=== PATIENT | male | born 1965 | race Caucasian/White ===

== ENCOUNTER 2016-10-10 11:09 | Inpatient (IN) | payer MEDICARE, OTHER ==
[2016-10-10] VITALS (16 sets, daily range): BP systolic 150–172; BP diastolic 89–105; PULSE 84–101; RESP 11–21; BMI 31.6
[~2016-10-10] VITALS: Ht 165.1 cm; Wt 84.8 kg
[2016-10-10] MEDS ORDERED: LORAZEPAM 2 MG INJ IV ONE (11:30)
[2016-10-10 11:48] LABS: BASOPHIL # 0.1 10^3/ul (0.0-0.1); BASOPHILS % 0.6 % (0.0-2.0); EOSINOPHILS # 0.2 10^3/ul (0.0-0.5); EOSINOPHILS % 1.6 % (0.0-7.0); HEMATOCRIT 34.2 % (42.0-52.0); HEMOGLOBIN 11.7 g/dl (14.0-18.0); LYMPHOCYTES # 3.3 10^3/ul (0.8-2.9); LYMPHOCYTES % 25.8 % (15.0-51.0); MEAN CORPUSCULAR HEMOGLOBIN 32.3 pg (29.0-33.0); MEAN CORPUSCULAR HGB CONC 34.4 g/dl (32.0-37.0); MEAN PLATELET VOLUME 7.6 fl (7.4-10.4); MONOCYTE # 1.3 10^3/ul (0.3-0.9); MONOCYTES % 10.3 % (0.0-11.0); NEUTROPHIL # 7.9 10^3/ul (1.6-7.5); NEUTROPHILS % 61.7 % (39.0-77.0); PLATELET COUNT 271 10^3/UL (140-440); RED BLOOD COUNT 3.64 10^6/ul (4.70-6.10); RED CELL DISTRIBUTION WIDTH 15.4 % (11.5-14.5); UNCORRECTED WBC 12.8 10^3/ul (4.8-10.8); WHITE BLOOD COUNT 12.8 10^3/ul (4.8-10.8)
[2016-10-10 11:50] LABS: CONDITION 1; LH ANALYZER COMMENTS 1
[2016-10-10 11:54] LABS: CHLORIDE 89 mmol/L (97-110)
[2016-10-10 11:55] LABS: POTASSIUM 3.9 mmol/L (3.5-5.1)
--- NOTE | 2016-10-10 11:56 | RADRPT ---
PROCEDURE: XR Chest. CLINICAL INDICATION: Sepsis TECHNIQUE: Chest AP portable. COMPARISON: 09/21/2016 FINDINGS: Tracheostomy tube. Right-sided WASTE MANAGEMENT SPECIALIST shunt. The mediastinal structures are unremarkable. The heart is normal in size and configuration. The pu lmonary vascularity is normal. There are bibasilar patchy consolidation/subsegmental atelectasis. There are small bilateral pleural effusions. The axial skeleton is unremarkable. IMPRESSION: Bibasilar patchy consolidation/subsegmental atelectasis Small bilateral pleural effusions RPTAT: HGDB .Rolo Fernandez MD, MD Date Time Electronically viewed and signed by .Rolo Fernandez MD, MD on 10/10/2016 11:55 .B/
[2016-10-10 11:57] LABS: ANION GAP 15 (8-16); ASPARTATE AMINO TRANSFERASE 65 IU/L (15-46); BILIRUBIN,INDIRECT 0.3 mg/dl (0-1.1); BILIRUBIN,TOTAL 0.3 mg/dl (0.2-1.3); CARBON DIOXIDE 19 mmol/L (21-31); CREATININE 0.32 mg/dl (0.61-1.24)
[2016-10-10 11:58] LABS: ALANINE AMINOTRANSFERASE 86 IU/L (13-69); ALKALINE PHOSPHATASE 227 IU/L (42-121); BLOOD UREA NITROGEN 12 mg/dl (7-20); CALCIUM 7.9 mg/dl (8.4-10.2); GLUCOSE 158 mg/dl (70-220)
[2016-10-10] MEDS ORDERED: SODIUM CHLORIDE 0.9% 1L BAG IV* STA (11:59)
[2016-10-10] MEDS ORDERED: CEFEPIME 2GM/50 ML (PMX) 50 ML IVPB STA (11:59)
[2016-10-10] MEDS ORDERED: CIPROFLOXACIN 400MG/D5W 200 ML IVPB STA (11:59)
[2016-10-10 12:07] LABS: SODIUM 119 mmol/L (135-144)
[2016-10-10 12:29] LABS: TROPONIN-I < 0.012 ng/ml (0.00-0.12)
[2016-10-10] MEDS ORDERED: LABETALOL HCL 20MG INJ IV ONE ×2 (12:30→21:00)
[2016-10-10 13:05] LABS: INR 1.03; PROTIME 13.5 Sec (12.2-14.2); PT RATIO 1.1
[2016-10-10 13:06] LABS: PARTIAL THROMBOPLASTIN TIME 47.7 Sec (25.0-35.0)
[2016-10-10] MEDS ORDERED: CEFAZOLIN 2 GM/50 ML (PMX) 50 ML IVPB ONE (13:30)
--- NOTE | 2016-10-10 13:39 | RADRPT ---
PROCEDURE: CT Brain without contrast. CLINICAL INDICATION: AMS, seizures TECHNIQUE: A CT of the brain was performed utilizing axial imaging from the skull base through the vertex without IV contrast. Multiplanar reformatted images were made. Images were reviewed on a [employer] workstation. The CTDIvol is 44 mGy and the DLP is 720 mGycm. COMPARISON: Head CT September 14, 2016 FINDINGS: Again noted is a right frontal PILOT BOAT DECKHAND shunt. The tip is in the frontal horn of the right lateral ventri ana lilia. There is evidence of old left frontal craniotomy. There is mild diffuse cerebral volume loss with sulcal and ventricular dilatation. No discrete extr a-axial fluid collection or masses present. The ventricles are in the midline and of normal contour and configuration. There is bifrontal encephalomalacia, left greater than right possibly related t o prior trauma. In addition, there is old infarct involving the left cerebellar hemisphere. No oth er intra-axial masses or regions of abnormal attenuation are seen. There is no intracranial hemorrh age. Noted is opacification of the right and left mastoid air cells, middle ear and petrous portion of th e temporal bones. Addition, there is complete opacification of the sphenoid sinus with opacificatio n of scattered ethmoid air cells. IMPRESSION: No acute abnormality. Atrophy. Right frontal PILOT BOAT DECKHAND shunt . Bifrontal white matter disease, left grea ter than right likely related to prior trauma. Old left cerebellar infarct. No intracranial hemorr eliezer or mass. No change. .Yeyo Carlos MD, MD Date Time Electronically viewed and signed by .Yeyo Carlos MD, MD on 10/10/2016 13:39 .A/
[2016-10-10 13:51] LABS: ADD UMIC NO; URINE BILIRUBIN (Dip) NEGATIVE (NEGATIVE); URINE BLOOD (Dip) NEGATIVE (NEGATIVE); URINE COLOR LT. YELLOW (YELLOW); URINE KETONES (Dip) NEGATIVE (NEGATIVE); URINE LEUKOCYTE ESTERASE (Dip) NEGATIVE (NEGATIVE); URINE NITRITE (Dip) NEGATIVE (NEGATIVE); URINE TOTAL PROTEIN (Dip) NEGATIVE (NEGATIVE); URINE UROBILINOGEN (Dip) 2.0 E.U./dL (0.1-1.0)
--- NOTE | 2016-10-10 13:53 | ERA ---
ER Documentation Chief Complaint Date/Time DATE: 10/10/16 TIME: 13:47 Chief Complaint seizure like activity HPI This is a 51-year-old male who presents to the emergency room from his rehabilitation center for evaluation of seizures. This patient is a trach to vent patient with a PEG tube secondary to previous CVA. According to the long term the patient has been having seizure-like activity for today. They deny any fevers in this patient and brought the patient in for evaluation. ROS All systems reviewed and are negative except as per history of present illness. Allergies Allergies: Coded Allergies: No Known Allergy (Unverified , 08/21/16) PMhx/Soc Hx Alcohol Use: No Hx Substance Use: No Hx Tobacco Use: No Smoking Status: Former smoker Physical Exam Vitals Vital Signs Date Time Temp Pulse Resp B/P Pulse Ox O2 Delivery O2 Flow Rate FiO2 10/10/16 13:41 98 14 159/99 99 Mechanical Ventilator 10/10/16 12:39 88 14 144/84 99 Room Air 10/10/16 11:43 126 17 98 50 10/10/16 11:23 98.2 127 18 184/106 98 Physical Exam INITIAL VITAL SIGNS: Reviewed by me GENERAL: The patient is poorly developed, actively seizing HEENT: Tracheostomy in place, pupils equal, round, and reactive to light. EOMI. There is no scleral icterus. NECK: C-spine is soft and supple, there is no meningismus. There is no cervical lymphadenopathy. LUNGS: Coarse breath sounds bilaterally HEART: Tachycardic, no murmurs, clicks, rubs or gallops. ABDOMEN: Soft, non-tender, non-distended. There are bowel sounds in all four quadrants. No rebound or guarding. EXTREMITIES: 2+ pitting edema in the bilateral lower extreme NEUROLOGICAL: Actively seizing SKIN: There is no apparent rash or petechiae. HEME/LYMPHATIC: There is no evidence of excessive bruising or lymphedema. PSYCHIATRIC: The patient does not appear anxious or depressed. Result Diagram: 10/10/16 1120 10/10/16 1120 Results 24 hrs Laboratory Tests Test 10/10/16 11:20 Activated Partial Thromboplast Time 47.7Sec Alanine Aminotransferase (ALT/SGPT) 86IU/L Albumin 3.0g/dl Albumin/Globulin Ratio 1.00 Alkaline Phosphatase 227IU/L Anion Gap 15 Aspartate Amino Transf (AST/SGOT) 65IU/L Basophils # 0.110^3/ul Basophils % 0.6% Blood Morphology Comment Blood Urea Nitrogen 12mg/dl Calcium Level 7.9mg/dl Carbon Dioxide Level 19mmol/L Chloride Level 89mmol/L Creatinine 0.32mg/dl Direct Bilirubin 0.00mg/dl Eosinophils # 0.210^3/ul Eosinophils % 1.6% Globulin 3.00g/dl Glucose Level 158mg/dl Hematocrit 34.2% Hemoglobin 11.7g/dl INR International Normalized Ratio 1.03 Indirect Bilirubin 0.3mg/dl Lactic Acid Level 1.6mmol/L Lymphocytes # 3.310^3/ul Lymphocytes % 25.8% Mean Corpuscular Hemoglobin 32.3pg Mean Corpuscular Hemoglobin Concent 34.4g/dl Mean Corpuscular Volume 94.0fl Mean Platelet Volume 7.6fl Monocytes # 1.310^3/ul Monocytes % 10.3% Neutrophils # 7.910^3/ul Neutrophils % 61.7% Nucleated Red Blood Cells # 0.010^3/ul Nucleated Red Blood Cells % 0.0/100WBC Platelet Count 16785^3/UL Potassium Level 3.9mmol/L Prothrombin Time 13.5Sec Prothrombin Time Ratio 1.1 Red Blood Count 3.6410^6/ul Red Cell Distribution Width 15.4% Sodium Level 119mmol/L Total Bilirubin 0.3mg/dl Total Protein 6.0g/dl Troponin I < 0.012ng/ml White Blood Count 12.810^3/ul Current Medications Medications (Trade) Dose Ordered Sig/Fanta Route PRN Reason Start Time Stop Time Status Last Admin Dose Admin Lorazepam (Ativan) 2 mg ONCE ONCE IV 10/10/16 11:30 10/10/16 11:31 10/10/16 11:25 Sodium Chloride 2330 ml 2,330 ml BOLUS OVER 2 HOURS STAT IV* 10/10/16 11:59 10/10/16 12:00 10/10/16 12:20 Cefepime HCl 50 ml @ 100 mls/hr ONCE STAT IVPB 10/10/16 11:59 10/10/16 12:28 10/10/16 13:40 Ciprofloxacin/ Dextrose (Cipro Ivpb) 200 ml @ 200 mls/hr ONCE STAT IVPB 10/10/16 11:59 10/10/16 12:58 10/10/16 12:20 Labetalol HCl 10 mg 10 mg ONCE ONCE IV 10/10/16 12:30 10/10/16 12:31 10/10/16 12:20 Cefazolin Sodium/ Dextrose (Ancef 2 Gm/50 ml (Pmx)) 50 ml @ 100 mls/hr ONCE ONCE IVPB 10/10/16 13:30 10/10/16 13:30 DC Procedures/MDM EKG: Rate/Rhythm: Sinus tachycardia QRS, ST, T-waves: [No changes consistent w/ acute ischemia] Impression: [No evidence of ischemia or arrhythmia] Chest X-ray 1V Interpreted by me: Soft Tissue: Bilateral pneumonia Bones: No acute abnormalities Mediastinum/Cardiac Silhouette/Lungs: [No acute abnormalities] CT head without: No acute abnormality. Atrophy. Right frontal WEBSITE PROJECT MANAGER shunt . Bifrontal white matter disease, left greater than right likely related to prior trauma. Old left cerebellar infarct. No intracranial hemorrhage or mass. No change. This is a 51-year-old male who presents to the emergency room for evaluation of seizure-like activity. When I evaluated him was actively seizing. He was tachycardic, and an actively seizing. I did give this patient 2 mg of Ativan which broke his seizure. This patient did have a septic workup which does show a critically low sodium of 119. This patient was also found to have bilateral pneumonias with a leukocytosis. Blood and urine cultures were obtained. The patient was given greater than 30 cc/kg of IV normal saline, and was started on cefepime and ciprofloxacin for hospital-acquired pneumonia with sepsis. This patient will be placed in for admission at this time and will be placed in ICU for critically low potassium. He has no seizure activity after Ativan, and I do not feel the necessity to administer 3% sodium chloride to 2 his response to Ativan at this time. He is a DNR however given his seizure activity and low sodium levels this patient will need to be placed in ICU at this time. Family is at bedside and is aware of his condition. Critical Care: Excluding all billable procedures Time: 38 minutes Treatments/Evaluations: Close monitoring and treatment of unstable vital signs, cardiorespiratory, and neurologic status, while maintaining tight balance of fluid, respiratory, and cardiac interventions. Departure Diagnosis: Primary Impression: Sepsis Additional Impressions: Bilateral pneumonia Hyponatremia Seizure-like activity Normocytic anemia Hyperchloremia Condition: Critical JAMES RIOS DO Oct 10, 2016 13:53
[2016-10-10] MEDS ORDERED: NITROGLYCERIN (SL) 0.4 MG TAB SL PRN (14:00)
[2016-10-10] MEDS ORDERED: SOD CHLORIDE 0.9% 1,000 ML IV ONE (14:00)
[2016-10-10] MEDS ORDERED: DOCUSATE SODIUM 100 MG CAP PO PRN (14:00)
--- NOTE | 2016-10-10 14:23 | HP ---
Date/Time of Note Date/Time of Note DATE: 10/10/16 TIME: 14:13 Assessment/Plan VTE Prophylaxis VTE Prophylaxis Intervention: SCD's Assessment/Plan Assessment/Plan 51 yo male with a past medical history of CVA with trach/peg status, who came via [facility] from [facility]. 1. Encephalopathy - neurologic type - will admit the patient to the ICU for seizures and severe hyponatremia. 2. Seizures 2/2 to severe hyponatremia - will consult neurology, start keppra, seizure precautions, prn ativan for overriding seizures, check TSH/Mag, Vit B12 , folate levels, EEG 3. Severe hyponatremia - IV NS bolus - as per renal, if not elevated SIADH vs other etiologies - will start hypertonic saline if need be 4. Sepsis 2/2 to bilateral pneumonia - HCAP - will start cefepime/vanc/levaquin - consult ID 5. Vent dependent respiratory failure - consult pulm, continue with vent - wean as tolerated 6. Anemia - chronic disease - monitor H/H 7. ADMINISTRATIVE JOB TITLES shunt - monitor any acute changes 8. Transaminitis - monitor - 2/2 to sepsis 9. CVA - precautions - hold aspirin 10. GI ppx - protonix 11. DVT ppx - scds as per clinical course. this critical care note took greater than 1 hour to complete HPI/ROS Admit Date/Time Admit Date/Time 10/10/2016, 2:13 pm Hx of Present Illness 51 yo male with a past medical history of CVA with trach/peg status, who came via [facility] from [facility]. He normally communicates through head motions, but as per the that suddenly declined. Otherwise all this information was gathered from the chart and ED physician since the patient is obtunded. ED course: ativan, seizure precautions ROS Subjective hx not possible: pt non-verbal PMH/Family/Social Past Medical History CVA, trach/peg, right vp corporate development shunt Past Surgical History trach/peg Social History Alcohol Use: none Smoking Status: Former smoker Drug Use: none Exam/Review of Systems Vital Signs Vitals Vital Signs Date Time Temp Pulse Resp B/P Pulse Ox O2 Delivery O2 Flow Rate FiO2 10/10/16 13:41 98 14 159/99 99 Mechanical Ventilator 10/10/16 11:43 50 10/10/16 11:23 98.2 Exam Exam Gen Octavia: obtunded HEENT: NC/AT, PERRLA, trach NECK: trached, no secretions noted THORAX: symmetrical, no obvious deformities CV: S1S2, RRR, no M/G/R Lungs: bilateral rhonchi with end expiratory wheezing noted, no crackles Abd: soft, NT/ND, +BS, no rebound, no guarding, neg HSM, peg site C/D/I EXT:trace bilateral lower extremity edema, no ecchymosis, no clubbing, muscle wasting noted Neuro: obtunded, no active seizure like activity noted Psych: cannot asses Skin: decreased skin turgor Labs Result Diagram: 10/10/16 1120 10/10/16 1120 Medications Medications Current Medications Lorazepam (Ativan) 2 mg ONCE ONCE IV Last administered on 10/10/16 11:25; Admin Dose 2 MG; Start 10/10/16 at 11:30; Stop 10/10/16 at 11:31 Labetalol HCl 10 mg 10 mg ONCE ONCE IV Last administered on 10/10/16 12:20; Admin Dose 10 MG; Start 10/10/16 at 12:30; Stop 10/10/16 at 12:31 Sodium Chloride (NS) 1,000 ml @ 75 mls/hr [id number] IV ; Start 10/10/16 at 13:49 ; Status UNV Ondansetron HCl (Zofran Inj) 4 mg Q6H PRN IV NAUSEA AND/OR VOMITING; Start 07/16 at 14:00; Status UNV Nitroglycerin (Nitroglycerin (Sl Tab) 0.4 Mg) 1 tab Q5M PRN SL CHEST PAIN; Start 10/10/16 at 14:00; Status UNV Acetaminophen (Tylenol Supp) 650 mg Q4H PRN [place] PAIN LEVEL 1-3 OR FEVER; Start 10/10/16 at 14:00; Status UNV Morphine Sulfate (morphine) 2 mg Q4H PRN IV PAIN LEVEL 7-10; Start 10/10/16 at 14:00; Status UNV Lorazepam (Ativan) 1 mg Q2H PRN IV ANXIETY; Start 10/10/16 at 14:00; Status UNV Docusate Sodium (Colace) 100 mg Q12H PRN PO CONSTIPATION; Start 10/10/16 at 14: 00; Status UNV Pantoprazole 40 mg 40 mg DAILY@06 IV ; Start 10/11/16 at 06:00; Status UNV Levetiracetam 1000 mg/Sodium Chloride 110 ml @ 440 mls/hr Q12 IVPB ; Start 07/16 at 14:00 Sodium Chloride (NS) 1,000 ml @ 1,000 mls/hr Q1H ONCE IV ; Start 10/10/16 at 14 :00; Stop 10/10/16 at 14:59; Status UNV Procedures Procedures CT brain IMPRESSION: No acute abnormality. Atrophy. Right frontal ADMINISTRATIVE JOB TITLES shunt . Bifrontal white matter disease, left greater than right likely related to prior trauma. Old left cerebellar infarct. No intracranial hemorrhage or mass. No change. CXR IMPRESSION: Bibasilar patchy consolidation/subsegmental atelectasis Small bilateral pleural effusions MADDY HOPKINS MD Oct 10, 2016 14:23
[2016-10-10] MEDS ORDERED: CEFEPIME 1GM/50 ML (PMX) 50 ML IVPB SCH (14:30)
[2016-10-10] MEDS ORDERED: VANCOMYCIN IV PER PHARMACY XX SCH (14:30)
[2016-10-10] MEDS ORDERED: ASPI81TA3 GTB (14:32)
[2016-10-10] MEDS ORDERED: ACET-2047 GTB (14:32)
[2016-10-10] MEDS ORDERED: ATOR40TA68 GTB (14:33)
[2016-10-10] MEDS ORDERED: UDCOL GTB (14:33)
[2016-10-10] MEDS ORDERED: BENA10TA48 GTB (14:33)
[2016-10-10] MEDS ORDERED: IPRA3AMP INHALATION (14:35)
[2016-10-10] MEDS ORDERED: FAMO20TA18 GTB (14:35)
[2016-10-10] MEDS ORDERED: UDFER GTB (14:36)
[2016-10-10] MEDS ORDERED: FLEETOIL PR (14:36)
[2016-10-10] MEDS ORDERED: TAMS-14 GTB (14:37)
[2016-10-10 14:38] LABS: BACTERIA,URINE MANY; URINE RBCS NONE SEEN /HPF (0)
[2016-10-10] MEDS ORDERED: GLUC1VIA6 IJ (14:44)
[2016-10-10] MEDS ORDERED: INSU100V3 IJ (14:45)
[2016-10-10] MEDS ORDERED: HYDR-3671 GTB (14:45)
[2016-10-10] MEDS ORDERED: LEVEM SC (14:46)
[2016-10-10] MEDS ORDERED: METO-448 GTB (14:46)
[2016-10-10] MEDS ORDERED: UDKCL40 GTB (14:47)
[2016-10-10] MEDS ORDERED: MULTI PO (14:47)
[2016-10-10] MEDS ORDERED: SODI1TAB2 GTB (14:49)
[2016-10-10] MEDS ORDERED: PROT946L GTB (14:49)
[2016-10-10] MEDS ORDERED: ONDA-43 GTB (14:50)
[2016-10-10] MEDS: LEVETIRACETAM IV 1,000 MG in SOD CHLORIDE 0.9% 100 ML IVPB SCH (15:45)
[2016-10-10] MEDS ORDERED: VANCOMYCIN 1.5 GM in SOD CHLORIDE 0.9% 250 ML IVPB SCH ×2 (16:00→18:00)
[2016-10-10] MEDS: LEVOFLOXACIN 500MG/D5W (PMX) 100 ML IVPB SCH (17:22)
--- NOTE | 2016-10-10 17:42 | CONS ---
Date/Time of Note Date/Time of Note DATE: 10/10/16 TIME: 17:15 Assessment/Plan Assessment/Plan Chief Complaint/Hosp Course ID ASSESSMENT 51 yo M w/PMHx CVA-> Brain Tumor post chemo tx w/indwelling VPS, trach, peg admit with: 1. SIRS vs Sepsis, associated w/leukocytosis, accelerated HTN, tachycardia, and encephalopathy 2. Bilateral pneumonia = HCAP @ SNF, possible Aspiration PNA 3. Acute on chronic hypoxic vent dependent respiratory failure 4. Seizure-like activity 5. Hyponatremia w/Hyperchloremia 6. Normocytic anemia 7. Generalized muscle weakness, debility CODE STATUS: DNR CURRENT ABX: Vanco IV + Cefepime + Levaquin ID RECOMMENDATIONS 1. Concur with current broad spectrum ABX * Avoid carbapenems in setting of acute seizure activity 2. Blood, Urine, sputum for micro C&S 3. Swab bilateral nares for MRSA screening 4. Will follow the patient closely with you * Once again, thank you for the privilege of ID Consultation referral - report called to Dr. Sales who concurs. Problems: Consultation Date/Type/Reason Admit Date/Time 10/10/2016, 2:13 pm Date of Consultation: Oct 10, 2016 Type of Consultation: INFECTIOUS DISEASES Reason for Consultation ANTIBIOTIC MANAGEMENT Referring Provider: MADDY HOPKINS MD Hx of Present Illness * I'd like to thank Dr. Panchal for referring the patient to the ID Consult services of "Leonard Sales MD". 51 yo M w/PMHx RADIATOR FITTER shunt, seizure disorder presents to [facility] from [facility] with severe hyponatremia of 119 associated with seizure activity, in addition to mild leukocytosis @ 12.8 with acute PNA findings on CXR. The patient was started on broad spectrum IV ABX coverage w/Vanco IV, Cefepime, and Levaquin. Blood, urine cultures are pending. He presented with accelerated HTN reading > 184/101 with tachycardia HR 127. No fevers recorded. DIAGNOSTIC IMAGING REPORT Patient: REINA LOUIS DOS: 10/10/16 1112 PROCEDURE: XR Chest. CLINICAL INDICATION: Sepsis TECHNIQUE: Chest AP portable. COMPARISON: 09/21/2016 FINDINGS: Tracheostomy tube. Right-sided RADIATOR FITTER shunt. The mediastinal structures are unremarkable. The heart is normal in size and configuration. The pulmonary vascularity is normal. There are bibasilar patchy consolidation/subsegmental atelectasis. There are small bilateral pleural effusions. The axial skeleton is unremarkable. IMPRESSION: Bibasilar patchy consolidation/subsegmental atelectasis Small bilateral pleural effusions RPTAT: HGDB 10/10/16 CT Brain IMPRESSION: No acute abnormality. Atrophy. Right frontal RADIATOR FITTER shunt . Bifrontal white matter disease, left greater than right likely related to prior trauma. Old left cerebellar infarct. No intracranial hemorrhage or mass. No change. Subjective hx not possible: pt non-verbal, pt critical status Past Medical History HTN Diabetes Hx of brain tumor -> treated w/chemo tx Respiratory failure w/Tracheostomy Dysphagia w/peg Past Surgical History RADIATOR FITTER shunt placement Trach placement Peg Social History Alcohol Use: none Smoking Status: Former smoker Drug Use: none Exam/Review of Systems Vital Signs Vitals Vital Signs Date Time Temp Pulse Resp B/P Pulse Ox O2 Delivery O2 Flow Rate FiO2 10/10/16 17:10 99 14 100 50 10/10/16 17:09 164/101 Mechanical Ventilator 10/10/16 11:23 98.2 Exam Constitutional: non-verbal, other (Generalized debility, muscle weakness, encephalopathic ) Psych: other (Obtunded, not able to assess) Head: normocephalic Eyes: nl conjunctiva, nl lids, nl sclera ENMT: mucosa pink and moist, nl external ears & nose, nl lips & teeth, nl nasal mucosa & septum Neck: jvd, supple, No bruits, No masses, No nuchal rigidity, No other, No thyromegaly Respiratory: other (Vented coarse BS ) Cardiovascular: other (NSR on tele monitor ), regular rate and rhythm Gastrointestinal: other (Peg), soft Musculoskeletal: muscle weakness, No muscle tone, No nl gait and stance, No range of motion Extremities: normal pulses, palpable cord, No clubbing, No edema Neurological: other (Encephalopathic, no purposeful movement seen, responds to physical stimuli ) Skin: nl turgor, No diaphoresis, No other, No rash or lesions Lymph: No nl lymph nodes Results Result Diagram: 10/10/16 1120 10/10/16 1120 Results 24 hrs Laboratory Tests Test 10/10/16 11:20 10/10/16 11:30 10/10/16 13:30 Activated Partial Thromboplast Time 47.7 H Alanine Aminotransferase (ALT/SGPT) 86 H Albumin 3.0 L Albumin/Globulin Ratio 1.00 Alkaline Phosphatase 227 H Anion Gap 15 Aspartate Amino Transf (AST/SGOT) 65 H Basophils # 0.1 Basophils % 0.6 Blood Morphology Comment Blood Urea Nitrogen 12 Calcium Level 7.9 L Carbon Dioxide Level 19 L Chloride Level 89 L Creatinine 0.32 L Direct Bilirubin 0.00 Eosinophils # 0.2 Eosinophils % 1.6 Globulin 3.00 Glucose Level 158 Hematocrit 34.2 #L Hemoglobin 11.7 #L INR International Normalized Ratio 1.03 Indirect Bilirubin 0.3 Lactic Acid Level 1.6 Lymphocytes # 3.3 H Lymphocytes % 25.8 Mean Corpuscular Hemoglobin 32.3 Mean Corpuscular Hemoglobin Concent 34.4 Mean Corpuscular Volume 94.0 Mean Platelet Volume 7.6 # Monocytes # 1.3 H Monocytes % 10.3 Neutrophils # 7.9 H Neutrophils % 61.7 Nucleated Red Blood Cells # 0.0 Nucleated Red Blood Cells % 0.0 Platelet Count 271 # Potassium Level 3.9 Prothrombin Time 13.5 Prothrombin Time Ratio 1.1 Red Blood Count 3.64 #L Red Cell Distribution Width 15.4 H Sodium Level 119 *L Total Bilirubin 0.3 Total Protein 6.0 L Troponin I < 0.012 White Blood Count 12.8 #H Free Thyroxine 1.03 Urine Bacteria MANY Urine Bilirubin NEGATIVE Urine Clarity HAZY Urine Color LT. YELLOW Urine Glucose 0.1% H Urine Hemoglobin NEGATIVE Urine Ketones NEGATIVE Urine Leukocyte Esterase NEGATIVE Urine Microscopic RBC NONE SEEN Urine Microscopic WBC 0-2 Urine Nitrite NEGATIVE Urine Specific [place] 1.015 Urine Total Protein NEGATIVE Urine Urobilinogen 2.0 E.U./dL H Urine pH 7.0 Medications Medications Current Medications Lorazepam (Ativan) 2 mg ONCE ONCE IV Last administered on 10/10/16t 11:25; Admin Dose 2 MG; Start 10/10/16 at 11:30; Stop 10/10/16 at 11:31 Labetalol HCl 10 mg 10 mg ONCE ONCE IV Last administered on 10/10/16t 12:20; Admin Dose 10 MG; Start 10/10/16 at 12:30; Stop 10/10/16 at 12:31 Sodium Chloride (NS) 1,000 ml @ 75 mls/hr [id number] IV ; Start 10/10/16 at 13:49 Ondansetron HCl (Zofran Inj) 4 mg Q6H PRN IV NAUSEA AND/OR VOMITING; Start 07/16 at 14:00 Nitroglycerin (Nitroglycerin (Sl Tab) 0.4 Mg) 1 tab Q5M PRN SL CHEST PAIN; Start 10/10/16 at 14:00 Acetaminophen (Tylenol Supp) 650 mg Q4H PRN [place] PAIN LEVEL 1-3 OR FEVER; Start 10/10/16 at 14:00 Morphine Sulfate (morphine) 2 mg Q4H PRN IV PAIN LEVEL 7-10; Start 10/10/16 at 14:00 Lorazepam (Ativan) 1 mg Q2H PRN IV ANXIETY; Start 10/10/16 at 14:00 Docusate Sodium (Colace) 100 mg Q12H PRN PO CONSTIPATION; Start 10/10/16 at 14: 00 Pantoprazole 40 mg 40 mg DAILY@06 IV ; Start 10/11/16 at 06:00 Levetiracetam 1000 mg/Sodium Chloride 110 ml @ 440 mls/hr Q12 IVPB Last administered on 10/10/16t 15:45; Admin Dose 440 MLS/HR; Start 10/10/16 at 14:00 Sodium Chloride 1,000 ml @ 1,000 mls/hr Q1H ONCE IV ; Start 10/10/16 at 14:00; Stop 10/10/16 at 14:59 Levofloxacin/ Dextrose 100 ml @ 100 mls/hr Q24H IVPB ; Start 10/10/16 at 14:30 Cefepime HCl 50 ml @ 100 mls/hr Q12 IVPB ; Start 10/10/16 at 21:00 Vancomycin HCl/ Sodium Chloride (Vancocin/NS) 250 ml @ 83.333 mls/ hr ONCE IVPB ; Start 10/10/16 at 16:00; Stop 10/10/16 at 18:00 ANGI PEOPLES NP Oct 10, 2016 17:26
[2016-10-10 17:47] LABS: URIC ACID 1.5 mg/dl (3.1-7.9)
[2016-10-10 18:18] LABS: THYROID STIMULATING HORMONE 3.6 MIU/L (0.465-4.680)
[2016-10-10] MEDS: SOD CHLORIDE 0.9% 1,000 ML IV SCH (18:52)
[2016-10-10] MEDS: hydrALAzine 20 MG INJ IV PRN (18:52)
[2016-10-10 21:07] LABS: POTASSIUM 4.1 mmol/L (3.5-5.1)
[2016-10-10 21:10] LABS: CREATININE 0.25 mg/dl (0.61-1.24)
[2016-10-10 21:11] LABS: CALCIUM 7.6 mg/dl (8.4-10.2); MAGNESIUM 1.7 mg/dl (1.7-2.5)
[2016-10-10] MEDS: CEFEPIME 1GM/50 ML (PMX) 50 ML IVPB SCH (22:57)
[2016-10-11] VITALS (61 sets, daily range): BP systolic 130–164; BP diastolic 72–96; PULSE 96–118; RESP 0–20; Ht 165.1 cm; Wt 84.8 kg
[2016-10-11] MEDS: LEVETIRACETAM IV 1,000 MG in SOD CHLORIDE 0.9% 100 ML IVPB SCH ×3 (01:05→21:33)
[2016-10-11] MEDS: SOD CHLORIDE 0.9% 1,000 ML IV SCH ×2 (01:06→06:02)
[2016-10-11 01:30] LABS: POTASSIUM 5.2 mmol/L (3.5-5.1)
[2016-10-11 01:32] LABS: CREATININE 0.2 mg/dl (0.61-1.24)
[2016-10-11 01:33] LABS: CALCIUM 7.2 mg/dl (8.4-10.2)
[2016-10-11] MEDS: hydrALAzine 20 MG INJ IV PRN (01:49)
[2016-10-11] MEDS: VANCOMYCIN 1 GM in NS 250 ML IVPB SCH ×3 (04:11→20:59)
[2016-10-11 05:13] LABS: AADO2 Arterial 136.5 mmHg (7.0-24.0); Allen Test ACCEPTAB; Arterial COHb 0.3 % (0.0-3.0); Arterial Fraction of Oxyhgb 98.3 % (93.0-99.0); Arterial HCO3 20.7 mmol/L (22.0-26.0); Arterial MetHb 0.4 % (0.0-1.5); Arterial Total Hemglobin 12.1 g/dl (12.0-18.0); MODE VENT - AC
--- NOTE | 2016-10-11 05:17 | CONS ---
DATE OF ADMISSION: 10/10/2016 DATE OF CONSULTATION: 10/10/2016 PULMONARY CONSULTATION PRIMARY PHYSICIAN: Dr. Jolley REASON FOR CONSULTATION: Vent-dependent respiratory failure. HISTORY OF PRESENT ILLNESS: Briefly, this is a 51-year-old gentleman with a history of cerebrovascu lar accident with chronic encephalopathy status post PEG on chronic mechanical ventilation as well a s status post G-tube who was transferred earlier today after being found to have seizure activity at the long-term facility. The patient was treated accordingly with Ativan with cessation of se izures in the emergency room but was noted to also have a sodium of 119. It is unclear if this is a n acute drop in the patient's sodium. PAST MEDICAL HISTORY: As noted above. PAST SURGICAL HISTORY: He has had a right BIOPHYSICS TEACHER shunt. SOCIAL HISTORY: No tobacco, alcohol, or illicit drug use. Lives in a long-term facility. FAMILY HISTORY: Noncontributory. REVIEW OF SYSTEMS: Unable to obtain. PHYSICAL EXAMINATION: VITAL SIGNS: Blood pressure 167/104, heart rate is 94, oxygen saturation 99% on 50% FIO2. HEENT: Tracheostomy in place. NECK: Supple, no thyromegaly. CARDIOVASCULAR: Regular rate and rhythm, S1, S2. No murmurs, rubs, or gallops. CHEST: Bilateral rhonchi with occasional wheezing heard. ABDOMEN: Soft, nontender. G-tube site is intact. EXTREMITIES: There is trace bilateral lower extremity edema with muscle wasting. LABORATORY DATA: WBC is 12.8, hemoglobin is 11.7. Sodium is 119, bicarbonate is 19, BUN is 12, cre atinine is 0.32. Chest x-ray shows bilateral lower lung field patchy airspace opacities. CT brain shows no acute abn ormalities. Right BIOPHYSICS TEACHER shunt is in place. IMPRESSION: 1. Chronic vent-dependent respiratory failure. 2. Sepsis, possibly due to a healthcare-associated pneumonia; however, cannot rule out BIOPHYSICS TEACHER shunt inf ection. 3. Seizures, possibly lowering threshold due to infection as well as hyponatremia. 4. Hyponatremia. 5. Chronic encephalopathy. RECOMMENDATIONS: 1. Ventilator support. 2. Q. 2 hour sodiums with initial increase in the first few hours by 2 to 3 millimoles; however, wo uld not increase sodium more than 8 millimoles over a period of 24 hours. 3. Follow up cultures. 4. Antibiotics as per ID. 5. Urine sodium and creatinine and urine osmolalities. 6. Obtain ABG and chest x-ray. 7. TSH and cortisol stim test to be obtained. Dictated By: ELINA BENTLEY MD NK/NTS Conf#: [id number] DID#: [id number] CC: JOSE MONTES DE OCA MD; MADDY JOLLEY MD;*EndCC*
[2016-10-11 05:26] LABS: BASOPHILS % 0.1 % (0.0-2.0); HEMOGLOBIN 11.3 g/dl (14.0-18.0); LYMPHOCYTES # 0.4 10^3/ul (0.8-2.9); LYMPHOCYTES % 3.2 % (15.0-51.0); MEAN CORPUSCULAR HGB CONC 34.1 g/dl (32.0-37.0); MEAN CORPUSCULAR VOLUME 93.9 fl (82.0-101.0); MEAN PLATELET VOLUME 6.9 fl (7.4-10.4); MONOCYTE # 1.1 10^3/ul (0.3-0.9); NEUTROPHILS % 87.7 % (39.0-77.0); PLATELET COUNT 253 10^3/UL (140-440); RED BLOOD COUNT 3.52 10^6/ul (4.70-6.10); RED CELL DISTRIBUTION WIDTH 15.4 % (11.5-14.5); UNCORRECTED WBC 12.5 10^3/ul (4.8-10.8); WHITE BLOOD COUNT 12.5 10^3/ul (4.8-10.8)
[2016-10-11 05:32] LABS: CREATININE 0.21 mg/dl (0.61-1.24)
[2016-10-11 05:33] LABS: CALCIUM 7.4 mg/dl (8.4-10.2)
[2016-10-11] MEDS: PANTOPRAZOLE 40 MG INJ IV SCH (05:37)
[2016-10-11 05:54] LABS: CONDITION 1; LH ANALYZER COMMENTS 1
[2016-10-11 07:17] LABS: ALBUMIN 2.7 g/dl (3.3-4.9)
[2016-10-11 07:18] LABS: POTASSIUM 3.8 mmol/L (3.5-5.1)
[2016-10-11 07:20] LABS: ALBUMIN/GLOBULIN RATIO 0.96; BILIRUBIN,INDIRECT 0.3 mg/dl (0-1.1); BILIRUBIN,TOTAL 0.3 mg/dl (0.2-1.3); CREATININE 0.24 mg/dl (0.61-1.24); TOTAL PROTEIN 5.5 g/dl (6.1-8.1)
[2016-10-11 07:21] LABS: CALCIUM 7.7 mg/dl (8.4-10.2)
[2016-10-11] MEDS ORDERED: MAGNESIUM SULFATE 2 GM/50 ML 50 ML IVPB ONE (08:30)
--- NOTE | 2016-10-11 08:31 | PN ---
Date/Time of Note Date/Time of Note DATE: 10/11/16 TIME: 08:25 Assessment/Plan VTE Prophylaxis VTE Prophylaxis Intervention: SCD's Lines/Catheters IV Catheter Type (from Nrs): Peripheral IV Urinary Cath still in place: Yes Reason Cath still needed: urinary retention Assessment/Plan Assessment/Plan 51 yo male with a past medical history of CVA with trach/peg status, who came via ambulance for seizure like activity from [facility]. 1. Encephalopathy - neurologic type - seizures and severe hyponatremia - monitor changes 2. Seizures 2/2 to severe hyponatremia - awaiting consult neurology, start keppra, seizure precautions, prn ativan for overriding seizures, Vit B12, folate levels, EEG 3. Severe hyponatremia - IV NS bolus - as per renal, if not elevated SIADH vs other etiologies - conivaptan vs desmopressin (DDAVP) - will defer to nephro 4. Sepsis 2/2 to bilateral pneumonia - HCAP - on cefepime/vanc/levaquin - appreciate ID 5. Vent dependent respiratory failure - appreciate pulm, continue with vent - wean as tolerated 6. Anemia - chronic disease - monitor H/H 7. [employer] shunt - monitor any acute changes 8. Transaminitis - monitor - 2/2 to sepsis 9. CVA - precautions - hold aspirin 10. GI ppx - protonix 11. DVT ppx - scds as per clinical course. monitor labs this critical care note took greater than 45 min to complete Subjective 24 Hr Interval Summary Free Text/Dictation Patient was admitted for seizures possibly secondary to hyponatremia. He did not have seizures overnight. Otherwise spoke to the nurse about the care plan. 15 minutes spent. Exam/Review of Systems Vital Signs Vitals Vital Signs Date Time Temp Pulse Resp B/P Pulse Ox O2 Delivery O2 Flow Rate FiO2 10/11/16 08:12 109 10/11/16 07:30 15 147/83 92 10/11/16 06:00 98.7 10/11/16 05:52 40 10/11/16 05:00 Mechanical Ventilator Intake and Output 10/10/16 10/10/16 10/11/16 15:00 23:00 07:00 Intake Total 550 ml 935 ml Output Total 2380 ml 2300 ml Balance -1830 ml -1365 ml Exam Gen Octavia: obtunded HEENT: NC/AT, PERRLA, trach NECK: trached, no secretions noted THORAX: symmetrical, no obvious deformities CV: S1S2, RRR, no M/G/R Lungs: bilateral rhonchi with end expiratory wheezing noted, no crackles Abd: soft, NT/ND, +BS, no rebound, no guarding, neg HSM, peg site C/D/I EXT:trace bilateral lower extremity edema, no ecchymosis, no clubbing, muscle wasting noted Neuro: obtunded, no active seizure like activity noted Psych: cannot asses Skin: decreased skin turgor Results Result Diagram: 10/11/16 0445 10/11/16 0455 Results 24 hrs Laboratory Tests Test 10/10/16 11:20 10/10/16 11:30 10/10/16 13:30 10/10/16 19:10 Activated Partial Thromboplast Time 47.7 H Alanine Aminotransferase (ALT/SGPT) 86 H Albumin 3.0 L Albumin/Globulin Ratio 1.00 Alkaline Phosphatase 227 H Anion Gap 15 15 Aspartate Amino Transf (AST/SGOT) 65 H Basophils # 0.1 Basophils % 0.6 Blood Morphology Comment Blood Urea Nitrogen 12 11 Calcium Level 7.9 L 7.6 L Carbon Dioxide Level 19 L 18 L Chloride Level 89 L 92 L Creatinine 0.32 L 0.25 L Direct Bilirubin 0.00 Eosinophils # 0.2 Eosinophils % 1.6 Globulin 3.00 Glucose Level 158 270 #H Hematocrit 34.2 #L Hemoglobin 11.7 #L INR International Normalized Ratio 1.03 Indirect Bilirubin 0.3 Lactic Acid Level 1.6 1.5 Lymphocytes # 3.3 H Lymphocytes % 25.8 Mean Corpuscular Hemoglobin 32.3 Mean Corpuscular Hemoglobin Concent 34.4 Mean Corpuscular Volume 94.0 Mean Platelet Volume 7.6 # Monocytes # 1.3 H Monocytes % 10.3 Neutrophils # 7.9 H Neutrophils % 61.7 Nucleated Red Blood Cells # 0.0 Nucleated Red Blood Cells % 0.0 Platelet Count 271 # Potassium Level 3.9 4.1 Prothrombin Time 13.5 Prothrombin Time Ratio 1.1 Red Blood Count 3.64 #L Red Cell Distribution Width 15.4 H Sodium Level 119 *L 121 L Total Bilirubin 0.3 Total Protein 6.0 L Troponin I < 0.012 0.341 *H White Blood Count 12.8 #H Creatine Kinase 98 Free Thyroxine 1.03 Osmolality 257 L Random Cortisol 20.3 Thyroid Stimulating Hormone (TSH) 3.600 Uric Acid 1.5 L Urine Bacteria MANY Urine Bilirubin NEGATIVE Urine Clarity HAZY Urine Color LT. YELLOW Urine Eosinophils % 0.0 Urine Glucose 0.1% H Urine Hemoglobin NEGATIVE Urine Ketones NEGATIVE Urine Leukocyte Esterase NEGATIVE Urine Microscopic RBC NONE SEEN Urine Microscopic WBC 0-2 Urine Nitrite NEGATIVE Urine Osmolality 482 Urine Random Creatinine 27.88 Urine Random Sodium 124 H Urine Specific [place] 1.015 Urine Total Protein Urine Urobilinogen 2.0 E.U./dL H Urine pH 7.0 Magnesium Level 1.7 Test 10/11/16 00:55 10/11/16 04:45 10/11/16 04:55 10/11/16 05:00 Anion Gap 13 14 Blood Urea Nitrogen 8 8 Calcium Level 7.2 L 7.4 L Carbon Dioxide Level 18 L 18 L Chloride Level 93 L 93 L Creatinine 0.20 L 0.21 L Glucose Level 218 195 Potassium Level 5.2 H 4.0 Sodium Level 119 *L 121 L Basophils # 0.0 Basophils % 0.1 Blood Morphology Comment Eosinophils # 0.0 Eosinophils % 0.0 Hematocrit 33.0 L Hemoglobin 11.3 L Lymphocytes # 0.4 L Lymphocytes % 3.2 L Mean Corpuscular Hemoglobin 32.0 Mean Corpuscular Hemoglobin Concent 34.1 Mean Corpuscular Volume 93.9 Mean Platelet Volume 6.9 L Monocytes # 1.1 H Monocytes % 9.0 Neutrophils # 11.0 H Neutrophils % 87.7 H Nucleated Red Blood Cells # 0.0 Nucleated Red Blood Cells % 0.0 Platelet Count 253 Red Blood Count 3.52 L Red Cell Distribution Width 15.4 H White Blood Count 12.5 H Alanine Aminotransferase (ALT/SGPT) 78 H Albumin 2.7 L Albumin/Globulin Ratio 0.96 Alkaline Phosphatase 194 H Aspartate Amino Transf (AST/SGOT) 68 H Direct Bilirubin 0.00 Globulin 2.80 Indirect Bilirubin 0.3 Lactic Acid Level 0.9 Total Bilirubin 0.3 Total Protein 5.5 L Arterial Blood HCO3 20.7 L Arterial Blood Base Excess -4.0 L Arterial Blood Oxygen Saturation 99.0 H Lior Test ACCEPTAB Arterial Blood Gas Puncture Site Right Radial Arterial Blood Carboxyhemoglobin 0.3 Arterial Blood Date Drawn 10/11/2016 4:55:33 AM Arterial Blood Methemoglobin 0.4 Arterial Blood pCO2 (Temp correct) 36.4 Arterial Blood pH (Temp corrected) 7.373 Arterial Blood pO2 (Temp corrected) 179.1 H Blood Gas A-a O2 Differential 136.5 H Blood Gas Actual Respiration Rate 14 Blood Gas Inspiratory Pressure 20.0 Blood Gas Low PEEP Setting 5.0 Blood Gas Modality VENT - AC Blood Gas Notified Time 10/11/2016 5:13:17 AM Blood Gas Notified Whom MG Blood Gas Respiration Rate 14.0 Blood Gas Specimen Source Blood arterial Blood Gas Temperature 37.0 Blood Gas Tidal Volume 500.0 FiO2 50.0 Oxyhemoglobin Percent 98.3 Total Hemoglobin 12.1 Medications Medications Current Medications Lorazepam (Ativan) 2 mg ONCE ONCE IV Last administered on 10/10/16 11:25; Admin Dose 2 MG; Start 10/10/16 at 11:30; Stop 10/10/16 at 11:31 Labetalol HCl 10 mg 10 mg ONCE ONCE IV Last administered on 10/10/16 12:20; Admin Dose 10 MG; Start 10/10/16 at 12:30; Stop 10/10/16 at 12:31 Sodium Chloride (NS) 1,000 ml @ 75 mls/hr [id number] IV Last administered on 10/11 06:02; Admin Dose 75 MLS/HR; Start 10/10/16 at 13:49 Ondansetron HCl (Zofran Inj) 4 mg Q6H PRN IV NAUSEA AND/OR VOMITING; Start 07/16 at 14:00 Nitroglycerin (Nitroglycerin (Sl Tab) 0.4 Mg) 1 tab Q5M PRN SL CHEST PAIN; Start 10/10/16 at 14:00 Acetaminophen (Tylenol Supp) 650 mg Q4H PRN [place] PAIN LEVEL 1-3 OR FEVER; Start 10/10/16 at 14:00 Morphine Sulfate (morphine) 2 mg Q4H PRN IV PAIN LEVEL 7-10; Start 10/10/16 at 14:00 Lorazepam (Ativan) 1 mg Q2H PRN IV ANXIETY; Start 10/10/16 at 14:00 Docusate Sodium (Colace) 100 mg Q12H PRN PO CONSTIPATION; Start 10/10/16 at 14: 00 Pantoprazole 40 mg 40 mg DAILY@06 IV Last administered on 10/11/16 05:37; Admin Dose 40 MG; Start 10/11/16 at 06:00 Levetiracetam 1000 mg/Sodium Chloride 110 ml @ 440 mls/hr Q12 IVPB Last administered on 10/11/16 01:05; Admin Dose 440 MLS/HR; Start 10/10/16 at 14:00 Sodium Chloride 1,000 ml @ 1,000 mls/hr Q1H ONCE IV Last administered on 17:21; Admin Dose 1,000 MLS/HR; Start 10/10/16 at 14:00; Stop 10/10/16 at 14:59 Levofloxacin/ Dextrose 100 ml @ 100 mls/hr Q24H IVPB Last administered on 10/10 17:22; Admin Dose 100 MLS/HR; Start 10/10/16 at 14:30 Cefepime HCl 50 ml @ 100 mls/hr Q12 IVPB Last administered on 10/10/16 22:57 ; Admin Dose 100 MLS/HR; Start 10/10/16 at 21:00 Vancomycin HCl 1.5 gm/Sodium Chloride 250 ml @ 83.333 mls/ hr ONCE IVPB Last administered on 10/10/16 18:52; Admin Dose 83.333 MLS/HR; Start 10/10/16 at 18: 00; Stop 10/10/16 at 20:00 Vancomycin HCl (Vancocin) 250 ml @ 125 mls/hr Q8H IVPB Last administered on 04:11; Admin Dose 125 MLS/HR; Start 10/11/16 at 04:00 Hydralazine HCl (Apresoline) 10 mg Q6H PRN IV ELEVATED BLOOD PRESSURE Last administered on 10/11/16 01:49; Admin Dose 10 MG; Start 10/10/16 at 19:00 Labetalol HCl 20 mg 20 mg ONCE ONCE IV Last administered on 10/10/16 20:57; Admin Dose 20 MG; Start 10/10/16 at 21:00; Stop 10/10/16 at 21:01 Magnesium Sulfate (Magnesium Sulfate 2 Gm/50 ml) 50 ml @ 25 mls/hr ONCE ONCE IVPB ; Start 10/11/16 at 08:30; Stop 10/11/16 at 10:29 MADDY HOPKINS MD Oct 11, 2016 08:30
--- NOTE | 2016-10-11 09:26 | CONS ---
DATE OF ADMISSION: 10/10/2016 DATE OF CONSULTATION: 10/10/2016 TYPE OF CONSULTATION: Nephrology. REASON FOR CONSULTATION: Severe hyponatremia. The patient presented with seizures. REFERRING PHYSICIAN: Dr. Maddy Jolley. HISTORY OF PRESENT ILLNESS: This is a 51-year-old male with a past medical history of previous brain tumor and had chemotherapy for brain tumors. The patient has been debilitated, had a PRODUCT DESIGN MANAGER shunt in place, history of chronic respiratory failure on a ventilator, status post tracheostomy, hypertension, history of a G-tube placement. The patient was brought in by paramedics today with a seizure-like activity from [facility]. The patient is anoxic encephalopathy and noted to have severe hyponatremia with a sodium of ___ _. The patient is getting admitted to the ICU and nephrology was consulted because of severe hypernatremia. REVIEW OF SYSTEMS: Unable to obtain from the patient. 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 PAST SURGICAL HISTORY: History of a PRODUCT DESIGN MANAGER shunt, history of brain tumor surgery, history of brain radiation, history of G-tube. history of tracheostomy. 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 FAMILY HISTORY: Not available. PHYSICAL EXAMINATION: VITAL SIGNS: Temperature 98.2, heart rate 98, respiration 14, blood pressure 159/99, saturation is 99% on mechanical ventilator, FIO2 50%. GENERAL: The patient is currently on a ventilator, status post tracheostomy. HEENT: Tracheostomy site is clear. LUNGS: Bilateral coarse breath sounds with bilateral basilar rales present and lower lobe rhonchi present. HEART: S1, S2, tachycardia, no murmur. ABDOMEN: Soft. G-tube in place. EXTREMITIES: No clubbing, cyanosis, or edema. The patient is very debilitated. PSYCHIATRIC: Not able to assess. NEUROLOGICAL: Not able to assess. SKIN: Not able to assess because the patient is currently with multiple drips. VITAL SIGNS: Temperature 98.2, heart rate ____, respirations 17, blood pressure ____, 30, saturation is 99% on FIO2 50%. LABORATORY DATA AND DIAGNOSTIC IMAGIN. WBC 12.8, hemoglobin 11.7, platelet count is 271. Sodium 119, potassium 3.9 , chloride 89, bicarbonate 19, BUN 12, creatinine 0.8, glucose 158, calcium 7.9 , AST 65, ALT 86, alkaline phosphatase 227, albumin is 3. 2. Urinalysis shows 2 urobilinogen, many bacteria. 3. Chest x-ray shows bilateral patchy consolidation consistent with possible pneumonia. 4. CT brain which shows a PRODUCT DESIGN MANAGER shunt in place, no acute abnormalities, atrophy, bifrontal white matter disease, old left cerebellar infarct. IMPRESSION: This is a 49-year-old male with: 1. Severe hypernatremia with a sodium of 119, possibly acute on chronic hyponatremia versus acute severe hyponatremia. 2. Seizures secondary to severe hyponatremia. 3. Sepsis secondary to bilateral pneumonia. 4. Ventilator-dependent respiratory failure, status post tracheostomy, on vent. 5. History of a previous brain tumor, had surgery. Currently, status post ventriculoperitoneal shunt in place. 6. History of a previous cerebellar cerebrovascular accident. PLAN: 1. Thank you, Dr. Maddy Jolley, for this consultation. I will order the patient's urine studies including a urine sodium, urine osmolality, serum osmolality, urine protein, urine creatinine, urine eosinophils. 2. I will also order the patient's TSH, free T4, and cortisol level with uric acid and CK total level. 3. The patient's creatinine currently has been normal at 0.32, so no need for ultrasounds. 4. BMP to follow up on the sodium. After 4 hours if the patient's BMP does not improve after IV fluid hydration plan is to do 3% hypertonic saline and monitor his sodium closely. 5. The patient currently seen in the emergency room and he will be getting admitted to the ICU. Total Time Spent in patient Care and consultation including communication with Nursing Staff and educating Patient and Familiy is more than 60 minutes. Dictated By: LISSA PARK MD, KP/PIPER Conf#: [id number] DID#: [id number] CC: MADDY JOLLEY MD;*EndCC* MTDD
[2016-10-11] MEDS: CEFEPIME 1GM/50 ML (PMX) 50 ML IVPB SCH ×2 (09:38→20:23)
--- NOTE | 2016-10-11 09:41 | RADRPT ---
PROCEDURE: XR Chest. CLINICAL INDICATION: Shortness of breath. TECHNIQUE: Single frontal view. COMPARISON: 10/10/2016. FINDINGS: The right MORNING NANNY shunt catheter and tracheostomy tube remain in position. There is atelectasis or pneum onia at the lung bases, unchanged The heart size is normal. There are small bilateral pleural effusions. There is no pneumothorax. IMPRESSION: 1. No change from 10/10/2016. RPTAT: QQ .Shaan Kirk MD, MD Date Time Electronically viewed and signed by .Shaan Kirk MD, MD on 10/11/2016 09:41 .R/
[2016-10-11 10:06] LABS: FOLATE 19.3 ng/ml (2.8-20.0)
--- NOTE | 2016-10-11 10:21 | CONS ---
Date/Time of Note Date/Time of Note DATE: 10/11/16 TIME: 10:18 Assessment/Plan Assessment/Plan Additional Assessment/Plan 1. Severe hypernatremia with a sodium of 119, possibly acute on chronic hyponatremia versus acute severe hyponatremia. 2. Seizures secondary to severe hyponatremia. 3. Sepsis secondary to bilateral pneumonia. 4. Ventilator-dependent respiratory failure, status post tracheostomy, on vent. 5. History of a previous brain tumor, had surgery. Currently, status post ventriculoperitoneal shunt in place. 6. History of a previous cerebellar cerebrovascular accident. PLAN: on IVF NS ,Na dropped to 121 today AM will order 3 % saline for 12 hr then monitor Na- since pt has seizures associated with Severe hyponatremia IV abx as per ID vent care as per pulmonary will continue to follow up Consultation Date/Type/Reason Admit Date/Time Oct 10, 2016 at 13:53 Initial Consult Date 10/10/16 Type of Consultation: NEPHROLOGY Referring Provider: MADDY HOPKINS MD 24 HR Interval Summary Free Text/Dictation Na went upto 122 then dropped to 121 today AM despite being on IVF NS ,pt on ventilator Exam/Review of Systems Vital Signs Vitals Vital Signs Date Time Temp Pulse Resp B/P Pulse Ox O2 Delivery O2 Flow Rate FiO2 10/11/16 10:00 113 14 154/90 95 10/11/16 08:30 98.6 10/11/16 05:52 40 10/11/16 05:00 Mechanical Ventilator Intake and Output 10/10/16 10/10/16 10/11/16 15:00 23:00 07:00 Intake Total 550 ml 935 ml Output Total 2380 ml 2300 ml Balance -1830 ml -1365 ml Exam GENERAL: The patient is currently on a ventilator, status post tracheostomy. HEENT: Tracheostomy site is clear. LUNGS: Bilateral coarse breath sounds with bilateral basilar rales present and lower lobe rhonchi present. HEART: S1, S2, tachycardia, no murmur. ABDOMEN: Soft. G-tube in place. EXTREMITIES: No clubbing, cyanosis, or edema. The patient is very debilitated. PSYCHIATRIC: Not able to assess. NEUROLOGICAL: Not able to assess. Results Result Diagram: 10/11/16 0445 10/11/16 0455 Results 24 hrs Laboratory Tests Test 10/10/16 11:20 10/10/16 11:30 10/10/16 13:30 10/10/16 19:10 Activated Partial Thromboplast Time 47.7 H Alanine Aminotransferase (ALT/SGPT) 86 H Albumin 3.0 L Albumin/Globulin Ratio 1.00 Alkaline Phosphatase 227 H Anion Gap 15 15 Aspartate Amino Transf (AST/SGOT) 65 H Basophils # 0.1 Basophils % 0.6 Blood Morphology Comment Blood Urea Nitrogen 12 11 Calcium Level 7.9 L 7.6 L Carbon Dioxide Level 19 L 18 L Chloride Level 89 L 92 L Creatinine 0.32 L 0.25 L Direct Bilirubin 0.00 Eosinophils # 0.2 Eosinophils % 1.6 Globulin 3.00 Glucose Level 158 270 #H Hematocrit 34.2 #L Hemoglobin 11.7 #L INR International Normalized Ratio 1.03 Indirect Bilirubin 0.3 Lactic Acid Level 1.6 1.5 Lymphocytes # 3.3 H Lymphocytes % 25.8 Mean Corpuscular Hemoglobin 32.3 Mean Corpuscular Hemoglobin Concent 34.4 Mean Corpuscular Volume 94.0 Mean Platelet Volume 7.6 # Monocytes # 1.3 H Monocytes % 10.3 Neutrophils # 7.9 H Neutrophils % 61.7 Nucleated Red Blood Cells # 0.0 Nucleated Red Blood Cells % 0.0 Platelet Count 271 # Potassium Level 3.9 4.1 Prothrombin Time 13.5 Prothrombin Time Ratio 1.1 Red Blood Count 3.64 #L Red Cell Distribution Width 15.4 H Sodium Level 119 *L 121 L Total Bilirubin 0.3 Total Protein 6.0 L Troponin I < 0.012 0.341 *H White Blood Count 12.8 #H Creatine Kinase 98 Free Thyroxine 1.03 Osmolality 257 L Random Cortisol 20.3 Thyroid Stimulating Hormone (TSH) 3.600 Uric Acid 1.5 L Urine Bacteria MANY Urine Bilirubin NEGATIVE Urine Clarity HAZY Urine Color LT. YELLOW Urine Eosinophils % 0.0 Urine Glucose 0.1% H Urine Hemoglobin NEGATIVE Urine Ketones NEGATIVE Urine Leukocyte Esterase NEGATIVE Urine Microscopic RBC NONE SEEN Urine Microscopic WBC 0-2 Urine Nitrite NEGATIVE Urine Osmolality 482 Urine Random Creatinine 27.88 Urine Random Sodium 124 H Urine Specific [place] 1.015 Urine Total Protein Urine Urobilinogen 2.0 E.U./dL H Urine pH 7.0 Magnesium Level 1.7 Test 10/11/16 00:55 10/11/16 04:45 10/11/16 04:55 10/11/16 05:00 Anion Gap 13 14 Blood Urea Nitrogen 8 8 Calcium Level 7.2 L 7.4 L Carbon Dioxide Level 18 L 18 L Chloride Level 93 L 93 L Creatinine 0.20 L 0.21 L Glucose Level 218 195 Potassium Level 5.2 H 4.0 Sodium Level 119 *L 121 L Basophils # 0.0 Basophils % 0.1 Blood Morphology Comment Eosinophils # 0.0 Eosinophils % 0.0 Hematocrit 33.0 L Hemoglobin 11.3 L Lymphocytes # 0.4 L Lymphocytes % 3.2 L Mean Corpuscular Hemoglobin 32.0 Mean Corpuscular Hemoglobin Concent 34.1 Mean Corpuscular Volume 93.9 Mean Platelet Volume 6.9 L Monocytes # 1.1 H Monocytes % 9.0 Neutrophils # 11.0 H Neutrophils % 87.7 H Nucleated Red Blood Cells # 0.0 Nucleated Red Blood Cells % 0.0 Platelet Count 253 Red Blood Count 3.52 L Red Cell Distribution Width 15.4 H White Blood Count 12.5 H Alanine Aminotransferase (ALT/SGPT) 78 H Albumin 2.7 L Albumin/Globulin Ratio 0.96 Alkaline Phosphatase 194 H Aspartate Amino Transf (AST/SGOT) 68 H Direct Bilirubin 0.00 Folate 19.3 Globulin 2.80 Indirect Bilirubin 0.3 Lactic Acid Level 0.9 Total Bilirubin 0.3 Total Protein 5.5 L Vitamin B12 Level > 1000 H Arterial Blood HCO3 20.7 L Arterial Blood Base Excess -4.0 L Arterial Blood Oxygen Saturation 99.0 H Lior Test ACCEPTAB Arterial Blood Gas Puncture Site Right Radial Arterial Blood Carboxyhemoglobin 0.3 Arterial Blood Date Drawn 10/11/2016 4:55:33 AM Arterial Blood Methemoglobin 0.4 Arterial Blood pCO2 (Temp correct) 36.4 Arterial Blood pH (Temp corrected) 7.373 Arterial Blood pO2 (Temp corrected) 179.1 H Blood Gas A-a O2 Differential 136.5 H Blood Gas Actual Respiration Rate 14 Blood Gas Inspiratory Pressure 20.0 Blood Gas Low PEEP Setting 5.0 Blood Gas Modality VENT - AC Blood Gas Notified Time 10/11/2016 5:13:17 AM Blood Gas Notified Whom MG Blood Gas Respiration Rate 14.0 Blood Gas Specimen Source Blood arterial Blood Gas Temperature 37.0 Blood Gas Tidal Volume 500.0 FiO2 50.0 Oxyhemoglobin Percent 98.3 Total Hemoglobin 12.1 Medications Medications Current Medications Lorazepam (Ativan) 2 mg ONCE ONCE IV Last administered on 10/10/16 11:25; Admin Dose 2 MG; Start 10/10/16 at 11:30; Stop 10/10/16 at 11:31 Labetalol HCl 10 mg 10 mg ONCE ONCE IV Last administered on 10/10/16 12:20; Admin Dose 10 MG; Start 10/10/16 at 12:30; Stop 10/10/16 at 12:31 Sodium Chloride (NS) 1,000 ml @ 75 mls/hr [id number] IV Last administered on 10/11 06:02; Admin Dose 75 MLS/HR; Start 10/10/16 at 13:49 Ondansetron HCl (Zofran Inj) 4 mg Q6H PRN IV NAUSEA AND/OR VOMITING; Start 07/16 at 14:00 Nitroglycerin (Nitroglycerin (Sl Tab) 0.4 Mg) 1 tab Q5M PRN SL CHEST PAIN; Start 10/10/16 at 14:00 Acetaminophen (Tylenol Supp) 650 mg Q4H PRN [place] PAIN LEVEL 1-3 OR FEVER; Start 10/10/16 at 14:00 Morphine Sulfate (morphine) 2 mg Q4H PRN IV PAIN LEVEL 7-10; Start 10/10/16 at 14:00 Lorazepam (Ativan) 1 mg Q2H PRN IV ANXIETY; Start 10/10/16 at 14:00 Docusate Sodium (Colace) 100 mg Q12H PRN PO CONSTIPATION; Start 10/10/16 at 14: 00 Pantoprazole 40 mg 40 mg DAILY@06 IV Last administered on 10/11/16 05:37; Admin Dose 40 MG; Start 10/11/16 at 06:00 Levetiracetam 1000 mg/Sodium Chloride 110 ml @ 440 mls/hr Q12 IVPB Last administered on 10/11/16 10:05; Admin Dose 440 MLS/HR; Start 10/10/16 at 14:00 Sodium Chloride 1,000 ml @ 1,000 mls/hr Q1H ONCE IV Last administered on 17:21; Admin Dose 1,000 MLS/HR; Start 10/10/16 at 14:00; Stop 10/10/16 at 14:59 Levofloxacin/ Dextrose 100 ml @ 100 mls/hr Q24H IVPB Last administered on 10/10 17:22; Admin Dose 100 MLS/HR; Start 10/10/16 at 14:30 Cefepime HCl 50 ml @ 100 mls/hr Q12 IVPB Last administered on 10/11/16 09:38 ; Admin Dose 100 MLS/HR; Start 10/10/16 at 21:00 Vancomycin HCl 1.5 gm/Sodium Chloride 250 ml @ 83.333 mls/ hr ONCE IVPB Last administered on 10/10/16 18:52; Admin Dose 83.333 MLS/HR; Start 10/10/16 at 18: 00; Stop 10/10/16 at 20:00 Vancomycin HCl (Vancocin) 250 ml @ 125 mls/hr Q8H IVPB Last administered on 04:11; Admin Dose 125 MLS/HR; Start 10/11/16 at 04:00 Hydralazine HCl (Apresoline) 10 mg Q6H PRN IV ELEVATED BLOOD PRESSURE Last administered on 10/11/16 01:49; Admin Dose 10 MG; Start 10/10/16 at 19:00 Labetalol HCl 20 mg 20 mg ONCE ONCE IV Last administered on 10/10/16 20:57; Admin Dose 20 MG; Start 10/10/16 at 21:00; Stop 10/10/16 at 21:01 Magnesium Sulfate (Magnesium Sulfate 2 Gm/50 ml) 50 ml @ 25 mls/hr ONCE ONCE IVPB ; Start 10/11/16 at 08:30; Stop 10/11/16 at 10:29 LISSA PARK MD Oct 11, 2016 10:20
[2016-10-11] MEDS ORDERED: NACL 3% 500 ML IV SCH (10:30)
--- NOTE | 2016-10-11 11:26 | CONS ---
Date/Time of Note Date/Time of Note DATE: 10/11/16 TIME: 11:20 Assessment/Plan Assessment/Plan Chief Complaint/Hosp Course ID PROGRESS NOTE TOTAL ABX DAY #2 => Vanco IV, Cefepime, Levaquin 24H INTERVAL SUMMARY * HPI: 51 yo M w/PMHx [employer] shunt, seizure disorder presents to [facility] from SNF with severe hyponatremia of 119 associated with seizure activity, in addition to mild leukocytosis @ 12.8 with acute PNA findings on CXR. The patient was started on broad spectrum IV ABX coverage w/Vanco IV, Cefepime, and Levaquin. Blood, urine cultures are pending. He presented with accelerated HTN reading > 184/101 with tachycardia HR 127. No fevers recorded -> (+) Low grade temps. 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 SIRS vs Sepsis, associated w/leukocytosis, accelerated HTN, tachycardia, and encephalopathy 2. Bilateral pneumonia = HCAP @ SNF, possible Aspiration PNA 3. Acute on chronic hypoxic vent dependent respiratory failure 4. Seizure-like activity 5. Acute complicated UTI on admission: URINE CULTURE Preliminary Organism 1 ENTEROCOCCUS SPECIES COLONY COUNT >100,000 CFU/ml 6. Normocytic anemia 7. Hyponatremia w/Hyperchloremia 8. Generalized muscle weakness, debility CODE STATUS: DNR CURRENT ABX: Vanco IV + Cefepime + Levaquin TOTAL ABX DAY #2 => Vanco IV, Cefepime, Levaquin ID RECOMMENDATIONS 1. Concur with current broad spectrum ABX = f/u on Enterococcus UTI sensitivities ?VRE * Avoid carbapenems in setting of acute seizure activity 2. Blood, Urine, sputum for micro C&S -> Pending 3. Bilateral nares for MRSA screening -> Pending 4. Will follow the patient closely with you Problems: Consultation Date/Type/Reason Admit Date/Time Oct 10, 2016 at 13:53 Initial Consult Date 10/10/16 Type of Consultation: ID Referring Provider: MADDY HOPKINS MD Exam/Review of Systems Vital Signs Vitals Vital Signs Date Time Temp Pulse Resp B/P Pulse Ox O2 Delivery O2 Flow Rate FiO2 10/11/16 10:00 113 14 154/90 95 10/11/16 08:30 98.6 10/11/16 05:52 40 10/11/16 05:00 Mechanical Ventilator Intake and Output 10/10/16 10/10/16 10/11/16 15:00 23:00 07:00 Intake Total 550 ml 935 ml Output Total 2380 ml 2300 ml Balance -1830 ml -1365 ml Results Result Diagram: 10/11/16 0445 10/11/16 0455 Results 24 hrs Laboratory Tests Test 10/10/16 11:30 10/10/16 13:30 10/10/16 19:10 10/11/16 00:55 Creatine Kinase 98 Free Thyroxine 1.03 Osmolality 257 L Random Cortisol 20.3 Thyroid Stimulating Hormone (TSH) 3.600 Uric Acid 1.5 L Urine Bacteria MANY Urine Bilirubin NEGATIVE Urine Clarity HAZY Urine Color LT. YELLOW Urine Eosinophils % 0.0 Urine Glucose 0.1% H Urine Hemoglobin NEGATIVE Urine Ketones NEGATIVE Urine Leukocyte Esterase NEGATIVE Urine Microscopic RBC NONE SEEN Urine Microscopic WBC 0-2 Urine Nitrite NEGATIVE Urine Osmolality 482 Urine Random Creatinine 27.88 Urine Random Sodium 124 H Urine Specific [place] 1.015 Urine Total Protein Urine Urobilinogen 2.0 E.U./dL H Urine pH 7.0 Anion Gap 15 13 Blood Urea Nitrogen 11 8 Calcium Level 7.6 L 7.2 L Carbon Dioxide Level 18 L 18 L Chloride Level 92 L 93 L Creatinine 0.25 L 0.20 L Glucose Level 270 #H 218 Lactic Acid Level 1.5 Magnesium Level 1.7 Potassium Level 4.1 5.2 H Sodium Level 121 L 119 *L Troponin I 0.341 *H Test 10/11/16 04:45 10/11/16 04:55 10/11/16 05:00 Basophils # 0.0 Basophils % 0.1 Blood Morphology Comment Eosinophils # 0.0 Eosinophils % 0.0 Hematocrit 33.0 L Hemoglobin 11.3 L Lymphocytes # 0.4 L Lymphocytes % 3.2 L Mean Corpuscular Hemoglobin 32.0 Mean Corpuscular Hemoglobin Concent 34.1 Mean Corpuscular Volume 93.9 Mean Platelet Volume 6.9 L Monocytes # 1.1 H Monocytes % 9.0 Neutrophils # 11.0 H Neutrophils % 87.7 H Nucleated Red Blood Cells # 0.0 Nucleated Red Blood Cells % 0.0 Platelet Count 253 Red Blood Count 3.52 L Red Cell Distribution Width 15.4 H White Blood Count 12.5 H Alanine Aminotransferase (ALT/SGPT) 78 H Albumin 2.7 L Albumin/Globulin Ratio 0.96 Alkaline Phosphatase 194 H Anion Gap 14 Aspartate Amino Transf (AST/SGOT) 68 H Blood Urea Nitrogen 8 Calcium Level 7.4 L Carbon Dioxide Level 18 L Chloride Level 93 L Creatinine 0.21 L Direct Bilirubin 0.00 Folate 19.3 Globulin 2.80 Glucose Level 195 Indirect Bilirubin 0.3 Lactic Acid Level 0.9 Potassium Level 4.0 Sodium Level 121 L Total Bilirubin 0.3 Total Protein 5.5 L Vitamin B12 Level > 1000 H Arterial Blood HCO3 20.7 L Arterial Blood Base Excess -4.0 L Arterial Blood Oxygen Saturation 99.0 H Lior Test ACCEPTAB Arterial Blood Gas Puncture Site Right Radial Arterial Blood Carboxyhemoglobin 0.3 Arterial Blood Date Drawn 10/11/2016 4:55:33 AM Arterial Blood Methemoglobin 0.4 Arterial Blood pCO2 (Temp correct) 36.4 Arterial Blood pH (Temp corrected) 7.373 Arterial Blood pO2 (Temp corrected) 179.1 H Blood Gas A-a O2 Differential 136.5 H Blood Gas Actual Respiration Rate 14 Blood Gas Inspiratory Pressure 20.0 Blood Gas Low PEEP Setting 5.0 Blood Gas Modality VENT - AC Blood Gas Notified Time 10/11/2016 5:13:17 AM Blood Gas Notified Whom MG Blood Gas Respiration Rate 14.0 Blood Gas Specimen Source Blood arterial Blood Gas Temperature 37.0 Blood Gas Tidal Volume 500.0 FiO2 50.0 Oxyhemoglobin Percent 98.3 Total Hemoglobin 12.1 Medications Medications Current Medications Lorazepam (Ativan) 2 mg ONCE ONCE IV Last administered on 10/10/16 11:25; Admin Dose 2 MG; Start 10/10/16 at 11:30; Stop 10/10/16 at 11:31 Labetalol HCl 10 mg 10 mg ONCE ONCE IV Last administered on 10/10/16 12:20; Admin Dose 10 MG; Start 10/10/16 at 12:30; Stop 10/10/16 at 12:31 Sodium Chloride (NS) 1,000 ml @ 75 mls/hr [id number] IV Last administered on 10/11 06:02; Admin Dose 75 MLS/HR; Start 10/10/16 at 13:49 Ondansetron HCl (Zofran Inj) 4 mg Q6H PRN IV NAUSEA AND/OR VOMITING; Start 07/16 at 14:00 Nitroglycerin (Nitroglycerin (Sl Tab) 0.4 Mg) 1 tab Q5M PRN SL CHEST PAIN; Start 10/10/16 at 14:00 Acetaminophen (Tylenol Supp) 650 mg Q4H PRN [place] PAIN LEVEL 1-3 OR FEVER; Start 10/10/16 at 14:00 Morphine Sulfate (morphine) 2 mg Q4H PRN IV PAIN LEVEL 7-10; Start 10/10/16 at 14:00 Lorazepam (Ativan) 1 mg Q2H PRN IV ANXIETY; Start 10/10/16 at 14:00 Docusate Sodium (Colace) 100 mg Q12H PRN PO CONSTIPATION; Start 10/10/16 at 14: 00 Pantoprazole 40 mg 40 mg DAILY@06 IV Last administered on 10/11/16 05:37; Admin Dose 40 MG; Start 10/11/16 at 06:00 Levetiracetam 1000 mg/Sodium Chloride 110 ml @ 440 mls/hr Q12 IVPB Last administered on 10/11/16 10:05; Admin Dose 440 MLS/HR; Start 10/10/16 at 14:00 Sodium Chloride 1,000 ml @ 1,000 mls/hr Q1H ONCE IV Last administered on 17:21; Admin Dose 1,000 MLS/HR; Start 10/10/16 at 14:00; Stop 10/10/16 at 14:59 Levofloxacin/ Dextrose 100 ml @ 100 mls/hr Q24H IVPB Last administered on 10/10 17:22; Admin Dose 100 MLS/HR; Start 10/10/16 at 14:30 Cefepime HCl 50 ml @ 100 mls/hr Q12 IVPB Last administered on 10/11/16 09:38 ; Admin Dose 100 MLS/HR; Start 10/10/16 at 21:00 Vancomycin HCl 1.5 gm/Sodium Chloride 250 ml @ 83.333 mls/ hr ONCE IVPB Last administered on 10/10/16 18:52; Admin Dose 83.333 MLS/HR; Start 10/10/16 at 18: 00; Stop 10/10/16 at 20:00 Vancomycin HCl (Vancocin) 250 ml @ 125 mls/hr Q8H IVPB Last administered on 04:11; Admin Dose 125 MLS/HR; Start 10/11/16 at 04:00 Hydralazine HCl (Apresoline) 10 mg Q6H PRN IV ELEVATED BLOOD PRESSURE Last administered on 10/11/16 01:49; Admin Dose 10 MG; Start 10/10/16 at 19:00 Labetalol HCl 20 mg 20 mg ONCE ONCE IV Last administered on 10/10/16 20:57; Admin Dose 20 MG; Start 10/10/16 at 21:00; Stop 10/10/16 at 21:01 Magnesium Sulfate 50 ml @ 25 mls/hr ONCE ONCE IVPB Last administered on 10:32; Admin Dose 25 MLS/HR; Start 10/11/16 at 08:30; Stop 10/11/16 at 10: 29 Sodium Chloride (Sodium Chloride Iv 3%) 500 ml @ 30 mls/hr [id number] IV ; Start 10/11/16 at 10:30; Stop 10/11/16 at 22:29 ANGI PEOPLES NP Oct 11, 2016 11:25
--- NOTE | 2016-10-11 11:46 | CONS ---
Date/Time of Note Date/Time of Note DATE: 10/11/16 TIME: 11:43 Consult Date/Type/Reason Admit Date/Time Oct 10, 2016 at 13:53 Initial Consult Date 10/10/16 Type of Consultation: Pulm Ordering Provider: MADDY HOPKINS MD Subjective No events overnight. Minimally responsive on mech vent. No evidence of ongoing seizures. Objective Vital Signs Date Time Temp Pulse Resp B/P Pulse Ox O2 Delivery O2 Flow Rate FiO2 10/11/16 10:00 113 14 154/90 95 10/11/16 08:30 98.6 10/11/16 05:52 40 10/11/16 05:00 Mechanical Ventilator Intake and Output 10/10/16 10/10/16 10/11/16 15:00 23:00 07:00 Intake Total 550 ml 935 ml Output Total 2380 ml 2300 ml Balance -1830 ml -1365 ml HEENT: Tracheostomy in place. NECK: Supple, no thyromegaly. CARDIOVASCULAR: Regular rate and rhythm, S1, S2. No murmurs, rubs, or gallops. CHEST: Bilateral rhonchi with occasional wheezing heard. ABDOMEN: Soft, nontender. G-tube site is intact. EXTREMITIES: There is trace bilateral lower extremity edema with muscle wasting. Results/Medications Result Diagram: 10/11/16 0445 10/11/16 0455 Results 24 hrs Laboratory Tests Test 10/10/16 13:30 10/10/16 19:10 10/11/16 00:55 10/11/16 04:45 Urine Bacteria MANY Urine Bilirubin NEGATIVE Urine Clarity HAZY Urine Color LT. YELLOW Urine Eosinophils % 0.0 Urine Glucose 0.1% H Urine Hemoglobin NEGATIVE Urine Ketones NEGATIVE Urine Leukocyte Esterase NEGATIVE Urine Microscopic RBC NONE SEEN Urine Microscopic WBC 0-2 Urine Nitrite NEGATIVE Urine Osmolality 482 Urine Random Creatinine 27.88 Urine Random Sodium 124 H Urine Specific [place] 1.015 Urine Total Protein Urine Urobilinogen 2.0 E.U./dL H Urine pH 7.0 Anion Gap 15 13 Blood Urea Nitrogen 11 8 Calcium Level 7.6 L 7.2 L Carbon Dioxide Level 18 L 18 L Chloride Level 92 L 93 L Creatinine 0.25 L 0.20 L Glucose Level 270 #H 218 Lactic Acid Level 1.5 Magnesium Level 1.7 Potassium Level 4.1 5.2 H Sodium Level 121 L 119 *L Troponin I 0.341 *H Basophils # 0.0 Basophils % 0.1 Blood Morphology Comment Eosinophils # 0.0 Eosinophils % 0.0 Hematocrit 33.0 L Hemoglobin 11.3 L Lymphocytes # 0.4 L Lymphocytes % 3.2 L Mean Corpuscular Hemoglobin 32.0 Mean Corpuscular Hemoglobin Concent 34.1 Mean Corpuscular Volume 93.9 Mean Platelet Volume 6.9 L Monocytes # 1.1 H Monocytes % 9.0 Neutrophils # 11.0 H Neutrophils % 87.7 H Nucleated Red Blood Cells # 0.0 Nucleated Red Blood Cells % 0.0 Platelet Count 253 Red Blood Count 3.52 L Red Cell Distribution Width 15.4 H White Blood Count 12.5 H Test 10/11/16 04:55 10/11/16 05:00 Alanine Aminotransferase (ALT/SGPT) 78 H Albumin 2.7 L Albumin/Globulin Ratio 0.96 Alkaline Phosphatase 194 H Anion Gap 14 Aspartate Amino Transf (AST/SGOT) 68 H Blood Urea Nitrogen 8 Calcium Level 7.4 L Carbon Dioxide Level 18 L Chloride Level 93 L Creatinine 0.21 L Direct Bilirubin 0.00 Folate 19.3 Globulin 2.80 Glucose Level 195 Indirect Bilirubin 0.3 Lactic Acid Level 0.9 Potassium Level 4.0 Sodium Level 121 L Total Bilirubin 0.3 Total Protein 5.5 L Vitamin B12 Level > 1000 H Arterial Blood HCO3 20.7 L Arterial Blood Base Excess -4.0 L Arterial Blood Oxygen Saturation 99.0 H Lior Test ACCEPTAB Arterial Blood Gas Puncture Site Right Radial Arterial Blood Carboxyhemoglobin 0.3 Arterial Blood Date Drawn 10/11/2016 4:55:33 AM Arterial Blood Methemoglobin 0.4 Arterial Blood pCO2 (Temp correct) 36.4 Arterial Blood pH (Temp corrected) 7.373 Arterial Blood pO2 (Temp corrected) 179.1 H Blood Gas A-a O2 Differential 136.5 H Blood Gas Actual Respiration Rate 14 Blood Gas Inspiratory Pressure 20.0 Blood Gas Low PEEP Setting 5.0 Blood Gas Modality VENT - AC Blood Gas Notified Time 10/11/2016 5:13:17 AM Blood Gas Notified Whom MG Blood Gas Respiration Rate 14.0 Blood Gas Specimen Source Blood arterial Blood Gas Temperature 37.0 Blood Gas Tidal Volume 500.0 FiO2 50.0 Oxyhemoglobin Percent 98.3 Total Hemoglobin 12.1 Medications Current Medications Lorazepam (Ativan) 2 mg ONCE ONCE IV Last administered on 10/10/16 11:25; Admin Dose 2 MG; Start 10/10/16 at 11:30; Stop 10/10/16 at 11:31 Labetalol HCl 10 mg 10 mg ONCE ONCE IV Last administered on 10/10/16 12:20; Admin Dose 10 MG; Start 10/10/16 at 12:30; Stop 10/10/16 at 12:31 Sodium Chloride (NS) 1,000 ml @ 75 mls/hr [id number] IV Last administered on 10/11 06:02; Admin Dose 75 MLS/HR; Start 10/10/16 at 13:49 Ondansetron HCl (Zofran Inj) 4 mg Q6H PRN IV NAUSEA AND/OR VOMITING; Start 07/16 at 14:00 Nitroglycerin (Nitroglycerin (Sl Tab) 0.4 Mg) 1 tab Q5M PRN SL CHEST PAIN; Start 10/10/16 at 14:00 Acetaminophen (Tylenol Supp) 650 mg Q4H PRN [place] PAIN LEVEL 1-3 OR FEVER; Start 10/10/16 at 14:00 Morphine Sulfate (morphine) 2 mg Q4H PRN IV PAIN LEVEL 7-10; Start 10/10/16 at 14:00 Lorazepam (Ativan) 1 mg Q2H PRN IV ANXIETY; Start 10/10/16 at 14:00 Docusate Sodium (Colace) 100 mg Q12H PRN PO CONSTIPATION; Start 10/10/16 at 14: 00 Pantoprazole 40 mg 40 mg DAILY@06 IV Last administered on 10/11/16 05:37; Admin Dose 40 MG; Start 10/11/16 at 06:00 Levetiracetam 1000 mg/Sodium Chloride 110 ml @ 440 mls/hr Q12 IVPB Last administered on 10/11/16 10:05; Admin Dose 440 MLS/HR; Start 10/10/16 at 14:00 Sodium Chloride 1,000 ml @ 1,000 mls/hr Q1H ONCE IV Last administered on 17:21; Admin Dose 1,000 MLS/HR; Start 10/10/16 at 14:00; Stop 10/10/16 at 14:59 Levofloxacin/ Dextrose 100 ml @ 100 mls/hr Q24H IVPB Last administered on 10/10 17:22; Admin Dose 100 MLS/HR; Start 10/10/16 at 14:30 Cefepime HCl 50 ml @ 100 mls/hr Q12 IVPB Last administered on 10/11/16 09:38 ; Admin Dose 100 MLS/HR; Start 10/10/16 at 21:00 Vancomycin HCl 1.5 gm/Sodium Chloride 250 ml @ 83.333 mls/ hr ONCE IVPB Last administered on 10/10/16 18:52; Admin Dose 83.333 MLS/HR; Start 10/10/16 at 18: 00; Stop 10/10/16 at 20:00 Vancomycin HCl (Vancocin) 250 ml @ 125 mls/hr Q8H IVPB Last administered on 04:11; Admin Dose 125 MLS/HR; Start 10/11/16 at 04:00 Hydralazine HCl (Apresoline) 10 mg Q6H PRN IV ELEVATED BLOOD PRESSURE Last administered on 10/11/16 01:49; Admin Dose 10 MG; Start 10/10/16 at 19:00 Labetalol HCl 20 mg 20 mg ONCE ONCE IV Last administered on 10/10/16 20:57; Admin Dose 20 MG; Start 10/10/16 at 21:00; Stop 10/10/16 at 21:01 Magnesium Sulfate 50 ml @ 25 mls/hr ONCE ONCE IVPB Last administered on 10:32; Admin Dose 25 MLS/HR; Start 10/11/16 at 08:30; Stop 10/11/16 at 10: 29 Sodium Chloride (Sodium Chloride Iv 3%) 500 ml @ 30 mls/hr [id number] IV ; Start 10/11/16 at 10:30; Stop 10/11/16 at 22:29 Assessment/Plan Additional Assessment/Plan IMPRESSION: 1. Chronic vent-dependent respiratory failure. 2. Sepsis, possibly due to a healthcare-associated pneumonia; however, cannot rule out [employer] shunt infection. 3. Seizures, possibly lowering threshold due to infection as well as hyponatremia. 4. Hyponatremia-query acute 5. Chronic encephalopathy. RECOMMENDATIONS: 1. Ventilator support-->lower FiO2 2. Agree with 3% NaCl; follow Q2 Na+ 3. Follow up cultures. 4. Antibiotics as per ID. 5. Urine sodium and creatinine and urine osmolalities. 6. Am CXR/ABG 7. TSH and cortisol stim test 35 min cc time ELINA BENTLEY MD Oct 11, 2016 11:46
--- NOTE | 2016-10-11 14:40 | CONS ---
DATE OF ADMISSION: 10/10/2016 DATE OF CONSULTATION: 10/11/2016 TYPE OF CONSULTATION: Neurology. Thank you, Dr. Jolley, for your kind referral for evaluation of encephalopathy and seizures. HISTORY OF PRESENT ILLNESS: The patient is a 51-year-old gentleman. The patient is known to me from [facility]. He has a history of a brainstem glioma. I do not have my records from [place]. I saw him about a month ago. At that time, he was also minimally responsive, but if I am recalling correctly, his family was saying that when sodium level is normal he is becoming more responsive. [facility]. His sodium level was 119. He was put on Keppra. No seizures since. Continues to be encephalopathic. LABORATORIES: Today's sodium level is 121, chloride 93, bicarbonate 18, AST 68 , ALT 78, alkaline phosphatase 194, albumin 2.7. Today's WBC count 12.5, hemoglobin 11, hematocrit 33, PT 13, PTT 47. Blood gas today is pH 7.37, pCO2 36, pO2 179. IMAGING: Chest x-ray: Bilateral small pleural effusion. ALLERGIES: NONE. CURRENT MEDICATIONS 1. Protonix. 2. Vancomycin. 3. Cefepime. 4. Labetalol p.r.n. 5. Levofloxacin. 6. Keppra 1000 twice daily. SOCIAL HISTORY: No recent alcohol, tobacco, drug use. FAMILY HISTORY: Noncontributory. PHYSICAL EXAMINATION: VITAL SIGNS: Temperature 98.6, pulse 113, respirations 14, blood pressure 154/ 90. GENERAL: Not in acute distress, lying in bed. HEENT: Normocephalic. Status post tracheostomy. CARDIAC: Normal cardiac sounds, tachycardia. LUNGS: Bilateral rhonchi. ABDOMEN: Soft. G-tube. EXTREMITIES: Trace bilateral lower extremity edema. NEUROLOGIC: Patient is lethargic. Eyes closed. No response to voice, pain or commands. No response to visual threat. Pupils about 2 mm, fixed. No extraocular movements obtained on oculocephalic maneuver. No spontaneous eye movements. Absent left corneal reflexes. Present. right corneal reflex. No gag, flaccid extremities, no movement to pain. Deep tendon reflexes 1+ upper extremities, absent in lower extremities. No definite response to plantar stimulation bilaterally. IMPRESSION: 1. Encephalopathy. 2. Severe hyponatremia status post seizure. None anymore, currently on Keppra. 3. History of brainstem glioma. PLAN: 1. Continue current treatment. 2. We will obtain EEG. 3. Prior medical records from [facility] or [place] could be helpful regarding details of the prior medical history. Dictated By: TOBY KING/PIPER Conf#: [id number] DID#: [id number]
[2016-10-11] MEDS: LEVOFLOXACIN 500MG/D5W (PMX) 100 ML IVPB SCH (14:42)
--- NOTE | 2016-10-11 14:48 | QN ---
Documentation Comment 51 year ol male with history of brainstem glioma (per chart review, H&P per Dr Cleveland Desir 09/25/16) s/p trach and PEG transferred from [place] for hyponatremia and seizure. Patient has had clinical progression of brainstem glioma in spite of chemo and radiation and recently underwent trach and peg placement. He is obtunded after having seized and having been administered ativan. I spoke at length to the patient's who appears to have a good understanding of his condition; although she was not able to identify her 's tumor as a 'brainstem' glioma it is clear the patient has had multiple surgical opinion including those at [place], [facility] and [facility] and he has been uniformly told that the tumor is inoperable. He is DNR. I advised family that given lack of MRI imaging it is unclear to what degree the patient's current poor neurologic status can be attributed to the tumor and how much to secondary effects of the tumor, such as seizure or other toxic/ metabolic encephalopathy. I therefore recommend an MRI of the brain with and without contrast, though I do not expect that we would find the tumor to be ' operable' given the above. JHON CERNA MD Oct 11, 2016 14:47
--- NOTE | 2016-10-11 18:26 | CONS ---
DATE OF ADMISSION: 10/10/2016 DATE OF CONSULTATION: 10/10/2016 CONSULTATION ADDENDUM TYPE OF CONSULTATION: Infectious Disease. HISTORY OF PRESENT ILLNESS: Infectious Disease team saw Mr. Carrion on 10/10/2016. Conclusions were SIRS with versus sepsis associated with leukocytosis, accelerated hypertension, tachycardia and enc ephalopathy. Of note, is the fact that Mr. Carrion is a 51-year-old male with a brain tumor post-dee motherapy with indwelling ventriculoperitoneal shunt. He has a trach, as well as a PEG. He has anjel ateral pneumonia, healthcare-associated, since he was at a SNF, possible aspiration. He has acute o n chronic hypoxic ventilator-dependent respiratory failure, seizure-like activity, hyponatremia with hyperchloremia, normocytic anemia, generalized muscle weakness and debility. His code status is DN R. His antibiotic regimen is vancomycin, cefepime and Levaquin. Blood, urine and sputum were sent for microbiology. Swab of the bilateral nares were done. Avoid carbapenems in the setting of acute seizures. I will dictate my findings to the hospitalist. Dictated By: QUINTIN MCKEON MD, JD/PIPER Conf#: [id number] DID#: [id number]
[2016-10-12] VITALS (39 sets, daily range): BP systolic 111–162; BP diastolic 75–100; PULSE 102–134; RESP 14–33
[2016-10-12] MEDS: SOD CHLORIDE 0.9% 1,000 ML IV SCH ×3 (00:35→20:05)
[2016-10-12] MEDS: VANCOMYCIN 1.5 GM in SOD CHLORIDE 0.9% 250 ML IVPB SCH ×3 (04:02→20:09)
[2016-10-12] MEDS: PANTOPRAZOLE 40 MG INJ IV SCH (05:14)
[2016-10-12 05:16] LABS: AADO2 Arterial 95.5 mmHg (7.0-24.0); Allen Test ACCEPTAB; Arterial Base Excess -0.3 mmol/L (-3.0-3); Arterial COHb 0 % (0.0-3.0); Arterial Fraction of Oxyhgb 98.6 % (93.0-99.0); Arterial HCO3 23.5 mmol/L (22.0-26.0); Arterial MetHb 0.3 % (0.0-1.5); Arterial Total Hemglobin 11.3 g/dl (12.0-18.0); MODE VENT - AC
[2016-10-12 06:55] LABS: BASOPHILS % 0.2 % (0.0-2.0); EOSINOPHILS % 0.3 % (0.0-7.0); HEMATOCRIT 30.5 % (42.0-52.0); HEMOGLOBIN 10.5 g/dl (14.0-18.0); LYMPHOCYTES # 0.4 10^3/ul (0.8-2.9); LYMPHOCYTES % 5.6 % (15.0-51.0); MEAN CORPUSCULAR HEMOGLOBIN 32.1 pg (29.0-33.0); MEAN CORPUSCULAR HGB CONC 34.5 g/dl (32.0-37.0); MEAN CORPUSCULAR VOLUME 93.1 fl (82.0-101.0); MEAN PLATELET VOLUME 6.9 fl (7.4-10.4); MONOCYTE # 0.8 10^3/ul (0.3-0.9); MONOCYTES % 10.6 % (0.0-11.0); NEUTROPHIL # 6.4 10^3/ul (1.6-7.5); NEUTROPHILS % 83.3 % (39.0-77.0); PLATELET COUNT 213 10^3/UL (140-440); RED BLOOD COUNT 3.28 10^6/ul (4.70-6.10); RED CELL DISTRIBUTION WIDTH 15.7 % (11.5-14.5); UNCORRECTED WBC 7.6 10^3/ul (4.8-10.8); WHITE BLOOD COUNT 7.6 10^3/ul (4.8-10.8)
[2016-10-12 06:59] LABS: CONDITION 1; LH ANALYZER COMMENTS 1
[2016-10-12 07:14] LABS: ALBUMIN 2.5 g/dl (3.3-4.9)
[2016-10-12 07:16] LABS: BILIRUBIN,INDIRECT 0.3 mg/dl (0-1.1); BILIRUBIN,TOTAL 0.3 mg/dl (0.2-1.3); CREATININE 0.24 mg/dl (0.61-1.24)
[2016-10-12 07:17] LABS: ALBUMIN/GLOBULIN RATIO 0.96; CALCIUM 7.7 mg/dl (8.4-10.2); TOTAL PROTEIN 5.1 g/dl (6.1-8.1)
[2016-10-12 07:30] LABS: POTASSIUM 2.7 mmol/L (3.5-5.1)
[2016-10-12] MEDS: POTASSIUM CHLORIDE 250 ML IVPB ONE ×2 (07:55→08:15)
[2016-10-12] MEDS ORDERED: POTASSIUM CHLORIDE 20 MEQ POWDER FOR ORAL SOLN PO ONE (08:00)
[2016-10-12] MEDS: LEVETIRACETAM IV 1,000 MG in SOD CHLORIDE 0.9% 100 ML IVPB SCH ×2 (08:03→21:06)
[2016-10-12] MEDS: CEFEPIME 1GM/50 ML (PMX) 50 ML IVPB SCH ×2 (08:03→21:06)
[2016-10-12] MEDS ORDERED: TOLVAPTAN 30 MG TABLET PO ONE (08:30)
[2016-10-12] MEDS ORDERED: TOLVAPTAN 15 MG TABLET PO ONE (08:30)
--- NOTE | 2016-10-12 09:02 | CONS ---
Date/Time of Note Date/Time of Note DATE: 10/12/16 TIME: 08:55 Assessment/Plan Assessment/Plan Additional Assessment/Plan Current ventilator settings are AC of 14, tidal volume 500, PEEP of 5, 30% FiO2. Assessment recommendations; 1. Patient admitted with sepsis. Possibly aspiration pneumonia. 2. Chronic respiratory failure, ventilator dependent. 3. Hyponatremia. Currently improving on normal saline and tolvaptan. 4. Stable seizure disorder. 5. Bibasilar atelectasis as seen on chest x-ray. 6. Status post RAILROAD INSPECTOR shunt placement. Continue current treatment. Potassium was replaced. A tube feeding to be resumed. Consultation Date/Type/Reason Admit Date/Time Oct 10, 2016 at 13:53 Initial Consult Date 10/10/16 Type of Consultation: Pulm Referring Provider: MADDY HOPKINS MD 24 HR Interval Summary Free Text/Dictation Patient condition remains stable. Because of underlying severe encephalopathy patient remains completely unresponsive. No seizure activity noted. General examination; young male, on mechanical ventilation via tracheostomy currently in no distress. Exam/Review of Systems Vital Signs Vitals Vital Signs Date Time Temp Pulse Resp B/P Pulse Ox O2 Delivery O2 Flow Rate FiO2 10/12/16 08:42 109 10/12/16 06:00 25 156/88 99 Mechanical Ventilator 10/12/16 05:27 30 10/12/16 04:00 98.1 Intake and Output 10/11/16 10/11/16 10/12/16 15:00 23:00 07:00 Intake Total 300 ml 885 ml 646.666 ml Output Total 870 ml 1250 ml 910 ml Balance -570 ml -365 ml -263.334 ml Exam HEENT examination; supple neck, tracheostomy in place with clean insertion site. No thyromegaly, no neck masses. No neck bruits. Pupils are midsize and reactive to light bilaterally. Multiple well-healed cranial scars are present. Chest examination; diminished breath sounds lung bases, upper lobes are clear to auscultation. S1-S2 audible, no murmurs. Regular rhythm. Abdomen examination; soft, no organomegaly, G-tube in place, bowel sounds audible. Extremity examination; no peripheral edema. CRANBERRY BOG SUPERVISOR examination; patient remains unresponsive. Results Result Diagram: 10/12/1651910/12/16519 Results 24 hrs Laboratory Tests Test 10/11/16 18:17 10/11/16 19:10 10/11/16 20:55 10/12/16 00:35 Sodium Level 122 L 123 L 124 L Vancomycin Level Trough 9.6 L Test 10/12/16 05:00 10/12/16 05:20 Arterial Blood HCO3 23.5 Arterial Blood Base Excess -0.3 Arterial Blood Oxygen Saturation 98.9 H Lior Test ACCEPTAB Arterial Blood Gas Puncture Site Right Radial Arterial Blood Carboxyhemoglobin 0 Arterial Blood Date Drawn 10/12/2016 4:45:00 AM Arterial Blood Methemoglobin 0.3 Arterial Blood pCO2 (Temp correct) 35.5 Arterial Blood pH (Temp corrected) 7.439 Arterial Blood pO2 (Temp corrected) 148.9 H Blood Gas A-a O2 Differential 95.5 H Blood Gas Actual Respiration Rate 14 Blood Gas Modality VENT - AC Blood Gas Notified Time 10/12/2016 5:15:50 AM Blood Gas Notified Whom MM Blood Gas Respiration Rate 14.0 Blood Gas Specimen Source Blood arterial Blood Gas Temperature 37.0 Blood Gas Tidal Volume 500.0 FiO2 40.0 Oxyhemoglobin Percent 98.6 Total Hemoglobin 11.3 L Alanine Aminotransferase (ALT/SGPT) 62 Albumin 2.5 L Albumin/Globulin Ratio 0.96 Alkaline Phosphatase 167 H Anion Gap 11 Aspartate Amino Transf (AST/SGOT) 41 Basophils # 0.0 Basophils % 0.2 Blood Morphology Comment Blood Urea Nitrogen 3 L Calcium Level 7.7 L Carbon Dioxide Level 24 Chloride Level 95 L Creatinine 0.24 L Direct Bilirubin 0.00 Eosinophils # 0.0 Eosinophils % 0.3 Globulin 2.60 Glucose Level 136 # Hematocrit 30.5 L Hemoglobin 10.5 L Indirect Bilirubin 0.3 Lymphocytes # 0.4 L Lymphocytes % 5.6 L Mean Corpuscular Hemoglobin 32.1 Mean Corpuscular Hemoglobin Concent 34.5 Mean Corpuscular Volume 93.1 Mean Platelet Volume 6.9 L Monocytes # 0.8 Monocytes % 10.6 Neutrophils # 6.4 Neutrophils % 83.3 H Nucleated Red Blood Cells # 0.0 Nucleated Red Blood Cells % 0.0 Platelet Count 213 Potassium Level 2.7 *L Red Blood Count 3.28 L Red Cell Distribution Width 15.7 H Sodium Level 127 L Total Bilirubin 0.3 Total Protein 5.1 L White Blood Count 7.6 # Medications Medications Current Medications Sodium Chloride (NS) 1,000 ml @ 75 mls/hr [id number] IV Last administered on 10/12 00:35; Admin Dose 75 MLS/HR; Start 10/10/16 at 13:49; Status Future hold Ondansetron HCl (Zofran Inj) 4 mg Q6H PRN IV NAUSEA AND/OR VOMITING; Start 07/16 at 14:00 Nitroglycerin (Nitroglycerin (Sl Tab) 0.4 Mg) 1 tab Q5M PRN SL CHEST PAIN; Start 10/10/16 at 14:00 Acetaminophen (Tylenol Supp) 650 mg Q4H PRN [place] PAIN LEVEL 1-3 OR FEVER; Start 10/10/16 at 14:00 Morphine Sulfate (morphine) 2 mg Q4H PRN IV PAIN LEVEL 7-10; Start 10/10/16 at 14:00 Lorazepam (Ativan) 1 mg Q2H PRN IV ANXIETY; Start 10/10/16 at 14:00 Docusate Sodium (Colace) 100 mg Q12H PRN PO CONSTIPATION; Start 10/10/16 at 14: 00 Pantoprazole 40 mg 40 mg DAILY@06 IV Last administered on 10/12/16 05:14; Admin Dose 40 MG; Start 10/11/16 at 06:00 Levetiracetam 1000 mg/Sodium Chloride 110 ml @ 440 mls/hr Q12 IVPB Last administered on 10/12/16 08:03; Admin Dose 440 MLS/HR; Start 10/10/16 at 14:00 Levofloxacin/ Dextrose 100 ml @ 100 mls/hr Q24H IVPB Last administered on 10/11 14:42; Admin Dose 100 MLS/HR; Start 10/10/16 at 14:30 Cefepime HCl (Maxipime 1gm/50 ml (Pmx)) 50 ml @ 100 mls/hr Q12 IVPB Last administered on 10/12/16 08:03; Admin Dose 100 MLS/HR; Start 10/10/16 at 21:00 Hydralazine HCl 10 mg 10 mg Q6H PRN IV ELEVATED BLOOD PRESSURE Last administered on 10/11/16 01:49; Admin Dose 10 MG; Start 10/10/16 at 19:00 Vancomycin HCl 1.5 gm/Sodium Chloride 250 ml @ 83.333 mls/ hr Q8H IVPB Last administered on 10/12/16 04:02; Admin Dose 83.333 MLS/HR; Start 10/12/16 at 04: 00 Potassium Chloride (KCl 40 MEQ/250 ML NS) 250 ml @ 62.5 mls/hr ONCE ONCE IVPB Last administered on 10/12/16 08:15; Admin Dose 62.5 MLS/HR; Start 10/12/16 at 08:00; Stop 10/12/16 at 11:59 JUANA DE LEÓN Oct 12, 2016 09:02
[2016-10-12 09:17] LABS: MAGNESIUM 1.9 mg/dl (1.7-2.5); PHOSPHORUS 2.4 mg/dl (2.5-4.9)
--- NOTE | 2016-10-12 10:06 | RADRPT ---
PROCEDURE: MR Brain without and with contrast. CLINICAL INDICATION: Brainstem glioma TECHNIQUE: A high resolution MRI of the brain was performed utilizing the following sequences: Sag ittal and axial T1 weighted, axial T2 weighted, axial FLAIR, coronal GRE, and axial diffusion weight ed with ADC mapping. Images were reviewed high-resolution PACS workstation. Additional axial and co cierra post contrast images were obtained. 10cc of magnevist was administered intravenously without r eported complication. COMPARISON: Correlation head CT yesterday FINDINGS: Expansile T2 hyperintensity is seen involving the medial aspect of the bilateral cerebellar hemisphe res, bilateral cerebellar peduncles, medulla, deb and central midbrain. There is also expansile T2 hyperintensity of the bilateral thalami, bilateral caudate and left splenium. There is scattered p arenchymal curvilinear enhancement most notably seen in at the right caudate/periventricular white m atter, ependymal margin of the left frontal horn of the lateral ventricle, right cerebellar hemisphe re, cerebellar vermis and left middle cerebellar peduncle. There is diffuse bilateral cerebral convexity dural enhancement and dural thickening. A right trans frontal ventriculostomy catheter is identified with tip in the frontal horn of the right lateral ve ntricle. An old left trans frontal ventriculostomy tract is seen. Bilateral craniotomy changes are identified. There is encephalomalacia and gliosis in the bilateral frontal lobes. Confluent signa l change in the periventricular cerebral and cerebellar white matter are also seen. No acute parenchymal hemorrhage, midline shift or recent infarct.No suspicious parenchymal hypointen se signal abnormalities are seen on the GRE images to suggest the presence of blood degradation prod ucts. The ventricles are stable size. Normal flow voids are visible in the proximal intracranial arteries suggesting their patency. Partially opacified paranasal sinuses with opacified nasal cavity and bilateral mastoid and middle e ar cavities. IMPRESSION: Infiltrative, expansile T2 hyperintensity involving the bilateral cerebellum, brainstem, bilateral c audate, bilateral thalami and left splenium is most compatible with the provided history of a glioma . There are superimposed, scattered areas of curvilinear enhancement most notably at the right caud ate, ependymal margin of the left frontal horn of the lateral ventricle, right cerebellar hemisphere , cerebellar vermis and left middle cerebellar peduncle. These areas of enhancement could represent areas of higher grade tumor. Additional, extensive T2 signal changes in the cerebral and cerebellar white matter could be due to other sites of nonenhancing tumor or post-treatment changes. Diffuse bilateral cerebral convexity dural enhancement and dural thickening. Differential considerat ions include postoperative change, intracranial hypotension, meningitis, or neoplastic involvement. Correlation to prior imaging and CSF studies would be helpful. Stable position of right transfrontal shunt with stable ventricle size. No evidence of recent infarct. RPTAT: AA .Demario Taylor MD, MD Date Time Electronically viewed and signed by .Demario Taylor MD, MD on 10/12/2016 10:05 .T/
--- NOTE | 2016-10-12 11:18 | RADRPT ---
PROCEDURE: XR Chest. CLINICAL INDICATION: Respiratory failure TECHNIQUE: An AP view of the chest was obtained. COMPARISON: Chest x-ray dated 10/11/2016 FINDINGS: A tracheostomy tube is in place. There is tubing over the right neck and chest wall, which may refl ect a ventriculoperitoneal shunt tubing, the distal portion is not well visualized. There are bibasilar interstitial opacities with small bilateral pleural effusions. No pneumothorax is seen. The cardiomediastinal silhouette is mildly enlarged . The osseous structures demonstrat e senescent changes. IMPRESSION: 1. Small bilateral pleural effusions with bibasilar interstitial edema versus pneumonia. Lung aera tion is mildly improved when compared to the prior examination. 2. Mild cardiomegaly. 3. Tubes and lines, as described above. RPTAT: HH .Ana Lilia Kirk MD, Date Time Electronically viewed and signed by .Ana Lilia Kirk MD, on 10/12/2016 11:18 .G/
--- NOTE | 2016-10-12 11:32 | PN ---
Date/Time of Note Date/Time of Note DATE: 10/12/16 TIME: 11:22 Assessment/Plan VTE Prophylaxis VTE Prophylaxis Intervention: SCD's Lines/Catheters IV C[facility]ter Type (from [facility]): Peripheral IV Urinary Cath still in place: Yes Reason Cath still needed: urinary retention Assessment/Plan Chief Complaint/Hosp Course Assessment/Plan: 51 yo male with a past medical history of CVA, brainstem glioma with trach/peg status, who came via ambulance for seizure like activity from residential facility. 1. Encephalopathy - neurologic type - appears to be chronic? - Hx of brainstem glioma and PRINTED FORMS PROOFREADER shunt. + seizures and severe hyponatremia as well. - monitor changes, f/o NSS and Neuro rec's. 2. Seizures - thought to be 2/2 to severe hyponatremia - slowly improving but still present. - f/u consult neurology rec's, EEG being considered. - continue IV keppra, seizure precautions, prn ativan for overriding seizures , - Vit B12, folate levels 3. Severe hyponatremia - SIADH vs other etiologies - pt has been receiving tolvaptan and IV NS - slightly improved this AM (122 -> 127) - monitor Na+ levels Q8 hrs, renal rec's - continue NS IVF. 4. Sepsis 2/2 to bilateral pneumonia - HCAP - on cefepime/vanc- appreciate ID 5. Vent dependent respiratory failure - appreciate pulm, continue with vent - wean as tolerated 6. Anemia - chronic disease - monitor H/H 7. PRINTED FORMS PROOFREADER shunt - monitor any acute changes 8. Transaminitis - monitor - 2/2 to sepsis 9. CVA - precautions - hold aspirin 10. GI ppx - protonix 11. DVT ppx - scds as per clinical course. monitor labs Critical care time spent with pt care today = 45 min. Problems: Subjective 24 Hr Interval Summary Free Text/Dictation Still occasional seizures, on Keppra. Received tolvaptan dose again this AM. Seen by renal, ID, Neuro, and NSS teams in last 24 hrs. Exam/Review of Systems Vital Signs Vitals Vital Signs Date Time Temp Pulse Resp B/P Pulse Ox O2 Delivery O2 Flow Rate FiO2 10/12/16 10:00 108 16 159/90 97 Mechanical Ventilator 10/12/16 08:00 98.2 10/12/16 05:27 30 Intake and Output 10/11/16 10/11/16 10/12/16 14:59 22:59 06:59 Intake Total 300 ml 855 ml 676.666 ml Output Total 770 ml 1180 ml 1080 ml Balance -470 ml -325 ml -403.334 ml Exam Gen Octavia: obtunded HEENT: NC/AT, PERRLA, trach NECK: trached, no secretions noted THORAX: symmetrical, no obvious deformities CV: S1S2, RRR, no M/G/R Lungs: bilateral rhonchi with end expiratory wheezing noted, no crackles Abd: soft, NT/ND, +BS, no rebound, no guarding, neg HSM, peg site C/D/I EXT:trace bilateral lower extremity edema, no ecchymosis, no clubbing, muscle wasting noted Neuro: obtunded Psych: cannot asses Skin: decreased skin turgor Results Result Diagram: 10/12/1651910/12/1620 Results 24 hrs Laboratory Tests Test 10/11/16 18:17 10/11/16 19:10 10/11/16 20:55 10/12/16 00:35 Sodium Level 122 L 123 L 124 L Vancomycin Level Trough 9.6 L Test 10/12/16 05:00 10/12/16 05:20 Arterial Blood HCO3 23.5 Arterial Blood Base Excess -0.3 Arterial Blood Oxygen Saturation 98.9 H Lior Test ACCEPTAB Arterial Blood Gas Puncture Site Right Radial Arterial Blood Carboxyhemoglobin 0 Arterial Blood Date Drawn 10/12/2016 4:45:00 AM Arterial Blood Methemoglobin 0.3 Arterial Blood pCO2 (Temp correct) 35.5 Arterial Blood pH (Temp corrected) 7.439 Arterial Blood pO2 (Temp corrected) 148.9 H Blood Gas A-a O2 Differential 95.5 H Blood Gas Actual Respiration Rate 14 Blood Gas Modality VENT - AC Blood Gas Notified Time 10/12/2016 5:15:50 AM Blood Gas Notified Whom MM Blood Gas Respiration Rate 14.0 Blood Gas Specimen Source Blood arterial Blood Gas Temperature 37.0 Blood Gas Tidal Volume 500.0 FiO2 40.0 Oxyhemoglobin Percent 98.6 Total Hemoglobin 11.3 L Alanine Aminotransferase (ALT/SGPT) 62 Albumin 2.5 L Albumin/Globulin Ratio 0.96 Alkaline Phosphatase 167 H Anion Gap 11 Aspartate Amino Transf (AST/SGOT) 41 Basophils # 0.0 Basophils % 0.2 Blood Morphology Comment Blood Urea Nitrogen 3 L Calcium Level 7.7 L Carbon Dioxide Level 24 Chloride Level 95 L Creatinine 0.24 L Direct Bilirubin 0.00 Eosinophils # 0.0 Eosinophils % 0.3 Globulin 2.60 Glucose Level 136 # Hematocrit 30.5 L Hemoglobin 10.5 L Indirect Bilirubin 0.3 Lymphocytes # 0.4 L Lymphocytes % 5.6 L Magnesium Level 1.9 Mean Corpuscular Hemoglobin 32.1 Mean Corpuscular Hemoglobin Concent 34.5 Mean Corpuscular Volume 93.1 Mean Platelet Volume 6.9 L Monocytes # 0.8 Monocytes % 10.6 Neutrophils # 6.4 Neutrophils % 83.3 H Nucleated Red Blood Cells # 0.0 Nucleated Red Blood Cells % 0.0 Phosphorus Level 2.4 L Platelet Count 213 Potassium Level 2.7 *L Red Blood Count 3.28 L Red Cell Distribution Width 15.7 H Sodium Level 127 L Total Bilirubin 0.3 Total Protein 5.1 L White Blood Count 7.6 # Medications Medications Current Medications Sodium Chloride (NS) 1,000 ml @ 75 mls/hr [id number] IV Last administered on 10/12 00:35; Admin Dose 75 MLS/HR; Start 10/10/16 at 13:49; Status Future hold Ondansetron HCl (Zofran Inj) 4 mg Q6H PRN IV NAUSEA AND/OR VOMITING; Start 07/16 at 14:00 Nitroglycerin (Nitroglycerin (Sl Tab) 0.4 Mg) 1 tab Q5M PRN SL CHEST PAIN; Start 10/10/16 at 14:00 Acetaminophen (Tylenol Supp) 650 mg Q4H PRN [place] PAIN LEVEL 1-3 OR FEVER; Start 10/10/16 at 14:00 Morphine Sulfate (morphine) 2 mg Q4H PRN IV PAIN LEVEL 7-10; Start 10/10/16 at 14:00 Lorazepam (Ativan) 1 mg Q2H PRN IV ANXIETY; Start 10/10/16 at 14:00 Docusate Sodium (Colace) 100 mg Q12H PRN PO CONSTIPATION; Start 10/10/16 at 14: 00 Pantoprazole 40 mg 40 mg DAILY@06 IV Last administered on 10/12/16 05:14; Admin Dose 40 MG; Start 10/11/16 at 06:00 Levetiracetam 1000 mg/Sodium Chloride 110 ml @ 440 mls/hr Q12 IVPB Last administered on 10/12/16 08:03; Admin Dose 440 MLS/HR; Start 10/10/16 at 14:00 Cefepime HCl (Maxipime 1gm/50 ml (Pmx)) 50 ml @ 100 mls/hr Q12 IVPB Last administered on 10/12/16 08:03; Admin Dose 100 MLS/HR; Start 10/10/16 at 21:00 Hydralazine HCl 10 mg 10 mg Q6H PRN IV ELEVATED BLOOD PRESSURE Last administered on 10/11/16 01:49; Admin Dose 10 MG; Start 10/10/16 at 19:00 Vancomycin HCl 1.5 gm/Sodium Chloride 250 ml @ 83.333 mls/ hr Q8H IVPB Last administered on 10/12/16 04:02; Admin Dose 83.333 MLS/HR; Start 10/12/16 at 04: 00 Potassium Chloride (KCl 40 MEQ/250 ML NS) 250 ml @ 62.5 mls/hr ONCE ONCE IVPB Last administered on 10/12/16 08:15; Admin Dose 62.5 MLS/HR; Start 10/12/16 at 08:00; Stop 10/12/16 at 11:59 Miscellaneous Information 1 ONCE ONCE XX ; Start 10/13/16 at 03:00; Stop at 03:01 Potassium Phosphate/Sodium Chloride (K Phos (Meq)/NS) 254.5455 ml @ 63.636 m... ONCE IVPB ; Start 10/12/16 at 13:00; Stop 10/12/16 at 16:59 FAUSTO CHOU Oct 12, 2016 11:32
--- NOTE | 2016-10-12 12:41 | PN ---
DATE: 10/12/2016 SUBJECTIVE: No acute changes overnight per report. The patient is lying comfortably in bed, nonver bal, noncommunicative, afebrile. LABORATORIES: WBC today 7.6, platelets 213, neutrophils 83.3. BUN 3, creatinine 0.24. MICROBIOLOGY: Blood cultures have been negative. Urine culture growing enterococcus species suscep tible to all antibiotics. DIAGNOSTICS: Chest x-ray revealed atelectasis or pneumonia at the lung bases, unchanged. INDWELLINGS: Trach, PEG, Knapp, DENTAL ASSOCIATE shunt. ANTIMICROBIALS: The patient is on IV vancomycin and Levaquin. PHYSICAL EXAMINATION: GENERAL: Chronically ill-appearing, middle-aged man who is nonverbal, non-communicative an d lying comfortably in bed. HEENT: Head atraumatic, normocephalic. Sclerae anicteric. Buccal mucosa dry. NECK: Supple. Tracheostomy present. CHEST: Rise symmetrical. Breath sounds diminished to bases. HEART: S1, S2. ABDOMEN: Soft, bowel tones present. EXTREMITIES: Without cyanosis. ASSESSMENT: 1. Systemic inflammatory response syndrome. 2. Enterococcal urinary tract infection. 3. Pneumonia. 4. Chronic encephalopathy status post DENTAL ASSOCIATE shunt. 5. Brain steam glioma status post chemotherapy, neurosurgeon on case. 6. Seizure disorder. PLAN: The patient remains stable, followed by multiple consultants. We will continue him on curren t antimicrobials. Dictated By: RSOANGELA CARDONA ROOM SERVICE MANAGER for QUINTIN MCKEON MD NI/NTS Conf#: [id number] DID#: [id number]
[2016-10-12] MEDS ORDERED: POTASSIUM PHOSPHATE 20 MEQ in SOD CHLORIDE 0.9% 250 ML IVPB SCH (13:00)
--- NOTE | 2016-10-12 13:37 | CONS ---
Date/Time of Note Date/Time of Note DATE: 10/12/16 TIME: 13:35 Assessment/Plan Assessment/Plan Additional Assessment/Plan 1. Severe hypernatremia with a sodium of 119, possibly acute on chronic hyponatremia versus acute severe hyponatremia. 2. Seizures secondary to severe hyponatremia. 3. Sepsis secondary to bilateral pneumonia. 4. Ventilator-dependent respiratory failure, status post tracheostomy, on vent. 5. History of a previous brain tumor, had surgery. Currently, status post ventriculoperitoneal shunt in place. 6. History of a previous cerebellar cerebrovascular accident. PLAN: s/p 3 % saline yesterday, did not improve much, today Tolvaptan 30gram PO x 1 given, Now Na 132 will monitor Na daily IV abx as per ID vent care as per pulmonary will continue to follow up Consultation Date/Type/Reason Admit Date/Time Oct 10, 2016 at 13:53 Initial Consult Date 10/10/16 Type of Consultation: NEPHROLOGY Referring Provider: MADDY HOPKINS MD 24 HR Interval Summary Free Text/Dictation s/p 3 % saline yesterday, did not improve much, today Tolvaptan 30gram PO x 1 given, Now Na 132 Exam/Review of Systems Vital Signs Vitals Vital Signs Date Time Temp Pulse Resp B/P Pulse Ox O2 Delivery O2 Flow Rate FiO2 10/12/16 12:52 102 10/12/16 11:10 14 100 30 10/12/16 10:00 159/90 Mechanical Ventilator 10/12/16 08:00 98.2 Intake and Output 10/11/16 10/11/16 10/12/16 15:00 23:00 07:00 Intake Total 300 ml 885 ml 646.666 ml Output Total 870 ml 1250 ml 910 ml Balance -570 ml -365 ml -263.334 ml Exam GENERAL: The patient is currently on a ventilator, status post tracheostomy. HEENT: Tracheostomy site is clear. LUNGS: Bilateral coarse breath sounds with bilateral basilar rales present and lower lobe rhonchi present. HEART: S1, S2, tachycardia, no murmur. ABDOMEN: Soft. G-tube in place. EXTREMITIES: No clubbing, cyanosis, or edema. The patient is very debilitated. PSYCHIATRIC: Not able to assess. NEUROLOGICAL: Not able to assess. SKIN: Not able to assess because the patient is currently with multiple drips. Results Result Diagram: 10/12/16 0520 10/12/16 1210 Results 24 hrs Laboratory Tests Test 10/11/16 18:17 10/11/16 19:10 10/11/16 20:55 10/12/16 00:35 Sodium Level 122 L 123 L 124 L Vancomycin Level Trough 9.6 L Test 10/12/16 05:00 10/12/16 05:20 10/12/16 12:10 Arterial Blood HCO3 23.5 Arterial Blood Base Excess -0.3 Arterial Blood Oxygen Saturation 98.9 H Lior Test ACCEPTAB Arterial Blood Gas Puncture Site Right Radial Arterial Blood Carboxyhemoglobin 0 Arterial Blood Date Drawn 10/12/2016 4:45:00 AM Arterial Blood Methemoglobin 0.3 Arterial Blood pCO2 (Temp correct) 35.5 Arterial Blood pH (Temp corrected) 7.439 Arterial Blood pO2 (Temp corrected) 148.9 H Blood Gas A-a O2 Differential 95.5 H Blood Gas Actual Respiration Rate 14 Blood Gas Modality VENT - AC Blood Gas Notified Time 10/12/2016 5:15:50 AM Blood Gas Notified Whom MM Blood Gas Respiration Rate 14.0 Blood Gas Specimen Source Blood arterial Blood Gas Temperature 37.0 Blood Gas Tidal Volume 500.0 FiO2 40.0 Oxyhemoglobin Percent 98.6 Total Hemoglobin 11.3 L Alanine Aminotransferase (ALT/SGPT) 62 Albumin 2.5 L Albumin/Globulin Ratio 0.96 Alkaline Phosphatase 167 H Anion Gap 11 Aspartate Amino Transf (AST/SGOT) 41 Basophils # 0.0 Basophils % 0.2 Blood Morphology Comment Blood Urea Nitrogen 3 L Calcium Level 7.7 L Carbon Dioxide Level 24 Chloride Level 95 L Creatinine 0.24 L Direct Bilirubin 0.00 Eosinophils # 0.0 Eosinophils % 0.3 Globulin 2.60 Glucose Level 136 # Hematocrit 30.5 L Hemoglobin 10.5 L Indirect Bilirubin 0.3 Lymphocytes # 0.4 L Lymphocytes % 5.6 L Magnesium Level 1.9 Mean Corpuscular Hemoglobin 32.1 Mean Corpuscular Hemoglobin Concent 34.5 Mean Corpuscular Volume 93.1 Mean Platelet Volume 6.9 L Monocytes # 0.8 Monocytes % 10.6 Neutrophils # 6.4 Neutrophils % 83.3 H Nucleated Red Blood Cells # 0.0 Nucleated Red Blood Cells % 0.0 Phosphorus Level 2.4 L Platelet Count 213 Potassium Level 2.7 *L Red Blood Count 3.28 L Red Cell Distribution Width 15.7 H Sodium Level 127 L 132 L Total Bilirubin 0.3 Total Protein 5.1 L White Blood Count 7.6 # Medications Medications Current Medications Sodium Chloride (NS) 1,000 ml @ 75 mls/hr [id number] IV Last administered on 10/12 00:35; Admin Dose 75 MLS/HR; Start 10/10/16 at 13:49; Status Future hold Ondansetron HCl (Zofran Inj) 4 mg Q6H PRN IV NAUSEA AND/OR VOMITING; Start 07/16 at 14:00 Nitroglycerin (Nitroglycerin (Sl Tab) 0.4 Mg) 1 tab Q5M PRN SL CHEST PAIN; Start 10/10/16 at 14:00 Acetaminophen (Tylenol Supp) 650 mg Q4H PRN [place] PAIN LEVEL 1-3 OR FEVER; Start 10/10/16 at 14:00 Morphine Sulfate (morphine) 2 mg Q4H PRN IV PAIN LEVEL 7-10; Start 10/10/16 at 14:00 Lorazepam (Ativan) 1 mg Q2H PRN IV ANXIETY; Start 10/10/16 at 14:00 Docusate Sodium (Colace) 100 mg Q12H PRN PO CONSTIPATION; Start 10/10/16 at 14: 00 Pantoprazole 40 mg 40 mg DAILY@06 IV Last administered on 10/12/16 05:14; Admin Dose 40 MG; Start 10/11/16 at 06:00 Levetiracetam 1000 mg/Sodium Chloride 110 ml @ 440 mls/hr Q12 IVPB Last administered on 10/12/16 08:03; Admin Dose 440 MLS/HR; Start 10/10/16 at 14:00 Cefepime HCl (Maxipime 1gm/50 ml (Pmx)) 50 ml @ 100 mls/hr Q12 IVPB Last administered on 10/12/16 08:03; Admin Dose 100 MLS/HR; Start 10/10/16 at 21:00 Hydralazine HCl 10 mg 10 mg Q6H PRN IV ELEVATED BLOOD PRESSURE Last administered on 10/11/16 01:49; Admin Dose 10 MG; Start 10/10/16 at 19:00 Vancomycin HCl/ Sodium Chloride (Vancocin/NS) 250 ml @ 83.333 mls/ hr Q8H IVPB Last administered on 10/12/16t 04:02; Admin Dose 83.333 MLS/HR; Start at 04:00 Miscellaneous Information 1 ONCE ONCE XX ; Start 10/13/16 at 03:00; Stop at 03:01 Potassium Phosphate/Sodium Chloride (K Phos (Meq)/NS) 254.5455 ml @ 63.636 m... ONCE IVPB ; Start 10/12/16 at 13:00; Stop 10/12/16 at 16:59 LISSA PARK MD Oct 12, 2016 13:37
--- NOTE | 2016-10-12 14:10 | CONS ---
DATE OF ADMISSION: 10/10/2016 DATE OF CONSULTATION: 10/10/2016 HISTORY OF PRESENT ILLNESS: This is a 51-year-old gentleman I examined in the emergency room on 06/2017. Therefore, this post-dated note. This is an extremely ill 51-year-old gentleman was sent in from a subacute facility via ambulance for seizure activity. The patient's , who speaks very little Norwegian, did convey to me that the patient has a past medical history of CVA and has had a P EG and trach, but only for a short period of time. He was recently admitted to another outside hosp ital for fluid and electrolyte abnormality and was sent back to subacute facility with aggressive in tervention, but apparently has had some ongoing inability to hold down NG tube intake, which he says he was having some vomiting for a period of time and then developed what sounds like a generalized seizure and was sent to the emergency room where she was found to be profoundly hyponatremic. Chest x-ray is consistent with bilateral pneumonitis. Patient has been admitted to the intensive care un it from the emergency room. At that time, I had spoken to patient's and at the time that hospi talist, Dr. Juarez Jolley, arrived, she had left. There are no past records that are available. MEDICATIONS: Please refer to reconciliation sheets. ALLERGIES: NO KNOWN DRUG ALLERGIES. MAJOR MEDICAL PROBLEMS IN THE PAST: Primarily as per history of present illness and once again we h ave an incomplete database. All we know at this time is that the patient was in a subacute unit and has history of strokes and has been PEG'd and trached for greater than a 6-month period of time. FAMILY HISTORY: Unknown. REVIEW OF SYSTEMS: Cannot be obtained. PHYSICAL EXAMINATION: GENERAL: At the time I examined this gentleman, showed a well-nourished, well-developed gentleman w ho has a trach and clean site without discharge or erythema or purulent material. HEENT: Normocephalic and atraumatic. Anicteric, acyanotic. CHEST: Bilateral distant breath sounds throughout both lung soares. COR: S1, S2, without S3, S4, murmur, gallop, rub. Normal rate, normal rhythm. ABDOMEN: Grossly benign. LABORATORIES: Have been reviewed. ASSESSMENT AND PLAN: From a palliative care standpoint, the patient is gravely ill, has been admitt ed to the intensive care unit with profound fluid and electrolyte abnormalities, hyponatremia, respi ratory failure, bilateral pneumonitis, and history of seizure disorders. Dr. Jolley has admitted h im. He will be seen by neurology, ID, pulmonary medicine and have aggressive intervention. I will schedule a family conference as soon as possible and address patient's code status. My initial impr ession is that was in denial when I spoke with her and I will gingerly open up the conversation on ongoing level of care as the days go by. Dictated By: MARY VILLALPANDO MD, LP/NTS Conf#: [id number] DID#: [id number]
[2016-10-12] MEDS: hydrALAzine 20 MG INJ IV PRN (19:03)
--- NOTE | 2016-10-12 21:20 | NEURPT ---
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 DESCRIPTION OF PROCEDURE: EEG was recorded digitally. [id number] and gfvvk-[id number] montages wer e recorded and reviewed. All impedances were measured and recorded. Cap electrodes were placed in accordance with International 10-20 system of electrode placement. FINDINGS: Symmetrically distributed background activity of low to medium amplitude ranging in frequ ency between 4 to 6 cycles per second was seen. This activity intermixes with left frontal central sharp wave, at times rhythmical and at times not. When rhythmical, 1 to 2 per second. IMPRESSION: Abnormal study secondary to background slowing which could reflect presence of encephal opathy as well as presence of left frontal central sharps which may reflect presence of periodic lat eralized epileptiform discharges and clearly, given the patient's history, are epileptogenic. Woody nue seizure coverage with antiepileptic medicines. No generalized ongoing seizures are seen. Dictated By: TOBY KING/PIPER Conf#: [id number] DID#: [id number]
[2016-10-12] MEDS ORDERED: SOD CHLORIDE 0.9% 1,000 ML IV ONE (23:00)
[2016-10-12] MEDS ORDERED: SOD CHLORIDE 0.9% 1,000 ML IV SCH (23:00)
[2016-10-13] VITALS (36 sets, daily range): BP systolic 87–156; BP diastolic 55–95; PULSE 109–136; RESP 9–22
[2016-10-13] MEDS ORDERED: SOD CHLORIDE 0.45% 1,000 ML IV SCH
[2016-10-13] MEDS: LORAZEPAM 2 MG INJ IV PRN (04:03)
[2016-10-13] MEDS: PANTOPRAZOLE 40 MG INJ IV SCH (05:06)
[2016-10-13 07:12] LABS: ALBUMIN 2.7 g/dl (3.3-4.9); BASOPHILS % 0.1 % (0.0-2.0); EOSINOPHILS % 0.4 % (0.0-7.0); HEMATOCRIT 33.4 % (42.0-52.0); HEMOGLOBIN 11.4 g/dl (14.0-18.0); LYMPHOCYTES # 0.4 10^3/ul (0.8-2.9); LYMPHOCYTES % 3.5 % (15.0-51.0); MEAN CORPUSCULAR HEMOGLOBIN 32.3 pg (29.0-33.0); MEAN CORPUSCULAR HGB CONC 34.1 g/dl (32.0-37.0); MEAN CORPUSCULAR VOLUME 94.6 fl (82.0-101.0); MEAN PLATELET VOLUME 6.3 fl (7.4-10.4); MONOCYTE # 1.2 10^3/ul (0.3-0.9); MONOCYTES % 10.6 % (0.0-11.0); NEUTROPHIL # 9.8 10^3/ul (1.6-7.5); NEUTROPHILS % 85.4 % (39.0-77.0); PLATELET COUNT 232 10^3/UL (140-440); RED BLOOD COUNT 3.53 10^6/ul (4.70-6.10); RED CELL DISTRIBUTION WIDTH 15.9 % (11.5-14.5); UNCORRECTED WBC 11.4 10^3/ul (4.8-10.8); WHITE BLOOD COUNT 11.4 10^3/ul (4.8-10.8)
[2016-10-13 07:13] LABS: POTASSIUM 3.2 mmol/L (3.5-5.1)
[2016-10-13 07:15] LABS: ALBUMIN/GLOBULIN RATIO 0.96; BILIRUBIN,INDIRECT 0.3 mg/dl (0-1.1); BILIRUBIN,TOTAL 0.3 mg/dl (0.2-1.3); CREATININE 0.28 mg/dl (0.61-1.24); TOTAL PROTEIN 5.5 g/dl (6.1-8.1)
[2016-10-13 07:16] LABS: CALCIUM 8.7 mg/dl (8.4-10.2)
[2016-10-13 07:19] LABS: MAGNESIUM 2.2 mg/dl (1.7-2.5); PHOSPHORUS 2.3 mg/dl (2.5-4.9)
[2016-10-13 07:35] LABS: CONDITION 1; LH ANALYZER COMMENTS 1
[2016-10-13] MEDS ORDERED: DEXTROSE 5% 1,000 ML IV SCH (08:00)
[2016-10-13] MEDS ORDERED: DESMOPRESSIN 0.1 MG TAB PEG SCH (08:00)
[2016-10-13] MEDS ORDERED: POTASSIUM PHOSPHATE 15 MEQ in SOD CHLORIDE 0.9% 250 ML IVPB ONE (09:00)
[2016-10-13] MEDS: VANCOMYCIN 1 GM in NS 250 ML IVPB SCH ×3 (09:14→23:59)
[2016-10-13] MEDS: D5W + KCL 20 MEQ 1,000 ML IV SCH ×2 (09:14→18:00)
[2016-10-13] MEDS: LEVETIRACETAM IV 1,000 MG in SOD CHLORIDE 0.9% 100 ML IVPB SCH ×2 (09:15→20:21)
[2016-10-13] MEDS: CEFEPIME 1GM/50 ML (PMX) 50 ML IVPB SCH ×2 (09:15→20:23)
--- NOTE | 2016-10-13 09:31 | CONS ---
Date/Time of Note Date/Time of Note DATE: 10/13/16 TIME: 09:28 Assessment/Plan Assessment/Plan Additional Assessment/Plan Assessment and recommendations; 1. Chronic respiratory failure due to severe anoxic enthesopathy status post cranial surgery. 2. Sepsis. 3. 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 4. Stable seizure disorder . 5. Hypernatremia. Continue current treatment for now. Increase free water from 100 mL's every 6 hours to 250 ML every 6 hours. Continue current antibiotics. Will obtain a follow-up chest x-ray. Consultation Date/Type/Reason Admit Date/Time Oct 10, 2016 at 13:53 Initial Consult Date 10/10/16 Type of Consultation: Pulmonary/critical care Referring Provider: MADDY HOPKINS MD 24 HR Interval Summary Free Text/Dictation Patient condition remains stable. Remains completely unresponsive to any stimuli. Has remained hemodynamically stable. General examination; young male, on ventilator via tracheostomy currently in no distress. Exam/Review of Systems Vital Signs Vitals Vital Signs Date Time Temp Pulse Resp B/P Pulse Ox O2 Delivery O2 Flow Rate FiO2 10/13/16 06:00 126 14 133/89 98 Mechanical Ventilator 10/13/16 05:39 40 10/13/16 04:00 97.8 Intake and Output 10/12/16 10/12/16 10/13/16 15:00 23:00 07:00 Intake Total 1013 ml 1138.000 ml 1800 ml Output Total 4250 ml 4090 ml 2485 ml Balance -3237 ml -2952.000 ml -685 ml Exam HEENT examination; supple neck, no JVD. No lymphadenopathy. Pupils are midsize and sluggishly reactive to light bilaterally. Multiple well-healed cranial scars are seen. No neck masses. Fair dentition. No thyromegaly. Chest examination; upper lobes are clear to auscultation with minimally decreased breath sounds in lung bases bilaterally. S1-S2 audible, no murmurs. Regular rhythm. Tachycardic. Abdomen examination; soft, no organomegaly. Bowel sounds audible. G-tube in place. Extremity examination; no peripheral edema. Pulses 2+ bilaterally. SPOT WELDER BODY ASSEMBLY examination; patient remains unresponsive. Ventilator settings; assist control of 14, tidal volume 500, PEEP of 5, 30% FiO2. Results Result Diagram: 10/13/16 0541 10/13/16 0541 Results 24 hrs Laboratory Tests Test 10/12/16 12:10 10/12/16 19:40 10/13/16 03:05 10/13/16 05:41 Sodium Level 132 L 139 150 H Potassium Level 3.6 3.2 L Vancomycin Level Trough 23.4 *H Alanine Aminotransferase (ALT/SGPT) 49 Albumin 2.7 L Albumin/Globulin Ratio 0.96 Alkaline Phosphatase 163 H Anion Gap 15 Aspartate Amino Transf (AST/SGOT) 36 Basophils # 0.0 Basophils % 0.1 Blood Morphology Comment Blood Urea Nitrogen 4 L Calcium Level 8.7 Carbon Dioxide Level 26 Chloride Level 112 H Creatinine 0.28 L Direct Bilirubin 0.00 Eosinophils # 0.0 Eosinophils % 0.4 Globulin 2.80 Glucose Level 152 Hematocrit 33.4 L Hemoglobin 11.4 L Indirect Bilirubin 0.3 Lymphocytes # 0.4 L Lymphocytes % 3.5 L Magnesium Level 2.2 Mean Corpuscular Hemoglobin 32.3 Mean Corpuscular Hemoglobin Concent 34.1 Mean Corpuscular Volume 94.6 Mean Platelet Volume 6.3 L Monocytes # 1.2 H Monocytes % 10.6 Neutrophils # 9.8 H Neutrophils % 85.4 H Nucleated Red Blood Cells # 0.0 Nucleated Red Blood Cells % 0.0 Phosphorus Level 2.3 L Platelet Count 232 Red Blood Count 3.53 L Red Cell Distribution Width 15.9 H Total Bilirubin 0.3 Total Protein 5.5 L White Blood Count 11.4 #H Medications Medications Current Medications Sodium Chloride (NS) 1,000 ml @ 75 mls/hr [id number] IV Last administered on 10/12t 20:05; Admin Dose 75 MLS/HR; Start 10/10/16 at 13:49; Status Future Hold Ondansetron HCl (Zofran Inj) 4 mg Q6H PRN IV NAUSEA AND/OR VOMITING; Start 07/16 at 14:00 Nitroglycerin (Nitroglycerin (Sl Tab) 0.4 Mg) 1 tab Q5M PRN SL CHEST PAIN; Start 10/10/16 at 14:00 Acetaminophen (Tylenol Supp) 650 mg Q4H PRN [place] PAIN LEVEL 1-3 OR FEVER; Start 10/10/16 at 14:00 Morphine Sulfate (morphine) 2 mg Q4H PRN IV PAIN LEVEL 7-10; Start 10/10/16 at 14:00 Lorazepam (Ativan) 1 mg Q2H PRN IV ANXIETY Last administered on 10/13/16 04:03 ; Admin Dose 1 MG; Start 10/10/16 at 14:00 Docusate Sodium (Colace) 100 mg Q12H PRN PO CONSTIPATION; Start 10/10/16 at 14: 00 Pantoprazole 40 mg 40 mg DAILY@06 IV Last administered on 10/13/16 05:06; Admin Dose 40 MG; Start 10/11/16 at 06:00 Levetiracetam 1000 mg/Sodium Chloride 110 ml @ 440 mls/hr Q12 IVPB Last administered on 10/13/16 09:15; Admin Dose 440 MLS/HR; Start 10/10/16 at 14:00 Cefepime HCl (Maxipime 1gm/50 ml (Pmx)) 50 ml @ 100 mls/hr Q12 IVPB Last administered on 10/13/16 09:15; Admin Dose 100 MLS/HR; Start 10/10/16 at 21:00 Hydralazine HCl 10 mg 10 mg Q6H PRN IV ELEVATED BLOOD PRESSURE Last administered on 10/12/16 19:03; Admin Dose 10 MG; Start 10/10/16 at 19:00 Vancomycin HCl 250 ml @ 125 mls/hr Q8H IVPB Last administered on 10/13/16 09: 14; Admin Dose 125 MLS/HR; Start 10/13/16 at 08:00 Dextrose 1,000 ml @ 0 mls/hr Q0M IV Last administered on 10/13/16 08:13; Admin Dose 500 MLS/HR; Start 10/13/16 at 08:00; Stop 10/13/16 at 12:00 Potassium Chloride/Dextrose 1,000 ml @ 100 mls/hr Q10H IV Last administered on 10/13/16 09:14; Admin Dose 100 MLS/HR; Start 10/13/16 at 08:00 Potassium Phosphate/Sodium Chloride (K Phos (Meq)/NS) 253.4091 ml @ 63.352 m... ONCE ONCE IVPB Last administered on 10/13/16 09:14; Admin Dose 63.352 MLS/HR; Start 10/13/16 at 09:00; Stop 2/14/17 at 12:59 Desmopressin Acetate (Ddavp) 0.2 mg ONCE PEG Last administered on 10/13/16t 09: 14; Admin Dose 0.2 MG; Start 10/13/16 at 08:00; Stop 10/13/16 at 12:00 JUANA DE LEÓN Oct 13, 2016 09:31
--- NOTE | 2016-10-13 11:38 | CONS ---
Date/Time of Note Date/Time of Note DATE: 10/13/16 TIME: 11:33 Assessment/Plan Assessment/Plan Additional Assessment/Plan 1. Severe hyponatremia with a sodium of 119, possibly acute on chronic hyponatremia versus acute severe hyponatremia.- pt went from hyponatremia to hypernatremia with treatment with 3% saline and one dose of tolvaptan 2. Seizures secondary to severe hyponatremia. 3. Sepsis secondary to bilateral pneumonia. 4. Ventilator-dependent respiratory failure, status post tracheostomy, on vent. 5. History of a previous brain tumor, had surgery. Currently, status post ventriculoperitoneal shunt in place. 6. History of a previous cerebellar cerebrovascular accident. PLAN: pt received 3 % saline and tolvaptan one dose- went into polyuria, Na went from hyponatremia to hypernatremia to D5W 1 liter bolus then followed by D5 W with KCl at 100 cc/hr potassium phosphate 15 mmol iv x 1 dose now D/c 1/2 NS give DDAVP 0.2mg X 1 dose now for polyuria-expecting urine outptut to slow down ventilator care as per pulmonary will continue to follow up Consultation Date/Type/Reason Admit Date/Time Oct 10, 2016 at 13:53 Initial Consult Date 10/10/16 Type of Consultation: NEPHROLOGY Reason for Consultation hyponatremia to Hypernatremia Referring Provider: MADDY HOPKINS MD 24 HR Interval Summary Free Text/Dictation pt went into polyuria, making urine 300cc/hr, Na trended up Exam/Review of Systems Vital Signs Vitals Vital Signs Date Time Temp Pulse Resp B/P Pulse Ox O2 Delivery O2 Flow Rate FiO2 10/13/16 08:00 133 10/13/16 06:00 14 133/89 98 Mechanical Ventilator 10/13/16 05:39 40 10/13/16 04:00 97.8 Intake and Output 10/12/16 10/12/16 10/13/16 15:00 23:00 07:00 Intake Total 1013 ml 1138.000 ml 1800 ml Output Total 4250 ml 4090 ml 2485 ml Balance -3237 ml -2952.000 ml -685 ml Exam GENERAL: The patient is currently on a ventilator, through tracheostomy. HEENT: Tracheostomy site is clear. LUNGS: Bilateral coarse breath sounds with bilateral basilar rales present and lower lobe rhonchi present. HEART: S1, S2, tachycardia, no murmur. ABDOMEN: Soft. G-tube in place. EXTREMITIES: No clubbing, cyanosis, or edema. The patient is very debilitated. PSYCHIATRIC: Not able to assess. NEUROLOGICAL: Not able to assess. , + steve catheter in place Results Result Diagram: 10/13/16 0541 10/13/16 0541 Results 24 hrs Laboratory Tests Test 10/12/16 12:10 10/12/16 19:40 10/13/16 03:05 10/13/16 05:41 Sodium Level 132 L 139 150 H Potassium Level 3.6 3.2 L Vancomycin Level Trough 23.4 *H Alanine Aminotransferase (ALT/SGPT) 49 Albumin 2.7 L Albumin/Globulin Ratio 0.96 Alkaline Phosphatase 163 H Anion Gap 15 Aspartate Amino Transf (AST/SGOT) 36 Basophils # 0.0 Basophils % 0.1 Blood Morphology Comment Blood Urea Nitrogen 4 L Calcium Level 8.7 Carbon Dioxide Level 26 Chloride Level 112 H Creatinine 0.28 L Direct Bilirubin 0.00 Eosinophils # 0.0 Eosinophils % 0.4 Globulin 2.80 Glucose Level 152 Hematocrit 33.4 L Hemoglobin 11.4 L Indirect Bilirubin 0.3 Lymphocytes # 0.4 L Lymphocytes % 3.5 L Magnesium Level 2.2 Mean Corpuscular Hemoglobin 32.3 Mean Corpuscular Hemoglobin Concent 34.1 Mean Corpuscular Volume 94.6 Mean Platelet Volume 6.3 L Monocytes # 1.2 H Monocytes % 10.6 Neutrophils # 9.8 H Neutrophils % 85.4 H Nucleated Red Blood Cells # 0.0 Nucleated Red Blood Cells % 0.0 Osmolality 290 Phosphorus Level 2.3 L Platelet Count 232 Red Blood Count 3.53 L Red Cell Distribution Width 15.9 H Total Bilirubin 0.3 Total Protein 5.5 L White Blood Count 11.4 #H Medications Medications Current Medications Sodium Chloride (NS) 1,000 ml @ 75 mls/hr [id number] IV Last administered on 10/12t 20:05; Admin Dose 75 MLS/HR; Start 10/10/16 at 13:49; Status Future Hold Ondansetron HCl (Zofran Inj) 4 mg Q6H PRN IV NAUSEA AND/OR VOMITING; Start 07/16 at 14:00 Nitroglycerin (Nitroglycerin (Sl Tab) 0.4 Mg) 1 tab Q5M PRN SL CHEST PAIN; Start 10/10/16 at 14:00 Acetaminophen (Tylenol Supp) 650 mg Q4H PRN [place] PAIN LEVEL 1-3 OR FEVER; Start 10/10/16 at 14:00 Morphine Sulfate (morphine) 2 mg Q4H PRN IV PAIN LEVEL 7-10; Start 10/10/16 at 14:00 Lorazepam (Ativan) 1 mg Q2H PRN IV ANXIETY Last administered on 10/13/16 04:03 ; Admin Dose 1 MG; Start 10/10/16 at 14:00 Docusate Sodium (Colace) 100 mg Q12H PRN PO CONSTIPATION; Start 10/10/16 at 14: 00 Pantoprazole 40 mg 40 mg DAILY@06 IV Last administered on 10/13/16 05:06; Admin Dose 40 MG; Start 10/11/16 at 06:00 Levetiracetam 1000 mg/Sodium Chloride 110 ml @ 440 mls/hr Q12 IVPB Last administered on 10/13/16 09:15; Admin Dose 440 MLS/HR; Start 10/10/16 at 14:00 Cefepime HCl (Maxipime 1gm/50 ml (Pmx)) 50 ml @ 100 mls/hr Q12 IVPB Last administered on 10/13/16 09:15; Admin Dose 100 MLS/HR; Start 10/10/16 at 21:00 Hydralazine HCl 10 mg 10 mg Q6H PRN IV ELEVATED BLOOD PRESSURE Last administered on 10/12/16 19:03; Admin Dose 10 MG; Start 10/10/16 at 19:00 Vancomycin HCl 250 ml @ 125 mls/hr Q8H IVPB Last administered on 10/13/16 09: 14; Admin Dose 125 MLS/HR; Start 10/13/16 at 08:00 Dextrose 1,000 ml @ 0 mls/hr Q0M IV Last administered on 10/13/16 08:13; Admin Dose 500 MLS/HR; Start 10/13/16 at 08:00; Stop 10/13/16 at 12:00 Potassium Chloride/Dextrose 1,000 ml @ 100 mls/hr Q10H IV Last administered on 10/13/16 09:14; Admin Dose 100 MLS/HR; Start 10/13/16 at 08:00 Potassium Phosphate/Sodium Chloride (K Phos (Meq)/NS) 253.4091 ml @ 63.352 m... ONCE ONCE IVPB Last administered on 10/13/16 09:14; Admin Dose 63.352 MLS/HR; Start 10/13/16 at 09:00; Stop 10/13/16 at 12:59 Desmopressin Acetate (Ddavp) 0.2 mg ONCE PEG Last administered on 10/13/16 09: 14; Admin Dose 0.2 MG; Start 10/13/16 at 08:00; Stop 10/13/16 at 12:00 Miscellaneous Information (*Rx Drug Level Order Reminder*) 1 ONCE ONCE XX ; Start 10/14/16 at 07:00; Stop 10/14/16 at 07:01 LISSA PARK MD Oct 13, 2016 11:38
--- NOTE | 2016-10-13 11:45 | PN ---
DATE: 10/13/2016 SUBJECTIVE: No acute events. The patient is lying comfortably in bed. He is afebrile. OBJECTIVE: VITAL SIGNS: Temperature 97.8, pulse 120, respirations 20, blood pressure 146/88, saturation 97% on vent. WBC 11.4, H and H 11.4 and 33.4, platelets 232, neutrophils 85.4, BUN 4, creatinine 0.28. MICROBIOLOGY: Urine culture growing enterococcus species. Blood cultures have been negative. DIAGNOSTICS: Chest x-ray yesterday revealed bilateral pleural effusions with improved slight lung aeration. INDWELLINGS: Trach, PEG, Knapp, peripheral IV. PHYSICAL EXAMINATION: GENERAL: Chronically ill-appearing, well-developed, middle-aged man who is lying comfortably in bed. The patient is nonverbal, noncommunicative. HEENT: Head atraumatic, normocephalic. Sclerae anicteric. Buccal mucosa dry. NECK: Supple. Tracheostomy present. CHEST: Rise symmetrical. Breath sounds diminished. HEART: S1, S2. ABDOMEN: Soft, bowel tones present. EXTREMITIES: Bilateral trace edema. ASSESSMENT: 1. Sepsis. 2. Enterococcal urinary tract infection. 3. Healthcare-associated pneumonia. 4. Chronic encephalopathy. 5. History of brainstem glioma status post chemo. 6. Seizure disorder. PLAN: The patient remains unchanged. Covered with broad spectrum antibiotics. He is getting free water boluses for hyponatremia. Chest x-ray from yesterday , improved. Continue present care. Dictated By: ROSANGELA CARDONA [employer]OMASS PLANT MANAGER for QUINTIN DOMÍNGUEZ/PIPER Conf#: [id number] DID#: [id number]
--- NOTE | 2016-10-13 11:59 | PN ---
Date/Time of Note Date/Time of Note DATE: 10/13/16 TIME: 11:55 Assessment/Plan VTE Prophylaxis VTE Prophylaxis Intervention: SCD's Lines/Catheters IV Catheter Type (from [facility]): Peripheral IV Urinary Cath still in place: Yes Reason Cath still needed: urinary retention Assessment/Plan Chief Complaint/Hosp Course Assessment/Plan: 51 yo male with a past medical history of CVA, brainstem glioma with trach/peg status, who came via ambulance for seizure like activity from intermediate facility. 1. Encephalopathy - neurologic type - appears to be chronic? 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 + seizures and severe hyponatremia as well. - monitor changes, f/o NSS and Neuro rec's. 2. Seizures - thought to be 2/2 to severe hyponatremia - slowly improving but still present. EEG showed: Abnormal study secondary to background slowing which could reflect presence of encephalopathy as well as presence of left frontal central sharps which may reflect presence of periodic lateralized epileptiform discharges and clearly, given the patient's history, are epileptogenic. - f/u consult neurology rec's - continue IV keppra, seizure precautions, prn ativan for overriding seizures - Vit B12, folate levels 3. Severe hyponatremia - SIADH vs other etiologies - pt has been receiving tolvaptan and IV NS - now hypernatremic this AM (122 -> 127 - - -> 150) - monitor Na+ levels Q8 hrs, renal rec's - free H2O, D5W IVF's 4. Sepsis 2/2 to bilateral pneumonia - HCAP - on cefepime/vanc- appreciate ID - continue 5. Vent dependent respiratory failure - appreciate pulm, continue with vent - wean as tolerated 6. Anemia - chronic disease - monitor H/H 7. CLEARING TUB WORKER shunt - monitor any acute changes 8. Transaminitis - monitor - 2/2 to sepsis 9. CVA - precautions - hold aspirin 10. GI ppx - protonix 11. DVT ppx - scds as per clinical course. monitor labs Critical care time spent with pt care today = 40 min. Problems: Subjective 24 Hr Interval Summary Free Text/Dictation Pt with hypernatremia now, sen by ID and renal teams. Exam/Review of Systems Vital Signs Vitals Vital Signs Date Time Temp Pulse Resp B/P Pulse Ox O2 Delivery O2 Flow Rate FiO2 10/13/16 08:00 133 10/13/16 06:00 14 133/89 98 Mechanical Ventilator 10/13/16 05:39 40 10/13/16 04:00 97.8 Intake and Output 10/12/16 10/12/16 10/13/16 15:00 23:00 07:00 Intake Total 1013 ml 1138.000 ml 1800 ml Output Total 4250 ml 4090 ml 2485 ml Balance -3237 ml -2952.000 ml -685 ml Exam Gen Octavia: obtunded HEENT: NC/AT, PERRLA, trach NECK: trached, no secretions noted THORAX: symmetrical, no obvious deformities CV: S1S2, RRR, no M/G/R Lungs: bilateral rhonchi with end expiratory wheezing noted, no crackles Abd: soft, NT/ND, +BS, no rebound, no guarding, neg HSM, peg site C/D/I EXT:trace bilateral lower extremity edema, no ecchymosis, no clubbing, muscle wasting noted Neuro: obtunded Psych: cannot asses Skin: decreased skin turgor Results Result Diagram: 10/13/16 0541 10/13/16 0541 Results 24 hrs Laboratory Tests Test 10/12/16 12:10 10/12/16 19:40 10/13/16 03:05 10/13/16 05:41 Sodium Level 132 L 139 150 H Potassium Level 3.6 3.2 L Vancomycin Level Trough 23.4 *H Alanine Aminotransferase (ALT/SGPT) 49 Albumin 2.7 L Albumin/Globulin Ratio 0.96 Alkaline Phosphatase 163 H Anion Gap 15 Aspartate Amino Transf (AST/SGOT) 36 Basophils # 0.0 Basophils % 0.1 Blood Morphology Comment Blood Urea Nitrogen 4 L Calcium Level 8.7 Carbon Dioxide Level 26 Chloride Level 112 H Creatinine 0.28 L Direct Bilirubin 0.00 Eosinophils # 0.0 Eosinophils % 0.4 Globulin 2.80 Glucose Level 152 Hematocrit 33.4 L Hemoglobin 11.4 L Indirect Bilirubin 0.3 Lymphocytes # 0.4 L Lymphocytes % 3.5 L Magnesium Level 2.2 Mean Corpuscular Hemoglobin 32.3 Mean Corpuscular Hemoglobin Concent 34.1 Mean Corpuscular Volume 94.6 Mean Platelet Volume 6.3 L Monocytes # 1.2 H Monocytes % 10.6 Neutrophils # 9.8 H Neutrophils % 85.4 H Nucleated Red Blood Cells # 0.0 Nucleated Red Blood Cells % 0.0 Osmolality 290 Phosphorus Level 2.3 L Platelet Count 232 Red Blood Count 3.53 L Red Cell Distribution Width 15.9 H Total Bilirubin 0.3 Total Protein 5.5 L White Blood Count 11.4 #H Medications Medications Current Medications Sodium Chloride (NS) 1,000 ml @ 75 mls/hr [id number] IV Last administered on 10/12 20:05; Admin Dose 75 MLS/HR; Start 10/10/16 at 13:49; Status Future Hold Ondansetron HCl (Zofran Inj) 4 mg Q6H PRN IV NAUSEA AND/OR VOMITING; Start 07/16 at 14:00 Nitroglycerin (Nitroglycerin (Sl Tab) 0.4 Mg) 1 tab Q5M PRN SL CHEST PAIN; Start 10/10/16 at 14:00 Acetaminophen (Tylenol Supp) 650 mg Q4H PRN [place] PAIN LEVEL 1-3 OR FEVER; Start 10/10/16 at 14:00 Morphine Sulfate (morphine) 2 mg Q4H PRN IV PAIN LEVEL 7-10; Start 10/10/16 at 14:00 Lorazepam (Ativan) 1 mg Q2H PRN IV ANXIETY Last administered on 10/13/16 04:03 ; Admin Dose 1 MG; Start 10/10/16 at 14:00 Docusate Sodium (Colace) 100 mg Q12H PRN PO CONSTIPATION; Start 10/10/16 at 14: 00 Pantoprazole 40 mg 40 mg DAILY@06 IV Last administered on 10/13/16 05:06; Admin Dose 40 MG; Start 10/11/16 at 06:00 Levetiracetam 1000 mg/Sodium Chloride 110 ml @ 440 mls/hr Q12 IVPB Last administered on 10/13/16 09:15; Admin Dose 440 MLS/HR; Start 10/10/16 at 14:00 Cefepime HCl (Maxipime 1gm/50 ml (Pmx)) 50 ml @ 100 mls/hr Q12 IVPB Last administered on 10/13/16 09:15; Admin Dose 100 MLS/HR; Start 10/10/16 at 21:00 Hydralazine HCl 10 mg 10 mg Q6H PRN IV ELEVATED BLOOD PRESSURE Last administered on 10/12/16 19:03; Admin Dose 10 MG; Start 10/10/16 at 19:00 Vancomycin HCl 250 ml @ 125 mls/hr Q8H IVPB Last administered on 10/13/16 09: 14; Admin Dose 125 MLS/HR; Start 10/13/16 at 08:00 Dextrose 1,000 ml @ 0 mls/hr Q0M IV Last administered on 10/13/16 08:13; Admin Dose 500 MLS/HR; Start 10/13/16 at 08:00; Stop 10/13/16 at 12:00 Potassium Chloride/Dextrose 1,000 ml @ 100 mls/hr Q10H IV Last administered on 10/13/16 09:14; Admin Dose 100 MLS/HR; Start 10/13/16 at 08:00 Potassium Phosphate/Sodium Chloride (K Phos (Meq)/NS) 253.4091 ml @ 63.352 m... ONCE ONCE IVPB Last administered on 10/13/16 09:14; Admin Dose 63.352 MLS/HR; Start 10/13/16 at 09:00; Stop 10/13/16 at 12:59 Desmopressin Acetate (Ddavp) 0.2 mg ONCE PEG Last administered on 10/13/16 09: 14; Admin Dose 0.2 MG; Start 10/13/16 at 08:00; Stop 10/13/16 at 12:00 Miscellaneous Information (*Rx Drug Level Order Reminder*) 1 ONCE ONCE XX ; Start 10/14/16 at 07:00; Stop 10/14/16 at 07:01 FAUSTO CHOU Oct 13, 2016 11:59
[2016-10-13] MEDS ORDERED: POTASSIUM PHOSPHATE 20 MEQ in SOD CHLORIDE 0.9% 250 ML IVPB ONE (13:00)
[2016-10-14] VITALS (35 sets, daily range): BP systolic 105–163; BP diastolic 69–113; PULSE 97–139; RESP 14–26
[2016-10-14] MEDS: D5W + KCL 20 MEQ 1,000 ML IV SCH ×2 (04:43→14:33)
[2016-10-14] MEDS: PANTOPRAZOLE 40 MG INJ IV SCH (05:23)
[2016-10-14] MEDS: hydrALAzine 20 MG INJ IV PRN ×2 (06:25→18:36)
[2016-10-14 07:18] LABS: BASOPHIL # 0.1 10^3/ul (0.0-0.1); BASOPHILS % 0.6 % (0.0-2.0); EOSINOPHILS # 0.1 10^3/ul (0.0-0.5); EOSINOPHILS % 0.8 % (0.0-7.0); HEMATOCRIT 31.3 % (42.0-52.0); HEMOGLOBIN 10.6 g/dl (14.0-18.0); LYMPHOCYTES # 0.8 10^3/ul (0.8-2.9); LYMPHOCYTES % 9.1 % (15.0-51.0); MEAN CORPUSCULAR HEMOGLOBIN 31.8 pg (29.0-33.0); MEAN CORPUSCULAR VOLUME 93.6 fl (82.0-101.0); MEAN PLATELET VOLUME 6.1 fl (7.4-10.4); MONOCYTE # 0.9 10^3/ul (0.3-0.9); MONOCYTES % 9.6 % (0.0-11.0); NEUTROPHIL # 7.2 10^3/ul (1.6-7.5); NEUTROPHILS % 79.9 % (39.0-77.0); PLATELET COUNT 228 10^3/UL (140-440); RED BLOOD COUNT 3.35 10^6/ul (4.70-6.10); RED CELL DISTRIBUTION WIDTH 16.5 % (11.5-14.5)
[2016-10-14 07:26] LABS: ALBUMIN 2.7 g/dl (3.3-4.9)
[2016-10-14 07:27] LABS: CONDITION 1; LH ANALYZER COMMENTS 1
[2016-10-14 07:28] LABS: CREATININE 0.27 mg/dl (0.61-1.24)
[2016-10-14 07:29] LABS: BILIRUBIN,INDIRECT 0.3 mg/dl (0-1.1); BILIRUBIN,TOTAL 0.3 mg/dl (0.2-1.3); TOTAL PROTEIN 5.4 g/dl (6.1-8.1)
[2016-10-14 07:30] LABS: CALCIUM 8.6 mg/dl (8.4-10.2)
--- NOTE | 2016-10-14 07:44 | CONS ---
Date/Time of Note Date/Time of Note DATE: 10/14/16 TIME: 07:41 Assessment/Plan Assessment/Plan Additional Assessment/Plan Ventilator settings; assist control of 14, tidal volume 500, PEEP of 5, 40% FiO2. Assessment and recommendations; 1. Patient admitted for sepsis. 2. Chronic respiratory failure ventilator dependent. 3. 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 Next 4. Febrile seizure disorder. 5. Persistent hypernatremia. Patient currently getting free water via NG tube as well as D5 intravenously. Continue current treatment. Will obtain a chest x-ray. Once x-rays done I will review it and make further recommendations. Consultation Date/Type/Reason Admit Date/Time Oct 10, 2016 at 13:53 Initial Consult Date 10/10/16 Type of Consultation: Pulmonary/critical care Referring Provider: MADDY HOPKINS MD 24 HR Interval Summary Free Text/Dictation Patient condition remains stable. Remains unresponsive due to underlying anoxic enthesopathy. Remains ventilator dependent. General examination; middle aged man, on ventilator via tracheostomy currently in no distress. Exam/Review of Systems Vital Signs Vitals Vital Signs Date Time Temp Pulse Resp B/P Pulse Ox O2 Delivery O2 Flow Rate FiO2 10/14/16 06:00 114 15 160/91 99 Mechanical Ventilator 10/14/16 05:17 40 10/14/16 04:00 99.4 Intake and Output 10/13/16 10/13/16 10/14/16 15:00 23:00 07:00 Intake Total 240 ml 1060 ml 1310 ml Output Total 1610 ml 1630 ml 1675 ml Balance -1370 ml -570 ml -365 ml Exam HEENT examination; supple neck, no JVD. No lymphadenopathy. Tracheostomy in place. Fair dentition. Pupils are midsize and reactive to light. No thyromegaly. Chest examination; clear to auscultation bilaterally. S1-S2 audible, no murmurs. Regular rhythm. Abdomen examination; soft, nondistended. No organomegaly. G-tube in place. Bowel sounds audible. Next Extremity examination; no peripheral edema. Pulses 1+ bilaterally. REPRODUCTIVE ENDOCRINOLOGIST examination; patient remains unresponsive. Results Result Diagram: 10/14/16 0710/14/16 0705 Results 24 hrs Laboratory Tests Test 10/13/16 10:05 10/14/16 07:05 Urine Osmolality 182 L Urine Random Sodium 58 Alanine Aminotransferase (ALT/SGPT) 45 Albumin 2.7 L Albumin/Globulin Ratio 1.00 Alkaline Phosphatase 152 H Anion Gap 13 Aspartate Amino Transf (AST/SGOT) 26 Basophils # 0.1 Basophils % 0.6 Blood Morphology Comment Blood Urea Nitrogen 3 L Calcium Level 8.6 Carbon Dioxide Level 30 Chloride Level 111 H Creatinine 0.27 L Direct Bilirubin 0.00 Eosinophils # 0.1 Eosinophils % 0.8 Globulin 2.70 Glucose Level 252 #H Hematocrit 31.3 L Hemoglobin 10.6 L Indirect Bilirubin 0.3 Lymphocytes # 0.8 Lymphocytes % 9.1 L Mean Corpuscular Hemoglobin 31.8 Mean Corpuscular Hemoglobin Concent 34.0 Mean Corpuscular Volume 93.6 Mean Platelet Volume 6.1 L Monocytes # 0.9 Monocytes % 9.6 Neutrophils # 7.2 Neutrophils % 79.9 H Nucleated Red Blood Cells # 0.0 Nucleated Red Blood Cells % 0.0 Platelet Count 228 Potassium Level 3.0 L Red Blood Count 3.35 L Red Cell Distribution Width 16.5 H Sodium Level 151 H Total Bilirubin 0.3 Total Protein 5.4 L Vancomycin Level Trough 18.0 White Blood Count 9.0 # Medications Medications Current Medications Sodium Chloride (NS) 1,000 ml @ 75 mls/hr [id number] IV Last administered on 10/12 20:05; Admin Dose 75 MLS/HR; Start 10/10/16 at 13:49; Status Future Hold Ondansetron HCl (Zofran Inj) 4 mg Q6H PRN IV NAUSEA AND/OR VOMITING; Start 07/16 at 14:00 Nitroglycerin (Nitroglycerin (Sl Tab) 0.4 Mg) 1 tab Q5M PRN SL CHEST PAIN; Start 10/10/16 at 14:00 Acetaminophen (Tylenol Supp) 650 mg Q4H PRN [place] PAIN LEVEL 1-3 OR FEVER; Start 10/10/16 at 14:00 Morphine Sulfate (morphine) 2 mg Q4H PRN IV PAIN LEVEL 7-10; Start 10/10/16 at 14:00 Lorazepam (Ativan) 1 mg Q2H PRN IV ANXIETY Last administered on 10/13/16 04:03 ; Admin Dose 1 MG; Start 10/10/16 at 14:00 Docusate Sodium (Colace) 100 mg Q12H PRN PO CONSTIPATION; Start 10/10/16 at 14: 00 Pantoprazole 40 mg 40 mg DAILY@06 IV Last administered on 10/14/16 05:23; Admin Dose 40 MG; Start 10/11/16 at 06:00 Levetiracetam 1000 mg/Sodium Chloride 110 ml @ 440 mls/hr Q12 IVPB Last administered on 10/13/16 20:21; Admin Dose 440 MLS/HR; Start 10/10/16 at 14:00 Cefepime HCl (Maxipime 1gm/50 ml (Pmx)) 50 ml @ 100 mls/hr Q12 IVPB Last administered on 10/13/16 20:23; Admin Dose 100 MLS/HR; Start 10/10/16 at 21:00 Hydralazine HCl 10 mg 10 mg Q6H PRN IV ELEVATED BLOOD PRESSURE Last administered on 10/14/16 06:25; Admin Dose 10 MG; Start 10/10/16 at 19:00 Vancomycin HCl 250 ml @ 125 mls/hr Q8H IVPB Last administered on 10/13/16 23: 59; Admin Dose 125 MLS/HR; Start 10/13/16 at 08:00 Potassium Chloride/Dextrose (D5W + KCl 20 Meq) 1,000 ml @ 100 mls/hr Q10H IV Last administered on 10/14/16 04:43; Admin Dose 100 MLS/HR; Start 10/13/16 at 08:00 JUANA DE LEÓN Oct 14, 2016 07:44
[2016-10-14 08:29] LABS: MAGNESIUM 1.9 mg/dl (1.7-2.5); PHOSPHORUS 2.8 mg/dl (2.5-4.9)
[2016-10-14] MEDS: VANCOMYCIN 1 GM in NS 250 ML IVPB SCH (08:32)
[2016-10-14] MEDS: LEVETIRACETAM IV 1,000 MG in SOD CHLORIDE 0.9% 100 ML IVPB SCH ×2 (08:32→21:01)
[2016-10-14] MEDS: CEFEPIME 1GM/50 ML (PMX) 50 ML IVPB SCH ×2 (08:32→21:01)
--- NOTE | 2016-10-14 09:06 | CONS ---
Date/Time of Note Date/Time of Note DATE: 10/14/16 TIME: 09:03 Assessment/Plan Assessment/Plan Additional Assessment/Plan 1. Severe hyponatremia with a sodium of 119, possibly acute on chronic hyponatremia versus acute severe hyponatremia.- pt went from hyponatremia to hypernatremia with treatment with 3% saline and one dose of tolvaptan 2. Seizures secondary to severe hyponatremia. 3. Sepsis secondary to bilateral pneumonia. 4. Ventilator-dependent respiratory failure, status post tracheostomy, on vent. 5. History of a previous brain tumor, had surgery. Currently, status post ventriculoperitoneal shunt in place. 6. History of a previous cerebellar cerebrovascular accident. PLAN: pt received 3 % saline and tolvaptan one dose- went into polyuria, Na went from hyponatremia to hypernatremia to continue D5 W with KCl at 100 cc/hr KCl 20mEQ IV X 1 extra dose give DDAVP 0.2mg PO TID now for polyuria-expecting urine outptut to slow down ventilator care as per pulmonary will continue to follow up Consultation Date/Type/Reason Admit Date/Time Oct 10, 2016 at 13:53 Initial Consult Date 10/10/16 Type of Consultation: NEPHROLOGY Referring Provider: MADDY HOPKINS MD 24 HR Interval Summary Free Text/Dictation Urine out slowdown to 5 liter /day, Now HR more stable, on D5W with KCL Exam/Review of Systems Vital Signs Vitals Vital Signs Date Time Temp Pulse Resp B/P Pulse Ox O2 Delivery O2 Flow Rate FiO2 10/14/16 08:00 120 10/14/16 06:00 15 160/91 99 Mechanical Ventilator 10/14/16 05:17 40 10/14/16 04:00 99.4 Intake and Output 10/13/16 10/13/16 10/14/16 15:00 23:00 07:00 Intake Total 240 ml 1060 ml 1310 ml Output Total 1610 ml 1630 ml 1675 ml Balance -1370 ml -570 ml -365 ml Exam GENERAL: The patient is currently on a ventilator, through tracheostomy. HEENT: Tracheostomy site is clear. LUNGS: Bilateral coarse breath sounds with bilateral basilar rales present and lower lobe rhonchi present. HEART: S1, S2, tachycardia, no murmur. ABDOMEN: Soft. G-tube in place. EXTREMITIES: No clubbing, cyanosis, or edema. The patient is very debilitated. PSYCHIATRIC: Not able to assess. NEUROLOGICAL: Not able to assess. , + steve catheter in place Results Result Diagram: 10/14/16 0705 10/14/16 0705 Results 24 hrs Laboratory Tests Test 10/13/16 10:05 10/14/16 07:05 Urine Osmolality 182 L Urine Random Sodium 58 Alanine Aminotransferase (ALT/SGPT) 45 Albumin 2.7 L Albumin/Globulin Ratio 1.00 Alkaline Phosphatase 152 H Anion Gap 13 Aspartate Amino Transf (AST/SGOT) 26 Basophils # 0.1 Basophils % 0.6 Blood Morphology Comment Blood Urea Nitrogen 3 L Calcium Level 8.6 Carbon Dioxide Level 30 Chloride Level 111 H Creatinine 0.27 L Direct Bilirubin 0.00 Eosinophils # 0.1 Eosinophils % 0.8 Globulin 2.70 Glucose Level 252 #H Hematocrit 31.3 L Hemoglobin 10.6 L Indirect Bilirubin 0.3 Lymphocytes # 0.8 Lymphocytes % 9.1 L Magnesium Level 1.9 Mean Corpuscular Hemoglobin 31.8 Mean Corpuscular Hemoglobin Concent 34.0 Mean Corpuscular Volume 93.6 Mean Platelet Volume 6.1 L Monocytes # 0.9 Monocytes % 9.6 Neutrophils # 7.2 Neutrophils % 79.9 H Nucleated Red Blood Cells # 0.0 Nucleated Red Blood Cells % 0.0 Phosphorus Level 2.8 Platelet Count 228 Potassium Level 3.0 L Red Blood Count 3.35 L Red Cell Distribution Width 16.5 H Sodium Level 151 H Total Bilirubin 0.3 Total Protein 5.4 L Vancomycin Level Trough 18.0 White Blood Count 9.0 # Medications Medications Current Medications Sodium Chloride (NS) 1,000 ml @ 75 mls/hr [id number] IV Last administered on 10/12t 20:05; Admin Dose 75 MLS/HR; Start 10/10/16 at 13:49; Status Future Hold Ondansetron HCl (Zofran Inj) 4 mg Q6H PRN IV NAUSEA AND/OR VOMITING; Start 07/16 at 14:00 Nitroglycerin (Nitroglycerin (Sl Tab) 0.4 Mg) 1 tab Q5M PRN SL CHEST PAIN; Start 10/10/16 at 14:00 Acetaminophen (Tylenol Supp) 650 mg Q4H PRN [place] PAIN LEVEL 1-3 OR FEVER; Start 10/10/16 at 14:00 Morphine Sulfate (morphine) 2 mg Q4H PRN IV PAIN LEVEL 7-10; Start 10/10/16 at 14:00 Lorazepam (Ativan) 1 mg Q2H PRN IV ANXIETY Last administered on 10/13/16 04:03 ; Admin Dose 1 MG; Start 10/10/16 at 14:00 Docusate Sodium (Colace) 100 mg Q12H PRN PO CONSTIPATION; Start 10/10/16 at 14: 00 Pantoprazole 40 mg 40 mg DAILY@06 IV Last administered on 10/14/16 05:23; Admin Dose 40 MG; Start 10/11/16 at 06:00 Levetiracetam 1000 mg/Sodium Chloride 110 ml @ 440 mls/hr Q12 IVPB Last administered on 10/14/16 08:32; Admin Dose 440 MLS/HR; Start 10/10/16 at 14:00 Cefepime HCl (Maxipime 1gm/50 ml (Pmx)) 50 ml @ 100 mls/hr Q12 IVPB Last administered on 10/14/16 08:32; Admin Dose 100 MLS/HR; Start 10/10/16 at 21:00 Hydralazine HCl 10 mg 10 mg Q6H PRN IV ELEVATED BLOOD PRESSURE Last administered on 10/14/16 06:25; Admin Dose 10 MG; Start 10/10/16 at 19:00 Vancomycin HCl 250 ml @ 125 mls/hr Q8H IVPB Last administered on 10/14/16 08: 32; Admin Dose 125 MLS/HR; Start 10/13/16 at 08:00 Potassium Chloride/Dextrose (D5W + KCl 20 Meq) 1,000 ml @ 100 mls/hr Q10H IV Last administered on 10/14/16 04:43; Admin Dose 100 MLS/HR; Start 10/13/16 at 08:00 LISSA PAKR MD Oct 14, 2016 09:06
--- NOTE | 2016-10-14 09:19 | RADRPT ---
PROCEDURE: XR Chest. CLINICAL INDICATION: Respiratory failure TECHNIQUE: An AP view of the chest was obtained. COMPARISON: Chest x-ray dated 10/12/2016 FINDINGS: A tracheostomy tube is in place. There is tubing from a ventriculoperitoneal shunt over the right ne ck and chest wall. Lung volumes are low. There is prominence of the interstitial markings with bibasilar interstitial opacities and small bilateral pleural effusions. No pneumothorax is seen. The cardiomediastinal silhouette is within normal limits for size. The osseous structures are unremarkable. IMPRESSION: 1. Small bilateral pleural effusions with bibasilar interstitial opacities which may reflect inters titial edema, atelectasis, and / or pneumonitis. Overall, lung aeration is mildly improved when com pared to the prior examination. 2. Tubes and lines, as described above. RPTAT: HH .Ana Lilia Kirk MD, MD Date Time Electronically viewed and signed by .Ana Lilia Kirk MD, on 10/14/2016 09:18 .G/
[2016-10-14] MEDS ORDERED: POTASSIUM CHLORIDE 20 MEQ in SOD CHLORIDE 0.9% 100 ML IVPB ONE (11:00)
[2016-10-14] MEDS: DESMOPRESSIN 0.1 MG TAB PO SCH ×3 (11:05→21:00)
--- NOTE | 2016-10-14 11:43 | PN ---
DATE: 10/14/2016 SUBJECTIVE: No acute changes. The patient is lying comfortably in bed, nonverbal, noncommunicative . He is afebrile. He is slightly tachycardic. VITAL SIGNS: Temperature 99.4, pulse 114, respirations 15, blood pressure 160/99, saturation 99% on 40 FIO2. WBC 9, H and H 10.6 and 31.3, platelets 228, neutrophils 79.9, BUN 3, creatinine 0.27. DIAGNOSTICS: Chest x-ray this morning revealed small bilateral pleural effusions with bibasilar int erstitial opacities. INDWELLINGS: Trach, PEG, Knapp, peripheral IV. ANTIMICROBIALS: The patient is on: 1. IV vancomycin. 2. Cefepime day #5. PHYSICAL EXAMINATION: GENERAL: Chronically ill-appearing, middle-aged man who is lying comfortably in bed. HEENT: Head atraumatic, normocephalic. Sclerae anicteric. Buccal mucosa dry. NECK: Supple, tracheostomy present. CHEST: Rise symmetrical. Breath sounds diminished to bases. HEART: S1, S2. ABDOMEN: Soft. Bowel tones present. EXTREMITIES: Without cyanosis. Bilateral trace edema. ASSESSMENT: 1. Sepsis, resolving. 2. Enterococcal urinary tract infection. 3. Pneumonia. 4. Respiratory failure, chronic. 5. History of brainstem glioma status post chemotherapy. 6. Seizure disorder. 7. Hyponatremia. The patient remains stable. Continue present care, antibiotics. Follow recommendations of consult ants. Dictated By: ROSANGELA CARDONA ORNAMENTAL METAL ERECTOR for QUINTIN DOMÍNGUEZ/NTS Conf#: [id number] DID#: [id number]
--- NOTE | 2016-10-14 12:09 | RADRPT ---
PROCEDURE: XR Chest. CLINICAL INDICATION: Shortness of breath. TECHNIQUE: Single frontal view. COMPARISON: 10/14/2016. 0607 hours. FINDINGS: The tracheostomy tube and right-sided SIGNAL FITTER shunt catheter once again noted. Bibasilar atelectasis or pulmonary edema is unchanged. The lungs are otherwise clear. The heart size is normal. There is no pleural effusion. There is no pneumothorax. IMPRESSION: 1. No change from the prior study done earlier the same day. RPTAT: QQ .Shaan Kirk MD, MD Date Time Electronically viewed and signed by .Shaan Kirk MD, MD on 10/14/2016 12:09 .R/
--- NOTE | 2016-10-14 13:46 | PN ---
Date/Time of Note Date/Time of Note DATE: 10/14/16 TIME: 13:42 Assessment/Plan VTE Prophylaxis VTE Prophylaxis Intervention: SCD's Lines/Catheters IV Catheter Type (from [facility]): Peripheral IV Urinary Cath still in place: Yes Reason Cath still needed: urinary retention Assessment/Plan Chief Complaint/Hosp Course Assessment/Plan: 51 yo male with a past medical history of CVA, brainstem glioma with trach/peg status, who [facility] 1. Encephalopathy - neurologic type - appears to be chronic? - Hx of brainstem glioma and OIL DISTRIBUTOR TENDER shunt. + seizures and severe hyponatremia as well - improving now. - monitor changes, f/o NSS and Neuro rec's. 2. Seizures - thought to be 2/2 to severe hyponatremia - slowly improving but still present. EEG showed: Abnormal study secondary to background slowing which could reflect presence of encephalopathy as well as presence of left frontal central sharps which may reflect presence of periodic lateralized epileptiform discharges and clearly, given the patient's history, are epileptogenic. - f/u consult neurology rec's - continue IV keppra, seizure precautions, prn ativan for overriding seizures - Vit B12, folate levels 3. Severe hyponatremia - SIADH vs other etiologies - pt has been receiving tolvaptan and IV NS - now hypernatremic this AM (122 -> 127 - - -> 150 -> 151) - monitor Na+ levels - free H2O, D5W IVF's per renal rec's. 4. Sepsis 2/2 to bilateral pneumonia - HCAP - on cefepime/vanc- appreciate ID - continue 5. Vent dependent respiratory failure - appreciate pulm, continue with vent - wean as tolerated 6. Anemia - chronic disease - monitor H/H 7. OIL DISTRIBUTOR TENDER shunt - monitor any acute changes 8. Transaminitis - monitor - 2/2 to sepsis 9. CVA - precautions - hold aspirin 10. GI ppx - protonix 11. DVT ppx - scds as per clinical course. monitor labs Critical care time spent with pt care today = 40 min. Problems: Subjective 24 Hr Interval Summary Free Text/Dictation Pt more alert today, family meeting was held today as well. Exam/Review of Systems Vital Signs Vitals Vital Signs Date Time Temp Pulse Resp B/P Pulse Ox O2 Delivery O2 Flow Rate FiO2 10/14/16 13:00 110 17 135/90 98 Mechanical Ventilator 10/14/16 12:00 98.6 10/14/16 11:18 40 Intake and Output 10/13/16 10/13/16 10/14/16 15:00 23:00 07:00 Intake Total 490 ml 1310 ml 1310 ml Output Total 1610 ml 1630 ml 1675 ml Balance -1120 ml -320 ml -365 ml Exam Gen Octavia: more alert today HEENT: NC/AT, PERRLA, trach NECK: trached, no secretions noted THORAX: symmetrical, no obvious deformities CV: S1S2, RRR, no M/G/R Lungs: less bilateral rhonchi with end expiratory wheezing noted, no crackles Abd: soft, NT/ND, +BS, no rebound, no guarding, neg HSM, peg site C/D/I EXT:trace bilateral lower extremity edema, no ecchymosis, no clubbing, muscle wasting noted Neuro: more alert Psych: cannot asses Skin: decreased skin turgor Results Result Diagram: 10/14/1670410/14/16 0705 Results 24 hrs Laboratory Tests Test 10/14/16 07:05 10/14/16 11:00 Alanine Aminotransferase (ALT/SGPT) 45 Albumin 2.7 L Albumin/Globulin Ratio 1.00 Alkaline Phosphatase 152 H Anion Gap 13 Aspartate Amino Transf (AST/SGOT) 26 Basophils # 0.1 Basophils % 0.6 Blood Morphology Comment Blood Urea Nitrogen 3 L Calcium Level 8.6 Carbon Dioxide Level 30 Chloride Level 111 H Creatinine 0.27 L Direct Bilirubin 0.00 Eosinophils # 0.1 Eosinophils % 0.8 Globulin 2.70 Glucose Level 252 #H Hematocrit 31.3 L Hemoglobin 10.6 L Indirect Bilirubin 0.3 Lymphocytes # 0.8 Lymphocytes % 9.1 L Magnesium Level 1.9 Mean Corpuscular Hemoglobin 31.8 Mean Corpuscular Hemoglobin Concent 34.0 Mean Corpuscular Volume 93.6 Mean Platelet Volume 6.1 L Monocytes # 0.9 Monocytes % 9.6 Neutrophils # 7.2 Neutrophils % 79.9 H Nucleated Red Blood Cells # 0.0 Nucleated Red Blood Cells % 0.0 Phosphorus Level 2.8 Platelet Count 228 Potassium Level 3.0 L Red Blood Count 3.35 L Red Cell Distribution Width 16.5 H Sodium Level 151 H Total Bilirubin 0.3 Total Protein 5.4 L Vancomycin Level Trough 18.0 White Blood Count 9.0 # Lab Scanned Report REFERENCE LAB Medications Medications Current Medications Sodium Chloride (NS) 1,000 ml @ 75 mls/hr [id number] IV Last administered on 10/12 20:05; Admin Dose 75 MLS/HR; Start 10/10/16 at 13:49; Status Future Hold Ondansetron HCl (Zofran Inj) 4 mg Q6H PRN IV NAUSEA AND/OR VOMITING; Start 07/16 at 14:00 Nitroglycerin (Nitroglycerin (Sl Tab) 0.4 Mg) 1 tab Q5M PRN SL CHEST PAIN; Start 10/10/16 at 14:00 Acetaminophen (Tylenol Supp) 650 mg Q4H PRN [place] PAIN LEVEL 1-3 OR FEVER; Start 10/10/16 at 14:00 Morphine Sulfate (morphine) 2 mg Q4H PRN IV PAIN LEVEL 7-10; Start 10/10/16 at 14:00 Lorazepam (Ativan) 1 mg Q2H PRN IV ANXIETY Last administered on 10/13/16 04:03 ; Admin Dose 1 MG; Start 10/10/16 at 14:00 Docusate Sodium (Colace) 100 mg Q12H PRN PO CONSTIPATION; Start 10/10/16 at 14: 00 Pantoprazole 40 mg 40 mg DAILY@06 IV Last administered on 10/14/16 05:23; Admin Dose 40 MG; Start 10/11/16 at 06:00 Levetiracetam 1000 mg/Sodium Chloride 110 ml @ 440 mls/hr Q12 IVPB Last administered on 10/14/16 08:32; Admin Dose 440 MLS/HR; Start 10/10/16 at 14:00 Cefepime HCl (Maxipime 1gm/50 ml (Pmx)) 50 ml @ 100 mls/hr Q12 IVPB Last administered on 10/14/16 08:32; Admin Dose 100 MLS/HR; Start 10/10/16 at 21:00 Hydralazine HCl 10 mg 10 mg Q6H PRN IV ELEVATED BLOOD PRESSURE Last administered on 10/14/16 06:25; Admin Dose 10 MG; Start 10/10/16 at 19:00 Potassium Chloride/Dextrose (D5W + KCl 20 Meq) 1,000 ml @ 100 mls/hr Q10H IV Last administered on 10/14/16 04:43; Admin Dose 100 MLS/HR; Start 10/13/16 at 08:00 Desmopressin Acetate 0.2 mg 0.2 mg TID PO Last administered on 10/14/16 11:05 ; Admin Dose 0.2 MG; Start 10/14/16 at 10:30 Vancomycin HCl/ Sodium Chloride (Vancocin/NS) 250 ml @ 83.333 mls/ hr Q12H IVPB ; Start 10/14/16 at 20:00 FAUSTO CHOU Oct 14, 2016 13:46
--- NOTE | 2016-10-14 14:40 | PN ---
DATE: 10/14/2016 PALLIATIVE CARE FAMILY CONFERENCE: Family conference is done with patient's and cousin, ____ from social work service. The conversation began with trying to obtain a past medical history on Ruby rodríguez. Apparently he does have a history of brain tumor, status post resection, status post chemothe rapy and radiation treatments. This all began in 2010, the last intervention he had was in 2016. W isac states he has been followed by [facility]. He had some type of neurological/respiratory event that occurred within the last 3 months, required intubation and subsequently trach and placement of a G-tube. Up until that time, states that he was functioning and communicating normally up un til that point. Since that time, he has been making eye gestures only and occasionally squeezing he r hand. She states that he does understand her when they communicate. The conversation turned to h is current medical history which we reviewed, sepsis, pneumonia, renal insufficiency, altered mental status and hyponatremia with fluid and electrolyte abnormalities and answered her questions, some q uestions we do not have the answer to and we promised we would follow up on that. states that she is the primary decision maker. There is a son that she consults with. There are 2 other childr en and multiple other brothers and sisters. The patient's sisters are on their way from out of town, should arrive tomorrow. Patient is a DO NOT RESUSCITATE. We decided at that time not to address a ny further changes in the level of care that he is receiving. I will continue to support her and pablo sainz. At this time, general consensus is that he is improving. Dictated By: MARY VILLALPANDO MD, LP/NTS Conf#: [id number] DID#: [id number]
[2016-10-14] MEDS: VANCOMYCIN 1.25 GM in SOD CHLORIDE 0.9% 250 ML IVPB SCH (20:13)
[2016-10-14] MEDS: IPRATROPIUM (HFA) 12.9 GM INHALER INH PRN (20:42)
[2016-10-14] MEDS: ALBUTEROL HFA 8 GM INHALER INH PRN (20:42)
[2016-10-15] VITALS (38 sets, daily range): BP systolic 112–172; BP diastolic 74–116; PULSE 90–116; RESP 14–36
[2016-10-15] MEDS: D5W + KCL 20 MEQ 1,000 ML IV SCH ×3 (00:03→20:00)
[2016-10-15] MEDS: IPRATROPIUM (HFA) 12.9 GM INHALER INH PRN ×2 (05:11→20:43)
[2016-10-15] MEDS: ALBUTEROL HFA 8 GM INHALER INH PRN ×2 (05:12→20:43)
[2016-10-15] MEDS: PANTOPRAZOLE 40 MG INJ IV SCH (06:15)
[2016-10-15 06:37] LABS: BASOPHILS % 0.2 % (0.0-2.0); EOSINOPHILS # 0.2 10^3/ul (0.0-0.5); EOSINOPHILS % 1.8 % (0.0-7.0); HEMATOCRIT 28.6 % (42.0-52.0); HEMOGLOBIN 9.6 g/dl (14.0-18.0); LYMPHOCYTES # 0.5 10^3/ul (0.8-2.9); LYMPHOCYTES % 5.5 % (15.0-51.0); MEAN CORPUSCULAR HEMOGLOBIN 31.8 pg (29.0-33.0); MEAN CORPUSCULAR HGB CONC 33.7 g/dl (32.0-37.0); MEAN CORPUSCULAR VOLUME 94.3 fl (82.0-101.0); MONOCYTE # 0.6 10^3/ul (0.3-0.9); MONOCYTES % 7.7 % (0.0-11.0); NEUTROPHIL # 7.1 10^3/ul (1.6-7.5); NEUTROPHILS % 84.8 % (39.0-77.0); PLATELET COUNT 180 10^3/UL (140-440); RED BLOOD COUNT 3.03 10^6/ul (4.70-6.10); RED CELL DISTRIBUTION WIDTH 16.3 % (11.5-14.5); UNCORRECTED WBC 8.4 10^3/ul (4.8-10.8); WHITE BLOOD COUNT 8.4 10^3/ul (4.8-10.8)
[2016-10-15 06:43] LABS: POTASSIUM 3.4 mmol/L (3.5-5.1)
[2016-10-15 06:46] LABS: CREATININE 0.25 mg/dl (0.61-1.24)
[2016-10-15 06:47] LABS: CALCIUM 8.3 mg/dl (8.4-10.2)
[2016-10-15 06:49] LABS: CONDITION 1; LH ANALYZER COMMENTS 1
[2016-10-15] MEDS: VANCOMYCIN 1.25 GM in SOD CHLORIDE 0.9% 250 ML IVPB SCH ×2 (08:04→20:36)
[2016-10-15] MEDS: LEVETIRACETAM IV 1,000 MG in SOD CHLORIDE 0.9% 100 ML IVPB SCH ×2 (08:04→20:06)
[2016-10-15] MEDS: CEFEPIME 1GM/50 ML (PMX) 50 ML IVPB SCH ×2 (08:09→20:08)
--- NOTE | 2016-10-15 08:22 | CONS ---
Date/Time of Note Date/Time of Note DATE: 10/15/16 TIME: 08:18 Assessment/Plan Assessment/Plan Additional Assessment/Plan Ventilator settings; assist control of 16, tidal volume 500, PEEP of 5, 35% FiO2. Assessment and recommendations; 1. Patient admitted for UTI with sepsis; clinically improved. 2. Mild hypokalemia. 3. Patient is having high blood sugar readings in the high 200s. 4. History of severe anoxic encephalopathy. 5. Respiratory failure. 6. Status post a MANAGER ADVERTISING shunt. 7. Hypernatremia, responding well to desmopressin. Likely indicative of underlying diabetes insipidus. 8. History of emesis, patient's acute feeding currently on hold. Abdomen examination is totally soft. Replace potassium. Add long-acting insulin for better glycemic control. Continue current ventilator settings, antibiotics. Monitor for any further emesis. Prognosis remains poor. Consultation Date/Type/Reason Admit Date/Time Oct 10, 2016 at 13:53 Initial Consult Date 10/10/16 Type of Consultation: Pulmonary/critical care Referring Provider: MADDY HOPKINS MD 24 HR Interval Summary Free Text/Dictation Patient condition remains unchanged. Remains completely unresponsive. However the patient did have an episode of emesis this morning has remained hemodynamically stable. General examination; middle aged man, on ventilator via tracheostomy, unresponsive. Exam/Review of Systems Vital Signs Vitals Vital Signs Date Time Temp Pulse Resp B/P Pulse Ox O2 Delivery O2 Flow Rate FiO2 10/15/16 06:15 102 16 148/93 91 Mechanical Ventilator 10/15/16 05:33 35 10/15/16 04:00 98.0 Intake and Output 10/14/16 10/14/16 10/15/16 15:00 23:00 07:00 Intake Total 1700 ml 800 ml 1530 ml Output Total 625 ml 298 ml 333 ml Balance 1075 ml 502 ml 1197 ml Exam H EENT examination; supple neck, no JVD. No lymphadenopathy. Tracheostomy in place with clean insertion site. Pupils are midsize and reactive to light. No neck masses, no thyromegaly. Chest examination; clear to auscultation. S1-S2 audible, no murmurs. Regular rhythm. Abdomen examination; soft, nondistended, no organomegaly, bowel sounds audible. Given placed. With clean insertion site. Extremity examination; no peripheral edema. 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 Results Result Diagram: 10/15/16 0605 10/15/16 0605 Results 24 hrs Laboratory Tests Test 10/14/16 11:00 10/15/16 06:05 Lab Scanned Report REFERENCE LAB Anion Gap 8 Basophils # 0.0 Basophils % 0.2 Blood Morphology Comment Blood Urea Nitrogen 6 L Calcium Level 8.3 L Carbon Dioxide Level 31 Chloride Level 104 Creatinine 0.25 L Eosinophils # 0.2 Eosinophils % 1.8 Glucose Level 272 H Hematocrit 28.6 L Hemoglobin 9.6 L Lymphocytes # 0.5 L Lymphocytes % 5.5 L Mean Corpuscular Hemoglobin 31.8 Mean Corpuscular Hemoglobin Concent 33.7 Mean Corpuscular Volume 94.3 Mean Platelet Volume 6.0 L Monocytes # 0.6 Monocytes % 7.7 Neutrophils # 7.1 Neutrophils % 84.8 H Nucleated Red Blood Cells # 0.0 Nucleated Red Blood Cells % 0.0 Platelet Count 180 # Potassium Level 3.4 L Red Blood Count 3.03 L Red Cell Distribution Width 16.3 H Sodium Level 140 White Blood Count 8.4 Medications Medications Current Medications Sodium Chloride (NS) 1,000 ml @ 75 mls/hr [id number] IV Last administered on 10/12 20:05; Admin Dose 75 MLS/HR; Start 10/10/16 at 13:49; Status Future Hold Ondansetron HCl (Zofran Inj) 4 mg Q6H PRN IV NAUSEA AND/OR VOMITING; Start 07/16 at 14:00 Nitroglycerin (Nitroglycerin (Sl Tab) 0.4 Mg) 1 tab Q5M PRN SL CHEST PAIN; Start 10/10/16 at 14:00 Acetaminophen (Tylenol Supp) 650 mg Q4H PRN [place] PAIN LEVEL 1-3 OR FEVER; Start 10/10/16 at 14:00 Morphine Sulfate (morphine) 2 mg Q4H PRN IV PAIN LEVEL 7-10; Start 10/10/16 at 14:00 Lorazepam (Ativan) 1 mg Q2H PRN IV ANXIETY Last administered on 10/13/16 04:03 ; Admin Dose 1 MG; Start 10/10/16 at 14:00 Docusate Sodium (Colace) 100 mg Q12H PRN PO CONSTIPATION; Start 10/10/16 at 14: 00 Pantoprazole 40 mg 40 mg DAILY@06 IV Last administered on 10/15/16 06:15; Admin Dose 40 MG; Start 10/11/16 at 06:00 Levetiracetam 1000 mg/Sodium Chloride 110 ml @ 440 mls/hr Q12 IVPB Last administered on 10/15/16 08:04; Admin Dose 440 MLS/HR; Start 10/10/16 at 14:00 Cefepime HCl (Maxipime 1gm/50 ml (Pmx)) 50 ml @ 100 mls/hr Q12 IVPB Last administered on 10/15/16 08:09; Admin Dose 100 MLS/HR; Start 10/10/16 at 21:00 Hydralazine HCl 10 mg 10 mg Q6H PRN IV ELEVATED BLOOD PRESSURE Last administered on 10/14/16 18:36; Admin Dose 10 MG; Start 10/10/16 at 19:00 Potassium Chloride/Dextrose (D5W + KCl 20 Meq) 1,000 ml @ 100 mls/hr Q10H IV Last administered on 10/15/16 00:03; Admin Dose 100 MLS/HR; Start 10/13/16 at 08:00 Desmopressin Acetate 0.2 mg 0.2 mg TID PO Last administered on 10/14/16 21:00 ; Admin Dose 0.2 MG; Start 10/14/16 at 10:30 Vancomycin HCl/ Sodium Chloride (Vancocin/NS) 250 ml @ 83.333 mls/ hr Q12H IVPB Last administered on 10/15/16 08:04; Admin Dose 83.333 MLS/HR; Start at 20:00 JUANA DE LEÓN Oct 15, 2016 08:22
[2016-10-15] MEDS ORDERED: POTASSIUM CHLORIDE 250 ML IVPB ONE (08:30)
--- NOTE | 2016-10-15 08:33 | CONS ---
Date/Time of Note Date/Time of Note DATE: 10/15/16 TIME: 08:31 Assessment/Plan Assessment/Plan Additional Assessment/Plan 1. Severe hyponatremia with a sodium of 119, possibly acute on chronic hyponatremia versus acute severe hyponatremia.- pt went from hyponatremia to hypernatremia with treatment with 3% saline and one dose of tolvaptan - then Improved to normal today wtih D5W IVF and DDAVP 0.2mg PO x2 dose 2. Seizures secondary to severe hyponatremia. 3. Sepsis secondary to bilateral pneumonia. 4. Ventilator-dependent respiratory failure, status post tracheostomy, on vent. 5. History of a previous brain tumor, had surgery. Currently, status post ventriculoperitoneal shunt in place. 6. History of a previous cerebellar cerebrovascular accident. PLAN: pt received 3 % saline and tolvaptan one dose- went into polyuria, Na went from hyponatremia to hypernatremia- now improved to normal with D5W IVF and 2 dose of DDAVP 0.2mg continue D5 W with KCl at 50 cc/hr ventilator care as per pulmonary will follow up Consultation Date/Type/Reason Admit Date/Time Oct 10, 2016 at 13:53 Initial Consult Date 10/10/16 Type of Consultation: NEPHROLOGY Reason for Consultation Hyponatremia to Hypernatremia Referring Provider: MADDY HOPKINS MD 24 HR Interval Summary Free Text/Dictation Urine output slowed down to 1.45 liter, Na improved to 140,BP stable Exam/Review of Systems Vital Signs Vitals Vital Signs Date Time Temp Pulse Resp B/P Pulse Ox O2 Delivery O2 Flow Rate FiO2 10/15/16 06:15 102 16 148/93 91 Mechanical Ventilator 10/15/16 05:33 35 10/15/16 04:00 98.0 Intake and Output 10/14/16 10/14/16 10/15/16 14:59 22:59 06:59 Intake Total 1700 ml 930 ml 1530 ml Output Total 785 ml 308 ml 363 ml Balance 915 ml 622 ml 1167 ml Results Result Diagram: 10/15/16 0605 10/15/16 0605 Results 24 hrs Laboratory Tests Test 10/14/16 11:00 10/15/16 06:05 10/15/16 08:19 Lab Scanned Report REFERENCE LAB Anion Gap 8 Basophils # 0.0 Basophils % 0.2 Blood Morphology Comment Blood Urea Nitrogen 6 L Calcium Level 8.3 L Carbon Dioxide Level 31 Chloride Level 104 Creatinine 0.25 L Eosinophils # 0.2 Eosinophils % 1.8 Glucose Level 272 H Hematocrit 28.6 L Hemoglobin 9.6 L Lymphocytes # 0.5 L Lymphocytes % 5.5 L Mean Corpuscular Hemoglobin 31.8 Mean Corpuscular Hemoglobin Concent 33.7 Mean Corpuscular Volume 94.3 Mean Platelet Volume 6.0 L Monocytes # 0.6 Monocytes % 7.7 Neutrophils # 7.1 Neutrophils % 84.8 H Nucleated Red Blood Cells # 0.0 Nucleated Red Blood Cells % 0.0 Platelet Count 180 # Potassium Level 3.4 L Red Blood Count 3.03 L Red Cell Distribution Width 16.3 H Sodium Level 140 White Blood Count 8.4 Bedside Glucose 253 H Medications Medications Current Medications Sodium Chloride (NS) 1,000 ml @ 75 mls/hr [id number] IV Last administered on 10/12 20:05; Admin Dose 75 MLS/HR; Start 10/10/16 at 13:49; Status Future Hold Ondansetron HCl (Zofran Inj) 4 mg Q6H PRN IV NAUSEA AND/OR VOMITING; Start 07/16 at 14:00 Nitroglycerin (Nitroglycerin (Sl Tab) 0.4 Mg) 1 tab Q5M PRN SL CHEST PAIN; Start 10/10/16 at 14:00 Acetaminophen (Tylenol Supp) 650 mg Q4H PRN [place] PAIN LEVEL 1-3 OR FEVER; Start 10/10/16 at 14:00 Morphine Sulfate (morphine) 2 mg Q4H PRN IV PAIN LEVEL 7-10; Start 10/10/16 at 14:00 Lorazepam (Ativan) 1 mg Q2H PRN IV ANXIETY Last administered on 10/13/16 04:03 ; Admin Dose 1 MG; Start 10/10/16 at 14:00 Docusate Sodium (Colace) 100 mg Q12H PRN PO CONSTIPATION; Start 10/10/16 at 14: 00 Pantoprazole 40 mg 40 mg DAILY@06 IV Last administered on 10/15/16 06:15; Admin Dose 40 MG; Start 10/11/16 at 06:00 Levetiracetam 1000 mg/Sodium Chloride 110 ml @ 440 mls/hr Q12 IVPB Last administered on 10/15/16 08:04; Admin Dose 440 MLS/HR; Start 10/10/16 at 14:00 Cefepime HCl (Maxipime 1gm/50 ml (Pmx)) 50 ml @ 100 mls/hr Q12 IVPB Last administered on 10/15/16 08:09; Admin Dose 100 MLS/HR; Start 10/10/16 at 21:00 Hydralazine HCl 10 mg 10 mg Q6H PRN IV ELEVATED BLOOD PRESSURE Last administered on 10/14/16 18:36; Admin Dose 10 MG; Start 10/10/16 at 19:00 Potassium Chloride/Dextrose (D5W + KCl 20 Meq) 1,000 ml @ 100 mls/hr Q10H IV Last administered on 10/15/16 00:03; Admin Dose 100 MLS/HR; Start 10/13/16 at 08:00 Desmopressin Acetate 0.2 mg 0.2 mg TID PO Last administered on 10/14/16 21:00 ; Admin Dose 0.2 MG; Start 10/14/16 at 10:30 Vancomycin HCl 1.25 gm/Sodium Chloride 250 ml @ 83.333 mls/ hr Q12H IVPB Last administered on 10/15/16 08:04; Admin Dose 83.333 MLS/HR; Start 10/14/16 at 20: 00 Potassium Chloride (KCl 40 MEQ/250 ML NS) 250 ml @ 62.5 mls/hr ONCE ONCE IVPB ; Start 10/15/16 at 08:30; Stop 10/15/16 at 12:29 Insulin Human NPH (Humulin N) 19 unit BID SC ; Start 10/15/16 at 09:00 LISSA PARK MD Oct 15, 2016 08:33
[2016-10-15] MEDS: DESMOPRESSIN 0.1 MG TAB PO SCH ×3 (09:28→20:27)
[2016-10-15] MEDS: NPH, HUMAN INSULIN ISOPHANE 3ML VIAL SC SCH ×2 (09:43→21:00)
--- NOTE | 2016-10-15 11:40 | CONS ---
Date/Time of Note Date/Time of Note DATE: 10/15/16 TIME: 11:39 Assessment/Plan Assessment/Plan Chief Complaint/Hosp Course SUBJECTIVE: No acute changes. The patient is lying comfortably in bed, nonverbal, noncommunicative. He is afebrile. INDWELLINGS: Trach, PEG, Knapp, peripheral IV. ANTIMICROBIALS: The patient is on: 1. IV vancomycin. 2. Cefepime day #6. PHYSICAL EXAMINATION: GENERAL: Chronically ill-appearing, middle-aged man who is lying comfortably in bed. HEENT: Head atraumatic, normocephalic. Sclerae anicteric. Buccal mucosa dry. NECK: Supple, tracheostomy present. CHEST: Rise symmetrical. Breath sounds diminished to bases. HEART: S1, S2. ABDOMEN: Soft. Bowel tones present. EXTREMITIES: Without cyanosis. Bilateral trace edema. ASSESSMENT: 1. Sepsis, resolving. 2. Enterococcal urinary tract infection. 3. Pneumonia. 4. Respiratory failure, chronic. 5. History of brainstem glioma status post chemotherapy. 6. Seizure disorder. 7. Hyponatremia. Plan: The patient remains unchanged. Continue present care, antibiotics. Follow recommendations of consultants. DW staff Problems: Consultation Date/Type/Reason Admit Date/Time Oct 10, 2016 at 13:53 Initial Consult Date 10/10/16 Type of Consultation: ID Referring Provider: MADDY HOPKINS MD Exam/Review of Systems Vital Signs Vitals Vital Signs Date Time Temp Pulse Resp B/P Pulse Ox O2 Delivery O2 Flow Rate FiO2 10/15/16 11:10 104 15 100 35 10/15/16 06:15 148/93 Mechanical Ventilator 10/15/16 04:00 98.0 Intake and Output 10/14/16 10/14/16 10/15/16 15:00 23:00 07:00 Intake Total 1700 ml 800 ml 1530 ml Output Total 625 ml 298 ml 333 ml Balance 1075 ml 502 ml 1197 ml Results Result Diagram: 10/15/16 0610/15/16 06 Results 24 hrs Laboratory Tests Test 10/15/16 06:05 10/15/16 08:19 Anion Gap 8 Basophils # 0.0 Basophils % 0.2 Blood Morphology Comment Blood Urea Nitrogen 6 L Calcium Level 8.3 L Carbon Dioxide Level 31 Chloride Level 104 Creatinine 0.25 L Eosinophils # 0.2 Eosinophils % 1.8 Glucose Level 272 H Hematocrit 28.6 L Hemoglobin 9.6 L Lymphocytes # 0.5 L Lymphocytes % 5.5 L Mean Corpuscular Hemoglobin 31.8 Mean Corpuscular Hemoglobin Concent 33.7 Mean Corpuscular Volume 94.3 Mean Platelet Volume 6.0 L Monocytes # 0.6 Monocytes % 7.7 Neutrophils # 7.1 Neutrophils % 84.8 H Nucleated Red Blood Cells # 0.0 Nucleated Red Blood Cells % 0.0 Platelet Count 180 # Potassium Level 3.4 L Red Blood Count 3.03 L Red Cell Distribution Width 16.3 H Sodium Level 140 White Blood Count 8.4 Bedside Glucose 253 H Medications Medications Current Medications Sodium Chloride (NS) 1,000 ml @ 75 mls/hr [id number] IV Last administered on 10/12 20:05; Admin Dose 75 MLS/HR; Start 10/10/16 at 13:49; Status Future Hold Ondansetron HCl (Zofran Inj) 4 mg Q6H PRN IV NAUSEA AND/OR VOMITING; Start 07/16 at 14:00 Nitroglycerin (Nitroglycerin (Sl Tab) 0.4 Mg) 1 tab Q5M PRN SL CHEST PAIN; Start 10/10/16 at 14:00 Acetaminophen (Tylenol Supp) 650 mg Q4H PRN [place] PAIN LEVEL 1-3 OR FEVER; Start 10/10/16 at 14:00 Morphine Sulfate (morphine) 2 mg Q4H PRN IV PAIN LEVEL 7-10; Start 10/10/16 at 14:00 Lorazepam (Ativan) 1 mg Q2H PRN IV ANXIETY Last administered on 10/13/16 04:03 ; Admin Dose 1 MG; Start 10/10/16 at 14:00 Docusate Sodium (Colace) 100 mg Q12H PRN PO CONSTIPATION; Start 10/10/16 at 14: 00 Pantoprazole 40 mg 40 mg DAILY@06 IV Last administered on 10/15/16 06:15; Admin Dose 40 MG; Start 10/11/16 at 06:00 Levetiracetam 1000 mg/Sodium Chloride 110 ml @ 440 mls/hr Q12 IVPB Last administered on 10/15/16 08:04; Admin Dose 440 MLS/HR; Start 10/10/16 at 14:00 Cefepime HCl (Maxipime 1gm/50 ml (Pmx)) 50 ml @ 100 mls/hr Q12 IVPB Last administered on 10/15/16 08:09; Admin Dose 100 MLS/HR; Start 10/10/16 at 21:00 Hydralazine HCl 10 mg 10 mg Q6H PRN IV ELEVATED BLOOD PRESSURE Last administered on 10/14/16 18:36; Admin Dose 10 MG; Start 10/10/16 at 19:00 Potassium Chloride/Dextrose (D5W + KCl 20 Meq) 1,000 ml @ 100 mls/hr Q10H IV Last administered on 10/15/16 00:03; Admin Dose 100 MLS/HR; Start 10/13/16 at 08:00 Desmopressin Acetate 0.2 mg 0.2 mg TID PO Last administered on 10/15/16 09:28 ; Admin Dose 0.2 MG; Start 10/14/16 at 10:30 Vancomycin HCl 1.25 gm/Sodium Chloride 250 ml @ 83.333 mls/ hr Q12H IVPB Last administered on 10/15/16 08:04; Admin Dose 83.333 MLS/HR; Start 10/14/16 at 20: 00 Potassium Chloride (KCl 40 MEQ/250 ML NS) 250 ml @ 62.5 mls/hr ONCE ONCE IVPB Last administered on 10/15/16 09:27; Admin Dose 62.5 MLS/HR; Start 10/15/16 at 08:30; Stop 10/15/16 at 12:29 Insulin Human NPH (Humulin N) 19 unit BID SC Last administered on 10/15/16 09: 43; Admin Dose 19 UNIT; Start 10/15/16 at 09:00 Diagnostic Test (Pha) (Accucheck) 1 ea Q8 XX ; Start 10/15/16 at 14:00 Miscellaneous Information (*Rx Drug Level Order Reminder*) VANCO TR LEVEL PRIOR... ONCE ONCE XX ; Start 10/16/16 at 07:00; Stop 10/16/16 at 07:01 ROSANGELA CARDONA NP Oct 15, 2016 11:40
--- NOTE | 2016-10-15 11:51 | PN ---
Date/Time of Note Date/Time of Note DATE: 10/15/16 TIME: 11:47 Assessment/Plan VTE Prophylaxis VTE Prophylaxis Intervention: SCD's Lines/Catheters IV Catheter Type (from Nrs): Peripheral IV Urinary Cath still in place: Yes Reason Cath still needed: urinary retention Assessment/Plan Chief Complaint/Hosp Course Assessment/Plan: 51 yo male with a past medical history of CVA, brainstem glioma with trach/peg status, who came via ambulance for seizure like activity from alf facility. 1. Encephalopathy - neurologic type - appears to be chronic? - Hx of brainstem glioma and CELLULAR BIOLOGIST shunt. + seizures and severe hyponatremia as well - improving now. - monitor changes, f/o NSS and Neuro rec's. 2. Seizures - thought to be 2/2 to severe hyponatremia - slowly improving - Na+ levels nL today. EEG showed: Abnormal study secondary to background slowing which could reflect presence of encephalopathy as well as presence of left frontal central sharps which may reflect presence of periodic lateralized epileptiform discharges and clearly, given the patient's history, are epileptogenic. - f/u consult neurology rec's - continue IV keppra, seizure precautions, prn ativan for overriding seizures - Vit B12, folate levels 3. Severe hyponatremia - SIADH vs other etiologies - pt has been receiving tolvaptan, ddAVP, and IV NS - now nL levels today (122 -> 127 - - -> 150 -> 151 -> 140) - monitor Na+ levels - free H2O, D5W IVF's per renal rec's. 4. Sepsis - 2/2 to bilateral pneumonia (HCAP) + UTI (Enterococcus) - on cefepime /vanc- appreciate ID -continue current meds 5. Vent dependent respiratory failure - appreciate pulm, continue with vent via trach - monitor 6. Anemia - chronic disease - monitor H/H 7. CELLULAR BIOLOGIST shunt - monitor any acute changes 8. Transaminitis - monitor - 2/2 to sepsis 9. CVA - precautions - hold aspirin 10. GI ppx - protonix 11. DVT ppx - scds 12. emesis - holding tube feeds for now, increase anti-emetics. as per clinical course. monitor labs Critical care time spent with pt care today = 45 min. Problems: Subjective 24 Hr Interval Summary Free Text/Dictation Pt had emesis this AM, tube feeds held. Exam/Review of Systems Vital Signs Vitals Vital Signs Date Time Temp Pulse Resp B/P Pulse Ox O2 Delivery O2 Flow Rate FiO2 10/15/16 11:10 104 15 100 35 10/15/16 06:15 148/93 Mechanical Ventilator 10/15/16 04:00 98.0 Intake and Output 10/14/16 10/14/16 10/15/16 15:00 23:00 07:00 Intake Total 1700 ml 800 ml 1530 ml Output Total 625 ml 298 ml 333 ml Balance 1075 ml 502 ml 1197 ml Exam Gen Octavia: lying in bed HEENT: NC/AT, PERRLA, trach NECK: trached, no secretions noted THORAX: symmetrical, no obvious deformities CV: S1S2, RRR, no M/G/R Lungs: less bilateral rhonchi with end expiratory wheezing noted, no crackles Abd: soft, NT/ND, +BS, no rebound, no guarding, neg HSM, peg site C/D/I EXT:trace bilateral lower extremity edema, no ecchymosis, no clubbing, muscle wasting noted Neuro: unable to fully assess today Psych: cannot asses Skin: decreased skin turgor Results Result Diagram: 10/15/1660410/15/16604 Results 24 hrs Laboratory Tests Test 10/15/16 06:05 10/15/16 08:19 Anion Gap 8 Basophils # 0.0 Basophils % 0.2 Blood Morphology Comment Blood Urea Nitrogen 6 L Calcium Level 8.3 L Carbon Dioxide Level 31 Chloride Level 104 Creatinine 0.25 L Eosinophils # 0.2 Eosinophils % 1.8 Glucose Level 272 H Hematocrit 28.6 L Hemoglobin 9.6 L Lymphocytes # 0.5 L Lymphocytes % 5.5 L Mean Corpuscular Hemoglobin 31.8 Mean Corpuscular Hemoglobin Concent 33.7 Mean Corpuscular Volume 94.3 Mean Platelet Volume 6.0 L Monocytes # 0.6 Monocytes % 7.7 Neutrophils # 7.1 Neutrophils % 84.8 H Nucleated Red Blood Cells # 0.0 Nucleated Red Blood Cells % 0.0 Platelet Count 180 # Potassium Level 3.4 L Red Blood Count 3.03 L Red Cell Distribution Width 16.3 H Sodium Level 140 White Blood Count 8.4 Bedside Glucose 253 H Medications Medications Current Medications Sodium Chloride (NS) 1,000 ml @ 75 mls/hr [id number] IV Last administered on 10/12 20:05; Admin Dose 75 MLS/HR; Start 10/10/16 at 13:49; Status Future Hold Ondansetron HCl (Zofran Inj) 4 mg Q6H PRN IV NAUSEA AND/OR VOMITING; Start 07/16 at 14:00 Nitroglycerin (Nitroglycerin (Sl Tab) 0.4 Mg) 1 tab Q5M PRN SL CHEST PAIN; Start 10/10/16 at 14:00 Acetaminophen (Tylenol Supp) 650 mg Q4H PRN [place] PAIN LEVEL 1-3 OR FEVER; Start 10/10/16 at 14:00 Morphine Sulfate (morphine) 2 mg Q4H PRN IV PAIN LEVEL 7-10; Start 10/10/16 at 14:00 Lorazepam (Ativan) 1 mg Q2H PRN IV ANXIETY Last administered on 10/13/16 04:03 ; Admin Dose 1 MG; Start 10/10/16 at 14:00 Docusate Sodium (Colace) 100 mg Q12H PRN PO CONSTIPATION; Start 10/10/16 at 14: 00 Pantoprazole 40 mg 40 mg DAILY@06 IV Last administered on 10/15/16 06:15; Admin Dose 40 MG; Start 10/11/16 at 06:00 Levetiracetam 1000 mg/Sodium Chloride 110 ml @ 440 mls/hr Q12 IVPB Last administered on 10/15/16 08:04; Admin Dose 440 MLS/HR; Start 10/10/16 at 14:00 Cefepime HCl (Maxipime 1gm/50 ml (Pmx)) 50 ml @ 100 mls/hr Q12 IVPB Last administered on 10/15/16 08:09; Admin Dose 100 MLS/HR; Start 10/10/16 at 21:00 Hydralazine HCl 10 mg 10 mg Q6H PRN IV ELEVATED BLOOD PRESSURE Last administered on 10/14/16 18:36; Admin Dose 10 MG; Start 10/10/16 at 19:00 Potassium Chloride/Dextrose (D5W + KCl 20 Meq) 1,000 ml @ 100 mls/hr Q10H IV Last administered on 10/15/16 00:03; Admin Dose 100 MLS/HR; Start 10/13/16 at 08:00 Desmopressin Acetate 0.2 mg 0.2 mg TID PO Last administered on 10/15/16 09:28 ; Admin Dose 0.2 MG; Start 10/14/16 at 10:30 Vancomycin HCl 1.25 gm/Sodium Chloride 250 ml @ 83.333 mls/ hr Q12H IVPB Last administered on 10/15/16 08:04; Admin Dose 83.333 MLS/HR; Start 10/14/16 at 20: 00 Potassium Chloride (KCl 40 MEQ/250 ML NS) 250 ml @ 62.5 mls/hr ONCE ONCE IVPB Last administered on 10/15/16 09:27; Admin Dose 62.5 MLS/HR; Start 10/15/16 at 08:30; Stop 10/15/16 at 12:29 Insulin Human NPH (Humulin N) 19 unit BID SC Last administered on 10/15/16 09: 43; Admin Dose 19 UNIT; Start 10/15/16 at 09:00 Diagnostic Test (Pha) (Accucheck) 1 ea Q8 XX ; Start 10/15/16 at 14:00 Miscellaneous Information (*Rx Drug Level Order Reminder*) VANCO TR LEVEL PRIOR... ONCE ONCE XX ; Start 10/16/16 at 07:00; Stop 10/16/16 at 07:01 Atorvastatin Calcium (Lipitor) 40 mg QHS GTB ; Start 10/15/16 at 21:00; Status UNV Benazepril HCl (Lotensin) 10 mg DAILY GTB ; Start 10/15/16 at 12:00; Status UNV Docusate Sodium (Colace Liquid Cup) 200 mg DAILY PRN GTB CONSTIPATION; Start at 12:00; Status UNV Ferrous Sulfate (Feosol Liquid Cup) 330 mg DAILY GTB ; Start 10/16/16 at 09:00; Status UNV Hydralazine HCl (Apresoline) 25 mg Q6H PRN GTB ELEVATED BLOOD PRESSURE; Start 10/15/16 at 12:00; Status UNV Metoprolol Tartrate (Lopressor) 25 mg BID GTB ; Start 10/15/16 at 12:00; Status UNV Mineral Oil (Fleet Mineral Oil Enema) 133 ml DAILY PRN [place] CONSTIPATION; Start 10/15/16 at 12:00; Status UNV Multivitamins Therapeutic (Theragran) 1 tab DAILY PO ; Start 10/15/16 at 12:00; Status UNV Potassium Chloride (KCl Liq (Ped)) 40 meq DAILY GTB ; Start 10/16/16 at 09:00; Status UNV Miscellaneous Information 16 unit BID SC ; Start 10/15/16 at 12:00; Status UNV FAUSTO CHOU Oct 15, 2016 11:51
[2016-10-15] MEDS ORDERED: NON-FORMULARY/PATIENT OWN MED (Protein Supplement (Promod) 30 ML) GTB SCH (12:00)
[2016-10-15] MEDS ORDERED: MINERAL OIL 133 ML ENEMA PR PRN (12:00)
[2016-10-15] MEDS: MULTIVITAMINS THERAPEUTIC TAB PO SCH (13:04)
[2016-10-15] MEDS: METOPROLOL 25 MG TAB GTB SCH ×2 (13:06→20:27)
[2016-10-15] MEDS: BENAZEPRIL 10 MG TAB GTB SCH (13:07)
[2016-10-15] MEDS: ONDANSETRON 4 MG INJ IV PRN ×2 (13:08→18:19)
[2016-10-15] MEDS: INSULIN DETEMIR [LEVEMIR] 3ML CART SC SCH ×2 (13:13→21:00)
[2016-10-15] MEDS: INSULIN ASPART [NOVOLOG] 3 ML PEN SC SCH ×3 (13:16→21:00)
[2016-10-15] MEDS ORDERED: ACCUCHECK XX SCH (14:00)
[2016-10-15] MEDS: hydrALAzine 20 MG INJ IV PRN (15:05)
[2016-10-15] MEDS: DOCUSATE SODIUM 10 MG/ML (10ML CUP) GTB PRN (18:10)
[2016-10-15] MEDS: ATORVASTATIN 40 MG TAB GTB SCH (20:27)
[2016-10-15] MEDS: LORAZEPAM 2 MG INJ IV PRN (20:27)
[2016-10-15] MEDS ORDERED: GLUCOSE GEL 15 GRAM TUBE PO PRN ×2 (21:30)
[2016-10-15] MEDS ORDERED: DEXTROSE 50% 50 ML SYRINGE IV PRN (21:30)
[2016-10-15] MEDS ORDERED: GLUCOSE GEL 15 GRAM TUBE BUCCAL PRN (21:30)
[2016-10-15] MEDS ORDERED: GLUCAGON 1 MG INJ IM PRN (21:30)
[2016-10-15] MEDS ORDERED: DEXTROSE 50% 50 ML SYRINGE IV ONE (21:30)
[2016-10-15] MEDS ORDERED: NPH, HUMAN INSULIN ISOPHANE 3ML VIAL SC ONE (22:00)
[2016-10-16] VITALS (26 sets, daily range): BP systolic 102–177; BP diastolic 61–92; PULSE 75–107; RESP 8–26
[2016-10-16] MEDS ORDERED: DEXTROSE 50% 50 ML SYRINGE IV ONE (01:00)
[2016-10-16] MEDS: INSULIN ASPART [NOVOLOG] 3 ML PEN SC SCH ×6 (01:00→21:00)
[2016-10-16] MEDS: DEXTROSE 50% 50 ML SYRINGE IV PRN ×4 (01:03→16:31)
[2016-10-16] MEDS: D5W + KCL 20 MEQ 1,000 ML IV SCH (02:35)
[2016-10-16] MEDS ORDERED: POTASSIUM CHLORIDE 20 MEQ in DEXTROSE 10% 1,000 ML IV SCH (05:00)
[2016-10-16] MEDS: IPRATROPIUM (HFA) 12.9 GM INHALER INH PRN (05:16)
[2016-10-16] MEDS: ALBUTEROL HFA 8 GM INHALER INH PRN (05:16)
[2016-10-16] MEDS: PANTOPRAZOLE 40 MG INJ IV SCH (05:50)
[2016-10-16 07:12] LABS: BASOPHILS % 0.6 % (0.0-2.0); EOSINOPHILS # 0.2 10^3/ul (0.0-0.5); EOSINOPHILS % 2.6 % (0.0-7.0); HEMATOCRIT 29.9 % (42.0-52.0); HEMOGLOBIN 10.1 g/dl (14.0-18.0); LYMPHOCYTES # 0.8 10^3/ul (0.8-2.9); LYMPHOCYTES % 10.4 % (15.0-51.0); MEAN CORPUSCULAR HEMOGLOBIN 31.9 pg (29.0-33.0); MEAN CORPUSCULAR HGB CONC 33.7 g/dl (32.0-37.0); MEAN CORPUSCULAR VOLUME 94.6 fl (82.0-101.0); MEAN PLATELET VOLUME 6.2 fl (7.4-10.4); MONOCYTE # 0.8 10^3/ul (0.3-0.9); MONOCYTES % 11.5 % (0.0-11.0); NEUTROPHIL # 5.6 10^3/ul (1.6-7.5); NEUTROPHILS % 74.9 % (39.0-77.0); PLATELET COUNT 195 10^3/UL (140-440); RED BLOOD COUNT 3.16 10^6/ul (4.70-6.10); RED CELL DISTRIBUTION WIDTH 16.8 % (11.5-14.5); UNCORRECTED WBC 7.4 10^3/ul (4.8-10.8); WHITE BLOOD COUNT 7.4 10^3/ul (4.8-10.8)
[2016-10-16 07:19] LABS: CONDITION 1; LH ANALYZER COMMENTS 1
[2016-10-16 07:39] LABS: CREATININE 0.26 mg/dl (0.61-1.24)
--- NOTE | 2016-10-16 08:11 | CONS ---
Date/Time of Note Date/Time of Note DATE: 10/16/16 TIME: 08:10 Assessment/Plan Assessment/Plan Additional Assessment/Plan 1. Severe hyponatremia with a sodium of 119, possibly acute on chronic hyponatremia versus acute severe hyponatremia.- pt went from hyponatremia to hypernatremia with treatment with 3% saline and one dose of tolvaptan - then Improved to normal today wtih D5W IVF and DDAVP 0.2mg PO x2 dose 10/15/16- on again Na dropped from 140 to 131 2. Seizures secondary to severe hyponatremia. 3. Sepsis secondary to bilateral pneumonia. 4. Ventilator-dependent respiratory failure, status post tracheostomy, on vent. 5. History of a previous brain tumor, had surgery. Currently, status post ventriculoperitoneal shunt in place. 6. History of a previous cerebellar cerebrovascular accident. PLAN: pt received 3 % saline and tolvaptan one dose- went into polyuria, Na went from hyponatremia to hypernatremia- now improved to normal with D5W IVF and 2 dose of DDAVP 0.2mg- again today 10/16- na dropped from 140 to 131- BP marginally low , afebrile, stop D10- start Tube feeding with diabetosource- will change IVF to 1/2 NS with 20 KCL at 50 cc/hr monitor Na, pt has acute on chronic hyponatremia ventilator care as per pulmonary will follow up Consultation Date/Type/Reason Admit Date/Time Oct 10, 2016 at 13:53 Initial Consult Date 10/10/16 Type of Consultation: NEPHROLOGY Reason for Consultation hyponatremia to hypernatremia Referring Provider: MADDY HOPKINS MD 24 HR Interval Summary Free Text/Dictation no acute events, BP stable,Had a episode of hypoglycemia, TF changed today,Na trending down Exam/Review of Systems Vital Signs Vitals Vital Signs Date Time Temp Pulse Resp B/P Pulse Ox O2 Delivery O2 Flow Rate FiO2 10/16/16 06:00 92 11 149/89 100 Mechanical Ventilator 10/16/16 05:25 35 10/16/16 04:00 100.1 Intake and Output 10/15/16 10/15/16 10/16/16 15:00 23:00 07:00 Intake Total 0 ml 660 ml 1000 ml Output Total 975 ml 875 ml 790 ml Balance -975 ml -215 ml 210 ml Exam GENERAL: The patient is currently on a ventilator, through tracheostomy. HEENT: Tracheostomy site is clear. LUNGS: Bilateral coarse breath sounds with bilateral basilar rales present and lower lobe rhonchi present. HEART: S1, S2, tachycardia, no murmur. ABDOMEN: Soft. G-tube in place. EXTREMITIES: No clubbing, cyanosis, or edema. The patient is very debilitated. PSYCHIATRIC: Not able to assess. NEUROLOGICAL: Not able to assess. , + steve catheter in place Results Result Diagram: 10/16/16 0655 10/16/16 0655 Results 24 hrs Laboratory Tests Test 10/15/16 08:19 10/15/16 13:03 10/15/16 18:07 10/15/16 21:18 Bedside Glucose 253 H 159 122 69 L Test 10/15/16 21:46 10/16/16 00:57 10/16/16 01:17 10/16/16 04:48 Bedside Glucose 132 69 L 128 60 L Test 10/16/16 05:13 10/16/16 06:55 Bedside Glucose 95 Anion Gap 8 Basophils # 0.0 Basophils % 0.6 Blood Morphology Comment Blood Urea Nitrogen 4 L Calcium Level 8.0 L Carbon Dioxide Level 32 H Chloride Level 95 L Creatinine 0.26 L Eosinophils # 0.2 Eosinophils % 2.6 Glucose Level 73 # Hematocrit 29.9 L Hemoglobin 10.1 L Lymphocytes # 0.8 Lymphocytes % 10.4 L Mean Corpuscular Hemoglobin 31.9 Mean Corpuscular Hemoglobin Concent 33.7 Mean Corpuscular Volume 94.6 Mean Platelet Volume 6.2 L Monocytes # 0.8 Monocytes % 11.5 H Neutrophils # 5.6 Neutrophils % 74.9 Nucleated Red Blood Cells # 0.0 Nucleated Red Blood Cells % 0.0 Platelet Count 195 Potassium Level 4.0 Red Blood Count 3.16 L Red Cell Distribution Width 16.8 H Sodium Level 131 L Vancomycin Level Trough 13.1 White Blood Count 7.4 Medications Medications Current Medications Sodium Chloride (NS) 1,000 ml @ 75 mls/hr [id number] IV Last administered on 10/12t 20:05; Admin Dose 75 MLS/HR; Start 10/10/16 at 13:49; Status Future Hold Ondansetron HCl (Zofran Inj) 4 mg Q6H PRN IV NAUSEA AND/OR VOMITING Last administered on 10/15/16 18:19; Admin Dose 4 MG; Start 10/10/16 at 14:00 Nitroglycerin (Nitroglycerin (Sl Tab) 0.4 Mg) 1 tab Q5M PRN SL CHEST PAIN; Start 10/10/16 at 14:00 Acetaminophen (Tylenol Supp) 650 mg Q4H PRN [place] PAIN LEVEL 1-3 OR FEVER; Start 10/10/16 at 14:00 Morphine Sulfate (morphine) 2 mg Q4H PRN IV PAIN LEVEL 7-10; Start 10/10/16 at 14:00 Lorazepam (Ativan) 1 mg Q2H PRN IV ANXIETY Last administered on 10/15/16 20:27 ; Admin Dose 1 MG; Start 10/10/16 at 14:00 Docusate Sodium 100 mg 100 mg Q12H PRN PO CONSTIPATION; Start 10/10/16 at 14:00 Levetiracetam 1000 mg/Sodium Chloride 110 ml @ 440 mls/hr Q12 IVPB Last administered on 10/15/16 20:06; Admin Dose 440 MLS/HR; Start 10/10/16 at 14:00 Cefepime HCl (Maxipime 1gm/50 ml (Pmx)) 50 ml @ 100 mls/hr Q12 IVPB Last administered on 10/15/16 20:08; Admin Dose 100 MLS/HR; Start 10/10/16 at 21:00 Hydralazine HCl (Apresoline) 10 mg Q6H PRN IV ELEVATED BLOOD PRESSURE Last administered on 10/15/16 15:05; Admin Dose 10 MG; Start 10/10/16 at 19:00 Desmopressin Acetate 0.2 mg 0.2 mg TID PO Last administered on 10/15/16 20:27 ; Admin Dose 0.2 MG; Start 10/14/16 at 10:30 Vancomycin HCl/ Sodium Chloride (Vancocin/NS) 250 ml @ 83.333 mls/ hr Q12H IVPB Last administered on 10/15/16 20:36; Admin Dose 83.333 MLS/HR; Start at 20:00 Insulin Human NPH (Humulin N) 19 unit BID SC Last administered on 2/16/17at 09: 43; Admin Dose 19 UNIT; Start 10/15/16 at 09:00 Atorvastatin Calcium (Lipitor) 40 mg QHS GTB Last administered on 10/15/16 20: 27; Admin Dose 40 MG; Start 10/15/16 at 21:00 Benazepril HCl (Lotensin) 10 mg DAILY GTB Last administered on 10/15/16 13:07 ; Admin Dose 10 MG; Start 10/15/16 at 12:00 Docusate Sodium (Colace Liquid Cup) 200 mg DAILY PRN GTB CONSTIPATION Last administered on 10/15/16 18:10; Admin Dose 200 MG; Start 10/15/16 at 12:00 Ferrous Sulfate (Feosol Liquid Cup) 330 mg DAILY GTB ; Start 10/16/16 at 09:00 Hydralazine HCl (Apresoline) 25 mg Q6H PRN GTB ELEVATED BLOOD PRESSURE; Start 10/15/16 at 12:00 Metoprolol Tartrate (Lopressor) 25 mg BID GTB Last administered on 10/15/16 20 :27; Admin Dose 25 MG; Start 10/15/16 at 12:00 Mineral Oil (Fleet Mineral Oil Enema) 133 ml DAILY PRN [place] CONSTIPATION Last administered on 10/16/16 03:54; Admin Dose 133 ML; Start 10/15/16 at 12:00 Multivitamins Therapeutic (Theragran) 1 tab DAILY PO Last administered on 13:04; Admin Dose 1 TAB; Start 10/15/16 at 12:00 Potassium Chloride (Potassium Chloride Pwd/Soln) 40 meq DAILY GTB ; Start at 09:00 Insulin Detemir (Levemir) 16 unit BID SC Last administered on 10/15/16 13:13; Admin Dose 16 UNIT; Start 10/15/16 at 12:00 Insulin Aspart (Novolog Insulin Pen) NOVOLOG *MILD* ALGORI... Q4 SC Last administered on 10/15/16 13:16; Admin Dose 1 UNIT; Start 10/15/16 at 13:00 Miscellaneous Information 1 ea NOTE XX ; Start 10/15/16 at 21:30 Glucose (Glutose) 15 gm Q15M PRN PO DECREASED GLUCOSE; Start 10/15/16 at 21:30 Glucose (Glutose) 22.5 gm Q15M PRN PO DECREASED GLUCOSE; Start 10/15/16 at 21: 30 Dextrose (D50w Syringe) 25 ml Q15M PRN IV DECREASED GLUCOSE Last administered on 10/16/16 04:51; Admin Dose 25 ML; Start 10/15/16 at 21:30 Dextrose (D50w Syringe) 50 ml Q15M PRN IV DECREASED GLUCOSE; Start 10/15/16 at 21:30 Glucagon (Glucagen) 1 mg Q15M PRN IM DECREASED GLUCOSE; Start 10/15/16 at 21:30 Glucose 15 gm 15 gm Q15M PRN BUCCAL DECREASED GLUCOSE; Start 10/15/16 at 21:30 Potassium Chloride/Dextrose (KCl/D10w) 1,010 ml @ 100 mls/hr Q10H6M IV Last administered on 10/16/16 06:15; Admin Dose 100 MLS/HR; Start 10/16/16 at 05:00 LISSA PARK MD Oct 16, 2016 08:11
--- NOTE | 2016-10-16 08:26 | CONS ---
Date/Time of Note Date/Time of Note DATE: 10/16/16 TIME: 08:23 Assessment/Plan Assessment/Plan Additional Assessment/Plan Ventilator settings; assist control of 14, tidal volume 500, PEEP of 5, 30% FiO2. Next Assessment recommendations; 1. Patient admitted for sepsis which is from UTI. 2. Chronic respiratory failure due to anoxic brain injury. Patient status post craniotomy. 3. Diabetes with hypoglycemia, patient's long-acting insulin on hold. Started on D5 drip. 4. Episodes of emesis yesterday with interval improvement, patient will be resumed on tube feeding . 5. Hyponatremia with interval improvement as well responding well to desmopressin. Continue current supportive care. Patient can be transferred to the telemetry unit. Overall prognosis remains poor. Consultation Date/Type/Reason Admit Date/Time Oct 10, 2016 at 13:53 Initial Consult Date 10/10/16 Type of Consultation: Pulmonary/critical care Referring Provider: MADDY HOPKINS MD 24 HR Interval Summary Free Text/Dictation Patient condition remains unchanged. Remains ventilator dependent due to severe anoxic brain injury. Patient has remained hemodynamically stable. General examination; middle aged man, on ventilator via tracheostomy. Currently in no distress and on responsive. No further emesis reported. Exam/Review of Systems Vital Signs Vitals Vital Signs Date Time Temp Pulse Resp B/P Pulse Ox O2 Delivery O2 Flow Rate FiO2 10/16/16 06:00 92 11 149/89 100 Mechanical Ventilator 10/16/16 05:25 35 10/16/16 04:00 100.1 Intake and Output 10/15/16 10/15/16 10/16/16 15:00 23:00 07:00 Intake Total 0 ml 660 ml 1000 ml Output Total 975 ml 875 ml 790 ml Balance -975 ml -215 ml 210 ml Exam HEENT examination; supple neck, no JVD. No lymphadenopathy. Tracheostomy in place with clean insertion site. Both are midsize and reactive to light. Chest examination; diminished but clear breath sounds bilaterally. S1-S2 audible, no murmurs. Regular rhythm. Abdomen examination; soft, nondistended. No organomegaly. G-tube in place. Bowel sounds audible. Extremity examination; no peripheral edema. BATTERY HAND examination; patient remains unresponsive. Results Result Diagram: 10/16/1665410/16/16654 Results 24 hrs Laboratory Tests Test 10/15/16 13:03 10/15/16 18:07 10/15/16 21:18 10/15/16 21:46 Bedside Glucose 159 122 69 L 132 Test 10/16/16 00:57 10/16/16 01:17 10/16/16 04:48 10/16/16 05:13 Bedside Glucose 69 L 128 60 L 95 Test 10/16/16 06:55 10/16/16 08:06 Anion Gap 8 Basophils # 0.0 Basophils % 0.6 Blood Morphology Comment Blood Urea Nitrogen 4 L Calcium Level 8.0 L Carbon Dioxide Level 32 H Chloride Level 95 L Creatinine 0.26 L Eosinophils # 0.2 Eosinophils % 2.6 Glucose Level 73 # Hematocrit 29.9 L Hemoglobin 10.1 L Lymphocytes # 0.8 Lymphocytes % 10.4 L Mean Corpuscular Hemoglobin 31.9 Mean Corpuscular Hemoglobin Concent 33.7 Mean Corpuscular Volume 94.6 Mean Platelet Volume 6.2 L Monocytes # 0.8 Monocytes % 11.5 H Neutrophils # 5.6 Neutrophils % 74.9 Nucleated Red Blood Cells # 0.0 Nucleated Red Blood Cells % 0.0 Platelet Count 195 Potassium Level 4.0 Red Blood Count 3.16 L Red Cell Distribution Width 16.8 H Sodium Level 131 L Vancomycin Level Trough 13.1 White Blood Count 7.4 Bedside Glucose 79 Medications Medications Current Medications Sodium Chloride (NS) 1,000 ml @ 75 mls/hr [id number] IV Last administered on 10/12 20:05; Admin Dose 75 MLS/HR; Start 10/10/16 at 13:49; Status Future Hold Ondansetron HCl (Zofran Inj) 4 mg Q6H PRN IV NAUSEA AND/OR VOMITING Last administered on 10/15/16 18:19; Admin Dose 4 MG; Start 10/10/16 at 14:00 Nitroglycerin (Nitroglycerin (Sl Tab) 0.4 Mg) 1 tab Q5M PRN SL CHEST PAIN; Start 10/10/16 at 14:00 Acetaminophen (Tylenol Supp) 650 mg Q4H PRN [place] PAIN LEVEL 1-3 OR FEVER; Start 10/10/16 at 14:00 Morphine Sulfate (morphine) 2 mg Q4H PRN IV PAIN LEVEL 7-10; Start 10/10/16 at 14:00 Lorazepam (Ativan) 1 mg Q2H PRN IV ANXIETY Last administered on 10/15/16 20:27 ; Admin Dose 1 MG; Start 10/10/16 at 14:00 Docusate Sodium 100 mg 100 mg Q12H PRN PO CONSTIPATION; Start 10/10/16 at 14:00 Levetiracetam 1000 mg/Sodium Chloride 110 ml @ 440 mls/hr Q12 IVPB Last administered on 10/15/16 20:06; Admin Dose 440 MLS/HR; Start 10/10/16 at 14:00 Cefepime HCl (Maxipime 1gm/50 ml (Pmx)) 50 ml @ 100 mls/hr Q12 IVPB Last administered on 10/15/16 20:08; Admin Dose 100 MLS/HR; Start 10/10/16 at 21:00 Hydralazine HCl (Apresoline) 10 mg Q6H PRN IV ELEVATED BLOOD PRESSURE Last administered on 10/15/16 15:05; Admin Dose 10 MG; Start 10/10/16 at 19:00 Desmopressin Acetate 0.2 mg 0.2 mg TID PO Last administered on 10/15/16 20:27 ; Admin Dose 0.2 MG; Start 10/14/16 at 10:30 Vancomycin HCl/ Sodium Chloride (Vancocin/NS) 250 ml @ 83.333 mls/ hr Q12H IVPB Last administered on 10/15/16 20:36; Admin Dose 83.333 MLS/HR; Start at 20:00 Insulin Human NPH (Humulin N) 19 unit BID SC Last administered on 10/15/16 09: 43; Admin Dose 19 UNIT; Start 10/15/16 at 09:00 Atorvastatin Calcium (Lipitor) 40 mg QHS GTB Last administered on 10/15/16 20: 27; Admin Dose 40 MG; Start 10/15/16 at 21:00 Benazepril HCl (Lotensin) 10 mg DAILY GTB Last administered on 10/15/16 13:07 ; Admin Dose 10 MG; Start 10/15/16 at 12:00 Docusate Sodium (Colace Liquid Cup) 200 mg DAILY PRN GTB CONSTIPATION Last administered on 10/15/16 18:10; Admin Dose 200 MG; Start 10/15/16 at 12:00 Ferrous Sulfate (Feosol Liquid Cup) 330 mg DAILY GTB ; Start 10/16/16 at 09:00 Hydralazine HCl (Apresoline) 25 mg Q6H PRN GTB ELEVATED BLOOD PRESSURE; Start 10/15/16 at 12:00 Metoprolol Tartrate (Lopressor) 25 mg BID GTB Last administered on 10/15/16 20 :27; Admin Dose 25 MG; Start 10/15/16 at 12:00 Mineral Oil (Fleet Mineral Oil Enema) 133 ml DAILY PRN [place] CONSTIPATION Last administered on 10/16/16 03:54; Admin Dose 133 ML; Start 10/15/16 at 12:00 Multivitamins Therapeutic (Theragran) 1 tab DAILY PO Last administered on 13:04; Admin Dose 1 TAB; Start 10/15/16 at 12:00 Potassium Chloride (Potassium Chloride Pwd/Soln) 40 meq DAILY GTB ; Start at 09:00 Insulin Detemir (Levemir) 16 unit BID SC Last administered on 10/15/16 13:13; Admin Dose 16 UNIT; Start 10/15/16 at 12:00 Insulin Aspart (Novolog Insulin Pen) NOVOLOG *MILD* ALGORI... Q4 SC Last administered on 10/15/16 13:16; Admin Dose 1 UNIT; Start 10/15/16 at 13:00 Miscellaneous Information 1 ea NOTE XX ; Start 10/15/16 at 21:30 Glucose (Glutose) 15 gm Q15M PRN PO DECREASED GLUCOSE; Start 10/15/16 at 21:30 Glucose (Glutose) 22.5 gm Q15M PRN PO DECREASED GLUCOSE; Start 10/15/16 at 21: 30 Dextrose (D50w Syringe) 25 ml Q15M PRN IV DECREASED GLUCOSE Last administered on 10/16/16 04:51; Admin Dose 25 ML; Start 10/15/16 at 21:30 Dextrose (D50w Syringe) 50 ml Q15M PRN IV DECREASED GLUCOSE; Start 10/15/16 at 21:30 Glucagon (Glucagen) 1 mg Q15M PRN IM DECREASED GLUCOSE; Start 10/15/16 at 21:30 Glucose 15 gm 15 gm Q15M PRN BUCCAL DECREASED GLUCOSE; Start 10/15/16 at 21:30 Potassium Chloride/Sodium Chloride (1/2 NS + KCl 20 Meq) 1,000 ml @ 50 mls/hr Q20H IV ; Start 10/16/16 at 08:30 JUANA DE LEÓN Oct 16, 2016 08:26
[2016-10-16] MEDS: LEVETIRACETAM IV 1,000 MG in SOD CHLORIDE 0.9% 100 ML IVPB SCH ×2 (08:28→21:15)
[2016-10-16] MEDS: CEFEPIME 1GM/50 ML (PMX) 50 ML IVPB SCH ×2 (08:28→22:11)
[2016-10-16] MEDS: VANCOMYCIN 1.25 GM in SOD CHLORIDE 0.9% 250 ML IVPB SCH ×2 (08:28→21:15)
[2016-10-16] MEDS ORDERED: MAGNESIUM SULFATE 2 GM/50 ML 50 ML IVPB ONE (08:30)
[2016-10-16] MEDS: DESMOPRESSIN 0.1 MG TAB PO SCH ×3 (08:40→21:20)
[2016-10-16] MEDS: FERROUS SULFATE 60 MG/ML 5ML CUP GTB SCH (08:41)
[2016-10-16] MEDS: METOPROLOL 25 MG TAB GTB SCH ×2 (08:42→21:20)
[2016-10-16] MEDS: BENAZEPRIL 10 MG TAB GTB SCH (08:44)
[2016-10-16] MEDS: DOCUSATE SODIUM 10 MG/ML (10ML CUP) GTB PRN (08:44)
[2016-10-16] MEDS: POTASSIUM CHLORIDE 20 MEQ POWDER FOR ORAL SOLN GTB SCH (08:45)
[2016-10-16] MEDS: MULTIVITAMINS THERAPEUTIC TAB PO SCH (08:45)
[2016-10-16] MEDS: NPH, HUMAN INSULIN ISOPHANE 3ML VIAL SC SCH (09:00)
[2016-10-16] MEDS: INSULIN DETEMIR [LEVEMIR] 3ML CART SC SCH (09:00)
[2016-10-16] MEDS: ONDANSETRON 4 MG INJ IV PRN (09:08)
[2016-10-16] MEDS: 1/2 NS + KCL 20 MEQ 1,000 ML IV SCH (10:35)
--- NOTE | 2016-10-16 14:08 | PN ---
DATE: 10/16/2016 SUBJECTIVE: No acute events overnight per report. The patient is lying comfortably in bed. He is spiking low-grade fevers with a temperature max of 100.1 this morning. Temperature current 98.9, pu lse 89, respirations 16, blood pressure 152/90, saturation 100 on 35% FIO2. LABORATORY DATA: WBC 7.4, H and H 10.1 and 29.9, platelets 195, no shift. BUN 4, creatinine 0.26. INDWELLINGS: Trach, PEG, Knapp, peripheral IV. ANTIMICROBIALS: 1. Vancomycin. 2. Cefepime day #7. PHYSICAL EXAMINATION: GENERAL: This is a chronically ill-appearing, middle-aged man who is lying comfortably in bed. HEENT: Head atraumatic, normocephalic. Sclerae anicteric. Buccal mucosa dry. NECK: Supple. Tracheostomy present. CHEST: Rise symmetrical. Breath sounds clear. HEART: S1, S2. ABDOMEN: Soft, bowel sounds present. EXTREMITIES: With trace edema. ASSESSMENT: 1. Sepsis, resolving, although now with low-grade fevers. 2. Enterococcal urinary tract infection. 3. Healthcare-acquired pneumonia. 4. Chronic respiratory failure. 5. Seizure disorder. 6. History of brainstem glioma, status post chemotherapy. PLAN: The patient remains unchanged. Completing antibiotics. He is being followed by multiple con sultants. We will panculture him if he spikes fever of 101 or above. We will repeat urine culture today. Dictated By: ROSANGELA CARDONA [employer] for QUINTIN DOMÍNGUEZ/NTS Conf#: [id number] DID#: [id number]
[2016-10-16] MEDS: METOCLOPRAMIDE 10 MG INJ IV SCH (18:03)
[2016-10-16] MEDS ORDERED: LACTULOSE 30ML CUP PO SCH (21:00)
[2016-10-16] MEDS: LACTULOSE 30ML CUP GTB SCH (21:15)
[2016-10-16] MEDS: LIDOCAINE 5% 35 GM OINT TOP SCH (21:18)
[2016-10-16] MEDS: ATORVASTATIN 40 MG TAB GTB SCH (21:20)
[2016-10-16] MEDS: CARBIDOPA/LEVODOPA (25/100) TAB GTB SCH (21:20)
[2016-10-16] MEDS: metroNIDAZOLE 500 MG TAB GTB SCH (21:20)
[2016-10-16] MEDS: LACTOBACILLUS CHEW TAB PO SCH (21:20)
[2016-10-16] MEDS: NYSTATIN SUSP 5 ML CUP PO SCH (21:21)
[2016-10-16] MEDS: ACETAMINOPHEN 650 MG SUPP PR PRN (22:11)
[2016-10-17] VITALS (30 sets, daily range): BP systolic 123–155; BP diastolic 80–106; PULSE 86–109; RESP 0–20
[2016-10-17] MEDS: INSULIN ASPART [NOVOLOG] 3 ML PEN SC SCH ×6 (01:00→21:00)
[2016-10-17] MEDS: METOCLOPRAMIDE 10 MG INJ IV SCH ×4 (01:04→17:31)
[2016-10-17] MEDS: 1/2 NS + KCL 20 MEQ 1,000 ML IV SCH (05:16)
[2016-10-17] MEDS: LANSOPRAZOLE 30 MG CAP GTB SCH ×2 (05:17→17:31)
[2016-10-17] MEDS: metroNIDAZOLE 500 MG TAB GTB SCH ×3 (05:17→21:09)
--- NOTE | 2016-10-17 06:13 | PN ---
DATE: 10/16/2016 SUBJECTIVE: Follow up on 51-year-old male with anoxic brain injury, ventilator dependent respirator y failure and sepsis. The patient currently continues on ventilator support. No fever per RN, carmelita segura, patient had episodes of non-bloody emesis. The patient had G-tube feeding only at 20 mL per ho ur. No diarrhea reported. OBJECTIVE VITAL SIGNS: Temperature 98.9, pulse is 85, blood pressure 152/98, respiratory rate 14, oxygen satu ration 100% on 35% FIO2. GENERAL: This is a well-developed male on ventilator support, does not respond to verbal internal s timuli. HEENT: Head is atraumatic, normocephalic. Pupils equal, round, reactive to light and accommodation . NECK: Supple. Tracheostomy at the base of the neck. CHEST: Scattered rhonchi bilaterally, slightly diminished at the bases. No wheezes noted. HEART: Normal S1, S2. No murmurs, gallops, clicks, rubs noted. ABDOMEN: Protuberant, soft, nondistended, nontender. Bowel sounds present. EXTREMITIES: Mild edema. There is no clubbing or cyanosis. Pulses equal bilaterally 2+. SKIN: There is no rash, petechiae noted. NEUROLOGIC: The patient is obtunded. LABORATORY DATA: For today CBC: White blood cells 7.4, hemoglobin 10.1, hematocrit 29.9, and plate lets 195. Chemistry: Sodium is 131, potassium 4.0, chloride 95, carbon dioxide 32, anion gap 8, BU N is 4, creatinine 0.26, glucose 73. ASSESSMENT AND PLAN: 1. Sepsis secondary to urinary tract infection and healthcare-acquired pneumonia. Patient is follo wed by Dr. Sales in infectious disease consultation. Continue antibiotics per ID. 2. Ventilator dependent respiratory failure. Dr. Unger is following from pulmonology standpoint. Continue bronchodilators and ventilatory support. 3. 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 4. Seizure disorder. Continue Keppra. 5. Hypertension, continue benazepril and hydralazine. 5. Severe hypernatremia. The patient is followed by Dr. Tovar in nephrology consultation. Continu e IV fluids per nephrology. 6. Hypokalemia. Potassium replaced. 7. History of cerebrovascular accident. Continue sequential compression device for deep venous thr ombosis prophylaxis and Pepcid for peptic ulcer disease prophylaxis. Further recommendations based on clinical course. Plan of care discussed with Dr. Cloby. Dictated By: ALTHEA ACOSTA HYDRO ELECTRIC STATION OPERATOR for JENELLE COLBY MD SR/NTS Conf#: [id number] DID#: [id number]
[2016-10-17 06:42] LABS: BASOPHIL # 0.1 10^3/ul (0.0-0.1); BASOPHILS % 0.8 % (0.0-2.0); EOSINOPHILS # 0.2 10^3/ul (0.0-0.5); EOSINOPHILS % 2.9 % (0.0-7.0); HEMOGLOBIN 10.9 g/dl (14.0-18.0); LYMPHOCYTES % 15.3 % (15.0-51.0); MEAN CORPUSCULAR HEMOGLOBIN 31.8 pg (29.0-33.0); MEAN CORPUSCULAR HGB CONC 34.1 g/dl (32.0-37.0); MEAN CORPUSCULAR VOLUME 93.2 fl (82.0-101.0); MEAN PLATELET VOLUME 6.4 fl (7.4-10.4); MONOCYTE # 0.8 10^3/ul (0.3-0.9); NEUTROPHIL # 4.4 10^3/ul (1.6-7.5); PLATELET COUNT 183 10^3/UL (140-440); RED BLOOD COUNT 3.43 10^6/ul (4.70-6.10); RED CELL DISTRIBUTION WIDTH 16.2 % (11.5-14.5); UNCORRECTED WBC 6.4 10^3/ul (4.8-10.8); WHITE BLOOD COUNT 6.4 10^3/ul (4.8-10.8)
[2016-10-17 06:48] LABS: CONDITION 1; LH ANALYZER COMMENTS 1
[2016-10-17 06:59] LABS: POTASSIUM 4.2 mmol/L (3.5-5.1)
[2016-10-17 07:01] LABS: CREATININE 0.28 mg/dl (0.61-1.24)
[2016-10-17 07:02] LABS: CALCIUM 7.5 mg/dl (8.4-10.2)
--- NOTE | 2016-10-17 08:33 | PN ---
Date/Time of Note Date/Time of Note DATE: 10/17/16 TIME: 08:32 Assessment/Plan VTE Prophylaxis VTE Prophylaxis Intervention: other Lines/Catheters IV Catheter Type (from [facility]): Peripheral IV Urinary Cath still in place: Yes Reason Cath still needed: skin wounds contaminated by urine Assessment/Plan Chief Complaint/Hosp Course 1. Sepsis secondary to urinary tract infection and healthcare-acquired pneumonia. Patient is followed by Dr. Sales in infectious disease consultation. Continue antibiotics per ID. 2. Ventilator dependent respiratory failure. Dr. Unger is following from pulmonology standpoint. Continue bronchodilators and ventilatory support. 3. 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 4. Seizure disorder. Continue Keppra. 5. Hypertension, continue benazepril and hydralazine. 5. Severe hypernatremia. The patient is followed by Dr. Tovar in nephrology consultation. Continue IV fluids per nephrology. 6. Hypokalemia. Potassium replaced. 7. History of cerebrovascular accident. Continue sequential compression device for deep venous thrombosis prophylaxis and Pepcid for peptic ulcer disease prophylaxis. Problems: Subjective 24 Hr Interval Summary Free Text/Dictation Patient is sedated and intubated Exam/Review of Systems Vital Signs Vitals Vital Signs Date Time Temp Pulse Resp B/P Pulse Ox O2 Delivery O2 Flow Rate FiO2 10/17/16 05:29 100 14 100 35 10/17/16 04:00 99.2 130/86 Mechanical Ventilator Intake and Output 10/16/16 10/16/16 10/17/16 15:00 23:00 07:00 Intake Total 100 ml 820 ml 620 ml Output Total 1100 ml 900 ml 540 ml Balance -1000 ml -80 ml 80 ml Exam Constitutional: well developed Head: atraumatic, normocephalic Neck: supple Respiratory: diminished breath sounds Cardiovascular: regular rate and rhythm Gastrointestinal: non-tender, soft Results Result Diagram: 10/17/16 0555 10/17/16 0555 Results 24 hrs Laboratory Tests Test 10/16/16 12:29 10/16/16 16:25 10/16/16 16:52 10/16/16 17:12 Bedside Glucose 52 L 62 L 111 98 Test 10/16/16 21:12 10/17/16 01:03 10/17/16 05:21 10/17/16 05:55 Bedside Glucose 83 88 112 Anion Gap 8 Basophils # 0.1 Basophils % 0.8 Blood Morphology Comment Blood Urea Nitrogen 7 Calcium Level 7.5 L Carbon Dioxide Level 30 Chloride Level 88 L Creatinine 0.28 L Eosinophils # 0.2 Eosinophils % 2.9 Glucose Level 90 Hematocrit 32.0 L Hemoglobin 10.9 L Lymphocytes # 1.0 Lymphocytes % 15.3 Mean Corpuscular Hemoglobin 31.8 Mean Corpuscular Hemoglobin Concent 34.1 Mean Corpuscular Volume 93.2 Mean Platelet Volume 6.4 L Monocytes # 0.8 Monocytes % 12.0 H Neutrophils # 4.4 Neutrophils % 69.0 Nucleated Red Blood Cells # 0.0 Nucleated Red Blood Cells % 0.0 Platelet Count 183 Potassium Level 4.2 Red Blood Count 3.43 L Red Cell Distribution Width 16.2 H Sodium Level 122 L White Blood Count 6.4 Medications Medications Current Medications Sodium Chloride (NS) 1,000 ml @ 75 mls/hr [id number] IV Last administered on 10/12 20:05; Admin Dose 75 MLS/HR; Start 10/10/16 at 13:49; Status Future Hold Ondansetron HCl (Zofran Inj) 4 mg Q6H PRN IV NAUSEA AND/OR VOMITING Last administered on 10/16/16 09:08; Admin Dose 4 MG; Start 10/10/16 at 14:00 Nitroglycerin (Nitroglycerin (Sl Tab) 0.4 Mg) 1 tab Q5M PRN SL CHEST PAIN; Start 10/10/16 at 14:00 Acetaminophen (Tylenol Supp) 650 mg Q4H PRN [place] PAIN LEVEL 1-3 OR FEVER Last administered on 10/16/16 22:11; Admin Dose 650 MG; Start 10/10/16 at 14:00 Morphine Sulfate (morphine) 2 mg Q4H PRN IV PAIN LEVEL 7-10; Start 10/10/16 at 14:00 Lorazepam (Ativan) 1 mg Q2H PRN IV ANXIETY Last administered on 10/15/16 20:27 ; Admin Dose 1 MG; Start 10/10/16 at 14:00 Docusate Sodium 100 mg 100 mg Q12H PRN PO CONSTIPATION; Start 10/10/16 at 14:00 Levetiracetam 1000 mg/Sodium Chloride 110 ml @ 440 mls/hr Q12 IVPB Last administered on 10/16/16 21:15; Admin Dose 440 MLS/HR; Start 10/10/16 at 14:00 Cefepime HCl (Maxipime 1gm/50 ml (Pmx)) 50 ml @ 100 mls/hr Q12 IVPB Last administered on 10/16/16 22:11; Admin Dose 100 MLS/HR; Start 10/10/16 at 21:00 Hydralazine HCl (Apresoline) 10 mg Q6H PRN IV ELEVATED BLOOD PRESSURE Last administered on 10/15/16 15:05; Admin Dose 10 MG; Start 10/10/16 at 19:00 Desmopressin Acetate 0.2 mg 0.2 mg TID PO Last administered on 10/16/16 21:20 ; Admin Dose 0.2 MG; Start 10/14/16 at 10:30 Vancomycin HCl/ Sodium Chloride (Vancocin/NS) 250 ml @ 83.333 mls/ hr Q12H IVPB Last administered on 10/16/16 21:15; Admin Dose 83.333 MLS/HR; Start at 20:00 Atorvastatin Calcium (Lipitor) 40 mg QHS GTB Last administered on 10/16/16 21: 20; Admin Dose 40 MG; Start 10/15/16 at 21:00 Benazepril HCl (Lotensin) 10 mg DAILY GTB Last administered on 10/16/16 08:44 ; Admin Dose 10 MG; Start 10/15/16 at 12:00 Docusate Sodium (Colace Liquid Cup) 200 mg DAILY PRN GTB CONSTIPATION Last administered on 10/16/16 08:44; Admin Dose 200 MG; Start 10/15/16 at 12:00 Ferrous Sulfate (Feosol Liquid Cup) 330 mg DAILY GTB Last administered on 08:41; Admin Dose 330 MG; Start 10/16/16 at 09:00 Hydralazine HCl (Apresoline) 25 mg Q6H PRN GTB ELEVATED BLOOD PRESSURE; Start 10/15/16 at 12:00 Mineral Oil (Fleet Mineral Oil Enema) 133 ml DAILY PRN [place] CONSTIPATION Last administered on 10/16/16 03:54; Admin Dose 133 ML; Start 10/15/16 at 12:00 Multivitamins Therapeutic (Theragran) 1 tab DAILY PO Last administered on 08:45; Admin Dose 1 TAB; Start 10/15/16 at 12:00 Potassium Chloride (Potassium Chloride Pwd/Soln) 40 meq DAILY GTB Last administered on 10/16/16 08:45; Admin Dose 40 MEQ; Start 10/16/16 at 09:00 Insulin Aspart (Novolog Insulin Pen) NOVOLOG *MILD* ALGORI... Q4 SC Last administered on 10/15/16 13:16; Admin Dose 1 UNIT; Start 10/15/16 at 13:00 Miscellaneous Information 1 ea NOTE XX ; Start 10/15/16 at 21:30 Glucose (Glutose) 15 gm Q15M PRN PO DECREASED GLUCOSE; Start 10/15/16 at 21:30 Glucose (Glutose) 22.5 gm Q15M PRN PO DECREASED GLUCOSE; Start 10/15/16 at 21: 30 Dextrose (D50w Syringe) 25 ml Q15M PRN IV DECREASED GLUCOSE Last administered on 10/16/16 16:31; Admin Dose 25 ML; Start 10/15/16 at 21:30 Dextrose (D50w Syringe) 50 ml Q15M PRN IV DECREASED GLUCOSE; Start 10/15/16 at 21:30 Glucagon (Glucagen) 1 mg Q15M PRN IM DECREASED GLUCOSE; Start 10/15/16 at 21:30 Glucose 15 gm 15 gm Q15M PRN BUCCAL DECREASED GLUCOSE; Start 10/15/16 at 21:30 Potassium Chloride/Sodium Chloride (1/2 NS + KCl 20 Meq) 1,000 ml @ 50 mls/hr Q20H IV Last administered on 10/17/16 05:16; Admin Dose 50 MLS/HR; Start 10/16 at 08:30 Metoclopramide HCl (Reglan) 10 mg Q6 IV Last administered on 10/17/16 05:17; Admin Dose 10 MG; Start 10/16/16 at 18:00 Lactobacillus Acidoph/Bulgaricus (Floranex) 2 tab BID PO Last administered on 21:20; Admin Dose 2 TAB; Start 10/16/16 at 21:00 Lactulose (Enulose) 30 gm BID GTB Last administered on 10/16/16 21:15; Admin Dose 30 GM; Start 10/16/16 at 21:00 Lansoprazole (Prevacid) 30 mg BID@,18 GTB Last administered on 10/17/16 05: 17; Admin Dose 30 MG; Start 10/17/16 at 06:00 Carbidopa/Levodopa (Sinemet (25/ 100)) 1 tab TID GTB Last administered on 21:20; Admin Dose 1 TAB; Start 10/16/16 at 21:00 Lidocaine (Lidocaine 5% Oint) 1 applic TID TOP Last administered on 10/16/16 21:18; Admin Dose 1 APPLIC; Start 10/16/16 at 21:00 Metoprolol Tartrate (Lopressor) 12.5 mg BID GTB Last administered on 10/16/16 21:20; Admin Dose 12.5 MG; Start 10/16/16 at 21:00 Metronidazole (Flagyl) 500 mg Q8 GTB Last administered on 10/17/16 05:17; Admin Dose 500 MG; Start 10/16/16 at 22:00 Nystatin (Nystatin Susp) 5 ml QID PO Last administered on 10/16/16 21:21; Admin Dose 5 ML; Start 10/16/16 at 21:00 NORY BARGER Oct 17, 2016 08:33
[2016-10-17] MEDS: NYSTATIN SUSP 5 ML CUP PO SCH ×4 (08:59→21:11)
[2016-10-17] MEDS: BENAZEPRIL 10 MG TAB GTB SCH (09:00)
[2016-10-17] MEDS: LIDOCAINE 5% 35 GM OINT TOP SCH ×3 (09:00→21:11)
[2016-10-17] MEDS: DESMOPRESSIN 0.1 MG TAB PO SCH ×3 (09:00→21:09)
[2016-10-17] MEDS ORDERED: NACL 3% 500 ML IV SCH (09:00)
[2016-10-17] MEDS: CARBIDOPA/LEVODOPA (25/100) TAB GTB SCH ×3 (09:00→21:10)
[2016-10-17] MEDS: METOPROLOL 25 MG TAB GTB SCH ×2 (09:00→21:10)
[2016-10-17] MEDS: MULTIVITAMINS THERAPEUTIC TAB PO SCH (09:00)
[2016-10-17] MEDS: LACTULOSE 30ML CUP GTB SCH ×2 (09:00→21:09)
[2016-10-17] MEDS: FERROUS SULFATE 60 MG/ML 5ML CUP GTB SCH (09:01)
[2016-10-17] MEDS: LACTOBACILLUS CHEW TAB PO SCH ×2 (09:01→21:09)
[2016-10-17] MEDS: LEVETIRACETAM IV 1,000 MG in SOD CHLORIDE 0.9% 100 ML IVPB SCH ×2 (09:02→21:10)
[2016-10-17] MEDS: CEFEPIME 1GM/50 ML (PMX) 50 ML IVPB SCH ×2 (09:02→21:10)
[2016-10-17] MEDS: POTASSIUM CHLORIDE 20 MEQ POWDER FOR ORAL SOLN GTB SCH (09:19)
[2016-10-17] MEDS: VANCOMYCIN 1.25 GM in SOD CHLORIDE 0.9% 250 ML IVPB SCH ×2 (09:26→20:14)
--- NOTE | 2016-10-17 10:10 | CONS ---
Date/Time of Note Date/Time of Note DATE: 10/17/16 TIME: 10:08 Assessment/Plan Assessment/Plan Additional Assessment/Plan 1. Severe hyponatremia with a sodium of 119, possibly acute on chronic hyponatremia versus acute severe hyponatremia.- pt went from hyponatremia to hypernatremia with treatment with 3% saline and one dose of tolvaptan - then Improved to normal today wtih D5W IVF and DDAVP 0.2mg PO x2 dose 10/15/16- on again Na dropped from 140 to 122 today 2. Seizures secondary to severe hyponatremia. 3. Sepsis secondary to bilateral pneumonia. 4. Ventilator-dependent respiratory failure, status post tracheostomy, on vent. 5. History of a previous brain tumor, had surgery. Currently, status post ventriculoperitoneal shunt in place. 6. History of a previous cerebellar cerebrovascular accident. PLAN: pt received 3 % saline and tolvaptan one dose- went into polyuria, Na went from hyponatremia to hypernatremia- now improved to normal with D5W IVF and 2 dose of DDAVP 0.2mg- again today 10/16- na dropped from 140 to 122- will start 3% hypertonic saline for another 12 hr onTube feeding with diabetosource- continue IVF to 1/2 NS with 20 KCL at 50 cc/ hr monitor Na, pt has acute on chronic hyponatremia ventilator care as per pulmonary will follow up Consultation Date/Type/Reason Admit Date/Time Oct 10, 2016 at 13:53 Initial Consult Date 10/10/16 Type of Consultation: NEPHROLOGY Reason for Consultation Hyponatremia to Hypernatremia then again hyponatremia Referring Provider: MADDY HOPKINS MD 24 HR Interval Summary Free Text/Dictation Na dropped to 122, afebrile, BP stable ,on vent Exam/Review of Systems Vital Signs Vitals Vital Signs Date Time Temp Pulse Resp B/P Pulse Ox O2 Delivery O2 Flow Rate FiO2 10/17/16 05:29 100 14 100 35 10/17/16 04:00 99.2 130/86 Mechanical Ventilator Intake and Output 10/16/16 10/16/16 10/17/16 15:00 23:00 07:00 Intake Total 100 ml 820 ml 620 ml Output Total 1100 ml 900 ml 540 ml Balance -1000 ml -80 ml 80 ml Exam GENERAL: The patient is currently on a ventilator, through tracheostomy. HEENT: Tracheostomy site is clear. LUNGS: Bilateral coarse breath sounds with bilateral basilar rales present and lower lobe rhonchi present. HEART: S1, S2, tachycardia, no murmur. ABDOMEN: Soft. G-tube in place. EXTREMITIES: No clubbing, cyanosis, or edema. The patient is very debilitated. PSYCHIATRIC: Not able to assess. NEUROLOGICAL: Not able to assess. , + steve catheter in place Results Result Diagram: 10/17/16 0555 10/17/16 0555 Results 24 hrs Laboratory Tests Test 10/16/16 12:29 10/16/16 16:25 10/16/16 16:52 10/16/16 17:12 Bedside Glucose 52 L 62 L 111 98 Test 10/16/16 21:12 10/17/16 01:03 10/17/16 05:21 10/17/16 05:55 Bedside Glucose 83 88 112 Anion Gap 8 Basophils # 0.1 Basophils % 0.8 Blood Morphology Comment Blood Urea Nitrogen 7 Calcium Level 7.5 L Carbon Dioxide Level 30 Chloride Level 88 L Creatinine 0.28 L Eosinophils # 0.2 Eosinophils % 2.9 Glucose Level 90 Hematocrit 32.0 L Hemoglobin 10.9 L Hemoglobin A1c 5.4 Lymphocytes # 1.0 Lymphocytes % 15.3 Mean Corpuscular Hemoglobin 31.8 Mean Corpuscular Hemoglobin Concent 34.1 Mean Corpuscular Volume 93.2 Mean Platelet Volume 6.4 L Monocytes # 0.8 Monocytes % 12.0 H Neutrophils # 4.4 Neutrophils % 69.0 Nucleated Red Blood Cells # 0.0 Nucleated Red Blood Cells % 0.0 Platelet Count 183 Potassium Level 4.2 Red Blood Count 3.43 L Red Cell Distribution Width 16.2 H Sodium Level 122 L White Blood Count 6.4 Test 10/17/16 09:44 Bedside Glucose 109 Medications Medications Current Medications Sodium Chloride (NS) 1,000 ml @ 75 mls/hr [id number] IV Last administered on 10/12 20:05; Admin Dose 75 MLS/HR; Start 10/10/16 at 13:49; Status Future Hold Ondansetron HCl (Zofran Inj) 4 mg Q6H PRN IV NAUSEA AND/OR VOMITING Last administered on 10/16/16 09:08; Admin Dose 4 MG; Start 10/10/16 at 14:00 Nitroglycerin (Nitroglycerin (Sl Tab) 0.4 Mg) 1 tab Q5M PRN SL CHEST PAIN; Start 10/10/16 at 14:00 Acetaminophen (Tylenol Supp) 650 mg Q4H PRN [place] PAIN LEVEL 1-3 OR FEVER Last administered on 10/16/16 22:11; Admin Dose 650 MG; Start 10/10/16 at 14:00 Morphine Sulfate (morphine) 2 mg Q4H PRN IV PAIN LEVEL 7-10; Start 10/10/16 at 14:00 Lorazepam (Ativan) 1 mg Q2H PRN IV ANXIETY Last administered on 10/15/16 20:27 ; Admin Dose 1 MG; Start 10/10/16 at 14:00 Docusate Sodium 100 mg 100 mg Q12H PRN PO CONSTIPATION; Start 10/10/16 at 14:00 Levetiracetam 1000 mg/Sodium Chloride 110 ml @ 440 mls/hr Q12 IVPB Last administered on 10/17/16 09:02; Admin Dose 440 MLS/HR; Start 10/10/16 at 14:00 Cefepime HCl (Maxipime 1gm/50 ml (Pmx)) 50 ml @ 100 mls/hr Q12 IVPB Last administered on 10/17/16 09:02; Admin Dose 100 MLS/HR; Start 10/10/16 at 21:00 Hydralazine HCl (Apresoline) 10 mg Q6H PRN IV ELEVATED BLOOD PRESSURE Last administered on 10/15/16 15:05; Admin Dose 10 MG; Start 10/10/16 at 19:00 Desmopressin Acetate 0.2 mg 0.2 mg TID PO Last administered on 10/17/16 09:00 ; Admin Dose 0.2 MG; Start 10/14/16 at 10:30 Vancomycin HCl/ Sodium Chloride (Vancocin/NS) 250 ml @ 83.333 mls/ hr Q12H IVPB Last administered on 10/17/16 09:26; Admin Dose 83.333 MLS/HR; Start at 20:00 Atorvastatin Calcium (Lipitor) 40 mg QHS GTB Last administered on 10/16/16 21: 20; Admin Dose 40 MG; Start 10/15/16 at 21:00 Benazepril HCl (Lotensin) 10 mg DAILY GTB Last administered on 10/17/16 09:00 ; Admin Dose 10 MG; Start 10/15/16 at 12:00 Docusate Sodium (Colace Liquid Cup) 200 mg DAILY PRN GTB CONSTIPATION Last administered on 10/16/16 08:44; Admin Dose 200 MG; Start 10/15/16 at 12:00 Ferrous Sulfate (Feosol Liquid Cup) 330 mg DAILY GTB Last administered on 09:01; Admin Dose 330 MG; Start 10/16/16 at 09:00 Hydralazine HCl (Apresoline) 25 mg Q6H PRN GTB ELEVATED BLOOD PRESSURE; Start 10/15/16 at 12:00 Mineral Oil (Fleet Mineral Oil Enema) 133 ml DAILY PRN [place] CONSTIPATION Last administered on 10/16/16 03:54; Admin Dose 133 ML; Start 10/15/16 at 12:00 Multivitamins Therapeutic (Theragran) 1 tab DAILY PO Last administered on 09:00; Admin Dose 1 TAB; Start 10/15/16 at 12:00 Potassium Chloride (Potassium Chloride Pwd/Soln) 40 meq DAILY GTB Last administered on 10/17/16 09:19; Admin Dose 40 MEQ; Start 10/16/16 at 09:00 Insulin Aspart (Novolog Insulin Pen) NOVOLOG *MILD* ALGORI... Q4 SC Last administered on 10/15/16 13:16; Admin Dose 1 UNIT; Start 10/15/16 at 13:00 Miscellaneous Information 1 ea NOTE XX ; Start 10/15/16 at 21:30 Glucose (Glutose) 15 gm Q15M PRN PO DECREASED GLUCOSE; Start 10/15/16 at 21:30 Glucose (Glutose) 22.5 gm Q15M PRN PO DECREASED GLUCOSE; Start 10/15/16 at 21: 30 Dextrose (D50w Syringe) 25 ml Q15M PRN IV DECREASED GLUCOSE Last administered on 10/16/16 16:31; Admin Dose 25 ML; Start 10/15/16 at 21:30 Dextrose (D50w Syringe) 50 ml Q15M PRN IV DECREASED GLUCOSE; Start 10/15/16 at 21:30 Glucagon (Glucagen) 1 mg Q15M PRN IM DECREASED GLUCOSE; Start 10/15/16 at 21:30 Glucose 15 gm 15 gm Q15M PRN BUCCAL DECREASED GLUCOSE; Start 10/15/16 at 21:30 Potassium Chloride/Sodium Chloride (1/2 NS + KCl 20 Meq) 1,000 ml @ 50 mls/hr Q20H IV Last administered on 10/17/16 05:16; Admin Dose 50 MLS/HR; Start 10/16 at 08:30 Metoclopramide HCl (Reglan) 10 mg Q6 IV Last administered on 10/17/16 05:17; Admin Dose 10 MG; Start 10/16/16 at 18:00 Lactobacillus Acidoph/Bulgaricus (Floranex) 2 tab BID PO Last administered on 09:01; Admin Dose 2 TAB; Start 10/16/16 at 21:00 Lactulose (Enulose) 30 gm BID GTB Last administered on 10/17/16 09:00; Admin Dose 30 GM; Start 10/16/16 at 21:00 Lansoprazole (Prevacid) 30 mg BID@,18 GTB Last administered on 10/17/16 05: 17; Admin Dose 30 MG; Start 10/17/16 at 06:00 Carbidopa/Levodopa (Sinemet (25/ 100)) 1 tab TID GTB Last administered on 09:00; Admin Dose 1 TAB; Start 10/16/16 at 21:00 Lidocaine (Lidocaine 5% Oint) 1 applic TID TOP Last administered on 10/16/16 21:18; Admin Dose 1 APPLIC; Start 10/16/16 at 21:00 Metoprolol Tartrate (Lopressor) 12.5 mg BID GTB Last administered on 10/17/16 09:00; Admin Dose 12.5 MG; Start 10/16/16 at 21:00 Metronidazole (Flagyl) 500 mg Q8 GTB Last administered on 10/17/16 05:17; Admin Dose 500 MG; Start 10/16/16 at 22:00 Nystatin 5 ml 5 ml QID PO Last administered on 10/17/16 08:59; Admin Dose 5 ML ; Start 10/16/16 at 21:00 Sodium Chloride (Sodium Chloride Iv 3%) 500 ml @ 30 mls/hr [id number] IV Last administered on 10/17/16t 09:41; Admin Dose 30 MLS/HR; Start 10/17/16 at 09:00; Stop 10/17/16 at 22:00 LISSA PARK MD Oct 17, 2016 10:10
[2016-10-17] MEDS: IPRATROPIUM (HFA) 12.9 GM INHALER INH PRN (13:35)
[2016-10-17] MEDS: ALBUTEROL HFA 8 GM INHALER INH PRN (13:35)
--- NOTE | 2016-10-17 13:46 | PN ---
DATE: 10/17/2016 INFECTIOUS DISEASE PROGRESS NOTE SUBJECTIVE: No acute changes. The patient spiked a fever of 101 yesterday, currently afebrile, lyi ng comfortably in bed. His sodium today is 122, BUN 7, creatinine 0.28. White blood cell count 6.4 . No shift, no bands. MICROBIOLOGY: Cultures have been negative since admission. ANTIMICROBIALS: 1. Vancomycin. 2. Flagyl. 3. Cefepime, day #8. INDWELLINGS: Trach, PEG, Knapp, peripheral IV. PHYSICAL EXAMINATION: GENERAL: Chronically ill-appearing, middle-aged man, who is lying comfortably in bed. Pat kayla is nonverbal, noncommunicative. HEENT: Head atraumatic, normocephalic. Sclerae anicteric. Buccal mucosa dry. NECK: Supple. Tracheostomy present. CHEST: Chest rise is symmetrical. Breath sounds diminished to the bases. HEART: S1, S2. ABDOMEN: Soft. Bowel sounds present. EXTREMITIES: Without cyanosis. ASSESSMENT: 1. Resolving sepsis. 2. Status post pneumonia and urinary tract infection. 3. Chronic respiratory failure. 4. Chronic encephalopathy. 5. History of brainstem glioma, status post chemotherapy. 6. Status post diarrhea, started on Flagyl. 7. Electrolyte imbalance. PLAN: We are going to discontinue vancomycin and cefepime. Keep him on Flagyl. Repeat cultures if he spikes a temperature of 101 and above. Dictated By: ROSANGELA CARDONA FLOORS BUFFER for QUINTIN DOMÍNGUEZ/NTS Conf#: [id number] DID#: [id number]
--- NOTE | 2016-10-17 16:18 | CONS ---
Date/Time of Note Date/Time of Note DATE: 10/17/16 TIME: 16:15 Consult Date/Type/Reason Admit Date/Time Oct 10, 2016 at 13:53 Initial Consult Date 10/10/16 Type of Consultation: Pulm Ordering Provider: MADDY HOPKINS MD Subjective No events. Unresponsive on MV. Objective Vital Signs Date Time Temp Pulse Resp B/P Pulse Ox O2 Delivery O2 Flow Rate FiO2 10/17/16 15:00 97 20 138/90 100 Mechanical Ventilator 10/17/16 13:40 30 10/17/16 12:00 98.0 Intake and Output 10/16/16 10/16/16 10/17/16 15:00 23:00 07:00 Intake Total 100 ml 820 ml 700 ml Output Total 1100 ml 900 ml 540 ml Balance -1000 ml -80 ml 160 ml HEENT: Tracheostomy in place. NECK: Supple, no thyromegaly. CARDIOVASCULAR: Regular rate and rhythm, S1, S2. No murmurs, rubs, or gallops. CHEST: Bilateral rhonchi with occasional wheezing heard. ABDOMEN: Soft, nontender. G-tube site is intact. EXTREMITIES: There is trace bilateral lower extremity edema with muscle wasting. Results/Medications Result Diagram: 10/17/16 0555 10/17/16 0555 Results 24 hrs Laboratory Tests Test 10/16/16 16:25 10/16/16 16:52 10/16/16 17:12 10/16/16 21:12 Bedside Glucose 62 L 111 98 83 Test 10/17/16 01:03 10/17/16 05:21 10/17/16 05:55 10/17/16 09:44 Bedside Glucose 88 112 109 Anion Gap 8 Basophils # 0.1 Basophils % 0.8 Blood Morphology Comment Blood Urea Nitrogen 7 Calcium Level 7.5 L Carbon Dioxide Level 30 Chloride Level 88 L Creatinine 0.28 L Eosinophils # 0.2 Eosinophils % 2.9 Glucose Level 90 Hematocrit 32.0 L Hemoglobin 10.9 L Hemoglobin A1c 5.4 Lymphocytes # 1.0 Lymphocytes % 15.3 Mean Corpuscular Hemoglobin 31.8 Mean Corpuscular Hemoglobin Concent 34.1 Mean Corpuscular Volume 93.2 Mean Platelet Volume 6.4 L Monocytes # 0.8 Monocytes % 12.0 H Neutrophils # 4.4 Neutrophils % 69.0 Nucleated Red Blood Cells # 0.0 Nucleated Red Blood Cells % 0.0 Platelet Count 183 Potassium Level 4.2 Red Blood Count 3.43 L Red Cell Distribution Width 16.2 H Sodium Level 122 L White Blood Count 6.4 Test 10/17/16 13:07 Bedside Glucose 112 Medications Current Medications Sodium Chloride (NS) 1,000 ml @ 75 mls/hr [id number] IV Last administered on 10/12 20:05; Admin Dose 75 MLS/HR; Start 10/10/16 at 13:49; Status Future Hold Ondansetron HCl (Zofran Inj) 4 mg Q6H PRN IV NAUSEA AND/OR VOMITING Last administered on 10/16/16 09:08; Admin Dose 4 MG; Start 10/10/16 at 14:00 Nitroglycerin (Nitroglycerin (Sl Tab) 0.4 Mg) 1 tab Q5M PRN SL CHEST PAIN; Start 10/10/16 at 14:00 Acetaminophen (Tylenol Supp) 650 mg Q4H PRN [place] PAIN LEVEL 1-3 OR FEVER Last administered on 10/16/16 22:11; Admin Dose 650 MG; Start 10/10/16 at 14:00 Morphine Sulfate (morphine) 2 mg Q4H PRN IV PAIN LEVEL 7-10; Start 10/10/16 at 14:00 Lorazepam (Ativan) 1 mg Q2H PRN IV ANXIETY Last administered on 10/15/16 20:27 ; Admin Dose 1 MG; Start 10/10/16 at 14:00 Docusate Sodium 100 mg 100 mg Q12H PRN PO CONSTIPATION; Start 10/10/16 at 14:00 Levetiracetam 1000 mg/Sodium Chloride 110 ml @ 440 mls/hr Q12 IVPB Last administered on 10/17/16 09:02; Admin Dose 440 MLS/HR; Start 10/10/16 at 14:00 Cefepime HCl (Maxipime 1gm/50 ml (Pmx)) 50 ml @ 100 mls/hr Q12 IVPB Last administered on 10/17/16 09:02; Admin Dose 100 MLS/HR; Start 10/10/16 at 21:00 Hydralazine HCl (Apresoline) 10 mg Q6H PRN IV ELEVATED BLOOD PRESSURE Last administered on 10/15/16 15:05; Admin Dose 10 MG; Start 10/10/16 at 19:00 Desmopressin Acetate 0.2 mg 0.2 mg TID PO Last administered on 10/17/16 13:10 ; Admin Dose 0.2 MG; Start 10/14/16 at 10:30 Vancomycin HCl/ Sodium Chloride (Vancocin/NS) 250 ml @ 83.333 mls/ hr Q12H IVPB Last administered on 10/17/16 09:26; Admin Dose 83.333 MLS/HR; Start at 20:00 Atorvastatin Calcium (Lipitor) 40 mg QHS GTB Last administered on 10/16/16 21: 20; Admin Dose 40 MG; Start 10/15/16 at 21:00 Benazepril HCl (Lotensin) 10 mg DAILY GTB Last administered on 10/17/16 09:00 ; Admin Dose 10 MG; Start 10/15/16 at 12:00 Docusate Sodium (Colace Liquid Cup) 200 mg DAILY PRN GTB CONSTIPATION Last administered on 10/16/16 08:44; Admin Dose 200 MG; Start 10/15/16 at 12:00 Ferrous Sulfate (Feosol Liquid Cup) 330 mg DAILY GTB Last administered on 09:01; Admin Dose 330 MG; Start 10/16/16 at 09:00 Hydralazine HCl (Apresoline) 25 mg Q6H PRN GTB ELEVATED BLOOD PRESSURE; Start 10/15/16 at 12:00 Mineral Oil (Fleet Mineral Oil Enema) 133 ml DAILY PRN [place] CONSTIPATION Last administered on 10/16/16 03:54; Admin Dose 133 ML; Start 10/15/16 at 12:00 Multivitamins Therapeutic (Theragran) 1 tab DAILY PO Last administered on 09:00; Admin Dose 1 TAB; Start 10/15/16 at 12:00 Potassium Chloride (Potassium Chloride Pwd/Soln) 40 meq DAILY GTB Last administered on 10/17/16 09:19; Admin Dose 40 MEQ; Start 10/16/16 at 09:00 Insulin Aspart (Novolog Insulin Pen) NOVOLOG *MILD* ALGORI... Q4 SC Last administered on 10/15/16 13:16; Admin Dose 1 UNIT; Start 10/15/16 at 13:00 Miscellaneous Information 1 ea NOTE XX ; Start 10/15/16 at 21:30 Glucose (Glutose) 15 gm Q15M PRN PO DECREASED GLUCOSE; Start 10/15/16 at 21:30 Glucose (Glutose) 22.5 gm Q15M PRN PO DECREASED GLUCOSE; Start 10/15/16 at 21: 30 Dextrose (D50w Syringe) 25 ml Q15M PRN IV DECREASED GLUCOSE Last administered on 10/16/16 16:31; Admin Dose 25 ML; Start 10/15/16 at 21:30 Dextrose (D50w Syringe) 50 ml Q15M PRN IV DECREASED GLUCOSE; Start 10/15/16 at 21:30 Glucagon (Glucagen) 1 mg Q15M PRN IM DECREASED GLUCOSE; Start 10/15/16 at 21:30 Glucose 15 gm 15 gm Q15M PRN BUCCAL DECREASED GLUCOSE; Start 10/15/16 at 21:30 Potassium Chloride/Sodium Chloride (1/2 NS + KCl 20 Meq) 1,000 ml @ 50 mls/hr Q20H IV Last administered on 10/17/16 05:16; Admin Dose 50 MLS/HR; Start 10/16 at 08:30 Metoclopramide HCl (Reglan) 10 mg Q6 IV Last administered on 10/17/16 13:10; Admin Dose 10 MG; Start 10/16/16 at 18:00 Lactobacillus Acidoph/Bulgaricus (Floranex) 2 tab BID PO Last administered on 09:01; Admin Dose 2 TAB; Start 10/16/16 at 21:00 Lactulose (Enulose) 30 gm BID GTB Last administered on 10/17/16 09:00; Admin Dose 30 GM; Start 10/16/16 at 21:00 Lansoprazole (Prevacid) 30 mg BID@,18 GTB Last administered on 10/17/16 05: 17; Admin Dose 30 MG; Start 10/17/16 at 06:00 Carbidopa/Levodopa (Sinemet (25/ 100)) 1 tab TID GTB Last administered on 13:10; Admin Dose 1 TAB; Start 10/16/16 at 21:00 Lidocaine (Lidocaine 5% Oint) 1 applic TID TOP Last administered on 10/16/16 21:18; Admin Dose 1 APPLIC; Start 10/16/16 at 21:00 Metoprolol Tartrate (Lopressor) 12.5 mg BID GTB Last administered on 10/17/16 09:00; Admin Dose 12.5 MG; Start 10/16/16 at 21:00 Metronidazole (Flagyl) 500 mg Q8 GTB Last administered on 10/17/16 13:11; Admin Dose 500 MG; Start 10/16/16 at 22:00 Nystatin 5 ml 5 ml QID PO Last administered on 10/17/16 13:10; Admin Dose 5 ML ; Start 10/16/16 at 21:00 Sodium Chloride (Sodium Chloride Iv 3%) 500 ml @ 30 mls/hr [id number] IV Last administered on 10/17/16 09:41; Admin Dose 30 MLS/HR; Start 10/17/16 at 09:00; Stop 10/17/16 at 22:00 Assessment/Plan Additional Assessment/Plan IMPRESSION: 1. Chronic vent-dependent respiratory failure. 2. Sepsis 3. Seizures, possibly lowering threshold due to infection as well as hyponatremia. 4. Hyponatremia 5. Chronic encephalopathy RECOMMENDATIONS: 1. Vent support 2. Abx 3. TF's 4. Obtain TSH 5. Am CXR 35 min CC time ELINA BENTLEY MD Oct 17, 2016 16:18
[2016-10-17] MEDS: ATORVASTATIN 40 MG TAB GTB SCH (21:09)
[2016-10-18] VITALS (28 sets, daily range): BP systolic 110–164; BP diastolic 73–90; PULSE 85–112; RESP 12–29
[2016-10-18] MEDS: METOCLOPRAMIDE 10 MG INJ IV SCH ×4 (00:53→17:03)
[2016-10-18] MEDS: 1/2 NS + KCL 20 MEQ 1,000 ML IV SCH ×2 (00:53→20:30)
[2016-10-18] MEDS: INSULIN ASPART [NOVOLOG] 3 ML PEN SC SCH ×5 (01:35→17:08)
[2016-10-18] MEDS: metroNIDAZOLE 500 MG TAB GTB SCH ×3 (05:37→21:27)
[2016-10-18] MEDS: LANSOPRAZOLE 30 MG CAP GTB SCH ×2 (05:37→17:05)
[2016-10-18 06:34] LABS: POTASSIUM 3.9 mmol/L (3.5-5.1)
[2016-10-18 06:36] LABS: CREATININE 0.31 mg/dl (0.61-1.24)
[2016-10-18 06:37] LABS: CALCIUM 7.1 mg/dl (8.4-10.2)
[2016-10-18 06:41] LABS: BASOPHILS % 0.7 % (0.0-2.0); EOSINOPHILS # 0.1 10^3/ul (0.0-0.5); EOSINOPHILS % 1.7 % (0.0-7.0); HEMATOCRIT 28.6 % (42.0-52.0); HEMOGLOBIN 9.6 g/dl (14.0-18.0); LYMPHOCYTES # 0.6 10^3/ul (0.8-2.9); LYMPHOCYTES % 9.6 % (15.0-51.0); MEAN CORPUSCULAR HEMOGLOBIN 31.6 pg (29.0-33.0); MEAN CORPUSCULAR HGB CONC 33.8 g/dl (32.0-37.0); MEAN CORPUSCULAR VOLUME 93.4 fl (82.0-101.0); MEAN PLATELET VOLUME 6.9 fl (7.4-10.4); MONOCYTE # 0.7 10^3/ul (0.3-0.9); NEUTROPHIL # 4.9 10^3/ul (1.6-7.5); PLATELET COUNT 171 10^3/UL (140-440); RED BLOOD COUNT 3.06 10^6/ul (4.70-6.10); RED CELL DISTRIBUTION WIDTH 15.8 % (11.5-14.5); UNCORRECTED WBC 6.4 10^3/ul (4.8-10.8); WHITE BLOOD COUNT 6.4 10^3/ul (4.8-10.8)
[2016-10-18 07:07] LABS: CONDITION 1; LH ANALYZER COMMENTS 1
[2016-10-18] MEDS: BENAZEPRIL 10 MG TAB GTB SCH (08:15)
[2016-10-18] MEDS: DESMOPRESSIN 0.1 MG TAB PO SCH ×3 (08:15→20:47)
[2016-10-18] MEDS: METOPROLOL 25 MG TAB GTB SCH ×2 (08:16→20:48)
[2016-10-18] MEDS: FERROUS SULFATE 60 MG/ML 5ML CUP GTB SCH (08:18)
[2016-10-18] MEDS: LACTOBACILLUS CHEW TAB PO SCH ×2 (08:18→20:47)
[2016-10-18] MEDS: LACTULOSE 30ML CUP GTB SCH ×2 (08:18→20:46)
[2016-10-18] MEDS: POTASSIUM CHLORIDE 20 MEQ POWDER FOR ORAL SOLN GTB SCH (08:18)
[2016-10-18] MEDS: CARBIDOPA/LEVODOPA (25/100) TAB GTB SCH ×3 (08:19→20:48)
[2016-10-18] MEDS: MULTIVITAMINS THERAPEUTIC TAB PO SCH (08:19)
[2016-10-18] MEDS: NYSTATIN SUSP 5 ML CUP PO SCH ×4 (08:19→20:46)
[2016-10-18] MEDS ORDERED: TOLVAPTAN 15 MG TABLET PO ONE (08:30)
[2016-10-18] MEDS: CEFEPIME 1GM/50 ML (PMX) 50 ML IVPB SCH (10:39)
[2016-10-18] MEDS: LEVETIRACETAM IV 1,000 MG in SOD CHLORIDE 0.9% 100 ML IVPB SCH ×2 (10:39→22:19)
[2016-10-18] MEDS: VANCOMYCIN 1.25 GM in SOD CHLORIDE 0.9% 250 ML IVPB SCH (11:06)
--- NOTE | 2016-10-18 11:25 | PN ---
Date/Time of Note Date/Time of Note DATE: 10/18/16 TIME: 11:24 Assessment/Plan VTE Prophylaxis VTE Prophylaxis Intervention: other Lines/Catheters IV [facility] Type (from [facility] Peripheral IV Urinary Cath still in place: Yes Reason Cath still needed: skin wounds contaminated by urine Assessment/Plan Chief Complaint/Hosp Course 1. Sepsis secondary to urinary tract infection and healthcare-acquired pneumonia. Patient is followed by Dr. Sales in infectious disease consultation. Continue antibiotics per ID. 2. Ventilator dependent respiratory failure. Dr. Unger is following from pulmonology standpoint. Continue bronchodilators and ventilatory support. 3. 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 4. Seizure disorder. Continue Keppra. 5. Hypertension, continue benazepril and hydralazine. 5. Severe hypernatremia. The patient is followed by Dr. Tovar in nephrology consultation. Continue IV fluids per nephrology. 6. Hypokalemia. Potassium replaced. 7. History of cerebrovascular accident. Continue sequential compression device for deep venous thrombosis prophylaxis and Pepcid for peptic ulcer disease prophylaxis. Problems: Subjective 24 Hr Interval Summary Free Text/Dictation Patient is sedated and ventilated via trach Exam/Review of Systems Vital Signs Vitals Vital Signs Date Time Temp Pulse Resp B/P Pulse Ox O2 Delivery O2 Flow Rate FiO2 10/18/16 10:06 98.5 87 17 143/80 100 10/18/16 08:00 Mechanical Ventilator 10/18/16 07:40 30 Intake and Output 10/17/16 10/17/16 10/18/16 15:00 23:00 07:00 Intake Total 1992.3 ml 1360 ml 610 ml Output Total 950 ml 730 ml 530 ml Balance 1042.3 ml 630 ml 80 ml Exam Constitutional: well developed Head: atraumatic, normocephalic Neck: supple Respiratory: diminished breath sounds Cardiovascular: regular rate and rhythm Gastrointestinal: non-tender, soft Results Result Diagram: 10/18/16 0525 10/18/16 0525 Results 24 hrs Laboratory Tests Test 10/17/16 13:07 10/17/16 17:30 10/17/16 21:23 10/18/16 00:52 Bedside Glucose 112 130 133 150 Test 10/18/16 05:25 10/18/16 05:36 10/18/16 08:12 Alanine Aminotransferase (ALT/SGPT) 45 Anion Gap 10 Basophils # 0.0 Basophils % 0.7 Blood Morphology Comment Blood Urea Nitrogen 6 L Calcium Level 7.1 L Carbon Dioxide Level 26 Chloride Level 87 L Creatinine 0.31 L Eosinophils # 0.1 Eosinophils % 1.7 Glucose Level 126 Hematocrit 28.6 L Hemoglobin 9.6 L Lymphocytes # 0.6 L Lymphocytes % 9.6 L Mean Corpuscular Hemoglobin 31.6 Mean Corpuscular Hemoglobin Concent 33.8 Mean Corpuscular Volume 93.4 Mean Platelet Volume 6.9 L Monocytes # 0.7 Monocytes % 11.0 Neutrophils # 4.9 Neutrophils % 77.0 Nucleated Red Blood Cells # 0.0 Nucleated Red Blood Cells % 0.0 Platelet Count 171 Potassium Level 3.9 Red Blood Count 3.06 L Red Cell Distribution Width 15.8 H Sodium Level 119 *L White Blood Count 6.4 Bedside Glucose 144 146 Medications Medications Current Medications Sodium Chloride (NS) 1,000 ml @ 75 mls/hr [id number] IV Last administered on 10/12 20:05; Admin Dose 75 MLS/HR; Start 10/10/16 at 13:49; Status Future Hold Ondansetron HCl (Zofran Inj) 4 mg Q6H PRN IV NAUSEA AND/OR VOMITING Last administered on 10/16/16 09:08; Admin Dose 4 MG; Start 10/10/16 at 14:00 Nitroglycerin (Nitroglycerin (Sl Tab) 0.4 Mg) 1 tab Q5M PRN SL CHEST PAIN; Start 10/10/16 at 14:00 Acetaminophen (Tylenol Supp) 650 mg Q4H PRN [place] PAIN LEVEL 1-3 OR FEVER Last administered on 10/16/16 22:11; Admin Dose 650 MG; Start 10/10/16 at 14:00 Morphine Sulfate (morphine) 2 mg Q4H PRN IV PAIN LEVEL 7-10; Start 10/10/16 at 14:00 Lorazepam (Ativan) 1 mg Q2H PRN IV ANXIETY Last administered on 10/15/16 20:27 ; Admin Dose 1 MG; Start 10/10/16 at 14:00 Docusate Sodium 100 mg 100 mg Q12H PRN PO CONSTIPATION; Start 10/10/16 at 14:00 Levetiracetam 1000 mg/Sodium Chloride 110 ml @ 440 mls/hr Q12 IVPB Last administered on 10/18/16 10:39; Admin Dose 440 MLS/HR; Start 10/10/16 at 14:00 Cefepime HCl (Maxipime 1gm/50 ml (Pmx)) 50 ml @ 100 mls/hr Q12 IVPB Last administered on 10/18/16 10:39; Admin Dose 100 MLS/HR; Start 10/10/16 at 21:00 Hydralazine HCl (Apresoline) 10 mg Q6H PRN IV ELEVATED BLOOD PRESSURE Last administered on 10/15/16 15:05; Admin Dose 10 MG; Start 10/10/16 at 19:00 Desmopressin Acetate 0.2 mg 0.2 mg TID PO Last administered on 10/18/16 08:15 ; Admin Dose 0.2 MG; Start 10/14/16 at 10:30 Vancomycin HCl/ Sodium Chloride (Vancocin/NS) 250 ml @ 83.333 mls/ hr Q12H IVPB Last administered on 10/18/16 11:06; Admin Dose 83.333 MLS/HR; Start at 20:00 Atorvastatin Calcium (Lipitor) 40 mg QHS GTB Last administered on 10/17/16 21: 09; Admin Dose 40 MG; Start 10/15/16 at 21:00 Benazepril HCl (Lotensin) 10 mg DAILY GTB Last administered on 10/18/16 08:15 ; Admin Dose 10 MG; Start 10/15/16 at 12:00 Docusate Sodium (Colace Liquid Cup) 200 mg DAILY PRN GTB CONSTIPATION Last administered on 10/16/16 08:44; Admin Dose 200 MG; Start 10/15/16 at 12:00 Ferrous Sulfate (Feosol Liquid Cup) 330 mg DAILY GTB Last administered on 08:18; Admin Dose 330 MG; Start 10/16/16 at 09:00 Hydralazine HCl (Apresoline) 25 mg Q6H PRN GTB ELEVATED BLOOD PRESSURE; Start 10/15/16 at 12:00 Mineral Oil (Fleet Mineral Oil Enema) 133 ml DAILY PRN IN CONSTIPATION Last administered on 10/16/16 03:54; Admin Dose 133 ML; Start 10/15/16 at 12:00 Multivitamins Therapeutic (Theragran) 1 tab DAILY PO Last administered on 08:19; Admin Dose 1 TAB; Start 10/15/16 at 12:00 Potassium Chloride (Potassium Chloride Pwd/Soln) 40 meq DAILY GTB Last administered on 10/18/16 08:18; Admin Dose 40 MEQ; Start 10/16/16 at 09:00 Insulin Aspart (Novolog Insulin Pen) NOVOLOG *MILD* ALGORI... Q4 SC Last administered on 10/18/16 08:20; Admin Dose 1 UNIT; Start 10/15/16 at 13:00 Miscellaneous Information 1 ea NOTE XX ; Start 10/15/16 at 21:30 Glucose (Glutose) 15 gm Q15M PRN PO DECREASED GLUCOSE; Start 10/15/16 at 21:30 Glucose (Glutose) 22.5 gm Q15M PRN PO DECREASED GLUCOSE; Start 10/15/16 at 21: 30 Dextrose (D50w Syringe) 25 ml Q15M PRN IV DECREASED GLUCOSE Last administered on 10/16/16 16:31; Admin Dose 25 ML; Start 10/15/16 at 21:30 Dextrose (D50w Syringe) 50 ml Q15M PRN IV DECREASED GLUCOSE; Start 10/15/16 at 21:30 Glucagon (Glucagen) 1 mg Q15M PRN IM DECREASED GLUCOSE; Start 10/15/16 at 21:30 Glucose 15 gm 15 gm Q15M PRN BUCCAL DECREASED GLUCOSE; Start 10/15/16 at 21:30 Potassium Chloride/Sodium Chloride (1/2 NS + KCl 20 Meq) 1,000 ml @ 50 mls/hr Q20H IV Last administered on 10/18/16 00:53; Admin Dose 50 MLS/HR; Start 10/16 at 08:30 Metoclopramide HCl (Reglan) 10 mg Q6 IV Last administered on 10/18/16 05:37; Admin Dose 10 MG; Start 10/16/16 at 18:00 Lactobacillus Acidoph/Bulgaricus (Floranex) 2 tab BID PO Last administered on 08:18; Admin Dose 2 TAB; Start 10/16/16 at 21:00 Lactulose (Enulose) 30 gm BID GTB Last administered on 10/18/16 08:18; Admin Dose 30 GM; Start 10/16/16 at 21:00 Lansoprazole (Prevacid) 30 mg BID@18 GTB Last administered on 10/18/16 05: 37; Admin Dose 30 MG; Start 10/17/16 at 06:00 Carbidopa/Levodopa (Sinemet (25/ 100)) 1 tab TID GTB Last administered on 08:19; Admin Dose 1 TAB; Start 10/16/16 at 21:00 Lidocaine (Lidocaine 5% Oint) 1 applic TID TOP Last administered on 10/17/16 21:11; Admin Dose 1 APPLIC; Start 10/16/16 at 21:00 Metoprolol Tartrate (Lopressor) 12.5 mg BID GTB Last administered on 10/18/16 08:16; Admin Dose 12.5 MG; Start 10/16/16 at 21:00 Metronidazole (Flagyl) 500 mg Q8 GTB Last administered on 10/18/16 05:37; Admin Dose 500 MG; Start 10/16/16 at 22:00 Nystatin (Nystatin Susp) 5 ml QID PO Last administered on 10/18/16 08:19; Admin Dose 5 ML; Start 10/16/16 at 21:00 NORY BARGER Oct 18, 2016 11:25
[2016-10-18] MEDS: ALBUTEROL HFA 8 GM INHALER INH PRN ×2 (16:37→19:44)
[2016-10-18] MEDS: IPRATROPIUM (HFA) 12.9 GM INHALER INH PRN ×2 (16:37→19:57)
[2016-10-18] MEDS: LIDOCAINE 5% 35 GM OINT TOP SCH ×3 (16:43→20:48)
--- NOTE | 2016-10-18 18:29 | CONS ---
Date/Time of Note Date/Time of Note DATE: 10/18/16 TIME: 18:28 Consult Date/Type/Reason Admit Date/Time Oct 10, 2016 at 13:53 Initial Consult Date 10/10/16 Type of Consultation: Pulm Ordering Provider: MADDY HOPKINS MD Subjective No events. Low Na+ noted. Objective Vital Signs Date Time Temp Pulse Resp B/P Pulse Ox O2 Delivery O2 Flow Rate FiO2 10/18/16 17:25 108 10/18/16 16:20 29 94 30 10/18/16 15:51 98.4 135/86 10/18/16 08:00 Mechanical Ventilator Intake and Output 10/17/16 10/17/16 10/18/16 15:00 23:00 07:00 Intake Total 1992.3 ml 1360 ml 610 ml Output Total 950 ml 730 ml 530 ml Balance 1042.3 ml 630 ml 80 ml HEENT: Tracheostomy in place. NECK: Supple, no thyromegaly. CARDIOVASCULAR: Regular rate and rhythm, S1, S2. No murmurs, rubs, or gallops. CHEST: Bilateral rhonchi with occasional wheezing heard. ABDOMEN: Soft, nontender. G-tube site is intact. EXTREMITIES: There is trace bilateral lower extremity edema with muscle wasting. Results/Medications Result Diagram: 10/18/16 0525 10/18/16 0525 Results 24 hrs Laboratory Tests Test 10/17/16 21:23 10/18/16 00:52 10/18/16 05:25 10/18/16 05:36 Bedside Glucose 133 150 144 Alanine Aminotransferase (ALT/SGPT) 45 Anion Gap 10 Basophils # 0.0 Basophils % 0.7 Blood Morphology Comment Blood Urea Nitrogen 6 L Calcium Level 7.1 L Carbon Dioxide Level 26 Chloride Level 87 L Creatinine 0.31 L Eosinophils # 0.1 Eosinophils % 1.7 Glucose Level 126 Hematocrit 28.6 L Hemoglobin 9.6 L Lymphocytes # 0.6 L Lymphocytes % 9.6 L Mean Corpuscular Hemoglobin 31.6 Mean Corpuscular Hemoglobin Concent 33.8 Mean Corpuscular Volume 93.4 Mean Platelet Volume 6.9 L Monocytes # 0.7 Monocytes % 11.0 Neutrophils # 4.9 Neutrophils % 77.0 Nucleated Red Blood Cells # 0.0 Nucleated Red Blood Cells % 0.0 Platelet Count 171 Potassium Level 3.9 Red Blood Count 3.06 L Red Cell Distribution Width 15.8 H Sodium Level 119 *L White Blood Count 6.4 Test 10/18/16 08:12 10/18/16 11:44 10/18/16 17:06 Bedside Glucose 146 167 197 Medications Current Medications Sodium Chloride (NS) 1,000 ml @ 75 mls/hr [id number] IV Last administered on 10/12 20:05; Admin Dose 75 MLS/HR; Start 10/10/16 at 13:49; Status Future Hold Ondansetron HCl (Zofran Inj) 4 mg Q6H PRN IV NAUSEA AND/OR VOMITING Last administered on 10/16/16 09:08; Admin Dose 4 MG; Start 10/10/16 at 14:00 Nitroglycerin (Nitroglycerin (Sl Tab) 0.4 Mg) 1 tab Q5M PRN SL CHEST PAIN; Start 10/10/16 at 14:00 Acetaminophen (Tylenol Supp) 650 mg Q4H PRN [place] PAIN LEVEL 1-3 OR FEVER Last administered on 10/16/16 22:11; Admin Dose 650 MG; Start 10/10/16 at 14:00 Morphine Sulfate (morphine) 2 mg Q4H PRN IV PAIN LEVEL 7-10; Start 10/10/16 at 14:00 Lorazepam (Ativan) 1 mg Q2H PRN IV ANXIETY Last administered on 10/15/16 20:27 ; Admin Dose 1 MG; Start 10/10/16 at 14:00 Docusate Sodium 100 mg 100 mg Q12H PRN PO CONSTIPATION; Start 10/10/16 at 14:00 Levetiracetam/ Sodium Chloride (Keppra Iv/NS) 110 ml @ 440 mls/hr Q12 IVPB Last administered on 10/18/16 10:39; Admin Dose 440 MLS/HR; Start 10/10/16 at 14:00 Hydralazine HCl (Apresoline) 10 mg Q6H PRN IV ELEVATED BLOOD PRESSURE Last administered on 10/15/16 15:05; Admin Dose 10 MG; Start 10/10/16 at 19:00 Desmopressin Acetate (Ddavp) 0.2 mg TID PO Last administered on 10/18/16 13:03 ; Admin Dose 0.2 MG; Start 10/14/16 at 10:30 Atorvastatin Calcium (Lipitor) 40 mg QHS GTB Last administered on 10/17/16 21: 09; Admin Dose 40 MG; Start 10/15/16 at 21:00 Benazepril HCl (Lotensin) 10 mg DAILY GTB Last administered on 10/18/16 08:15 ; Admin Dose 10 MG; Start 10/15/16 at 12:00 Docusate Sodium (Colace Liquid Cup) 200 mg DAILY PRN GTB CONSTIPATION Last administered on 10/16/16 08:44; Admin Dose 200 MG; Start 10/15/16 at 12:00 Ferrous Sulfate (Feosol Liquid Cup) 330 mg DAILY GTB Last administered on 08:18; Admin Dose 330 MG; Start 10/16/16 at 09:00 Hydralazine HCl (Apresoline) 25 mg Q6H PRN GTB ELEVATED BLOOD PRESSURE; Start 10/15/16 at 12:00 Mineral Oil (Fleet Mineral Oil Enema) 133 ml DAILY PRN [place] CONSTIPATION Last administered on 10/16/16 03:54; Admin Dose 133 ML; Start 10/15/16 at 12:00 Multivitamins Therapeutic (Theragran) 1 tab DAILY PO Last administered on 08:19; Admin Dose 1 TAB; Start 10/15/16 at 12:00 Potassium Chloride (Potassium Chloride Pwd/Soln) 40 meq DAILY GTB Last administered on 10/18/16 08:18; Admin Dose 40 MEQ; Start 10/16/16 at 09:00 Miscellaneous Information 1 ea NOTE XX ; Start 10/15/16 at 21:30 Glucose (Glutose) 15 gm Q15M PRN PO DECREASED GLUCOSE; Start 10/15/16 at 21:30 Glucose (Glutose) 22.5 gm Q15M PRN PO DECREASED GLUCOSE; Start 10/15/16 at 21: 30 Dextrose (D50w Syringe) 25 ml Q15M PRN IV DECREASED GLUCOSE Last administered on 10/16/16 16:31; Admin Dose 25 ML; Start 10/15/16 at 21:30 Dextrose (D50w Syringe) 50 ml Q15M PRN IV DECREASED GLUCOSE; Start 10/15/16 at 21:30 Glucagon (Glucagen) 1 mg Q15M PRN IM DECREASED GLUCOSE; Start 10/15/16 at 21:30 Glucose 15 gm 15 gm Q15M PRN BUCCAL DECREASED GLUCOSE; Start 10/15/16 at 21:30 Potassium Chloride/Sodium Chloride (1/2 NS + KCl 20 Meq) 1,000 ml @ 50 mls/hr Q20H IV Last administered on 10/18/16 00:53; Admin Dose 50 MLS/HR; Start 10/16 at 08:30 Metoclopramide HCl (Reglan) 10 mg Q6 IV Last administered on 10/18/16 17:03; Admin Dose 10 MG; Start 10/16/16 at 18:00 Lactobacillus Acidoph/Bulgaricus (Floranex) 2 tab BID PO Last administered on 08:18; Admin Dose 2 TAB; Start 10/16/16 at 21:00 Lactulose (Enulose) 30 gm BID GTB Last administered on 10/18/16 08:18; Admin Dose 30 GM; Start 10/16/16 at 21:00 Lansoprazole (Prevacid) 30 mg BID@06,18 GTB Last administered on 10/18/16 17: 05; Admin Dose 30 MG; Start 10/17/16 at 06:00 Carbidopa/Levodopa (Sinemet (25/ 100)) 1 tab TID GTB Last administered on 13:03; Admin Dose 1 TAB; Start 10/16/16 at 21:00 Lidocaine (Lidocaine 5% Oint) 1 applic TID TOP Last administered on 10/18/16 18:14; Admin Dose 1 APPLIC; Start 10/16/16 at 21:00 Metoprolol Tartrate (Lopressor) 12.5 mg BID GTB Last administered on 10/18/16 08:16; Admin Dose 12.5 MG; Start 10/16/16 at 21:00 Metronidazole (Flagyl) 500 mg Q8 GTB Last administered on 10/18/16 13:03; Admin Dose 500 MG; Start 10/16/16 at 22:00 Nystatin (Nystatin Susp) 5 ml QID PO Last administered on 10/18/16 17:03; Admin Dose 5 ML; Start 10/16/16 at 21:00 Insulin Aspart (Novolog Insulin Pen) NOVOLOG *MILD* ALGORI... Q6 SC Last administered on 2/19/17at 17:08; Admin Dose 2 UNIT; Start 10/18/16 at 12:00 Assessment/Plan Additional Assessment/Plan IMPRESSION: 1. Chronic vent-dependent respiratory failure. 2. Sepsis 3. Seizures, possibly lowering threshold due to infection as well as hyponatremia. 4. Hyponatremia 5. Chronic encephalopathy RECOMMENDATIONS: 1. Vent support 2. Abx 3. TF's 4. Obtain TSH 5. Am labs ELINA BENTLEY MD Oct 18, 2016 18:29
--- NOTE | 2016-10-18 18:36 | CONS ---
Date/Time of Note Date/Time of Note DATE: 10/18/16 TIME: 18:34 Assessment/Plan Assessment/Plan Chief Complaint/Hosp Course SUBJECTIVE: No acute changes. The patient is lying comfortably in bed, nonverbal, noncommunicative. He is afebrile. INDWELLINGS: Trach, PEG, Knapp, peripheral IV. ANTIMICROBIALS: Flagyl PHYSICAL EXAMINATION: GENERAL: Chronically ill-appearing, middle-aged man who is lying comfortably in bed. HEENT: Head atraumatic, normocephalic. Sclerae anicteric. Buccal mucosa dry. NECK: Supple, tracheostomy present. CHEST: Rise symmetrical. Breath sounds diminished to bases. HEART: S1, S2. ABDOMEN: Soft. Bowel tones present. EXTREMITIES: Without cyanosis. Bilateral trace edema. ASSESSMENT: 1. Sepsis, resolving. 2. S/p Enterococcal urinary tract infection. 3. Pneumonia. 4. Respiratory failure, chronic. 5. History of brainstem glioma status post chemotherapy. 6. Seizure disorder. 7. Hyponatremia. Plan: The patient is clinically unchanged. S/p abx dc'd, Continue present care/ Flagyl. Follow recommendations of consultants. DW staff Problems: Consultation Date/Type/Reason Admit Date/Time Oct 10, 2016 at 13:53 Initial Consult Date 10/10/16 Type of Consultation: id Referring Provider: MADDY HOPKINS MD Exam/Review of Systems Vital Signs Vitals Vital Signs Date Time Temp Pulse Resp B/P Pulse Ox O2 Delivery O2 Flow Rate FiO2 10/18/16 17:25 108 10/18/16 16:20 29 94 30 10/18/16 15:51 98.4 135/86 10/18/16 08:00 Mechanical Ventilator Intake and Output 10/17/16 10/17/16 10/18/16 15:00 23:00 07:00 Intake Total 1992.3 ml 1360 ml 610 ml Output Total 950 ml 730 ml 530 ml Balance 1042.3 ml 630 ml 80 ml Results Result Diagram: 10/18/16 0525 10/18/16 0525 Results 24 hrs Laboratory Tests Test 10/17/16 21:23 10/18/16 00:52 10/18/16 05:25 10/18/16 05:36 Bedside Glucose 133 150 144 Alanine Aminotransferase (ALT/SGPT) 45 Anion Gap 10 Basophils # 0.0 Basophils % 0.7 Blood Morphology Comment Blood Urea Nitrogen 6 L Calcium Level 7.1 L Carbon Dioxide Level 26 Chloride Level 87 L Creatinine 0.31 L Eosinophils # 0.1 Eosinophils % 1.7 Glucose Level 126 Hematocrit 28.6 L Hemoglobin 9.6 L Lymphocytes # 0.6 L Lymphocytes % 9.6 L Mean Corpuscular Hemoglobin 31.6 Mean Corpuscular Hemoglobin Concent 33.8 Mean Corpuscular Volume 93.4 Mean Platelet Volume 6.9 L Monocytes # 0.7 Monocytes % 11.0 Neutrophils # 4.9 Neutrophils % 77.0 Nucleated Red Blood Cells # 0.0 Nucleated Red Blood Cells % 0.0 Platelet Count 171 Potassium Level 3.9 Red Blood Count 3.06 L Red Cell Distribution Width 15.8 H Sodium Level 119 *L White Blood Count 6.4 Test 10/18/16 08:12 10/18/16 11:44 10/18/16 17:06 Bedside Glucose 146 167 197 Medications Medications Current Medications Sodium Chloride (NS) 1,000 ml @ 75 mls/hr [id number] IV Last administered on 10/12 20:05; Admin Dose 75 MLS/HR; Start 10/10/16 at 13:49; Status Future Hold Ondansetron HCl (Zofran Inj) 4 mg Q6H PRN IV NAUSEA AND/OR VOMITING Last administered on 10/16/16 09:08; Admin Dose 4 MG; Start 10/10/16 at 14:00 Nitroglycerin (Nitroglycerin (Sl Tab) 0.4 Mg) 1 tab Q5M PRN SL CHEST PAIN; Start 10/10/16 at 14:00 Acetaminophen (Tylenol Supp) 650 mg Q4H PRN [place] PAIN LEVEL 1-3 OR FEVER Last administered on 10/16/16 22:11; Admin Dose 650 MG; Start 10/10/16 at 14:00 Morphine Sulfate (morphine) 2 mg Q4H PRN IV PAIN LEVEL 7-10; Start 10/10/16 at 14:00 Lorazepam (Ativan) 1 mg Q2H PRN IV ANXIETY Last administered on 10/15/16 20:27 ; Admin Dose 1 MG; Start 10/10/16 at 14:00 Docusate Sodium 100 mg 100 mg Q12H PRN PO CONSTIPATION; Start 10/10/16 at 14:00 Levetiracetam/ Sodium Chloride (Keppra Iv/NS) 110 ml @ 440 mls/hr Q12 IVPB Last administered on 10/18/16 10:39; Admin Dose 440 MLS/HR; Start 10/10/16 at 14:00 Hydralazine HCl (Apresoline) 10 mg Q6H PRN IV ELEVATED BLOOD PRESSURE Last administered on 10/15/16 15:05; Admin Dose 10 MG; Start 10/10/16 at 19:00 Desmopressin Acetate (Ddavp) 0.2 mg TID PO Last administered on 10/18/16 13:03 ; Admin Dose 0.2 MG; Start 10/14/16 at 10:30 Atorvastatin Calcium (Lipitor) 40 mg QHS GTB Last administered on 10/17/16 21: 09; Admin Dose 40 MG; Start 10/15/16 at 21:00 Benazepril HCl (Lotensin) 10 mg DAILY GTB Last administered on 10/18/16 08:15 ; Admin Dose 10 MG; Start 10/15/16 at 12:00 Docusate Sodium (Colace Liquid Cup) 200 mg DAILY PRN GTB CONSTIPATION Last administered on 10/16/16 08:44; Admin Dose 200 MG; Start 10/15/16 at 12:00 Ferrous Sulfate (Feosol Liquid Cup) 330 mg DAILY GTB Last administered on 08:18; Admin Dose 330 MG; Start 10/16/16 at 09:00 Hydralazine HCl (Apresoline) 25 mg Q6H PRN GTB ELEVATED BLOOD PRESSURE; Start 10/15/16 at 12:00 Mineral Oil (Fleet Mineral Oil Enema) 133 ml DAILY PRN [place] CONSTIPATION Last administered on 10/16/16 03:54; Admin Dose 133 ML; Start 10/15/16 at 12:00 Multivitamins Therapeutic (Theragran) 1 tab DAILY PO Last administered on 08:19; Admin Dose 1 TAB; Start 10/15/16 at 12:00 Potassium Chloride (Potassium Chloride Pwd/Soln) 40 meq DAILY GTB Last administered on 10/18/16 08:18; Admin Dose 40 MEQ; Start 10/16/16 at 09:00 Miscellaneous Information 1 ea NOTE XX ; Start 10/15/16 at 21:30 Glucose (Glutose) 15 gm Q15M PRN PO DECREASED GLUCOSE; Start 10/15/16 at 21:30 Glucose (Glutose) 22.5 gm Q15M PRN PO DECREASED GLUCOSE; Start 10/15/16 at 21: 30 Dextrose (D50w Syringe) 25 ml Q15M PRN IV DECREASED GLUCOSE Last administered on 10/16/16 16:31; Admin Dose 25 ML; Start 10/15/16 at 21:30 Dextrose (D50w Syringe) 50 ml Q15M PRN IV DECREASED GLUCOSE; Start 10/15/16 at 21:30 Glucagon (Glucagen) 1 mg Q15M PRN IM DECREASED GLUCOSE; Start 10/15/16 at 21:30 Glucose 15 gm 15 gm Q15M PRN BUCCAL DECREASED GLUCOSE; Start 10/15/16 at 21:30 Potassium Chloride/Sodium Chloride (/2 NS + KCl 20 Meq) 1,000 ml @ 50 mls/hr Q20H IV Last administered on 10/18/16 00:53; Admin Dose 50 MLS/HR; Start 10/16 at 08:30 Metoclopramide HCl (Reglan) 10 mg Q6 IV Last administered on 10/18/16 17:03; Admin Dose 10 MG; Start 10/16/16 at 18:00 Lactobacillus Acidoph/Bulgaricus (Floranex) 2 tab BID PO Last administered on 08:18; Admin Dose 2 TAB; Start 10/16/16 at 21:00 Lactulose (Enulose) 30 gm BID GTB Last administered on 10/18/16 08:18; Admin Dose 30 GM; Start 10/16/16 at 21:00 Lansoprazole (Prevacid) 30 mg BID@06,18 GTB Last administered on 10/18/16 17: 05; Admin Dose 30 MG; Start 10/17/16 at 06:00 Carbidopa/Levodopa (Sinemet (25/ 100)) 1 tab TID GTB Last administered on 13:03; Admin Dose 1 TAB; Start 10/16/16 at 21:00 Lidocaine (Lidocaine 5% Oint) 1 applic TID TOP Last administered on 10/18/16 18:14; Admin Dose 1 APPLIC; Start 2/17/17 at 21:00 Metoprolol Tartrate (Lopressor) 12.5 mg BID GTB Last administered on 10/18/16 08:16; Admin Dose 12.5 MG; Start 10/16/16 at 21:00 Metronidazole (Flagyl) 500 mg Q8 GTB Last administered on 10/18/16 13:03; Admin Dose 500 MG; Start 10/16/16 at 22:00 Nystatin (Nystatin Susp) 5 ml QID PO Last administered on 10/18/16 17:03; Admin Dose 5 ML; Start 10/16/16 at 21:00 Insulin Aspart (Novolog Insulin Pen) NOVOLOG *MILD* ALGORI... Q6 SC Last administered on 10/18/16 17:08; Admin Dose 2 UNIT; Start 10/18/16 at 12:00 ROSANGELA CARDONA NP Oct 18, 2016 18:36
--- NOTE | 2016-10-18 18:53 | CONS ---
Date/Time of Note Date/Time of Note DATE: 10/18/16 TIME: 18:49 Assessment/Plan Assessment/Plan Additional Assessment/Plan 1. Severe hyponatremia with a sodium of 119, possibly acute on chronic hyponatremia versus acute severe hyponatremia.- pt went from hyponatremia to hypernatremia with treatment with 3% saline and one dose of tolvaptan - then Improved to normal today wtih D5W IVF and DDAVP 0.2mg PO x2 dose 10/15/16- on again Na dropped to 119 gradually to today 2. Seizures secondary to severe hyponatremia. 3. Sepsis secondary to bilateral pneumonia. 4. Ventilator-dependent respiratory failure, status post tracheostomy, on vent. 5. History of a previous brain tumor, had surgery. Currently, status post ventriculoperitoneal shunt in place. 6. History of a previous cerebellar cerebrovascular accident. PLAN: pt received 3 % saline and tolvaptan one dose on 10/10 and 10/11- went into polyuria, Na went from hyponatremia to hypernatremia- now improved to normal with D5W IVF and 2 dose of DDAVP 0.2mg- again today 10/16- na dropped from 140 to 122- given 3% hypertonic saline for another 12 hr - did not respond well, Na again dropped to 119- One dose of tolvaptan 15 mg X 1 10/18/16 onTube feeding with diabetosource- continue IVF to 1/2 NS with 20 KCL at 50 cc/ hr monitor Na, pt has acute on chronic hyponatremia ventilator care as per pulmonary will follow up Consultation Date/Type/Reason Admit Date/Time Oct 10, 2016 at 13:53 Initial Consult Date 10/10/16 Type of Consultation: NEPHROLOGY Reason for Consultation Hyponatremia >Hypernatremia>Hyponatremia Referring Provider: MADDY HOPKINS MD 24 HR Interval Summary Free Text/Dictation Na dropped to 119, on IVF Exam/Review of Systems Vital Signs Vitals Vital Signs Date Time Temp Pulse Resp B/P Pulse Ox O2 Delivery O2 Flow Rate FiO2 10/18/16 17:25 108 10/18/16 16:20 29 94 30 10/18/16 15:51 98.4 135/86 10/18/16 08:00 Mechanical Ventilator Intake and Output 10/17/16 10/17/16 10/18/16 15:00 23:00 07:00 Intake Total 1992.3 ml 1360 ml 610 ml Output Total 950 ml 730 ml 530 ml Balance 1042.3 ml 630 ml 80 ml Exam HEENT: Tracheostomy site is clear. LUNGS: Bilateral coarse breath sounds with bilateral basilar rales present and lower lobe rhonchi present. HEART: S1, S2, tachycardia, no murmur. ABDOMEN: Soft. G-tube in place. EXTREMITIES: No clubbing, cyanosis, or edema. The patient is very debilitated. PSYCHIATRIC: Not able to assess. NEUROLOGICAL: Not able to assess. , + steve catheter in place Results Result Diagram: 10/18/1652410/18/16524 Results 24 hrs Laboratory Tests Test 10/17/16 21:23 10/18/16 00:52 10/18/16 05:25 10/18/16 05:36 Bedside Glucose 133 150 144 Alanine Aminotransferase (ALT/SGPT) 45 Anion Gap 10 Basophils # 0.0 Basophils % 0.7 Blood Morphology Comment Blood Urea Nitrogen 6 L Calcium Level 7.1 L Carbon Dioxide Level 26 Chloride Level 87 L Creatinine 0.31 L Eosinophils # 0.1 Eosinophils % 1.7 Glucose Level 126 Hematocrit 28.6 L Hemoglobin 9.6 L Lymphocytes # 0.6 L Lymphocytes % 9.6 L Mean Corpuscular Hemoglobin 31.6 Mean Corpuscular Hemoglobin Concent 33.8 Mean Corpuscular Volume 93.4 Mean Platelet Volume 6.9 L Monocytes # 0.7 Monocytes % 11.0 Neutrophils # 4.9 Neutrophils % 77.0 Nucleated Red Blood Cells # 0.0 Nucleated Red Blood Cells % 0.0 Platelet Count 171 Potassium Level 3.9 Red Blood Count 3.06 L Red Cell Distribution Width 15.8 H Sodium Level 119 *L White Blood Count 6.4 Test 10/18/16 08:12 10/18/16 11:44 10/18/16 17:06 Bedside Glucose 146 167 197 Medications Medications Current Medications Sodium Chloride (NS) 1,000 ml @ 75 mls/hr [id number] IV Last administered on 10/12t 20:05; Admin Dose 75 MLS/HR; Start 10/10/16 at 13:49; Status Future Hold Ondansetron HCl (Zofran Inj) 4 mg Q6H PRN IV NAUSEA AND/OR VOMITING Last administered on 10/16/16 09:08; Admin Dose 4 MG; Start 10/10/16 at 14:00 Nitroglycerin (Nitroglycerin (Sl Tab) 0.4 Mg) 1 tab Q5M PRN SL CHEST PAIN; Start 10/10/16 at 14:00 Acetaminophen (Tylenol Supp) 650 mg Q4H PRN [place] PAIN LEVEL 1-3 OR FEVER Last administered on 10/16/16 22:11; Admin Dose 650 MG; Start 10/10/16 at 14:00 Morphine Sulfate (morphine) 2 mg Q4H PRN IV PAIN LEVEL 7-10; Start 10/10/16 at 14:00 Lorazepam (Ativan) 1 mg Q2H PRN IV ANXIETY Last administered on 10/15/16 20:27 ; Admin Dose 1 MG; Start 10/10/16 at 14:00 Docusate Sodium 100 mg 100 mg Q12H PRN PO CONSTIPATION; Start 10/10/16 at 14:00 Levetiracetam/ Sodium Chloride (Keppra Iv/NS) 110 ml @ 440 mls/hr Q12 IVPB Last administered on 10/18/16 10:39; Admin Dose 440 MLS/HR; Start 10/10/16 at 14:00 Hydralazine HCl (Apresoline) 10 mg Q6H PRN IV ELEVATED BLOOD PRESSURE Last administered on 10/15/16 15:05; Admin Dose 10 MG; Start 10/10/16 at 19:00 Desmopressin Acetate (Ddavp) 0.2 mg TID PO Last administered on 10/18/16 13:03 ; Admin Dose 0.2 MG; Start 10/14/16 at 10:30 Atorvastatin Calcium (Lipitor) 40 mg QHS GTB Last administered on 10/17/16 21: 09; Admin Dose 40 MG; Start 10/15/16 at 21:00 Benazepril HCl (Lotensin) 10 mg DAILY GTB Last administered on 10/18/16 08:15 ; Admin Dose 10 MG; Start 10/15/16 at 12:00 Docusate Sodium (Colace Liquid Cup) 200 mg DAILY PRN GTB CONSTIPATION Last administered on 10/16/16 08:44; Admin Dose 200 MG; Start 10/15/16 at 12:00 Ferrous Sulfate (Feosol Liquid Cup) 330 mg DAILY GTB Last administered on 08:18; Admin Dose 330 MG; Start 10/16/16 at 09:00 Hydralazine HCl (Apresoline) 25 mg Q6H PRN GTB ELEVATED BLOOD PRESSURE; Start 10/15/16 at 12:00 Mineral Oil (Fleet Mineral Oil Enema) 133 ml DAILY PRN [place] CONSTIPATION Last administered on 10/16/16 03:54; Admin Dose 133 ML; Start 10/15/16 at 12:00 Multivitamins Therapeutic (Theragran) 1 tab DAILY PO Last administered on 08:19; Admin Dose 1 TAB; Start 10/15/16 at 12:00 Potassium Chloride (Potassium Chloride Pwd/Soln) 40 meq DAILY GTB Last administered on 10/18/16 08:18; Admin Dose 40 MEQ; Start 10/16/16 at 09:00 Miscellaneous Information 1 ea NOTE XX ; Start 10/15/16 at 21:30 Glucose (Glutose) 15 gm Q15M PRN PO DECREASED GLUCOSE; Start 10/15/16 at 21:30 Glucose (Glutose) 22.5 gm Q15M PRN PO DECREASED GLUCOSE; Start 10/15/16 at 21: 30 Dextrose (D50w Syringe) 25 ml Q15M PRN IV DECREASED GLUCOSE Last administered on 10/16/16 16:31; Admin Dose 25 ML; Start 10/15/16 at 21:30 Dextrose (D50w Syringe) 50 ml Q15M PRN IV DECREASED GLUCOSE; Start 10/15/16 at 21:30 Glucagon (Glucagen) 1 mg Q15M PRN IM DECREASED GLUCOSE; Start 10/15/16 at 21:30 Glucose 15 gm 15 gm Q15M PRN BUCCAL DECREASED GLUCOSE; Start 10/15/16 at 21:30 Potassium Chloride/Sodium Chloride (1/2 NS + KCl 20 Meq) 1,000 ml @ 50 mls/hr Q20H IV Last administered on 10/18/16 00:53; Admin Dose 50 MLS/HR; Start 10/16 at 08:30 Metoclopramide HCl (Reglan) 10 mg Q6 IV Last administered on 10/18/16 17:03; Admin Dose 10 MG; Start 10/16/16 at 18:00 Lactobacillus Acidoph/Bulgaricus (Floranex) 2 tab BID PO Last administered on 08:18; Admin Dose 2 TAB; Start 10/16/16 at 21:00 Lactulose (Enulose) 30 gm BID GTB Last administered on 10/18/16 08:18; Admin Dose 30 GM; Start 10/16/16 at 21:00 Lansoprazole (Prevacid) 30 mg BID@,18 GTB Last administered on 10/18/16 17: 05; Admin Dose 30 MG; Start 10/17/16 at 06:00 Carbidopa/Levodopa (Sinemet (25/ 100)) 1 tab TID GTB Last administered on 13:03; Admin Dose 1 TAB; Start 10/16/16 at 21:00 Lidocaine (Lidocaine 5% Oint) 1 applic TID TOP Last administered on 10/18/16 18:14; Admin Dose 1 APPLIC; Start 10/16/16 at 21:00 Metoprolol Tartrate (Lopressor) 12.5 mg BID GTB Last administered on 10/18/16 08:16; Admin Dose 12.5 MG; Start 10/16/16 at 21:00 Metronidazole (Flagyl) 500 mg Q8 GTB Last administered on 10/18/16 13:03; Admin Dose 500 MG; Start 10/16/16 at 22:00 Nystatin (Nystatin Susp) 5 ml QID PO Last administered on 10/18/16 17:03; Admin Dose 5 ML; Start 10/16/16 at 21:00 Insulin Aspart (Novolog Insulin Pen) NOVOLOG *MILD* ALGORI... Q6 SC Last administered on 10/18/16 17:08; Admin Dose 2 UNIT; Start 10/18/16 at 12:00 LISSA PARK MD Oct 18, 2016 18:53
[2016-10-18] MEDS: ATORVASTATIN 40 MG TAB GTB SCH (20:48)
[2016-10-19] VITALS (25 sets, daily range): BP systolic 100–121; BP diastolic 55–73; PULSE 80–98; RESP 14–21
[2016-10-19] MEDS: METOCLOPRAMIDE 10 MG INJ IV SCH ×4 (00:38→17:41)
[2016-10-19] MEDS: INSULIN ASPART [NOVOLOG] 3 ML PEN SC SCH ×4 (00:40→18:08)
[2016-10-19] MEDS: 1/2 NS + KCL 20 MEQ 1,000 ML IV SCH ×2 (01:27→21:34)
[2016-10-19] MEDS: LANSOPRAZOLE 30 MG CAP GTB SCH ×2 (05:21→17:41)
[2016-10-19] MEDS: metroNIDAZOLE 500 MG TAB GTB SCH ×3 (05:21→21:32)
[2016-10-19 07:39] LABS: BASOPHILS % 0.5 % (0.0-2.0); EOSINOPHILS % 0.6 % (0.0-7.0); HEMATOCRIT 31.3 % (42.0-52.0); HEMOGLOBIN 10.6 g/dl (14.0-18.0); LYMPHOCYTES # 0.4 10^3/ul (0.8-2.9); LYMPHOCYTES % 4.9 % (15.0-51.0); MEAN CORPUSCULAR HEMOGLOBIN 31.4 pg (29.0-33.0); MEAN CORPUSCULAR HGB CONC 33.9 g/dl (32.0-37.0); MEAN CORPUSCULAR VOLUME 92.6 fl (82.0-101.0); MONOCYTE # 0.9 10^3/ul (0.3-0.9); MONOCYTES % 10.3 % (0.0-11.0); NEUTROPHILS % 83.7 % (39.0-77.0); PLATELET COUNT 203 10^3/UL (140-440); RED BLOOD COUNT 3.38 10^6/ul (4.70-6.10); RED CELL DISTRIBUTION WIDTH 15.6 % (11.5-14.5); UNCORRECTED WBC 8.3 10^3/ul (4.8-10.8); WHITE BLOOD COUNT 8.3 10^3/ul (4.8-10.8)
[2016-10-19 07:42] LABS: CONDITION 1; LH ANALYZER COMMENTS 1
[2016-10-19 07:52] LABS: CREATININE 0.33 mg/dl (0.61-1.24)
[2016-10-19] MEDS: FERROUS SULFATE 60 MG/ML 5ML CUP GTB SCH (08:21)
[2016-10-19] MEDS: LACTULOSE 30ML CUP GTB SCH ×2 (08:21→21:32)
[2016-10-19] MEDS: LACTOBACILLUS CHEW TAB PO SCH ×2 (08:22→21:33)
[2016-10-19] MEDS: POTASSIUM CHLORIDE 20 MEQ POWDER FOR ORAL SOLN GTB SCH (08:22)
[2016-10-19] MEDS: NYSTATIN SUSP 5 ML CUP PO SCH ×4 (08:22→21:32)
[2016-10-19] MEDS: DESMOPRESSIN 0.1 MG TAB PO SCH ×3 (08:23→21:33)
[2016-10-19] MEDS: CARBIDOPA/LEVODOPA (25/100) TAB GTB SCH ×3 (08:23→21:32)
[2016-10-19] MEDS: BENAZEPRIL 10 MG TAB GTB SCH (08:24)
[2016-10-19] MEDS: METOPROLOL 25 MG TAB GTB SCH ×2 (08:24→21:35)
[2016-10-19] MEDS: MULTIVITAMINS THERAPEUTIC TAB PO SCH (08:24)
[2016-10-19] MEDS: LIDOCAINE 5% 35 GM OINT TOP SCH ×3 (08:35→21:35)
[2016-10-19] MEDS: LEVETIRACETAM IV 1,000 MG in SOD CHLORIDE 0.9% 100 ML IVPB SCH ×2 (08:43→21:34)
--- NOTE | 2016-10-19 11:31 | CONS ---
Date/Time of Note Date/Time of Note DATE: 10/19/16 TIME: 11:28 Assessment/Plan Assessment/Plan Additional Assessment/Plan Ventilator settings; AC of 14, tidal volume 500, PEEP of 5, 30% FiO2. Next Assessment and recommendation; next 1. Patient with a history of chronic respiratory failure admitted for UTI leading to severe sepsis with significant clinical improvement. 2. Stable seizure disorder. 3. History of anoxic encephalopathy patient remains ventilator dependent. 4. Hypertension. 5. Diabetes insipidus causing severe hypernatremia, responding well to desmopressin. Continue current supportive care. Consultation Date/Type/Reason Admit Date/Time Oct 10, 2016 at 13:53 Initial Consult Date 10/10/16 Type of Consultation: Pulmonary Referring Provider: MADDY HOPKINS MD 24 HR Interval Summary Free Text/Dictation Patient condition is stable. Has been transferred out of ICU to telemetry unit. Remains ventilator dependent due to severe anoxic brain injury. Has remained hemodynamically stable. General examination; middle-aged man, on ventilator via tracheostomy unresponsive. Exam/Review of Systems Vital Signs Vitals Vital Signs Date Time Temp Pulse Resp B/P Pulse Ox O2 Delivery O2 Flow Rate FiO2 10/19/16 09:44 91 10/19/16 09:15 14 99 30 10/19/16 08:14 98.6 117/73 10/18/16 08:00 Mechanical Ventilator Intake and Output 10/18/16 10/18/16 10/19/16 15:00 23:00 07:00 Intake Total 400 ml 1060 ml 610 ml Output Total 3500 ml 4000 ml Balance 400 ml -2440 ml -3390 ml Exam HEENT examination; supple neck, no JVD. Pupils are midsize and sluggishly reactive to light bilaterally. No neck masses. No thyromegaly. Tracheostomy in place with clean insertion site. Dentition is fair. Well-healed frontal craniotomy scars are present. Chest examination; diminished but clear breath sounds bilaterally. S1-S2 audible, no murmurs. Regular rhythm. Abdomen examination; soft, G-tube in place. No organomegaly. Bowel sounds audible. Extremity examination; no peripheral edema. AUDIO VISUAL TECHNICIAN examination; patient remains unresponsive. Results Result Diagram: 10/19/16 0631 10/19/16 0631 Results 24 hrs Laboratory Tests Test 10/18/16 11:44 10/18/16 17:06 10/19/16 00:37 10/19/16 05:25 Bedside Glucose 167 197 225 H 241 H Test 10/19/16 06:31 Anion Gap 9 Basophils # 0.0 Basophils % 0.5 Blood Morphology Comment Blood Urea Nitrogen 5 L Calcium Level 8.0 L Carbon Dioxide Level 30 Chloride Level 102 # Creatinine 0.33 L Eosinophils # 0.0 Eosinophils % 0.6 Glucose Level 203 Hematocrit 31.3 L Hemoglobin 10.6 L Lymphocytes # 0.4 L Lymphocytes % 4.9 L Mean Corpuscular Hemoglobin 31.4 Mean Corpuscular Hemoglobin Concent 33.9 Mean Corpuscular Volume 92.6 Mean Platelet Volume 7.0 L Monocytes # 0.9 Monocytes % 10.3 Neutrophils # 7.0 Neutrophils % 83.7 H Nucleated Red Blood Cells # 0.0 Nucleated Red Blood Cells % 0.0 Platelet Count 203 Potassium Level 4.0 Red Blood Count 3.38 L Red Cell Distribution Width 15.6 H Sodium Level 137 # White Blood Count 8.3 # Medications Medications Current Medications Sodium Chloride (NS) 1,000 ml @ 75 mls/hr [id number] IV Last administered on 10/12 20:05; Admin Dose 75 MLS/HR; Start 10/10/16 at 13:49; Status Future Hold Ondansetron HCl (Zofran Inj) 4 mg Q6H PRN IV NAUSEA AND/OR VOMITING Last administered on 10/16/16 09:08; Admin Dose 4 MG; Start 10/10/16 at 14:00 Nitroglycerin (Nitroglycerin (Sl Tab) 0.4 Mg) 1 tab Q5M PRN SL CHEST PAIN; Start 10/10/16 at 14:00 Acetaminophen (Tylenol Supp) 650 mg Q4H PRN [place] PAIN LEVEL 1-3 OR FEVER Last administered on 10/16/16 22:11; Admin Dose 650 MG; Start 10/10/16 at 14:00 Morphine Sulfate (morphine) 2 mg Q4H PRN IV PAIN LEVEL 7-10; Start 10/10/16 at 14:00 Lorazepam (Ativan) 1 mg Q2H PRN IV ANXIETY Last administered on 10/15/16 20:27 ; Admin Dose 1 MG; Start 10/10/16 at 14:00 Docusate Sodium 100 mg 100 mg Q12H PRN PO CONSTIPATION; Start 10/10/16 at 14:00 Levetiracetam/ Sodium Chloride (Keppra Iv/NS) 110 ml @ 440 mls/hr Q12 IVPB Last administered on 10/19/16 08:43; Admin Dose 440 MLS/HR; Start 10/10/16 at 14:00 Hydralazine HCl (Apresoline) 10 mg Q6H PRN IV ELEVATED BLOOD PRESSURE Last administered on 10/15/16 15:05; Admin Dose 10 MG; Start 10/10/16 at 19:00 Desmopressin Acetate (Ddavp) 0.2 mg TID PO Last administered on 10/19/16 08:23 ; Admin Dose 0.2 MG; Start 10/14/16 at 10:30 Atorvastatin Calcium (Lipitor) 40 mg QHS GTB Last administered on 10/18/16 20: 48; Admin Dose 40 MG; Start 10/15/16 at 21:00 Benazepril HCl (Lotensin) 10 mg DAILY GTB Last administered on 10/19/16 08:24 ; Admin Dose 10 MG; Start 10/15/16 at 12:00 Docusate Sodium (Colace Liquid Cup) 200 mg DAILY PRN GTB CONSTIPATION Last administered on 10/16/16 08:44; Admin Dose 200 MG; Start 10/15/16 at 12:00 Ferrous Sulfate (Feosol Liquid Cup) 330 mg DAILY GTB Last administered on 08:21; Admin Dose 330 MG; Start 10/16/16 at 09:00 Hydralazine HCl (Apresoline) 25 mg Q6H PRN GTB ELEVATED BLOOD PRESSURE; Start 10/15/16 at 12:00 Mineral Oil (Fleet Mineral Oil Enema) 133 ml DAILY PRN [place] CONSTIPATION Last administered on 10/16/16 03:54; Admin Dose 133 ML; Start 10/15/16 at 12:00 Multivitamins Therapeutic (Theragran) 1 tab DAILY PO Last administered on 08:24; Admin Dose 1 TAB; Start 10/15/16 at 12:00 Potassium Chloride (Potassium Chloride Pwd/Soln) 40 meq DAILY GTB Last administered on 10/19/16 08:22; Admin Dose 40 MEQ; Start 10/16/16 at 09:00 Miscellaneous Information 1 ea NOTE XX ; Start 10/15/16 at 21:30 Glucose (Glutose) 15 gm Q15M PRN PO DECREASED GLUCOSE; Start 10/15/16 at 21:30 Glucose (Glutose) 22.5 gm Q15M PRN PO DECREASED GLUCOSE; Start 10/15/16 at 21: 30 Dextrose (D50w Syringe) 25 ml Q15M PRN IV DECREASED GLUCOSE Last administered on 10/16/16 16:31; Admin Dose 25 ML; Start 10/15/16 at 21:30 Dextrose (D50w Syringe) 50 ml Q15M PRN IV DECREASED GLUCOSE; Start 10/15/16 at 21:30 Glucagon (Glucagen) 1 mg Q15M PRN IM DECREASED GLUCOSE; Start 10/15/16 at 21:30 Glucose 15 gm 15 gm Q15M PRN BUCCAL DECREASED GLUCOSE; Start 10/15/16 at 21:30 Potassium Chloride/Sodium Chloride (1/2 NS + KCl 20 Meq) 1,000 ml @ 50 mls/hr Q20H IV Last administered on 10/19/16 01:27; Admin Dose 50 MLS/HR; Start 10/16 at 08:30 Metoclopramide HCl (Reglan) 10 mg Q6 IV Last administered on 10/19/16 05:22; Admin Dose 10 MG; Start 10/16/16 at 18:00 Lactobacillus Acidoph/Bulgaricus (Floranex) 2 tab BID PO Last administered on 08:22; Admin Dose 2 TAB; Start 10/16/16 at 21:00 Lactulose (Enulose) 30 gm BID GTB Last administered on 10/19/16 08:21; Admin Dose 30 GM; Start 10/16/16 at 21:00 Lansoprazole (Prevacid) 30 mg BID@06,18 GTB Last administered on 10/19/16 05: 21; Admin Dose 30 MG; Start 10/17/16 at 06:00 Carbidopa/Levodopa (Sinemet (25/ 100)) 1 tab TID GTB Last administered on 08:23; Admin Dose 1 TAB; Start 10/16/16 at 21:00 Lidocaine (Lidocaine 5% Oint) 1 applic TID TOP Last administered on 10/19/16 08:35; Admin Dose 1 APPLIC; Start 10/16/16 at 21:00 Metoprolol Tartrate (Lopressor) 12.5 mg BID GTB Last administered on 10/19/16 08:24; Admin Dose 12.5 MG; Start 10/16/16 at 21:00 Metronidazole (Flagyl) 500 mg Q8 GTB Last administered on 10/19/16 05:21; Admin Dose 500 MG; Start 10/16/16 at 22:00 Nystatin (Nystatin Susp) 5 ml QID PO Last administered on 10/19/16 08:22; Admin Dose 5 ML; Start 10/16/16 at 21:00 Insulin Aspart (Novolog Insulin Pen) NOVOLOG *MILD* ALGORI... Q6 SC Last administered on 10/19/16 05:28; Admin Dose 3 UNIT; Start 10/18/16 at 12:00 JUANA DE LEÓN Oct 19, 2016 11:31
--- NOTE | 2016-10-19 14:39 | CONS ---
Date/Time of Note Date/Time of Note DATE: 10/19/16 TIME: 14:38 Assessment/Plan Assessment/Plan Chief Complaint/Hosp Course SUBJECTIVE: No acute changes. Noncommunicative, lying comfortably in bed, afebrile. INDWELLINGS: Trach, PEG, Knapp, peripheral IV. ANTIMICROBIALS: Flagyl PHYSICAL EXAMINATION: GENERAL: Chronically ill-appearing, middle-aged man who is lying comfortably in bed. HEENT: Head atraumatic, normocephalic. Sclerae anicteric. Buccal mucosa dry. NECK: Supple, tracheostomy present. CHEST: Rise symmetrical. Breath sounds diminished to bases. HEART: S1, S2. ABDOMEN: Soft. Bowel tones present. EXTREMITIES: Without cyanosis. Bilateral trace edema. ASSESSMENT: 1. Sepsis, resolving. 2. S/p Enterococcal urinary tract infection. 3. Pneumonia. 4. Respiratory failure, chronic. 5. History of brainstem glioma status post chemotherapy. 6. Seizure disorder. 7. Hyponatremia. Plan: The patient is clinically unchanged. Continue present care. Follow recommendations of consultants. DW staff Problems: Consultation Date/Type/Reason Admit Date/Time Oct 10, 2016 at 13:53 Initial Consult Date 10/10/16 Type of Consultation: id Referring Provider: MADDY HOPKINS MD Exam/Review of Systems Vital Signs Vitals Vital Signs Date Time Temp Pulse Resp B/P Pulse Ox O2 Delivery O2 Flow Rate FiO2 10/19/16 14:08 87 10/19/16 13:20 21 98 30 10/19/16 12:44 98.0 121/73 10/18/16 08:00 Mechanical Ventilator Intake and Output 10/18/16 10/18/16 10/19/16 15:00 23:00 07:00 Intake Total 400 ml 1060 ml 610 ml Output Total 3500 ml 4000 ml Balance 400 ml -2440 ml -3390 ml Results Result Diagram: 10/19/16 0631 10/19/16 0631 Results 24 hrs Laboratory Tests Test 10/18/16 17:06 10/19/16 00:37 10/19/16 05:25 10/19/16 06:31 Bedside Glucose 197 225 H 241 H Anion Gap 9 Basophils # 0.0 Basophils % 0.5 Blood Morphology Comment Blood Urea Nitrogen 5 L Calcium Level 8.0 L Carbon Dioxide Level 30 Chloride Level 102 # Creatinine 0.33 L Eosinophils # 0.0 Eosinophils % 0.6 Glucose Level 203 Hematocrit 31.3 L Hemoglobin 10.6 L Lymphocytes # 0.4 L Lymphocytes % 4.9 L Mean Corpuscular Hemoglobin 31.4 Mean Corpuscular Hemoglobin Concent 33.9 Mean Corpuscular Volume 92.6 Mean Platelet Volume 7.0 L Monocytes # 0.9 Monocytes % 10.3 Neutrophils # 7.0 Neutrophils % 83.7 H Nucleated Red Blood Cells # 0.0 Nucleated Red Blood Cells % 0.0 Platelet Count 203 Potassium Level 4.0 Red Blood Count 3.38 L Red Cell Distribution Width 15.6 H Sodium Level 137 # White Blood Count 8.3 # Test 10/19/16 12:14 Bedside Glucose 232 H Medications Medications Current Medications Sodium Chloride (NS) 1,000 ml @ 75 mls/hr [id number] IV Last administered on 10/12 20:05; Admin Dose 75 MLS/HR; Start 10/10/16 at 13:49; Status Future Hold Ondansetron HCl (Zofran Inj) 4 mg Q6H PRN IV NAUSEA AND/OR VOMITING Last administered on 10/16/16 09:08; Admin Dose 4 MG; Start 10/10/16 at 14:00 Nitroglycerin (Nitroglycerin (Sl Tab) 0.4 Mg) 1 tab Q5M PRN SL CHEST PAIN; Start 10/10/16 at 14:00 Acetaminophen (Tylenol Supp) 650 mg Q4H PRN [place] PAIN LEVEL 1-3 OR FEVER Last administered on 10/16/16 22:11; Admin Dose 650 MG; Start 10/10/16 at 14:00 Morphine Sulfate (morphine) 2 mg Q4H PRN IV PAIN LEVEL 7-10; Start 10/10/16 at 14:00 Lorazepam (Ativan) 1 mg Q2H PRN IV ANXIETY Last administered on 10/15/16 20:27 ; Admin Dose 1 MG; Start 10/10/16 at 14:00 Docusate Sodium 100 mg 100 mg Q12H PRN PO CONSTIPATION; Start 10/10/16 at 14:00 Levetiracetam/ Sodium Chloride (Keppra Iv/NS) 110 ml @ 440 mls/hr Q12 IVPB Last administered on 10/19/16 08:43; Admin Dose 440 MLS/HR; Start 10/10/16 at 14:00 Hydralazine HCl (Apresoline) 10 mg Q6H PRN IV ELEVATED BLOOD PRESSURE Last administered on 10/15/16 15:05; Admin Dose 10 MG; Start 10/10/16 at 19:00 Desmopressin Acetate (Ddavp) 0.2 mg TID PO Last administered on 10/19/16 12:49 ; Admin Dose 0.2 MG; Start 10/14/16 at 10:30 Atorvastatin Calcium (Lipitor) 40 mg QHS GTB Last administered on 10/18/16 20: 48; Admin Dose 40 MG; Start 10/15/16 at 21:00 Benazepril HCl (Lotensin) 10 mg DAILY GTB Last administered on 10/19/16 08:24 ; Admin Dose 10 MG; Start 10/15/16 at 12:00 Docusate Sodium (Colace Liquid Cup) 200 mg DAILY PRN GTB CONSTIPATION Last administered on 10/16/16 08:44; Admin Dose 200 MG; Start 10/15/16 at 12:00 Ferrous Sulfate (Feosol Liquid Cup) 330 mg DAILY GTB Last administered on 08:21; Admin Dose 330 MG; Start 10/16/16 at 09:00 Hydralazine HCl (Apresoline) 25 mg Q6H PRN GTB ELEVATED BLOOD PRESSURE; Start 10/15/16 at 12:00 Mineral Oil (Fleet Mineral Oil Enema) 133 ml DAILY PRN [place] CONSTIPATION Last administered on 10/16/16 03:54; Admin Dose 133 ML; Start 10/15/16 at 12:00 Multivitamins Therapeutic (Theragran) 1 tab DAILY PO Last administered on 08:24; Admin Dose 1 TAB; Start 10/15/16 at 12:00 Potassium Chloride (Potassium Chloride Pwd/Soln) 40 meq DAILY GTB Last administered on 10/19/16 08:22; Admin Dose 40 MEQ; Start 10/16/16 at 09:00 Miscellaneous Information 1 ea NOTE XX ; Start 10/15/16 at 21:30 Glucose (Glutose) 15 gm Q15M PRN PO DECREASED GLUCOSE; Start 10/15/16 at 21:30 Glucose (Glutose) 22.5 gm Q15M PRN PO DECREASED GLUCOSE; Start 10/15/16 at 21: 30 Dextrose (D50w Syringe) 25 ml Q15M PRN IV DECREASED GLUCOSE Last administered on 10/16/16 16:31; Admin Dose 25 ML; Start 10/15/16 at 21:30 Dextrose (D50w Syringe) 50 ml Q15M PRN IV DECREASED GLUCOSE; Start 10/15/16 at 21:30 Glucagon (Glucagen) 1 mg Q15M PRN IM DECREASED GLUCOSE; Start 10/15/16 at 21:30 Glucose 15 gm 15 gm Q15M PRN BUCCAL DECREASED GLUCOSE; Start 10/15/16 at 21:30 Potassium Chloride/Sodium Chloride (1/2 NS + KCl 20 Meq) 1,000 ml @ 50 mls/hr Q20H IV Last administered on 10/19/16 01:27; Admin Dose 50 MLS/HR; Start 10/16 at 08:30 Metoclopramide HCl (Reglan) 10 mg Q6 IV Last administered on 10/19/16 12:48; Admin Dose 10 MG; Start 10/16/16 at 18:00 Lactobacillus Acidoph/Bulgaricus (Floranex) 2 tab BID PO Last administered on 08:22; Admin Dose 2 TAB; Start 10/16/16 at 21:00 Lactulose (Enulose) 30 gm BID GTB Last administered on 10/19/16 08:21; Admin Dose 30 GM; Start 10/16/16 at 21:00 Lansoprazole (Prevacid) 30 mg BID@06,18 GTB Last administered on 10/19/16 05: 21; Admin Dose 30 MG; Start 10/17/16 at 06:00 Carbidopa/Levodopa (Sinemet (25/ 100)) 1 tab TID GTB Last administered on 12:49; Admin Dose 1 TAB; Start 10/16/16 at 21:00 Lidocaine (Lidocaine 5% Oint) 1 applic TID TOP Last administered on 10/19/16 12:49; Admin Dose 1 APPLIC; Start 10/16/16 at 21:00 Metoprolol Tartrate (Lopressor) 12.5 mg BID GTB Last administered on 10/19/16 08:24; Admin Dose 12.5 MG; Start 2/17/17 at 21:00 Metronidazole (Flagyl) 500 mg Q8 GTB Last administered on 10/19/16 05:21; Admin Dose 500 MG; Start 10/16/16 at 22:00 Nystatin (Nystatin Susp) 5 ml QID PO Last administered on 10/19/16 12:48; Admin Dose 5 ML; Start 10/16/16 at 21:00 Insulin Aspart (Novolog Insulin Pen) NOVOLOG *MILD* ALGORI... Q6 SC Last administered on 10/19/16 12:47; Admin Dose 3 UNIT; Start 10/18/16 at 12:00 ROSANGELA CARDONA NP Oct 19, 2016 14:39
--- NOTE | 2016-10-19 17:49 | PN ---
Date/Time of Note Date/Time of Note DATE: 10/19/16 TIME: 17:43 Assessment/Plan VTE Prophylaxis VTE Prophylaxis Intervention: SCD's Lines/Catheters IV Catheter Type (from Nrs): Peripheral IV Urinary Cath still in place: Yes Reason Cath still needed: urinary retention Assessment/Plan Chief Complaint/Hosp Course ASSESSMENT AND PLAN: 1. Sepsis secondary to urinary tract infection and healthcare-acquired pneumonia. Patient is followed by Dr. Sales in infectious disease consultation. Continue antibiotics per ID. 2. Ventilator dependent respiratory failure. Dr. Unger is following from pulmonology standpoint. Continue bronchodilators and ventilatory support. 3. 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 4. Seizure disorder. Continue Keppra. 5. Hypertension, continue benazepril and hydralazine. 5. Hyponatremia, improved on DDAVP. Patient is followed by Dr. Tovar in nephrology consultation. 6. History of cerebrovascular accident. Continue sequential compression device for deep venous thrombosis prophylaxis and Pepcid for peptic ulcer disease prophylaxis. Further recommendations based on clinical course. Plan of care discussed with Dr. Desir. Problems: Exam/Review of Systems Vital Signs Vitals Vital Signs Date Time Temp Pulse Resp B/P Pulse Ox O2 Delivery O2 Flow Rate FiO2 10/19/16 16:56 98.0 84 18 114/60 100 10/19/16 15:03 30 10/18/16 08:00 Mechanical Ventilator Intake and Output 10/18/16 10/18/16 10/19/16 15:00 23:00 07:00 Intake Total 400 ml 1060 ml 610 ml Output Total 3500 ml 4000 ml Balance 400 ml -2440 ml -3390 ml Exam GENERAL: This is a well-developed male on ventilator support, does not respond to verbal internal stimuli. HEENT: Head is atraumatic, normocephalic. Pupils equal, round, reactive to light and accommodation. NECK: Supple. Tracheostomy at the base of the neck. CHEST: Scattered rhonchi bilaterally, slightly diminished at the bases. No wheezes noted. HEART: Normal S1, S2. No murmurs, gallops, clicks, rubs noted. ABDOMEN: Protuberant, soft, nondistended, nontender. Bowel sounds present. EXTREMITIES: Mild edema. There is no clubbing or cyanosis. Pulses equal bilaterally 2+. SKIN: There is no rash, petechiae noted. NEUROLOGIC: The patient is obtunded. Results Result Diagram: 10/19/16 0631 10/19/16 0631 Results 24 hrs Laboratory Tests Test 10/19/16 00:37 10/19/16 05:25 10/19/16 06:31 10/19/16 12:14 Bedside Glucose 225 H 241 H 232 H Anion Gap 9 Basophils # 0.0 Basophils % 0.5 Blood Morphology Comment Blood Urea Nitrogen 5 L Calcium Level 8.0 L Carbon Dioxide Level 30 Chloride Level 102 # Creatinine 0.33 L Eosinophils # 0.0 Eosinophils % 0.6 Glucose Level 203 Hematocrit 31.3 L Hemoglobin 10.6 L Lymphocytes # 0.4 L Lymphocytes % 4.9 L Mean Corpuscular Hemoglobin 31.4 Mean Corpuscular Hemoglobin Concent 33.9 Mean Corpuscular Volume 92.6 Mean Platelet Volume 7.0 L Monocytes # 0.9 Monocytes % 10.3 Neutrophils # 7.0 Neutrophils % 83.7 H Nucleated Red Blood Cells # 0.0 Nucleated Red Blood Cells % 0.0 Platelet Count 203 Potassium Level 4.0 Red Blood Count 3.38 L Red Cell Distribution Width 15.6 H Sodium Level 137 # White Blood Count 8.3 # Medications Medications Current Medications Sodium Chloride (NS) 1,000 ml @ 75 mls/hr [id number] IV Last administered on 10/12 20:05; Admin Dose 75 MLS/HR; Start 10/10/16 at 13:49; Status Future Hold Ondansetron HCl (Zofran Inj) 4 mg Q6H PRN IV NAUSEA AND/OR VOMITING Last administered on 10/16/16 09:08; Admin Dose 4 MG; Start 10/10/16 at 14:00 Nitroglycerin (Nitroglycerin (Sl Tab) 0.4 Mg) 1 tab Q5M PRN SL CHEST PAIN; Start 10/10/16 at 14:00 Acetaminophen (Tylenol Supp) 650 mg Q4H PRN [place] PAIN LEVEL 1-3 OR FEVER Last administered on 10/16/16 22:11; Admin Dose 650 MG; Start 10/10/16 at 14:00 Morphine Sulfate (morphine) 2 mg Q4H PRN IV PAIN LEVEL 7-10; Start 10/10/16 at 14:00 Lorazepam (Ativan) 1 mg Q2H PRN IV ANXIETY Last administered on 10/15/16 20:27 ; Admin Dose 1 MG; Start 10/10/16 at 14:00 Docusate Sodium 100 mg 100 mg Q12H PRN PO CONSTIPATION; Start 10/10/16 at 14:00 Levetiracetam/ Sodium Chloride (Keppra Iv/NS) 110 ml @ 440 mls/hr Q12 IVPB Last administered on 10/19/16 08:43; Admin Dose 440 MLS/HR; Start 10/10/16 at 14:00 Hydralazine HCl (Apresoline) 10 mg Q6H PRN IV ELEVATED BLOOD PRESSURE Last administered on 10/15/16 15:05; Admin Dose 10 MG; Start 10/10/16 at 19:00 Desmopressin Acetate (Ddavp) 0.2 mg TID PO Last administered on 10/19/16 12:49 ; Admin Dose 0.2 MG; Start 10/14/16 at 10:30 Atorvastatin Calcium (Lipitor) 40 mg QHS GTB Last administered on 10/18/16 20: 48; Admin Dose 40 MG; Start 10/15/16 at 21:00 Benazepril HCl (Lotensin) 10 mg DAILY GTB Last administered on 10/19/16 08:24 ; Admin Dose 10 MG; Start 10/15/16 at 12:00 Docusate Sodium (Colace Liquid Cup) 200 mg DAILY PRN GTB CONSTIPATION Last administered on 10/16/16 08:44; Admin Dose 200 MG; Start 10/15/16 at 12:00 Ferrous Sulfate (Feosol Liquid Cup) 330 mg DAILY GTB Last administered on 08:21; Admin Dose 330 MG; Start 10/16/16 at 09:00 Hydralazine HCl (Apresoline) 25 mg Q6H PRN GTB ELEVATED BLOOD PRESSURE; Start 10/15/16 at 12:00 Mineral Oil (Fleet Mineral Oil Enema) 133 ml DAILY PRN [place] CONSTIPATION Last administered on 10/16/16 03:54; Admin Dose 133 ML; Start 10/15/16 at 12:00 Multivitamins Therapeutic (Theragran) 1 tab DAILY PO Last administered on 08:24; Admin Dose 1 TAB; Start 10/15/16 at 12:00 Potassium Chloride (Potassium Chloride Pwd/Soln) 40 meq DAILY GTB Last administered on 10/19/16 08:22; Admin Dose 40 MEQ; Start 10/16/16 at 09:00 Miscellaneous Information 1 ea NOTE XX ; Start 10/15/16 at 21:30 Glucose (Glutose) 15 gm Q15M PRN PO DECREASED GLUCOSE; Start 10/15/16 at 21:30 Glucose (Glutose) 22.5 gm Q15M PRN PO DECREASED GLUCOSE; Start 10/15/16 at 21: 30 Dextrose (D50w Syringe) 25 ml Q15M PRN IV DECREASED GLUCOSE Last administered on 10/16/16 16:31; Admin Dose 25 ML; Start 10/15/16 at 21:30 Dextrose (D50w Syringe) 50 ml Q15M PRN IV DECREASED GLUCOSE; Start 10/15/16 at 21:30 Glucagon (Glucagen) 1 mg Q15M PRN IM DECREASED GLUCOSE; Start 10/15/16 at 21:30 Glucose 15 gm 15 gm Q15M PRN BUCCAL DECREASED GLUCOSE; Start 10/15/16 at 21:30 Potassium Chloride/Sodium Chloride (1/2 NS + KCl 20 Meq) 1,000 ml @ 50 mls/hr Q20H IV Last administered on 10/19/16 01:27; Admin Dose 50 MLS/HR; Start 10/16 at 08:30 Metoclopramide HCl (Reglan) 10 mg Q6 IV Last administered on 10/19/16 17:41; Admin Dose 10 MG; Start 10/16/16 at 18:00 Lactobacillus Acidoph/Bulgaricus (Floranex) 2 tab BID PO Last administered on 08:22; Admin Dose 2 TAB; Start 10/16/16 at 21:00 Lactulose (Enulose) 30 gm BID GTB Last administered on 10/19/16 08:21; Admin Dose 30 GM; Start 10/16/16 at 21:00 Lansoprazole (Prevacid) 30 mg BID@06,18 GTB Last administered on 10/19/16 17: 41; Admin Dose 30 MG; Start 10/17/16 at 06:00 Carbidopa/Levodopa (Sinemet (25/ 100)) 1 tab TID GTB Last administered on 12:49; Admin Dose 1 TAB; Start 10/16/16 at 21:00 Lidocaine (Lidocaine 5% Oint) 1 applic TID TOP Last administered on 10/19/16 12:49; Admin Dose 1 APPLIC; Start 10/16/16 at 21:00 Metoprolol Tartrate (Lopressor) 12.5 mg BID GTB Last administered on 10/19/16 08:24; Admin Dose 12.5 MG; Start 10/16/16 at 21:00 Metronidazole (Flagyl) 500 mg Q8 GTB Last administered on 10/19/16 15:24; Admin Dose 500 MG; Start 10/16/16 at 22:00 Nystatin (Nystatin Susp) 5 ml QID PO Last administered on 10/19/16 17:41; Admin Dose 5 ML; Start 10/16/16 at 21:00 Insulin Aspart (Novolog Insulin Pen) NOVOLOG *MILD* ALGORI... Q6 SC Last administered on 10/19/16 12:47; Admin Dose 3 UNIT; Start 10/18/16 at 12:00 ALTHEA ACOSTA Oct 19, 2016 17:49
[2016-10-19] MEDS: ATORVASTATIN 40 MG TAB GTB SCH (21:33)
--- NOTE | 2016-10-19 22:42 | CONS ---
Date/Time of Note Date/Time of Note DATE: 10/19/16 TIME: 22:39 Assessment/Plan Assessment/Plan Additional Assessment/Plan 1. Severe hyponatremia with a sodium of 119, possibly acute on chronic hyponatremia versus acute severe hyponatremia.- pt went from hyponatremia to hypernatremia with treatment with 3% saline and one dose of tolvaptan - then Improved to normal today wtih D5W IVF and DDAVP 0.2mg PO x2 dose 10/15/16- on again Na dropped to 119 s/p Tovlaptan 15 mg PO x1 on 10/18/16 2. Seizures secondary to severe hyponatremia. 3. Sepsis secondary to bilateral pneumonia. 4. Ventilator-dependent respiratory failure, status post tracheostomy, on vent. 5. History of a previous brain tumor, had surgery. Currently, status post ventriculoperitoneal shunt in place. 6. History of a previous cerebellar cerebrovascular accident. PLAN: pt received 3 % saline and tolvaptan one dose on 10/10 and 10/11- went into polyuria, Na went from hyponatremia to hypernatremia- now improved to normal with D5W IVF and 2 dose of DDAVP 0.2mg- again today 10/16- na dropped from 140 to 122- given 3% hypertonic saline for another 12 hr - did not respond well, Na again dropped to 119- One dose of tolvaptan 15 mg X 1 10/18/16- Na improved to 137 today onTube feeding with diabetosource monitor Na, pt has acute on chronic hyponatremia ventilator care as per pulmonary will follow up Consultation Date/Type/Reason Admit Date/Time Oct 10, 2016 at 13:53 Initial Consult Date 10/10/16 Type of Consultation: NEPHROLOGY Reason for Consultation Hyponatremia>hypernatremia>Hyponatremia Referring Provider: MADDY HOPKINS MD 24 HR Interval Summary Free Text/Dictation Na 137, pt had 7 L urine output, BP stable Exam/Review of Systems Vital Signs Vitals Vital Signs Date Time Temp Pulse Resp B/P Pulse Ox O2 Delivery O2 Flow Rate FiO2 10/19/16 21:03 82 14 99 30 10/19/16 20:32 98.0 100/56 10/18/16 08:00 Mechanical Ventilator Intake and Output 10/18/16 10/18/16 10/19/16 15:00 23:00 07:00 Intake Total 400 ml 1060 ml 610 ml Output Total 3500 ml 4000 ml Balance 400 ml -2440 ml -3390 ml Exam HEENT: Tracheostomy site is clear. LUNGS: Bilateral coarse breath sounds with bilateral basilar rales present and lower lobe rhonchi present. HEART: S1, S2, tachycardia, no murmur. ABDOMEN: Soft. G-tube in place. EXTREMITIES: No clubbing, cyanosis, or edema. The patient is very debilitated. PSYCHIATRIC: Not able to assess. NEUROLOGICAL: Not able to assess. , + steve catheter in place Results Result Diagram: 10/19/16 0631 10/19/16 0631 Results 24 hrs Laboratory Tests Test 10/19/16 00:37 10/19/16 05:25 10/19/16 06:31 10/19/16 12:14 Bedside Glucose 225 H 241 H 232 H Anion Gap 9 Basophils # 0.0 Basophils % 0.5 Blood Morphology Comment Blood Urea Nitrogen 5 L Calcium Level 8.0 L Carbon Dioxide Level 30 Chloride Level 102 # Creatinine 0.33 L Eosinophils # 0.0 Eosinophils % 0.6 Glucose Level 203 Hematocrit 31.3 L Hemoglobin 10.6 L Lymphocytes # 0.4 L Lymphocytes % 4.9 L Mean Corpuscular Hemoglobin 31.4 Mean Corpuscular Hemoglobin Concent 33.9 Mean Corpuscular Volume 92.6 Mean Platelet Volume 7.0 L Monocytes # 0.9 Monocytes % 10.3 Neutrophils # 7.0 Neutrophils % 83.7 H Nucleated Red Blood Cells # 0.0 Nucleated Red Blood Cells % 0.0 Platelet Count 203 Potassium Level 4.0 Red Blood Count 3.38 L Red Cell Distribution Width 15.6 H Sodium Level 137 # White Blood Count 8.3 # Test 10/19/16 18:05 Bedside Glucose 189 Medications Medications Current Medications Sodium Chloride (NS) 1,000 ml @ 75 mls/hr [id number] IV Last administered on 10/12 20:05; Admin Dose 75 MLS/HR; Start 10/10/16 at 13:49; Status Future Hold Ondansetron HCl (Zofran Inj) 4 mg Q6H PRN IV NAUSEA AND/OR VOMITING Last administered on 10/16/16 09:08; Admin Dose 4 MG; Start 10/10/16 at 14:00 Nitroglycerin (Nitroglycerin (Sl Tab) 0.4 Mg) 1 tab Q5M PRN SL CHEST PAIN; Start 10/10/16 at 14:00 Acetaminophen (Tylenol Supp) 650 mg Q4H PRN [place] PAIN LEVEL 1-3 OR FEVER Last administered on 10/16/16 22:11; Admin Dose 650 MG; Start 10/10/16 at 14:00 Morphine Sulfate (morphine) 2 mg Q4H PRN IV PAIN LEVEL 7-10; Start 10/10/16 at 14:00 Lorazepam (Ativan) 1 mg Q2H PRN IV ANXIETY Last administered on 10/15/16 20:27 ; Admin Dose 1 MG; Start 10/10/16 at 14:00 Docusate Sodium 100 mg 100 mg Q12H PRN PO CONSTIPATION; Start 10/10/16 at 14:00 Levetiracetam/ Sodium Chloride (Keppra Iv/NS) 110 ml @ 440 mls/hr Q12 IVPB Last administered on 10/19/16 21:34; Admin Dose 440 MLS/HR; Start 10/10/16 at 14:00 Hydralazine HCl (Apresoline) 10 mg Q6H PRN IV ELEVATED BLOOD PRESSURE Last administered on 10/15/16 15:05; Admin Dose 10 MG; Start 10/10/16 at 19:00 Desmopressin Acetate (Ddavp) 0.2 mg TID PO Last administered on 10/19/16 21:33 ; Admin Dose 0.2 MG; Start 10/14/16 at 10:30 Atorvastatin Calcium (Lipitor) 40 mg QHS GTB Last administered on 10/19/16 21: 33; Admin Dose 40 MG; Start 10/15/16 at 21:00 Benazepril HCl (Lotensin) 10 mg DAILY GTB Last administered on 10/19/16 08:24 ; Admin Dose 10 MG; Start 10/15/16 at 12:00 Docusate Sodium (Colace Liquid Cup) 200 mg DAILY PRN GTB CONSTIPATION Last administered on 10/16/16 08:44; Admin Dose 200 MG; Start 10/15/16 at 12:00 Ferrous Sulfate (Feosol Liquid Cup) 330 mg DAILY GTB Last administered on 08:21; Admin Dose 330 MG; Start 10/16/16 at 09:00 Hydralazine HCl (Apresoline) 25 mg Q6H PRN GTB ELEVATED BLOOD PRESSURE; Start 10/15/16 at 12:00 Mineral Oil (Fleet Mineral Oil Enema) 133 ml DAILY PRN [place] CONSTIPATION Last administered on 10/16/16 03:54; Admin Dose 133 ML; Start 10/15/16 at 12:00 Multivitamins Therapeutic (Theragran) 1 tab DAILY PO Last administered on 08:24; Admin Dose 1 TAB; Start 10/15/16 at 12:00 Potassium Chloride (Potassium Chloride Pwd/Soln) 40 meq DAILY GTB Last administered on 10/19/16 08:22; Admin Dose 40 MEQ; Start 10/16/16 at 09:00 Miscellaneous Information 1 ea NOTE XX ; Start 10/15/16 at 21:30 Glucose (Glutose) 15 gm Q15M PRN PO DECREASED GLUCOSE; Start 10/15/16 at 21:30 Glucose (Glutose) 22.5 gm Q15M PRN PO DECREASED GLUCOSE; Start 10/15/16 at 21: 30 Dextrose (D50w Syringe) 25 ml Q15M PRN IV DECREASED GLUCOSE Last administered on 10/16/16 16:31; Admin Dose 25 ML; Start 10/15/16 at 21:30 Dextrose (D50w Syringe) 50 ml Q15M PRN IV DECREASED GLUCOSE; Start 10/15/16 at 21:30 Glucagon (Glucagen) 1 mg Q15M PRN IM DECREASED GLUCOSE; Start 10/15/16 at 21:30 Glucose 15 gm 15 gm Q15M PRN BUCCAL DECREASED GLUCOSE; Start 10/15/16 at 21:30 Potassium Chloride/Sodium Chloride (1/2 NS + KCl 20 Meq) 1,000 ml @ 50 mls/hr Q20H IV Last administered on 10/19/16 21:34; Admin Dose 50 MLS/HR; Start 10/16 at 08:30 Metoclopramide HCl (Reglan) 10 mg Q6 IV Last administered on 10/19/16 17:41; Admin Dose 10 MG; Start 10/16/16 at 18:00 Lactobacillus Acidoph/Bulgaricus (Floranex) 2 tab BID PO Last administered on 21:33; Admin Dose 2 TAB; Start 10/16/16 at 21:00 Lactulose (Enulose) 30 gm BID GTB Last administered on 10/19/16 21:32; Admin Dose 30 GM; Start 10/16/16 at 21:00 Lansoprazole (Prevacid) 30 mg BID@,18 GTB Last administered on 10/19/16 17: 41; Admin Dose 30 MG; Start 10/17/16 at 06:00 Carbidopa/Levodopa (Sinemet (25/ 100)) 1 tab TID GTB Last administered on 21:32; Admin Dose 1 TAB; Start 10/16/16 at 21:00 Lidocaine (Lidocaine 5% Oint) 1 applic TID TOP Last administered on 10/19/16 21:35; Admin Dose 1 APPLIC; Start 10/16/16 at 21:00 Metoprolol Tartrate (Lopressor) 12.5 mg BID GTB Last administered on 10/19/16 21:35; Admin Dose 12.5 MG; Start 10/16/16 at 21:00 Metronidazole (Flagyl) 500 mg Q8 GTB Last administered on 10/19/16 21:32; Admin Dose 500 MG; Start 10/16/16 at 22:00 Nystatin (Nystatin Susp) 5 ml QID PO Last administered on 10/19/16 21:32; Admin Dose 5 ML; Start 10/16/16 at 21:00 Insulin Aspart (Novolog Insulin Pen) NOVOLOG *MILD* ALGORI... Q6 SC Last administered on 10/19/16 18:08; Admin Dose 2 UNIT; Start 10/18/16 at 12:00 LISSA PARK MD Oct 19, 2016 22:42
[2016-10-20] VITALS (22 sets, daily range): BP systolic 115–139; BP diastolic 56–74; PULSE 70–92; RESP 14–18
[2016-10-20] MEDS: METOCLOPRAMIDE 10 MG INJ IV SCH ×4 (00:14→17:49)
[2016-10-20] MEDS: INSULIN ASPART [NOVOLOG] 3 ML PEN SC SCH ×5 (00:15→20:58)
[2016-10-20] MEDS: metroNIDAZOLE 500 MG TAB GTB SCH (06:41)
[2016-10-20] MEDS: LANSOPRAZOLE 30 MG CAP GTB SCH ×2 (06:42→17:49)
[2016-10-20 07:56] LABS: POTASSIUM 4.2 mmol/L (3.5-5.1)
[2016-10-20 07:59] LABS: CREATININE 0.27 mg/dl (0.61-1.24)
[2016-10-20 08:00] LABS: CALCIUM 7.9 mg/dl (8.4-10.2)
[2016-10-20 08:28] LABS: BASOPHILS % 0.3 % (0.0-2.0); EOSINOPHILS # 0.1 10^3/ul (0.0-0.5); EOSINOPHILS % 0.4 % (0.0-7.0); HEMATOCRIT 30.8 % (42.0-52.0); HEMOGLOBIN 10.7 g/dl (14.0-18.0); LYMPHOCYTES # 0.9 10^3/ul (0.8-2.9); LYMPHOCYTES % 6.4 % (15.0-51.0); MEAN CORPUSCULAR HGB CONC 34.6 g/dl (32.0-37.0); MEAN CORPUSCULAR VOLUME 92.4 fl (82.0-101.0); MEAN PLATELET VOLUME 7.4 fl (7.4-10.4); MONOCYTE # 1.5 10^3/ul (0.3-0.9); MONOCYTES % 11.3 % (0.0-11.0); NEUTROPHIL # 11.2 10^3/ul (1.6-7.5); NEUTROPHILS % 81.6 % (39.0-77.0); PLATELET COUNT 226 10^3/UL (140-440); RED BLOOD COUNT 3.33 10^6/ul (4.70-6.10); RED CELL DISTRIBUTION WIDTH 16.7 % (11.5-14.5); UNCORRECTED WBC 13.7 10^3/ul (4.8-10.8); WHITE BLOOD COUNT 13.7 10^3/ul (4.8-10.8)
[2016-10-20 08:40] LABS: CONDITION 1; LH ANALYZER COMMENTS 1
[2016-10-20] MEDS: LACTULOSE 30ML CUP GTB SCH ×2 (09:03→20:59)
[2016-10-20] MEDS: FERROUS SULFATE 60 MG/ML 5ML CUP GTB SCH (09:03)
[2016-10-20] MEDS: LACTOBACILLUS CHEW TAB PO SCH ×2 (09:04→20:56)
[2016-10-20] MEDS: DESMOPRESSIN 0.1 MG TAB PO SCH ×3 (09:04→20:56)
[2016-10-20] MEDS: MULTIVITAMINS THERAPEUTIC TAB PO SCH (09:04)
[2016-10-20] MEDS: CARBIDOPA/LEVODOPA (25/100) TAB GTB SCH ×3 (09:04→20:56)
[2016-10-20] MEDS: NYSTATIN SUSP 5 ML CUP PO SCH ×4 (09:04→20:55)
[2016-10-20] MEDS: POTASSIUM CHLORIDE 20 MEQ POWDER FOR ORAL SOLN GTB SCH (09:05)
[2016-10-20] MEDS: BENAZEPRIL 10 MG TAB GTB SCH (09:05)
[2016-10-20] MEDS: LEVETIRACETAM IV 1,000 MG in SOD CHLORIDE 0.9% 100 ML IVPB SCH ×2 (09:06→21:08)
[2016-10-20] MEDS: METOPROLOL 25 MG TAB GTB SCH ×2 (09:06→20:57)
[2016-10-20] MEDS: LIDOCAINE 5% 35 GM OINT TOP SCH ×3 (09:06→20:56)
--- NOTE | 2016-10-20 10:54 | CONS ---
Date/Time of Note Date/Time of Note DATE: 10/20/16 TIME: 10:51 Assessment/Plan Assessment/Plan Additional Assessment/Plan Assessment and recommendations; 1. Patient with a history of chronic respiratory failure due to anoxic brain injury admitted for sepsis due to UTI with marked clinical improvement. 2. Stable seizure disorder. 3. Diabetes insipidus. Patient doing well on desmopressin. 4. History of hypertension. Continue current supportive care. Patient can be discharged to the nursing facility. Consultation Date/Type/Reason Admit Date/Time Oct 10, 2016 at 13:53 Initial Consult Date 10/10/16 Type of Consultation: Pulmonary Referring Provider: MADDY HOPKINS MD 24 HR Interval Summary Free Text/Dictation Patient condition remains stable. Remains unresponsive going to anoxic encephalopathy. Remains ventilator dependent. General examination; middle-aged man, on ventilator via tracheostomy, unresponsive but currently in no distress. Exam/Review of Systems Vital Signs Vitals Vital Signs Date Time Temp Pulse Resp B/P Pulse Ox O2 Delivery O2 Flow Rate FiO2 10/20/16 09:00 90 16 100 30 10/20/16 07:49 98.7 139/74 10/18/16 08:00 Mechanical Ventilator Intake and Output 10/19/16 10/19/16 10/20/16 15:00 23:00 07:00 Intake Total 610 ml Output Total 1000 ml Balance -390 ml Exam H EENT examination; supple neck, no JVD. No lymphadenopathy. Tracheostomy in place with clean insertion site. Pupils are midsize and reactive to light. Chest examination; clear to auscultation bilaterally. S1-S2 audible, no murmurs. Regular rhythm. Abdomen examination; soft, no organomegaly. G-tube in place. Bowel sounds audible. Extremity examination; no peripheral edema. Pulses 1+ bilaterally. [employer] examination; patient remains unresponsive. Ventilator settings are AC of 14, tidal volume 500, PEEP of 5, 30% FiO2. Results Result Diagram: 10/20/16 0708 10/20/16 0708 Results 24 hrs Laboratory Tests Test 10/19/16 12:14 10/19/16 18:05 10/20/16 00:12 10/20/16 06:41 Bedside Glucose 232 H 189 224 H 220 Test 10/20/16 07:08 Anion Gap 11 Basophils # 0.0 Basophils % 0.3 Blood Morphology Comment Blood Urea Nitrogen 9 Calcium Level 7.9 L Carbon Dioxide Level 28 Chloride Level 99 Creatinine 0.27 L Eosinophils # 0.1 Eosinophils % 0.4 Glucose Level 199 Hematocrit 30.8 L Hemoglobin 10.7 L Lymphocytes # 0.9 Lymphocytes % 6.4 L Magnesium Level 1.9 Mean Corpuscular Hemoglobin 32.0 Mean Corpuscular Hemoglobin Concent 34.6 Mean Corpuscular Volume 92.4 Mean Platelet Volume 7.4 Monocytes # 1.5 H Monocytes % 11.3 H Neutrophils # 11.2 H Neutrophils % 81.6 H Nucleated Red Blood Cells # 0.0 Nucleated Red Blood Cells % 0.0 Platelet Count 226 Potassium Level 4.2 Red Blood Count 3.33 L Red Cell Distribution Width 16.7 H Sodium Level 134 L White Blood Count 13.7 #H Medications Medications Current Medications Sodium Chloride (NS) 1,000 ml @ 75 mls/hr [id number] IV Last administered on 10/12 20:05; Admin Dose 75 MLS/HR; Start 10/10/16 at 13:49; Status Future Hold Ondansetron HCl (Zofran Inj) 4 mg Q6H PRN IV NAUSEA AND/OR VOMITING Last administered on 10/16/16 09:08; Admin Dose 4 MG; Start 10/10/16 at 14:00 Nitroglycerin (Nitroglycerin (Sl Tab) 0.4 Mg) 1 tab Q5M PRN SL CHEST PAIN; Start 10/10/16 at 14:00 Acetaminophen (Tylenol Supp) 650 mg Q4H PRN [place] PAIN LEVEL 1-3 OR FEVER Last administered on 10/16/16 22:11; Admin Dose 650 MG; Start 10/10/16 at 14:00 Morphine Sulfate (morphine) 2 mg Q4H PRN IV PAIN LEVEL 7-10; Start 10/10/16 at 14:00 Lorazepam (Ativan) 1 mg Q2H PRN IV ANXIETY Last administered on 10/15/16 20:27 ; Admin Dose 1 MG; Start 10/10/16 at 14:00 Docusate Sodium 100 mg 100 mg Q12H PRN PO CONSTIPATION; Start 10/10/16 at 14:00 Levetiracetam/ Sodium Chloride (Keppra Iv/NS) 110 ml @ 440 mls/hr Q12 IVPB Last administered on 10/20/16 09:06; Admin Dose 440 MLS/HR; Start 10/10/16 at 14:00 Hydralazine HCl (Apresoline) 10 mg Q6H PRN IV ELEVATED BLOOD PRESSURE Last administered on 10/15/16 15:05; Admin Dose 10 MG; Start 10/10/16 at 19:00 Desmopressin Acetate (Ddavp) 0.2 mg TID PO Last administered on 10/20/16 09:04 ; Admin Dose 0.2 MG; Start 10/14/16 at 10:30 Atorvastatin Calcium (Lipitor) 40 mg QHS GTB Last administered on 10/19/16 21: 33; Admin Dose 40 MG; Start 10/15/16 at 21:00 Benazepril HCl (Lotensin) 10 mg DAILY GTB Last administered on 10/20/16 09:05 ; Admin Dose 10 MG; Start 10/15/16 at 12:00 Docusate Sodium (Colace Liquid Cup) 200 mg DAILY PRN GTB CONSTIPATION Last administered on 10/16/16 08:44; Admin Dose 200 MG; Start 10/15/16 at 12:00 Ferrous Sulfate (Feosol Liquid Cup) 330 mg DAILY GTB Last administered on 09:03; Admin Dose 330 MG; Start 10/16/16 at 09:00 Hydralazine HCl (Apresoline) 25 mg Q6H PRN GTB ELEVATED BLOOD PRESSURE; Start 10/15/16 at 12:00 Mineral Oil (Fleet Mineral Oil Enema) 133 ml DAILY PRN [place] CONSTIPATION Last administered on 10/16/16 03:54; Admin Dose 133 ML; Start 10/15/16 at 12:00 Multivitamins Therapeutic (Theragran) 1 tab DAILY PO Last administered on 09:04; Admin Dose 1 TAB; Start 10/15/16 at 12:00 Potassium Chloride (Potassium Chloride Pwd/Soln) 40 meq DAILY GTB Last administered on 10/20/16 09:05; Admin Dose 40 MEQ; Start 10/16/16 at 09:00 Miscellaneous Information 1 ea NOTE XX ; Start 10/15/16 at 21:30 Glucose (Glutose) 15 gm Q15M PRN PO DECREASED GLUCOSE; Start 10/15/16 at 21:30 Glucose (Glutose) 22.5 gm Q15M PRN PO DECREASED GLUCOSE; Start 10/15/16 at 21: 30 Dextrose (D50w Syringe) 25 ml Q15M PRN IV DECREASED GLUCOSE Last administered on 10/16/16 16:31; Admin Dose 25 ML; Start 10/15/16 at 21:30 Dextrose (D50w Syringe) 50 ml Q15M PRN IV DECREASED GLUCOSE; Start 10/15/16 at 21:30 Glucagon (Glucagen) 1 mg Q15M PRN IM DECREASED GLUCOSE; Start 10/15/16 at 21:30 Glucose (Glutose) 15 gm Q15M PRN BUCCAL DECREASED GLUCOSE; Start 10/15/16 at 21 :30 Metoclopramide HCl (Reglan) 10 mg Q6 IV Last administered on 10/20/16 06:42; Admin Dose 10 MG; Start 10/16/16 at 18:00 Lactobacillus Acidoph/Bulgaricus (Floranex) 2 tab BID PO Last administered on 09:04; Admin Dose 2 TAB; Start 10/16/16 at 21:00 Lactulose (Enulose) 30 gm BID GTB Last administered on 10/20/16 09:03; Admin Dose 30 GM; Start 10/16/16 at 21:00 Lansoprazole (Prevacid) 30 mg BID@,18 GTB Last administered on 10/20/16 06: 42; Admin Dose 30 MG; Start 10/17/16 at 06:00 Carbidopa/Levodopa (Sinemet (25/ 100)) 1 tab TID GTB Last administered on 09:04; Admin Dose 1 TAB; Start 10/16/16 at 21:00 Lidocaine (Lidocaine 5% Oint) 1 applic TID TOP Last administered on 10/20/16 09:06; Admin Dose 1 APPLIC; Start 10/16/16 at 21:00 Metoprolol Tartrate (Lopressor) 12.5 mg BID GTB Last administered on 10/20/16 09:06; Admin Dose 12.5 MG; Start 10/16/16 at 21:00 Metronidazole (Flagyl) 500 mg Q8 GTB Last administered on 10/20/16 06:41; Admin Dose 500 MG; Start 10/16/16 at 22:00 Nystatin (Nystatin Susp) 5 ml QID PO Last administered on 10/20/16 09:04; Admin Dose 5 ML; Start 10/16/16 at 21:00 Insulin Aspart (Novolog Insulin Pen) NOVOLOG *MILD* ALGORI... Q6 SC Last administered on 10/20/16 06:43; Admin Dose 2 UNIT; Start 10/18/16 at 12:00 JUANA DE LEÓN Oct 20, 2016 10:54
--- NOTE | 2016-10-20 11:22 | CONS ---
Date/Time of Note Date/Time of Note DATE: 10/20/16 TIME: : Assessment/Plan Assessment/Plan Additional Assessment/Plan 1. Severe hyponatremia with a sodium of 119, possibly acute on chronic hyponatremia versus acute severe hyponatremia.- pt went from hyponatremia to hypernatremia with treatment with 3% saline and one dose of tolvaptan - then Improved to normal today wtih D5W IVF and DDAVP 0.2mg PO x2 dose 10/15/16- on again Na dropped to 119 s/p Tovlaptan 15 mg PO x1 on 10/18/16 2. Seizures secondary to severe hyponatremia. 3. Sepsis secondary to bilateral pneumonia. 4. Ventilator-dependent respiratory failure, status post tracheostomy, on vent. 5. History of a previous brain tumor, had surgery. Currently, status post ventriculoperitoneal shunt in place. 6. History of a previous cerebellar cerebrovascular accident. PLAN: pt received 3 % saline and tolvaptan one dose on 10/10 and 10/11- went into polyuria, Na went from hyponatremia to hypernatremia- now improved to normal with D5W IVF and 2 dose of DDAVP 0.2mg- again today 10/16- na dropped from 140 to 122- given 3% hypertonic saline for another 12 hr - did not respond well, Na again dropped to 119- One dose of tolvaptan 15 mg X 1 10/18/16- Na improved to 134 onTube feeding with diabetosource monitor Na, pt has acute on chronic hyponatremia ventilator care as per pulmonary will follow up Consultation Date/Type/Reason Admit Date/Time Oct 10, 2016 at 13:53 Initial Consult Date 10/10/16 Type of Consultation: NEPHROLOGY Reason for Consultation SHARLENE, Hyponatremia>hypernatremia>Hyponatremia Referring Provider: MADYD HOPKINS MD 24 HR Interval Summary Free Text/Dictation Na 134 today, had a episode of vomiting, BP stable Exam/Review of Systems Vital Signs Vitals Vital Signs Date Time Temp Pulse Resp B/P Pulse Ox O2 Delivery O2 Flow Rate FiO2 10/20/16 11:15 97.7 86 18 126/73 98 10/20/16 09:00 30 10/18/16 08:00 Mechanical Ventilator Intake and Output 10/19/16 10/19/16 10/20/16 15:00 23:00 07:00 Intake Total 610 ml Output Total 1000 ml Balance -390 ml Exam HEENT: Tracheostomy site is clear. LUNGS: Bilateral coarse breath sounds with bilateral basilar rales present and lower lobe rhonchi present. HEART: S1, S2, tachycardia, no murmur. ABDOMEN: Soft. G-tube in place. EXTREMITIES: No clubbing, cyanosis, or edema. The patient is very debilitated. PSYCHIATRIC: Not able to assess. NEUROLOGICAL: Not able to assess. , + steve catheter in place Results Result Diagram: 10/20/16 0708 10/20/16 0708 Results 24 hrs Laboratory Tests Test 10/19/16 12:14 10/19/16 18:05 10/20/16 00:12 10/20/16 06:41 Bedside Glucose 232 H 189 224 H 220 Test 10/20/16 07:08 Anion Gap 11 Basophils # 0.0 Basophils % 0.3 Blood Morphology Comment Blood Urea Nitrogen 9 Calcium Level 7.9 L Carbon Dioxide Level 28 Chloride Level 99 Creatinine 0.27 L Eosinophils # 0.1 Eosinophils % 0.4 Glucose Level 199 Hematocrit 30.8 L Hemoglobin 10.7 L Lymphocytes # 0.9 Lymphocytes % 6.4 L Magnesium Level 1.9 Mean Corpuscular Hemoglobin 32.0 Mean Corpuscular Hemoglobin Concent 34.6 Mean Corpuscular Volume 92.4 Mean Platelet Volume 7.4 Monocytes # 1.5 H Monocytes % 11.3 H Neutrophils # 11.2 H Neutrophils % 81.6 H Nucleated Red Blood Cells # 0.0 Nucleated Red Blood Cells % 0.0 Platelet Count 226 Potassium Level 4.2 Red Blood Count 3.33 L Red Cell Distribution Width 16.7 H Sodium Level 134 L White Blood Count 13.7 #H Medications Medications Current Medications Sodium Chloride (NS) 1,000 ml @ 75 mls/hr [id number] IV Last administered on 10/12 20:05; Admin Dose 75 MLS/HR; Start 10/10/16 at 13:49; Status Future Hold Ondansetron HCl (Zofran Inj) 4 mg Q6H PRN IV NAUSEA AND/OR VOMITING Last administered on 10/16/16 09:08; Admin Dose 4 MG; Start 10/10/16 at 14:00 Nitroglycerin (Nitroglycerin (Sl Tab) 0.4 Mg) 1 tab Q5M PRN SL CHEST PAIN; Start 10/10/16 at 14:00 Acetaminophen (Tylenol Supp) 650 mg Q4H PRN [place] PAIN LEVEL 1-3 OR FEVER Last administered on 10/16/16 22:11; Admin Dose 650 MG; Start 10/10/16 at 14:00 Morphine Sulfate (morphine) 2 mg Q4H PRN IV PAIN LEVEL 7-10; Start 10/10/16 at 14:00 Lorazepam (Ativan) 1 mg Q2H PRN IV ANXIETY Last administered on 10/15/16 20:27 ; Admin Dose 1 MG; Start 10/10/16 at 14:00 Docusate Sodium 100 mg 100 mg Q12H PRN PO CONSTIPATION; Start 10/10/16 at 14:00 Levetiracetam/ Sodium Chloride (Keppra Iv/NS) 110 ml @ 440 mls/hr Q12 IVPB Last administered on 10/20/16 09:06; Admin Dose 440 MLS/HR; Start 10/10/16 at 14:00 Hydralazine HCl (Apresoline) 10 mg Q6H PRN IV ELEVATED BLOOD PRESSURE Last administered on 10/15/16 15:05; Admin Dose 10 MG; Start 10/10/16 at 19:00 Desmopressin Acetate (Ddavp) 0.2 mg TID PO Last administered on 10/20/16 09:04 ; Admin Dose 0.2 MG; Start 10/14/16 at 10:30 Atorvastatin Calcium (Lipitor) 40 mg QHS GTB Last administered on 10/19/16 21: 33; Admin Dose 40 MG; Start 10/15/16 at 21:00 Benazepril HCl (Lotensin) 10 mg DAILY GTB Last administered on 10/20/16 09:05 ; Admin Dose 10 MG; Start 10/15/16 at 12:00 Docusate Sodium (Colace Liquid Cup) 200 mg DAILY PRN GTB CONSTIPATION Last administered on 10/16/16 08:44; Admin Dose 200 MG; Start 10/15/16 at 12:00 Ferrous Sulfate (Feosol Liquid Cup) 330 mg DAILY GTB Last administered on 09:03; Admin Dose 330 MG; Start 10/16/16 at 09:00 Hydralazine HCl (Apresoline) 25 mg Q6H PRN GTB ELEVATED BLOOD PRESSURE; Start 10/15/16 at 12:00 Mineral Oil (Fleet Mineral Oil Enema) 133 ml DAILY PRN [place] CONSTIPATION Last administered on 10/16/16 03:54; Admin Dose 133 ML; Start 10/15/16 at 12:00 Multivitamins Therapeutic (Theragran) 1 tab DAILY PO Last administered on 09:04; Admin Dose 1 TAB; Start 10/15/16 at 12:00 Potassium Chloride (Potassium Chloride Pwd/Soln) 40 meq DAILY GTB Last administered on 10/20/16 09:05; Admin Dose 40 MEQ; Start 10/16/16 at 09:00 Miscellaneous Information 1 ea NOTE XX ; Start 10/15/16 at 21:30 Glucose (Glutose) 15 gm Q15M PRN PO DECREASED GLUCOSE; Start 10/15/16 at 21:30 Glucose (Glutose) 22.5 gm Q15M PRN PO DECREASED GLUCOSE; Start 10/15/16 at 21: 30 Dextrose (D50w Syringe) 25 ml Q15M PRN IV DECREASED GLUCOSE Last administered on 10/16/16 16:31; Admin Dose 25 ML; Start 10/15/16 at 21:30 Dextrose (D50w Syringe) 50 ml Q15M PRN IV DECREASED GLUCOSE; Start 10/15/16 at 21:30 Glucagon (Glucagen) 1 mg Q15M PRN IM DECREASED GLUCOSE; Start 10/15/16 at 21:30 Glucose (Glutose) 15 gm Q15M PRN BUCCAL DECREASED GLUCOSE; Start 10/15/16 at 21 :30 Metoclopramide HCl (Reglan) 10 mg Q6 IV Last administered on 10/20/16 11:04; Admin Dose 10 MG; Start 10/16/16 at 18:00 Lactobacillus Acidoph/Bulgaricus (Floranex) 2 tab BID PO Last administered on 09:04; Admin Dose 2 TAB; Start 10/16/16 at 21:00 Lactulose (Enulose) 30 gm BID GTB Last administered on 10/20/16 09:03; Admin Dose 30 GM; Start 10/16/16 at 21:00 Lansoprazole (Prevacid) 30 mg BID@,18 GTB Last administered on 10/20/16 06: 42; Admin Dose 30 MG; Start 10/17/16 at 06:00 Carbidopa/Levodopa (Sinemet (25/ 100)) 1 tab TID GTB Last administered on 09:04; Admin Dose 1 TAB; Start 10/16/16 at 21:00 Lidocaine (Lidocaine 5% Oint) 1 applic TID TOP Last administered on 10/20/16 09:06; Admin Dose 1 APPLIC; Start 10/16/16 at 21:00 Metoprolol Tartrate (Lopressor) 12.5 mg BID GTB Last administered on 10/20/16 09:06; Admin Dose 12.5 MG; Start 10/16/16 at 21:00 Metronidazole (Flagyl) 500 mg Q8 GTB Last administered on 10/20/16 06:41; Admin Dose 500 MG; Start 10/16/16 at 22:00 Nystatin (Nystatin Susp) 5 ml QID PO Last administered on 10/20/16 09:04; Admin Dose 5 ML; Start 10/16/16 at 21:00 Insulin Aspart (Novolog Insulin Pen) NOVOLOG *MILD* ALGORI... Q6 SC Last administered on 10/20/16 06:43; Admin Dose 2 UNIT; Start 10/18/16 at 12:00 LISSA PARK MD Oct 20, 2016 11:22
--- NOTE | 2016-10-20 12:53 | PN ---
DATE: 10/20/2016 SUBJECTIVE: The patient had an episode of emesis this morning. No fevers, no diarrhea, tolerates t ube feeding, lying comfortably in bed. LABORATORY DATA: WBC 13.7, platelets 226, neutrophils 81.6, no bands. BUN 9, creatinine 0.27. INDWELLINGS: Trach, PEG, Knapp, peripheral IV. PHYSICAL EXAMINATION: GENERAL: Chronically ill-appearing, middle-aged man who is lying comfortably in bed. HEENT: Head atraumatic, normocephalic. Sclerae anicteric. Buccal mucosa dry. NECK: Supple. CHEST: Rise symmetrical. Breath sounds diminished. HEART: S1, S2. ABDOMEN: Soft, bowel tones present. EXTREMITIES: No cyanosis. Bilateral trace edema. ASSESSMENT: 1. Status post sepsis, pneumonia. 2. Status post urinary tract infection. 3. Chronic respiratory failure. 4. Chronic encephalopathy. 5. History of brainstem glioma, status post chemotherapy. 6. Seizure disorder. PLAN: The patient remains clinically unchanged. We are going to discontinue Flagyl, continue obser ving him off antibiotics, panculture p.r.n. Follow recommendations of consultants. Dictated By: ROSANGELA CARDONA STOCKBROKER for QUINTIN DOMÍNGUEZ/PIPER Conf#: [id number] DID#: [id number]
--- NOTE | 2016-10-20 17:05 | PN ---
Date/Time of Note Date/Time of Note DATE: 10/20/16 TIME: 17:01 Assessment/Plan VTE Prophylaxis VTE Prophylaxis Intervention: SCD's Lines/Catheters [facility] [place] [employer] Central line still needed: Yes Urinary Cath still in place: Yes Reason Cath still needed: urinary retention Assessment/Plan Chief Complaint/Hosp Course ASSESSMENT AND PLAN: - Leukocytosis, s/p emesis, will start empiric abx for possible aspiration. - Sepsis secondary to urinary tract infection and healthcare-acquired pneumonia. Patient is followed by Dr. Sales in infectious disease consultation. Continue antibiotics per ID. - Ventilator dependent respiratory failure. Dr. Unger is following from pulmonology standpoint. Continue bronchodilators and ventilatory support. 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 - Seizure disorder. Continue Keppra. - Hypertension, continue benazepril and hydralazine. - Hyponatremia, improved on DDAVP. Patient is followed by Dr. Tovar in nephrology consultation. - History of cerebrovascular accident. Continue sequential compression device for deep venous thrombosis prophylaxis and Pepcid for peptic ulcer disease prophylaxis. Further recommendations based on clinical course. Plan of care discussed with Dr. Desir. Problems: Subjective 24 Hr Interval Summary Free Text/Dictation patient with leukocytosis, r/o possible aspiration, pt had non-bloody emesis, no fever,no tachycardia, SR on tele. will start abx for possible aspiration pneumonitis. Lantus increased. Exam/Review of Systems Vital Signs Vitals Vital Signs Date Time Temp Pulse Resp B/P Pulse Ox O2 Delivery O2 Flow Rate FiO2 10/20/16 16:35 90 10/20/16 15:30 14 97 30 10/20/16 11:15 97.7 126/73 10/18/16 08:00 Mechanical Ventilator Intake and Output 10/19/16 10/19/16 10/20/16 15:00 23:00 07:00 Intake Total 610 ml Output Total 1000 ml Balance -390 ml Exam GENERAL: This is a well-developed male on ventilator support, does not respond to verbal internal stimuli. HEENT: Head is atraumatic, normocephalic. Pupils equal, round, reactive to light and accommodation. NECK: Supple. Tracheostomy at the base of the neck. CHEST: Scattered rhonchi bilaterally, slightly diminished at the bases. No wheezes noted. HEART: Normal S1, S2. No murmurs, gallops, clicks, rubs noted. ABDOMEN: Protuberant, soft, nondistended, nontender. Bowel sounds present. EXTREMITIES: Mild edema. There is no clubbing or cyanosis. Pulses equal bilaterally 2+. SKIN: There is no rash, petechiae noted. NEUROLOGIC: The patient is obtunded. Results Result Diagram: 10/20/16 0708 10/20/16 0708 Results 24 hrs Laboratory Tests Test 10/19/16 18:05 10/20/16 00:12 10/20/16 06:41 10/20/16 07:08 Bedside Glucose 189 224 H 220 Anion Gap 11 Basophils # 0.0 Basophils % 0.3 Blood Morphology Comment Blood Urea Nitrogen 9 Calcium Level 7.9 L Carbon Dioxide Level 28 Chloride Level 99 Creatinine 0.27 L Eosinophils # 0.1 Eosinophils % 0.4 Glucose Level 199 Hematocrit 30.8 L Hemoglobin 10.7 L Lymphocytes # 0.9 Lymphocytes % 6.4 L Magnesium Level 1.9 Mean Corpuscular Hemoglobin 32.0 Mean Corpuscular Hemoglobin Concent 34.6 Mean Corpuscular Volume 92.4 Mean Platelet Volume 7.4 Monocytes # 1.5 H Monocytes % 11.3 H Neutrophils # 11.2 H Neutrophils % 81.6 H Nucleated Red Blood Cells # 0.0 Nucleated Red Blood Cells % 0.0 Platelet Count 226 Potassium Level 4.2 Red Blood Count 3.33 L Red Cell Distribution Width 16.7 H Sodium Level 134 L White Blood Count 13.7 #H Test 10/20/16 12:28 Bedside Glucose 218 Medications Medications Current Medications Ondansetron HCl (Zofran Inj) 4 mg Q6H PRN IV NAUSEA AND/OR VOMITING Last administered on 10/16/16 09:08; Admin Dose 4 MG; Start 10/10/16 at 14:00 Nitroglycerin (Nitroglycerin (Sl Tab) 0.4 Mg) 1 tab Q5M PRN SL CHEST PAIN; Start 10/10/16 at 14:00 Acetaminophen (Tylenol Supp) 650 mg Q4H PRN [place] PAIN LEVEL 1-3 OR FEVER Last administered on 10/16/16 22:11; Admin Dose 650 MG; Start 10/10/16 at 14:00 Morphine Sulfate (morphine) 2 mg Q4H PRN IV PAIN LEVEL 7-10; Start 10/10/16 at 14:00 Lorazepam (Ativan) 1 mg Q2H PRN IV ANXIETY Last administered on 10/15/16 20:27 ; Admin Dose 1 MG; Start 10/10/16 at 14:00 Docusate Sodium 100 mg 100 mg Q12H PRN PO CONSTIPATION; Start 10/10/16 at 14:00 Levetiracetam/ Sodium Chloride (Keppra Iv/NS) 110 ml @ 440 mls/hr Q12 IVPB Last administered on 10/20/16 09:06; Admin Dose 440 MLS/HR; Start 10/10/16 at 14:00 Hydralazine HCl (Apresoline) 10 mg Q6H PRN IV ELEVATED BLOOD PRESSURE Last administered on 10/15/16 15:05; Admin Dose 10 MG; Start 10/10/16 at 19:00 Desmopressin Acetate (Ddavp) 0.2 mg TID PO Last administered on 10/20/16 12:45 ; Admin Dose 0.2 MG; Start 10/14/16 at 10:30 Atorvastatin Calcium (Lipitor) 40 mg QHS GTB Last administered on 10/19/16 21: 33; Admin Dose 40 MG; Start 10/15/16 at 21:00 Benazepril HCl (Lotensin) 10 mg DAILY GTB Last administered on 10/20/16 09:05 ; Admin Dose 10 MG; Start 10/15/16 at 12:00 Docusate Sodium (Colace Liquid Cup) 200 mg DAILY PRN GTB CONSTIPATION Last administered on 10/16/16 08:44; Admin Dose 200 MG; Start 10/15/16 at 12:00 Ferrous Sulfate (Feosol Liquid Cup) 330 mg DAILY GTB Last administered on 09:03; Admin Dose 330 MG; Start 10/16/16 at 09:00 Hydralazine HCl (Apresoline) 25 mg Q6H PRN GTB ELEVATED BLOOD PRESSURE; Start 10/15/16 at 12:00 Mineral Oil (Fleet Mineral Oil Enema) 133 ml DAILY PRN [place] CONSTIPATION Last administered on 10/16/16 03:54; Admin Dose 133 ML; Start 10/15/16 at 12:00 Multivitamins Therapeutic (Theragran) 1 tab DAILY PO Last administered on 09:04; Admin Dose 1 TAB; Start 10/15/16 at 12:00 Potassium Chloride (Potassium Chloride Pwd/Soln) 40 meq DAILY GTB Last administered on 10/20/16 09:05; Admin Dose 40 MEQ; Start 10/16/16 at 09:00 Miscellaneous Information 1 ea NOTE XX ; Start 10/15/16 at 21:30 Glucose (Glutose) 15 gm Q15M PRN PO DECREASED GLUCOSE; Start 10/15/16 at 21:30 Glucose (Glutose) 22.5 gm Q15M PRN PO DECREASED GLUCOSE; Start 10/15/16 at 21: 30 Dextrose (D50w Syringe) 25 ml Q15M PRN IV DECREASED GLUCOSE Last administered on 10/16/16 16:31; Admin Dose 25 ML; Start 10/15/16 at 21:30 Dextrose (D50w Syringe) 50 ml Q15M PRN IV DECREASED GLUCOSE; Start 10/15/16 at 21:30 Glucagon (Glucagen) 1 mg Q15M PRN IM DECREASED GLUCOSE; Start 10/15/16 at 21:30 Glucose (Glutose) 15 gm Q15M PRN BUCCAL DECREASED GLUCOSE; Start 10/15/16 at 21 :30 Metoclopramide HCl (Reglan) 10 mg Q6 IV Last administered on 10/20/16 11:04; Admin Dose 10 MG; Start 10/16/16 at 18:00 Lactobacillus Acidoph/Bulgaricus (Floranex) 2 tab BID PO Last administered on 09:04; Admin Dose 2 TAB; Start 10/16/16 at 21:00 Lactulose (Enulose) 30 gm BID GTB Last administered on 10/20/16 09:03; Admin Dose 30 GM; Start 10/16/16 at 21:00 Lansoprazole (Prevacid) 30 mg BID@ GTB Last administered on 10/20/16 06: 42; Admin Dose 30 MG; Start 10/17/16 at 06:00 Carbidopa/Levodopa (Sinemet (25/ 100)) 1 tab TID GTB Last administered on 12:45; Admin Dose 1 TAB; Start 10/16/16 at 21:00 Lidocaine (Lidocaine 5% Oint) 1 applic TID TOP Last administered on 10/20/16 12:46; Admin Dose 1 APPLIC; Start 10/16/16 at 21:00 Metoprolol Tartrate (Lopressor) 12.5 mg BID GTB Last administered on 10/20/16 09:06; Admin Dose 12.5 MG; Start 10/16/16 at 21:00 Nystatin (Nystatin Susp) 5 ml QID PO Last administered on 10/20/16 12:45; Admin Dose 5 ML; Start 10/16/16 at 21:00 Insulin Aspart (Novolog Insulin Pen) NOVOLOG *MILD* ALGORI... Q4 SC ; Start at 17:00 Insulin Glargine (Lantus) 24 unit DAILY@20 SC ; Start 10/20/16 at 20:00 ALTHEA ACOSTA Oct 20, 2016 17:05
[2016-10-20] MEDS: PIPER-TAZO 3.375 GM IV (PMX) 100 ML IVPB SCH ×2 (17:49→22:01)
[2016-10-20] MEDS: ATORVASTATIN 40 MG TAB GTB SCH (20:56)
[2016-10-20] MEDS: INSULIN GLARGINE [LANtus] 3 ML PEN SC SCH (20:59)
[2016-10-21] VITALS (24 sets, daily range): BP systolic 99–145; BP diastolic 57–74; PULSE 64–73; RESP 14–20
[2016-10-21] MEDS: METOCLOPRAMIDE 10 MG INJ IV SCH ×4 (00:16→17:17)
[2016-10-21] MEDS: INSULIN ASPART [NOVOLOG] 3 ML PEN SC SCH ×6 (00:21→21:00)
[2016-10-21] MEDS: LANSOPRAZOLE 30 MG CAP GTB SCH ×2 (06:29→17:16)
[2016-10-21] MEDS: PIPER-TAZO 3.375 GM IV (PMX) 100 ML IVPB SCH (06:29)
[2016-10-21 07:52] LABS: POTASSIUM 3.7 mmol/L (3.5-5.1)
[2016-10-21 07:54] LABS: CREATININE 0.28 mg/dl (0.61-1.24)
[2016-10-21 07:55] LABS: CALCIUM 7.6 mg/dl (8.4-10.2)
[2016-10-21 09:16] LABS: BASOPHILS % 0.4 % (0.0-2.0); EOSINOPHILS # 0.1 10^3/ul (0.0-0.5); EOSINOPHILS % 0.7 % (0.0-7.0); HEMATOCRIT 27.3 % (42.0-52.0); HEMOGLOBIN 9.3 g/dl (14.0-18.0); LYMPHOCYTES # 0.8 10^3/ul (0.8-2.9); LYMPHOCYTES % 7.3 % (15.0-51.0); MEAN CORPUSCULAR HEMOGLOBIN 31.8 pg (29.0-33.0); MEAN CORPUSCULAR HGB CONC 34.2 g/dl (32.0-37.0); MEAN CORPUSCULAR VOLUME 93.1 fl (82.0-101.0); MEAN PLATELET VOLUME 7.7 fl (7.4-10.4); MONOCYTE # 1.1 10^3/ul (0.3-0.9); MONOCYTES % 10.1 % (0.0-11.0); NEUTROPHIL # 8.6 10^3/ul (1.6-7.5); NEUTROPHILS % 81.5 % (39.0-77.0); PLATELET COUNT 202 10^3/UL (140-440); RED BLOOD COUNT 2.93 10^6/ul (4.70-6.10); UNCORRECTED WBC 10.6 10^3/ul (4.8-10.8); WHITE BLOOD COUNT 10.6 10^3/ul (4.8-10.8)
[2016-10-21 09:19] LABS: CONDITION 1; LH ANALYZER COMMENTS 1
[2016-10-21] MEDS: NYSTATIN SUSP 5 ML CUP PO SCH ×4 (10:16→21:03)
[2016-10-21] MEDS: LACTULOSE 30ML CUP GTB SCH ×2 (10:16→21:00)
[2016-10-21] MEDS: FERROUS SULFATE 60 MG/ML 5ML CUP GTB SCH (10:17)
[2016-10-21] MEDS: CARBIDOPA/LEVODOPA (25/100) TAB GTB SCH ×3 (10:17→21:04)
[2016-10-21] MEDS: MULTIVITAMINS THERAPEUTIC TAB PO SCH (10:18)
[2016-10-21] MEDS: METOPROLOL 25 MG TAB GTB SCH ×2 (10:26→21:00)
[2016-10-21] MEDS: LACTOBACILLUS CHEW TAB PO SCH ×2 (10:27→21:03)
[2016-10-21] MEDS: POTASSIUM CHLORIDE 20 MEQ POWDER FOR ORAL SOLN GTB SCH (10:27)
[2016-10-21] MEDS: BENAZEPRIL 10 MG TAB GTB SCH (10:27)
[2016-10-21] MEDS: LIDOCAINE 5% 35 GM OINT TOP SCH ×3 (10:28→21:05)
[2016-10-21] MEDS: DESMOPRESSIN 0.1 MG TAB PO SCH ×3 (10:28→21:04)
[2016-10-21] MEDS: LEVETIRACETAM IV 1,000 MG in SOD CHLORIDE 0.9% 100 ML IVPB SCH ×2 (10:28→22:10)
--- NOTE | 2016-10-21 11:11 | CONS ---
Date/Time of Note Date/Time of Note DATE: 10/21/16 TIME: 11:09 Assessment/Plan Assessment/Plan Additional Assessment/Plan 1. Severe hyponatremia with a sodium of 119, possibly acute on chronic hyponatremia versus acute severe hyponatremia.- pt went from hyponatremia to hypernatremia with treatment with 3% saline and one dose of tolvaptan - then Improved to normal today wtih D5W IVF and DDAVP 0.2mg PO x2 dose 10/15/16- on again Na dropped to 119 s/p Tovlaptan 15 mg PO x1 on 10/18/16 2. Seizures secondary to severe hyponatremia. 3. Sepsis secondary to bilateral pneumonia. 4. Ventilator-dependent respiratory failure, status post tracheostomy, on vent. 5. History of a previous brain tumor, had surgery. Currently, status post ventriculoperitoneal shunt in place. 6. History of a previous cerebellar cerebrovascular accident. PLAN: pt received 3 % saline and tolvaptan one dose on 10/10 and 10/11- went into polyuria, Na went from hyponatremia to hypernatremia- now improved to normal with D5W IVF and 2 dose of DDAVP 0.2mg- again today 10/16- na dropped from 140 to 122- given 3% hypertonic saline for another 12 hr - did not respond well, Na again dropped to 119- One dose of tolvaptan 15 mg X 1 10/18/16- Na improved to 133 today onTube feeding with diabetosource monitor Na, pt has acute on chronic hyponatremia ventilator care as per pulmonary will follow up Consultation Date/Type/Reason Admit Date/Time Oct 10, 2016 at 13:53 Initial Consult Date 10/10/16 Type of Consultation: NEPHROLOGY Reason for Consultation Hyponatremia>hypernatremia>hyponatremia Referring Provider: MADDY HOPKINS MD 24 HR Interval Summary Free Text/Dictation Na 133, Bp stable,afebrile, Exam/Review of Systems Vital Signs Vitals Vital Signs Date Time Temp Pulse Resp B/P Pulse Ox O2 Delivery O2 Flow Rate FiO2 10/21/16 11:06 69 14 98 30 10/21/16 10:58 98.7 124/73 10/18/16 08:00 Mechanical Ventilator Intake and Output 10/20/16 10/20/16 10/21/16 15:00 23:00 07:00 Intake Total 110 ml 760 ml 560 ml Output Total 500 ml 400 ml Balance 110 ml 260 ml 160 ml Exam HEENT: Tracheostomy site is clear. LUNGS: Bilateral coarse breath sounds with bilateral basilar rales present and lower lobe rhonchi present. HEART: S1, S2, tachycardia, no murmur. ABDOMEN: Soft. G-tube in place. EXTREMITIES: No clubbing, cyanosis, or edema. The patient is very debilitated. PSYCHIATRIC: Not able to assess. NEUROLOGICAL: Not able to assess. , + steve catheter in place Results Result Diagram: 10/21/16 0640 10/21/16 0640 Results 24 hrs Laboratory Tests Test 10/20/16 12:28 10/20/16 17:50 10/20/16 20:36 10/21/16 00:19 Bedside Glucose 218 242 H 216 180 Test 10/21/16 04:12 10/21/16 06:40 10/21/16 10:15 Bedside Glucose 160 88 Anion Gap 11 Basophils # 0.0 Basophils % 0.4 Blood Morphology Comment Blood Urea Nitrogen 13 Calcium Level 7.6 L Carbon Dioxide Level 29 Chloride Level 97 Creatinine 0.28 L Eosinophils # 0.1 Eosinophils % 0.7 Glucose Level 106 # Hematocrit 27.3 L Hemoglobin 9.3 L Lymphocytes # 0.8 Lymphocytes % 7.3 L Mean Corpuscular Hemoglobin 31.8 Mean Corpuscular Hemoglobin Concent 34.2 Mean Corpuscular Volume 93.1 Mean Platelet Volume 7.7 Monocytes # 1.1 H Monocytes % 10.1 Neutrophils # 8.6 H Neutrophils % 81.5 H Nucleated Red Blood Cells # 0.0 Nucleated Red Blood Cells % 0.0 Platelet Count 202 Potassium Level 3.7 Red Blood Count 2.93 L Red Cell Distribution Width 16.0 H Sodium Level 133 L White Blood Count 10.6 # Medications Medications Current Medications Ondansetron HCl (Zofran Inj) 4 mg Q6H PRN IV NAUSEA AND/OR VOMITING Last administered on 10/16/16 09:08; Admin Dose 4 MG; Start 10/10/16 at 14:00 Nitroglycerin (Nitroglycerin (Sl Tab) 0.4 Mg) 1 tab Q5M PRN SL CHEST PAIN; Start 10/10/16 at 14:00 Acetaminophen (Tylenol Supp) 650 mg Q4H PRN [place] PAIN LEVEL 1-3 OR FEVER Last administered on 10/16/16 22:11; Admin Dose 650 MG; Start 10/10/16 at 14:00 Morphine Sulfate (morphine) 2 mg Q4H PRN IV PAIN LEVEL 7-10; Start 10/10/16 at 14:00 Lorazepam (Ativan) 1 mg Q2H PRN IV ANXIETY Last administered on 10/15/16 20:27 ; Admin Dose 1 MG; Start 10/10/16 at 14:00 Docusate Sodium 100 mg 100 mg Q12H PRN PO CONSTIPATION; Start 10/10/16 at 14:00 Levetiracetam/ Sodium Chloride (Keppra Iv/NS) 110 ml @ 440 mls/hr Q12 IVPB Last administered on 10/21/16 10:28; Admin Dose 440 MLS/HR; Start 10/10/16 at 14:00 Hydralazine HCl (Apresoline) 10 mg Q6H PRN IV ELEVATED BLOOD PRESSURE Last administered on 10/15/16 15:05; Admin Dose 10 MG; Start 10/10/16 at 19:00 Desmopressin Acetate (Ddavp) 0.2 mg TID PO Last administered on 10/21/16 10:28 ; Admin Dose 0.2 MG; Start 10/14/16 at 10:30 Atorvastatin Calcium (Lipitor) 40 mg QHS GTB Last administered on 10/20/16 20: 56; Admin Dose 40 MG; Start 10/15/16 at 21:00 Benazepril HCl (Lotensin) 10 mg DAILY GTB Last administered on 10/21/16 10:27 ; Admin Dose 10 MG; Start 10/15/16 at 12:00 Docusate Sodium (Colace Liquid Cup) 200 mg DAILY PRN GTB CONSTIPATION Last administered on 10/16/16 08:44; Admin Dose 200 MG; Start 10/15/16 at 12:00 Ferrous Sulfate (Feosol Liquid Cup) 330 mg DAILY GTB Last administered on 10:17; Admin Dose 330 MG; Start 10/16/16 at 09:00 Hydralazine HCl (Apresoline) 25 mg Q6H PRN GTB ELEVATED BLOOD PRESSURE; Start 10/15/16 at 12:00 Mineral Oil (Fleet Mineral Oil Enema) 133 ml DAILY PRN [place] CONSTIPATION Last administered on 10/16/16 03:54; Admin Dose 133 ML; Start 10/15/16 at 12:00 Multivitamins Therapeutic (Theragran) 1 tab DAILY PO Last administered on 10:18; Admin Dose 1 TAB; Start 10/15/16 at 12:00 Potassium Chloride (Potassium Chloride Pwd/Soln) 40 meq DAILY GTB Last administered on 10/21/16 10:27; Admin Dose 40 MEQ; Start 10/16/16 at 09:00 Miscellaneous Information 1 ea NOTE XX ; Start 10/15/16 at 21:30 Glucose (Glutose) 15 gm Q15M PRN PO DECREASED GLUCOSE; Start 10/15/16 at 21:30 Glucose (Glutose) 22.5 gm Q15M PRN PO DECREASED GLUCOSE; Start 10/15/16 at 21: 30 Dextrose (D50w Syringe) 25 ml Q15M PRN IV DECREASED GLUCOSE Last administered on 10/16/16 16:31; Admin Dose 25 ML; Start 10/15/16 at 21:30 Dextrose (D50w Syringe) 50 ml Q15M PRN IV DECREASED GLUCOSE; Start 10/15/16 at 21:30 Glucagon (Glucagen) 1 mg Q15M PRN IM DECREASED GLUCOSE; Start 10/15/16 at 21:30 Glucose (Glutose) 15 gm Q15M PRN BUCCAL DECREASED GLUCOSE; Start 10/15/16 at 21 :30 Metoclopramide HCl (Reglan) 10 mg Q6 IV Last administered on 10/21/16 06:29; Admin Dose 10 MG; Start 10/16/16 at 18:00 Lactobacillus Acidoph/Bulgaricus (Floranex) 2 tab BID PO Last administered on 10:27; Admin Dose 2 TAB; Start 10/16/16 at 21:00 Lactulose (Enulose) 30 gm BID GTB Last administered on 10/21/16 10:16; Admin Dose 30 GM; Start 10/16/16 at 21:00 Lansoprazole (Prevacid) 30 mg BID@,18 GTB Last administered on 10/21/16 06: 29; Admin Dose 30 MG; Start 10/17/16 at 06:00 Carbidopa/Levodopa (Sinemet (25/ 100)) 1 tab TID GTB Last administered on 10:17; Admin Dose 1 TAB; Start 10/16/16 at 21:00 Lidocaine (Lidocaine 5% Oint) 1 applic TID TOP Last administered on 10/21/16 10:28; Admin Dose 1 APPLIC; Start 10/16/16 at 21:00 Metoprolol Tartrate (Lopressor) 12.5 mg BID GTB Last administered on 10/21/16 10:26; Admin Dose 12.5 MG; Start 10/16/16 at 21:00 Nystatin (Nystatin Susp) 5 ml QID PO Last administered on 10/21/16 10:16; Admin Dose 5 ML; Start 10/16/16 at 21:00 Insulin Aspart (Novolog Insulin Pen) NOVOLOG *MILD* ALGORI... Q4 SC Last administered on 10/21/16 04:15; Admin Dose 1 UNIT; Start 10/20/16 at 17:00 Insulin Glargine 24 unit 24 unit DAILY@20 SC Last administered on 10/20/16 20: 59; Admin Dose 24 UNIT; Start 10/20/16 at 20:00 Piperacillin Sod/ Tazobactam Sod (Zosyn 3.375gm/ 100 ml (Pmx)) 100 ml @ 200 mls /hr Q8 IVPB Last administered on 10/21/16 06:29; Admin Dose 200 MLS/HR; Start 10/20/16 at 17:30 LISSA PARK MD Oct 21, 2016 11:11
--- NOTE | 2016-10-21 11:20 | CONS ---
Date/Time of Note Date/Time of Note DATE: 10/21/16 TIME: : Assessment/Plan Assessment/Plan Additional Assessment/Plan Ventilator settings; assist control of 14, tidal volume 500, PEEP of 5, 30% FiO2. Assessment and recommendations; 1. Patient admitted with sepsis due to UTI with significant clinical improvement. 2. Diabetes insipidus with hypernatremia responding well to desmopressin. 3. Stable seizure disorder. 4. Hypertension. Continue current supportive care. Consultation Date/Type/Reason Admit Date/Time Oct 10, 2016 at 13:53 Initial Consult Date 10/10/16 Type of Consultation: Pulmonary Referring Provider: MADDY HOPKINS MD 24 HR Interval Summary Free Text/Dictation Patient condition remains stable. Has remained hemodynamically stable. No seizure activity noted. He is unresponsive due to anoxic brain injury. Remains ventilator dependent. General examination; middle-aged man, on ventilator via tracheostomy unresponsive. Currently in no distress. Exam/Review of Systems Vital Signs Vitals Vital Signs Date Time Temp Pulse Resp B/P Pulse Ox O2 Delivery O2 Flow Rate FiO2 10/21/16 11:06 69 14 98 30 10/21/16 10:58 98.7 124/73 10/18/16 08:00 Mechanical Ventilator Intake and Output 10/20/16 10/20/16 10/21/16 15:00 23:00 07:00 Intake Total 110 ml 760 ml 560 ml Output Total 500 ml 400 ml Balance 110 ml 260 ml 160 ml Exam HEENT examination; supple neck, no JVD. No lymphadenopathy. Midline trachea. Tracheostomy in place with clean insertion site. It was a small bilaterally. There are multiple well-healed craniotomy scars. Chest examination; clear to auscultation. S1-S2 audible, no murmurs. Regular rhythm. Abdomen examination; soft, G-tube in place. Nondistended. No organomegaly. Bowel sounds audible. Extremity examination; no peripheral edema. Pulses 1+ bilaterally. [employer] examination; patient remains unresponsive. Results Result Diagram: 10/21/16 0640 10/21/16 0640 Results 24 hrs Laboratory Tests Test 10/20/16 12:28 10/20/16 17:50 10/20/16 20:36 10/21/16 00:19 Bedside Glucose 218 242 H 216 180 Test 10/21/16 04:12 10/21/16 06:40 10/21/16 10:15 Bedside Glucose 160 88 Anion Gap 11 Basophils # 0.0 Basophils % 0.4 Blood Morphology Comment Blood Urea Nitrogen 13 Calcium Level 7.6 L Carbon Dioxide Level 29 Chloride Level 97 Creatinine 0.28 L Eosinophils # 0.1 Eosinophils % 0.7 Glucose Level 106 # Hematocrit 27.3 L Hemoglobin 9.3 L Lymphocytes # 0.8 Lymphocytes % 7.3 L Mean Corpuscular Hemoglobin 31.8 Mean Corpuscular Hemoglobin Concent 34.2 Mean Corpuscular Volume 93.1 Mean Platelet Volume 7.7 Monocytes # 1.1 H Monocytes % 10.1 Neutrophils # 8.6 H Neutrophils % 81.5 H Nucleated Red Blood Cells # 0.0 Nucleated Red Blood Cells % 0.0 Platelet Count 202 Potassium Level 3.7 Red Blood Count 2.93 L Red Cell Distribution Width 16.0 H Sodium Level 133 L White Blood Count 10.6 # Medications Medications Current Medications Ondansetron HCl (Zofran Inj) 4 mg Q6H PRN IV NAUSEA AND/OR VOMITING Last administered on 10/16/16 09:08; Admin Dose 4 MG; Start 10/10/16 at 14:00 Nitroglycerin (Nitroglycerin (Sl Tab) 0.4 Mg) 1 tab Q5M PRN SL CHEST PAIN; Start 10/10/16 at 14:00 Acetaminophen (Tylenol Supp) 650 mg Q4H PRN [place] PAIN LEVEL 1-3 OR FEVER Last administered on 10/16/16 22:11; Admin Dose 650 MG; Start 10/10/16 at 14:00 Morphine Sulfate (morphine) 2 mg Q4H PRN IV PAIN LEVEL 7-10; Start 10/10/16 at 14:00 Lorazepam (Ativan) 1 mg Q2H PRN IV ANXIETY Last administered on 10/15/16 20:27 ; Admin Dose 1 MG; Start 10/10/16 at 14:00 Docusate Sodium 100 mg 100 mg Q12H PRN PO CONSTIPATION; Start 10/10/16 at 14:00 Levetiracetam/ Sodium Chloride (Keppra Iv/NS) 110 ml @ 440 mls/hr Q12 IVPB Last administered on 10/21/16 10:28; Admin Dose 440 MLS/HR; Start 10/10/16 at 14:00 Hydralazine HCl (Apresoline) 10 mg Q6H PRN IV ELEVATED BLOOD PRESSURE Last administered on 10/15/16 15:05; Admin Dose 10 MG; Start 10/10/16 at 19:00 Desmopressin Acetate (Ddavp) 0.2 mg TID PO Last administered on 10/21/16 10:28 ; Admin Dose 0.2 MG; Start 10/14/16 at 10:30 Atorvastatin Calcium (Lipitor) 40 mg QHS GTB Last administered on 10/20/16 20: 56; Admin Dose 40 MG; Start 10/15/16 at 21:00 Benazepril HCl (Lotensin) 10 mg DAILY GTB Last administered on 10/21/16 10:27 ; Admin Dose 10 MG; Start 10/15/16 at 12:00 Docusate Sodium (Colace Liquid Cup) 200 mg DAILY PRN GTB CONSTIPATION Last administered on 10/16/16 08:44; Admin Dose 200 MG; Start 10/15/16 at 12:00 Ferrous Sulfate (Feosol Liquid Cup) 330 mg DAILY GTB Last administered on 10:17; Admin Dose 330 MG; Start 10/16/16 at 09:00 Hydralazine HCl (Apresoline) 25 mg Q6H PRN GTB ELEVATED BLOOD PRESSURE; Start 10/15/16 at 12:00 Mineral Oil (Fleet Mineral Oil Enema) 133 ml DAILY PRN [place] CONSTIPATION Last administered on 10/16/16 03:54; Admin Dose 133 ML; Start 10/15/16 at 12:00 Multivitamins Therapeutic (Theragran) 1 tab DAILY PO Last administered on 10:18; Admin Dose 1 TAB; Start 10/15/16 at 12:00 Potassium Chloride (Potassium Chloride Pwd/Soln) 40 meq DAILY GTB Last administered on 10/21/16 10:27; Admin Dose 40 MEQ; Start 10/16/16 at 09:00 Miscellaneous Information 1 ea NOTE XX ; Start 10/15/16 at 21:30 Glucose (Glutose) 15 gm Q15M PRN PO DECREASED GLUCOSE; Start 10/15/16 at 21:30 Glucose (Glutose) 22.5 gm Q15M PRN PO DECREASED GLUCOSE; Start 10/15/16 at 21: 30 Dextrose (D50w Syringe) 25 ml Q15M PRN IV DECREASED GLUCOSE Last administered on 10/16/16 16:31; Admin Dose 25 ML; Start 10/15/16 at 21:30 Dextrose (D50w Syringe) 50 ml Q15M PRN IV DECREASED GLUCOSE; Start 10/15/16 at 21:30 Glucagon (Glucagen) 1 mg Q15M PRN IM DECREASED GLUCOSE; Start 10/15/16 at 21:30 Glucose (Glutose) 15 gm Q15M PRN BUCCAL DECREASED GLUCOSE; Start 10/15/16 at 21 :30 Metoclopramide HCl (Reglan) 10 mg Q6 IV Last administered on 10/21/16 06:29; Admin Dose 10 MG; Start 10/16/16 at 18:00 Lactobacillus Acidoph/Bulgaricus (Floranex) 2 tab BID PO Last administered on 10:27; Admin Dose 2 TAB; Start 10/16/16 at 21:00 Lactulose (Enulose) 30 gm BID GTB Last administered on 10/21/16 10:16; Admin Dose 30 GM; Start 10/16/16 at 21:00 Lansoprazole (Prevacid) 30 mg BID@,18 GTB Last administered on 10/21/16 06: 29; Admin Dose 30 MG; Start 10/17/16 at 06:00 Carbidopa/Levodopa (Sinemet (25/ 100)) 1 tab TID GTB Last administered on 10:17; Admin Dose 1 TAB; Start 10/16/16 at 21:00 Lidocaine (Lidocaine 5% Oint) 1 applic TID TOP Last administered on 10/21/16 10:28; Admin Dose 1 APPLIC; Start 10/16/16 at 21:00 Metoprolol Tartrate (Lopressor) 12.5 mg BID GTB Last administered on 10/21/16 10:26; Admin Dose 12.5 MG; Start 10/16/16 at 21:00 Nystatin (Nystatin Susp) 5 ml QID PO Last administered on 10/21/16 10:16; Admin Dose 5 ML; Start 10/16/16 at 21:00 Insulin Aspart (Novolog Insulin Pen) NOVOLOG *MILD* ALGORI... Q4 SC Last administered on 10/21/16 04:15; Admin Dose 1 UNIT; Start 10/20/16 at 17:00 Insulin Glargine 24 unit 24 unit DAILY@20 SC Last administered on 10/20/16 20: 59; Admin Dose 24 UNIT; Start 10/20/16 at 20:00 Piperacillin Sod/ Tazobactam Sod (Zosyn 3.375gm/ 100 ml (Pmx)) 100 ml @ 200 mls /hr Q8 IVPB Last administered on 10/21/16 06:29; Admin Dose 200 MLS/HR; Start 10/20/16 at 17:30 JUANA DE LEÓN Oct 21, 2016 11:20
--- NOTE | 2016-10-21 13:52 | CONS ---
Date/Time of Note Date/Time of Note DATE: 10/21/16 TIME: 13:51 Assessment/Plan Assessment/Plan Chief Complaint/Hosp Course SUBJECTIVE: No fevers, no diarrhea, tolerates tube feeding, lying comfortably in bed. INDWELLINGS: Trach, PEG, Knapp, peripheral IV. PHYSICAL EXAMINATION: GENERAL: Chronically ill-appearing, middle-aged man who is lying comfortably in bed. HEENT: Head atraumatic, normocephalic. Sclerae anicteric. Buccal mucosa dry. NECK: Supple. CHEST: Rise symmetrical. Breath sounds diminished. HEART: S1, S2. ABDOMEN: Soft, bowel tones present. EXTREMITIES: No cyanosis. Bilateral trace edema. ASSESSMENT: 1. Status post sepsis, pneumonia. 2. Status post urinary tract infection. 3. Chronic respiratory failure. 4. Chronic encephalopathy. 5. History of brainstem glioma, status post chemotherapy. 6. Seizure disorder. PLAN: The patient remains clinically unchanged. Started on Zosyn yesterday per primary, will dc abx and observe, ramirez cx prn DW staff ALTAGRACIA Eastman NP Problems: Consultation Date/Type/Reason Admit Date/Time Oct 10, 2016 at 13:53 Initial Consult Date 10/10/16 Type of Consultation: ID Referring Provider: MADDY HOPKINS MD Exam/Review of Systems Vital Signs Vitals Vital Signs Date Time Temp Pulse Resp B/P Pulse Ox O2 Delivery O2 Flow Rate FiO2 10/21/16 13:14 67 14 98 30 10/21/16 10:58 98.7 124/73 10/18/16 08:00 Mechanical Ventilator Intake and Output 10/20/16 10/20/16 10/21/16 15:00 23:00 07:00 Intake Total 110 ml 760 ml 560 ml Output Total 500 ml 400 ml Balance 110 ml 260 ml 160 ml Results Result Diagram: 10/21/16 0640 10/21/16 0640 Results 24 hrs Laboratory Tests Test 10/20/16 17:50 10/20/16 20:36 10/21/16 00:19 10/21/16 04:12 Bedside Glucose 242 H 216 180 160 Test 10/21/16 06:40 10/21/16 10:15 10/21/16 11:34 10/21/16 13:33 Anion Gap 11 Basophils # 0.0 Basophils % 0.4 Blood Morphology Comment Blood Urea Nitrogen 13 Calcium Level 7.6 L Carbon Dioxide Level 29 Chloride Level 97 Creatinine 0.28 L Eosinophils # 0.1 Eosinophils % 0.7 Glucose Level 106 # Hematocrit 27.3 L Hemoglobin 9.3 L Lymphocytes # 0.8 Lymphocytes % 7.3 L Mean Corpuscular Hemoglobin 31.8 Mean Corpuscular Hemoglobin Concent 34.2 Mean Corpuscular Volume 93.1 Mean Platelet Volume 7.7 Monocytes # 1.1 H Monocytes % 10.1 Neutrophils # 8.6 H Neutrophils % 81.5 H Nucleated Red Blood Cells # 0.0 Nucleated Red Blood Cells % 0.0 Platelet Count 202 Potassium Level 3.7 Red Blood Count 2.93 L Red Cell Distribution Width 16.0 H Sodium Level 133 L White Blood Count 10.6 # Bedside Glucose 88 99 107 Medications Medications Current Medications Ondansetron HCl (Zofran Inj) 4 mg Q6H PRN IV NAUSEA AND/OR VOMITING Last administered on 10/16/16 09:08; Admin Dose 4 MG; Start 10/10/16 at 14:00 Nitroglycerin (Nitroglycerin (Sl Tab) 0.4 Mg) 1 tab Q5M PRN SL CHEST PAIN; Start 10/10/16 at 14:00 Acetaminophen (Tylenol Supp) 650 mg Q4H PRN OR PAIN LEVEL 1-3 OR FEVER Last administered on 10/16/16 22:11; Admin Dose 650 MG; Start 10/10/16 at 14:00 Morphine Sulfate (morphine) 2 mg Q4H PRN IV PAIN LEVEL 7-10; Start 10/10/16 at 14:00 Lorazepam (Ativan) 1 mg Q2H PRN IV ANXIETY Last administered on 10/15/16 20:27 ; Admin Dose 1 MG; Start 10/10/16 at 14:00 Docusate Sodium 100 mg 100 mg Q12H PRN PO CONSTIPATION; Start 10/10/16 at 14:00 Levetiracetam/ Sodium Chloride (Keppra Iv/NS) 110 ml @ 440 mls/hr Q12 IVPB Last administered on 10/21/16 10:28; Admin Dose 440 MLS/HR; Start 10/10/16 at 14:00 Hydralazine HCl (Apresoline) 10 mg Q6H PRN IV ELEVATED BLOOD PRESSURE Last administered on 10/15/16 15:05; Admin Dose 10 MG; Start 10/10/16 at 19:00 Desmopressin Acetate (Ddavp) 0.2 mg TID PO Last administered on 10/21/16 13:31 ; Admin Dose 0.2 MG; Start 10/14/16 at 10:30 Atorvastatin Calcium (Lipitor) 40 mg QHS GTB Last administered on 10/20/16 20: 56; Admin Dose 40 MG; Start 10/15/16 at 21:00 Benazepril HCl (Lotensin) 10 mg DAILY GTB Last administered on 10/21/16 10:27 ; Admin Dose 10 MG; Start 10/15/16 at 12:00 Docusate Sodium (Colace Liquid Cup) 200 mg DAILY PRN GTB CONSTIPATION Last administered on 10/16/16 08:44; Admin Dose 200 MG; Start 10/15/16 at 12:00 Ferrous Sulfate (Feosol Liquid Cup) 330 mg DAILY GTB Last administered on 10:17; Admin Dose 330 MG; Start 10/16/16 at 09:00 Hydralazine HCl (Apresoline) 25 mg Q6H PRN GTB ELEVATED BLOOD PRESSURE; Start 10/15/16 at 12:00 Mineral Oil (Fleet Mineral Oil Enema) 133 ml DAILY PRN OR CONSTIPATION Last administered on 10/16/16 03:54; Admin Dose 133 ML; Start 10/15/16 at 12:00 Multivitamins Therapeutic (Theragran) 1 tab DAILY PO Last administered on 10:18; Admin Dose 1 TAB; Start 10/15/16 at 12:00 Potassium Chloride (Potassium Chloride Pwd/Soln) 40 meq DAILY GTB Last administered on 10/21/16 10:27; Admin Dose 40 MEQ; Start 10/16/16 at 09:00 Miscellaneous Information 1 ea NOTE XX ; Start 10/15/16 at 21:30 Glucose (Glutose) 15 gm Q15M PRN PO DECREASED GLUCOSE; Start 10/15/16 at 21:30 Glucose (Glutose) 22.5 gm Q15M PRN PO DECREASED GLUCOSE; Start 10/15/16 at 21: 30 Dextrose (D50w Syringe) 25 ml Q15M PRN IV DECREASED GLUCOSE Last administered on 10/16/16 16:31; Admin Dose 25 ML; Start 10/15/16 at 21:30 Dextrose (D50w Syringe) 50 ml Q15M PRN IV DECREASED GLUCOSE; Start 10/15/16 at 21:30 Glucagon (Glucagen) 1 mg Q15M PRN IM DECREASED GLUCOSE; Start 10/15/16 at 21:30 Glucose (Glutose) 15 gm Q15M PRN BUCCAL DECREASED GLUCOSE; Start 10/15/16 at 21 :30 Metoclopramide HCl (Reglan) 10 mg Q6 IV Last administered on 10/21/16 11:38; Admin Dose 10 MG; Start 10/16/16 at 18:00 Lactobacillus Acidoph/Bulgaricus (Floranex) 2 tab BID PO Last administered on 10:27; Admin Dose 2 TAB; Start 10/16/16 at 21:00 Lactulose (Enulose) 30 gm BID GTB Last administered on 10/21/16 10:16; Admin Dose 30 GM; Start 10/16/16 at 21:00 Lansoprazole (Prevacid) 30 mg BID@,18 GTB Last administered on 10/21/16 06: 29; Admin Dose 30 MG; Start 10/17/16 at 06:00 Carbidopa/Levodopa (Sinemet (25/ 100)) 1 tab TID GTB Last administered on 13:31; Admin Dose 1 TAB; Start 10/16/16 at 21:00 Lidocaine (Lidocaine 5% Oint) 1 applic TID TOP Last administered on 10/21/16 13:31; Admin Dose 1 APPLIC; Start 10/16/16 at 21:00 Metoprolol Tartrate (Lopressor) 12.5 mg BID GTB Last administered on 10/21/16 10:26; Admin Dose 12.5 MG; Start 10/16/16 at 21:00 Nystatin (Nystatin Susp) 5 ml QID PO Last administered on 10/21/16 13:30; Admin Dose 5 ML; Start 10/16/16 at 21:00 Insulin Aspart (Novolog Insulin Pen) NOVOLOG *MILD* ALGORI... Q4 SC Last administered on 10/21/16 04:15; Admin Dose 1 UNIT; Start 10/20/16 at 17:00 Insulin Glargine 24 unit 24 unit DAILY@20 SC Last administered on 10/20/16 20: 59; Admin Dose 24 UNIT; Start 10/20/16 at 20:00 Piperacillin Sod/ Tazobactam Sod (Zosyn 3.375gm/ 100 ml (Pmx)) 100 ml @ 200 mls /hr Q8 IVPB Last administered on 10/21/16 06:29; Admin Dose 200 MLS/HR; Start 10/20/16 at 17:30 ROSANGELA C[employer]ONA ACCOUNTING INTERN Oct 21, 2016 13:52
--- NOTE | 2016-10-21 15:51 | PN ---
Date/Time of Note Date/Time of Note DATE: 10/21/16 TIME: 15:49 Assessment/Plan VTE Prophylaxis VTE Prophylaxis Intervention: SCD's Lines/Catheters IV C[facility]ter Type (from [facility]): Saline Lock Urinary Cath still in place: Yes Reason Cath still needed: urinary retention Assessment/Plan Chief Complaint/Hosp Course ASSESSMENT AND PLAN: - Leukocytosis, s/p emesis, continue empiric abx for possible aspiration. - Sepsis secondary to urinary tract infection and healthcare-acquired pneumonia. Patient is followed by Dr. Sales in infectious disease consultation. Continue antibiotics per ID. - Ventilator dependent respiratory failure. Dr. Unger is following from pulmonology standpoint. Continue bronchodilators and ventilatory support. 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 - Seizure disorder. Continue Keppra. - Hypertension, continue benazepril and hydralazine. - Hyponatremia, improved on DDAVP. Patient is followed by Dr. Tovar in nephrology consultation. - History of cerebrovascular accident. Continue sequential compression device for deep venous thrombosis prophylaxis and Pepcid for peptic ulcer disease prophylaxis. Further recommendations based on clinical course. Plan of care discussed with Dr. Desir. Problems: Subjective 24 Hr Interval Summary Free Text/Dictation Patient remains afebrile, white blood cells are trending down. Exam/Review of Systems Vital Signs Vitals Vital Signs Date Time Temp Pulse Resp B/P Pulse Ox O2 Delivery O2 Flow Rate FiO2 10/21/16 15:16 98.5 70 18 99/58 98 10/21/16 15:10 30 10/18/16 08:00 Mechanical Ventilator Intake and Output 10/20/16 10/20/16 10/21/16 15:00 23:00 07:00 Intake Total 110 ml 760 ml 560 ml Output Total 500 ml 400 ml Balance 110 ml 260 ml 160 ml Exam GENERAL: This is a well-developed male on ventilator support, does not respond to verbal internal stimuli. HEENT: Head is atraumatic, normocephalic. Pupils equal, round, reactive to light and accommodation. NECK: Supple. Tracheostomy at the base of the neck. CHEST: Scattered rhonchi bilaterally, slightly diminished at the bases. No wheezes noted. HEART: Normal S1, S2. No murmurs, gallops, clicks, rubs noted. ABDOMEN: Protuberant, soft, nondistended, nontender. Bowel sounds present. EXTREMITIES: Mild edema. There is no clubbing or cyanosis. Pulses equal bilaterally 2+. SKIN: There is no rash, petechiae noted. NEUROLOGIC: The patient is obtunded. Results Result Diagram: 10/21/16 0640 10/21/16 0640 Results 24 hrs Laboratory Tests Test 10/20/16 17:50 10/20/16 20:36 10/21/16 00:19 10/21/16 04:12 Bedside Glucose 242 H 216 180 160 Test 10/21/16 06:40 10/21/16 10:15 10/21/16 11:34 10/21/16 13:33 Anion Gap 11 Basophils # 0.0 Basophils % 0.4 Blood Morphology Comment Blood Urea Nitrogen 13 Calcium Level 7.6 L Carbon Dioxide Level 29 Chloride Level 97 Creatinine 0.28 L Eosinophils # 0.1 Eosinophils % 0.7 Glucose Level 106 # Hematocrit 27.3 L Hemoglobin 9.3 L Lymphocytes # 0.8 Lymphocytes % 7.3 L Mean Corpuscular Hemoglobin 31.8 Mean Corpuscular Hemoglobin Concent 34.2 Mean Corpuscular Volume 93.1 Mean Platelet Volume 7.7 Monocytes # 1.1 H Monocytes % 10.1 Neutrophils # 8.6 H Neutrophils % 81.5 H Nucleated Red Blood Cells # 0.0 Nucleated Red Blood Cells % 0.0 Platelet Count 202 Potassium Level 3.7 Red Blood Count 2.93 L Red Cell Distribution Width 16.0 H Sodium Level 133 L White Blood Count 10.6 # Bedside Glucose 88 99 107 Medications Medications Current Medications Ondansetron HCl (Zofran Inj) 4 mg Q6H PRN IV NAUSEA AND/OR VOMITING Last administered on 10/16/16 09:08; Admin Dose 4 MG; Start 10/10/16 at 14:00 Nitroglycerin (Nitroglycerin (Sl Tab) 0.4 Mg) 1 tab Q5M PRN SL CHEST PAIN; Start 10/10/16 at 14:00 Acetaminophen (Tylenol Supp) 650 mg Q4H PRN [place] PAIN LEVEL 1-3 OR FEVER Last administered on 10/16/16 22:11; Admin Dose 650 MG; Start 10/10/16 at 14:00 Morphine Sulfate (morphine) 2 mg Q4H PRN IV PAIN LEVEL 7-10; Start 10/10/16 at 14:00 Lorazepam (Ativan) 1 mg Q2H PRN IV ANXIETY Last administered on 10/15/16 20:27 ; Admin Dose 1 MG; Start 10/10/16 at 14:00 Docusate Sodium 100 mg 100 mg Q12H PRN PO CONSTIPATION; Start 10/10/16 at 14:00 Levetiracetam/ Sodium Chloride (Keppra Iv/NS) 110 ml @ 440 mls/hr Q12 IVPB Last administered on 10/21/16 10:28; Admin Dose 440 MLS/HR; Start 10/10/16 at 14:00 Hydralazine HCl (Apresoline) 10 mg Q6H PRN IV ELEVATED BLOOD PRESSURE Last administered on 10/15/16 15:05; Admin Dose 10 MG; Start 10/10/16 at 19:00 Desmopressin Acetate (Ddavp) 0.2 mg TID PO Last administered on 10/21/16 13:31 ; Admin Dose 0.2 MG; Start 10/14/16 at 10:30 Atorvastatin Calcium (Lipitor) 40 mg QHS GTB Last administered on 10/20/16 20: 56; Admin Dose 40 MG; Start 10/15/16 at 21:00 Benazepril HCl (Lotensin) 10 mg DAILY GTB Last administered on 10/21/16 10:27 ; Admin Dose 10 MG; Start 10/15/16 at 12:00 Docusate Sodium (Colace Liquid Cup) 200 mg DAILY PRN GTB CONSTIPATION Last administered on 10/16/16 08:44; Admin Dose 200 MG; Start 10/15/16 at 12:00 Ferrous Sulfate (Feosol Liquid Cup) 330 mg DAILY GTB Last administered on 10:17; Admin Dose 330 MG; Start 10/16/16 at 09:00 Hydralazine HCl (Apresoline) 25 mg Q6H PRN GTB ELEVATED BLOOD PRESSURE; Start 10/15/16 at 12:00 Mineral Oil (Fleet Mineral Oil Enema) 133 ml DAILY PRN [place] CONSTIPATION Last administered on 10/16/16 03:54; Admin Dose 133 ML; Start 10/15/16 at 12:00 Multivitamins Therapeutic (Theragran) 1 tab DAILY PO Last administered on 10:18; Admin Dose 1 TAB; Start 10/15/16 at 12:00 Potassium Chloride (Potassium Chloride Pwd/Soln) 40 meq DAILY GTB Last administered on 10/21/16 10:27; Admin Dose 40 MEQ; Start 10/16/16 at 09:00 Miscellaneous Information 1 ea NOTE XX ; Start 10/15/16 at 21:30 Glucose (Glutose) 15 gm Q15M PRN PO DECREASED GLUCOSE; Start 10/15/16 at 21:30 Glucose (Glutose) 22.5 gm Q15M PRN PO DECREASED GLUCOSE; Start 10/15/16 at 21: 30 Dextrose (D50w Syringe) 25 ml Q15M PRN IV DECREASED GLUCOSE Last administered on 10/16/16 16:31; Admin Dose 25 ML; Start 10/15/16 at 21:30 Dextrose (D50w Syringe) 50 ml Q15M PRN IV DECREASED GLUCOSE; Start 10/15/16 at 21:30 Glucagon (Glucagen) 1 mg Q15M PRN IM DECREASED GLUCOSE; Start 10/15/16 at 21:30 Glucose (Glutose) 15 gm Q15M PRN BUCCAL DECREASED GLUCOSE; Start 10/15/16 at 21 :30 Metoclopramide HCl (Reglan) 10 mg Q6 IV Last administered on 10/21/16 11:38; Admin Dose 10 MG; Start 10/16/16 at 18:00 Lactobacillus Acidoph/Bulgaricus (Floranex) 2 tab BID PO Last administered on 10:27; Admin Dose 2 TAB; Start 10/16/16 at 21:00 Lactulose (Enulose) 30 gm BID GTB Last administered on 10/21/16 10:16; Admin Dose 30 GM; Start 10/16/16 at 21:00 Lansoprazole (Prevacid) 30 mg BID@18 GTB Last administered on 10/21/16 06: 29; Admin Dose 30 MG; Start 10/17/16 at 06:00 Carbidopa/Levodopa (Sinemet (25/ 100)) 1 tab TID GTB Last administered on 13:31; Admin Dose 1 TAB; Start 10/16/16 at 21:00 Lidocaine (Lidocaine 5% Oint) 1 applic TID TOP Last administered on 10/21/16 13:31; Admin Dose 1 APPLIC; Start 10/16/16 at 21:00 Metoprolol Tartrate (Lopressor) 12.5 mg BID GTB Last administered on 10/21/16 10:26; Admin Dose 12.5 MG; Start 10/16/16 at 21:00 Nystatin (Nystatin Susp) 5 ml QID PO Last administered on 10/21/16 13:30; Admin Dose 5 ML; Start 10/16/16 at 21:00 Insulin Aspart (Novolog Insulin Pen) NOVOLOG *MILD* ALGORI... Q4 SC Last administered on 10/21/16 04:15; Admin Dose 1 UNIT; Start 10/20/16 at 17:00 Insulin Glargine (Lantus) 24 unit DAILY@20 SC Last administered on 10/20/16 20 :59; Admin Dose 24 UNIT; Start 10/20/16 at 20:00 ALTHEA ACOSTA Oct 21, 2016 15:51
[2016-10-21] MEDS: ATORVASTATIN 40 MG TAB GTB SCH (21:03)
[2016-10-21] MEDS: INSULIN GLARGINE [LANtus] 3 ML PEN SC SCH (21:11)
[2016-10-22] VITALS (24 sets, daily range): BP systolic 117–158; BP diastolic 69–85; PULSE 61–84; RESP 14–19
[2016-10-22] MEDS: METOCLOPRAMIDE 10 MG INJ IV SCH ×4 (00:44→17:09)
[2016-10-22] MEDS: INSULIN ASPART [NOVOLOG] 3 ML PEN SC SCH ×6 (00:45→20:55)
[2016-10-22] MEDS: LANSOPRAZOLE 30 MG CAP GTB SCH ×2 (05:28→17:09)
[2016-10-22 07:20] LABS: POTASSIUM 4.1 mmol/L (3.5-5.1)
[2016-10-22 07:23] LABS: CREATININE 0.25 mg/dl (0.61-1.24)
[2016-10-22 07:24] LABS: CALCIUM 7.7 mg/dl (8.4-10.2)
[2016-10-22 08:02] LABS: BASOPHIL # 0.1 10^3/ul (0.0-0.1); BASOPHILS % 1.1 % (0.0-2.0); EOSINOPHILS # 0.1 10^3/ul (0.0-0.5); EOSINOPHILS % 1.6 % (0.0-7.0); HEMATOCRIT 28.7 % (42.0-52.0); HEMOGLOBIN 9.5 g/dl (14.0-18.0); LYMPHOCYTES # 0.7 10^3/ul (0.8-2.9); MEAN CORPUSCULAR HEMOGLOBIN 30.8 pg (29.0-33.0); MEAN CORPUSCULAR HGB CONC 33.1 g/dl (32.0-37.0); MEAN CORPUSCULAR VOLUME 93.2 fl (82.0-101.0); MEAN PLATELET VOLUME 9.5 fl (7.4-10.4); NEUTROPHIL # 6.1 10^3/ul (1.6-7.5); NEUTROPHILS % 75.1 % (39.0-77.0); PLATELET COUNT 217 10^3/UL (140-415); RED BLOOD COUNT 3.08 10^6/ul (4.70-6.10); RED CELL DISTRIBUTION WIDTH 14.9 % (11.5-14.5); WHITE BLOOD COUNT 8.1 10^3/ul (4.8-10.8)
[2016-10-22] MEDS: LACTULOSE 30ML CUP GTB SCH ×2 (09:29→20:57)
[2016-10-22] MEDS: FERROUS SULFATE 60 MG/ML 5ML CUP GTB SCH (09:30)
[2016-10-22] MEDS: LEVETIRACETAM IV 1,000 MG in SOD CHLORIDE 0.9% 100 ML IVPB SCH ×2 (09:30→20:57)
[2016-10-22] MEDS: NYSTATIN SUSP 5 ML CUP PO SCH ×4 (09:30→20:55)
[2016-10-22] MEDS: BENAZEPRIL 10 MG TAB GTB SCH (09:32)
[2016-10-22] MEDS: METOPROLOL 25 MG TAB GTB SCH ×2 (09:32→21:08)
[2016-10-22] MEDS: LACTOBACILLUS CHEW TAB PO SCH ×2 (09:32→20:56)
[2016-10-22] MEDS: MULTIVITAMINS THERAPEUTIC TAB PO SCH (09:32)
[2016-10-22] MEDS: CARBIDOPA/LEVODOPA (25/100) TAB GTB SCH ×3 (09:32→20:56)
[2016-10-22] MEDS: POTASSIUM CHLORIDE 20 MEQ POWDER FOR ORAL SOLN GTB SCH (09:32)
[2016-10-22] MEDS: LIDOCAINE 5% 35 GM OINT TOP SCH ×3 (09:33→20:55)
[2016-10-22] MEDS: DESMOPRESSIN 0.1 MG TAB PO SCH (09:41)
--- NOTE | 2016-10-22 10:38 | CONS ---
Date/Time of Note Date/Time of Note DATE: 10/22/16 TIME: 10:35 Assessment/Plan Assessment/Plan Additional Assessment/Plan 1. Severe hyponatremia with a sodium of 119, possibly acute on chronic hyponatremia versus acute severe hyponatremia.- pt went from hyponatremia to hypernatremia with treatment with 3% saline and one dose of tolvaptan - then Improved to normal today wtih D5W IVF and DDAVP 0.2mg PO x2 dose 10/15/16- on again Na dropped to 119 s/p Tovlaptan 15 mg PO x1 on 10/18/16 2. Seizures secondary to severe hyponatremia. 3. Sepsis secondary to bilateral pneumonia. 4. Ventilator-dependent respiratory failure, status post tracheostomy, on vent. 5. History of a previous brain tumor, had surgery. Currently, status post ventriculoperitoneal shunt in place. 6. History of a previous cerebellar cerebrovascular accident. PLAN: pt received 3 % saline and tolvaptan one dose on 10/10 and 10/11- went into polyuria, Na went from hyponatremia to hypernatremia- now improved to normal with D5W IVF and 2 dose of DDAVP 0.2mg- again today 10/16- na dropped from 140 to 122- given 3% hypertonic saline for another 12 hr - did not respond well, Na again dropped to 119- One dose of tolvaptan 15 mg X 1 10/18/16- Na dropped to 130 10/22/2016- will give tolvaptan 15 gram po x 1 dose today onTube feeding with diabeto source monitor Na, pt has acute on chronic hyponatremia ventilator care as per pulmonary will follow up Consultation Date/Type/Reason Admit Date/Time Oct 10, 2016 at 13:53 Initial Consult Date 10/10/16 Type of Consultation: NEPHROLOGY Referring Provider: MADDY HOPKINS MD 24 HR Interval Summary Free Text/Dictation Na dropped to 130, no acute events Exam/Review of Systems Vital Signs Vitals Vital Signs Date Time Temp Pulse Resp B/P Pulse Ox O2 Delivery O2 Flow Rate FiO2 10/22/16 08:22 63 10/22/16 06:54 98.1 18 149/71 100 10/22/16 05:18 30 10/22/16 00:00 Mechanical Ventilator Intake and Output 210/21/16 10/22/16 15:00 23:00 07:00 Intake Total 110 ml 630 ml 580 ml Output Total 400 ml 450 ml Balance 110 ml 230 ml 130 ml Exam HEENT: Tracheostomy site is clear. LUNGS: Bilateral coarse breath sounds with bilateral basilar rales present and lower lobe rhonchi present. HEART: S1, S2, tachycardia, no murmur. ABDOMEN: Soft. G-tube in place. EXTREMITIES: No clubbing, cyanosis, or edema. The patient is very debilitated. PSYCHIATRIC: Not able to assess. NEUROLOGICAL: Not able to assess. , + steve catheter in place Results Result Diagram: 10/22/16 0625 10/22/16 0625 Results 24 hrs Laboratory Tests Test 10/21/16 11:34 10/21/16 13:33 10/21/16 17:09 10/21/16 21:00 Bedside Glucose 99 107 128 122 Test 10/22/16 00:43 10/22/16 05:25 10/22/16 06:25 10/22/16 09:34 Bedside Glucose 116 95 102 Anion Gap 10 Basophils # 0.1 Basophils % 1.1 Blood Urea Nitrogen 14 Calcium Level 7.7 L Carbon Dioxide Level 28 Chloride Level 96 L Creatinine 0.25 L Eosinophils # 0.1 Eosinophils % 1.6 Glucose Level 93 Hematocrit 28.7 L Hemoglobin 9.5 L Lymphocytes # 0.7 L Lymphocytes % 9.0 L Mean Corpuscular Hemoglobin 30.8 Mean Corpuscular Hemoglobin Concent 33.1 Mean Corpuscular Volume 93.2 Mean Platelet Volume 9.5 # Monocytes # 1.0 H Monocytes % 12.0 H Neutrophils # 6.1 Neutrophils % 75.1 Nucleated Red Blood Cells # 0.0 Nucleated Red Blood Cells % 0.0 Platelet Count 217 Potassium Level 4.1 Red Blood Count 3.08 L Red Cell Distribution Width 14.9 H Sodium Level 130 L White Blood Count 8.1 # Medications Medications Current Medications Ondansetron HCl (Zofran Inj) 4 mg Q6H PRN IV NAUSEA AND/OR VOMITING Last administered on 10/16/16 09:08; Admin Dose 4 MG; Start 10/10/16 at 14:00 Nitroglycerin (Nitroglycerin (Sl Tab) 0.4 Mg) 1 tab Q5M PRN SL CHEST PAIN; Start 10/10/16 at 14:00 Acetaminophen (Tylenol Supp) 650 mg Q4H PRN [place] PAIN LEVEL 1-3 OR FEVER Last administered on 10/16/16 22:11; Admin Dose 650 MG; Start 10/10/16 at 14:00 Morphine Sulfate (morphine) 2 mg Q4H PRN IV PAIN LEVEL 7-10; Start 10/10/16 at 14:00 Lorazepam (Ativan) 1 mg Q2H PRN IV ANXIETY Last administered on 10/15/16 20:27 ; Admin Dose 1 MG; Start 10/10/16 at 14:00 Docusate Sodium 100 mg 100 mg Q12H PRN PO CONSTIPATION; Start 10/10/16 at 14:00 Levetiracetam/ Sodium Chloride (Keppra Iv/NS) 110 ml @ 440 mls/hr Q12 IVPB Last administered on 10/22/16 09:30; Admin Dose 440 MLS/HR; Start 10/10/16 at 14:00 Hydralazine HCl (Apresoline) 10 mg Q6H PRN IV ELEVATED BLOOD PRESSURE Last administered on 10/15/16 15:05; Admin Dose 10 MG; Start 10/10/16 at 19:00 Desmopressin Acetate (Ddavp) 0.2 mg TID PO Last administered on 10/22/16 09:41 ; Admin Dose 0.2 MG; Start 10/14/16 at 10:30 Atorvastatin Calcium (Lipitor) 40 mg QHS GTB Last administered on 10/21/16 21: 03; Admin Dose 40 MG; Start 10/15/16 at 21:00 Benazepril HCl (Lotensin) 10 mg DAILY GTB Last administered on 10/22/16 09:32 ; Admin Dose 10 MG; Start 10/15/16 at 12:00 Docusate Sodium (Colace Liquid Cup) 200 mg DAILY PRN GTB CONSTIPATION Last administered on 10/16/16 08:44; Admin Dose 200 MG; Start 10/15/16 at 12:00 Ferrous Sulfate (Feosol Liquid Cup) 330 mg DAILY GTB Last administered on 09:30; Admin Dose 330 MG; Start 10/16/16 at 09:00 Hydralazine HCl (Apresoline) 25 mg Q6H PRN GTB ELEVATED BLOOD PRESSURE; Start 10/15/16 at 12:00 Mineral Oil (Fleet Mineral Oil Enema) 133 ml DAILY PRN [place] CONSTIPATION Last administered on 10/16/16 03:54; Admin Dose 133 ML; Start 10/15/16 at 12:00 Multivitamins Therapeutic (Theragran) 1 tab DAILY PO Last administered on 09:32; Admin Dose 1 TAB; Start 10/15/16 at 12:00 Potassium Chloride (Potassium Chloride Pwd/Soln) 40 meq DAILY GTB Last administered on 10/22/16 09:32; Admin Dose 40 MEQ; Start 10/16/16 at 09:00 Miscellaneous Information 1 ea NOTE XX ; Start 10/15/16 at 21:30 Glucose (Glutose) 15 gm Q15M PRN PO DECREASED GLUCOSE; Start 10/15/16 at 21:30 Glucose (Glutose) 22.5 gm Q15M PRN PO DECREASED GLUCOSE; Start 10/15/16 at 21: 30 Dextrose (D50w Syringe) 25 ml Q15M PRN IV DECREASED GLUCOSE Last administered on 10/16/16 16:31; Admin Dose 25 ML; Start 10/15/16 at 21:30 Dextrose (D50w Syringe) 50 ml Q15M PRN IV DECREASED GLUCOSE; Start 10/15/16 at 21:30 Glucagon (Glucagen) 1 mg Q15M PRN IM DECREASED GLUCOSE; Start 10/15/16 at 21:30 Glucose (Glutose) 15 gm Q15M PRN BUCCAL DECREASED GLUCOSE; Start 10/15/16 at 21 :30 Metoclopramide HCl (Reglan) 10 mg Q6 IV Last administered on 10/22/16 05:28; Admin Dose 10 MG; Start 10/16/16 at 18:00 Lactobacillus Acidoph/Bulgaricus (Floranex) 2 tab BID PO Last administered on 09:32; Admin Dose 2 TAB; Start 10/16/16 at 21:00 Lactulose (Enulose) 30 gm BID GTB Last administered on 10/22/16 09:29; Admin Dose 30 GM; Start 10/16/16 at 21:00 Lansoprazole (Prevacid) 30 mg BID@18 GTB Last administered on 10/22/16 05: 28; Admin Dose 30 MG; Start 10/17/16 at 06:00 Carbidopa/Levodopa (Sinemet (25/ 100)) 1 tab TID GTB Last administered on 09:32; Admin Dose 1 TAB; Start 10/16/16 at 21:00 Lidocaine (Lidocaine 5% Oint) 1 applic TID TOP Last administered on 10/22/16 09:33; Admin Dose 1 APPLIC; Start 10/16/16 at 21:00 Metoprolol Tartrate (Lopressor) 12.5 mg BID GTB Last administered on 10/22/16 09:32; Admin Dose 12.5 MG; Start 10/16/16 at 21:00 Nystatin (Nystatin Susp) 5 ml QID PO Last administered on 10/22/16 09:30; Admin Dose 5 ML; Start 10/16/16 at 21:00 Insulin Aspart (Novolog Insulin Pen) NOVOLOG *MILD* ALGORI... Q4 SC Last administered on 10/21/16 04:15; Admin Dose 1 UNIT; Start 10/20/16 at 17:00 Insulin Glargine (Lantus) 24 unit DAILY@20 SC Last administered on 10/21/16 21 :11; Admin Dose 24 UNIT; Start 10/20/16 at 20:00 LISSA PARK MD Oct 22, 2016 10:38
--- NOTE | 2016-10-22 11:00 | CONS ---
Date/Time of Note Date/Time of Note DATE: 10/22/16 TIME: 10:58 Assessment/Plan Assessment/Plan Additional Assessment/Plan Critical settings; assist control of 14, tidal volume 500, PEEP of 5, 30% FiO2. Assessment and recommendations; 1. Patient admitted with sepsis from UTI with significant clinical improvement. 2. Chronic respiratory failure, ventilator dependent. History of anoxic encephalopathy. Status post intracranial bleed. 3. History of hypertension. 4. Diabetes insipidus. However patient's sodium has dropped to 130 today. 5. Stable seizure disorder. Continue current treatment. Hold further desmopressin dosing. Consultation Date/Type/Reason Admit Date/Time Oct 10, 2016 at 13:53 Initial Consult Date 10/10/16 Type of Consultation: Pulmonary Referring Provider: MADDY HOPKINS MD 24 HR Interval Summary Free Text/Dictation Patient condition is stable. Has remained hemodynamically stable. No seizure activity noted. General exam; young male, currently in no distress. On ventilator via tracheostomy. Patient remains unresponsive. Exam/Review of Systems Vital Signs Vitals Vital Signs Date Time Temp Pulse Resp B/P Pulse Ox O2 Delivery O2 Flow Rate FiO2 10/22/16 08:22 63 10/22/16 06:54 98.1 18 149/71 100 10/22/16 05:18 30 10/22/16 00:00 Mechanical Ventilator Intake and Output 10/21/16 10/21/16 10/22/16 15:00 23:00 07:00 Intake Total 110 ml 630 ml 580 ml Output Total 400 ml 450 ml Balance 110 ml 230 ml 130 ml Exam H EENT examination; supple neck, no JVD. No lymphadenopathy. Midline trachea. No thyromegaly. Tracheostomy in place with clean insertion site. Patient does have multiple well-healed frontal craniotomy scars. Next Chest examination; clear to auscultation. S1-S2 audible, no murmurs. Regular rhythm. Abdomen examination; soft, nondistended. G-tube in place. Bowel sounds audible. Extremity examination; no peripheral edema. OFFICE CLIN ASST examination; patient remains unresponsive. Results Result Diagram: 10/22/16 0625 10/22/16 0625 Results 24 hrs Laboratory Tests Test 10/21/16 11:34 10/21/16 13:33 10/21/16 17:09 10/21/16 21:00 Bedside Glucose 99 107 128 122 Test 10/22/16 00:43 10/22/16 05:25 10/22/16 06:25 10/22/16 09:34 Bedside Glucose 116 95 102 Anion Gap 10 Basophils # 0.1 Basophils % 1.1 Blood Urea Nitrogen 14 Calcium Level 7.7 L Carbon Dioxide Level 28 Chloride Level 96 L Creatinine 0.25 L Eosinophils # 0.1 Eosinophils % 1.6 Glucose Level 93 Hematocrit 28.7 L Hemoglobin 9.5 L Lymphocytes # 0.7 L Lymphocytes % 9.0 L Mean Corpuscular Hemoglobin 30.8 Mean Corpuscular Hemoglobin Concent 33.1 Mean Corpuscular Volume 93.2 Mean Platelet Volume 9.5 # Monocytes # 1.0 H Monocytes % 12.0 H Neutrophils # 6.1 Neutrophils % 75.1 Nucleated Red Blood Cells # 0.0 Nucleated Red Blood Cells % 0.0 Platelet Count 217 Potassium Level 4.1 Red Blood Count 3.08 L Red Cell Distribution Width 14.9 H Sodium Level 130 L White Blood Count 8.1 # Medications Medications Current Medications Ondansetron HCl (Zofran Inj) 4 mg Q6H PRN IV NAUSEA AND/OR VOMITING Last administered on 10/16/16 09:08; Admin Dose 4 MG; Start 10/10/16 at 14:00 Nitroglycerin (Nitroglycerin (Sl Tab) 0.4 Mg) 1 tab Q5M PRN SL CHEST PAIN; Start 10/10/16 at 14:00 Acetaminophen (Tylenol Supp) 650 mg Q4H PRN [place] PAIN LEVEL 1-3 OR FEVER Last administered on 10/16/16 22:11; Admin Dose 650 MG; Start 10/10/16 at 14:00 Morphine Sulfate (morphine) 2 mg Q4H PRN IV PAIN LEVEL 7-10; Start 10/10/16 at 14:00 Lorazepam (Ativan) 1 mg Q2H PRN IV ANXIETY Last administered on 10/15/16 20:27 ; Admin Dose 1 MG; Start 10/10/16 at 14:00 Docusate Sodium 100 mg 100 mg Q12H PRN PO CONSTIPATION; Start 10/10/16 at 14:00 Levetiracetam/ Sodium Chloride (Keppra Iv/NS) 110 ml @ 440 mls/hr Q12 IVPB Last administered on 10/22/16 09:30; Admin Dose 440 MLS/HR; Start 10/10/16 at 14:00 Hydralazine HCl (Apresoline) 10 mg Q6H PRN IV ELEVATED BLOOD PRESSURE Last administered on 10/15/16 15:05; Admin Dose 10 MG; Start 10/10/16 at 19:00 Desmopressin Acetate (Ddavp) 0.2 mg TID PO Last administered on 10/22/16 09:41 ; Admin Dose 0.2 MG; Start 10/14/16 at 10:30 Atorvastatin Calcium (Lipitor) 40 mg QHS GTB Last administered on 10/21/16 21: 03; Admin Dose 40 MG; Start 10/15/16 at 21:00 Benazepril HCl (Lotensin) 10 mg DAILY GTB Last administered on 10/22/16 09:32 ; Admin Dose 10 MG; Start 10/15/16 at 12:00 Docusate Sodium (Colace Liquid Cup) 200 mg DAILY PRN GTB CONSTIPATION Last administered on 10/16/16 08:44; Admin Dose 200 MG; Start 10/15/16 at 12:00 Ferrous Sulfate (Feosol Liquid Cup) 330 mg DAILY GTB Last administered on 09:30; Admin Dose 330 MG; Start 10/16/16 at 09:00 Hydralazine HCl (Apresoline) 25 mg Q6H PRN GTB ELEVATED BLOOD PRESSURE; Start 10/15/16 at 12:00 Mineral Oil (Fleet Mineral Oil Enema) 133 ml DAILY PRN [place] CONSTIPATION Last administered on 10/16/16 03:54; Admin Dose 133 ML; Start 10/15/16 at 12:00 Multivitamins Therapeutic (Theragran) 1 tab DAILY PO Last administered on 09:32; Admin Dose 1 TAB; Start 10/15/16 at 12:00 Potassium Chloride (Potassium Chloride Pwd/Soln) 40 meq DAILY GTB Last administered on 10/22/16 09:32; Admin Dose 40 MEQ; Start 10/16/16 at 09:00 Miscellaneous Information 1 ea NOTE XX ; Start 10/15/16 at 21:30 Glucose (Glutose) 15 gm Q15M PRN PO DECREASED GLUCOSE; Start 10/15/16 at 21:30 Glucose (Glutose) 22.5 gm Q15M PRN PO DECREASED GLUCOSE; Start 10/15/16 at 21: 30 Dextrose (D50w Syringe) 25 ml Q15M PRN IV DECREASED GLUCOSE Last administered on 10/16/16 16:31; Admin Dose 25 ML; Start 10/15/16 at 21:30 Dextrose (D50w Syringe) 50 ml Q15M PRN IV DECREASED GLUCOSE; Start 10/15/16 at 21:30 Glucagon (Glucagen) 1 mg Q15M PRN IM DECREASED GLUCOSE; Start 10/15/16 at 21:30 Glucose (Glutose) 15 gm Q15M PRN BUCCAL DECREASED GLUCOSE; Start 10/15/16 at 21 :30 Metoclopramide HCl (Reglan) 10 mg Q6 IV Last administered on 10/22/16 05:28; Admin Dose 10 MG; Start 10/16/16 at 18:00 Lactobacillus Acidoph/Bulgaricus (Floranex) 2 tab BID PO Last administered on 09:32; Admin Dose 2 TAB; Start 10/16/16 at 21:00 Lactulose (Enulose) 30 gm BID GTB Last administered on 10/22/16 09:29; Admin Dose 30 GM; Start 10/16/16 at 21:00 Lansoprazole (Prevacid) 30 mg BID@18 GTB Last administered on 10/22/16 05: 28; Admin Dose 30 MG; Start 10/17/16 at 06:00 Carbidopa/Levodopa (Sinemet (25/ 100)) 1 tab TID GTB Last administered on 09:32; Admin Dose 1 TAB; Start 10/16/16 at 21:00 Lidocaine (Lidocaine 5% Oint) 1 applic TID TOP Last administered on 10/22/16 09:33; Admin Dose 1 APPLIC; Start 10/16/16 at 21:00 Metoprolol Tartrate (Lopressor) 12.5 mg BID GTB Last administered on 10/22/16 09:32; Admin Dose 12.5 MG; Start 10/16/16 at 21:00 Nystatin (Nystatin Susp) 5 ml QID PO Last administered on 10/22/16 09:30; Admin Dose 5 ML; Start 10/16/16 at 21:00 Insulin Aspart (Novolog Insulin Pen) NOVOLOG *MILD* ALGORI... Q4 SC Last administered on 10/21/16 04:15; Admin Dose 1 UNIT; Start 10/20/16 at 17:00 Insulin Glargine (Lantus) 24 unit DAILY@20 SC Last administered on 10/21/16 21 :11; Admin Dose 24 UNIT; Start 10/20/16 at 20:00 Tolvaptan (Samsca) 15 mg ONCE ONCE PO ; Start 10/22/16 at 11:00; Stop 10/22/16 at 11:01; Status JUANA PETERSON Oct 22, 2016 11:00
[2016-10-22] MEDS ORDERED: TOLVAPTAN 15 MG TABLET PO ONE (11:30)
[2016-10-22 12:04] LABS: SODIUM 130 mmol/L (135-144)
[2016-10-22 12:07] LABS: ALANINE AMINOTRANSFERASE 30 IU/L (13-69); ASPARTATE AMINO TRANSFERASE 43 IU/L (15-46)
--- NOTE | 2016-10-22 13:00 | PN ---
Date/Time of Note Date/Time of Note DATE: 10/22/16 TIME: 12:58 Assessment/Plan VTE Prophylaxis VTE Prophylaxis Intervention: SCD's Lines/Catheters IV Catheter Type (from Nrs): Saline Lock Urinary Cath still in place: Yes Assessment/Plan Assessment/Plan - Leukocytosis, s/p emesis, continue empiric abx for possible aspiration. - Sepsis secondary to urinary tract infection and healthcare-acquired pneumonia. Patient is followed by Dr. Sales in infectious disease consultation. Continue antibiotics per ID. - Ventilator dependent respiratory failure. Dr. Unger is following from pulmonology standpoint. Continue bronchodilators and ventilatory support. 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 - Seizure disorder. Continue Keppra. - Hypertension, continue benazepril and hydralazine. - Hyponatremia, improved on DDAVP. Patient is followed by Dr. Tovar in nephrology consultation. - History of cerebrovascular accident. Continue sequential compression device for deep venous thrombosis prophylaxis and Pepcid for peptic ulcer disease prophylaxis. Subjective 24 Hr Interval Summary Free Text/Dictation Nad, seems comfortable, at bed side. no new issues reported by staff. dw staff. Subjective hx not possible: pt non-verbal Constitutional: requiring IVF, requiring O2 Exam/Review of Systems Vital Signs Vitals Vital Signs Date Time Temp Pulse Resp B/P Pulse Ox O2 Delivery O2 Flow Rate FiO2 10/22/16 12:14 61 10/22/16 11:23 98.2 18 149/73 94 10/22/16 11:08 30 10/22/16 00:00 Mechanical Ventilator Intake and Output 10/21/16 10/21/16 10/22/16 15:00 23:00 07:00 Intake Total 110 ml 630 ml 580 ml Output Total 400 ml 450 ml Balance 110 ml 230 ml 130 ml Exam Constitutional: non-verbal Psych: confusion, nl mood/affect Eyes: nl sclera ENMT: nl external ears & nose Neck: non-tender Respiratory: diminished breath sounds Cardiovascular: nl pulses Gastrointestinal: non-tender, soft Musculoskeletal: muscle weakness Extremities: normal pulses Neurological: lethargic Lymph: nontender Results Result Diagram: 10/22/16 0625 10/22/16 1130 Results 24 hrs Laboratory Tests Test 10/21/16 13:33 10/21/16 17:09 10/21/16 21:00 10/22/16 00:43 Bedside Glucose 107 128 122 116 Test 10/22/16 05:25 10/22/16 06:25 10/22/16 09:34 10/22/16 11:30 Bedside Glucose 95 102 Anion Gap 10 Basophils # 0.1 Basophils % 1.1 Blood Urea Nitrogen 14 Calcium Level 7.7 L Carbon Dioxide Level 28 Chloride Level 96 L Creatinine 0.25 L Eosinophils # 0.1 Eosinophils % 1.6 Glucose Level 93 Hematocrit 28.7 L Hemoglobin 9.5 L Lymphocytes # 0.7 L Lymphocytes % 9.0 L Mean Corpuscular Hemoglobin 30.8 Mean Corpuscular Hemoglobin Concent 33.1 Mean Corpuscular Volume 93.2 Mean Platelet Volume 9.5 # Monocytes # 1.0 H Monocytes % 12.0 H Neutrophils # 6.1 Neutrophils % 75.1 Nucleated Red Blood Cells # 0.0 Nucleated Red Blood Cells % 0.0 Platelet Count 217 Potassium Level 4.1 Red Blood Count 3.08 L Red Cell Distribution Width 14.9 H Sodium Level 130 L 130 L White Blood Count 8.1 # Alanine Aminotransferase (ALT/SGPT) 30 Aspartate Amino Transf (AST/SGOT) 43 Medications Medications Current Medications Ondansetron HCl (Zofran Inj) 4 mg Q6H PRN IV NAUSEA AND/OR VOMITING Last administered on 10/16/16 09:08; Admin Dose 4 MG; Start 10/10/16 at 14:00 Nitroglycerin (Nitroglycerin (Sl Tab) 0.4 Mg) 1 tab Q5M PRN SL CHEST PAIN; Start 10/10/16 at 14:00 Acetaminophen (Tylenol Supp) 650 mg Q4H PRN [place] PAIN LEVEL 1-3 OR FEVER Last administered on 10/16/16 22:11; Admin Dose 650 MG; Start 10/10/16 at 14:00 Morphine Sulfate (morphine) 2 mg Q4H PRN IV PAIN LEVEL 7-10; Start 10/10/16 at 14:00 Lorazepam (Ativan) 1 mg Q2H PRN IV ANXIETY Last administered on 10/15/16 20:27 ; Admin Dose 1 MG; Start 10/10/16 at 14:00 Docusate Sodium 100 mg 100 mg Q12H PRN PO CONSTIPATION; Start 10/10/16 at 14:00 Levetiracetam/ Sodium Chloride (Keppra Iv/NS) 110 ml @ 440 mls/hr Q12 IVPB Last administered on 10/22/16 09:30; Admin Dose 440 MLS/HR; Start 10/10/16 at 14:00 Hydralazine HCl (Apresoline) 10 mg Q6H PRN IV ELEVATED BLOOD PRESSURE Last administered on 10/15/16 15:05; Admin Dose 10 MG; Start 10/10/16 at 19:00 Atorvastatin Calcium (Lipitor) 40 mg QHS GTB Last administered on 10/21/16 21: 03; Admin Dose 40 MG; Start 10/15/16 at 21:00 Benazepril HCl (Lotensin) 10 mg DAILY GTB Last administered on 10/22/16 09:32 ; Admin Dose 10 MG; Start 10/15/16 at 12:00 Docusate Sodium (Colace Liquid Cup) 200 mg DAILY PRN GTB CONSTIPATION Last administered on 10/16/16 08:44; Admin Dose 200 MG; Start 10/15/16 at 12:00 Ferrous Sulfate (Feosol Liquid Cup) 330 mg DAILY GTB Last administered on 09:30; Admin Dose 330 MG; Start 10/16/16 at 09:00 Hydralazine HCl (Apresoline) 25 mg Q6H PRN GTB ELEVATED BLOOD PRESSURE; Start 10/15/16 at 12:00 Mineral Oil (Fleet Mineral Oil Enema) 133 ml DAILY PRN [place] CONSTIPATION Last administered on 10/16/16 03:54; Admin Dose 133 ML; Start 10/15/16 at 12:00 Multivitamins Therapeutic (Theragran) 1 tab DAILY PO Last administered on 09:32; Admin Dose 1 TAB; Start 10/15/16 at 12:00 Potassium Chloride (Potassium Chloride Pwd/Soln) 40 meq DAILY GTB Last administered on 10/22/16 09:32; Admin Dose 40 MEQ; Start 10/16/16 at 09:00 Miscellaneous Information 1 ea NOTE XX ; Start 10/15/16 at 21:30 Glucose (Glutose) 15 gm Q15M PRN PO DECREASED GLUCOSE; Start 10/15/16 at 21:30 Glucose (Glutose) 22.5 gm Q15M PRN PO DECREASED GLUCOSE; Start 10/15/16 at 21: 30 Dextrose (D50w Syringe) 25 ml Q15M PRN IV DECREASED GLUCOSE Last administered on 10/16/16 16:31; Admin Dose 25 ML; Start 10/15/16 at 21:30 Dextrose (D50w Syringe) 50 ml Q15M PRN IV DECREASED GLUCOSE; Start 10/15/16 at 21:30 Glucagon (Glucagen) 1 mg Q15M PRN IM DECREASED GLUCOSE; Start 10/15/16 at 21:30 Glucose (Glutose) 15 gm Q15M PRN BUCCAL DECREASED GLUCOSE; Start 10/15/16 at 21 :30 Metoclopramide HCl (Reglan) 10 mg Q6 IV Last administered on 10/22/16 05:28; Admin Dose 10 MG; Start 10/16/16 at 18:00 Lactobacillus Acidoph/Bulgaricus (Floranex) 2 tab BID PO Last administered on 09:32; Admin Dose 2 TAB; Start 10/16/16 at 21:00 Lactulose (Enulose) 30 gm BID GTB Last administered on 10/22/16 09:29; Admin Dose 30 GM; Start 10/16/16 at 21:00 Lansoprazole (Prevacid) 30 mg BID@18 GTB Last administered on 10/22/16 05: 28; Admin Dose 30 MG; Start 10/17/16 at 06:00 Carbidopa/Levodopa (Sinemet (25/ 100)) 1 tab TID GTB Last administered on 09:32; Admin Dose 1 TAB; Start 10/16/16 at 21:00 Lidocaine (Lidocaine 5% Oint) 1 applic TID TOP Last administered on 10/22/16 09:33; Admin Dose 1 APPLIC; Start 10/16/16 at 21:00 Metoprolol Tartrate (Lopressor) 12.5 mg BID GTB Last administered on 10/22/16 09:32; Admin Dose 12.5 MG; Start 10/16/16 at 21:00 Nystatin (Nystatin Susp) 5 ml QID PO Last administered on 10/22/16 09:30; Admin Dose 5 ML; Start 10/16/16 at 21:00 Insulin Aspart (Novolog Insulin Pen) NOVOLOG *MILD* ALGORI... Q4 SC Last administered on 10/21/16 04:15; Admin Dose 1 UNIT; Start 10/20/16 at 17:00 Insulin Glargine (Lantus) 24 unit DAILY@20 SC Last administered on 10/21/16 21 :11; Admin Dose 24 UNIT; Start 10/20/16 at 20:00 KENYATTA CAPPS Oct 22, 2016 13:00
[2016-10-22] MEDS: INSULIN GLARGINE [LANtus] 3 ML PEN SC SCH (20:54)
[2016-10-22] MEDS: ATORVASTATIN 40 MG TAB GTB SCH (20:55)
[2016-10-23] VITALS (23 sets, daily range): BP systolic 125–153; BP diastolic 72–88; PULSE 75–93; RESP 14–20
[2016-10-23] MEDS: INSULIN ASPART [NOVOLOG] 3 ML PEN SC SCH ×6 (00:42→21:00)
[2016-10-23] MEDS: METOCLOPRAMIDE 10 MG INJ IV SCH ×4 (00:43→18:33)
[2016-10-23] MEDS: LANSOPRAZOLE 30 MG CAP GTB SCH ×2 (05:20→18:33)
[2016-10-23] MEDS: LIDOCAINE 5% 35 GM OINT TOP SCH ×3 (09:00→21:21)
[2016-10-23] MEDS: LACTULOSE 30ML CUP GTB SCH ×2 (10:27→21:20)
[2016-10-23] MEDS: NYSTATIN SUSP 5 ML CUP PO SCH ×4 (10:28→21:21)
[2016-10-23] MEDS: LEVETIRACETAM IV 1,000 MG in SOD CHLORIDE 0.9% 100 ML IVPB SCH ×2 (10:28→21:21)
[2016-10-23] MEDS: FERROUS SULFATE 60 MG/ML 5ML CUP GTB SCH (10:28)
[2016-10-23] MEDS: CARBIDOPA/LEVODOPA (25/100) TAB GTB SCH ×3 (10:28→21:20)
[2016-10-23] MEDS: POTASSIUM CHLORIDE 20 MEQ POWDER FOR ORAL SOLN GTB SCH (10:28)
[2016-10-23] MEDS: LACTOBACILLUS CHEW TAB PO SCH ×2 (10:28→21:20)
[2016-10-23] MEDS: MULTIVITAMINS THERAPEUTIC TAB PO SCH (10:29)
[2016-10-23] MEDS: METOPROLOL 25 MG TAB GTB SCH ×2 (10:29→21:22)
[2016-10-23] MEDS: BENAZEPRIL 10 MG TAB GTB SCH (10:29)
--- NOTE | 2016-10-23 12:27 | CONS ---
Date/Time of Note Date/Time of Note DATE: 10/23/16 TIME: 12:24 Assessment/Plan Assessment/Plan Additional Assessment/Plan 1. Severe hyponatremia with a sodium of 119, possibly acute on chronic hyponatremia versus acute severe hyponatremia.- pt went from hyponatremia to hypernatremia with treatment with 3% saline and one dose of tolvaptan - then Improved to normal today wtih D5W IVF and DDAVP 0.2mg PO x2 dose 10/15/16- on again Na dropped to 119 s/p Tovlaptan 15 mg PO x1 on 10/18/16-now Na 143 2. Seizures secondary to severe hyponatremia. 3. Sepsis secondary to bilateral pneumonia. 4. Ventilator-dependent respiratory failure, status post tracheostomy, on vent. 5. History of a previous brain tumor, had surgery. Currently, status post ventriculoperitoneal shunt in place. 6. History of a previous cerebellar cerebrovascular accident. PLAN: pt received 3 % saline and tolvaptan one dose on 10/10 and 10/11- went into polyuria, Na went from hyponatremia to hypernatremia- now improved to normal with D5W IVF and 2 dose of DDAVP 0.2mg- again today 10/16- na dropped from 140 to 122- given 3% hypertonic saline for another 12 hr - did not respond well, Na again dropped to 119- One dose of tolvaptan 15 mg X 1 10/18/16- Na dropped to 130 10/22/2016- tolvaptan 15 gram po x 1 dose on 09/21/16- now Na 143 onTube feeding with diabeto source will start Demeclocycline 300mg BID to avoid use of tolvaptan monitor Na, pt has acute on chronic hyponatremia ventilator care as per pulmonary will follow up Consultation Date/Type/Reason Admit Date/Time Oct 10, 2016 at 13:53 Initial Consult Date 10/10/16 Type of Consultation: NEPHROLOGY Reason for Consultation Hyponatremia severe Referring Provider: MADDY HOPKINS MD 24 HR Interval Summary Free Text/Dictation Na 143., pt received one dose of tolvaptan 15mg pO x 1 Exam/Review of Systems Vital Signs Vitals Vital Signs Date Time Temp Pulse Resp B/P Pulse Ox O2 Delivery O2 Flow Rate FiO2 10/23/16 12:16 75 10/23/16 11:31 14 100 30 10/23/16 08:03 97.8 146/85 10/22/16 00:00 Mechanical Ventilator Intake and Output 10/22/16 10/22/16 10/23/16 15:00 23:00 07:00 Intake Total 630 ml 740 ml Output Total 2200 ml 4000 ml Balance -1570 ml -3260 ml Exam HEENT: Tracheostomy site is clear. LUNGS: Bilateral coarse breath sounds with bilateral basilar rales present and lower lobe rhonchi present. HEART: S1, S2, tachycardia, no murmur. ABDOMEN: Soft. G-tube in place. EXTREMITIES: No clubbing, cyanosis, or edema. The patient is very debilitated. PSYCHIATRIC: Not able to assess. NEUROLOGICAL: Not able to assess. , + steve catheter in place Results Result Diagram: 10/22/16 0625 10/23/16 0230 Results 24 hrs Laboratory Tests Test 10/22/16 15:05 10/22/16 17:01 10/22/16 20:04 10/22/16 20:52 Bedside Glucose 109 102 123 Sodium Level 139 Test 10/23/16 00:41 10/23/16 02:30 10/23/16 05:22 10/23/16 08:00 Bedside Glucose 111 109 97 Sodium Level 143 Medications Medications Current Medications Ondansetron HCl (Zofran Inj) 4 mg Q6H PRN IV NAUSEA AND/OR VOMITING Last administered on 10/16/16 09:08; Admin Dose 4 MG; Start 10/10/16 at 14:00 Nitroglycerin (Nitroglycerin (Sl Tab) 0.4 Mg) 1 tab Q5M PRN SL CHEST PAIN; Start 10/10/16 at 14:00 Acetaminophen (Tylenol Supp) 650 mg Q4H PRN [place] PAIN LEVEL 1-3 OR FEVER Last administered on 10/16/16 22:11; Admin Dose 650 MG; Start 10/10/16 at 14:00 Morphine Sulfate (morphine) 2 mg Q4H PRN IV PAIN LEVEL 7-10; Start 10/10/16 at 14:00 Lorazepam (Ativan) 1 mg Q2H PRN IV ANXIETY Last administered on 10/15/16 20:27 ; Admin Dose 1 MG; Start 10/10/16 at 14:00 Docusate Sodium 100 mg 100 mg Q12H PRN PO CONSTIPATION; Start 10/10/16 at 14:00 Levetiracetam/ Sodium Chloride (Keppra Iv/NS) 110 ml @ 440 mls/hr Q12 IVPB Last administered on 10/23/16 10:28; Admin Dose 440 MLS/HR; Start 10/10/16 at 14:00 Hydralazine HCl (Apresoline) 10 mg Q6H PRN IV ELEVATED BLOOD PRESSURE Last administered on 10/15/16 15:05; Admin Dose 10 MG; Start 10/10/16 at 19:00 Atorvastatin Calcium (Lipitor) 40 mg QHS GTB Last administered on 10/22/16 20: 55; Admin Dose 40 MG; Start 10/15/16 at 21:00 Benazepril HCl (Lotensin) 10 mg DAILY GTB Last administered on 10/23/16 10:29 ; Admin Dose 10 MG; Start 10/15/16 at 12:00 Docusate Sodium (Colace Liquid Cup) 200 mg DAILY PRN GTB CONSTIPATION Last administered on 10/16/16 08:44; Admin Dose 200 MG; Start 10/15/16 at 12:00 Ferrous Sulfate (Feosol Liquid Cup) 330 mg DAILY GTB Last administered on 10:28; Admin Dose 330 MG; Start 10/16/16 at 09:00 Hydralazine HCl (Apresoline) 25 mg Q6H PRN GTB ELEVATED BLOOD PRESSURE; Start 10/15/16 at 12:00 Mineral Oil (Fleet Mineral Oil Enema) 133 ml DAILY PRN [place] CONSTIPATION Last administered on 10/16/16 03:54; Admin Dose 133 ML; Start 10/15/16 at 12:00 Multivitamins Therapeutic (Theragran) 1 tab DAILY PO Last administered on 10:29; Admin Dose 1 TAB; Start 10/15/16 at 12:00 Potassium Chloride (Potassium Chloride Pwd/Soln) 40 meq DAILY GTB Last administered on 10/23/16 10:28; Admin Dose 40 MEQ; Start 10/16/16 at 09:00 Miscellaneous Information 1 ea NOTE XX ; Start 10/15/16 at 21:30 Glucose (Glutose) 15 gm Q15M PRN PO DECREASED GLUCOSE; Start 10/15/16 at 21:30 Glucose (Glutose) 22.5 gm Q15M PRN PO DECREASED GLUCOSE; Start 10/15/16 at 21: 30 Dextrose (D50w Syringe) 25 ml Q15M PRN IV DECREASED GLUCOSE Last administered on 10/16/16 16:31; Admin Dose 25 ML; Start 10/15/16 at 21:30 Dextrose (D50w Syringe) 50 ml Q15M PRN IV DECREASED GLUCOSE; Start 10/15/16 at 21:30 Glucagon (Glucagen) 1 mg Q15M PRN IM DECREASED GLUCOSE; Start 10/15/16 at 21:30 Glucose (Glutose) 15 gm Q15M PRN BUCCAL DECREASED GLUCOSE; Start 10/15/16 at 21 :30 Metoclopramide HCl (Reglan) 10 mg Q6 IV Last administered on 10/23/16 05:20; Admin Dose 10 MG; Start 10/16/16 at 18:00 Lactobacillus Acidoph/Bulgaricus (Floranex) 2 tab BID PO Last administered on 10:28; Admin Dose 2 TAB; Start 10/16/16 at 21:00 Lactulose (Enulose) 30 gm BID GTB Last administered on 10/23/16 10:27; Admin Dose 30 GM; Start 10/16/16 at 21:00 Lansoprazole (Prevacid) 30 mg BID@,18 GTB Last administered on 10/23/16 05: 20; Admin Dose 30 MG; Start 10/17/16 at 06:00 Carbidopa/Levodopa (Sinemet (25/ 100)) 1 tab TID GTB Last administered on 10:28; Admin Dose 1 TAB; Start 10/16/16 at 21:00 Lidocaine (Lidocaine 5% Oint) 1 applic TID TOP Last administered on 10/23/16 09:00; Admin Dose 1 APPLIC; Start 10/16/16 at 21:00 Metoprolol Tartrate (Lopressor) 12.5 mg BID GTB Last administered on 10/23/16 10:29; Admin Dose 12.5 MG; Start 10/16/16 at 21:00 Nystatin (Nystatin Susp) 5 ml QID PO Last administered on 10/23/16 10:28; Admin Dose 5 ML; Start 10/16/16 at 21:00 Insulin Aspart (Novolog Insulin Pen) NOVOLOG *MILD* ALGORI... Q4 SC Last administered on 10/21/16 04:15; Admin Dose 1 UNIT; Start 10/20/16 at 17:00 Insulin Glargine (Lantus) 24 unit DAILY@20 SC Last administered on 10/22/16 20 :54; Admin Dose 24 UNIT; Start 10/20/16 at 20:00 Demeclocycline HCl (Declomycin) 300 mg BID GTB ; Start 10/23/16 at 21:00; Status UNV LISSA PARK MD Oct 23, 2016 12:27
--- NOTE | 2016-10-23 13:40 | CONS ---
Date/Time of Note Date/Time of Note DATE: 10/23/16 TIME: 13:37 Assessment/Plan Assessment/Plan Additional Assessment/Plan Ventilator settings; AC of 14, tidal volume 500, PEEP of 5, 30% FiO2. Assessment and recommendations; 1. Patient admitted with UTI and sepsis with interval resolution. Off antibiotics. 2. Chronic respiratory failure, ventilator dependent due to severe anoxic brain injury. Status post craniotomy. 3. Hyponatremia patient responded well to desmopressin however sodium level has dropped and the patient now has been taken off vasopressin. 4. Stable seizure disorder. 5. Stable hypertension. Continue current treatment. Patient awaiting transfer to rehab center. Pulses remains poor. Consultation Date/Type/Reason Admit Date/Time Oct 10, 2016 at 13:53 Initial Consult Date 10/10/16 Type of Consultation: Pulmonary Referring Provider: MADDY HOPKINS MD 24 HR Interval Summary Free Text/Dictation Patient's condition remains stable. Has remained hemodynamically stable. No seizure activity noted. Because of severe anoxic encephalopathy patient remains unresponsive. General examination; middle-aged man, on ventilator via tracheostomy currently in no distress. Unresponsive. Exam/Review of Systems Vital Signs Vitals Vital Signs Date Time Temp Pulse Resp B/P Pulse Ox O2 Delivery O2 Flow Rate FiO2 10/23/16 13:21 67 14 100 30 10/23/16 12:38 97.8 126/76 10/22/16 00:00 Mechanical Ventilator Intake and Output 10/22/16 10/22/16 10/23/16 15:00 23:00 07:00 Intake Total 630 ml 740 ml Output Total 2200 ml 4000 ml Balance -1570 ml -3260 ml Exam H EENT examination; supple neck, no JVD. No lymphadenopathy. Midline trachea. Tracheostomy in place with clean insertion site. There is a well-healed frontal craniotomy scar present. Pupils are midsize bilaterally. Chest examination; clear to auscultation bilaterally. S1-S2 audible, no murmurs. Regular rhythm. Abdomen examination; soft, nondistended. No organomegaly. G-tube in place. Bowel sounds audible. Extremity examination; no peripheral edema. [employer] examination; patient remains unresponsive. Results Result Diagram: 10/22/16 0625 10/23/16 0230 Results 24 hrs Laboratory Tests Test 10/22/16 15:05 10/22/16 17:01 10/22/16 20:04 10/22/16 20:52 Bedside Glucose 109 102 123 Sodium Level 139 Test 10/23/16 00:41 10/23/16 02:30 10/23/16 05:22 10/23/16 08:00 Bedside Glucose 111 109 97 Sodium Level 143 Medications Medications Current Medications Ondansetron HCl (Zofran Inj) 4 mg Q6H PRN IV NAUSEA AND/OR VOMITING Last administered on 10/16/16 09:08; Admin Dose 4 MG; Start 10/10/16 at 14:00 Nitroglycerin (Nitroglycerin (Sl Tab) 0.4 Mg) 1 tab Q5M PRN SL CHEST PAIN; Start 10/10/16 at 14:00 Acetaminophen (Tylenol Supp) 650 mg Q4H PRN [place] PAIN LEVEL 1-3 OR FEVER Last administered on 10/16/16 22:11; Admin Dose 650 MG; Start 10/10/16 at 14:00 Morphine Sulfate (morphine) 2 mg Q4H PRN IV PAIN LEVEL 7-10; Start 10/10/16 at 14:00 Lorazepam (Ativan) 1 mg Q2H PRN IV ANXIETY Last administered on 10/15/16 20:27 ; Admin Dose 1 MG; Start 10/10/16 at 14:00 Docusate Sodium 100 mg 100 mg Q12H PRN PO CONSTIPATION; Start 10/10/16 at 14:00 Levetiracetam/ Sodium Chloride (Keppra Iv/NS) 110 ml @ 440 mls/hr Q12 IVPB Last administered on 10/23/16 10:28; Admin Dose 440 MLS/HR; Start 10/10/16 at 14:00 Hydralazine HCl (Apresoline) 10 mg Q6H PRN IV ELEVATED BLOOD PRESSURE Last administered on 10/15/16 15:05; Admin Dose 10 MG; Start 10/10/16 at 19:00 Atorvastatin Calcium (Lipitor) 40 mg QHS GTB Last administered on 10/22/16 20: 55; Admin Dose 40 MG; Start 10/15/16 at 21:00 Benazepril HCl (Lotensin) 10 mg DAILY GTB Last administered on 10/23/16 10:29 ; Admin Dose 10 MG; Start 10/15/16 at 12:00 Docusate Sodium (Colace Liquid Cup) 200 mg DAILY PRN GTB CONSTIPATION Last administered on 10/16/16 08:44; Admin Dose 200 MG; Start 10/15/16 at 12:00 Ferrous Sulfate (Feosol Liquid Cup) 330 mg DAILY GTB Last administered on 10:28; Admin Dose 330 MG; Start 10/16/16 at 09:00 Hydralazine HCl (Apresoline) 25 mg Q6H PRN GTB ELEVATED BLOOD PRESSURE; Start 10/15/16 at 12:00 Mineral Oil (Fleet Mineral Oil Enema) 133 ml DAILY PRN [place] CONSTIPATION Last administered on 10/16/16 03:54; Admin Dose 133 ML; Start 10/15/16 at 12:00 Multivitamins Therapeutic (Theragran) 1 tab DAILY PO Last administered on 10:29; Admin Dose 1 TAB; Start 10/15/16 at 12:00 Potassium Chloride (Potassium Chloride Pwd/Soln) 40 meq DAILY GTB Last administered on 10/23/16 10:28; Admin Dose 40 MEQ; Start 10/16/16 at 09:00 Miscellaneous Information 1 ea NOTE XX ; Start 10/15/16 at 21:30 Glucose (Glutose) 15 gm Q15M PRN PO DECREASED GLUCOSE; Start 10/15/16 at 21:30 Glucose (Glutose) 22.5 gm Q15M PRN PO DECREASED GLUCOSE; Start 10/15/16 at 21: 30 Dextrose (D50w Syringe) 25 ml Q15M PRN IV DECREASED GLUCOSE Last administered on 10/16/16 16:31; Admin Dose 25 ML; Start 10/15/16 at 21:30 Dextrose (D50w Syringe) 50 ml Q15M PRN IV DECREASED GLUCOSE; Start 10/15/16 at 21:30 Glucagon (Glucagen) 1 mg Q15M PRN IM DECREASED GLUCOSE; Start 10/15/16 at 21:30 Glucose (Glutose) 15 gm Q15M PRN BUCCAL DECREASED GLUCOSE; Start 10/15/16 at 21 :30 Metoclopramide HCl (Reglan) 10 mg Q6 IV Last administered on 10/23/16 05:20; Admin Dose 10 MG; Start 10/16/16 at 18:00 Lactobacillus Acidoph/Bulgaricus (Floranex) 2 tab BID PO Last administered on 10:28; Admin Dose 2 TAB; Start 10/16/16 at 21:00 Lactulose (Enulose) 30 gm BID GTB Last administered on 10/23/16 10:27; Admin Dose 30 GM; Start 10/16/16 at 21:00 Lansoprazole (Prevacid) 30 mg BID@,18 GTB Last administered on 10/23/16 05: 20; Admin Dose 30 MG; Start 10/17/16 at 06:00 Carbidopa/Levodopa (Sinemet (25/ 100)) 1 tab TID GTB Last administered on 10:28; Admin Dose 1 TAB; Start 10/16/16 at 21:00 Lidocaine (Lidocaine 5% Oint) 1 applic TID TOP Last administered on 10/23/16 09:00; Admin Dose 1 APPLIC; Start 10/16/16 at 21:00 Metoprolol Tartrate (Lopressor) 12.5 mg BID GTB Last administered on 10/23/16 10:29; Admin Dose 12.5 MG; Start 10/16/16 at 21:00 Nystatin (Nystatin Susp) 5 ml QID PO Last administered on 10/23/16 10:28; Admin Dose 5 ML; Start 10/16/16 at 21:00 Insulin Aspart (Novolog Insulin Pen) NOVOLOG *MILD* ALGORI... Q4 SC Last administered on 10/21/16 04:15; Admin Dose 1 UNIT; Start 10/20/16 at 17:00 Insulin Glargine (Lantus) 24 unit DAILY@20 SC Last administered on 10/22/16 20 :54; Admin Dose 24 UNIT; Start 10/20/16 at 20:00 Demeclocycline HCl (Declomycin) 300 mg BID GTB ; Start 10/23/16 at 21:00 JUANA DE LEÓN Oct 23, 2016 13:40
--- NOTE | 2016-10-23 14:30 | PN ---
Date/Time of Note Date/Time of Note DATE: 10/23/16 TIME: 14:25 Assessment/Plan VTE Prophylaxis VTE Prophylaxis Intervention: SCD's Lines/Catheters IV C[facility]ter Type (from [facility] Saline Lock Urinary Cath still in place: Yes Reason Cath still needed: urinary retention Assessment/Plan Chief Complaint/Hosp Course ASSESSMENT AND PLAN: - Leukocytosis, s/p emesis, continue empiric abx for possible aspiration. Dr. Trevino is asked to see patient in gastroenterology consultation. - Sepsis secondary to urinary tract infection and healthcare-acquired pneumonia. Patient is followed by Dr. Sales in infectious disease consultation. Continue antibiotics per ID. - Ventilator dependent respiratory failure. Dr. Unger is following from pulmonology standpoint. Continue bronchodilators and ventilatory support. 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 - Seizure disorder. Continue Keppra. - Hypertension, continue benazepril and hydralazine. - Hyponatremia 2 SIADH. Patient is followed by Dr. Tovar in nephrology consultation. - History of cerebrovascular accident. Continue sequential compression device for deep venous thrombosis prophylaxis and Pepcid for peptic ulcer disease prophylaxis. Patient's condition and plan of care discussed with patient's daughter at the bedside. All questions answered, including MRI results. Further recommendations based on clinical course. Plan of care discussed with Dr. Desir. Problems: Subjective 24 Hr Interval Summary Free Text/Dictation Patient had a nonbloody emesis, G-tube feeding is on hold right now, will monitor chest x-ray, continue aspiration precaution. Exam/Review of Systems Vital Signs Vitals Vital Signs Date Time Temp Pulse Resp B/P Pulse Ox O2 Delivery O2 Flow Rate FiO2 10/23/16 13:21 67 14 100 30 10/23/16 12:38 97.8 126/76 10/22/16 00:00 Mechanical Ventilator Intake and Output 10/22/16 10/22/16 10/23/16 15:00 23:00 07:00 Intake Total 630 ml 740 ml Output Total 2200 ml 4000 ml Balance -1570 ml -3260 ml Exam GENERAL: This is a well-developed male on ventilator support, does not respond to verbal internal stimuli. HEENT: Head is atraumatic, normocephalic. Pupils equal, round, reactive to light and accommodation. NECK: Supple. Tracheostomy at the base of the neck. CHEST: Scattered rhonchi bilaterally, slightly diminished at the bases. No wheezes noted. HEART: Normal S1, S2. No murmurs, gallops, clicks, rubs noted. ABDOMEN: Protuberant, soft, nondistended, nontender. Bowel sounds present. EXTREMITIES: Mild edema. There is no clubbing or cyanosis. Pulses equal bilaterally 2+. SKIN: There is no rash, petechiae noted. NEUROLOGIC: The patient is obtunded. Results Result Diagram: 10/22/16 0625 10/23/16 0230 Results 24 hrs Laboratory Tests Test 10/22/16 15:05 10/22/16 17:01 10/22/16 20:04 10/22/16 20:52 Bedside Glucose 109 102 123 Sodium Level 139 Test 10/23/16 00:41 10/23/16 02:30 10/23/16 05:22 10/23/16 08:00 Bedside Glucose 111 109 97 Sodium Level 143 Medications Medications Current Medications Ondansetron HCl (Zofran Inj) 4 mg Q6H PRN IV NAUSEA AND/OR VOMITING Last administered on 10/16/16 09:08; Admin Dose 4 MG; Start 10/10/16 at 14:00 Nitroglycerin (Nitroglycerin (Sl Tab) 0.4 Mg) 1 tab Q5M PRN SL CHEST PAIN; Start 10/10/16 at 14:00 Acetaminophen (Tylenol Supp) 650 mg Q4H PRN [place] PAIN LEVEL 1-3 OR FEVER Last administered on 10/16/16 22:11; Admin Dose 650 MG; Start 10/10/16 at 14:00 Morphine Sulfate (morphine) 2 mg Q4H PRN IV PAIN LEVEL 7-10; Start 10/10/16 at 14:00 Lorazepam (Ativan) 1 mg Q2H PRN IV ANXIETY Last administered on 10/15/16 20:27 ; Admin Dose 1 MG; Start 10/10/16 at 14:00 Docusate Sodium 100 mg 100 mg Q12H PRN PO CONSTIPATION; Start 10/10/16 at 14:00 Levetiracetam/ Sodium Chloride (Keppra Iv/NS) 110 ml @ 440 mls/hr Q12 IVPB Last administered on 10/23/16 10:28; Admin Dose 440 MLS/HR; Start 10/10/16 at 14:00 Hydralazine HCl (Apresoline) 10 mg Q6H PRN IV ELEVATED BLOOD PRESSURE Last administered on 10/15/16 15:05; Admin Dose 10 MG; Start 10/10/16 at 19:00 Atorvastatin Calcium (Lipitor) 40 mg QHS GTB Last administered on 10/22/16 20: 55; Admin Dose 40 MG; Start 10/15/16 at 21:00 Benazepril HCl (Lotensin) 10 mg DAILY GTB Last administered on 10/23/16 10:29 ; Admin Dose 10 MG; Start 10/15/16 at 12:00 Docusate Sodium (Colace Liquid Cup) 200 mg DAILY PRN GTB CONSTIPATION Last administered on 10/16/16 08:44; Admin Dose 200 MG; Start 10/15/16 at 12:00 Ferrous Sulfate (Feosol Liquid Cup) 330 mg DAILY GTB Last administered on 10:28; Admin Dose 330 MG; Start 10/16/16 at 09:00 Hydralazine HCl (Apresoline) 25 mg Q6H PRN GTB ELEVATED BLOOD PRESSURE; Start 10/15/16 at 12:00 Mineral Oil (Fleet Mineral Oil Enema) 133 ml DAILY PRN [place] CONSTIPATION Last administered on 10/16/16 03:54; Admin Dose 133 ML; Start 10/15/16 at 12:00 Multivitamins Therapeutic (Theragran) 1 tab DAILY PO Last administered on 10:29; Admin Dose 1 TAB; Start 10/15/16 at 12:00 Potassium Chloride (Potassium Chloride Pwd/Soln) 40 meq DAILY GTB Last administered on 10/23/16 10:28; Admin Dose 40 MEQ; Start 10/16/16 at 09:00 Miscellaneous Information 1 ea NOTE XX ; Start 10/15/16 at 21:30 Glucose (Glutose) 15 gm Q15M PRN PO DECREASED GLUCOSE; Start 10/15/16 at 21:30 Glucose (Glutose) 22.5 gm Q15M PRN PO DECREASED GLUCOSE; Start 10/15/16 at 21: 30 Dextrose (D50w Syringe) 25 ml Q15M PRN IV DECREASED GLUCOSE Last administered on 10/16/16 16:31; Admin Dose 25 ML; Start 10/15/16 at 21:30 Dextrose (D50w Syringe) 50 ml Q15M PRN IV DECREASED GLUCOSE; Start 10/15/16 at 21:30 Glucagon (Glucagen) 1 mg Q15M PRN IM DECREASED GLUCOSE; Start 10/15/16 at 21:30 Glucose (Glutose) 15 gm Q15M PRN BUCCAL DECREASED GLUCOSE; Start 10/15/16 at 21 :30 Metoclopramide HCl (Reglan) 10 mg Q6 IV Last administered on 10/23/16 13:51; Admin Dose 10 MG; Start 10/16/16 at 18:00 Lactobacillus Acidoph/Bulgaricus (Floranex) 2 tab BID PO Last administered on 10:28; Admin Dose 2 TAB; Start 10/16/16 at 21:00 Lactulose (Enulose) 30 gm BID GTB Last administered on 10/23/16 10:27; Admin Dose 30 GM; Start 10/16/16 at 21:00 Lansoprazole (Prevacid) 30 mg BID@06,18 GTB Last administered on 10/23/16 05: 20; Admin Dose 30 MG; Start 10/17/16 at 06:00 Carbidopa/Levodopa (Sinemet (25/ 100)) 1 tab TID GTB Last administered on 13:51; Admin Dose 1 TAB; Start 10/16/16 at 21:00 Lidocaine (Lidocaine 5% Oint) 1 applic TID TOP Last administered on 10/23/16 13:52; Admin Dose 1 APPLIC; Start 10/16/16 at 21:00 Metoprolol Tartrate (Lopressor) 12.5 mg BID GTB Last administered on 10/23/16 10:29; Admin Dose 12.5 MG; Start 10/16/16 at 21:00 Nystatin (Nystatin Susp) 5 ml QID PO Last administered on 10/23/16 13:51; Admin Dose 5 ML; Start 10/16/16 at 21:00 Insulin Aspart (Novolog Insulin Pen) NOVOLOG *MILD* ALGORI... Q4 SC Last administered on 10/21/16 04:15; Admin Dose 1 UNIT; Start 10/20/16 at 17:00 Insulin Glargine (Lantus) 24 unit DAILY@20 SC Last administered on 10/22/16t 20 :54; Admin Dose 24 UNIT; Start 10/20/16 at 20:00 Demeclocycline HCl (Declomycin) 300 mg BID GTB ; Start 10/23/16 at 21:00 ALTHEA ACOSTA Oct 23, 2016 14:30
[2016-10-23] MEDS ORDERED: BARIUM SULF 2% 450 ML BTL (BERRY SMOOTHIE) PO ONE (18:00)
--- NOTE | 2016-10-23 18:25 | CONS ---
DATE OF ADMISSION: 10/10/2016 DATE OF CONSULTATION: TYPE OF CONSULTATION: Gastroenterology. Dear Dr. Colby: Thank you for asking me to see Mr. Goldstein in GI consultation. HISTORY OF PRESENT ILLNESS: As you know, the patient is a 51-year-old male. GI consultati on is requested because of history of vomiting. The patient is unable to give me any history. Most of the history is obtained from the family, the nursing staff and the chart. He was admitted to the hospital because of seizures, particularly was admitted to the intensive care unit. After the seizures subsided, he was transferred to the medical floor. He had hyponatremia. He got pneumonia, respiratory failure, status post tracheostomy. He is on a G-tube feeding at this time. MEDICATIONS: Currently include: 1. Declomycin. 2. Lantus. 3. NovoLog insulin. 4. Prevacid. 5. Floranex. 6. Enulose. 7. Lidocaine. 8. Lopressor. 9. Nystatin. 10. Reglan. 11. Feosol. 12. Potassium chloride. 13. Glucagon. 14. Lipitor. 15. Lotensin. 16. Apresoline. Look at the chart for more information. PAST MEDICAL HISTORY: He had a craniotomy a.m. for a brain tumor. He developed pneumonia and respi ratory failure and he got intubated and he has got a tracheostomy. PHYSICAL EXAMINATION: GENERAL: The patient is a 51-year-old male who at this time is unresponsive status post tr acheostomy and is on the ventilator. VITAL SIGNS: Pulse is 78, blood pressure is 122/68. CARDIOVASCULAR: Normal heart sounds. RESPIRATORY: Normal breath sounds. ABDOMEN: Showed a soft abdomen with no palpable masses, no tenderness, no distention. LABORATORY WORKUP: Potassium 4.1, sodium 130, BUN is 14, creatinine 0.25. Coagulation prothrombin time 13.5. CLINICAL IMPRESSION: The patient presenting with history of vomiting. He has no gastric residual. Rule out pancreatitis. Rule out bowel obstruction. Rule out peptic ulcer disease, esophagitis, etc. PLAN: Recommend CAT scan of the abdomen and then serum amylase and lipase, then we will proceed fur ther. Once again, I would to like to thank you for this consultation. Dictated By: DARNELL BRITO/PIPER Conf#: [id number] DID#: [id number] CC: JENELLE COLBY MD; DARNELL HERNANDEZ MD;*[facility]*
[2016-10-23 19:12] LABS: AMYLASE 49 U/L (11-123)
[2016-10-23] MEDS: ATORVASTATIN 40 MG TAB GTB SCH (21:20)
[2016-10-23] MEDS: DEMECLOCYCLINE 150 MG TAB GTB SCH (21:20)
[2016-10-23] MEDS: INSULIN GLARGINE [LANtus] 3 ML PEN SC SCH (21:29)
[2016-10-24] VITALS (24 sets, daily range): BP systolic 130–171; BP diastolic 76–90; PULSE 75–113; RESP 14–36
[2016-10-24] MEDS: METOCLOPRAMIDE 10 MG INJ IV SCH ×4 (00:52→17:38)
[2016-10-24] MEDS: INSULIN ASPART [NOVOLOG] 3 ML PEN SC SCH ×4 (01:00→17:38)
[2016-10-24] MEDS: LANSOPRAZOLE 30 MG CAP GTB SCH ×2 (06:00→17:38)
[2016-10-24 07:17] LABS: ADD SCAN DIFF NO
[2016-10-24 07:19] LABS: BASOPHIL # 0.1 10^3/ul (0.0-0.1); BASOPHILS % 1.6 % (0.0-2.0); EOSINOPHILS # 0.1 10^3/ul (0.0-0.5); EOSINOPHILS % 1.1 % (0.0-7.0); HEMATOCRIT 30.9 % (42.0-52.0); HEMOGLOBIN 10.2 g/dl (14.0-18.0); LYMPHOCYTES # 1.1 10^3/ul (0.8-2.9); LYMPHOCYTES % 17.3 % (15.0-51.0); MEAN CORPUSCULAR HEMOGLOBIN 30.5 pg (29.0-33.0); MEAN CORPUSCULAR VOLUME 92.5 fl (82.0-101.0); MEAN PLATELET VOLUME 8.9 fl (7.4-10.4); MONOCYTE # 0.7 10^3/ul (0.3-0.9); MONOCYTES % 11.1 % (0.0-11.0); NEUTROPHIL # 4.2 10^3/ul (1.6-7.5); PLATELET COUNT 319 10^3/UL (140-415); RED BLOOD COUNT 3.34 10^6/ul (4.70-6.10); RED CELL DISTRIBUTION WIDTH 15.2 % (11.5-14.5); WHITE BLOOD COUNT 6.2 10^3/ul (4.8-10.8)
[2016-10-24 07:45] LABS: POTASSIUM 3.9 mmol/L (3.5-5.1)
[2016-10-24 07:48] LABS: CREATININE 0.32 mg/dl (0.61-1.24)
[2016-10-24 07:49] LABS: CALCIUM 8.6 mg/dl (8.4-10.2)
[2016-10-24] MEDS: IPRATROPIUM (HFA) 12.9 GM INHALER INH PRN (08:56)
[2016-10-24] MEDS: ALBUTEROL HFA 8 GM INHALER INH PRN (08:57)
[2016-10-24] MEDS: POTASSIUM CHLORIDE 20 MEQ POWDER FOR ORAL SOLN GTB SCH (09:00)
[2016-10-24] MEDS: METOPROLOL 25 MG TAB GTB SCH ×2 (09:00→20:51)
[2016-10-24] MEDS: LACTOBACILLUS CHEW TAB PO SCH (09:00)
[2016-10-24] MEDS: LIDOCAINE 5% 35 GM OINT TOP SCH ×3 (09:00→21:17)
[2016-10-24] MEDS: CARBIDOPA/LEVODOPA (25/100) TAB GTB SCH ×3 (09:00→20:50)
[2016-10-24] MEDS: MULTIVITAMINS THERAPEUTIC TAB PO SCH (09:00)
[2016-10-24] MEDS: LACTULOSE 30ML CUP GTB SCH ×2 (09:00→20:50)
[2016-10-24] MEDS: NYSTATIN SUSP 5 ML CUP PO SCH ×3 (09:00→17:38)
[2016-10-24] MEDS: DEMECLOCYCLINE 150 MG TAB GTB SCH ×2 (09:00→20:50)
[2016-10-24] MEDS: BENAZEPRIL 10 MG TAB GTB SCH (09:00)
[2016-10-24] MEDS: FERROUS SULFATE 60 MG/ML 5ML CUP GTB SCH (09:00)
[2016-10-24] MEDS ORDERED: IOHEXOL 300MG/ML 150 ML BTL ONE (09:30)
[2016-10-24] MEDS ORDERED: SOD CHLORIDE 0.9% 100 ML ONE (09:30)
--- NOTE | 2016-10-24 10:29 | RADRPT ---
PROCEDURE: CT Abdomen and Pelvis with and without contrast. CLINICAL INDICATION: Abdominal pain. TECHNIQUE: Routine abdominopelvic CT following the administration of intravenous contrast. Intravenous contrast: 100 cc of Omnipaque 300. Radiation dose: CTDIvol (mGy) = 9.2, 13.7; total DLP (mGy-cm) = 1291. One or more of the following dose reduction techniques were used: - Automated exposure control. - Adjustment of the mA and/or kV according to patient size. - Use of iterative reconstruction technique. COMPARISON: None. FINDINGS: Small left greater than right pleural effusions with right lower lobe consolidation with surrounding centrilobular nodules. There is no focal liver lesion. Gallbladder, biliary system, pancreas, adrenal glands, spleen, and kidneys are within normal limits. Tip of ANTENNA RIGGER shunt catheter terminates within the pelvis. There is a Knapp catheter identified within the urinary bladder. There is nonspecific thickening of the urinary bladder. There is no abnormal bowel wall thickening or dilatation. No lymphadenopathy. There is trace perihepatic ascites. There are no suspicious bone lesions. IMPRESSION: Right lower lobe pneumonia. Small right greater left pleural effusions and trace perihepatic ascite s. There is no evidence of bowel obstruction. Knapp catheter is in place within the decompressed urinary bladder. There is prominent mural thicke michele of the urinary bladder, which may be exaggerated due to underdistension; correlate clinically w ith urinalysis. RPTAT: [facility] .Alex Nguyen MD, Date Time Electronically viewed and signed by .Alex Nguyen MD, on 10/24/2016 10:29 .C/
[2016-10-24] MEDS: hydrALAzine 20 MG INJ IV PRN (11:31)
[2016-10-24] MEDS: LEVETIRACETAM IV 1,000 MG in SOD CHLORIDE 0.9% 100 ML IVPB SCH ×2 (11:31→21:17)
--- NOTE | 2016-10-24 12:01 | CONS ---
Date/Time of Note Date/Time of Note DATE: 10/24/16 TIME: 11:58 Assessment/Plan Assessment/Plan Additional Assessment/Plan Ventilator settings; AC of 14, tidal volume 500, PEEP of 5, 30% FiO2. Assessment recommendations; 1. Patient admitted for UTI and sepsis with marked clinical improvement. Off antibiotics now. 2. History of prior craniotomy resulting in severe anoxic brain injury patient remains ventilator dependent. 3. Stable seizure disorder. 4. History of hypertension. 5. Diabetes insipidus. With severe hypernatremia. Now serum sodium is normalized, patient off desmopressin. Continue current supportive care. Patient awaiting discharge. Consultation Date/Type/Reason Admit Date/Time Oct 10, 2016 at 13:53 Initial Consult Date 10/10/16 Type of Consultation: Pulmonary Referring Provider: MADDY HOPKINS MD 24 HR Interval Summary Free Text/Dictation Patient condition remains stable. Has remained hemodynamically stable. No seizure activity noted. Remains unresponsive due to anoxic brain injury. Also remains ventilator dependent. General exam; middle-aged man, on ventilator via tracheostomy currently in no distress. Unresponsive. Exam/Review of Systems Vital Signs Vitals Vital Signs Date Time Temp Pulse Resp B/P Pulse Ox O2 Delivery O2 Flow Rate FiO2 10/24/16 11:10 92 14 98 30 10/24/16 11:08 98.1 170/88 10/22/16 00:00 Mechanical Ventilator Intake and Output 10/23/16 10/23/16 10/24/16 15:00 23:00 07:00 Intake Total 470 ml 960 ml Output Total 750 ml 400 ml Balance -280 ml 560 ml Exam H EENT examination; supple neck, no JVD. No lymphadenopathy. Midline trachea. There is a well-healed frontal craniotomy scar. Pupils are midsize and reactive to light. Tracheostomy in place with clean insertion site. Dentition is fair. Chest examination; clear to auscultation bilaterally. S1-S2 audible, no murmurs. Regular rhythm. Abdomen examination; soft, G-tube in place. Bowel sounds audible. No organomegaly. Extremity examination; no peripheral edema. OIL DELIVERER examination; patient remains unresponsive. Results Result Diagram: 10/24/16 0600 10/24/16 0600 Results 24 hrs Laboratory Tests Test 10/23/16 18:36 2/24/17 18:45 10/23/16 21:26 10/24/16 01:21 Bedside Glucose 107 116 104 Amylase Level 49 Lipase 21 L Test 10/24/16 06:00 10/24/16 08:06 Anion Gap 16 Basophils # 0.1 Basophils % 1.6 Bedside Glucose 119 115 Blood Urea Nitrogen 12 Calcium Level 8.6 Carbon Dioxide Level 24 Chloride Level 105 Creatinine 0.32 L Eosinophils # 0.1 Eosinophils % 1.1 Glucose Level 109 Hematocrit 30.9 L Hemoglobin 10.2 L Lymphocytes # 1.1 Lymphocytes % 17.3 Mean Corpuscular Hemoglobin 30.5 Mean Corpuscular Hemoglobin Concent 33.0 Mean Corpuscular Volume 92.5 Mean Platelet Volume 8.9 Monocytes # 0.7 Monocytes % 11.1 H Neutrophils # 4.2 Neutrophils % 67.0 Nucleated Red Blood Cells # 0.0 Nucleated Red Blood Cells % 0.0 Platelet Count 319 # Potassium Level 3.9 Red Blood Count 3.34 L Red Cell Distribution Width 15.2 H Sodium Level 141 White Blood Count 6.2 # Medications Medications Current Medications Ondansetron HCl (Zofran Inj) 4 mg Q6H PRN IV NAUSEA AND/OR VOMITING Last administered on 10/16/16 09:08; Admin Dose 4 MG; Start 10/10/16 at 14:00 Nitroglycerin (Nitroglycerin (Sl Tab) 0.4 Mg) 1 tab Q5M PRN SL CHEST PAIN; Start 10/10/16 at 14:00 Acetaminophen (Tylenol Supp) 650 mg Q4H PRN [place] PAIN LEVEL 1-3 OR FEVER Last administered on 10/16/16 22:11; Admin Dose 650 MG; Start 10/10/16 at 14:00 Morphine Sulfate (morphine) 2 mg Q4H PRN IV PAIN LEVEL 7-10; Start 10/10/16 at 14:00 Lorazepam (Ativan) 1 mg Q2H PRN IV ANXIETY Last administered on 10/15/16 20:27 ; Admin Dose 1 MG; Start 10/10/16 at 14:00 Docusate Sodium 100 mg 100 mg Q12H PRN PO CONSTIPATION; Start 10/10/16 at 14:00 Levetiracetam/ Sodium Chloride (Keppra Iv/NS) 110 ml @ 440 mls/hr Q12 IVPB Last administered on 10/24/16 11:31; Admin Dose 440 MLS/HR; Start 10/10/16 at 14:00 Hydralazine HCl (Apresoline) 10 mg Q6H PRN IV ELEVATED BLOOD PRESSURE Last administered on 10/24/16 11:31; Admin Dose 10 MG; Start 10/10/16 at 19:00 Atorvastatin Calcium (Lipitor) 40 mg QHS GTB Last administered on 10/23/16 21: 20; Admin Dose 40 MG; Start 10/15/16 at 21:00 Benazepril HCl (Lotensin) 10 mg DAILY GTB Last administered on 10/23/16 10:29 ; Admin Dose 10 MG; Start 10/15/16 at 12:00 Docusate Sodium (Colace Liquid Cup) 200 mg DAILY PRN GTB CONSTIPATION Last administered on 10/16/16 08:44; Admin Dose 200 MG; Start 10/15/16 at 12:00 Ferrous Sulfate (Feosol Liquid Cup) 330 mg DAILY GTB Last administered on 10:28; Admin Dose 330 MG; Start 10/16/16 at 09:00 Hydralazine HCl (Apresoline) 25 mg Q6H PRN GTB ELEVATED BLOOD PRESSURE; Start 10/15/16 at 12:00 Mineral Oil (Fleet Mineral Oil Enema) 133 ml DAILY PRN [place] CONSTIPATION Last administered on 10/16/16 03:54; Admin Dose 133 ML; Start 10/15/16 at 12:00 Multivitamins Therapeutic (Theragran) 1 tab DAILY PO Last administered on 10:29; Admin Dose 1 TAB; Start 10/15/16 at 12:00 Potassium Chloride (Potassium Chloride Pwd/Soln) 40 meq DAILY GTB Last administered on 10/23/16 10:28; Admin Dose 40 MEQ; Start 10/16/16 at 09:00 Miscellaneous Information 1 ea NOTE XX ; Start 10/15/16 at 21:30 Glucose (Glutose) 15 gm Q15M PRN PO DECREASED GLUCOSE; Start 10/15/16 at 21:30 Glucose (Glutose) 22.5 gm Q15M PRN PO DECREASED GLUCOSE; Start 10/15/16 at 21: 30 Dextrose (D50w Syringe) 25 ml Q15M PRN IV DECREASED GLUCOSE Last administered on 10/16/16 16:31; Admin Dose 25 ML; Start 10/15/16 at 21:30 Dextrose (D50w Syringe) 50 ml Q15M PRN IV DECREASED GLUCOSE; Start 10/15/16 at 21:30 Glucagon (Glucagen) 1 mg Q15M PRN IM DECREASED GLUCOSE; Start 10/15/16 at 21:30 Glucose (Glutose) 15 gm Q15M PRN BUCCAL DECREASED GLUCOSE; Start 10/15/16 at 21 :30 Metoclopramide HCl (Reglan) 10 mg Q6 IV Last administered on 10/24/16 11:31; Admin Dose 10 MG; Start 10/16/16 at 18:00 Lactobacillus Acidoph/Bulgaricus (Floranex) 2 tab BID PO Last administered on 21:20; Admin Dose 2 TAB; Start 10/16/16 at 21:00 Lactulose (Enulose) 30 gm BID GTB Last administered on 10/23/16 21:20; Admin Dose 30 GM; Start 10/16/16 at 21:00 Lansoprazole (Prevacid) 30 mg BID@06,18 GTB Last administered on 10/23/16 18: 33; Admin Dose 30 MG; Start 10/17/16 at 06:00 Carbidopa/Levodopa (Sinemet (25/ 100)) 1 tab TID GTB Last administered on 21:20; Admin Dose 1 TAB; Start 10/16/16 at 21:00 Lidocaine (Lidocaine 5% Oint) 1 applic TID TOP Last administered on 10/24/16 09:00; Admin Dose 1 APPLIC; Start 10/16/16 at 21:00 Metoprolol Tartrate (Lopressor) 12.5 mg BID GTB Last administered on 10/23/16 21:22; Admin Dose 12.5 MG; Start 10/16/16 at 21:00 Nystatin (Nystatin Susp) 5 ml QID PO Last administered on 10/23/16 21:21; Admin Dose 5 ML; Start 10/16/16 at 21:00 Insulin Aspart (Novolog Insulin Pen) NOVOLOG *MILD* ALGORI... Q4 SC Last administered on 10/21/16 04:15; Admin Dose 1 UNIT; Start 10/20/16 at 17:00 Insulin Glargine (Lantus) 24 unit DAILY@20 SC Last administered on 10/23/16 21 :29; Admin Dose 24 UNIT; Start 10/20/16 at 20:00 Demeclocycline HCl (Declomycin) 300 mg BID GTB Last administered on 10/23/16 21:20; Admin Dose 300 MG; Start 10/23/16 at 21:00 JUANA DE LEÓN Oct 24, 2016 12:01
--- NOTE | 2016-10-24 12:09 | CONS ---
Date/Time of Note Date/Time of Note DATE: 10/24/16 TIME: 12:07 Assessment/Plan Assessment/Plan Additional Assessment/Plan 1. Severe hyponatremia with a sodium of 119, possibly acute on chronic hyponatremia versus acute severe hyponatremia.- pt went from hyponatremia to hypernatremia with treatment with 3% saline and one dose of tolvaptan - then Improved to normal today wtih D5W IVF and DDAVP 0.2mg PO x2 dose 10/15/16- on again Na dropped to 119 s/p Tovlaptan 15 mg PO x1 on 10/18/16-now Na 143 2. Seizures secondary to severe hyponatremia. 3. Sepsis secondary to bilateral pneumonia. 4. Ventilator-dependent respiratory failure, status post tracheostomy, on vent. 5. History of a previous brain tumor, had surgery. Currently, status post ventriculoperitoneal shunt in place. 6. History of a previous cerebellar cerebrovascular accident. PLAN: pt received 3 % saline and tolvaptan one dose on 10/10 and 10/11- went into polyuria, Na went from hyponatremia to hypernatremia- now improved to normal with D5W IVF and 2 dose of DDAVP 0.2mg- again today 10/16- na dropped from 140 to 122- given 3% hypertonic saline for another 12 hr - did not respond well, Na again dropped to 119- One dose of tolvaptan 15 mg X 1 10/18/16- Na dropped to 130 10/22/2016- tolvaptan 15 gram po x 1 dose on 09/21/16- now Na normal onTube feeding with diabeto source will start Demeclocycline 300mg BID to avoid use of tolvaptan monitor Na, pt has acute on chronic hyponatremia ventilator care as per pulmonary will follow up Consultation Date/Type/Reason Admit Date/Time Oct 10, 2016 at 13:53 Initial Consult Date 10/10/16 Type of Consultation: NEPHROLOGY Reason for Consultation Hyponatremia>Hypernatremia>Hyponatremia Referring Provider: MADDY HOPKINS MD 24 HR Interval Summary Free Text/Dictation Na 141,good urine output,BP stable Exam/Review of Systems Vital Signs Vitals Vital Signs Date Time Temp Pulse Resp B/P Pulse Ox O2 Delivery O2 Flow Rate FiO2 10/24/16 11:10 92 14 98 30 10/24/16 11:08 98.1 170/88 10/22/16 00:00 Mechanical Ventilator Intake and Output 10/23/16 10/23/16 10/24/16 15:00 23:00 07:00 Intake Total 470 ml 960 ml Output Total 750 ml 400 ml Balance -280 ml 560 ml Exam HEENT: Tracheostomy site is clear. LUNGS: Bilateral coarse breath sounds with bilateral basilar rales present and lower lobe rhonchi present. HEART: S1, S2, tachycardia, no murmur. ABDOMEN: Soft. G-tube in place. EXTREMITIES: No clubbing, cyanosis, or edema. The patient is very debilitated. , + steve catheter in place Results Result Diagram: 10/24/16 0600 10/24/16 0600 Results 24 hrs Laboratory Tests Test 10/23/16 18:36 10/23/16 18:45 10/23/16 21:26 10/24/16 01:21 Bedside Glucose 107 116 104 Amylase Level 49 Lipase 21 L Test 10/24/16 06:00 10/24/16 08:06 Anion Gap 16 Basophils # 0.1 Basophils % 1.6 Bedside Glucose 119 115 Blood Urea Nitrogen 12 Calcium Level 8.6 Carbon Dioxide Level 24 Chloride Level 105 Creatinine 0.32 L Eosinophils # 0.1 Eosinophils % 1.1 Glucose Level 109 Hematocrit 30.9 L Hemoglobin 10.2 L Lymphocytes # 1.1 Lymphocytes % 17.3 Mean Corpuscular Hemoglobin 30.5 Mean Corpuscular Hemoglobin Concent 33.0 Mean Corpuscular Volume 92.5 Mean Platelet Volume 8.9 Monocytes # 0.7 Monocytes % 11.1 H Neutrophils # 4.2 Neutrophils % 67.0 Nucleated Red Blood Cells # 0.0 Nucleated Red Blood Cells % 0.0 Platelet Count 319 # Potassium Level 3.9 Red Blood Count 3.34 L Red Cell Distribution Width 15.2 H Sodium Level 141 White Blood Count 6.2 # Medications Medications Current Medications Ondansetron HCl (Zofran Inj) 4 mg Q6H PRN IV NAUSEA AND/OR VOMITING Last administered on 10/16/16 09:08; Admin Dose 4 MG; Start 10/10/16 at 14:00 Nitroglycerin (Nitroglycerin (Sl Tab) 0.4 Mg) 1 tab Q5M PRN SL CHEST PAIN; Start 10/10/16 at 14:00 Acetaminophen (Tylenol Supp) 650 mg Q4H PRN [place] PAIN LEVEL 1-3 OR FEVER Last administered on 10/16/16 22:11; Admin Dose 650 MG; Start 10/10/16 at 14:00 Morphine Sulfate (morphine) 2 mg Q4H PRN IV PAIN LEVEL 7-10; Start 10/10/16 at 14:00 Lorazepam (Ativan) 1 mg Q2H PRN IV ANXIETY Last administered on 10/15/16 20:27 ; Admin Dose 1 MG; Start 10/10/16 at 14:00 Docusate Sodium 100 mg 100 mg Q12H PRN PO CONSTIPATION; Start 10/10/16 at 14:00 Levetiracetam/ Sodium Chloride (Keppra Iv/NS) 110 ml @ 440 mls/hr Q12 IVPB Last administered on 10/24/16 11:31; Admin Dose 440 MLS/HR; Start 10/10/16 at 14:00 Hydralazine HCl (Apresoline) 10 mg Q6H PRN IV ELEVATED BLOOD PRESSURE Last administered on 10/24/16 11:31; Admin Dose 10 MG; Start 10/10/16 at 19:00 Atorvastatin Calcium (Lipitor) 40 mg QHS GTB Last administered on 10/23/16 21: 20; Admin Dose 40 MG; Start 10/15/16 at 21:00 Benazepril HCl (Lotensin) 10 mg DAILY GTB Last administered on 10/23/16 10:29 ; Admin Dose 10 MG; Start 10/15/16 at 12:00 Docusate Sodium (Colace Liquid Cup) 200 mg DAILY PRN GTB CONSTIPATION Last administered on 10/16/16 08:44; Admin Dose 200 MG; Start 10/15/16 at 12:00 Ferrous Sulfate (Feosol Liquid Cup) 330 mg DAILY GTB Last administered on 10:28; Admin Dose 330 MG; Start 10/16/16 at 09:00 Hydralazine HCl (Apresoline) 25 mg Q6H PRN GTB ELEVATED BLOOD PRESSURE; Start 10/15/16 at 12:00 Mineral Oil (Fleet Mineral Oil Enema) 133 ml DAILY PRN [place] CONSTIPATION Last administered on 10/16/16 03:54; Admin Dose 133 ML; Start 10/15/16 at 12:00 Multivitamins Therapeutic (Theragran) 1 tab DAILY PO Last administered on 10:29; Admin Dose 1 TAB; Start 10/15/16 at 12:00 Potassium Chloride (Potassium Chloride Pwd/Soln) 40 meq DAILY GTB Last administered on 10/23/16 10:28; Admin Dose 40 MEQ; Start 10/16/16 at 09:00 Miscellaneous Information 1 ea NOTE XX ; Start 10/15/16 at 21:30 Glucose (Glutose) 15 gm Q15M PRN PO DECREASED GLUCOSE; Start 10/15/16 at 21:30 Glucose (Glutose) 22.5 gm Q15M PRN PO DECREASED GLUCOSE; Start 10/15/16 at 21: 30 Dextrose (D50w Syringe) 25 ml Q15M PRN IV DECREASED GLUCOSE Last administered on 10/16/16 16:31; Admin Dose 25 ML; Start 10/15/16 at 21:30 Dextrose (D50w Syringe) 50 ml Q15M PRN IV DECREASED GLUCOSE; Start 10/15/16 at 21:30 Glucagon (Glucagen) 1 mg Q15M PRN IM DECREASED GLUCOSE; Start 10/15/16 at 21:30 Glucose (Glutose) 15 gm Q15M PRN BUCCAL DECREASED GLUCOSE; Start 10/15/16 at 21 :30 Metoclopramide HCl (Reglan) 10 mg Q6 IV Last administered on 10/24/16 11:31; Admin Dose 10 MG; Start 10/16/16 at 18:00 Lactobacillus Acidoph/Bulgaricus (Floranex) 2 tab BID PO Last administered on 21:20; Admin Dose 2 TAB; Start 10/16/16 at 21:00 Lactulose (Enulose) 30 gm BID GTB Last administered on 10/23/16 21:20; Admin Dose 30 GM; Start 10/16/16 at 21:00 Lansoprazole (Prevacid) 30 mg BID@,18 GTB Last administered on 10/23/16 18: 33; Admin Dose 30 MG; Start 10/17/16 at 06:00 Carbidopa/Levodopa (Sinemet (25/ 100)) 1 tab TID GTB Last administered on 21:20; Admin Dose 1 TAB; Start 10/16/16 at 21:00 Lidocaine (Lidocaine 5% Oint) 1 applic TID TOP Last administered on 10/24/16 09:00; Admin Dose 1 APPLIC; Start 10/16/16 at 21:00 Metoprolol Tartrate (Lopressor) 12.5 mg BID GTB Last administered on 10/23/16 21:22; Admin Dose 12.5 MG; Start 10/16/16 at 21:00 Nystatin (Nystatin Susp) 5 ml QID PO Last administered on 10/23/16 21:21; Admin Dose 5 ML; Start 10/16/16 at 21:00 Insulin Aspart (Novolog Insulin Pen) NOVOLOG *MILD* ALGORI... Q4 SC Last administered on 10/21/16 04:15; Admin Dose 1 UNIT; Start 10/20/16 at 17:00 Insulin Glargine (Lantus) 24 unit DAILY@20 SC Last administered on 10/23/16 21 :29; Admin Dose 24 UNIT; Start 10/20/16 at 20:00 Demeclocycline HCl (Declomycin) 300 mg BID GTB Last administered on 10/23/16 21:20; Admin Dose 300 MG; Start 10/23/16 at 21:00 LISSA PARK MD Oct 24, 2016 12:09
--- NOTE | 2016-10-24 14:46 | PN ---
Date/Time of Note Date/Time of Note DATE: 10/24/16 TIME: 14:41 Assessment/Plan VTE Prophylaxis VTE Prophylaxis Intervention: SCD's, other Lines/Catheters IV Catheter Type [facility]from [facility]): [facility] Urinary Cath still in place: Yes Reason Cath still needed: urinary retention Assessment/Plan Assessment/Plan - Leukocytosis, s/p emesis, continue empiric abx for possible aspiration. - per Dr. Mas in gastroenterology consultation. - Sepsis secondary to urinary tract infection and healthcare-acquired pneumonia. - per Dr. Sales in infectious disease consultation. Continue antibiotics per ID. - Ventilator dependent respiratory failure. - per Dr. Unger from pulmonology standpoint. Continue bronchodilators and ventilatory support. 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 - Seizure disorder. Continue Keppra. - seizure precautions - Hypertension, continue benazepril and hydralazine. - Hyponatremia 2 SIADH. - per Dr. Tovar in nephrology consultation. - History of cerebrovascular accident. Continue sequential compression device for deep venous thrombosis prophylaxis and Pepcid for peptic ulcer disease prophylaxis. Patient's condition and plan of care discussed with patient's at the bedside. All questions answered, including MRI results. Further recommendations based on clinical course. Plan of care discussed with Dr. Desir/ staff/ Subjective 24 Hr Interval Summary Free Text/Dictation NAD, seems comfortable. Family- at bed side- all Qs answered. Constitutional: requiring IVF Eyes: no complaints ENT: no complaints Respiratory: no complaints Cardiovascular: no complaints Exam/Review of Systems Vital Signs Vitals Vital Signs Date Time Temp Pulse Resp B/P Pulse Ox O2 Delivery O2 Flow Rate FiO2 10/24/16 13:05 113 21 97 30 10/24/16 11:08 98.1 170/88 10/22/16 00:00 Mechanical Ventilator Intake and Output 10/23/16 10/23/16 10/24/16 15:00 23:00 07:00 Intake Total 470 ml 960 ml Output Total 750 ml 400 ml Balance -280 ml 560 ml Exam Constitutional: alert Eyes: nl sclera ENMT: nl external ears & nose Neck: non-tender Respiratory: diminished breath sounds Cardiovascular: nl pulses Gastrointestinal: non-tender, other, soft Musculoskeletal: muscle weakness Extremities: normal pulses Neurological: confused, lethargic Lymph: other Results Result Diagram: 10/24/16 0600 10/24/16 0600 Results 24 hrs Laboratory Tests Test 10/23/16 18:36 10/23/16 18:45 10/23/16 21:26 10/24/16 01:21 Bedside Glucose 107 116 104 Amylase Level 49 Lipase 21 L Test 10/24/16 06:00 10/24/16 08:06 Anion Gap 16 Basophils # 0.1 Basophils % 1.6 Bedside Glucose 119 115 Blood Urea Nitrogen 12 Calcium Level 8.6 Carbon Dioxide Level 24 Chloride Level 105 Creatinine 0.32 L Eosinophils # 0.1 Eosinophils % 1.1 Glucose Level 109 Hematocrit 30.9 L Hemoglobin 10.2 L Lymphocytes # 1.1 Lymphocytes % 17.3 Mean Corpuscular Hemoglobin 30.5 Mean Corpuscular Hemoglobin Concent 33.0 Mean Corpuscular Volume 92.5 Mean Platelet Volume 8.9 Monocytes # 0.7 Monocytes % 11.1 H Neutrophils # 4.2 Neutrophils % 67.0 Nucleated Red Blood Cells # 0.0 Nucleated Red Blood Cells % 0.0 Platelet Count 319 # Potassium Level 3.9 Red Blood Count 3.34 L Red Cell Distribution Width 15.2 H Sodium Level 141 White Blood Count 6.2 # Medications Medications Current Medications Ondansetron HCl (Zofran Inj) 4 mg Q6H PRN IV NAUSEA AND/OR VOMITING Last administered on 10/16/16 09:08; Admin Dose 4 MG; Start 10/10/16 at 14:00 Nitroglycerin (Nitroglycerin (Sl Tab) 0.4 Mg) 1 tab Q5M PRN SL CHEST PAIN; Start 10/10/16 at 14:00 Acetaminophen (Tylenol Supp) 650 mg Q4H PRN [place] PAIN LEVEL 1-3 OR FEVER Last administered on 10/16/16 22:11; Admin Dose 650 MG; Start 10/10/16 at 14:00 Morphine Sulfate (morphine) 2 mg Q4H PRN IV PAIN LEVEL 7-10; Start 10/10/16 at 14:00 Lorazepam (Ativan) 1 mg Q2H PRN IV ANXIETY Last administered on 10/15/16 20:27 ; Admin Dose 1 MG; Start 10/10/16 at 14:00 Docusate Sodium 100 mg 100 mg Q12H PRN PO CONSTIPATION; Start 10/10/16 at 14:00 Levetiracetam/ Sodium Chloride (Keppra Iv/NS) 110 ml @ 440 mls/hr Q12 IVPB Last administered on 10/24/16 11:31; Admin Dose 440 MLS/HR; Start 10/10/16 at 14:00 Hydralazine HCl (Apresoline) 10 mg Q6H PRN IV ELEVATED BLOOD PRESSURE Last administered on 10/24/16 11:31; Admin Dose 10 MG; Start 10/10/16 at 19:00 Atorvastatin Calcium (Lipitor) 40 mg QHS GTB Last administered on 10/23/16 21: 20; Admin Dose 40 MG; Start 10/15/16 at 21:00 Benazepril HCl (Lotensin) 10 mg DAILY GTB Last administered on 10/23/16 10:29 ; Admin Dose 10 MG; Start 10/15/16 at 12:00 Docusate Sodium (Colace Liquid Cup) 200 mg DAILY PRN GTB CONSTIPATION Last administered on 10/16/16 08:44; Admin Dose 200 MG; Start 10/15/16 at 12:00 Ferrous Sulfate (Feosol Liquid Cup) 330 mg DAILY GTB Last administered on 10:28; Admin Dose 330 MG; Start 10/16/16 at 09:00 Hydralazine HCl (Apresoline) 25 mg Q6H PRN GTB ELEVATED BLOOD PRESSURE; Start 10/15/16 at 12:00 Mineral Oil (Fleet Mineral Oil Enema) 133 ml DAILY PRN [place] CONSTIPATION Last administered on 10/16/16 03:54; Admin Dose 133 ML; Start 10/15/16 at 12:00 Multivitamins Therapeutic (Theragran) 1 tab DAILY PO Last administered on 10:29; Admin Dose 1 TAB; Start 10/15/16 at 12:00 Potassium Chloride (Potassium Chloride Pwd/Soln) 40 meq DAILY GTB Last administered on 10/23/16 10:28; Admin Dose 40 MEQ; Start 10/16/16 at 09:00 Miscellaneous Information 1 ea NOTE XX ; Start 10/15/16 at 21:30 Glucose (Glutose) 15 gm Q15M PRN PO DECREASED GLUCOSE; Start 10/15/16 at 21:30 Glucose (Glutose) 22.5 gm Q15M PRN PO DECREASED GLUCOSE; Start 10/15/16 at 21: 30 Dextrose (D50w Syringe) 25 ml Q15M PRN IV DECREASED GLUCOSE Last administered on 10/16/16 16:31; Admin Dose 25 ML; Start 10/15/16 at 21:30 Dextrose (D50w Syringe) 50 ml Q15M PRN IV DECREASED GLUCOSE; Start 10/15/16 at 21:30 Glucagon (Glucagen) 1 mg Q15M PRN IM DECREASED GLUCOSE; Start 10/15/16 at 21:30 Glucose (Glutose) 15 gm Q15M PRN BUCCAL DECREASED GLUCOSE; Start 10/15/16 at 21 :30 Metoclopramide HCl (Reglan) 10 mg Q6 IV Last administered on 10/24/16 11:31; Admin Dose 10 MG; Start 10/16/16 at 18:00 Lactobacillus Acidoph/Bulgaricus (Floranex) 2 tab BID PO Last administered on 21:20; Admin Dose 2 TAB; Start 10/16/16 at 21:00 Lactulose (Enulose) 30 gm BID GTB Last administered on 10/23/16 21:20; Admin Dose 30 GM; Start 10/16/16 at 21:00 Lansoprazole (Prevacid) 30 mg BID@06,18 GTB Last administered on 10/23/16 18: 33; Admin Dose 30 MG; Start 10/17/16 at 06:00 Carbidopa/Levodopa (Sinemet (25/ 100)) 1 tab TID GTB Last administered on 14:03; Admin Dose 1 TAB; Start 10/16/16 at 21:00 Lidocaine (Lidocaine 5% Oint) 1 applic TID TOP Last administered on 10/24/16 13:00; Admin Dose 1 APPLIC; Start 10/16/16 at 21:00 Metoprolol Tartrate (Lopressor) 12.5 mg BID GTB Last administered on 10/23/16 21:22; Admin Dose 12.5 MG; Start 10/16/16 at 21:00 Nystatin (Nystatin Susp) 5 ml QID PO Last administered on 10/24/16 14:03; Admin Dose 5 ML; Start 10/16/16 at 21:00 Insulin Glargine (Lantus) 24 unit DAILY@20 SC Last administered on 10/23/16 21 :29; Admin Dose 24 UNIT; Start 10/20/16 at 20:00 Demeclocycline HCl (Declomycin) 300 mg BID GTB Last administered on 10/23/16 21:20; Admin Dose 300 MG; Start 10/23/16 at 21:00 Insulin Aspart (Novolog Insulin Pen) NOVOLOG *MILD* ALGORI... Q6 SC ; Start at 18:00 KENYATTA CAPPS Oct 24, 2016 14:46
--- NOTE | 2016-10-24 15:16 | CONS ---
DATE OF ADMISSION: 10/10/2016 DATE OF CONSULTATION: PROGRESS NOTE CHIEF COMPLAINT: At this time, no vomiting, no abdominal pain. Because of the abdominal pain and vomiting CAT scan of the abdomen was done, which showed evidence o f a pneumonia and no acute process. No bowel obstruction. CLINICAL IMPRESSION: Vomiting, probably secondary to gastroparesis. PLAN: Recommend to start G-tube feeding and observe. Dictated By: DARNELL BRITO/NTS Conf#: [id number] DID#: [id number]
[2016-10-24] MEDS: NYSTATIN SUSP 5 ML CUP GTB SCH (20:50)
[2016-10-24] MEDS: LACTOBACILLUS CHEW TAB GTB SCH (20:50)
[2016-10-24] MEDS: ATORVASTATIN 40 MG TAB GTB SCH (20:51)
[2016-10-24] MEDS: INSULIN GLARGINE [LANtus] 3 ML PEN SC SCH (20:56)
[2016-10-25] VITALS (23 sets, daily range): BP systolic 117–146; BP diastolic 76–82; PULSE 61–85; RESP 14–23
[2016-10-25] MEDS: METOCLOPRAMIDE 10 MG INJ IV SCH ×4 (00:34→18:30)
[2016-10-25] MEDS: INSULIN ASPART [NOVOLOG] 3 ML PEN SC SCH ×4 (00:39→18:00)
[2016-10-25] MEDS: LANSOPRAZOLE 30 MG CAP GTB SCH ×2 (06:12→18:30)
[2016-10-25] MEDS: POTASSIUM CHLORIDE 20 MEQ POWDER FOR ORAL SOLN GTB SCH (10:21)
[2016-10-25] MEDS: NYSTATIN SUSP 5 ML CUP GTB SCH ×4 (10:21→20:45)
[2016-10-25] MEDS: FERROUS SULFATE 60 MG/ML 5ML CUP GTB SCH (10:21)
[2016-10-25] MEDS: LACTULOSE 30ML CUP GTB SCH ×2 (10:21→20:45)
[2016-10-25] MEDS: CARBIDOPA/LEVODOPA (25/100) TAB GTB SCH ×3 (10:21→20:46)
[2016-10-25] MEDS: MULTIVITAMINS THERAPEUTIC TAB PO SCH (10:21)
[2016-10-25] MEDS: LEVETIRACETAM IV 1,000 MG in SOD CHLORIDE 0.9% 100 ML IVPB SCH ×2 (10:22→20:45)
[2016-10-25] MEDS: METOPROLOL 25 MG TAB GTB SCH ×2 (10:22→20:48)
[2016-10-25] MEDS: BENAZEPRIL 10 MG TAB GTB SCH (10:22)
[2016-10-25] MEDS: DEMECLOCYCLINE 150 MG TAB GTB SCH ×2 (10:22→20:46)
[2016-10-25] MEDS: LACTOBACILLUS CHEW TAB GTB SCH ×2 (10:22→20:46)
[2016-10-25] MEDS: LIDOCAINE 5% 35 GM OINT TOP SCH ×3 (10:23→20:45)
--- NOTE | 2016-10-25 11:18 | CONS ---
Date/Time of Note Date/Time of Note DATE: 10/25/16 TIME: : Assessment/Plan Assessment/Plan Additional Assessment/Plan 1. Severe hyponatremia with a sodium of 119 on admission with seizures, possibly acute on chronic hyponatremia versus acute severe hyponatremia.- pt went from hyponatremia to hypernatremia with treatment with 3% saline and one dose of tolvaptan - then Improved to normal today wtih D5W IVF and DDAVP 0.2mg PO x2 dose 10/15/16- on 10/16/16 again Na dropped to 119 s/p Tovlaptan 15 mg PO x1 on 10/18/16-now Na 143 2. Seizures secondary to severe hyponatremia. 3. Sepsis secondary to bilateral pneumonia. 4. Ventilator-dependent respiratory failure, status post tracheostomy, on vent. 5. History of a previous brain tumor, had surgery. Currently, status post ventriculoperitoneal shunt in place. 6. History of a previous cerebellar cerebrovascular accident. PLAN: pt received 3 % saline and tolvaptan one dose on 10/10 and 10/11- went into polyuria, Na went from hyponatremia to hypernatremia- now improved to normal with D5W IVF and 2 dose of DDAVP 0.2mg- again today 10/16- na dropped from 140 to 122- given 3% hypertonic saline for another 12 hr - did not respond well, Na again dropped to 119- One dose of tolvaptan 15 mg X 1 10/18/16- Na dropped to 130 10/22/2016- tolvaptan 15 gram po x 1 dose on 09/21/16- now Na normal, no labs today to review onTube feeding with diabeto source started on Demeclocycline 300mg BID to avoid use of tolvaptan monitor Na, pt has acute on chronic hyponatremia ventilator care as per pulmonary will follow up Consultation Date/Type/Reason Admit Date/Time Oct 10, 2016 at 13:53 Initial Consult Date 10/10/16 Type of Consultation: NEPHROLOGY Reason for Consultation Hyponatremia severe with seizures, > hypernatremia > hyponatremia Referring Provider: MADDY HOPKINS MD 24 HR Interval Summary Free Text/Dictation no labs today, Na was normal yesterday, no acute events overnight Exam/Review of Systems Vital Signs Vitals Vital Signs Date Time Temp Pulse Resp B/P Pulse Ox O2 Delivery O2 Flow Rate FiO2 10/25/16 09:00 73 14 99 30 10/25/16 07:35 97.4 131/76 10/22/16 00:00 Mechanical Ventilator Intake and Output 10/24/16 10/24/16 10/25/16 15:00 23:00 07:00 Intake Total 200 ml 440 ml Output Total 700 ml 150 ml Balance -500 ml 290 ml Exam HEENT: Tracheostomy site is clear. LUNGS: Bilateral coarse breath sounds with bilateral basilar rales present and lower lobe rhonchi present. HEART: S1, S2, tachycardia, no murmur. ABDOMEN: Soft. G-tube in place. EXTREMITIES: No clubbing, cyanosis, or edema. The patient is very debilitated. , + stvee catheter in place Results Result Diagram: 10/24/16 0600 10/24/16 0600 Results 24 hrs Laboratory Tests Test 10/24/16 17:37 10/24/16 20:54 10/25/16 00:38 10/25/16 06:14 Bedside Glucose 139 172 164 107 Medications Medications Current Medications Ondansetron HCl (Zofran Inj) 4 mg Q6H PRN IV NAUSEA AND/OR VOMITING Last administered on 10/16/16 09:08; Admin Dose 4 MG; Start 10/10/16 at 14:00 Nitroglycerin (Nitroglycerin (Sl Tab) 0.4 Mg) 1 tab Q5M PRN SL CHEST PAIN; Start 10/10/16 at 14:00 Acetaminophen (Tylenol Supp) 650 mg Q4H PRN [place] PAIN LEVEL 1-3 OR FEVER Last administered on 10/16/16 22:11; Admin Dose 650 MG; Start 10/10/16 at 14:00 Morphine Sulfate (morphine) 2 mg Q4H PRN IV PAIN LEVEL 7-10; Start 10/10/16 at 14:00 Lorazepam (Ativan) 1 mg Q2H PRN IV ANXIETY Last administered on 10/15/16 20:27 ; Admin Dose 1 MG; Start 10/10/16 at 14:00 Docusate Sodium 100 mg 100 mg Q12H PRN PO CONSTIPATION; Start 10/10/16 at 14:00 Levetiracetam/ Sodium Chloride (Keppra Iv/NS) 110 ml @ 440 mls/hr Q12 IVPB Last administered on 10/25/16 10:22; Admin Dose 440 MLS/HR; Start 10/10/16 at 14:00 Hydralazine HCl (Apresoline) 10 mg Q6H PRN IV ELEVATED BLOOD PRESSURE Last administered on 10/24/16 11:31; Admin Dose 10 MG; Start 10/10/16 at 19:00 Atorvastatin Calcium (Lipitor) 40 mg QHS GTB Last administered on 10/24/16 20: 51; Admin Dose 40 MG; Start 10/15/16 at 21:00 Benazepril HCl (Lotensin) 10 mg DAILY GTB Last administered on 10/25/16 10:22 ; Admin Dose 10 MG; Start 10/15/16 at 12:00 Docusate Sodium (Colace Liquid Cup) 200 mg DAILY PRN GTB CONSTIPATION Last administered on 10/16/16 08:44; Admin Dose 200 MG; Start 10/15/16 at 12:00 Ferrous Sulfate (Feosol Liquid Cup) 330 mg DAILY GTB Last administered on 10:21; Admin Dose 330 MG; Start 10/16/16 at 09:00 Hydralazine HCl (Apresoline) 25 mg Q6H PRN GTB ELEVATED BLOOD PRESSURE; Start 10/15/16 at 12:00 Mineral Oil (Fleet Mineral Oil Enema) 133 ml DAILY PRN [place] CONSTIPATION Last administered on 10/16/16 03:54; Admin Dose 133 ML; Start 10/15/16 at 12:00 Multivitamins Therapeutic (Theragran) 1 tab DAILY PO Last administered on 10:21; Admin Dose 1 TAB; Start 10/15/16 at 12:00 Potassium Chloride (Potassium Chloride Pwd/Soln) 40 meq DAILY GTB Last administered on 10/25/16 10:21; Admin Dose 40 MEQ; Start 10/16/16 at 09:00 Miscellaneous Information 1 ea NOTE XX ; Start 10/15/16 at 21:30 Glucose (Glutose) 15 gm Q15M PRN PO DECREASED GLUCOSE; Start 10/15/16 at 21:30 Glucose (Glutose) 22.5 gm Q15M PRN PO DECREASED GLUCOSE; Start 10/15/16 at 21: 30 Dextrose (D50w Syringe) 25 ml Q15M PRN IV DECREASED GLUCOSE Last administered on 10/16/16 16:31; Admin Dose 25 ML; Start 10/15/16 at 21:30 Dextrose (D50w Syringe) 50 ml Q15M PRN IV DECREASED GLUCOSE; Start 10/15/16 at 21:30 Glucagon (Glucagen) 1 mg Q15M PRN IM DECREASED GLUCOSE; Start 10/15/16 at 21:30 Glucose (Glutose) 15 gm Q15M PRN BUCCAL DECREASED GLUCOSE; Start 10/15/16 at 21 :30 Metoclopramide HCl (Reglan) 10 mg Q6 IV Last administered on 10/25/16 06:12; Admin Dose 10 MG; Start 10/16/16 at 18:00 Lactulose (Enulose) 30 gm BID GTB Last administered on 10/25/16 10:21; Admin Dose 30 GM; Start 10/16/16 at 21:00 Lansoprazole (Prevacid) 30 mg BID@,18 GTB Last administered on 10/25/16 06: 12; Admin Dose 30 MG; Start 10/17/16 at 06:00 Carbidopa/Levodopa (Sinemet (25/ 100)) 1 tab TID GTB Last administered on 10:21; Admin Dose 1 TAB; Start 10/16/16 at 21:00 Lidocaine (Lidocaine 5% Oint) 1 applic TID TOP Last administered on 10/25/16 10:23; Admin Dose 1 APPLIC; Start 10/16/16 at 21:00 Metoprolol Tartrate (Lopressor) 12.5 mg BID GTB Last administered on 10/25/16 10:22; Admin Dose 12.5 MG; Start 10/16/16 at 21:00 Insulin Glargine (Lantus) 24 unit DAILY@20 SC Last administered on 10/24/16 20 :56; Admin Dose 24 UNIT; Start 10/20/16 at 20:00 Demeclocycline HCl (Declomycin) 300 mg BID GTB Last administered on 10/25/16 10:22; Admin Dose 300 MG; Start 10/23/16 at 21:00 Insulin Aspart (Novolog Insulin Pen) NOVOLOG *MILD* ALGORI... Q6 SC Last administered on 10/25/16 00:39; Admin Dose 1 UNIT; Start 10/24/16 at 18:00 Lactobacillus Acidoph/Bulgaricus (Floranex) 2 tab BID GTB Last administered on 10/25/16 10:22; Admin Dose 2 TAB; Start 10/24/16 at 21:00 Nystatin (Nystatin Susp) 5 ml QID GTB Last administered on 10/25/16 10:21; Admin Dose 5 ML; Start 10/24/16 at 21:00 LISSA PARK MD Oct 25, 2016 11:18
--- NOTE | 2016-10-25 14:43 | CONS ---
Date/Time of Note Date/Time of Note DATE: 10/25/16 TIME: 14:40 Assessment/Plan Assessment/Plan Additional Assessment/Plan Ventilator settings; AC of 14, tidal volume 500, PEEP of 5, 30% FiO2. Assessment and recommendation; 1. Patient admitted with UTI and sepsis with marked clinical improvement off antibiotics now. 2. History of respiratory failure, patient ventilator dependent. 3. History of craniotomy. 4. History of seizure disorders. With no seizure activity noted during in hospital stay. 5. History of hypertension. Continue current supportive care. Patient awaiting transfer to rehab facility. Consultation Date/Type/Reason Admit Date/Time Oct 10, 2016 at 13:53 Initial Consult Date 10/10/16 Type of Consultation: Pulmonary Referring Provider: MADDY HOPKINS MD 24 HR Interval Summary Free Text/Dictation Patient condition remains stable. Has remained hemodynamically stable. No overt seizure activity noted. General examination; middle-aged man on ventilator via tracheostomy. Remains completely unresponsive. No distress noted. Exam/Review of Systems Vital Signs Vitals Vital Signs Date Time Temp Pulse Resp B/P Pulse Ox O2 Delivery O2 Flow Rate FiO2 10/25/16 13:50 68 14 100 30 10/25/16 12:16 97.7 135/79 10/22/16 00:00 Mechanical Ventilator Intake and Output 10/24/16 10/24/16 10/25/16 15:00 23:00 07:00 Intake Total 200 ml 440 ml Output Total 700 ml 150 ml Balance -500 ml 290 ml Exam H EENT examination; supple neck, no JVD. No lymphadenopathy. Tracheostomy in place with clean insertion site. Patient has a well-healed frontal craniotomy scar. Pupils are midsize. No thyromegaly. Chest examination; clear to auscultation bilaterally. S1-S2 audible, no murmurs. Regular rhythm. Abdomen examination; soft, G-tube in place. No organomegaly. Nondistended abdomen. Bowel sounds audible. Extremity examination; no peripheral edema. 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 Results Result Diagram: 10/24/16 0600 10/24/16 0600 Results 24 hrs Laboratory Tests Test 10/24/16 17:37 10/24/16 20:54 10/25/16 00:38 10/25/16 06:14 Bedside Glucose 139 172 164 107 Test 10/25/16 13:45 Bedside Glucose 94 Medications Medications Current Medications Ondansetron HCl (Zofran Inj) 4 mg Q6H PRN IV NAUSEA AND/OR VOMITING Last administered on 10/16/16 09:08; Admin Dose 4 MG; Start 10/10/16 at 14:00 Nitroglycerin (Nitroglycerin (Sl Tab) 0.4 Mg) 1 tab Q5M PRN SL CHEST PAIN; Start 10/10/16 at 14:00 Acetaminophen (Tylenol Supp) 650 mg Q4H PRN [place] PAIN LEVEL 1-3 OR FEVER Last administered on 10/16/16 22:11; Admin Dose 650 MG; Start 10/10/16 at 14:00 Morphine Sulfate (morphine) 2 mg Q4H PRN IV PAIN LEVEL 7-10; Start 10/10/16 at 14:00 Lorazepam (Ativan) 1 mg Q2H PRN IV ANXIETY Last administered on 10/15/16 20:27 ; Admin Dose 1 MG; Start 10/10/16 at 14:00 Docusate Sodium 100 mg 100 mg Q12H PRN PO CONSTIPATION; Start 10/10/16 at 14:00 Levetiracetam/ Sodium Chloride (Keppra Iv/NS) 110 ml @ 440 mls/hr Q12 IVPB Last administered on 10/25/16 10:22; Admin Dose 440 MLS/HR; Start 10/10/16 at 14:00 Hydralazine HCl (Apresoline) 10 mg Q6H PRN IV ELEVATED BLOOD PRESSURE Last administered on 10/24/16 11:31; Admin Dose 10 MG; Start 10/10/16 at 19:00 Atorvastatin Calcium (Lipitor) 40 mg QHS GTB Last administered on 10/24/16 20: 51; Admin Dose 40 MG; Start 10/15/16 at 21:00 Benazepril HCl (Lotensin) 10 mg DAILY GTB Last administered on 10/25/16 10:22 ; Admin Dose 10 MG; Start 10/15/16 at 12:00 Docusate Sodium (Colace Liquid Cup) 200 mg DAILY PRN GTB CONSTIPATION Last administered on 10/16/16 08:44; Admin Dose 200 MG; Start 10/15/16 at 12:00 Ferrous Sulfate (Feosol Liquid Cup) 330 mg DAILY GTB Last administered on 10:21; Admin Dose 330 MG; Start 10/16/16 at 09:00 Hydralazine HCl (Apresoline) 25 mg Q6H PRN GTB ELEVATED BLOOD PRESSURE; Start 10/15/16 at 12:00 Mineral Oil (Fleet Mineral Oil Enema) 133 ml DAILY PRN [place] CONSTIPATION Last administered on 10/16/16 03:54; Admin Dose 133 ML; Start 10/15/16 at 12:00 Multivitamins Therapeutic (Theragran) 1 tab DAILY PO Last administered on 10:21; Admin Dose 1 TAB; Start 10/15/16 at 12:00 Potassium Chloride (Potassium Chloride Pwd/Soln) 40 meq DAILY GTB Last administered on 10/25/16 10:21; Admin Dose 40 MEQ; Start 10/16/16 at 09:00 Miscellaneous Information 1 ea NOTE XX ; Start 10/15/16 at 21:30 Glucose (Glutose) 15 gm Q15M PRN PO DECREASED GLUCOSE; Start 10/15/16 at 21:30 Glucose (Glutose) 22.5 gm Q15M PRN PO DECREASED GLUCOSE; Start 10/15/16 at 21: 30 Dextrose (D50w Syringe) 25 ml Q15M PRN IV DECREASED GLUCOSE Last administered on 10/16/16 16:31; Admin Dose 25 ML; Start 10/15/16 at 21:30 Dextrose (D50w Syringe) 50 ml Q15M PRN IV DECREASED GLUCOSE; Start 10/15/16 at 21:30 Glucagon (Glucagen) 1 mg Q15M PRN IM DECREASED GLUCOSE; Start 10/15/16 at 21:30 Glucose (Glutose) 15 gm Q15M PRN BUCCAL DECREASED GLUCOSE; Start 10/15/16 at 21 :30 Metoclopramide HCl (Reglan) 10 mg Q6 IV Last administered on 10/25/16 13:47; Admin Dose 10 MG; Start 10/16/16 at 18:00 Lactulose (Enulose) 30 gm BID GTB Last administered on 10/25/16 10:21; Admin Dose 30 GM; Start 10/16/16 at 21:00 Lansoprazole (Prevacid) 30 mg BID@18 GTB Last administered on 10/25/16 06: 12; Admin Dose 30 MG; Start 10/17/16 at 06:00 Carbidopa/Levodopa (Sinemet (/ )) 1 tab TID GTB Last administered on 13:46; Admin Dose 1 TAB; Start 10/16/16 at 21:00 Lidocaine (Lidocaine 5% Oint) 1 applic TID TOP Last administered on 10/25/16 13:47; Admin Dose 1 APPLIC; Start 10/16/16 at 21:00 Metoprolol Tartrate (Lopressor) 12.5 mg BID GTB Last administered on 10/25/16 10:22; Admin Dose 12.5 MG; Start 10/16/16 at 21:00 Insulin Glargine (Lantus) 24 unit DAILY@20 SC Last administered on 10/24/16 20 :56; Admin Dose 24 UNIT; Start 10/20/16 at 20:00 Demeclocycline HCl (Declomycin) 300 mg BID GTB Last administered on 10/25/16 10:22; Admin Dose 300 MG; Start 10/23/16 at 21:00 Insulin Aspart (Novolog Insulin Pen) NOVOLOG *MILD* ALGORI... Q6 SC Last administered on 10/25/16 00:39; Admin Dose 1 UNIT; Start 10/24/16 at 18:00 Lactobacillus Acidoph/Bulgaricus (Floranex) 2 tab BID GTB Last administered on 10/25/16 10:22; Admin Dose 2 TAB; Start 10/24/16 at 21:00 Nystatin (Nystatin Susp) 5 ml QID GTB Last administered on 10/25/16 13:46; Admin Dose 5 ML; Start 10/24/16 at 21:00 JUANA DE LEÓN Oct 25, 2016 14:42
--- NOTE | 2016-10-25 17:54 | PN ---
Date/Time of Note Date/Time of Note DATE: 10/25/16 TIME: 17:53 Assessment/Plan VTE Prophylaxis VTE Prophylaxis Intervention: SCD's Lines/Catheters IV Catheter Type (from Nrs): Saline Lock Urinary Cath still in place: Yes Reason Cath still needed: urinary retention Assessment/Plan Assessment/Plan - Leukocytosis, s/p emesis, continue empiric abx for possible aspiration. - per Dr. Mas in gastroenterology consultation. - Sepsis secondary to urinary tract infection and healthcare-acquired pneumonia. - per Dr. Sales in infectious disease consultation. Continue antibiotics per ID. - Ventilator dependent respiratory failure. - per Dr. Unger from pulmonology standpoint. Continue bronchodilators and ventilatory support. 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 - Seizure disorder. Continue Keppra. - seizure precautions - Hypertension, continue benazepril and hydralazine. - Hyponatremia 2 SIADH. - per Dr. Tovar in nephrology consultation. - History of cerebrovascular accident. Continue sequential compression device for deep venous thrombosis prophylaxis and Pepcid for peptic ulcer disease prophylaxis. Patient's condition and plan of care discussed with patient's at the bedside. All questions answered Further recommendations based on clinical course. Plan of care discussed with Dr. Desir/ staff/ Subjective 24 Hr Interval Summary Free Text/Dictation NAD, vomited once today-dw staff Constitutional: requiring IVF, requiring O2 Exam/Review of Systems Vital Signs Vitals Vital Signs Date Time Temp Pulse Resp B/P Pulse Ox O2 Delivery O2 Flow Rate FiO2 10/25/16 17:15 63 14 100 30 10/25/16 16:16 98.3 146/82 10/22/16 00:00 Mechanical Ventilator Intake and Output 10/24/16 10/24/16 10/25/16 15:00 23:00 07:00 Intake Total 200 ml 440 ml Output Total 700 ml 150 ml Balance -500 ml 290 ml Exam Constitutional: frail, non-verbal Psych: nl mood/affect Eyes: nl sclera ENMT: nl external ears & nose Neck: non-tender Respiratory: diminished breath sounds Cardiovascular: nl pulses Gastrointestinal: non-tender, soft Musculoskeletal: muscle weakness Extremities: normal pulses Neurological: confused Lymph: nontender Results Result Diagram: 10/24/16 0600 10/24/16 0600 Results 24 hrs Laboratory Tests Test 10/24/16 20:54 10/25/16 00:38 10/25/16 06:14 10/25/16 13:45 Bedside Glucose 172 164 107 94 Medications Medications Current Medications Ondansetron HCl (Zofran Inj) 4 mg Q6H PRN IV NAUSEA AND/OR VOMITING Last administered on 10/16/16 09:08; Admin Dose 4 MG; Start 10/10/16 at 14:00 Nitroglycerin (Nitroglycerin (Sl Tab) 0.4 Mg) 1 tab Q5M PRN SL CHEST PAIN; Start 10/10/16 at 14:00 Acetaminophen (Tylenol Supp) 650 mg Q4H PRN [place] PAIN LEVEL 1-3 OR FEVER Last administered on 10/16/16 22:11; Admin Dose 650 MG; Start 10/10/16 at 14:00 Morphine Sulfate (morphine) 2 mg Q4H PRN IV PAIN LEVEL 7-10; Start 10/10/16 at 14:00 Lorazepam (Ativan) 1 mg Q2H PRN IV ANXIETY Last administered on 10/15/16 20:27 ; Admin Dose 1 MG; Start 10/10/16 at 14:00 Docusate Sodium 100 mg 100 mg Q12H PRN PO CONSTIPATION; Start 10/10/16 at 14:00 Levetiracetam/ Sodium Chloride (Keppra Iv/NS) 110 ml @ 440 mls/hr Q12 IVPB Last administered on 10/25/16 10:22; Admin Dose 440 MLS/HR; Start 10/10/16 at 14:00 Hydralazine HCl (Apresoline) 10 mg Q6H PRN IV ELEVATED BLOOD PRESSURE Last administered on 10/24/16 11:31; Admin Dose 10 MG; Start 10/10/16 at 19:00 Atorvastatin Calcium (Lipitor) 40 mg QHS GTB Last administered on 10/24/16 20: 51; Admin Dose 40 MG; Start 10/15/16 at 21:00 Benazepril HCl (Lotensin) 10 mg DAILY GTB Last administered on 10/25/16 10:22 ; Admin Dose 10 MG; Start 10/15/16 at 12:00 Docusate Sodium (Colace Liquid Cup) 200 mg DAILY PRN GTB CONSTIPATION Last administered on 10/16/16 08:44; Admin Dose 200 MG; Start 10/15/16 at 12:00 Ferrous Sulfate (Feosol Liquid Cup) 330 mg DAILY GTB Last administered on 10:21; Admin Dose 330 MG; Start 10/16/16 at 09:00 Hydralazine HCl (Apresoline) 25 mg Q6H PRN GTB ELEVATED BLOOD PRESSURE; Start 10/15/16 at 12:00 Mineral Oil (Fleet Mineral Oil Enema) 133 ml DAILY PRN [place] CONSTIPATION Last administered on 10/16/16 03:54; Admin Dose 133 ML; Start 10/15/16 at 12:00 Multivitamins Therapeutic (Theragran) 1 tab DAILY PO Last administered on 10:21; Admin Dose 1 TAB; Start 10/15/16 at 12:00 Potassium Chloride (Potassium Chloride Pwd/Soln) 40 meq DAILY GTB Last administered on 10/25/16 10:21; Admin Dose 40 MEQ; Start 10/16/16 at 09:00 Miscellaneous Information 1 ea NOTE XX ; Start 10/15/16 at 21:30 Glucose (Glutose) 15 gm Q15M PRN PO DECREASED GLUCOSE; Start 10/15/16 at 21:30 Glucose (Glutose) 22.5 gm Q15M PRN PO DECREASED GLUCOSE; Start 10/15/16 at 21: 30 Dextrose (D50w Syringe) 25 ml Q15M PRN IV DECREASED GLUCOSE Last administered on 10/16/16 16:31; Admin Dose 25 ML; Start 10/15/16 at 21:30 Dextrose (D50w Syringe) 50 ml Q15M PRN IV DECREASED GLUCOSE; Start 10/15/16 at 21:30 Glucagon (Glucagen) 1 mg Q15M PRN IM DECREASED GLUCOSE; Start 10/15/16 at 21:30 Glucose (Glutose) 15 gm Q15M PRN BUCCAL DECREASED GLUCOSE; Start 10/15/16 at 21 :30 Metoclopramide HCl (Reglan) 10 mg Q6 IV Last administered on 10/25/16 13:47; Admin Dose 10 MG; Start 10/16/16 at 18:00 Lactulose (Enulose) 30 gm BID GTB Last administered on 10/25/16 10:21; Admin Dose 30 GM; Start 2/17/17 at 21:00 Lansoprazole (Prevacid) 30 mg BID@06,18 GTB Last administered on 10/25/16 06: 12; Admin Dose 30 MG; Start 10/17/16 at 06:00 Carbidopa/Levodopa (Sinemet (25/ 100)) 1 tab TID GTB Last administered on 13:46; Admin Dose 1 TAB; Start 10/16/16 at 21:00 Lidocaine (Lidocaine 5% Oint) 1 applic TID TOP Last administered on 10/25/16 13:47; Admin Dose 1 APPLIC; Start 10/16/16 at 21:00 Metoprolol Tartrate (Lopressor) 12.5 mg BID GTB Last administered on 10/25/16 10:22; Admin Dose 12.5 MG; Start 10/16/16 at 21:00 Insulin Glargine (Lantus) 24 unit DAILY@20 SC Last administered on 10/24/16 20 :56; Admin Dose 24 UNIT; Start 10/20/16 at 20:00 Demeclocycline HCl (Declomycin) 300 mg BID GTB Last administered on 10/25/16 10:22; Admin Dose 300 MG; Start 10/23/16 at 21:00 Insulin Aspart (Novolog Insulin Pen) NOVOLOG *MILD* ALGORI... Q6 SC Last administered on 10/25/16 00:39; Admin Dose 1 UNIT; Start 10/24/16 at 18:00 Lactobacillus Acidoph/Bulgaricus (Floranex) 2 tab BID GTB Last administered on 10/25/16 10:22; Admin Dose 2 TAB; Start 10/24/16 at 21:00 Nystatin (Nystatin Susp) 5 ml QID GTB Last administered on 10/25/16 13:46; Admin Dose 5 ML; Start 10/24/16 at 21:00 KENYATTA CAPPS Oct 25, 2016 17:54
--- NOTE | 2016-10-25 18:31 | RADRPT ---
PROCEDURE: Chest x-ray CLINICAL INDICATION: Shortness of breath TECHNIQUE: Chest single view COMPARISON: 10/14/2016 FINDINGS: Tracheostomy tube remains in good position. There is a ventriculoperitoneal shunt along the right c hest wall. Heart is normal in size. Bony vessels are normal in caliber. There is persistent infil trate in the left lower lobe. Given the lower lobe distribution this may represent aspiration. The re is interval improvement of right lower lobe infiltrate. No new infiltrates are identified. The costophrenic angles are sharp. IMPRESSION: 1. tracheostomy tube remains good position. 2. Persistent left lower lung infiltrate / pneumonia. 3. Improving right lower lobe infiltrate. 4. Ventriculoperitoneal shunt RPTAT: HH .Edy Hooper MD, Date Time Electronically viewed and signed by .Edy Hooper MD, on 10/25/2016 18:30 .W/
[2016-10-25] MEDS: ATORVASTATIN 40 MG TAB GTB SCH (20:46)
[2016-10-25] MEDS: INSULIN GLARGINE [LANtus] 3 ML PEN SC SCH (21:12)
[2016-10-26] VITALS (25 sets, daily range): BP systolic 130–142; BP diastolic 71–75; PULSE 57–66; RESP 14–20
[2016-10-26] MEDS: METOCLOPRAMIDE 10 MG INJ IV SCH ×4 (00:39→17:48)
[2016-10-26] MEDS: LANSOPRAZOLE 30 MG CAP GTB SCH ×2 (05:54→17:48)
[2016-10-26 05:59] LABS: ADD SCAN DIFF NO
[2016-10-26] MEDS: INSULIN ASPART [NOVOLOG] 3 ML PEN SC SCH ×4 (06:00→17:44)
[2016-10-26 06:12] LABS: ABNORMAL IP MESSAGE 1; BASOPHIL # 0.1 10^3/ul (0.0-0.1); BASOPHILS % 0.9 % (0.0-2.0); EOSINOPHILS # 0.1 10^3/ul (0.0-0.5); HEMOGLOBIN 9.3 g/dl (14.0-18.0); LYMPHOCYTES # 0.5 10^3/ul (0.8-2.9); LYMPHOCYTES % 8.5 % (15.0-51.0); MEAN CORPUSCULAR HEMOGLOBIN 30.2 pg (29.0-33.0); MEAN CORPUSCULAR HGB CONC 33.2 g/dl (32.0-37.0); MEAN CORPUSCULAR VOLUME 90.9 fl (82.0-101.0); MONOCYTE # 0.6 10^3/ul (0.3-0.9); MONOCYTES % 9.4 % (0.0-11.0); NEUTROPHILS % 78.1 % (39.0-77.0); PLATELET COUNT 293 10^3/UL (140-415); RED BLOOD COUNT 3.08 10^6/ul (4.70-6.10); RED CELL DISTRIBUTION WIDTH 15.2 % (11.5-14.5); WHITE BLOOD COUNT 6.4 10^3/ul (4.8-10.8)
[2016-10-26 06:15] LABS: INR 1.21; PROTIME 15.4 Sec (12.2-14.2); PT RATIO 1.2
[2016-10-26 06:16] LABS: PARTIAL THROMBOPLASTIN TIME 46.6 Sec (25.0-35.0)
[2016-10-26 06:26] LABS: ALBUMIN 2.6 g/dl (3.3-4.9)
[2016-10-26 06:27] LABS: POTASSIUM 3.3 mmol/L (3.5-5.1)
[2016-10-26 06:28] LABS: MAGNESIUM 1.8 mg/dl (1.7-2.5); PHOSPHORUS 3.9 mg/dl (2.5-4.9)
[2016-10-26 06:29] LABS: ALBUMIN/GLOBULIN RATIO 0.96; BILIRUBIN,INDIRECT 0.1 mg/dl (0-1.1); BILIRUBIN,TOTAL 0.1 mg/dl (0.2-1.3); CREATININE 0.28 mg/dl (0.61-1.24); TOTAL PROTEIN 5.3 g/dl (6.1-8.1)
[2016-10-26 06:30] LABS: CALCIUM 8.3 mg/dl (8.4-10.2)
[2016-10-26] MEDS: FERROUS SULFATE 60 MG/ML 5ML CUP GTB SCH (09:15)
[2016-10-26] MEDS: NYSTATIN SUSP 5 ML CUP GTB SCH ×4 (09:15→21:26)
[2016-10-26] MEDS: LACTULOSE 30ML CUP GTB SCH ×2 (09:15→21:24)
[2016-10-26] MEDS: POTASSIUM CHLORIDE 20 MEQ POWDER FOR ORAL SOLN GTB SCH (09:16)
[2016-10-26] MEDS: LEVETIRACETAM IV 1,000 MG in SOD CHLORIDE 0.9% 100 ML IVPB SCH (09:16)
[2016-10-26] MEDS: CARBIDOPA/LEVODOPA (25/100) TAB GTB SCH ×3 (09:16→21:34)
[2016-10-26] MEDS: MULTIVITAMINS THERAPEUTIC TAB PO SCH (09:16)
[2016-10-26] MEDS: DEMECLOCYCLINE 150 MG TAB GTB SCH ×2 (09:16→21:23)
[2016-10-26] MEDS: LACTOBACILLUS CHEW TAB GTB SCH ×2 (09:16→21:27)
[2016-10-26] MEDS: METOPROLOL 25 MG TAB GTB SCH ×2 (09:17→21:00)
[2016-10-26] MEDS: LIDOCAINE 5% 35 GM OINT TOP SCH ×3 (09:17→21:28)
[2016-10-26] MEDS: BENAZEPRIL 10 MG TAB GTB SCH (09:17)
--- NOTE | 2016-10-26 14:15 | CONS ---
Date/Time of Note Date/Time of Note DATE: 10/26/16 TIME: 14:13 Assessment/Plan Assessment/Plan Additional Assessment/Plan Ventilator settings; AC of 14, tidal volume 500, PEEP of 5, 30% FiO2. Assessment and recommendations; 1. Patient admitted with UTI and sepsis as well as pneumonia with marked clinical improvement. 2. 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 3. Stable seizure disorder. 4. History of prior craniotomy. 5. Severe anoxic enthesopathy. Patient remains ventilator dependent. 6. Hyponatremia with interval improvement. Next Continue current treatment. X-ray was reviewed from yesterday which is essentially unremarkable. This time change Keppra to enteral form 1 g twice daily. Patient awaiting transfer to rehab facility. Prognosis remains poor. Consultation Date/Type/Reason Admit Date/Time Oct 10, 2016 at 13:53 Initial Consult Date 10/10/16 Type of Consultation: Pulmonary Referring Provider: MADDY HOPKINS MD 24 HR Interval Summary Free Text/Dictation Patient's condition remains stable. Has remained hemodynamically stable. No seizure activity noted. Remains ventilator dependent. General examination; middle-aged man, on ventilator via tracheostomy currently in no distress. Exam/Review of Systems Vital Signs Vitals Vital Signs Date Time Temp Pulse Resp B/P Pulse Ox O2 Delivery O2 Flow Rate FiO2 10/26/16 12:00 59 10/26/16 11:37 98.5 20 130/73 100 10/26/16 09:00 30 Intake and Output 10/25/16 10/25/16 10/26/16 15:00 23:00 07:00 Intake Total 520 ml 440 ml Output Total 500 ml 300 ml Balance 20 ml 140 ml Exam HEENT examination; supple neck, no JVD. No lymphadenopathy. Midline trachea. No thyromegaly. Pharynx is clear. Good dentition. Tracheostomy in place with clean insertion site. There is a well-healed frontal scar. Chest examination; clear to auscultation bilaterally. S1-S2 audible, no murmurs. Regular rhythm. Abdomen examination; soft, nondistended. G-tube in place. Bowel sounds audible. No organomegaly. Extremity examination; no peripheral edema. 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 Results Result Diagram: 10/26/16 0535 10/26/16 0535 Results 24 hrs Laboratory Tests Test 10/25/16 18:28 10/25/16 21:01 10/26/16 00:42 10/26/16 05:35 Bedside Glucose 90 85 91 Activated Partial Thromboplast Time 46.6 H Alanine Aminotransferase (ALT/SGPT) 30 Albumin 2.6 L Albumin/Globulin Ratio 0.96 Alkaline Phosphatase 119 Anion Gap 11 Aspartate Amino Transf (AST/SGOT) 41 Basophils # 0.1 Basophils % 0.9 Blood Urea Nitrogen 13 Calcium Level 8.3 L Carbon Dioxide Level 27 Chloride Level 103 Creatinine 0.28 L Direct Bilirubin 0.00 Eosinophils # 0.1 Eosinophils % 2.0 Globulin 2.70 Glucose Level 81 Hematocrit 28.0 L Hemoglobin 9.3 L INR International Normalized Ratio 1.21 Indirect Bilirubin 0.1 Lymphocytes # 0.5 L Lymphocytes % 8.5 L Magnesium Level 1.8 Mean Corpuscular Hemoglobin 30.2 Mean Corpuscular Hemoglobin Concent 33.2 Mean Corpuscular Volume 90.9 Mean Platelet Volume 9.0 Monocytes # 0.6 Monocytes % 9.4 Neutrophils # 5.0 Neutrophils % 78.1 H Nucleated Red Blood Cells # 0.0 Nucleated Red Blood Cells % 0.0 Phosphorus Level 3.9 Platelet Count 293 Potassium Level 3.3 L Prothrombin Time 15.4 H Prothrombin Time Ratio 1.2 Red Blood Count 3.08 L Red Cell Distribution Width 15.2 H Sodium Level 138 Total Bilirubin 0.1 L Total Protein 5.3 L White Blood Count 6.4 Test 10/26/16 06:03 10/26/16 12:15 Bedside Glucose 81 74 Medications Medications Current Medications Ondansetron HCl (Zofran Inj) 4 mg Q6H PRN IV NAUSEA AND/OR VOMITING Last administered on 10/16/16 09:08; Admin Dose 4 MG; Start 10/10/16 at 14:00 Nitroglycerin (Nitroglycerin (Sl Tab) 0.4 Mg) 1 tab Q5M PRN SL CHEST PAIN; Start 10/10/16 at 14:00 Acetaminophen (Tylenol Supp) 650 mg Q4H PRN [place] PAIN LEVEL 1-3 OR FEVER Last administered on 10/16/16 22:11; Admin Dose 650 MG; Start 10/10/16 at 14:00 Morphine Sulfate (morphine) 2 mg Q4H PRN IV PAIN LEVEL 7-10; Start 10/10/16 at 14:00 Lorazepam (Ativan) 1 mg Q2H PRN IV ANXIETY Last administered on 10/15/16 20:27 ; Admin Dose 1 MG; Start 10/10/16 at 14:00 Docusate Sodium 100 mg 100 mg Q12H PRN PO CONSTIPATION; Start 10/10/16 at 14:00 Levetiracetam/ Sodium Chloride (Keppra Iv/NS) 110 ml @ 440 mls/hr Q12 IVPB Last administered on 10/26/16 09:16; Admin Dose 440 MLS/HR; Start 10/10/16 at 14:00 Hydralazine HCl (Apresoline) 10 mg Q6H PRN IV ELEVATED BLOOD PRESSURE Last administered on 10/24/16 11:31; Admin Dose 10 MG; Start 10/10/16 at 19:00 Atorvastatin Calcium (Lipitor) 40 mg QHS GTB Last administered on 10/25/16 20: 46; Admin Dose 40 MG; Start 10/15/16 at 21:00 Benazepril HCl (Lotensin) 10 mg DAILY GTB Last administered on 10/26/16 09:17 ; Admin Dose 10 MG; Start 10/15/16 at 12:00 Docusate Sodium (Colace Liquid Cup) 200 mg DAILY PRN GTB CONSTIPATION Last administered on 10/16/16 08:44; Admin Dose 200 MG; Start 10/15/16 at 12:00 Ferrous Sulfate (Feosol Liquid Cup) 330 mg DAILY GTB Last administered on 09:15; Admin Dose 330 MG; Start 10/16/16 at 09:00 Hydralazine HCl (Apresoline) 25 mg Q6H PRN GTB ELEVATED BLOOD PRESSURE; Start 10/15/16 at 12:00 Mineral Oil (Fleet Mineral Oil Enema) 133 ml DAILY PRN [place] CONSTIPATION Last administered on 10/16/16 03:54; Admin Dose 133 ML; Start 10/15/16 at 12:00 Multivitamins Therapeutic (Theragran) 1 tab DAILY PO Last administered on 09:16; Admin Dose 1 TAB; Start 10/15/16 at 12:00 Potassium Chloride (Potassium Chloride Pwd/Soln) 40 meq DAILY GTB Last administered on 10/26/16 09:16; Admin Dose 40 MEQ; Start 10/16/16 at 09:00 Miscellaneous Information 1 ea NOTE XX ; Start 10/15/16 at 21:30 Glucose (Glutose) 15 gm Q15M PRN PO DECREASED GLUCOSE; Start 10/15/16 at 21:30 Glucose (Glutose) 22.5 gm Q15M PRN PO DECREASED GLUCOSE; Start 10/15/16 at 21: 30 Dextrose (D50w Syringe) 25 ml Q15M PRN IV DECREASED GLUCOSE Last administered on 10/16/16 16:31; Admin Dose 25 ML; Start 10/15/16 at 21:30 Dextrose (D50w Syringe) 50 ml Q15M PRN IV DECREASED GLUCOSE; Start 10/15/16 at 21:30 Glucagon (Glucagen) 1 mg Q15M PRN IM DECREASED GLUCOSE; Start 10/15/16 at 21:30 Glucose (Glutose) 15 gm Q15M PRN BUCCAL DECREASED GLUCOSE; Start 10/15/16 at 21 :30 Metoclopramide HCl (Reglan) 10 mg Q6 IV Last administered on 10/26/16 12:14; Admin Dose 10 MG; Start 10/16/16 at 18:00 Lactulose (Enulose) 30 gm BID GTB Last administered on 10/26/16 09:15; Admin Dose 30 GM; Start 10/16/16 at 21:00 Lansoprazole (Prevacid) 30 mg BID@06,18 GTB Last administered on 10/26/16 05: 54; Admin Dose 30 MG; Start 10/17/16 at 06:00 Carbidopa/Levodopa (Sinemet (25/ 100)) 1 tab TID GTB Last administered on 12:14; Admin Dose 1 TAB; Start 10/16/16 at 21:00 Lidocaine (Lidocaine 5% Oint) 1 applic TID TOP Last administered on 10/26/16 12:17; Admin Dose 1 APPLIC; Start 10/16/16 at 21:00 Metoprolol Tartrate (Lopressor) 12.5 mg BID GTB Last administered on 10/26/16 09:17; Admin Dose 12.5 MG; Start 10/16/16 at 21:00 Insulin Glargine (Lantus) 24 unit DAILY@20 SC Last administered on 10/25/16 21 :12; Admin Dose 24 UNIT; Start 10/20/16 at 20:00 Demeclocycline HCl (Declomycin) 300 mg BID GTB Last administered on 10/26/16 09:16; Admin Dose 300 MG; Start 10/23/16 at 21:00 Insulin Aspart (Novolog Insulin Pen) NOVOLOG *MILD* ALGORI... Q6 SC Last administered on 10/25/16 00:39; Admin Dose 1 UNIT; Start 10/24/16 at 18:00 Lactobacillus Acidoph/Bulgaricus (Floranex) 2 tab BID GTB Last administered on 10/26/16 09:16; Admin Dose 2 TAB; Start 10/24/16 at 21:00 Nystatin (Nystatin Susp) 5 ml QID GTB Last administered on 10/26/16 12:14; Admin Dose 5 ML; Start 10/24/16 at 21:00 JUANA DE LEÓN Oct 26, 2016 14:15
[2016-10-26] MEDS: DEXTROSE 50% 50 ML SYRINGE IV PRN (17:48)
[2016-10-26] MEDS ORDERED: POTASSIUM CHLORIDE 20 MEQ in SOD CHLORIDE 0.9% 100 ML IVPB ONE (18:00)
--- NOTE | 2016-10-26 18:02 | CONS ---
Date/Time of Note Date/Time of Note DATE: 10/26/16 TIME: 18:01 Assessment/Plan Assessment/Plan Additional Assessment/Plan 1. Severe hyponatremia with a sodium of 119 on admission with seizures, possibly acute on chronic hyponatremia versus acute severe hyponatremia.- pt went from hyponatremia to hypernatremia with treatment with 3% saline and one dose of tolvaptan - then Improved to normal today wtih D5W IVF and DDAVP 0.2mg PO x2 dose 10/15/16- on 10/16/16 again Na dropped to 119 s/p Tovlaptan 15 mg PO x1 on 10/18/16-now Na 143 2. Seizures secondary to severe hyponatremia. 3. Sepsis secondary to bilateral pneumonia. 4. Ventilator-dependent respiratory failure, status post tracheostomy, on vent. 5. History of a previous brain tumor, had surgery. Currently, status post ventriculoperitoneal shunt in place. 6. History of a previous cerebellar cerebrovascular accident. PLAN: pt received 3 % saline and tolvaptan one dose on 10/10 and 10/11- went into polyuria, Na went from hyponatremia to hypernatremia- now improved to normal with D5W IVF and 2 dose of DDAVP 0.2mg- again today 10/16- na dropped from 140 to 122- given 3% hypertonic saline for another 12 hr - did not respond well, Na again dropped to 119- One dose of tolvaptan 15 mg X 1 10/18/16- Na dropped to 130 10/22/2016- tolvaptan 15 gram po x 1 dose on 09/21/16- now Na normal, - will decrease demeclocycline to 150mg BID onTube feeding with diabeto source started on Demeclocycline 300mg BID to avoid use of tolvaptan monitor Na, pt has acute on chronic hyponatremia ventilator care as per pulmonary will follow up Consultation Date/Type/Reason Admit Date/Time Oct 10, 2016 at 13:53 Initial Consult Date 10/10/16 Type of Consultation: NEPHROLOGY Referring Provider: MADDY HOPKINS MD 24 HR Interval Summary Free Text/Dictation Na 138,K 3.3 Exam/Review of Systems Vital Signs Vitals Vital Signs Date Time Temp Pulse Resp B/P Pulse Ox O2 Delivery O2 Flow Rate FiO2 10/26/16 17:08 97.8 58 14 130/71 98 10/26/16 17:00 30 Intake and Output 10/25/16 10/25/16 10/26/16 15:00 23:00 07:00 Intake Total 520 ml 440 ml Output Total 500 ml 300 ml Balance 20 ml 140 ml Exam HEENT: Tracheostomy site is clear. LUNGS: Bilateral coarse breath sounds with bilateral basilar rales present and lower lobe rhonchi present. HEART: S1, S2, tachycardia, no murmur. ABDOMEN: Soft. G-tube in place. EXTREMITIES: No clubbing, cyanosis, or edema. The patient is very debilitated. , + steve catheter in place Results Result Diagram: 10/26/16 0535 10/26/16 0535 Results 24 hrs Laboratory Tests Test 10/25/16 18:28 10/25/16 21:01 10/26/16 00:42 10/26/16 05:35 Bedside Glucose 90 85 91 Activated Partial Thromboplast Time 46.6 H Alanine Aminotransferase (ALT/SGPT) 30 Albumin 2.6 L Albumin/Globulin Ratio 0.96 Alkaline Phosphatase 119 Anion Gap 11 Aspartate Amino Transf (AST/SGOT) 41 Basophils # 0.1 Basophils % 0.9 Blood Urea Nitrogen 13 Calcium Level 8.3 L Carbon Dioxide Level 27 Chloride Level 103 Creatinine 0.28 L Direct Bilirubin 0.00 Eosinophils # 0.1 Eosinophils % 2.0 Globulin 2.70 Glucose Level 81 Hematocrit 28.0 L Hemoglobin 9.3 L INR International Normalized Ratio 1.21 Indirect Bilirubin 0.1 Lymphocytes # 0.5 L Lymphocytes % 8.5 L Magnesium Level 1.8 Mean Corpuscular Hemoglobin 30.2 Mean Corpuscular Hemoglobin Concent 33.2 Mean Corpuscular Volume 90.9 Mean Platelet Volume 9.0 Monocytes # 0.6 Monocytes % 9.4 Neutrophils # 5.0 Neutrophils % 78.1 H Nucleated Red Blood Cells # 0.0 Nucleated Red Blood Cells % 0.0 Phosphorus Level 3.9 Platelet Count 293 Potassium Level 3.3 L Prothrombin Time 15.4 H Prothrombin Time Ratio 1.2 Red Blood Count 3.08 L Red Cell Distribution Width 15.2 H Sodium Level 138 Total Bilirubin 0.1 L Total Protein 5.3 L White Blood Count 6.4 Test 10/26/16 06:03 10/26/16 12:15 10/26/16 17:43 Bedside Glucose 81 74 67 L Medications Medications Current Medications Ondansetron HCl (Zofran Inj) 4 mg Q6H PRN IV NAUSEA AND/OR VOMITING Last administered on 10/16/16 09:08; Admin Dose 4 MG; Start 10/10/16 at 14:00 Nitroglycerin (Nitroglycerin (Sl Tab) 0.4 Mg) 1 tab Q5M PRN SL CHEST PAIN; Start 10/10/16 at 14:00 Acetaminophen (Tylenol Supp) 650 mg Q4H PRN [place] PAIN LEVEL 1-3 OR FEVER Last administered on 10/16/16 22:11; Admin Dose 650 MG; Start 10/10/16 at 14:00 Morphine Sulfate (morphine) 2 mg Q4H PRN IV PAIN LEVEL 7-10; Start 10/10/16 at 14:00 Lorazepam (Ativan) 1 mg Q2H PRN IV ANXIETY Last administered on 10/15/16 20:27 ; Admin Dose 1 MG; Start 10/10/16 at 14:00 Docusate Sodium (Colace) 100 mg Q12H PRN PO CONSTIPATION; Start 10/10/16 at 14: 00 Hydralazine HCl (Apresoline) 10 mg Q6H PRN IV ELEVATED BLOOD PRESSURE Last administered on 10/24/16 11:31; Admin Dose 10 MG; Start 10/10/16 at 19:00 Atorvastatin Calcium (Lipitor) 40 mg QHS GTB Last administered on 10/25/16 20: 46; Admin Dose 40 MG; Start 10/15/16 at 21:00 Benazepril HCl (Lotensin) 10 mg DAILY GTB Last administered on 10/26/16 09:17 ; Admin Dose 10 MG; Start 10/15/16 at 12:00 Docusate Sodium (Colace Liquid Cup) 200 mg DAILY PRN GTB CONSTIPATION Last administered on 10/16/16 08:44; Admin Dose 200 MG; Start 10/15/16 at 12:00 Ferrous Sulfate (Feosol Liquid Cup) 330 mg DAILY GTB Last administered on 09:15; Admin Dose 330 MG; Start 10/16/16 at 09:00 Hydralazine HCl (Apresoline) 25 mg Q6H PRN GTB ELEVATED BLOOD PRESSURE; Start 10/15/16 at 12:00 Mineral Oil (Fleet Mineral Oil Enema) 133 ml DAILY PRN [place] CONSTIPATION Last administered on 10/16/16 03:54; Admin Dose 133 ML; Start 10/15/16 at 12:00 Multivitamins Therapeutic (Theragran) 1 tab DAILY PO Last administered on 09:16; Admin Dose 1 TAB; Start 10/15/16 at 12:00 Potassium Chloride (Potassium Chloride Pwd/Soln) 40 meq DAILY GTB Last administered on 10/26/16 09:16; Admin Dose 40 MEQ; Start 10/16/16 at 09:00 Miscellaneous Information 1 ea NOTE XX ; Start 10/15/16 at 21:30 Glucose (Glutose) 15 gm Q15M PRN PO DECREASED GLUCOSE; Start 10/15/16 at 21:30 Glucose (Glutose) 22.5 gm Q15M PRN PO DECREASED GLUCOSE; Start 10/15/16 at 21: 30 Dextrose (D50w Syringe) 25 ml Q15M PRN IV DECREASED GLUCOSE Last administered on 10/26/16 17:48; Admin Dose 25 ML; Start 10/15/16 at 21:30 Dextrose (D50w Syringe) 50 ml Q15M PRN IV DECREASED GLUCOSE; Start 10/15/16 at 21:30 Glucagon (Glucagen) 1 mg Q15M PRN IM DECREASED GLUCOSE; Start 10/15/16 at 21:30 Glucose (Glutose) 15 gm Q15M PRN BUCCAL DECREASED GLUCOSE; Start 10/15/16 at 21 :30 Metoclopramide HCl (Reglan) 10 mg Q6 IV Last administered on 10/26/16 17:48; Admin Dose 10 MG; Start 10/16/16 at 18:00 Lactulose (Enulose) 30 gm BID GTB Last administered on 10/26/16 09:15; Admin Dose 30 GM; Start 10/16/16 at 21:00 Lansoprazole (Prevacid) 30 mg BID@18 GTB Last administered on 10/26/16 17: 48; Admin Dose 30 MG; Start 10/17/16 at 06:00 Carbidopa/Levodopa (Sinemet (25/ 100)) 1 tab TID GTB Last administered on 12:14; Admin Dose 1 TAB; Start 10/16/16 at 21:00 Lidocaine (Lidocaine 5% Oint) 1 applic TID TOP Last administered on 10/26/16 12:17; Admin Dose 1 APPLIC; Start 10/16/16 at 21:00 Metoprolol Tartrate (Lopressor) 12.5 mg BID GTB Last administered on 10/26/16 09:17; Admin Dose 12.5 MG; Start 10/16/16 at 21:00 Insulin Glargine (Lantus) 24 unit DAILY@20 SC Last administered on 10/25/16 21 :12; Admin Dose 24 UNIT; Start 10/20/16 at 20:00 Demeclocycline HCl (Declomycin) 300 mg BID GTB Last administered on 10/26/16 09:16; Admin Dose 300 MG; Start 10/23/16 at 21:00 Insulin Aspart (Novolog Insulin Pen) NOVOLOG *MILD* ALGORI... Q6 SC Last administered on 10/25/16 00:39; Admin Dose 1 UNIT; Start 10/24/16 at 18:00 Lactobacillus Acidoph/Bulgaricus (Floranex) 2 tab BID GTB Last administered on 10/26/16 09:16; Admin Dose 2 TAB; Start 10/24/16 at 21:00 Nystatin (Nystatin Susp) 5 ml QID GTB Last administered on 10/26/16 17:47; Admin Dose 5 ML; Start 10/24/16 at 21:00 Levetiracetam (Keppra) 1,000 mg BID PO ; Start 10/26/16 at 21:00 LISSA PARK MD Oct 26, 2016 18:02
--- NOTE | 2016-10-26 18:17 | PN ---
Date/Time of Note Date/Time of Note DATE: 10/26/16 TIME: 18:17 Assessment/Plan VTE Prophylaxis VTE Prophylaxis Intervention: SCD's Lines/Catheters IV [facility] Urinary Cath still in place: Yes Reason Cath still needed: urinary retention Assessment/Plan Chief Complaint/Hosp Course ASSESSMENT AND PLAN: - Leukocytosis, s/p emesis, continue empiric abx for possible aspiration. Dr. Mas is following gastroenterology consultation. - Sepsis secondary to urinary tract infection and healthcare-acquired pneumonia. Patient is followed by Dr. Sales in infectious disease consultation. Continue antibiotics per ID. - Ventilator dependent respiratory failure. Dr. Unger is following from pulmonology standpoint. Continue bronchodilators and ventilatory support. 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 - Seizure disorder. Continue Keppra. - Hypertension, continue benazepril and hydralazine. - Hyponatremia 2 SIADH. Patient is followed by Dr. Tovar in nephrology consultation. - History of cerebrovascular accident. Continue sequential compression device for deep venous thrombosis prophylaxis and Pepcid for peptic ulcer disease prophylaxis. Patient's condition and plan of care discussed with patient's daughter at the bedside. All questions answered, including MRI results. Further recommendations based on clinical course. Plan of care discussed with Dr. Desir. Problems: Subjective 24 Hr Interval Summary Free Text/Dictation Patient's tolerates a G-tube feeding at a low rate of 20 cc/h, no nausea no vomiting per nurse, remains afebrile Exam/Review of Systems Vital Signs Vitals Vital Signs Date Time Temp Pulse Resp B/P Pulse Ox O2 Delivery O2 Flow Rate FiO2 10/26/16 17:08 97.8 58 14 130/71 98 10/26/16 17:00 30 Intake and Output 10/25/16 10/25/16 10/26/16 15:00 23:00 07:00 Intake Total 520 ml 440 ml Output Total 500 ml 300 ml Balance 20 ml 140 ml Exam GENERAL: This is a well-developed male on ventilator support, does not respond to verbal internal stimuli. HEENT: Head is atraumatic, normocephalic. Pupils equal, round, reactive to light and accommodation. NECK: Supple. Tracheostomy at the base of the neck. CHEST: Scattered rhonchi bilaterally, slightly diminished at the bases. No wheezes noted. HEART: Normal S1, S2. No murmurs, gallops, clicks, rubs noted. ABDOMEN: Protuberant, soft, nondistended, nontender. Bowel sounds present. EXTREMITIES: Mild edema. There is no clubbing or cyanosis. Pulses equal bilaterally 2+. SKIN: There is no rash, petechiae noted. NEUROLOGIC: The patient is obtunded. Results Result Diagram: 10/26/16 0535 10/26/16 0535 Results 24 hrs Laboratory Tests Test 10/25/16 18:28 10/25/16 21:01 10/26/16 00:42 10/26/16 05:35 Bedside Glucose 90 85 91 Activated Partial Thromboplast Time 46.6 H Alanine Aminotransferase (ALT/SGPT) 30 Albumin 2.6 L Albumin/Globulin Ratio 0.96 Alkaline Phosphatase 119 Anion Gap 11 Aspartate Amino Transf (AST/SGOT) 41 Basophils # 0.1 Basophils % 0.9 Blood Urea Nitrogen 13 Calcium Level 8.3 L Carbon Dioxide Level 27 Chloride Level 103 Creatinine 0.28 L Direct Bilirubin 0.00 Eosinophils # 0.1 Eosinophils % 2.0 Globulin 2.70 Glucose Level 81 Hematocrit 28.0 L Hemoglobin 9.3 L INR International Normalized Ratio 1.21 Indirect Bilirubin 0.1 Lymphocytes # 0.5 L Lymphocytes % 8.5 L Magnesium Level 1.8 Mean Corpuscular Hemoglobin 30.2 Mean Corpuscular Hemoglobin Concent 33.2 Mean Corpuscular Volume 90.9 Mean Platelet Volume 9.0 Monocytes # 0.6 Monocytes % 9.4 Neutrophils # 5.0 Neutrophils % 78.1 H Nucleated Red Blood Cells # 0.0 Nucleated Red Blood Cells % 0.0 Phosphorus Level 3.9 Platelet Count 293 Potassium Level 3.3 L Prothrombin Time 15.4 H Prothrombin Time Ratio 1.2 Red Blood Count 3.08 L Red Cell Distribution Width 15.2 H Sodium Level 138 Total Bilirubin 0.1 L Total Protein 5.3 L White Blood Count 6.4 Test 10/26/16 06:03 10/26/16 12:15 10/26/16 17:43 10/26/16 17:58 Bedside Glucose 81 74 67 L 140 Medications Medications Current Medications Ondansetron HCl (Zofran Inj) 4 mg Q6H PRN IV NAUSEA AND/OR VOMITING Last administered on 10/16/16 09:08; Admin Dose 4 MG; Start 10/10/16 at 14:00 Nitroglycerin (Nitroglycerin (Sl Tab) 0.4 Mg) 1 tab Q5M PRN SL CHEST PAIN; Start 10/10/16 at 14:00 Acetaminophen (Tylenol Supp) 650 mg Q4H PRN [place] PAIN LEVEL 1-3 OR FEVER Last administered on 10/16/16 22:11; Admin Dose 650 MG; Start 10/10/16 at 14:00 Morphine Sulfate (morphine) 2 mg Q4H PRN IV PAIN LEVEL 7-10; Start 10/10/16 at 14:00 Lorazepam (Ativan) 1 mg Q2H PRN IV ANXIETY Last administered on 10/15/16 20:27 ; Admin Dose 1 MG; Start 10/10/16 at 14:00 Docusate Sodium (Colace) 100 mg Q12H PRN PO CONSTIPATION; Start 10/10/16 at 14: 00 Hydralazine HCl (Apresoline) 10 mg Q6H PRN IV ELEVATED BLOOD PRESSURE Last administered on 10/24/16 11:31; Admin Dose 10 MG; Start 10/10/16 at 19:00 Atorvastatin Calcium (Lipitor) 40 mg QHS GTB Last administered on 10/25/16 20: 46; Admin Dose 40 MG; Start 10/15/16 at 21:00 Benazepril HCl (Lotensin) 10 mg DAILY GTB Last administered on 10/26/16 09:17 ; Admin Dose 10 MG; Start 10/15/16 at 12:00 Docusate Sodium (Colace Liquid Cup) 200 mg DAILY PRN GTB CONSTIPATION Last administered on 10/16/16 08:44; Admin Dose 200 MG; Start 10/15/16 at 12:00 Ferrous Sulfate (Feosol Liquid Cup) 330 mg DAILY GTB Last administered on 09:15; Admin Dose 330 MG; Start 10/16/16 at 09:00 Hydralazine HCl (Apresoline) 25 mg Q6H PRN GTB ELEVATED BLOOD PRESSURE; Start 10/15/16 at 12:00 Mineral Oil (Fleet Mineral Oil Enema) 133 ml DAILY PRN [place] CONSTIPATION Last administered on 10/16/16 03:54; Admin Dose 133 ML; Start 10/15/16 at 12:00 Multivitamins Therapeutic (Theragran) 1 tab DAILY PO Last administered on 09:16; Admin Dose 1 TAB; Start 10/15/16 at 12:00 Potassium Chloride (Potassium Chloride Pwd/Soln) 40 meq DAILY GTB Last administered on 10/26/16 09:16; Admin Dose 40 MEQ; Start 10/16/16 at 09:00 Miscellaneous Information 1 ea NOTE XX ; Start 10/15/16 at 21:30 Glucose (Glutose) 15 gm Q15M PRN PO DECREASED GLUCOSE; Start 10/15/16 at 21:30 Glucose (Glutose) 22.5 gm Q15M PRN PO DECREASED GLUCOSE; Start 10/15/16 at 21: 30 Dextrose (D50w Syringe) 25 ml Q15M PRN IV DECREASED GLUCOSE Last administered on 10/26/16 17:48; Admin Dose 25 ML; Start 10/15/16 at 21:30 Dextrose (D50w Syringe) 50 ml Q15M PRN IV DECREASED GLUCOSE; Start 10/15/16 at 21:30 Glucagon (Glucagen) 1 mg Q15M PRN IM DECREASED GLUCOSE; Start 10/15/16 at 21:30 Glucose (Glutose) 15 gm Q15M PRN BUCCAL DECREASED GLUCOSE; Start 10/15/16 at 21 :30 Metoclopramide HCl (Reglan) 10 mg Q6 IV Last administered on 10/26/16 17:48; Admin Dose 10 MG; Start 10/16/16 at 18:00 Lactulose (Enulose) 30 gm BID GTB Last administered on 10/26/16 09:15; Admin Dose 30 GM; Start 10/16/16 at 21:00 Lansoprazole (Prevacid) 30 mg BID@,18 GTB Last administered on 10/26/16 17: 48; Admin Dose 30 MG; Start 10/17/16 at 06:00 Carbidopa/Levodopa (Sinemet (25/ 100)) 1 tab TID GTB Last administered on 12:14; Admin Dose 1 TAB; Start 10/16/16 at 21:00 Lidocaine (Lidocaine 5% Oint) 1 applic TID TOP Last administered on 10/26/16 12:17; Admin Dose 1 APPLIC; Start 10/16/16 at 21:00 Metoprolol Tartrate (Lopressor) 12.5 mg BID GTB Last administered on 10/26/16 09:17; Admin Dose 12.5 MG; Start 10/16/16 at 21:00 Insulin Glargine (Lantus) 24 unit DAILY@20 SC Last administered on 10/25/16 21 :12; Admin Dose 24 UNIT; Start 10/20/16 at 20:00 Insulin Aspart (Novolog Insulin Pen) NOVOLOG *MILD* ALGORI... Q6 SC Last administered on 10/25/16 00:39; Admin Dose 1 UNIT; Start 10/24/16 at 18:00 Lactobacillus Acidoph/Bulgaricus (Floranex) 2 tab BID GTB Last administered on 10/26/16 09:16; Admin Dose 2 TAB; Start 10/24/16 at 21:00 Nystatin (Nystatin Susp) 5 ml QID GTB Last administered on 10/26/16 17:47; Admin Dose 5 ML; Start 10/24/16 at 21:00 Levetiracetam 1000 mg 1,000 mg BID PO ; Start 10/26/16 at 21:00 Potassium Chloride/Sodium Chloride (KCl/NS) 110 ml @ 55 mls/hr ONCE ONCE IVPB ; Start 10/26/16 at 18:00; Stop 10/26/16 at 19:59; Status UNV Demeclocycline HCl (Declomycin) 150 mg BID GTB ; Start 10/26/16 at 21:00; Status UNV ALTHAE ACOSTA Oct 26, 2016 18:17
[2016-10-26] MEDS: INSULIN GLARGINE [LANtus] 3 ML PEN SC SCH (21:21)
[2016-10-26] MEDS: ATORVASTATIN 40 MG TAB GTB SCH (21:24)
[2016-10-26] MEDS: LEVETIRACETAM 500 MG TAB PO SCH (21:27)
[2016-10-27] VITALS (24 sets, daily range): BP systolic 135–163; BP diastolic 66–81; PULSE 58–80; RESP 14–18
[2016-10-27] MEDS: METOCLOPRAMIDE 10 MG INJ IV SCH ×5 (00:27→23:14)
[2016-10-27] MEDS: LANSOPRAZOLE 30 MG CAP GTB SCH ×2 (05:03→17:23)
[2016-10-27] MEDS: INSULIN ASPART [NOVOLOG] 3 ML PEN SC SCH ×5 (05:09→23:13)
[2016-10-27 07:00] LABS: ADD SCAN DIFF NO
[2016-10-27 07:09] LABS: ABNORMAL IP MESSAGE 1; BASOPHIL # 0.1 10^3/ul (0.0-0.1); BASOPHILS % 0.8 % (0.0-2.0); EOSINOPHILS # 0.1 10^3/ul (0.0-0.5); EOSINOPHILS % 2.1 % (0.0-7.0); HEMATOCRIT 28.8 % (42.0-52.0); HEMOGLOBIN 9.5 g/dl (14.0-18.0); LYMPHOCYTES # 0.6 10^3/ul (0.8-2.9); LYMPHOCYTES % 8.6 % (15.0-51.0); MEAN CORPUSCULAR HEMOGLOBIN 30.4 pg (29.0-33.0); MEAN PLATELET VOLUME 9.1 fl (7.4-10.4); MONOCYTE # 0.7 10^3/ul (0.3-0.9); MONOCYTES % 10.2 % (0.0-11.0); NEUTROPHIL # 5.2 10^3/ul (1.6-7.5); NEUTROPHILS % 77.2 % (39.0-77.0); PLATELET COUNT 263 10^3/UL (140-415); RED BLOOD COUNT 3.13 10^6/ul (4.70-6.10); RED CELL DISTRIBUTION WIDTH 15.2 % (11.5-14.5); WHITE BLOOD COUNT 6.7 10^3/ul (4.8-10.8)
[2016-10-27 07:13] LABS: POTASSIUM 3.9 mmol/L (3.5-5.1)
[2016-10-27 07:15] LABS: CREATININE 0.29 mg/dl (0.61-1.24)
[2016-10-27 07:16] LABS: CALCIUM 8.2 mg/dl (8.4-10.2)
[2016-10-27] MEDS: NYSTATIN SUSP 5 ML CUP GTB SCH ×4 (08:55→20:53)
[2016-10-27] MEDS: LACTULOSE 30ML CUP GTB SCH ×2 (08:56→20:53)
[2016-10-27] MEDS: POTASSIUM CHLORIDE 20 MEQ POWDER FOR ORAL SOLN GTB SCH (08:56)
[2016-10-27] MEDS: FERROUS SULFATE 60 MG/ML 5ML CUP GTB SCH (08:56)
[2016-10-27] MEDS: CARBIDOPA/LEVODOPA (25/100) TAB GTB SCH ×3 (08:57→20:52)
[2016-10-27] MEDS: LACTOBACILLUS CHEW TAB GTB SCH ×2 (08:57→20:53)
[2016-10-27] MEDS: LEVETIRACETAM 500 MG TAB PO SCH ×2 (08:57→20:53)
[2016-10-27] MEDS: DEMECLOCYCLINE 150 MG TAB GTB SCH ×2 (08:57→20:53)
[2016-10-27] MEDS: METOPROLOL 25 MG TAB GTB SCH ×2 (08:57→20:53)
[2016-10-27] MEDS: MULTIVITAMINS THERAPEUTIC TAB PO SCH (08:58)
[2016-10-27] MEDS: LIDOCAINE 5% 35 GM OINT TOP SCH ×3 (08:58→20:53)
[2016-10-27] MEDS: BENAZEPRIL 10 MG TAB GTB SCH (08:59)
--- NOTE | 2016-10-27 09:08 | CONS ---
Date/Time of Note Date/Time of Note DATE: 10/27/16 TIME: 09:07 Assessment/Plan Assessment/Plan Additional Assessment/Plan 1. Severe hyponatremia with a sodium of 119 on admission with seizures, possibly acute on chronic hyponatremia versus acute severe hyponatremia.- pt went from hyponatremia to hypernatremia with treatment with 3% saline and one dose of tolvaptan - then Improved to normal today wtih D5W IVF and DDAVP 0.2mg PO x2 dose 10/15/16- on 10/16/16 again Na dropped to 119 s/p Tovlaptan 15 mg PO x1 on 10/18/16-now Na 143- decreased Demeclocycline to 150mg BID on 10/26/2016 2. Seizures secondary to severe hyponatremia. 3. Sepsis secondary to bilateral pneumonia. 4. Ventilator-dependent respiratory failure, status post tracheostomy, on vent. 5. History of a previous brain tumor, had surgery. Currently, status post ventriculoperitoneal shunt in place. 6. History of a previous cerebellar cerebrovascular accident. PLAN: pt received 3 % saline and tolvaptan one dose on 10/10 and 10/11- went into polyuria, Na went from hyponatremia to hypernatremia- now improved to normal with D5W IVF and 2 dose of DDAVP 0.2mg- again today 10/16- na dropped from 140 to 122- given 3% hypertonic saline for another 12 hr - did not respond well, Na again dropped to 119- One dose of tolvaptan 15 mg X 1 10/18/16- Na dropped to 130 10/22/2016- tolvaptan 15 gram po x 1 dose on 09/21/16- now Na normal, - will decreased demeclocycline to 150mg BID on 10/26/16 onTube feeding with diabeto source continue demeclocycline to avoid use of tolvaptan monitor Na, pt has acute on chronic hyponatremia ventilator care as per pulmonary will follow up Consultation Date/Type/Reason Admit Date/Time Oct 10, 2016 at 13:53 Initial Consult Date 10/10/16 Type of Consultation: NEPHROLOGY Referring Provider: MADDY HOPKINS MD 24 HR Interval Summary Free Text/Dictation no acute events, electrolytes stable,Na normal today Exam/Review of Systems Vital Signs Vitals Vital Signs Date Time Temp Pulse Resp B/P Pulse Ox O2 Delivery O2 Flow Rate FiO2 10/27/16 08:42 58 10/27/16 07:30 14 99 30 10/27/16 07:23 97.4 163/78 Intake and Output 10/26/16 10/26/16 10/27/16 14:59 22:59 06:59 Intake Total 440 ml 440 ml Output Total 400 ml 500 ml Balance 40 ml -60 ml Exam HEENT: Tracheostomy site is clear. LUNGS: Bilateral coarse breath sounds with bilateral basilar rales present and lower lobe rhonchi present. HEART: S1, S2, tachycardia, no murmur. ABDOMEN: Soft. G-tube in place. EXTREMITIES: No clubbing, cyanosis, or edema. The patient is very debilitated. , + steve catheter in place Results Result Diagram: 10/27/16 0605 10/27/16 0605 Results 24 hrs Laboratory Tests Test 10/26/16 12:15 10/26/16 17:43 10/26/16 17:58 10/26/16 21:19 Bedside Glucose 74 67 L 140 91 Test 10/27/16 00:00 10/27/16 05:09 10/27/16 06:05 10/27/16 07:24 Bedside Glucose 91 87 86 Anion Gap 11 Basophils # 0.1 Basophils % 0.8 Blood Urea Nitrogen 10 Calcium Level 8.2 L Carbon Dioxide Level 25 Chloride Level 104 Creatinine 0.29 L Eosinophils # 0.1 Eosinophils % 2.1 Glucose Level 86 Hematocrit 28.8 L Hemoglobin 9.5 L Lymphocytes # 0.6 L Lymphocytes % 8.6 L Mean Corpuscular Hemoglobin 30.4 Mean Corpuscular Hemoglobin Concent 33.0 Mean Corpuscular Volume 92.0 Mean Platelet Volume 9.1 Monocytes # 0.7 Monocytes % 10.2 Neutrophils # 5.2 Neutrophils % 77.2 H Nucleated Red Blood Cells # 0.0 Nucleated Red Blood Cells % 0.0 Platelet Count 263 Potassium Level 3.9 Red Blood Count 3.13 L Red Cell Distribution Width 15.2 H Sodium Level 136 White Blood Count 6.7 Medications Medications Current Medications Ondansetron HCl (Zofran Inj) 4 mg Q6H PRN IV NAUSEA AND/OR VOMITING Last administered on 10/16/16t 09:08; Admin Dose 4 MG; Start 10/10/16 at 14:00 Nitroglycerin (Nitroglycerin (Sl Tab) 0.4 Mg) 1 tab Q5M PRN SL CHEST PAIN; Start 10/10/16 at 14:00 Acetaminophen (Tylenol Supp) 650 mg Q4H PRN [place] PAIN LEVEL 1-3 OR FEVER Last administered on 10/16/16 22:11; Admin Dose 650 MG; Start 10/10/16 at 14:00 Morphine Sulfate (morphine) 2 mg Q4H PRN IV PAIN LEVEL 7-10; Start 10/10/16 at 14:00 Lorazepam (Ativan) 1 mg Q2H PRN IV ANXIETY Last administered on 10/15/16 20:27 ; Admin Dose 1 MG; Start 10/10/16 at 14:00 Docusate Sodium (Colace) 100 mg Q12H PRN PO CONSTIPATION; Start 10/10/16 at 14: 00 Hydralazine HCl (Apresoline) 10 mg Q6H PRN IV ELEVATED BLOOD PRESSURE Last administered on 10/24/16 11:31; Admin Dose 10 MG; Start 10/10/16 at 19:00 Atorvastatin Calcium (Lipitor) 40 mg QHS GTB Last administered on 10/26/16 21: 24; Admin Dose 40 MG; Start 10/15/16 at 21:00 Benazepril HCl (Lotensin) 10 mg DAILY GTB Last administered on 10/27/16 08:59 ; Admin Dose 10 MG; Start 10/15/16 at 12:00 Docusate Sodium (Colace Liquid Cup) 200 mg DAILY PRN GTB CONSTIPATION Last administered on 10/16/16 08:44; Admin Dose 200 MG; Start 10/15/16 at 12:00 Ferrous Sulfate (Feosol Liquid Cup) 330 mg DAILY GTB Last administered on 08:56; Admin Dose 330 MG; Start 10/16/16 at 09:00 Hydralazine HCl (Apresoline) 25 mg Q6H PRN GTB ELEVATED BLOOD PRESSURE; Start 10/15/16 at 12:00 Mineral Oil (Fleet Mineral Oil Enema) 133 ml DAILY PRN [place] CONSTIPATION Last administered on 10/16/16 03:54; Admin Dose 133 ML; Start 10/15/16 at 12:00 Multivitamins Therapeutic (Theragran) 1 tab DAILY PO Last administered on 08:58; Admin Dose 1 TAB; Start 10/15/16 at 12:00 Potassium Chloride (Potassium Chloride Pwd/Soln) 40 meq DAILY GTB Last administered on 10/27/16 08:56; Admin Dose 40 MEQ; Start 10/16/16 at 09:00 Miscellaneous Information 1 ea NOTE XX ; Start 10/15/16 at 21:30 Glucose (Glutose) 15 gm Q15M PRN PO DECREASED GLUCOSE; Start 10/15/16 at 21:30 Glucose (Glutose) 22.5 gm Q15M PRN PO DECREASED GLUCOSE; Start 10/15/16 at 21: 30 Dextrose (D50w Syringe) 25 ml Q15M PRN IV DECREASED GLUCOSE Last administered on 10/26/16 17:48; Admin Dose 25 ML; Start 10/15/16 at 21:30 Dextrose (D50w Syringe) 50 ml Q15M PRN IV DECREASED GLUCOSE; Start 10/15/16 at 21:30 Glucagon (Glucagen) 1 mg Q15M PRN IM DECREASED GLUCOSE; Start 10/15/16 at 21:30 Glucose (Glutose) 15 gm Q15M PRN BUCCAL DECREASED GLUCOSE; Start 10/15/16 at 21 :30 Metoclopramide HCl (Reglan) 10 mg Q6 IV Last administered on 10/27/16 05:00; Admin Dose 10 MG; Start 10/16/16 at 18:00 Lactulose (Enulose) 30 gm BID GTB Last administered on 10/27/16 08:56; Admin Dose 30 GM; Start 10/16/16 at 21:00 Lansoprazole (Prevacid) 30 mg BID@,18 GTB Last administered on 10/27/16 05: 03; Admin Dose 30 MG; Start 10/17/16 at 06:00 Carbidopa/Levodopa (Sinemet (25/ 100)) 1 tab TID GTB Last administered on 08:57; Admin Dose 1 TAB; Start 10/16/16 at 21:00 Lidocaine (Lidocaine 5% Oint) 1 applic TID TOP Last administered on 10/27/16 08:58; Admin Dose 1 APPLIC; Start 10/16/16 at 21:00 Metoprolol Tartrate (Lopressor) 12.5 mg BID GTB Last administered on 10/27/16 08:57; Admin Dose 12.5 MG; Start 10/16/16 at 21:00 Insulin Aspart (Novolog Insulin Pen) NOVOLOG *MILD* ALGORI... Q6 SC Last administered on 10/25/16 00:39; Admin Dose 1 UNIT; Start 10/24/16 at 18:00 Lactobacillus Acidoph/Bulgaricus (Floranex) 2 tab BID GTB Last administered on 10/27/16 08:57; Admin Dose 2 TAB; Start 10/24/16 at 21:00 Nystatin (Nystatin Susp) 5 ml QID GTB Last administered on 10/27/16 08:55; Admin Dose 5 ML; Start 10/24/16 at 21:00 Levetiracetam (Keppra) 1,000 mg BID PO Last administered on 10/27/16 08:57; Admin Dose 1,000 MG; Start 10/26/16 at 21:00 Demeclocycline HCl (Declomycin) 150 mg BID GTB Last administered on 10/27/16 08:57; Admin Dose 150 MG; Start 10/26/16 at 21:00 Insulin Glargine (Lantus) 10 unit DAILY@20 SC Last administered on 10/26/16 21 :21; Admin Dose 10 UNIT; Start 10/26/16 at 20:00 LISSA PARK MD Oct 27, 2016 09:08
--- NOTE | 2016-10-27 12:42 | CONS ---
Date/Time of Note Date/Time of Note DATE: 10/27/16 TIME: 12:39 Assessment/Plan Assessment/Plan Additional Assessment/Plan Ventilator settings; AC of 14, tidal volume 500, PEEP of 5, 30% FiO2. Assessment and recommendations; 1. Patient admitted for sepsis due to UTI with marked interval improvement. 2. Chronic respiratory failure. 3. Chronic ventilator dependence. Patient history with a history of severe anoxic encephalopathy. 4. Stable seizure disorder. 5. Stable hypertension. 6. Stable diabetes. Continue current treatment. Patient awaiting transfer to rehab facility. Prognosis remains poor. Consultation Date/Type/Reason Admit Date/Time Oct 10, 2016 at 13:53 Initial Consult Date 10/10/16 Referring Provider: MADDY HOPKINS MD 24 HR Interval Summary Free Text/Dictation Patient condition is stable. Has remained hemodynamically stable. General examination; middle-aged man, on ventilator via tracheostomy currently in no distress. Exam/Review of Systems Vital Signs Vitals Vital Signs Date Time Temp Pulse Resp B/P Pulse Ox O2 Delivery O2 Flow Rate FiO2 10/27/16 11:25 60 14 99 30 10/27/16 11:22 97.3 163/81 Intake and Output 10/26/16 10/26/16 10/27/16 15:00 23:00 07:00 Intake Total 440 ml 440 ml Output Total 400 ml 500 ml Balance 40 ml -60 ml Exam H EENT examination; supple neck, no JVD. There are well-healed scars involving the frontal area. Tracheostomy in place with clean insertion site. Chest examination; clear to auscultation bilaterally. S1-S2 audible, no murmurs. Regular rhythm. Abdomen examination; no organomegaly. Nondistended. G-tube in place. Bowel sounds audible. Extremity examination; no peripheral edema. NUTRITIONAL HEALTH COACH examination; patient remains unresponsive. Results Result Diagram: 10/27/16 0605 10/27/16 0605 Results 24 hrs Laboratory Tests Test 10/26/16 17:43 10/26/16 17:58 10/26/16 21:19 10/27/16 00:00 Bedside Glucose 67 L 140 91 91 Test 10/27/16 05:09 10/27/16 06:05 10/27/16 07:24 Bedside Glucose 87 86 Anion Gap 11 Basophils # 0.1 Basophils % 0.8 Blood Urea Nitrogen 10 Calcium Level 8.2 L Carbon Dioxide Level 25 Chloride Level 104 Creatinine 0.29 L Eosinophils # 0.1 Eosinophils % 2.1 Glucose Level 86 Hematocrit 28.8 L Hemoglobin 9.5 L Lymphocytes # 0.6 L Lymphocytes % 8.6 L Mean Corpuscular Hemoglobin 30.4 Mean Corpuscular Hemoglobin Concent 33.0 Mean Corpuscular Volume 92.0 Mean Platelet Volume 9.1 Monocytes # 0.7 Monocytes % 10.2 Neutrophils # 5.2 Neutrophils % 77.2 H Nucleated Red Blood Cells # 0.0 Nucleated Red Blood Cells % 0.0 Platelet Count 263 Potassium Level 3.9 Red Blood Count 3.13 L Red Cell Distribution Width 15.2 H Sodium Level 136 White Blood Count 6.7 Medications Medications Current Medications Ondansetron HCl (Zofran Inj) 4 mg Q6H PRN IV NAUSEA AND/OR VOMITING Last administered on 10/16/16 09:08; Admin Dose 4 MG; Start 10/10/16 at 14:00 Nitroglycerin (Nitroglycerin (Sl Tab) 0.4 Mg) 1 tab Q5M PRN SL CHEST PAIN; Start 10/10/16 at 14:00 Acetaminophen (Tylenol Supp) 650 mg Q4H PRN [place] PAIN LEVEL 1-3 OR FEVER Last administered on 10/16/16 22:11; Admin Dose 650 MG; Start 10/10/16 at 14:00 Morphine Sulfate (morphine) 2 mg Q4H PRN IV PAIN LEVEL 7-10; Start 10/10/16 at 14:00 Lorazepam (Ativan) 1 mg Q2H PRN IV ANXIETY Last administered on 10/15/16 20:27 ; Admin Dose 1 MG; Start 10/10/16 at 14:00 Docusate Sodium (Colace) 100 mg Q12H PRN PO CONSTIPATION; Start 10/10/16 at 14: 00 Hydralazine HCl (Apresoline) 10 mg Q6H PRN IV ELEVATED BLOOD PRESSURE Last administered on 10/24/16 11:31; Admin Dose 10 MG; Start 10/10/16 at 19:00 Atorvastatin Calcium (Lipitor) 40 mg QHS GTB Last administered on 10/26/16 21: 24; Admin Dose 40 MG; Start 10/15/16 at 21:00 Benazepril HCl (Lotensin) 10 mg DAILY GTB Last administered on 10/27/16 08:59 ; Admin Dose 10 MG; Start 10/15/16 at 12:00 Docusate Sodium (Colace Liquid Cup) 200 mg DAILY PRN GTB CONSTIPATION Last administered on 10/16/16 08:44; Admin Dose 200 MG; Start 10/15/16 at 12:00 Ferrous Sulfate (Feosol Liquid Cup) 330 mg DAILY GTB Last administered on 08:56; Admin Dose 330 MG; Start 10/16/16 at 09:00 Hydralazine HCl (Apresoline) 25 mg Q6H PRN GTB ELEVATED BLOOD PRESSURE; Start 10/15/16 at 12:00 Mineral Oil (Fleet Mineral Oil Enema) 133 ml DAILY PRN [place] CONSTIPATION Last administered on 10/16/16 03:54; Admin Dose 133 ML; Start 10/15/16 at 12:00 Multivitamins Therapeutic (Theragran) 1 tab DAILY PO Last administered on 08:58; Admin Dose 1 TAB; Start 10/15/16 at 12:00 Potassium Chloride (Potassium Chloride Pwd/Soln) 40 meq DAILY GTB Last administered on 10/27/16 08:56; Admin Dose 40 MEQ; Start 10/16/16 at 09:00 Miscellaneous Information 1 ea NOTE XX ; Start 10/15/16 at 21:30 Glucose (Glutose) 15 gm Q15M PRN PO DECREASED GLUCOSE; Start 10/15/16 at 21:30 Glucose (Glutose) 22.5 gm Q15M PRN PO DECREASED GLUCOSE; Start 10/15/16 at 21: 30 Dextrose (D50w Syringe) 25 ml Q15M PRN IV DECREASED GLUCOSE Last administered on 10/26/16 17:48; Admin Dose 25 ML; Start 10/15/16 at 21:30 Dextrose (D50w Syringe) 50 ml Q15M PRN IV DECREASED GLUCOSE; Start 10/15/16 at 21:30 Glucagon (Glucagen) 1 mg Q15M PRN IM DECREASED GLUCOSE; Start 10/15/16 at 21:30 Glucose (Glutose) 15 gm Q15M PRN BUCCAL DECREASED GLUCOSE; Start 10/15/16 at 21 :30 Metoclopramide HCl (Reglan) 10 mg Q6 IV Last administered on 10/27/16 05:00; Admin Dose 10 MG; Start 10/16/16 at 18:00 Lactulose (Enulose) 30 gm BID GTB Last administered on 10/27/16 08:56; Admin Dose 30 GM; Start 10/16/16 at 21:00 Lansoprazole (Prevacid) 30 mg BID@,18 GTB Last administered on 10/27/16 05: 03; Admin Dose 30 MG; Start 10/17/16 at 06:00 Carbidopa/Levodopa (Sinemet (25/ 100)) 1 tab TID GTB Last administered on 08:57; Admin Dose 1 TAB; Start 10/16/16 at 21:00 Lidocaine (Lidocaine 5% Oint) 1 applic TID TOP Last administered on 10/27/16 08:58; Admin Dose 1 APPLIC; Start 10/16/16 at 21:00 Metoprolol Tartrate (Lopressor) 12.5 mg BID GTB Last administered on 10/27/16 08:57; Admin Dose 12.5 MG; Start 10/16/16 at 21:00 Insulin Aspart (Novolog Insulin Pen) NOVOLOG *MILD* ALGORI... Q6 SC Last administered on 10/25/16 00:39; Admin Dose 1 UNIT; Start 10/24/16 at 18:00 Lactobacillus Acidoph/Bulgaricus (Floranex) 2 tab BID GTB Last administered on 10/27/16 08:57; Admin Dose 2 TAB; Start 10/24/16 at 21:00 Nystatin (Nystatin Susp) 5 ml QID GTB Last administered on 10/27/16 08:55; Admin Dose 5 ML; Start 10/24/16 at 21:00 Levetiracetam (Keppra) 1,000 mg BID PO Last administered on 10/27/16 08:57; Admin Dose 1,000 MG; Start 10/26/16 at 21:00 Demeclocycline HCl (Declomycin) 150 mg BID GTB Last administered on 10/27/16 08:57; Admin Dose 150 MG; Start 10/26/16 at 21:00 Insulin Glargine (Lantus) 10 unit DAILY@20 SC Last administered on 10/26/16 21 :21; Admin Dose 10 UNIT; Start 10/26/16 at 20:00 QARNI,JUANA Oct 27, 2016 12:42
--- NOTE | 2016-10-27 16:55 | PN ---
Date/Time of Note Date/Time of Note DATE: 10/27/16 TIME: 16:54 Assessment/Plan VTE Prophylaxis VTE Prophylaxis Intervention: SCD's Lines/Catheters IV [facility] Urinary Cath still in place: Yes Reason Cath still needed: urinary retention Assessment/Plan Chief Complaint/Hosp Course ASSESSMENT AND PLAN: - Leukocytosis, s/p emesis, continue empiric abx for possible aspiration. Dr. Mas is following gastroenterology consultation. - Sepsis secondary to urinary tract infection and healthcare-acquired pneumonia. Patient is followed by Dr. Sales in infectious disease consultation. Continue antibiotics per ID. - Ventilator dependent respiratory failure. Dr. Unger is following from pulmonology standpoint. Continue bronchodilators and ventilatory support. 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 - Seizure disorder. Continue Keppra. - Hypertension, continue benazepril and hydralazine. - Hyponatremia 2 SIADH. Patient is followed by Dr. Tovar in nephrology consultation. - History of cerebrovascular accident. Continue sequential compression device for deep venous thrombosis prophylaxis and Pepcid for peptic ulcer disease prophylaxis. Patient's condition and plan of care discussed with patient's daughter at the bedside. All questions answered, including MRI results. Further recommendations based on clinical course. Plan of care discussed with Dr. Desir. Problems: Exam/Review of Systems Vital Signs Vitals Vital Signs Date Time Temp Pulse Resp B/P Pulse Ox O2 Delivery O2 Flow Rate FiO2 10/27/16 16:21 58 10/27/16 15:55 97.5 18 135/66 100 10/27/16 13:25 30 Intake and Output 10/26/16 10/26/16 10/27/16 15:00 23:00 07:00 Intake Total 440 ml 440 ml Output Total 400 ml 500 ml Balance 40 ml -60 ml Exam GENERAL: This is a well-developed male on ventilator support, does not respond to verbal internal stimuli. HEENT: Head is atraumatic, normocephalic. Pupils equal, round, reactive to light and accommodation. NECK: Supple. Tracheostomy at the base of the neck. CHEST: Scattered rhonchi bilaterally, slightly diminished at the bases. No wheezes noted. HEART: Normal S1, S2. No murmurs, gallops, clicks, rubs noted. ABDOMEN: Protuberant, soft, nondistended, nontender. Bowel sounds present. EXTREMITIES: Mild edema. There is no clubbing or cyanosis. Pulses equal bilaterally 2+. SKIN: There is no rash, petechiae noted. NEUROLOGIC: The patient is obtunded. Results Result Diagram: 10/27/16 0605 10/27/16 06 Results 24 hrs Laboratory Tests Test 10/26/16 17:43 10/26/16 17:58 10/26/16 21:19 10/27/16 00:00 Bedside Glucose 67 L 140 91 91 Test 10/27/16 05:09 10/27/16 06:05 10/27/16 07:24 10/27/16 12:44 Bedside Glucose 87 86 96 Anion Gap 11 Basophils # 0.1 Basophils % 0.8 Blood Urea Nitrogen 10 Calcium Level 8.2 L Carbon Dioxide Level 25 Chloride Level 104 Creatinine 0.29 L Eosinophils # 0.1 Eosinophils % 2.1 Glucose Level 86 Hematocrit 28.8 L Hemoglobin 9.5 L Lymphocytes # 0.6 L Lymphocytes % 8.6 L Mean Corpuscular Hemoglobin 30.4 Mean Corpuscular Hemoglobin Concent 33.0 Mean Corpuscular Volume 92.0 Mean Platelet Volume 9.1 Monocytes # 0.7 Monocytes % 10.2 Neutrophils # 5.2 Neutrophils % 77.2 H Nucleated Red Blood Cells # 0.0 Nucleated Red Blood Cells % 0.0 Platelet Count 263 Potassium Level 3.9 Red Blood Count 3.13 L Red Cell Distribution Width 15.2 H Sodium Level 136 White Blood Count 6.7 Medications Medications Current Medications Ondansetron HCl (Zofran Inj) 4 mg Q6H PRN IV NAUSEA AND/OR VOMITING Last administered on 10/16/16 09:08; Admin Dose 4 MG; Start 10/10/16 at 14:00 Nitroglycerin (Nitroglycerin (Sl Tab) 0.4 Mg) 1 tab Q5M PRN SL CHEST PAIN; Start 10/10/16 at 14:00 Acetaminophen (Tylenol Supp) 650 mg Q4H PRN [place] PAIN LEVEL 1-3 OR FEVER Last administered on 10/16/16 22:11; Admin Dose 650 MG; Start 10/10/16 at 14:00 Morphine Sulfate (morphine) 2 mg Q4H PRN IV PAIN LEVEL 7-10; Start 10/10/16 at 14:00 Lorazepam (Ativan) 1 mg Q2H PRN IV ANXIETY Last administered on 10/15/16 20:27 ; Admin Dose 1 MG; Start 10/10/16 at 14:00 Docusate Sodium (Colace) 100 mg Q12H PRN PO CONSTIPATION; Start 10/10/16 at 14: 00 Hydralazine HCl (Apresoline) 10 mg Q6H PRN IV ELEVATED BLOOD PRESSURE Last administered on 10/24/16 11:31; Admin Dose 10 MG; Start 10/10/16 at 19:00 Atorvastatin Calcium (Lipitor) 40 mg QHS GTB Last administered on 10/26/16 21: 24; Admin Dose 40 MG; Start 10/15/16 at 21:00 Benazepril HCl (Lotensin) 10 mg DAILY GTB Last administered on 10/27/16 08:59 ; Admin Dose 10 MG; Start 10/15/16 at 12:00 Docusate Sodium (Colace Liquid Cup) 200 mg DAILY PRN GTB CONSTIPATION Last administered on 10/16/16 08:44; Admin Dose 200 MG; Start 10/15/16 at 12:00 Ferrous Sulfate (Feosol Liquid Cup) 330 mg DAILY GTB Last administered on 08:56; Admin Dose 330 MG; Start 10/16/16 at 09:00 Hydralazine HCl (Apresoline) 25 mg Q6H PRN GTB ELEVATED BLOOD PRESSURE Last administered on 10/27/16 12:46; Admin Dose 25 MG; Start 10/15/16 at 12:00 Mineral Oil (Fleet Mineral Oil Enema) 133 ml DAILY PRN DE CONSTIPATION Last administered on 10/16/16 03:54; Admin Dose 133 ML; Start 10/15/16 at 12:00 Multivitamins Therapeutic (Theragran) 1 tab DAILY PO Last administered on 08:58; Admin Dose 1 TAB; Start 10/15/16 at 12:00 Potassium Chloride (Potassium Chloride Pwd/Soln) 40 meq DAILY GTB Last administered on 10/27/16 08:56; Admin Dose 40 MEQ; Start 10/16/16 at 09:00 Miscellaneous Information 1 ea NOTE XX ; Start 10/15/16 at 21:30 Glucose (Glutose) 15 gm Q15M PRN PO DECREASED GLUCOSE; Start 10/15/16 at 21:30 Glucose (Glutose) 22.5 gm Q15M PRN PO DECREASED GLUCOSE; Start 10/15/16 at 21: 30 Dextrose (D50w Syringe) 25 ml Q15M PRN IV DECREASED GLUCOSE Last administered on 10/26/16 17:48; Admin Dose 25 ML; Start 10/15/16 at 21:30 Dextrose (D50w Syringe) 50 ml Q15M PRN IV DECREASED GLUCOSE; Start 10/15/16 at 21:30 Glucagon (Glucagen) 1 mg Q15M PRN IM DECREASED GLUCOSE; Start 10/15/16 at 21:30 Glucose (Glutose) 15 gm Q15M PRN BUCCAL DECREASED GLUCOSE; Start 10/15/16 at 21 :30 Metoclopramide HCl (Reglan) 10 mg Q6 IV Last administered on 10/27/16 12:46; Admin Dose 10 MG; Start 10/16/16 at 18:00 Lactulose (Enulose) 30 gm BID GTB Last administered on 10/27/16 08:56; Admin Dose 30 GM; Start 10/16/16 at 21:00 Lansoprazole (Prevacid) 30 mg BID@,18 GTB Last administered on 10/27/16 05: 03; Admin Dose 30 MG; Start 10/17/16 at 06:00 Carbidopa/Levodopa (Sinemet (25/ 100)) 1 tab TID GTB Last administered on 12:46; Admin Dose 1 TAB; Start 10/16/16 at 21:00 Lidocaine (Lidocaine 5% Oint) 1 applic TID TOP Last administered on 10/27/16 12:47; Admin Dose 1 APPLIC; Start 10/16/16 at 21:00 Metoprolol Tartrate (Lopressor) 12.5 mg BID GTB Last administered on 10/27/16 08:57; Admin Dose 12.5 MG; Start 10/16/16 at 21:00 Insulin Aspart (Novolog Insulin Pen) NOVOLOG *MILD* ALGORI... Q6 SC Last administered on 10/25/16 00:39; Admin Dose 1 UNIT; Start 10/24/16 at 18:00 Lactobacillus Acidoph/Bulgaricus (Floranex) 2 tab BID GTB Last administered on 10/27/16 08:57; Admin Dose 2 TAB; Start 10/24/16 at 21:00 Nystatin (Nystatin Susp) 5 ml QID GTB Last administered on 10/27/16 12:45; Admin Dose 5 ML; Start 10/24/16 at 21:00 Levetiracetam (Keppra) 1,000 mg BID PO Last administered on 10/27/16 08:57; Admin Dose 1,000 MG; Start 10/26/16 at 21:00 Demeclocycline HCl (Declomycin) 150 mg BID GTB Last administered on 10/27/16 08:57; Admin Dose 150 MG; Start 10/26/16 at 21:00 Insulin Glargine (Lantus) 10 unit DAILY@20 SC Last administered on 10/26/16 21 :21; Admin Dose 10 UNIT; Start 10/26/16 at 20:00 ALTHEA ACOSTA Oct 27, 2016 16:55
[2016-10-27] MEDS: ATORVASTATIN 40 MG TAB GTB SCH (20:52)
[2016-10-27] MEDS: INSULIN GLARGINE [LANtus] 3 ML PEN SC SCH (21:05)
[2016-10-28] VITALS (24 sets, daily range): BP systolic 101–165; BP diastolic 56–81; PULSE 58–64; RESP 14–17
[2016-10-28] MEDS: LANSOPRAZOLE 30 MG CAP GTB SCH ×2 (05:10→17:02)
[2016-10-28] MEDS: METOCLOPRAMIDE 10 MG INJ IV SCH ×4 (05:17→23:24)
[2016-10-28] MEDS: INSULIN ASPART [NOVOLOG] 3 ML PEN SC SCH ×4 (05:17→23:27)
[2016-10-28] MEDS: POTASSIUM CHLORIDE 20 MEQ POWDER FOR ORAL SOLN GTB SCH (10:08)
[2016-10-28] MEDS: BENAZEPRIL 10 MG TAB GTB SCH (10:08)
[2016-10-28] MEDS: NYSTATIN SUSP 5 ML CUP GTB SCH ×4 (10:08→20:40)
[2016-10-28] MEDS: MULTIVITAMINS THERAPEUTIC TAB PO SCH (10:08)
[2016-10-28] MEDS: LACTOBACILLUS CHEW TAB GTB SCH ×2 (10:09→20:39)
[2016-10-28] MEDS: LEVETIRACETAM 500 MG TAB PO SCH ×2 (10:09→20:39)
[2016-10-28] MEDS: DEMECLOCYCLINE 150 MG TAB GTB SCH ×2 (10:09→20:39)
[2016-10-28] MEDS: METOPROLOL 25 MG TAB GTB SCH ×2 (10:09→20:41)
[2016-10-28] MEDS: CARBIDOPA/LEVODOPA (25/100) TAB GTB SCH ×3 (10:09→20:39)
[2016-10-28] MEDS: LACTULOSE 30ML CUP GTB SCH ×2 (10:10→20:40)
[2016-10-28] MEDS: FERROUS SULFATE 60 MG/ML 5ML CUP GTB SCH (10:10)
[2016-10-28] MEDS: LIDOCAINE 5% 35 GM OINT TOP SCH ×3 (10:10→20:40)
--- NOTE | 2016-10-28 10:38 | CONS ---
Date/Time of Note Date/Time of Note DATE: 10/28/16 TIME: 10:37 Assessment/Plan Assessment/Plan Additional Assessment/Plan 1. Severe hyponatremia with a sodium of 119 on admission with seizures, possibly acute on chronic hyponatremia versus acute severe hyponatremia.- pt went from hyponatremia to hypernatremia with treatment with 3% saline and one dose of tolvaptan - then Improved to normal today wtih D5W IVF and DDAVP 0.2mg PO x2 dose 10/15/16- on 10/16/16 again Na dropped to 119 s/p Tovlaptan 15 mg PO x1 on 10/18/16-now Na 143- decreased Demeclocycline to 150mg BID on 10/26/2016 2. Seizures secondary to severe hyponatremia. 3. Sepsis secondary to bilateral pneumonia. 4. Ventilator-dependent respiratory failure, status post tracheostomy, on vent. 5. History of a previous brain tumor, had surgery. Currently, status post ventriculoperitoneal shunt in place. 6. History of a previous cerebellar cerebrovascular accident. PLAN: pt received 3 % saline and tolvaptan one dose on 10/10 and 10/11- went into polyuria, Na went from hyponatremia to hypernatremia- now improved to normal with D5W IVF and 2 dose of DDAVP 0.2mg- again today 10/16- na dropped from 140 to 122- given 3% hypertonic saline for another 12 hr - did not respond well, Na again dropped to 119- One dose of tolvaptan 15 mg X 1 10/18/16- Na dropped to 130 10/22/2016- tolvaptan 15 gram po x 1 dose on 09/21/16- now Na normal, - will decreased demeclocycline to 150mg BID on 10/26/16- No labs today to review, AM labs ordered for tomorrow onTube feeding continue demeclocycline to avoid use of tolvaptan monitor Na, pt has acute on chronic hyponatremia ventilator care as per pulmonary will follow up Consultation Date/Type/Reason Admit Date/Time Oct 10, 2016 at 13:53 Initial Consult Date 10/10/16 Type of Consultation: NEPHROLOGY Reason for Consultation Hyponatremia Referring Provider: MADDY HOPKINS MD 24 HR Interval Summary Free Text/Dictation no acute events, No labs today to review, pt remained stable on ventilator Exam/Review of Systems Vital Signs Vitals Vital Signs Date Time Temp Pulse Resp B/P Pulse Ox O2 Delivery O2 Flow Rate FiO2 10/28/16 09:23 62 14 99 30 10/28/16 07:24 98.4 101/58 Intake and Output 10/27/16 10/27/16 10/28/16 15:00 23:00 07:00 Intake Total 440 ml 440 ml Output Total 600 ml 550 ml Balance -160 ml -110 ml Exam HEENT: Tracheostomy site is clear. LUNGS: Bilateral coarse breath sounds with bilateral basilar rales present and lower lobe rhonchi present. HEART: S1, S2, tachycardia, no murmur. ABDOMEN: Soft. G-tube in place. EXTREMITIES: No clubbing, cyanosis, or edema. The patient is very debilitated. , + steve catheter in place Results Result Diagram: 10/27/16 0605 10/27/16 0605 Results 24 hrs Laboratory Tests Test 10/27/16 12:44 10/27/16 17:21 10/27/16 20:48 10/27/16 23:12 Bedside Glucose 96 98 88 91 Test 10/28/16 05:09 Bedside Glucose 108 Medications Medications Current Medications Ondansetron HCl (Zofran Inj) 4 mg Q6H PRN IV NAUSEA AND/OR VOMITING Last administered on 10/16/16 09:08; Admin Dose 4 MG; Start 10/10/16 at 14:00 Nitroglycerin (Nitroglycerin (Sl Tab) 0.4 Mg) 1 tab Q5M PRN SL CHEST PAIN; Start 10/10/16 at 14:00 Acetaminophen (Tylenol Supp) 650 mg Q4H PRN [place] PAIN LEVEL 1-3 OR FEVER Last administered on 10/16/16 22:11; Admin Dose 650 MG; Start 10/10/16 at 14:00 Morphine Sulfate (morphine) 2 mg Q4H PRN IV PAIN LEVEL 7-10; Start 10/10/16 at 14:00 Lorazepam (Ativan) 1 mg Q2H PRN IV ANXIETY Last administered on 10/15/16 20:27 ; Admin Dose 1 MG; Start 10/10/16 at 14:00 Docusate Sodium (Colace) 100 mg Q12H PRN PO CONSTIPATION; Start 10/10/16 at 14: 00 Hydralazine HCl (Apresoline) 10 mg Q6H PRN IV ELEVATED BLOOD PRESSURE Last administered on 10/24/16 11:31; Admin Dose 10 MG; Start 10/10/16 at 19:00 Atorvastatin Calcium (Lipitor) 40 mg QHS GTB Last administered on 10/27/16 20: 52; Admin Dose 40 MG; Start 10/15/16 at 21:00 Benazepril HCl (Lotensin) 10 mg DAILY GTB Last administered on 10/28/16 10:08; Admin Dose 10 MG; Start 10/15/16 at 12:00 Docusate Sodium (Colace Liquid Cup) 200 mg DAILY PRN GTB CONSTIPATION Last administered on 10/16/16 08:44; Admin Dose 200 MG; Start 10/15/16 at 12:00 Ferrous Sulfate (Feosol Liquid Cup) 330 mg DAILY GTB Last administered on 10:10; Admin Dose 330 MG; Start 10/16/16 at 09:00 Hydralazine HCl (Apresoline) 25 mg Q6H PRN GTB ELEVATED BLOOD PRESSURE Last administered on 10/27/16 12:46; Admin Dose 25 MG; Start 10/15/16 at 12:00 Mineral Oil (Fleet Mineral Oil Enema) 133 ml DAILY PRN [place] CONSTIPATION Last administered on 10/16/16 03:54; Admin Dose 133 ML; Start 10/15/16 at 12:00 Multivitamins Therapeutic (Theragran) 1 tab DAILY PO Last administered on 10:08; Admin Dose 1 TAB; Start 10/15/16 at 12:00 Potassium Chloride (Potassium Chloride Pwd/Soln) 40 meq DAILY GTB Last administered on 10/28/16 10:08; Admin Dose 40 MEQ; Start 10/16/16 at 09:00 Miscellaneous Information 1 ea NOTE XX ; Start 10/15/16 at 21:30 Glucose (Glutose) 15 gm Q15M PRN PO DECREASED GLUCOSE; Start 10/15/16 at 21:30 Glucose (Glutose) 22.5 gm Q15M PRN PO DECREASED GLUCOSE; Start 10/15/16 at 21: 30 Dextrose (D50w Syringe) 25 ml Q15M PRN IV DECREASED GLUCOSE Last administered on 10/26/16 17:48; Admin Dose 25 ML; Start 10/15/16 at 21:30 Dextrose (D50w Syringe) 50 ml Q15M PRN IV DECREASED GLUCOSE; Start 10/15/16 at 21:30 Glucagon (Glucagen) 1 mg Q15M PRN IM DECREASED GLUCOSE; Start 10/15/16 at 21:30 Glucose (Glutose) 15 gm Q15M PRN BUCCAL DECREASED GLUCOSE; Start 10/15/16 at 21 :30 Metoclopramide HCl (Reglan) 10 mg Q6 IV Last administered on 10/28/16 05:17; Admin Dose 10 MG; Start 10/16/16 at 18:00 Lactulose (Enulose) 30 gm BID GTB Last administered on 10/28/16 10:10; Admin Dose 30 GM; Start 10/16/16 at 21:00 Lansoprazole (Prevacid) 30 mg BID@18 GTB Last administered on 10/28/16 05:10 ; Admin Dose 30 MG; Start 10/17/16 at 06:00 Carbidopa/Levodopa (Sinemet (25/ 100)) 1 tab TID GTB Last administered on 10:09; Admin Dose 1 TAB; Start 10/16/16 at 21:00 Lidocaine (Lidocaine 5% Oint) 1 applic TID TOP Last administered on 10/28/16 10 :10; Admin Dose 1 APPLIC; Start 10/16/16 at 21:00 Metoprolol Tartrate (Lopressor) 12.5 mg BID GTB Last administered on 10/28/16 10:09; Admin Dose 12.5 MG; Start 10/16/16 at 21:00 Insulin Aspart (Novolog Insulin Pen) NOVOLOG *MILD* ALGORI... Q6 SC Last administered on 10/25/16 00:39; Admin Dose 1 UNIT; Start 10/24/16 at 18:00 Lactobacillus Acidoph/Bulgaricus (Floranex) 2 tab BID GTB Last administered on 10/28/16 10:09; Admin Dose 2 TAB; Start 10/24/16 at 21:00 Nystatin (Nystatin Susp) 5 ml QID GTB Last administered on 10/28/16 10:08; Admin Dose 5 ML; Start 10/24/16 at 21:00 Levetiracetam (Keppra) 1,000 mg BID PO Last administered on 10/28/16 10:09; Admin Dose 1,000 MG; Start 10/26/16 at 21:00 Demeclocycline HCl (Declomycin) 150 mg BID GTB Last administered on 10/28/16 10 :09; Admin Dose 150 MG; Start 10/26/16 at 21:00 Insulin Glargine (Lantus) 10 unit DAILY@20 SC Last administered on 10/27/16 21 :05; Admin Dose 10 UNIT; Start 10/26/16 at 20:00 LISSA PARK MD Oct 28, 2016 10:38
--- NOTE | 2016-10-28 12:33 | CONS ---
Date/Time of Note Date/Time of Note DATE: 10/28/16 TIME: 12:30 Assessment/Plan Assessment/Plan Additional Assessment/Plan Ventilator settings; AC of 14, tidal volume 500, PEEP of 5, 30% FiO2. Assessment recommendations; 1. Patient admitted for severe UTI and sepsis doing markedly better now. Off antibiotics. 2. History of prior craniotomy resulting in severe anoxic brain injury. 3. Stable seizure disorder. 4. Stable hypertension. 5. Diabetes which also is fairly stable. 6. Parkinson's disease. 7. Diabetes insipidus. Continue current treatment. Patient awaiting discharge. Obtain a serum sodium level. Consultation Date/Type/Reason Admit Date/Time Oct 10, 2016 at 13:53 Initial Consult Date 10/10/16 Type of Consultation: Pulmonary Referring Provider: MADDY HOPKINS MD 24 HR Interval Summary Free Text/Dictation Patient condition remains stable. Remains unresponsive on account of anoxic enthesopathy. Remains ventilator dependent. Has remained hemodynamically stable. General examination; middle aged man on ventilator via tracheostomy currently in no distress remains unresponsive. Exam/Review of Systems Vital Signs Vitals Vital Signs Date Time Temp Pulse Resp B/P Pulse Ox O2 Delivery O2 Flow Rate FiO2 10/28/16 12:21 59 10/28/16 11:19 98.2 15 165/81 99 10/28/16 09:23 30 Intake and Output 10/27/16 10/27/16 10/28/16 15:00 23:00 07:00 Intake Total 440 ml 440 ml Output Total 600 ml 550 ml Balance -160 ml -110 ml Exam H EENT examination; supple neck, no JVD. No lymphadenopathy. Midline trachea. No thyromegaly. Pupils are midsize and reactive to light. There is a well- healed craniotomy scar involving the frontal area. Tracheostomy in place with clean insertion site. No thyromegaly. Chest examination; clear to auscultation bilaterally. S1-S2 audible, no murmurs. Regular rhythm. Abdomen examination; soft, nontender. No organomegaly. Bowel sounds audible. G-tube in place. Extremity examination; no peripheral edema. Pulses 1+ bilaterally. MANAGER CT examination; patient remains completely unresponsive. Results Result Diagram: 10/27/16 0610/27/16 06 Results 24 hrs Laboratory Tests Test 10/27/16 12:44 10/27/16:21 10/27/16 20:48 10/27/16 23:12 Bedside Glucose 96 98 88 91 Test 10/28/16 05:09 10/28/16 12:04 Bedside Glucose 108 90 Medications Medications Current Medications Ondansetron HCl (Zofran Inj) 4 mg Q6H PRN IV NAUSEA AND/OR VOMITING Last administered on 10/16/16 09:08; Admin Dose 4 MG; Start 10/10/16 at 14:00 Nitroglycerin (Nitroglycerin (Sl Tab) 0.4 Mg) 1 tab Q5M PRN SL CHEST PAIN; Start 10/10/16 at 14:00 Acetaminophen (Tylenol Supp) 650 mg Q4H PRN [place] PAIN LEVEL 1-3 OR FEVER Last administered on 10/16/16 22:11; Admin Dose 650 MG; Start 10/10/16 at 14:00 Morphine Sulfate (morphine) 2 mg Q4H PRN IV PAIN LEVEL 7-10; Start 10/10/16 at 14:00 Lorazepam (Ativan) 1 mg Q2H PRN IV ANXIETY Last administered on 10/15/16 20:27 ; Admin Dose 1 MG; Start 10/10/16 at 14:00 Docusate Sodium (Colace) 100 mg Q12H PRN PO CONSTIPATION; Start 10/10/16 at 14: 00 Hydralazine HCl (Apresoline) 10 mg Q6H PRN IV ELEVATED BLOOD PRESSURE Last administered on 10/24/16 11:31; Admin Dose 10 MG; Start 10/10/16 at 19:00 Atorvastatin Calcium (Lipitor) 40 mg QHS GTB Last administered on 10/27/16 20: 52; Admin Dose 40 MG; Start 10/15/16 at 21:00 Benazepril HCl (Lotensin) 10 mg DAILY GTB Last administered on 10/28/16 10:08; Admin Dose 10 MG; Start 10/15/16 at 12:00 Docusate Sodium (Colace Liquid Cup) 200 mg DAILY PRN GTB CONSTIPATION Last administered on 10/16/16 08:44; Admin Dose 200 MG; Start 10/15/16 at 12:00 Ferrous Sulfate (Feosol Liquid Cup) 330 mg DAILY GTB Last administered on 10:10; Admin Dose 330 MG; Start 10/16/16 at 09:00 Hydralazine HCl (Apresoline) 25 mg Q6H PRN GTB ELEVATED BLOOD PRESSURE Last administered on 10/27/16 12:46; Admin Dose 25 MG; Start 10/15/16 at 12:00 Mineral Oil (Fleet Mineral Oil Enema) 133 ml DAILY PRN [place] CONSTIPATION Last administered on 10/16/16 03:54; Admin Dose 133 ML; Start 10/15/16 at 12:00 Multivitamins Therapeutic (Theragran) 1 tab DAILY PO Last administered on 10:08; Admin Dose 1 TAB; Start 10/15/16 at 12:00 Potassium Chloride (Potassium Chloride Pwd/Soln) 40 meq DAILY GTB Last administered on 10/28/16 10:08; Admin Dose 40 MEQ; Start 10/16/16 at 09:00 Miscellaneous Information 1 ea NOTE XX ; Start 10/15/16 at 21:30 Glucose (Glutose) 15 gm Q15M PRN PO DECREASED GLUCOSE; Start 10/15/16 at 21:30 Glucose (Glutose) 22.5 gm Q15M PRN PO DECREASED GLUCOSE; Start 10/15/16 at 21: 30 Dextrose (D50w Syringe) 25 ml Q15M PRN IV DECREASED GLUCOSE Last administered on 10/26/16 17:48; Admin Dose 25 ML; Start 10/15/16 at 21:30 Dextrose (D50w Syringe) 50 ml Q15M PRN IV DECREASED GLUCOSE; Start 10/15/16 at 21:30 Glucagon (Glucagen) 1 mg Q15M PRN IM DECREASED GLUCOSE; Start 10/15/16 at 21:30 Glucose (Glutose) 15 gm Q15M PRN BUCCAL DECREASED GLUCOSE; Start 10/15/16 at 21 :30 Metoclopramide HCl (Reglan) 10 mg Q6 IV Last administered on 10/28/16 12:10; Admin Dose 10 MG; Start 10/16/16 at 18:00 Lactulose (Enulose) 30 gm BID GTB Last administered on 10/28/16 10:10; Admin Dose 30 GM; Start 10/16/16 at 21:00 Lansoprazole (Prevacid) 30 mg BID@,18 GTB Last administered on 10/28/16 05:10 ; Admin Dose 30 MG; Start 10/17/16 at 06:00 Carbidopa/Levodopa (Sinemet (25/ 100)) 1 tab TID GTB Last administered on 12:10; Admin Dose 1 TAB; Start 10/16/16 at 21:00 Lidocaine (Lidocaine 5% Oint) 1 applic TID TOP Last administered on 10/28/16 12 :10; Admin Dose 1 APPLIC; Start 10/16/16 at 21:00 Metoprolol Tartrate (Lopressor) 12.5 mg BID GTB Last administered on 10/28/16 10:09; Admin Dose 12.5 MG; Start 10/16/16 at 21:00 Insulin Aspart (Novolog Insulin Pen) NOVOLOG *MILD* ALGORI... Q6 SC Last administered on 10/25/16 00:39; Admin Dose 1 UNIT; Start 10/24/16 at 18:00 Lactobacillus Acidoph/Bulgaricus (Floranex) 2 tab BID GTB Last administered on 10/28/16 10:09; Admin Dose 2 TAB; Start 10/24/16 at 21:00 Nystatin (Nystatin Susp) 5 ml QID GTB Last administered on 10/28/16 12:09; Admin Dose 5 ML; Start 10/24/16 at 21:00 Levetiracetam (Keppra) 1,000 mg BID PO Last administered on 10/28/16 10:09; Admin Dose 1,000 MG; Start 10/26/16 at 21:00 Demeclocycline HCl (Declomycin) 150 mg BID GTB Last administered on 10/28/16 10 :09; Admin Dose 150 MG; Start 10/26/16 at 21:00 Insulin Glargine (Lantus) 10 unit DAILY@20 SC Last administered on 10/27/16 21 :05; Admin Dose 10 UNIT; Start 10/26/16 at 20:00 JUANA DE LEÓN Oct 28, 2016 12:33
[2016-10-28 12:36] LABS: POTASSIUM 4.2 mmol/L (3.5-5.1)
[2016-10-28 12:38] LABS: CREATININE 0.3 mg/dl (0.61-1.24)
[2016-10-28 12:39] LABS: CALCIUM 7.9 mg/dl (8.4-10.2)
--- NOTE | 2016-10-28 17:59 | PN ---
Date/Time of Note Date/Time of Note DATE: 10/28/16 TIME: 17:57 Assessment/Plan VTE Prophylaxis VTE Prophylaxis Intervention: SCD's Lines/Catheters IV [facility]ter Type (from [facility]): [place] [facility] Urinary Cath still in place: Yes Reason Cath still needed: urinary retention Assessment/Plan Chief Complaint/Hosp Course ASSESSMENT AND PLAN: - Leukocytosis, s/p emesis, continue empiric abx for possible aspiration. Dr. Mas is following gastroenterology consultation. - Sepsis secondary to urinary tract infection and healthcare-acquired pneumonia. Patient is followed by Dr. Sales in infectious disease consultation. Continue antibiotics per ID. - Ventilator dependent respiratory failure. Dr. Unger is following from pulmonology standpoint. Continue bronchodilators and ventilatory support. 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 - Seizure disorder. Continue Keppra. - Hypertension, continue benazepril and hydralazine. - Hyponatremia 2 SIADH. Patient is followed by Dr. Tovar in nephrology consultation. - History of cerebrovascular accident. Continue sequential compression device for deep venous thrombosis prophylaxis and Pepcid for peptic ulcer disease prophylaxis. Further recommendations based on clinical course. Plan of care discussed with Dr. Desir. Problems: Subjective 24 Hr Interval Summary Free Text/Dictation Patient tolerates GT feeding at very low rate, will increase gradually. No fever. Exam/Review of Systems Vital Signs Vitals Vital Signs Date Time Temp Pulse Resp B/P Pulse Ox O2 Delivery O2 Flow Rate FiO2 10/28/16 16:51 64 10/28/16 15:17 98.3 14 140/70 96 10/28/16 15:03 30 Intake and Output 10/27/16 10/27/16 10/28/16 15:00 23:00 07:00 Intake Total 440 ml 440 ml Output Total 600 ml 550 ml Balance -160 ml -110 ml Exam GENERAL: This is a well-developed male on ventilator support, does not respond to verbal internal stimuli. HEENT: Head is atraumatic, normocephalic. Pupils equal, round, reactive to light and accommodation. NECK: Supple. Tracheostomy at the base of the neck. CHEST: Scattered rhonchi bilaterally, slightly diminished at the bases. No wheezes noted. HEART: Normal S1, S2. No murmurs, gallops, clicks, rubs noted. ABDOMEN: Protuberant, soft, nondistended, nontender. Bowel sounds present. EXTREMITIES: Mild edema. There is no clubbing or cyanosis. Pulses equal bilaterally 2+. SKIN: There is no rash, petechiae noted. NEUROLOGIC: The patient is obtunded. Results Result Diagram: 10/27/16 0605 10/28/16 1200 Results 24 hrs Laboratory Tests Test 10/27/16 20:48 10/27/16 23:12 10/28/16 05:09 10/28/16 12:00 Bedside Glucose 88 91 108 Anion Gap 11 Blood Urea Nitrogen 9 Calcium Level 7.9 L Carbon Dioxide Level 24 Chloride Level 98 Creatinine 0.30 L Glucose Level 89 Potassium Level 4.2 Sodium Level 129 L Test 10/28/16 12:04 10/28/16 17:05 Bedside Glucose 90 106 Medications Medications Current Medications Ondansetron HCl (Zofran Inj) 4 mg Q6H PRN IV NAUSEA AND/OR VOMITING Last administered on 10/16/16 09:08; Admin Dose 4 MG; Start 10/10/16 at 14:00 Nitroglycerin (Nitroglycerin (Sl Tab) 0.4 Mg) 1 tab Q5M PRN SL CHEST PAIN; Start 10/10/16 at 14:00 Acetaminophen (Tylenol Supp) 650 mg Q4H PRN [place] PAIN LEVEL 1-3 OR FEVER Last administered on 10/16/16 22:11; Admin Dose 650 MG; Start 10/10/16 at 14:00 Morphine Sulfate (morphine) 2 mg Q4H PRN IV PAIN LEVEL 7-10; Start 10/10/16 at 14:00 Lorazepam (Ativan) 1 mg Q2H PRN IV ANXIETY Last administered on 10/15/16 20:27 ; Admin Dose 1 MG; Start 10/10/16 at 14:00 Docusate Sodium (Colace) 100 mg Q12H PRN PO CONSTIPATION; Start 10/10/16 at 14: 00 Hydralazine HCl (Apresoline) 10 mg Q6H PRN IV ELEVATED BLOOD PRESSURE Last administered on 10/24/16 11:31; Admin Dose 10 MG; Start 10/10/16 at 19:00 Atorvastatin Calcium (Lipitor) 40 mg QHS GTB Last administered on 10/27/16 20: 52; Admin Dose 40 MG; Start 10/15/16 at 21:00 Benazepril HCl (Lotensin) 10 mg DAILY GTB Last administered on 10/28/16 10:08; Admin Dose 10 MG; Start 10/15/16 at 12:00 Docusate Sodium (Colace Liquid Cup) 200 mg DAILY PRN GTB CONSTIPATION Last administered on 10/16/16 08:44; Admin Dose 200 MG; Start 10/15/16 at 12:00 Ferrous Sulfate (Feosol Liquid Cup) 330 mg DAILY GTB Last administered on 10:10; Admin Dose 330 MG; Start 10/16/16 at 09:00 Hydralazine HCl (Apresoline) 25 mg Q6H PRN GTB ELEVATED BLOOD PRESSURE Last administered on 10/27/16 12:46; Admin Dose 25 MG; Start 10/15/16 at 12:00 Mineral Oil (Fleet Mineral Oil Enema) 133 ml DAILY PRN [place] CONSTIPATION Last administered on 10/16/16 03:54; Admin Dose 133 ML; Start 10/15/16 at 12:00 Multivitamins Therapeutic (Theragran) 1 tab DAILY PO Last administered on 10:08; Admin Dose 1 TAB; Start 10/15/16 at 12:00 Potassium Chloride (Potassium Chloride Pwd/Soln) 40 meq DAILY GTB Last administered on 10/28/16 10:08; Admin Dose 40 MEQ; Start 10/16/16 at 09:00 Miscellaneous Information 1 ea NOTE XX ; Start 10/15/16 at 21:30 Glucose (Glutose) 15 gm Q15M PRN PO DECREASED GLUCOSE; Start 10/15/16 at 21:30 Glucose (Glutose) 22.5 gm Q15M PRN PO DECREASED GLUCOSE; Start 10/15/16 at 21: 30 Dextrose (D50w Syringe) 25 ml Q15M PRN IV DECREASED GLUCOSE Last administered on 10/26/16 17:48; Admin Dose 25 ML; Start 10/15/16 at 21:30 Dextrose (D50w Syringe) 50 ml Q15M PRN IV DECREASED GLUCOSE; Start 10/15/16 at 21:30 Glucagon (Glucagen) 1 mg Q15M PRN IM DECREASED GLUCOSE; Start 10/15/16 at 21:30 Glucose (Glutose) 15 gm Q15M PRN BUCCAL DECREASED GLUCOSE; Start 10/15/16 at 21 :30 Metoclopramide HCl (Reglan) 10 mg Q6 IV Last administered on 10/28/16 17:02; Admin Dose 10 MG; Start 10/16/16 at 18:00 Lactulose (Enulose) 30 gm BID GTB Last administered on 10/28/16 10:10; Admin Dose 30 GM; Start 10/16/16 at 21:00 Lansoprazole (Prevacid) 30 mg BID@18 GTB Last administered on 10/28/16 17:02 ; Admin Dose 30 MG; Start 10/17/16 at 06:00 Carbidopa/Levodopa (Sinemet (25/ )) 1 tab TID GTB Last administered on 12:10; Admin Dose 1 TAB; Start 10/16/16 at 21:00 Lidocaine (Lidocaine 5% Oint) 1 applic TID TOP Last administered on 10/28/16 12 :10; Admin Dose 1 APPLIC; Start 10/16/16 at 21:00 Metoprolol Tartrate (Lopressor) 12.5 mg BID GTB Last administered on 10/28/16 10:09; Admin Dose 12.5 MG; Start 10/16/16 at 21:00 Insulin Aspart (Novolog Insulin Pen) NOVOLOG *MILD* ALGORI... Q6 SC Last administered on 10/25/16 00:39; Admin Dose 1 UNIT; Start 10/24/16 at 18:00 Lactobacillus Acidoph/Bulgaricus (Floranex) 2 tab BID GTB Last administered on 10/28/16 10:09; Admin Dose 2 TAB; Start 10/24/16 at 21:00 Nystatin (Nystatin Susp) 5 ml QID GTB Last administered on 10/28/16 17:03; Admin Dose 5 ML; Start 10/24/16 at 21:00 Levetiracetam (Keppra) 1,000 mg BID PO Last administered on 10/28/16 10:09; Admin Dose 1,000 MG; Start 10/26/16 at 21:00 Demeclocycline HCl (Declomycin) 150 mg BID GTB Last administered on 10/28/16 10 :09; Admin Dose 150 MG; Start 10/26/16 at 21:00 Insulin Glargine (Lantus) 10 unit DAILY@20 SC Last administered on 10/27/16t 21 :05; Admin Dose 10 UNIT; Start 10/26/16 at 20:00 ALTHEA ACOSTA Oct 28, 2016 17:59
[2016-10-28] MEDS: ATORVASTATIN 40 MG TAB GTB SCH (20:39)
[2016-10-28] MEDS: INSULIN GLARGINE [LANtus] 3 ML PEN SC SCH (20:49)
[2016-10-29] VITALS (26 sets, daily range): BP systolic 137–169; BP diastolic 74–96; PULSE 58–87; RESP 14–18
[2016-10-29] MEDS: LANSOPRAZOLE 30 MG CAP GTB SCH ×2 (05:26→17:24)
[2016-10-29] MEDS: METOCLOPRAMIDE 10 MG INJ IV SCH ×4 (05:26→23:50)
[2016-10-29] MEDS: INSULIN ASPART [NOVOLOG] 3 ML PEN SC SCH ×4 (05:26→23:51)
[2016-10-29 06:57] LABS: ADD SCAN DIFF NO
[2016-10-29 07:03] LABS: BASOPHIL # 0.1 10^3/ul (0.0-0.1); BASOPHILS % 1.1 % (0.0-2.0); EOSINOPHILS # 0.1 10^3/ul (0.0-0.5); EOSINOPHILS % 2.1 % (0.0-7.0); HEMATOCRIT 28.8 % (42.0-52.0); HEMOGLOBIN 9.9 g/dl (14.0-18.0); LYMPHOCYTES # 0.6 10^3/ul (0.8-2.9); MEAN CORPUSCULAR HGB CONC 34.4 g/dl (32.0-37.0); MEAN CORPUSCULAR VOLUME 87.3 fl (82.0-101.0); MONOCYTE # 0.7 10^3/ul (0.3-0.9); MONOCYTES % 11.5 % (0.0-11.0); NEUTROPHIL # 4.1 10^3/ul (1.6-7.5); NEUTROPHILS % 72.5 % (39.0-77.0); PLATELET COUNT 333 10^3/UL (140-415); RED CELL DISTRIBUTION WIDTH 14.6 % (11.5-14.5); WHITE BLOOD COUNT 5.6 10^3/ul (4.8-10.8)
[2016-10-29 07:07] LABS: POTASSIUM 3.9 mmol/L (3.5-5.1)
[2016-10-29 07:09] LABS: CREATININE 0.29 mg/dl (0.61-1.24)
[2016-10-29 07:10] LABS: CALCIUM 7.9 mg/dl (8.4-10.2)
[2016-10-29] MEDS: DEMECLOCYCLINE 150 MG TAB GTB SCH ×3 (08:30→20:42)
[2016-10-29] MEDS: LACTOBACILLUS CHEW TAB GTB SCH ×2 (08:30→20:42)
[2016-10-29] MEDS: POTASSIUM CHLORIDE 20 MEQ POWDER FOR ORAL SOLN GTB SCH (08:30)
[2016-10-29] MEDS: LACTULOSE 30ML CUP GTB SCH ×2 (08:30→20:43)
[2016-10-29] MEDS: MULTIVITAMINS THERAPEUTIC TAB PO SCH (08:30)
[2016-10-29] MEDS: LEVETIRACETAM 500 MG TAB PO SCH ×2 (08:30→20:42)
[2016-10-29] MEDS: CARBIDOPA/LEVODOPA (25/100) TAB GTB SCH ×3 (08:30→20:42)
[2016-10-29] MEDS: BENAZEPRIL 10 MG TAB GTB SCH (08:31)
[2016-10-29] MEDS: METOPROLOL 25 MG TAB GTB SCH ×2 (08:31→20:42)
[2016-10-29] MEDS: NYSTATIN SUSP 5 ML CUP GTB SCH ×4 (08:31→20:43)
[2016-10-29] MEDS: FERROUS SULFATE 60 MG/ML 5ML CUP GTB SCH (08:31)
[2016-10-29] MEDS: LIDOCAINE 5% 35 GM OINT TOP SCH ×3 (08:32→20:43)
--- NOTE | 2016-10-29 08:52 | CONS ---
Date/Time of Note Date/Time of Note DATE: 10/29/16 TIME: 08:49 Assessment/Plan Assessment/Plan Additional Assessment/Plan 1. Severe hyponatremia with a sodium of 119 on admission with seizures, possibly acute on chronic hyponatremia versus acute severe hyponatremia.- pt went from hyponatremia to hypernatremia with treatment with 3% saline and one dose of tolvaptan - then Improved to normal today wtih D5W IVF and DDAVP 0.2mg PO x2 dose 10/15/16- on 10/16/16 again Na dropped to 119 s/p Tovlaptan 15 mg PO x1 on 10/18/16-now Na 143- decreased Demeclocycline to 150mg BID on 10/26/2016- again Na dropped to 125 10/29/16 2. Seizures secondary to severe hyponatremia. 3. Sepsis secondary to bilateral pneumonia. 4. Ventilator-dependent respiratory failure, status post tracheostomy, on vent. 5. History of a previous brain tumor, had surgery. Currently, status post ventriculoperitoneal shunt in place. 6. History of a previous cerebellar cerebrovascular accident. PLAN: pt received 3 % saline and tolvaptan one dose on 10/10 and 10/11- went into polyuria, Na went from hyponatremia to hypernatremia- now improved to normal with D5W IVF and 2 dose of DDAVP 0.2mg- again today 10/16- na dropped from 140 to 122- given 3% hypertonic saline for another 12 hr - did not respond well, Na again dropped to 119- One dose of tolvaptan 15 mg X 1 10/18/16- Na dropped to 130 10/22/2016- tolvaptan 15 gram po x 1 dose on 09/21/16- now Na normal, - will decreased demeclocycline to 150mg BID on 10/26/16- again Na dropped to 125 10/29/16 - I will increase demeclocycline to 300mg PO BID onTube feeding continue demeclocycline to avoid use of tolvaptan monitor Na, pt has acute on chronic hyponatremia ventilator care as per pulmonary will follow up Consultation Date/Type/Reason Admit Date/Time Oct 10, 2016 at 13:53 Initial Consult Date 10/10/16 Type of Consultation: NEPHROLOGY Reason for Consultation Severe Hyponatremia, Fluctuating Na level Referring Provider: MADDY HOPKINS MD 24 HR Interval Summary Free Text/Dictation Na again dropped to 125 today, pt on ventilator, on low rate of tube feeding Exam/Review of Systems Vital Signs Vitals Vital Signs Date Time Temp Pulse Resp B/P Pulse Ox O2 Delivery O2 Flow Rate FiO2 10/29/16 07:45 98.1 57 18 158/80 98 10/29/16 05:54 30 Intake and Output 10/28/16 10/28/16 10/29/16 15:00 23:00 07:00 Intake Total 440 ml Output Total 450 ml Balance -10 ml Exam HEENT: Tracheostomy site is clear. LUNGS: Bilateral coarse breath sounds with bilateral basilar rales present and lower lobe rhonchi present. HEART: S1, S2, tachycardia, no murmur. ABDOMEN: Soft. G-tube in place. EXTREMITIES: No clubbing, cyanosis, or edema. The patient is very debilitated. , + steve catheter in place Results Result Diagram: 10/29/16 0615 10/29/16 0615 Results 24 hrs Laboratory Tests Test 10/28/16 12:00 10/28/16 12:04 10/28/16 17:05 10/28/16 20:37 Anion Gap 11 Blood Urea Nitrogen 9 Calcium Level 7.9 L Carbon Dioxide Level 24 Chloride Level 98 Creatinine 0.30 L Glucose Level 89 Potassium Level 4.2 Sodium Level 129 L Bedside Glucose 90 106 105 Test 10/28/16 23:27 10/29/16 05:25 10/29/16 06:15 Bedside Glucose 107 109 Anion Gap 11 Basophils # 0.1 Basophils % 1.1 Blood Urea Nitrogen 8 Calcium Level 7.9 L Carbon Dioxide Level 24 Chloride Level 94 L Creatinine 0.29 L Eosinophils # 0.1 Eosinophils % 2.1 Glucose Level 100 Hematocrit 28.8 L Hemoglobin 9.9 L Lymphocytes # 0.6 L Lymphocytes % 11.0 L Mean Corpuscular Hemoglobin 30.0 Mean Corpuscular Hemoglobin Concent 34.4 Mean Corpuscular Volume 87.3 Mean Platelet Volume 9.0 Monocytes # 0.7 Monocytes % 11.5 H Neutrophils # 4.1 Neutrophils % 72.5 Nucleated Red Blood Cells # 0.0 Nucleated Red Blood Cells % 0.0 Platelet Count 333 # Potassium Level 3.9 Red Blood Count 3.30 L Red Cell Distribution Width 14.6 H Sodium Level 125 L White Blood Count 5.6 Medications Medications Current Medications Ondansetron HCl (Zofran Inj) 4 mg Q6H PRN IV NAUSEA AND/OR VOMITING Last administered on 10/16/16 09:08; Admin Dose 4 MG; Start 10/10/16 at 14:00 Nitroglycerin (Nitroglycerin (Sl Tab) 0.4 Mg) 1 tab Q5M PRN SL CHEST PAIN; Start 10/10/16 at 14:00 Acetaminophen (Tylenol Supp) 650 mg Q4H PRN [place] PAIN LEVEL 1-3 OR FEVER Last administered on 10/16/16 22:11; Admin Dose 650 MG; Start 10/10/16 at 14:00 Morphine Sulfate (morphine) 2 mg Q4H PRN IV PAIN LEVEL 7-10; Start 10/10/16 at 14:00 Lorazepam (Ativan) 1 mg Q2H PRN IV ANXIETY Last administered on 10/15/16 20:27 ; Admin Dose 1 MG; Start 10/10/16 at 14:00 Docusate Sodium (Colace) 100 mg Q12H PRN PO CONSTIPATION; Start 10/10/16 at 14: 00 Hydralazine HCl (Apresoline) 10 mg Q6H PRN IV ELEVATED BLOOD PRESSURE Last administered on 10/24/16 11:31; Admin Dose 10 MG; Start 10/10/16 at 19:00 Atorvastatin Calcium (Lipitor) 40 mg QHS GTB Last administered on 10/28/16 20: 39; Admin Dose 40 MG; Start 10/15/16 at 21:00 Benazepril HCl (Lotensin) 10 mg DAILY GTB Last administered on 10/29/16 08:31; Admin Dose 10 MG; Start 10/15/16 at 12:00 Docusate Sodium (Colace Liquid Cup) 200 mg DAILY PRN GTB CONSTIPATION Last administered on 10/16/16 08:44; Admin Dose 200 MG; Start 10/15/16 at 12:00 Ferrous Sulfate (Feosol Liquid Cup) 330 mg DAILY GTB Last administered on 08:31; Admin Dose 330 MG; Start 10/16/16 at 09:00 Hydralazine HCl (Apresoline) 25 mg Q6H PRN GTB ELEVATED BLOOD PRESSURE Last administered on 10/27/16 12:46; Admin Dose 25 MG; Start 10/15/16 at 12:00 Mineral Oil (Fleet Mineral Oil Enema) 133 ml DAILY PRN [place] CONSTIPATION Last administered on 10/16/16 03:54; Admin Dose 133 ML; Start 10/15/16 at 12:00 Multivitamins Therapeutic (Theragran) 1 tab DAILY PO Last administered on 08:30; Admin Dose 1 TAB; Start 10/15/16 at 12:00 Potassium Chloride (Potassium Chloride Pwd/Soln) 40 meq DAILY GTB Last administered on 10/29/16 08:30; Admin Dose 40 MEQ; Start 10/16/16 at 09:00 Miscellaneous Information 1 ea NOTE XX ; Start 10/15/16 at 21:30 Glucose (Glutose) 15 gm Q15M PRN PO DECREASED GLUCOSE; Start 10/15/16 at 21:30 Glucose (Glutose) 22.5 gm Q15M PRN PO DECREASED GLUCOSE; Start 10/15/16 at 21: 30 Dextrose (D50w Syringe) 25 ml Q15M PRN IV DECREASED GLUCOSE Last administered on 10/26/16 17:48; Admin Dose 25 ML; Start 10/15/16 at 21:30 Dextrose (D50w Syringe) 50 ml Q15M PRN IV DECREASED GLUCOSE; Start 10/15/16 at 21:30 Glucagon (Glucagen) 1 mg Q15M PRN IM DECREASED GLUCOSE; Start 10/15/16 at 21:30 Glucose (Glutose) 15 gm Q15M PRN BUCCAL DECREASED GLUCOSE; Start 10/15/16 at 21 :30 Metoclopramide HCl (Reglan) 10 mg Q6 IV Last administered on 10/29/16 05:26; Admin Dose 10 MG; Start 10/16/16 at 18:00 Lactulose (Enulose) 30 gm BID GTB Last administered on 10/29/16 08:30; Admin Dose 30 GM; Start 10/16/16 at 21:00 Lansoprazole (Prevacid) 30 mg BID@06,18 GTB Last administered on 10/29/16 05:26 ; Admin Dose 30 MG; Start 10/17/16 at 06:00 Carbidopa/Levodopa (Sinemet (25/ 100)) 1 tab TID GTB Last administered on 08:30; Admin Dose 1 TAB; Start 10/16/16 at 21:00 Lidocaine (Lidocaine 5% Oint) 1 applic TID TOP Last administered on 10/29/16 08 :32; Admin Dose 1 APPLIC; Start 10/16/16 at 21:00 Metoprolol Tartrate (Lopressor) 12.5 mg BID GTB Last administered on 10/29/16 08:31; Admin Dose 12.5 MG; Start 10/16/16 at 21:00 Insulin Aspart (Novolog Insulin Pen) NOVOLOG *MILD* ALGORI... Q6 SC Last administered on 10/25/16 00:39; Admin Dose 1 UNIT; Start 10/24/16 at 18:00 Lactobacillus Acidoph/Bulgaricus (Floranex) 2 tab BID GTB Last administered on 10/29/16 08:30; Admin Dose 2 TAB; Start 10/24/16 at 21:00 Nystatin (Nystatin Susp) 5 ml QID GTB Last administered on 10/29/16 08:31; Admin Dose 5 ML; Start 10/24/16 at 21:00 Levetiracetam (Keppra) 1,000 mg BID PO Last administered on 10/29/16 08:30; Admin Dose 1,000 MG; Start 10/26/16 at 21:00 Demeclocycline HCl (Declomycin) 150 mg BID GTB Last administered on 10/29/16 08 :30; Admin Dose 150 MG; Start 10/26/16 at 21:00 Insulin Glargine (Lantus) 10 unit DAILY@20 SC Last administered on 10/28/16 20: 49; Admin Dose 10 UNIT; Start 10/26/16 at 20:00 LISSA PARK MD Oct 29, 2016 08:52
--- NOTE | 2016-10-29 10:04 | CONS ---
Date/Time of Note Date/Time of Note DATE: 10/29/16 TIME: 10:02 Assessment/Plan Assessment/Plan Additional Assessment/Plan Ventilator settings; AC of 14, tidal volume 500, PEEP of 5, 30% FiO2. Assessment recommendations; next 1. Patient admitted for UTI and sepsis with interval resolution. 2. History of chronic respiratory failure due to anoxic brain injury. 3. Status post craniotomy in the past for intracranial bleed. 4. Stable seizure disorder. 5. Hyponatremia. 6. Hypertension. 7. Diabetes. Demeclocycline has been discontinued. Continue current ventilator settings and other supportive measures. Follow serum sodium. Patient awaiting discharge to group home. Consultation Date/Type/Reason Admit Date/Time Oct 10, 2016 at 13:53 Initial Consult Date 10/10/16 Type of Consultation: Pulmonary Referring Provider: MADDY HOPKINS MD 24 HR Interval Summary Free Text/Dictation Patient condition remains stable. Remains unresponsive. Remains ventilator dependent. Has remained hemodynamically stable. General examination; middle aged man, on ventilator via tracheostomy. Unresponsive. Currently in no distress. Exam/Review of Systems Vital Signs Vitals Vital Signs Date Time Temp Pulse Resp B/P Pulse Ox O2 Delivery O2 Flow Rate FiO2 10/29/16 08:53 59 10/29/16 07:45 98.1 18 158/80 98 10/29/16 07:30 30 Intake and Output 10/28/16 10/28/16 10/29/16 15:00 23:00 07:00 Intake Total 440 ml Output Total 450 ml Balance -10 ml Exam HEENT examination; supple neck, no JVD. No lymphadenopathy. Midline trachea. No thyromegaly. Tracheostomy in place with clean insertion site. There is a well-healed frontal craniotomy scar. Chest examination; clear to auscultation bilaterally. S1-S2 audible, no murmurs. Regular rhythm. Abdomen examination; soft, nondistended. No organomegaly. Bowel sounds audible. G-tube in place. Extremity examination; no peripheral edema. Pulses 1+ bilaterally. 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 Results Result Diagram: 10/29/16 0615 10/29/16 0615 Results 24 hrs Laboratory Tests Test 10/28/16 12:00 10/28/16 12:04 10/28/16 17:05 10/28/16 20:37 Anion Gap 11 Blood Urea Nitrogen 9 Calcium Level 7.9 L Carbon Dioxide Level 24 Chloride Level 98 Creatinine 0.30 L Glucose Level 89 Potassium Level 4.2 Sodium Level 129 L Bedside Glucose 90 106 105 Test 10/28/16 23:27 10/29/16 05:25 10/29/16 06:15 Bedside Glucose 107 109 Anion Gap 11 Basophils # 0.1 Basophils % 1.1 Blood Urea Nitrogen 8 Calcium Level 7.9 L Carbon Dioxide Level 24 Chloride Level 94 L Creatinine 0.29 L Eosinophils # 0.1 Eosinophils % 2.1 Glucose Level 100 Hematocrit 28.8 L Hemoglobin 9.9 L Lymphocytes # 0.6 L Lymphocytes % 11.0 L Mean Corpuscular Hemoglobin 30.0 Mean Corpuscular Hemoglobin Concent 34.4 Mean Corpuscular Volume 87.3 Mean Platelet Volume 9.0 Monocytes # 0.7 Monocytes % 11.5 H Neutrophils # 4.1 Neutrophils % 72.5 Nucleated Red Blood Cells # 0.0 Nucleated Red Blood Cells % 0.0 Platelet Count 333 # Potassium Level 3.9 Red Blood Count 3.30 L Red Cell Distribution Width 14.6 H Sodium Level 125 L White Blood Count 5.6 Medications Medications Current Medications Ondansetron HCl (Zofran Inj) 4 mg Q6H PRN IV NAUSEA AND/OR VOMITING Last administered on 10/16/16 09:08; Admin Dose 4 MG; Start 10/10/16 at 14:00 Nitroglycerin (Nitroglycerin (Sl Tab) 0.4 Mg) 1 tab Q5M PRN SL CHEST PAIN; Start 10/10/16 at 14:00 Acetaminophen (Tylenol Supp) 650 mg Q4H PRN [place] PAIN LEVEL 1-3 OR FEVER Last administered on 10/16/16 22:11; Admin Dose 650 MG; Start 10/10/16 at 14:00 Morphine Sulfate (morphine) 2 mg Q4H PRN IV PAIN LEVEL 7-10; Start 10/10/16 at 14:00 Lorazepam (Ativan) 1 mg Q2H PRN IV ANXIETY Last administered on 10/15/16 20:27 ; Admin Dose 1 MG; Start 10/10/16 at 14:00 Docusate Sodium (Colace) 100 mg Q12H PRN PO CONSTIPATION; Start 10/10/16 at 14: 00 Hydralazine HCl (Apresoline) 10 mg Q6H PRN IV ELEVATED BLOOD PRESSURE Last administered on 10/24/16 11:31; Admin Dose 10 MG; Start 10/10/16 at 19:00 Atorvastatin Calcium (Lipitor) 40 mg QHS GTB Last administered on 10/28/16 20: 39; Admin Dose 40 MG; Start 10/15/16 at 21:00 Benazepril HCl (Lotensin) 10 mg DAILY GTB Last administered on 10/29/16 08:31; Admin Dose 10 MG; Start 10/15/16 at 12:00 Docusate Sodium (Colace Liquid Cup) 200 mg DAILY PRN GTB CONSTIPATION Last administered on 10/16/16 08:44; Admin Dose 200 MG; Start 10/15/16 at 12:00 Ferrous Sulfate (Feosol Liquid Cup) 330 mg DAILY GTB Last administered on 08:31; Admin Dose 330 MG; Start 10/16/16 at 09:00 Hydralazine HCl (Apresoline) 25 mg Q6H PRN GTB ELEVATED BLOOD PRESSURE Last administered on 10/27/16 12:46; Admin Dose 25 MG; Start 10/15/16 at 12:00 Mineral Oil (Fleet Mineral Oil Enema) 133 ml DAILY PRN [place] CONSTIPATION Last administered on 10/16/16 03:54; Admin Dose 133 ML; Start 10/15/16 at 12:00 Multivitamins Therapeutic (Theragran) 1 tab DAILY PO Last administered on 08:30; Admin Dose 1 TAB; Start 10/15/16 at 12:00 Potassium Chloride (Potassium Chloride Pwd/Soln) 40 meq DAILY GTB Last administered on 10/29/16 08:30; Admin Dose 40 MEQ; Start 10/16/16 at 09:00 Miscellaneous Information 1 ea NOTE XX ; Start 10/15/16 at 21:30 Glucose (Glutose) 15 gm Q15M PRN PO DECREASED GLUCOSE; Start 10/15/16 at 21:30 Glucose (Glutose) 22.5 gm Q15M PRN PO DECREASED GLUCOSE; Start 10/15/16 at 21: 30 Dextrose (D50w Syringe) 25 ml Q15M PRN IV DECREASED GLUCOSE Last administered on 10/26/16 17:48; Admin Dose 25 ML; Start 10/15/16 at 21:30 Dextrose (D50w Syringe) 50 ml Q15M PRN IV DECREASED GLUCOSE; Start 10/15/16 at 21:30 Glucagon (Glucagen) 1 mg Q15M PRN IM DECREASED GLUCOSE; Start 10/15/16 at 21:30 Glucose (Glutose) 15 gm Q15M PRN BUCCAL DECREASED GLUCOSE; Start 10/15/16 at 21 :30 Metoclopramide HCl (Reglan) 10 mg Q6 IV Last administered on 10/29/16 05:26; Admin Dose 10 MG; Start 10/16/16 at 18:00 Lactulose (Enulose) 30 gm BID GTB Last administered on 10/29/16 08:30; Admin Dose 30 GM; Start 10/16/16 at 21:00 Lansoprazole (Prevacid) 30 mg BID@,18 GTB Last administered on 10/29/16 05:26 ; Admin Dose 30 MG; Start 10/17/16 at 06:00 Carbidopa/Levodopa (Sinemet (25/ 100)) 1 tab TID GTB Last administered on 08:30; Admin Dose 1 TAB; Start 10/16/16 at 21:00 Lidocaine (Lidocaine 5% Oint) 1 applic TID TOP Last administered on 10/29/16 08 :32; Admin Dose 1 APPLIC; Start 10/16/16 at 21:00 Metoprolol Tartrate (Lopressor) 12.5 mg BID GTB Last administered on 10/29/16 08:31; Admin Dose 12.5 MG; Start 10/16/16 at 21:00 Insulin Aspart (Novolog Insulin Pen) NOVOLOG *MILD* ALGORI... Q6 SC Last administered on 10/25/16 00:39; Admin Dose 1 UNIT; Start 10/24/16 at 18:00 Lactobacillus Acidoph/Bulgaricus (Floranex) 2 tab BID GTB Last administered on 10/29/16 08:30; Admin Dose 2 TAB; Start 10/24/16 at 21:00 Nystatin (Nystatin Susp) 5 ml QID GTB Last administered on 10/29/16 08:31; Admin Dose 5 ML; Start 10/24/16 at 21:00 Levetiracetam (Keppra) 1,000 mg BID PO Last administered on 10/29/16 08:30; Admin Dose 1,000 MG; Start 10/26/16 at 21:00 Insulin Glargine (Lantus) 10 unit DAILY@20 SC Last administered on 10/28/16 20: 49; Admin Dose 10 UNIT; Start 10/26/16 at 20:00 Demeclocycline HCl (Declomycin) 300 mg BID GTB Last administered on 10/29/16 09 :12; Admin Dose 300 MG; Start 10/29/16 at 09:00 JUANA DE LEÓN Oct 29, 2016 10:04
[2016-10-29 12:34] LABS: POTASSIUM 4.6 mmol/L (3.5-5.1)
[2016-10-29 12:36] LABS: CREATININE 0.29 mg/dl (0.61-1.24)
[2016-10-29 12:37] LABS: CALCIUM 7.8 mg/dl (8.4-10.2)
--- NOTE | 2016-10-29 16:05 | PN ---
Date/Time of Note Date/Time of Note DATE: 10/29/16 TIME: 16:05 Assessment/Plan VTE Prophylaxis VTE Prophylaxis Intervention: other Lines/Catheters IV [facility] Type (from [facility] Saline Lock Urinary Cath still in place: Yes Reason Cath still needed: urinary retention Assessment/Plan Assessment/Plan - Leukocytosis, s/p emesis, continue empiric abx for possible aspiration. - Dr. Mas is following gastroenterology consultation. - Sepsis secondary to urinary tract infection and healthcare-acquired pneumonia. - per Dr. Sales in infectious disease consultation. Continue antibiotics per ID. - Ventilator dependent respiratory failure. - per Dr. Unger in pulmonology standpoint. Continue bronchodilators and ventilatory support. 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 - Seizure disorder. Continue Keppra. - seizure precautions - Hypertension, continue benazepril and hydralazine. - Hyponatremia 2 SIADH. - per Dr. Tovar in nephrology consultation. - History of cerebrovascular accident. Continue sequential compression device for deep venous thrombosis prophylaxis and Pepcid for peptic ulcer disease prophylaxis. Further recommendations based on clinical course. Plan of care discussed with Dr. Desir. Subjective 24 Hr Interval Summary Subjective hx not possible: pt non-verbal Constitutional: requiring IVF, requiring O2 Exam/Review of Systems Vital Signs Vitals Vital Signs Date Time Temp Pulse Resp B/P Pulse Ox O2 Delivery O2 Flow Rate FiO2 10/29/16 15:16 98.8 58 18 158/75 99 10/29/16 13:20 30 Intake and Output 10/28/16 10/28/16 10/29/16 15:00 23:00 07:00 Intake Total 440 ml Output Total 450 ml Balance -10 ml Exam Constitutional: non-verbal Eyes: nl sclera ENMT: nl external ears & nose Respiratory: clear to auscultation, other (tfach intact) Gastrointestinal: non-tender, other (gt intact), soft Musculoskeletal: muscle weakness Extremities: normal pulses Neurological: unresponsive Skin: other Lymph: nontender Results Result Diagram: 10/29/16 0615 10/29/16 1208 Results 24 hrs Laboratory Tests Test 10/28/16 17:05 10/28/16 20:37 10/28/16 23:27 10/29/16 05:25 Bedside Glucose 106 105 107 109 Test 10/29/16 06:15 10/29/16 12:08 10/29/16 15:39 Anion Gap 11 13 Basophils # 0.1 Basophils % 1.1 Blood Urea Nitrogen 8 8 Calcium Level 7.9 L 7.8 L Carbon Dioxide Level 24 23 Chloride Level 94 L 93 L Creatinine 0.29 L 0.29 L Eosinophils # 0.1 Eosinophils % 2.1 Glucose Level 100 120 Hematocrit 28.8 L Hemoglobin 9.9 L Lymphocytes # 0.6 L Lymphocytes % 11.0 L Mean Corpuscular Hemoglobin 30.0 Mean Corpuscular Hemoglobin Concent 34.4 Mean Corpuscular Volume 87.3 Mean Platelet Volume 9.0 Monocytes # 0.7 Monocytes % 11.5 H Neutrophils # 4.1 Neutrophils % 72.5 Nucleated Red Blood Cells # 0.0 Nucleated Red Blood Cells % 0.0 Platelet Count 333 # Potassium Level 3.9 4.6 Red Blood Count 3.30 L Red Cell Distribution Width 14.6 H Sodium Level 125 L 124 L White Blood Count 5.6 Bedside Glucose 119 Medications Medications Current Medications Ondansetron HCl (Zofran Inj) 4 mg Q6H PRN IV NAUSEA AND/OR VOMITING Last administered on 10/16/16 09:08; Admin Dose 4 MG; Start 10/10/16 at 14:00 Nitroglycerin (Nitroglycerin (Sl Tab) 0.4 Mg) 1 tab Q5M PRN SL CHEST PAIN; Start 10/10/16 at 14:00 Acetaminophen (Tylenol Supp) 650 mg Q4H PRN [place] PAIN LEVEL 1-3 OR FEVER Last administered on 10/16/16 22:11; Admin Dose 650 MG; Start 10/10/16 at 14:00 Morphine Sulfate (morphine) 2 mg Q4H PRN IV PAIN LEVEL 7-10; Start 10/10/16 at 14:00 Lorazepam (Ativan) 1 mg Q2H PRN IV ANXIETY Last administered on 10/15/16 20:27 ; Admin Dose 1 MG; Start 10/10/16 at 14:00 Docusate Sodium (Colace) 100 mg Q12H PRN PO CONSTIPATION; Start 10/10/16 at 14: 00 Hydralazine HCl (Apresoline) 10 mg Q6H PRN IV ELEVATED BLOOD PRESSURE Last administered on 10/24/16 11:31; Admin Dose 10 MG; Start 10/10/16 at 19:00 Atorvastatin Calcium (Lipitor) 40 mg QHS GTB Last administered on 10/28/16 20: 39; Admin Dose 40 MG; Start 10/15/16 at 21:00 Benazepril HCl (Lotensin) 10 mg DAILY GTB Last administered on 10/29/16 08:31; Admin Dose 10 MG; Start 10/15/16 at 12:00 Docusate Sodium (Colace Liquid Cup) 200 mg DAILY PRN GTB CONSTIPATION Last administered on 10/16/16 08:44; Admin Dose 200 MG; Start 10/15/16 at 12:00 Ferrous Sulfate (Feosol Liquid Cup) 330 mg DAILY GTB Last administered on 08:31; Admin Dose 330 MG; Start 10/16/16 at 09:00 Hydralazine HCl (Apresoline) 25 mg Q6H PRN GTB ELEVATED BLOOD PRESSURE Last administered on 10/27/16 12:46; Admin Dose 25 MG; Start 10/15/16 at 12:00 Mineral Oil (Fleet Mineral Oil Enema) 133 ml DAILY PRN [place] CONSTIPATION Last administered on 10/16/16 03:54; Admin Dose 133 ML; Start 10/15/16 at 12:00 Multivitamins Therapeutic (Theragran) 1 tab DAILY PO Last administered on 08:30; Admin Dose 1 TAB; Start 10/15/16 at 12:00 Potassium Chloride (Potassium Chloride Pwd/Soln) 40 meq DAILY GTB Last administered on 10/29/16 08:30; Admin Dose 40 MEQ; Start 10/16/16 at 09:00 Miscellaneous Information 1 ea NOTE XX ; Start 10/15/16 at 21:30 Glucose (Glutose) 15 gm Q15M PRN PO DECREASED GLUCOSE; Start 10/15/16 at 21:30 Glucose (Glutose) 22.5 gm Q15M PRN PO DECREASED GLUCOSE; Start 10/15/16 at 21: 30 Dextrose (D50w Syringe) 25 ml Q15M PRN IV DECREASED GLUCOSE Last administered on 10/26/16 17:48; Admin Dose 25 ML; Start 10/15/16 at 21:30 Dextrose (D50w Syringe) 50 ml Q15M PRN IV DECREASED GLUCOSE; Start 10/15/16 at 21:30 Glucagon (Glucagen) 1 mg Q15M PRN IM DECREASED GLUCOSE; Start 10/15/16 at 21:30 Glucose (Glutose) 15 gm Q15M PRN BUCCAL DECREASED GLUCOSE; Start 10/15/16 at 21 :30 Metoclopramide HCl (Reglan) 10 mg Q6 IV Last administered on 10/29/16 05:26; Admin Dose 10 MG; Start 10/16/16 at 18:00 Lactulose (Enulose) 30 gm BID GTB Last administered on 10/29/16 08:30; Admin Dose 30 GM; Start 10/16/16 at 21:00 Lansoprazole (Prevacid) 30 mg BID@18 GTB Last administered on 10/29/16 05:26 ; Admin Dose 30 MG; Start 10/17/16 at 06:00 Carbidopa/Levodopa (Sinemet (25/ 100)) 1 tab TID GTB Last administered on 08:30; Admin Dose 1 TAB; Start 10/16/16 at 21:00 Lidocaine (Lidocaine 5% Oint) 1 applic TID TOP Last administered on 10/29/16 08 :32; Admin Dose 1 APPLIC; Start 10/16/16 at 21:00 Metoprolol Tartrate (Lopressor) 12.5 mg BID GTB Last administered on 10/29/16 08:31; Admin Dose 12.5 MG; Start 10/16/16 at 21:00 Insulin Aspart (Novolog Insulin Pen) NOVOLOG *MILD* ALGORI... Q6 SC Last administered on 10/25/16 00:39; Admin Dose 1 UNIT; Start 10/24/16 at 18:00 Lactobacillus Acidoph/Bulgaricus (Floranex) 2 tab BID GTB Last administered on 10/29/16 08:30; Admin Dose 2 TAB; Start 10/24/16 at 21:00 Nystatin (Nystatin Susp) 5 ml QID GTB Last administered on 10/29/16 08:31; Admin Dose 5 ML; Start 10/24/16 at 21:00 Levetiracetam (Keppra) 1,000 mg BID PO Last administered on 10/29/16 08:30; Admin Dose 1,000 MG; Start 10/26/16 at 21:00 Insulin Glargine (Lantus) 10 unit DAILY@20 SC Last administered on 10/28/16 20: 49; Admin Dose 10 UNIT; Start 10/26/16 at 20:00 Demeclocycline HCl (Declomycin) 300 mg BID GTB Last administered on 10/29/16 09 :12; Admin Dose 300 MG; Start 10/29/16 at 09:00 KENYATTA CAPPS Oct 29, 2016 16:05
--- NOTE | 2016-10-29 16:14 | PN ---
Date/Time of Note Date/Time of Note DATE: 10/29/16 TIME: 16:11 Assessment/Plan VTE Prophylaxis VTE Prophylaxis Intervention: other (per pmd ) Lines/Catheters IV Catheter Type (from Nrsg): Saline Lock Urinary Cath still in place: Yes Reason Cath still needed: other (indicate) (per pmd) Assessment/Plan Assessment/Plan improved vomitting ct abd neg for gi issues plan increase gt feeding Subjective 24 Hr Interval Summary Free Text/Dictation pt non verbal Exam/Review of Systems Vital Signs Vitals Vital Signs Date Time Temp Pulse Resp B/P Pulse Ox O2 Delivery O2 Flow Rate FiO2 10/29/16 15:16 98.8 58 18 158/75 99 10/29/16 13:20 30 Intake and Output 10/28/16 10/28/16 10/29/16 15:00 23:00 07:00 Intake Total 440 ml Output Total 450 ml Balance -10 ml Exam pt o/e non verbal ct abd neg Results Result Diagram: 10/29/16 0615 10/29/16 1208 Results 24 hrs Laboratory Tests Test 10/28/16 17:05 10/28/16 20:37 10/28/16 23:27 10/29/16 05:25 Bedside Glucose 106 105 107 109 Test 10/29/16 06:15 10/29/16 12:08 10/29/16 15:39 Anion Gap 11 13 Basophils # 0.1 Basophils % 1.1 Blood Urea Nitrogen 8 8 Calcium Level 7.9 L 7.8 L Carbon Dioxide Level 24 23 Chloride Level 94 L 93 L Creatinine 0.29 L 0.29 L Eosinophils # 0.1 Eosinophils % 2.1 Glucose Level 100 120 Hematocrit 28.8 L Hemoglobin 9.9 L Lymphocytes # 0.6 L Lymphocytes % 11.0 L Mean Corpuscular Hemoglobin 30.0 Mean Corpuscular Hemoglobin Concent 34.4 Mean Corpuscular Volume 87.3 Mean Platelet Volume 9.0 Monocytes # 0.7 Monocytes % 11.5 H Neutrophils # 4.1 Neutrophils % 72.5 Nucleated Red Blood Cells # 0.0 Nucleated Red Blood Cells % 0.0 Platelet Count 333 # Potassium Level 3.9 4.6 Red Blood Count 3.30 L Red Cell Distribution Width 14.6 H Sodium Level 125 L 124 L White Blood Count 5.6 Bedside Glucose 119 Medications Medications Current Medications Ondansetron HCl (Zofran Inj) 4 mg Q6H PRN IV NAUSEA AND/OR VOMITING Last administered on 10/16/16 09:08; Admin Dose 4 MG; Start 10/10/16 at 14:00 Nitroglycerin (Nitroglycerin (Sl Tab) 0.4 Mg) 1 tab Q5M PRN SL CHEST PAIN; Start 10/10/16 at 14:00 Acetaminophen (Tylenol Supp) 650 mg Q4H PRN [place] PAIN LEVEL 1-3 OR FEVER Last administered on 10/16/16 22:11; Admin Dose 650 MG; Start 10/10/16 at 14:00 Morphine Sulfate (morphine) 2 mg Q4H PRN IV PAIN LEVEL 7-10; Start 10/10/16 at 14:00 Lorazepam (Ativan) 1 mg Q2H PRN IV ANXIETY Last administered on 10/15/16 20:27 ; Admin Dose 1 MG; Start 10/10/16 at 14:00 Docusate Sodium (Colace) 100 mg Q12H PRN PO CONSTIPATION; Start 10/10/16 at 14: 00 Hydralazine HCl (Apresoline) 10 mg Q6H PRN IV ELEVATED BLOOD PRESSURE Last administered on 10/24/16 11:31; Admin Dose 10 MG; Start 10/10/16 at 19:00 Atorvastatin Calcium (Lipitor) 40 mg QHS GTB Last administered on 10/28/16 20: 39; Admin Dose 40 MG; Start 10/15/16 at 21:00 Benazepril HCl (Lotensin) 10 mg DAILY GTB Last administered on 10/29/16 08:31; Admin Dose 10 MG; Start 10/15/16 at 12:00 Docusate Sodium (Colace Liquid Cup) 200 mg DAILY PRN GTB CONSTIPATION Last administered on 10/16/16 08:44; Admin Dose 200 MG; Start 10/15/16 at 12:00 Ferrous Sulfate (Feosol Liquid Cup) 330 mg DAILY GTB Last administered on 08:31; Admin Dose 330 MG; Start 10/16/16 at 09:00 Hydralazine HCl (Apresoline) 25 mg Q6H PRN GTB ELEVATED BLOOD PRESSURE Last administered on 10/27/16 12:46; Admin Dose 25 MG; Start 10/15/16 at 12:00 Mineral Oil (Fleet Mineral Oil Enema) 133 ml DAILY PRN [place] CONSTIPATION Last administered on 10/16/16 03:54; Admin Dose 133 ML; Start 10/15/16 at 12:00 Multivitamins Therapeutic (Theragran) 1 tab DAILY PO Last administered on 08:30; Admin Dose 1 TAB; Start 10/15/16 at 12:00 Potassium Chloride (Potassium Chloride Pwd/Soln) 40 meq DAILY GTB Last administered on 10/29/16 08:30; Admin Dose 40 MEQ; Start 10/16/16 at 09:00 Miscellaneous Information 1 ea NOTE XX ; Start 10/15/16 at 21:30 Glucose (Glutose) 15 gm Q15M PRN PO DECREASED GLUCOSE; Start 10/15/16 at 21:30 Glucose (Glutose) 22.5 gm Q15M PRN PO DECREASED GLUCOSE; Start 10/15/16 at 21: 30 Dextrose (D50w Syringe) 25 ml Q15M PRN IV DECREASED GLUCOSE Last administered on 10/26/16 17:48; Admin Dose 25 ML; Start 10/15/16 at 21:30 Dextrose (D50w Syringe) 50 ml Q15M PRN IV DECREASED GLUCOSE; Start 10/15/16 at 21:30 Glucagon (Glucagen) 1 mg Q15M PRN IM DECREASED GLUCOSE; Start 10/15/16 at 21:30 Glucose (Glutose) 15 gm Q15M PRN BUCCAL DECREASED GLUCOSE; Start 10/15/16 at 21 :30 Metoclopramide HCl (Reglan) 10 mg Q6 IV Last administered on 10/29/16 05:26; Admin Dose 10 MG; Start 10/16/16 at 18:00 Lactulose (Enulose) 30 gm BID GTB Last administered on 10/29/16 08:30; Admin Dose 30 GM; Start 10/16/16 at 21:00 Lansoprazole (Prevacid) 30 mg BID@18 GTB Last administered on 10/29/16 05:26 ; Admin Dose 30 MG; Start 10/17/16 at 06:00 Carbidopa/Levodopa (Sinemet (25/ 100)) 1 tab TID GTB Last administered on 08:30; Admin Dose 1 TAB; Start 10/16/16 at 21:00 Lidocaine (Lidocaine 5% Oint) 1 applic TID TOP Last administered on 10/29/16 08 :32; Admin Dose 1 APPLIC; Start 10/16/16 at 21:00 Metoprolol Tartrate (Lopressor) 12.5 mg BID GTB Last administered on 10/29/16 08:31; Admin Dose 12.5 MG; Start 10/16/16 at 21:00 Insulin Aspart (Novolog Insulin Pen) NOVOLOG *MILD* ALGORI... Q6 SC Last administered on 10/25/16 00:39; Admin Dose 1 UNIT; Start 10/24/16 at 18:00 Lactobacillus Acidoph/Bulgaricus (Floranex) 2 tab BID GTB Last administered on 10/29/16 08:30; Admin Dose 2 TAB; Start 10/24/16 at 21:00 Nystatin (Nystatin Susp) 5 ml QID GTB Last administered on 10/29/16 08:31; Admin Dose 5 ML; Start 10/24/16 at 21:00 Levetiracetam (Keppra) 1,000 mg BID PO Last administered on 10/29/16 08:30; Admin Dose 1,000 MG; Start 10/26/16 at 21:00 Insulin Glargine (Lantus) 10 unit DAILY@20 SC Last administered on 10/28/16 20: 49; Admin Dose 10 UNIT; Start 10/26/16 at 20:00 Demeclocycline HCl (Declomycin) 300 mg BID GTB Last administered on 10/29/16 09 :12; Admin Dose 300 MG; Start 10/29/16 at 09:00 DARNELL HERNANDEZ MD Oct 29, 2016 16:14
[2016-10-29] MEDS: ATORVASTATIN 40 MG TAB GTB SCH (20:43)
[2016-10-29] MEDS: INSULIN GLARGINE [LANtus] 3 ML PEN SC SCH (21:11)
[2016-10-29] MEDS: ONDANSETRON 4 MG INJ IV PRN (21:15)
[2016-10-29] MEDS: hydrALAzine 20 MG INJ IV PRN (23:43)
[2016-10-30] VITALS (26 sets, daily range): BP systolic 96–145; BP diastolic 62–85; PULSE 76–113; RESP 14–23
[2016-10-30] MEDS: METOCLOPRAMIDE 10 MG INJ IV SCH ×3 (05:35→18:02)
[2016-10-30] MEDS: LANSOPRAZOLE 30 MG CAP GTB SCH ×2 (05:35→18:02)
[2016-10-30] MEDS: INSULIN ASPART [NOVOLOG] 3 ML PEN SC SCH ×3 (05:43→18:34)
[2016-10-30 07:19] LABS: ALBUMIN 3.1 g/dl (3.3-4.9); POTASSIUM 4.9 mmol/L (3.5-5.1)
[2016-10-30 07:21] LABS: ALBUMIN/GLOBULIN RATIO 0.96; BILIRUBIN,INDIRECT 0.6 mg/dl (0-1.1); BILIRUBIN,TOTAL 0.6 mg/dl (0.2-1.3); CREATININE 0.34 mg/dl (0.61-1.24); TOTAL PROTEIN 6.3 g/dl (6.1-8.1)
[2016-10-30 07:22] LABS: CALCIUM 8.2 mg/dl (8.4-10.2)
[2016-10-30] MEDS ORDERED: TOLVAPTAN 15 MG TABLET PO STA (07:59)
[2016-10-30] MEDS: LACTULOSE 30ML CUP GTB SCH ×2 (08:39→20:59)
[2016-10-30] MEDS: DEMECLOCYCLINE 150 MG TAB GTB SCH ×2 (08:39→20:57)
[2016-10-30] MEDS: LACTOBACILLUS CHEW TAB GTB SCH ×2 (08:39→20:57)
[2016-10-30] MEDS: FERROUS SULFATE 60 MG/ML 5ML CUP GTB SCH (08:39)
[2016-10-30] MEDS: POTASSIUM CHLORIDE 20 MEQ POWDER FOR ORAL SOLN GTB SCH (08:40)
[2016-10-30] MEDS: NYSTATIN SUSP 5 ML CUP GTB SCH ×4 (08:40→20:58)
[2016-10-30] MEDS: METOPROLOL 25 MG TAB GTB SCH ×2 (08:40→20:57)
[2016-10-30] MEDS: CARBIDOPA/LEVODOPA (25/100) TAB GTB SCH ×3 (08:40→20:58)
[2016-10-30] MEDS: BENAZEPRIL 10 MG TAB GTB SCH (08:40)
[2016-10-30] MEDS: LEVETIRACETAM 500 MG TAB PO SCH ×2 (08:41→20:58)
[2016-10-30] MEDS: LIDOCAINE 5% 35 GM OINT TOP SCH ×3 (08:41→20:59)
[2016-10-30] MEDS: MULTIVITAMINS THERAPEUTIC TAB PO SCH (08:41)
--- NOTE | 2016-10-30 10:46 | CONS ---
Date/Time of Note Date/Time of Note DATE: 10/30/16 TIME: 10:44 Assessment/Plan Assessment/Plan Additional Assessment/Plan Ventilator settings; AC of 14, tidal volume 500, PEEP of 5, 30% FiO2. Assessment and recommendations; 1. Patient admitted with UTI and sepsis off antibiotics now. 2. History of craniotomy patient remains completely unresponsive, ventilator dependent. 3. Stable seizure disorder. 4. Hyponatremia. Patient started on tolvaptan. 5. Stable hypertension. Continue current supportive care. Monitor serum sodium. She is awaiting transfer to rehab facility. Consultation Date/Type/Reason Admit Date/Time Oct 10, 2016 at 13:53 Initial Consult Date 10/10/16 Type of Consultation: Pulmonary Referring Provider: MADDY HOPKINS MD 24 HR Interval Summary Free Text/Dictation Patient's condition remains stable. Remains unresponsive. No seizure activity noted. General examination; middle-aged man on ventilator via tracheostomy remains unresponsive. No distress noted. Exam/Review of Systems Vital Signs Vitals Vital Signs Date Time Temp Pulse Resp B/P Pulse Ox O2 Delivery O2 Flow Rate FiO2 10/30/16 09:51 101 14 97 30 10/30/16 07:36 98.3 115/75 Intake and Output 10/29/16 10/29/16 10/30/16 15:00 23:00 07:00 Intake Total 440 ml 460 ml 300 ml Output Total 500 ml 800 ml 750 ml Balance -60 ml -340 ml -450 ml Exam HEENT examination; supple neck, no JVD. No lymphadenopathy. Midline trachea. No thyromegaly. Tracheostomy in place. There is a well-healed frontal craniotomy scar. Chest examination; clear to auscultation bilaterally. S1-S2 audible, no murmurs. Regular rhythm. Abdomen examination; soft, nondistended. No organomegaly. G-tube in place. Bowel sounds audible. Extremity examination; no peripheral edema. 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 Results Result Diagram: 10/29/16 0615 10/30/16 0620 Results 24 hrs Laboratory Tests Test 10/29/16 12:08 10/29/16 15:39 10/29/16 17:26 10/29/16 20:40 Anion Gap 13 Blood Urea Nitrogen 8 Calcium Level 7.8 L Carbon Dioxide Level 23 Chloride Level 93 L Creatinine 0.29 L Glucose Level 120 Potassium Level 4.6 Sodium Level 124 L Bedside Glucose 119 114 113 Test 10/29/16 23:50 10/30/16 05:34 10/30/16 06:20 10/30/16 07:57 Bedside Glucose 128 193 224 H Alanine Aminotransferase (ALT/SGPT) 30 Albumin 3.1 L Albumin/Globulin Ratio 0.96 Alkaline Phosphatase 154 H Anion Gap 16 Aspartate Amino Transf (AST/SGOT) 36 Blood Urea Nitrogen 10 Calcium Level 8.2 L Carbon Dioxide Level 20 L Chloride Level 89 L Creatinine 0.34 L Direct Bilirubin 0.00 Globulin 3.20 Glucose Level 210 Indirect Bilirubin 0.6 Potassium Level 4.9 Sodium Level 120 L Total Bilirubin 0.6 Total Protein 6.3 Medications Medications Current Medications Ondansetron HCl (Zofran Inj) 4 mg Q6H PRN IV NAUSEA AND/OR VOMITING Last administered on 10/29/16 21:15; Admin Dose 4 MG; Start 10/10/16 at 14:00 Nitroglycerin (Nitroglycerin (Sl Tab) 0.4 Mg) 1 tab Q5M PRN SL CHEST PAIN; Start 10/10/16 at 14:00 Acetaminophen (Tylenol Supp) 650 mg Q4H PRN OR PAIN LEVEL 1-3 OR FEVER Last administered on 10/16/16 22:11; Admin Dose 650 MG; Start 10/10/16 at 14:00 Morphine Sulfate (morphine) 2 mg Q4H PRN IV PAIN LEVEL 7-10; Start 10/10/16 at 14:00 Lorazepam (Ativan) 1 mg Q2H PRN IV ANXIETY Last administered on 10/15/16 20:27 ; Admin Dose 1 MG; Start 10/10/16 at 14:00 Docusate Sodium (Colace) 100 mg Q12H PRN PO CONSTIPATION; Start 10/10/16 at 14: 00 Hydralazine HCl (Apresoline) 10 mg Q6H PRN IV ELEVATED BLOOD PRESSURE Last administered on 10/29/16 23:43; Admin Dose 10 MG; Start 10/10/16 at 19:00 Atorvastatin Calcium (Lipitor) 40 mg QHS GTB Last administered on 10/29/16 20: 43; Admin Dose 40 MG; Start 10/15/16 at 21:00 Benazepril HCl (Lotensin) 10 mg DAILY GTB Last administered on 10/30/16 08:40; Admin Dose 10 MG; Start 10/15/16 at 12:00 Docusate Sodium (Colace Liquid Cup) 200 mg DAILY PRN GTB CONSTIPATION Last administered on 10/16/16 08:44; Admin Dose 200 MG; Start 10/15/16 at 12:00 Ferrous Sulfate (Feosol Liquid Cup) 330 mg DAILY GTB Last administered on 08:39; Admin Dose 330 MG; Start 10/16/16 at 09:00 Hydralazine HCl (Apresoline) 25 mg Q6H PRN GTB ELEVATED BLOOD PRESSURE Last administered on 10/27/16 12:46; Admin Dose 25 MG; Start 10/15/16 at 12:00 Mineral Oil (Fleet Mineral Oil Enema) 133 ml DAILY PRN [place] CONSTIPATION Last administered on 10/16/16 03:54; Admin Dose 133 ML; Start 10/15/16 at 12:00 Multivitamins Therapeutic (Theragran) 1 tab DAILY PO Last administered on 08:41; Admin Dose 1 TAB; Start 10/15/16 at 12:00 Potassium Chloride (Potassium Chloride Pwd/Soln) 40 meq DAILY GTB Last administered on 10/30/16 08:40; Admin Dose 40 MEQ; Start 10/16/16 at 09:00 Miscellaneous Information 1 ea NOTE XX ; Start 10/15/16 at 21:30 Glucose (Glutose) 15 gm Q15M PRN PO DECREASED GLUCOSE; Start 10/15/16 at 21:30 Glucose (Glutose) 22.5 gm Q15M PRN PO DECREASED GLUCOSE; Start 10/15/16 at 21: 30 Dextrose (D50w Syringe) 25 ml Q15M PRN IV DECREASED GLUCOSE Last administered on 10/26/16 17:48; Admin Dose 25 ML; Start 10/15/16 at 21:30 Dextrose (D50w Syringe) 50 ml Q15M PRN IV DECREASED GLUCOSE; Start 10/15/16 at 21:30 Glucagon (Glucagen) 1 mg Q15M PRN IM DECREASED GLUCOSE; Start 10/15/16 at 21:30 Glucose (Glutose) 15 gm Q15M PRN BUCCAL DECREASED GLUCOSE; Start 10/15/16 at 21 :30 Metoclopramide HCl (Reglan) 10 mg Q6 IV Last administered on 10/30/16 05:35; Admin Dose 10 MG; Start 10/16/16 at 18:00 Lactulose (Enulose) 30 gm BID GTB Last administered on 10/30/16 08:39; Admin Dose 30 GM; Start 10/16/16 at 21:00 Lansoprazole (Prevacid) 30 mg BID@,18 GTB Last administered on 10/30/16 05:35 ; Admin Dose 30 MG; Start 10/17/16 at 06:00 Carbidopa/Levodopa (Sinemet (25/ 100)) 1 tab TID GTB Last administered on 08:40; Admin Dose 1 TAB; Start 10/16/16 at 21:00 Lidocaine (Lidocaine 5% Oint) 1 applic TID TOP Last administered on 10/30/16 08 :41; Admin Dose 1 APPLIC; Start 10/16/16 at 21:00 Metoprolol Tartrate (Lopressor) 12.5 mg BID GTB Last administered on 10/30/16 08:40; Admin Dose 12.5 MG; Start 10/16/16 at 21:00 Insulin Aspart (Novolog Insulin Pen) NOVOLOG *MILD* ALGORI... Q6 SC Last administered on 10/30/16 05:43; Admin Dose 2 UNIT; Start 10/24/16 at 18:00 Lactobacillus Acidoph/Bulgaricus (Floranex) 2 tab BID GTB Last administered on 10/30/16 08:39; Admin Dose 2 TAB; Start 10/24/16 at 21:00 Nystatin (Nystatin Susp) 5 ml QID GTB Last administered on 10/30/16 08:40; Admin Dose 5 ML; Start 10/24/16 at 21:00 Levetiracetam (Keppra) 1,000 mg BID PO Last administered on 10/30/16 08:41; Admin Dose 1,000 MG; Start 10/26/16 at 21:00 Insulin Glargine (Lantus) 10 unit DAILY@20 SC Last administered on 10/29/16 21: 11; Admin Dose 10 UNIT; Start 10/26/16 at 20:00 Demeclocycline HCl (Declomycin) 300 mg BID GTB Last administered on 10/30/16 08 :39; Admin Dose 300 MG; Start 10/29/16 at 09:00 JUANA DE LEÓN Oct 30, 2016 10:46
[2016-10-30] MEDS: ACETAMINOPHEN 650 MG SUPP PR PRN (14:05)
--- NOTE | 2016-10-30 15:53 | CONS ---
Date/Time of Note Date/Time of Note DATE: 10/30/16 TIME: 15:48 Assessment/Plan Assessment/Plan Additional Assessment/Plan 1. Severe hyponatremia with a sodium of 119 on admission with seizures, possibly acute on chronic hyponatremia versus acute severe hyponatremia.- pt went from hyponatremia to hypernatremia with treatment with 3% saline and one dose of tolvaptan - then Improved to normal today wtih D5W IVF and DDAVP 0.2mg PO x2 dose 10/15/16- on 10/16/16 again Na dropped to 119 s/p Tovlaptan 15 mg PO x1 on 10/18/16-now Na 143- decreased Demeclocycline to 150mg BID on 10/26/2016- again Na dropped to 120 on 10/30/2016 2. Seizures secondary to severe hyponatremia. 3. Sepsis secondary to bilateral pneumonia. 4. Ventilator-dependent respiratory failure, status post tracheostomy, on vent. 5. History of a previous brain tumor, had surgery. Currently, status post ventriculoperitoneal shunt in place. 6. History of a previous cerebellar cerebrovascular accident. PLAN: pt received 3 % saline and tolvaptan one dose on 10/10 and 10/11- went into polyuria, Na went from hyponatremia to hypernatremia- now improved to normal with D5W IVF and 2 dose of DDAVP 0.2mg- again today 10/16- na dropped from 140 to 122- given 3% hypertonic saline for another 12 hr - did not respond well, Na again dropped to 119- One dose of tolvaptan 15 mg X 1 10/18/16- Na dropped to 130 10/22/2016- tolvaptan 15 gram po x 1 dose on 09/21/16- now Na normal, - will decreased demeclocycline to 150mg BID on 10/26/16- Na dropped to 125 10/29/16- increased demeclocycline to 300mg PO BID on 10/29/2016- Na again dropped to 120- will give Tolvaptan 15 mg PO x 1 dose today 10/30/2016 onTube feeding continue demeclocycline to avoid use of tolvaptan monitor Na, pt has acute on chronic hyponatremia ventilator care as per pulmonary will follow up Consultation Date/Type/Reason Admit Date/Time Oct 10, 2016 at 13:53 Initial Consult Date 10/10/16 Type of Consultation: NEPHROLOGY Reason for Consultation Severe Hyponatremia Referring Provider: MADDY HOPKINS MD 24 HR Interval Summary Free Text/Dictation Na again dropped to 120, pt is having high residual with G tube feeding, non verbal Exam/Review of Systems Vital Signs Vitals Vital Signs Date Time Temp Pulse Resp B/P Pulse Ox O2 Delivery O2 Flow Rate FiO2 10/30/16 15:26 98.2 102 18 96/67 94 10/30/16 14:41 30 Intake and Output 10/29/16 10/29/16 10/30/16 14:59 22:59 06:59 Intake Total 440 ml 460 ml 300 ml Output Total 500 ml 800 ml 750 ml Balance -60 ml -340 ml -450 ml Exam HEENT: Tracheostomy site is clear. LUNGS: Bilateral coarse breath sounds with bilateral basilar rales present and lower lobe rhonchi present. HEART: S1, S2, tachycardia, no murmur. ABDOMEN: Soft. G-tube in place. EXTREMITIES: No clubbing, cyanosis, or edema. The patient is very debilitated. , + steve catheter in place Results Result Diagram: 10/29/16 0615 10/30/16 0620 Results 24 hrs Laboratory Tests Test 10/29/16 17:26 10/29/16 20:40 10/29/16 23:50 10/30/16 05:34 Bedside Glucose 114 113 128 193 Test 10/30/16 06:20 10/30/16 07:57 10/30/16 11:58 Alanine Aminotransferase (ALT/SGPT) 30 Albumin 3.1 L Albumin/Globulin Ratio 0.96 Alkaline Phosphatase 154 H Anion Gap 16 Aspartate Amino Transf (AST/SGOT) 36 Blood Urea Nitrogen 10 Calcium Level 8.2 L Carbon Dioxide Level 20 L Chloride Level 89 L Creatinine 0.34 L Direct Bilirubin 0.00 Globulin 3.20 Glucose Level 210 Indirect Bilirubin 0.6 Potassium Level 4.9 Sodium Level 120 L Total Bilirubin 0.6 Total Protein 6.3 Bedside Glucose 224 H 214 Medications Medications Current Medications Ondansetron HCl (Zofran Inj) 4 mg Q6H PRN IV NAUSEA AND/OR VOMITING Last administered on 10/29/16t 21:15; Admin Dose 4 MG; Start 10/10/16 at 14:00 Nitroglycerin (Nitroglycerin (Sl Tab) 0.4 Mg) 1 tab Q5M PRN SL CHEST PAIN; Start 10/10/16 at 14:00 Acetaminophen (Tylenol Supp) 650 mg Q4H PRN [place] PAIN LEVEL 1-3 OR FEVER Last administered on 10/30/16 14:05; Admin Dose 650 MG; Start 10/10/16 at 14:00 Morphine Sulfate (morphine) 2 mg Q4H PRN IV PAIN LEVEL 7-10; Start 10/10/16 at 14:00 Lorazepam (Ativan) 1 mg Q2H PRN IV ANXIETY Last administered on 10/15/16 20:27 ; Admin Dose 1 MG; Start 10/10/16 at 14:00 Docusate Sodium (Colace) 100 mg Q12H PRN PO CONSTIPATION; Start 10/10/16 at 14: 00 Hydralazine HCl (Apresoline) 10 mg Q6H PRN IV ELEVATED BLOOD PRESSURE Last administered on 10/29/16 23:43; Admin Dose 10 MG; Start 10/10/16 at 19:00 Atorvastatin Calcium (Lipitor) 40 mg QHS GTB Last administered on 10/29/16 20: 43; Admin Dose 40 MG; Start 10/15/16 at 21:00 Benazepril HCl (Lotensin) 10 mg DAILY GTB Last administered on 10/30/16 08:40; Admin Dose 10 MG; Start 10/15/16 at 12:00 Docusate Sodium (Colace Liquid Cup) 200 mg DAILY PRN GTB CONSTIPATION Last administered on 10/16/16 08:44; Admin Dose 200 MG; Start 10/15/16 at 12:00 Ferrous Sulfate (Feosol Liquid Cup) 330 mg DAILY GTB Last administered on 08:39; Admin Dose 330 MG; Start 10/16/16 at 09:00 Hydralazine HCl (Apresoline) 25 mg Q6H PRN GTB ELEVATED BLOOD PRESSURE Last administered on 10/27/16 12:46; Admin Dose 25 MG; Start 10/15/16 at 12:00 Mineral Oil (Fleet Mineral Oil Enema) 133 ml DAILY PRN [place] CONSTIPATION Last administered on 10/16/16 03:54; Admin Dose 133 ML; Start 10/15/16 at 12:00 Multivitamins Therapeutic (Theragran) 1 tab DAILY PO Last administered on 08:41; Admin Dose 1 TAB; Start 10/15/16 at 12:00 Potassium Chloride (Potassium Chloride Pwd/Soln) 40 meq DAILY GTB Last administered on 10/30/16 08:40; Admin Dose 40 MEQ; Start 10/16/16 at 09:00 Miscellaneous Information 1 ea NOTE XX ; Start 10/15/16 at 21:30 Glucose (Glutose) 15 gm Q15M PRN PO DECREASED GLUCOSE; Start 10/15/16 at 21:30 Glucose (Glutose) 22.5 gm Q15M PRN PO DECREASED GLUCOSE; Start 10/15/16 at 21: 30 Dextrose (D50w Syringe) 25 ml Q15M PRN IV DECREASED GLUCOSE Last administered on 10/26/16 17:48; Admin Dose 25 ML; Start 10/15/16 at 21:30 Dextrose (D50w Syringe) 50 ml Q15M PRN IV DECREASED GLUCOSE; Start 10/15/16 at 21:30 Glucagon (Glucagen) 1 mg Q15M PRN IM DECREASED GLUCOSE; Start 10/15/16 at 21:30 Glucose (Glutose) 15 gm Q15M PRN BUCCAL DECREASED GLUCOSE; Start 10/15/16 at 21 :30 Metoclopramide HCl (Reglan) 10 mg Q6 IV Last administered on 10/30/16 11:59; Admin Dose 10 MG; Start 10/16/16 at 18:00 Lactulose (Enulose) 30 gm BID GTB Last administered on 10/30/16 08:39; Admin Dose 30 GM; Start 10/16/16 at 21:00 Lansoprazole (Prevacid) 30 mg BID@18 GTB Last administered on 10/30/16 05:35 ; Admin Dose 30 MG; Start 10/17/16 at 06:00 Carbidopa/Levodopa (Sinemet (25/ 100)) 1 tab TID GTB Last administered on 14:04; Admin Dose 1 TAB; Start 10/16/16 at 21:00 Lidocaine (Lidocaine 5% Oint) 1 applic TID TOP Last administered on 10/30/16 14 :05; Admin Dose 1 APPLIC; Start 10/16/16 at 21:00 Metoprolol Tartrate (Lopressor) 12.5 mg BID GTB Last administered on 10/30/16 08:40; Admin Dose 12.5 MG; Start 10/16/16 at 21:00 Insulin Aspart (Novolog Insulin Pen) NOVOLOG *MILD* ALGORI... Q6 SC Last administered on 10/30/16 12:11; Admin Dose 2 UNIT; Start 10/24/16 at 18:00 Lactobacillus Acidoph/Bulgaricus (Floranex) 2 tab BID GTB Last administered on 10/30/16 08:39; Admin Dose 2 TAB; Start 10/24/16 at 21:00 Nystatin (Nystatin Susp) 5 ml QID GTB Last administered on 10/30/16 14:04; Admin Dose 5 ML; Start 10/24/16 at 21:00 Levetiracetam (Keppra) 1,000 mg BID PO Last administered on 10/30/16 08:41; Admin Dose 1,000 MG; Start 10/26/16 at 21:00 Insulin Glargine (Lantus) 10 unit DAILY@20 SC Last administered on 10/29/16 21: 11; Admin Dose 10 UNIT; Start 10/26/16 at 20:00 Demeclocycline HCl (Declomycin) 300 mg BID GTB Last administered on 10/30/16 08 :39; Admin Dose 300 MG; Start 10/29/16 at 09:00 LISSA PARK MD Oct 30, 2016 15:53
--- NOTE | 2016-10-30 16:25 | PN ---
Date/Time of Note Date/Time of Note DATE: 10/30/16 TIME: 16:17 Assessment/Plan VTE Prophylaxis VTE Prophylaxis Intervention: SCD's Lines/Catheters IV C[facility]ter [facility]from [facility] Urinary Cath still in place: Yes Reason Cath still needed: urinary retention Assessment/Plan Chief Complaint/Hosp Course ASSESSMENT AND PLAN: -Persistent Hyponatremia 2 SIADH. Patient is followed by Dr. Tovar in nephrology consultation. - Dysphagia with PEG. Dr. Mas is following gastroenterology consultation. -Status post aspiration, status post treatment. - Sepsis secondary to urinary tract infection and healthcare-acquired pneumonia. Status post treatment. patient is followed by Dr. Sales in infectious disease consultation. - Ventilator dependent respiratory failure. Dr. Unger is following from pulmonology standpoint. Continue bronchodilators and ventilatory support. 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 - Seizure disorder. Continue Keppra. - Hypertension, continue benazepril and hydralazine. - History of cerebrovascular accident. I spoke to patient's at the bedside regarding patient's condition and plan of care using a medical interpreter, all questions answered. Continue sequential compression device for deep venous thrombosis prophylaxis and Pepcid for peptic ulcer disease prophylaxis. Further recommendations based on clinical course. Plan of care discussed with Dr. Desir. Problems: Subjective 24 Hr Interval Summary Free Text/Dictation Patient was tolerating a G-tube feeding at a low rate of 20 cc/h, status post emesis last night, tolerates G-tube feedings so far today, hyponatremic with sodium of 120, status post Tolvaptan today Exam/Review of Systems Vital Signs Vitals Vital Signs Date Time Temp Pulse Resp B/P Pulse Ox O2 Delivery O2 Flow Rate FiO2 10/30/16 15:26 98.2 102 18 96/67 94 10/30/16 14:41 30 Intake and Output 10/29/16 10/29/16 10/30/16 15:00 23:00 07:00 Intake Total 440 ml 460 ml 300 ml Output Total 500 ml 800 ml 750 ml Balance -60 ml -340 ml -450 ml Exam GENERAL: This is a well-developed male on ventilator support, does not respond to verbal internal stimuli. HEENT: Head is atraumatic, normocephalic. Pupils equal, round, reactive to light and accommodation. NECK: Supple. Tracheostomy at the base of the neck. CHEST: Scattered rhonchi bilaterally, slightly diminished at the bases. No wheezes noted. HEART: Normal S1, S2. No murmurs, gallops, clicks, rubs noted. ABDOMEN: Protuberant, soft, nondistended, nontender. Bowel sounds present. EXTREMITIES: Mild edema. There is no clubbing or cyanosis. Pulses equal bilaterally 2+. SKIN: There is no rash, petechiae noted. NEUROLOGIC: The patient is obtunded. Results Result Diagram: 10/29/16 0615 10/30/16 0620 Results 24 hrs Laboratory Tests Test 10/29/16 17:26 10/29/16 20:40 10/29/16 23:50 10/30/16 05:34 Bedside Glucose 114 113 128 193 Test 10/30/16 06:20 10/30/16 07:57 10/30/16 11:58 Alanine Aminotransferase (ALT/SGPT) 30 Albumin 3.1 L Albumin/Globulin Ratio 0.96 Alkaline Phosphatase 154 H Anion Gap 16 Aspartate Amino Transf (AST/SGOT) 36 Blood Urea Nitrogen 10 Calcium Level 8.2 L Carbon Dioxide Level 20 L Chloride Level 89 L Creatinine 0.34 L Direct Bilirubin 0.00 Globulin 3.20 Glucose Level 210 Indirect Bilirubin 0.6 Potassium Level 4.9 Sodium Level 120 L Total Bilirubin 0.6 Total Protein 6.3 Bedside Glucose 224 H 214 Medications Medications Current Medications Ondansetron HCl (Zofran Inj) 4 mg Q6H PRN IV NAUSEA AND/OR VOMITING Last administered on 10/29/16 21:15; Admin Dose 4 MG; Start 10/10/16 at 14:00 Nitroglycerin (Nitroglycerin (Sl Tab) 0.4 Mg) 1 tab Q5M PRN SL CHEST PAIN; Start 10/10/16 at 14:00 Acetaminophen (Tylenol Supp) 650 mg Q4H PRN [place] PAIN LEVEL 1-3 OR FEVER Last administered on 10/30/16 14:05; Admin Dose 650 MG; Start 10/10/16 at 14:00 Morphine Sulfate (morphine) 2 mg Q4H PRN IV PAIN LEVEL 7-10; Start 10/10/16 at 14:00 Lorazepam (Ativan) 1 mg Q2H PRN IV ANXIETY Last administered on 10/15/16 20:27 ; Admin Dose 1 MG; Start 10/10/16 at 14:00 Docusate Sodium (Colace) 100 mg Q12H PRN PO CONSTIPATION; Start 10/10/16 at 14: 00 Hydralazine HCl (Apresoline) 10 mg Q6H PRN IV ELEVATED BLOOD PRESSURE Last administered on 10/29/16 23:43; Admin Dose 10 MG; Start 10/10/16 at 19:00 Atorvastatin Calcium (Lipitor) 40 mg QHS GTB Last administered on 10/29/16 20: 43; Admin Dose 40 MG; Start 10/15/16 at 21:00 Benazepril HCl (Lotensin) 10 mg DAILY GTB Last administered on 10/30/16 08:40; Admin Dose 10 MG; Start 10/15/16 at 12:00 Docusate Sodium (Colace Liquid Cup) 200 mg DAILY PRN GTB CONSTIPATION Last administered on 10/16/16 08:44; Admin Dose 200 MG; Start 10/15/16 at 12:00 Ferrous Sulfate (Feosol Liquid Cup) 330 mg DAILY GTB Last administered on 08:39; Admin Dose 330 MG; Start 10/16/16 at 09:00 Hydralazine HCl (Apresoline) 25 mg Q6H PRN GTB ELEVATED BLOOD PRESSURE Last administered on 10/27/16 12:46; Admin Dose 25 MG; Start 10/15/16 at 12:00 Mineral Oil (Fleet Mineral Oil Enema) 133 ml DAILY PRN [place] CONSTIPATION Last administered on 10/16/16 03:54; Admin Dose 133 ML; Start 10/15/16 at 12:00 Multivitamins Therapeutic (Theragran) 1 tab DAILY PO Last administered on 08:41; Admin Dose 1 TAB; Start 10/15/16 at 12:00 Potassium Chloride (Potassium Chloride Pwd/Soln) 40 meq DAILY GTB Last administered on 10/30/16 08:40; Admin Dose 40 MEQ; Start 10/16/16 at 09:00 Miscellaneous Information 1 ea NOTE XX ; Start 10/15/16 at 21:30 Glucose (Glutose) 15 gm Q15M PRN PO DECREASED GLUCOSE; Start 10/15/16 at 21:30 Glucose (Glutose) 22.5 gm Q15M PRN PO DECREASED GLUCOSE; Start 10/15/16 at 21: 30 Dextrose (D50w Syringe) 25 ml Q15M PRN IV DECREASED GLUCOSE Last administered on 10/26/16 17:48; Admin Dose 25 ML; Start 10/15/16 at 21:30 Dextrose (D50w Syringe) 50 ml Q15M PRN IV DECREASED GLUCOSE; Start 10/15/16 at 21:30 Glucagon (Glucagen) 1 mg Q15M PRN IM DECREASED GLUCOSE; Start 10/15/16 at 21:30 Glucose (Glutose) 15 gm Q15M PRN BUCCAL DECREASED GLUCOSE; Start 10/15/16 at 21 :30 Metoclopramide HCl (Reglan) 10 mg Q6 IV Last administered on 10/30/16 11:59; Admin Dose 10 MG; Start 10/16/16 at 18:00 Lactulose (Enulose) 30 gm BID GTB Last administered on 10/30/16 08:39; Admin Dose 30 GM; Start 10/16/16 at 21:00 Lansoprazole (Prevacid) 30 mg BID@,18 GTB Last administered on 10/30/16 05:35 ; Admin Dose 30 MG; Start 10/17/16 at 06:00 Carbidopa/Levodopa (Sinemet (25/ 100)) 1 tab TID GTB Last administered on 14:04; Admin Dose 1 TAB; Start 10/16/16 at 21:00 Lidocaine (Lidocaine 5% Oint) 1 applic TID TOP Last administered on 10/30/16 14 :05; Admin Dose 1 APPLIC; Start 10/16/16 at 21:00 Metoprolol Tartrate (Lopressor) 12.5 mg BID GTB Last administered on 10/30/16 08:40; Admin Dose 12.5 MG; Start 10/16/16 at 21:00 Insulin Aspart (Novolog Insulin Pen) NOVOLOG *MILD* ALGORI... Q6 SC Last administered on 10/30/16 12:11; Admin Dose 2 UNIT; Start 10/24/16 at 18:00 Lactobacillus Acidoph/Bulgaricus (Floranex) 2 tab BID GTB Last administered on 10/30/16 08:39; Admin Dose 2 TAB; Start 10/24/16 at 21:00 Nystatin (Nystatin Susp) 5 ml QID GTB Last administered on 10/30/16 14:04; Admin Dose 5 ML; Start 10/24/16 at 21:00 Levetiracetam (Keppra) 1,000 mg BID PO Last administered on 10/30/16 08:41; Admin Dose 1,000 MG; Start 10/26/16 at 21:00 Insulin Glargine (Lantus) 10 unit DAILY@20 SC Last administered on 10/29/16 21: 11; Admin Dose 10 UNIT; Start 10/26/16 at 20:00 Demeclocycline HCl (Declomycin) 300 mg BID GTB Last administered on 10/30/16 08 :39; Admin Dose 300 MG; Start 10/29/16 at 09:00 ALTHEA ACOSTA Oct 30, 2016 16:25
[2016-10-30] MEDS: ATORVASTATIN 40 MG TAB GTB SCH (20:58)
[2016-10-30] MEDS: INSULIN GLARGINE [LANtus] 3 ML PEN SC SCH (21:18)
[2016-10-31] VITALS (22 sets, daily range): BP systolic 100–119; BP diastolic 56–71; PULSE 79–97; RESP 14–16
[2016-10-31] MEDS: METOCLOPRAMIDE 10 MG INJ IV SCH ×4 (00:59→17:24)
[2016-10-31] MEDS: INSULIN ASPART [NOVOLOG] 3 ML PEN SC SCH ×4 (01:06→17:27)
[2016-10-31] MEDS: LANSOPRAZOLE 30 MG CAP GTB SCH ×2 (05:26→17:24)
[2016-10-31 06:12] LABS: ADD SCAN DIFF NO
[2016-10-31 06:26] LABS: BASOPHIL # 0.1 10^3/ul (0.0-0.1); BASOPHILS % 0.6 % (0.0-2.0); EOSINOPHILS % 0.4 % (0.0-7.0); HEMATOCRIT 32.9 % (42.0-52.0); HEMOGLOBIN 11.2 g/dl (14.0-18.0); LYMPHOCYTES # 0.7 10^3/ul (0.8-2.9); LYMPHOCYTES % 5.9 % (15.0-51.0); MEAN CORPUSCULAR HEMOGLOBIN 29.9 pg (29.0-33.0); MEAN PLATELET VOLUME 8.9 fl (7.4-10.4); MONOCYTE # 1.1 10^3/ul (0.3-0.9); MONOCYTES % 9.5 % (0.0-11.0); NEUTROPHIL # 9.1 10^3/ul (1.6-7.5); NEUTROPHILS % 81.9 % (39.0-77.0); PLATELET COUNT 384 10^3/UL (140-415); RED BLOOD COUNT 3.74 10^6/ul (4.70-6.10); RED CELL DISTRIBUTION WIDTH 15.2 % (11.5-14.5); WHITE BLOOD COUNT 11.1 10^3/ul (4.8-10.8)
[2016-10-31] MEDS: CARBIDOPA/LEVODOPA (25/100) TAB GTB SCH ×3 (08:05→21:14)
[2016-10-31] MEDS: LEVETIRACETAM 500 MG TAB PO SCH ×2 (08:05→21:14)
[2016-10-31] MEDS: MULTIVITAMINS THERAPEUTIC TAB PO SCH (08:05)
[2016-10-31] MEDS: DEMECLOCYCLINE 150 MG TAB GTB SCH ×2 (08:05→21:14)
[2016-10-31] MEDS: LACTOBACILLUS CHEW TAB GTB SCH ×2 (08:05→21:14)
[2016-10-31] MEDS: METOPROLOL 25 MG TAB GTB SCH ×2 (08:06→21:15)
[2016-10-31] MEDS: BENAZEPRIL 10 MG TAB GTB SCH (08:06)
[2016-10-31] MEDS: NYSTATIN SUSP 5 ML CUP GTB SCH ×4 (08:07→21:13)
[2016-10-31] MEDS: LACTULOSE 30ML CUP GTB SCH ×2 (08:07→21:13)
[2016-10-31] MEDS: FERROUS SULFATE 60 MG/ML 5ML CUP GTB SCH (08:07)
[2016-10-31] MEDS: LIDOCAINE 5% 35 GM OINT TOP SCH ×3 (08:08→21:14)
[2016-10-31 08:11] LABS: CREATININE 0.36 mg/dl (0.61-1.24)
[2016-10-31 08:12] LABS: CALCIUM 8.7 mg/dl (8.4-10.2)
[2016-10-31] MEDS: POTASSIUM CHLORIDE 20 MEQ POWDER FOR ORAL SOLN GTB SCH (08:13)
--- NOTE | 2016-10-31 10:39 | PN ---
Date/Time of Note Date/Time of Note DATE: 10/31/16 TIME: 10:38 Assessment/Plan VTE Prophylaxis VTE Prophylaxis Intervention: other Lines/Catheters IV [facility] Type [facility]from [facility] Urinary Cath still in place: Yes Reason Cath still needed: skin wounds contaminated by urine Assessment/Plan Chief Complaint/Hosp Course 1. Sepsis secondary to urinary tract infection and healthcare-acquired pneumonia. Patient is followed by Dr. Sales in infectious disease consultation. Continue antibiotics per ID. 2. Ventilator dependent respiratory failure. Dr. Unger is following from pulmonology standpoint. Continue bronchodilators and ventilatory support. 3. 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 4. Seizure disorder. Continue Keppra. 5. Hypertension, continue benazepril and hydralazine. 5. Severe hypernatremia. The patient is followed by Dr. Tovar in nephrology consultation. Continue IV fluids per nephrology. 6. Hypokalemia. Potassium replaced. 7. History of cerebrovascular accident. Continue sequential compression device for deep venous thrombosis prophylaxis and Pepcid for peptic ulcer disease prophylaxis. Problems: Subjective 24 Hr Interval Summary Free Text/Dictation Patient has no complaints Exam/Review of Systems Vital Signs Vitals Vital Signs Date Time Temp Pulse Resp B/P Pulse Ox O2 Delivery O2 Flow Rate FiO2 10/31/16 08:13 97 10/31/16 08:00 30 10/31/16 07:31 98.0 14 114/71 97 Intake and Output 10/30/16 10/30/16 10/31/16 15:00 23:00 07:00 Intake Total 440 ml 560 ml Output Total 3000 ml 1800 ml Balance -2560 ml -1240 ml Exam Constitutional: well developed Head: atraumatic, normocephalic Respiratory: clear to auscultation Cardiovascular: regular rate and rhythm Gastrointestinal: non-tender, soft Results Result Diagram: 10/31/16 0541 10/31/16 0541 Results 24 hrs Laboratory Tests Test 10/30/16 11:58 10/30/16 18:31 10/30/16 20:14 10/31/16 00:30 Bedside Glucose 214 195 173 204 Test 10/31/16 00:31 10/31/16 05:26 10/31/16 05:41 Bedside Glucose 178 159 Anion Gap 15 Basophils # 0.1 Basophils % 0.6 Blood Urea Nitrogen 6 L Calcium Level 8.7 Carbon Dioxide Level 23 Chloride Level 103 # Creatinine 0.36 L Eosinophils # 0.0 Eosinophils % 0.4 Glucose Level 160 Hematocrit 32.9 L Hemoglobin 11.2 L Lymphocytes # 0.7 L Lymphocytes % 5.9 L Mean Corpuscular Hemoglobin 29.9 Mean Corpuscular Hemoglobin Concent 34.0 Mean Corpuscular Volume 88.0 Mean Platelet Volume 8.9 Monocytes # 1.1 H Monocytes % 9.5 Neutrophils # 9.1 H Neutrophils % 81.9 H Nucleated Red Blood Cells # 0.0 Nucleated Red Blood Cells % 0.0 Platelet Count 384 Potassium Level 4.0 Red Blood Count 3.74 L Red Cell Distribution Width 15.2 H Sodium Level 137 # White Blood Count 11.1 #H Medications Medications Current Medications Ondansetron HCl (Zofran Inj) 4 mg Q6H PRN IV NAUSEA AND/OR VOMITING Last administered on 10/29/16 21:15; Admin Dose 4 MG; Start 10/10/16 at 14:00 Nitroglycerin (Nitroglycerin (Sl Tab) 0.4 Mg) 1 tab Q5M PRN SL CHEST PAIN; Start 10/10/16 at 14:00 Acetaminophen (Tylenol Supp) 650 mg Q4H PRN [place] PAIN LEVEL 1-3 OR FEVER Last administered on 10/30/16 14:05; Admin Dose 650 MG; Start 10/10/16 at 14:00 Morphine Sulfate (morphine) 2 mg Q4H PRN IV PAIN LEVEL 7-10; Start 10/10/16 at 14:00 Lorazepam (Ativan) 1 mg Q2H PRN IV ANXIETY Last administered on 10/15/16 20:27 ; Admin Dose 1 MG; Start 10/10/16 at 14:00 Docusate Sodium (Colace) 100 mg Q12H PRN PO CONSTIPATION; Start 10/10/16 at 14: 00 Hydralazine HCl (Apresoline) 10 mg Q6H PRN IV ELEVATED BLOOD PRESSURE Last administered on 10/29/16 23:43; Admin Dose 10 MG; Start 10/10/16 at 19:00 Atorvastatin Calcium (Lipitor) 40 mg QHS GTB Last administered on 10/30/16 20: 58; Admin Dose 40 MG; Start 10/15/16 at 21:00 Benazepril HCl (Lotensin) 10 mg DAILY GTB Last administered on 10/31/16 08:06; Admin Dose 10 MG; Start 10/15/16 at 12:00 Docusate Sodium (Colace Liquid Cup) 200 mg DAILY PRN GTB CONSTIPATION Last administered on 10/16/16 08:44; Admin Dose 200 MG; Start 10/15/16 at 12:00 Ferrous Sulfate (Feosol Liquid Cup) 330 mg DAILY GTB Last administered on 08:07; Admin Dose 330 MG; Start 10/16/16 at 09:00 Hydralazine HCl (Apresoline) 25 mg Q6H PRN GTB ELEVATED BLOOD PRESSURE Last administered on 10/27/16 12:46; Admin Dose 25 MG; Start 10/15/16 at 12:00 Mineral Oil (Fleet Mineral Oil Enema) 133 ml DAILY PRN [place] CONSTIPATION Last administered on 10/16/16 03:54; Admin Dose 133 ML; Start 10/15/16 at 12:00 Multivitamins Therapeutic (Theragran) 1 tab DAILY PO Last administered on 08:05; Admin Dose 1 TAB; Start 10/15/16 at 12:00 Miscellaneous Information 1 ea NOTE XX ; Start 10/15/16 at 21:30 Glucose (Glutose) 15 gm Q15M PRN PO DECREASED GLUCOSE; Start 10/15/16 at 21:30 Glucose (Glutose) 22.5 gm Q15M PRN PO DECREASED GLUCOSE; Start 10/15/16 at 21: 30 Dextrose (D50w Syringe) 25 ml Q15M PRN IV DECREASED GLUCOSE Last administered on 10/26/16 17:48; Admin Dose 25 ML; Start 10/15/16 at 21:30 Dextrose (D50w Syringe) 50 ml Q15M PRN IV DECREASED GLUCOSE; Start 10/15/16 at 21:30 Glucagon (Glucagen) 1 mg Q15M PRN IM DECREASED GLUCOSE; Start 10/15/16 at 21:30 Glucose (Glutose) 15 gm Q15M PRN BUCCAL DECREASED GLUCOSE; Start 10/15/16 at 21 :30 Metoclopramide HCl (Reglan) 10 mg Q6 IV Last administered on 10/31/16 05:26; Admin Dose 10 MG; Start 10/16/16 at 18:00 Lactulose (Enulose) 30 gm BID GTB Last administered on 10/31/16 08:07; Admin Dose 30 GM; Start 10/16/16 at 21:00 Lansoprazole (Prevacid) 30 mg BID@06,18 GTB Last administered on 10/31/16 05:26 ; Admin Dose 30 MG; Start 10/17/16 at 06:00 Carbidopa/Levodopa (Sinemet (25/ 100)) 1 tab TID GTB Last administered on 08:05; Admin Dose 1 TAB; Start 10/16/16 at 21:00 Lidocaine (Lidocaine 5% Oint) 1 applic TID TOP Last administered on 10/31/16 08 :08; Admin Dose 1 APPLIC; Start 10/16/16 at 21:00 Metoprolol Tartrate (Lopressor) 12.5 mg BID GTB Last administered on 10/31/16 08:06; Admin Dose 12.5 MG; Start 10/16/16 at 21:00 Insulin Aspart (Novolog Insulin Pen) NOVOLOG *MILD* ALGORI... Q6 SC Last administered on 10/31/16 05:28; Admin Dose 1 UNIT; Start 10/24/16 at 18:00 Lactobacillus Acidoph/Bulgaricus (Floranex) 2 tab BID GTB Last administered on 10/31/16 08:05; Admin Dose 2 TAB; Start 10/24/16 at 21:00 Nystatin (Nystatin Susp) 5 ml QID GTB Last administered on 10/31/16 08:07; Admin Dose 5 ML; Start 10/24/16 at 21:00 Levetiracetam (Keppra) 1,000 mg BID PO Last administered on 10/31/16 08:05; Admin Dose 1,000 MG; Start 10/26/16 at 21:00 Insulin Glargine (Lantus) 10 unit DAILY@20 SC Last administered on 10/30/16 21: 18; Admin Dose 10 UNIT; Start 10/26/16 at 20:00 Demeclocycline HCl (Declomycin) 300 mg BID GTB Last administered on 10/31/16 08 :05; Admin Dose 300 MG; Start 10/29/16 at 09:00 Potassium Chloride (Potassium Chloride Pwd/Soln) 40 meq DAILY GTB Last administered on 10/31/16t 08:13; Admin Dose 40 MEQ; Start 10/31/16 at 09:00 NORY BARGER Oct 31, 2016 10:39
--- NOTE | 2016-10-31 12:23 | CONS ---
Date/Time of Note Date/Time of Note DATE: 10/31/16 TIME: 12:21 Assessment/Plan Assessment/Plan Additional Assessment/Plan 1. Severe hyponatremia with a sodium of 119 on admission with seizures, possibly acute on chronic hyponatremia versus acute severe hyponatremia.- pt went from hyponatremia to hypernatremia with treatment with 3% saline and one dose of tolvaptan - then Improved to normal today wtih D5W IVF and DDAVP 0.2mg PO x2 dose 10/15/16- on 10/16/16 again Na dropped to 119 s/p Tovlaptan 15 mg PO x1 on 10/18/16-now Na 143- decreased Demeclocycline to 150mg BID on 10/26/2016- again Na dropped to 120 on 10/30/2016-Now Na 137 2. Seizures secondary to severe hyponatremia. 3. Sepsis secondary to bilateral pneumonia. 4. Ventilator-dependent respiratory failure, status post tracheostomy, on vent. 5. History of a previous brain tumor, had surgery. Currently, status post ventriculoperitoneal shunt in place. 6. History of a previous cerebellar cerebrovascular accident. PLAN: pt received 3 % saline and tolvaptan one dose on 10/10 and 10/11- went into polyuria, Na went from hyponatremia to hypernatremia- now improved to normal with D5W IVF and 2 dose of DDAVP 0.2mg- again today 10/16- na dropped from 140 to 122- given 3% hypertonic saline for another 12 hr - did not respond well, Na again dropped to 119- One dose of tolvaptan 15 mg X 1 10/18/16- Na dropped to 130 10/22/2016- tolvaptan 15 gram po x 1 dose on 09/21/16- now Na normal, - will decreased demeclocycline to 150mg BID on 10/26/16- Na dropped to 125 10/29/16- increased demeclocycline to 300mg PO BID on 10/29/2016- Na again dropped to 120- will give Tolvaptan 15 mg PO x 1 dose on 10/30/2016- Now Na 137 onTube feeding continue demeclocycline to avoid use of tolvaptan monitor Na, pt has acute on chronic hyponatremia ventilator care as per pulmonary will follow up Consultation Date/Type/Reason Admit Date/Time Oct 10, 2016 at 13:53 Initial Consult Date 10/10/16 Type of Consultation: NEPHROLOGY Reason for Consultation Hyponatremia Referring Provider: MADDY HOPKINS MD 24 HR Interval Summary Free Text/Dictation Na improved to 137, s/p one dose of tolvaptan 15mg pO x 1 yesterday Exam/Review of Systems Vital Signs Vitals Vital Signs Date Time Temp Pulse Resp B/P Pulse Ox O2 Delivery O2 Flow Rate FiO2 10/31/16 12:19 82 10/31/16 11:40 98.4 15 119/70 98 10/31/16 08:00 30 Intake and Output 10/30/16 10/30/16 10/31/16 15:00 23:00 07:00 Intake Total 440 ml 560 ml Output Total 3000 ml 1800 ml Balance -2560 ml -1240 ml Exam HEENT: Tracheostomy site is clear. LUNGS: Bilateral coarse breath sounds with bilateral basilar rales present and lower lobe rhonchi present. HEART: S1, S2, tachycardia, no murmur. ABDOMEN: Soft. G-tube in place. EXTREMITIES: No clubbing, cyanosis, or edema. The patient is very debilitated. , + steve catheter in place Results Result Diagram: 10/31/16 0541 10/31/16 0541 Results 24 hrs Laboratory Tests Test 10/30/16 18:31 10/30/16 20:14 10/31/16 00:30 10/31/16 00:31 Bedside Glucose 195 173 204 178 Test 10/31/16 05:26 10/31/16 05:41 10/31/16 11:38 Bedside Glucose 159 158 Anion Gap 15 Basophils # 0.1 Basophils % 0.6 Blood Urea Nitrogen 6 L Calcium Level 8.7 Carbon Dioxide Level 23 Chloride Level 103 # Creatinine 0.36 L Eosinophils # 0.0 Eosinophils % 0.4 Glucose Level 160 Hematocrit 32.9 L Hemoglobin 11.2 L Lymphocytes # 0.7 L Lymphocytes % 5.9 L Mean Corpuscular Hemoglobin 29.9 Mean Corpuscular Hemoglobin Concent 34.0 Mean Corpuscular Volume 88.0 Mean Platelet Volume 8.9 Monocytes # 1.1 H Monocytes % 9.5 Neutrophils # 9.1 H Neutrophils % 81.9 H Nucleated Red Blood Cells # 0.0 Nucleated Red Blood Cells % 0.0 Platelet Count 384 Potassium Level 4.0 Red Blood Count 3.74 L Red Cell Distribution Width 15.2 H Sodium Level 137 # White Blood Count 11.1 #H Medications Medications Current Medications Ondansetron HCl (Zofran Inj) 4 mg Q6H PRN IV NAUSEA AND/OR VOMITING Last administered on 10/29/16 21:15; Admin Dose 4 MG; Start 10/10/16 at 14:00 Nitroglycerin (Nitroglycerin (Sl Tab) 0.4 Mg) 1 tab Q5M PRN SL CHEST PAIN; Start 10/10/16 at 14:00 Acetaminophen (Tylenol Supp) 650 mg Q4H PRN [place] PAIN LEVEL 1-3 OR FEVER Last administered on 10/30/16 14:05; Admin Dose 650 MG; Start 10/10/16 at 14:00 Morphine Sulfate (morphine) 2 mg Q4H PRN IV PAIN LEVEL 7-10; Start 10/10/16 at 14:00 Lorazepam (Ativan) 1 mg Q2H PRN IV ANXIETY Last administered on 10/15/16 20:27 ; Admin Dose 1 MG; Start 10/10/16 at 14:00 Docusate Sodium (Colace) 100 mg Q12H PRN PO CONSTIPATION; Start 10/10/16 at 14: 00 Hydralazine HCl (Apresoline) 10 mg Q6H PRN IV ELEVATED BLOOD PRESSURE Last administered on 10/29/16 23:43; Admin Dose 10 MG; Start 10/10/16 at 19:00 Atorvastatin Calcium (Lipitor) 40 mg QHS GTB Last administered on 10/30/16 20: 58; Admin Dose 40 MG; Start 10/15/16 at 21:00 Benazepril HCl (Lotensin) 10 mg DAILY GTB Last administered on 10/31/16 08:06; Admin Dose 10 MG; Start 10/15/16 at 12:00 Docusate Sodium (Colace Liquid Cup) 200 mg DAILY PRN GTB CONSTIPATION Last administered on 10/16/16 08:44; Admin Dose 200 MG; Start 10/15/16 at 12:00 Ferrous Sulfate (Feosol Liquid Cup) 330 mg DAILY GTB Last administered on 08:07; Admin Dose 330 MG; Start 10/16/16 at 09:00 Hydralazine HCl (Apresoline) 25 mg Q6H PRN GTB ELEVATED BLOOD PRESSURE Last administered on 10/27/16 12:46; Admin Dose 25 MG; Start 10/15/16 at 12:00 Mineral Oil (Fleet Mineral Oil Enema) 133 ml DAILY PRN [place] CONSTIPATION Last administered on 10/16/16 03:54; Admin Dose 133 ML; Start 10/15/16 at 12:00 Multivitamins Therapeutic (Theragran) 1 tab DAILY PO Last administered on 08:05; Admin Dose 1 TAB; Start 10/15/16 at 12:00 Miscellaneous Information 1 ea NOTE XX ; Start 10/15/16 at 21:30 Glucose (Glutose) 15 gm Q15M PRN PO DECREASED GLUCOSE; Start 10/15/16 at 21:30 Glucose (Glutose) 22.5 gm Q15M PRN PO DECREASED GLUCOSE; Start 10/15/16 at 21: 30 Dextrose (D50w Syringe) 25 ml Q15M PRN IV DECREASED GLUCOSE Last administered on 10/26/16 17:48; Admin Dose 25 ML; Start 10/15/16 at 21:30 Dextrose (D50w Syringe) 50 ml Q15M PRN IV DECREASED GLUCOSE; Start 10/15/16 at 21:30 Glucagon (Glucagen) 1 mg Q15M PRN IM DECREASED GLUCOSE; Start 10/15/16 at 21:30 Glucose (Glutose) 15 gm Q15M PRN BUCCAL DECREASED GLUCOSE; Start 10/15/16 at 21 :30 Metoclopramide HCl (Reglan) 10 mg Q6 IV Last administered on 10/31/16 11:35; Admin Dose 10 MG; Start 10/16/16 at 18:00 Lactulose (Enulose) 30 gm BID GTB Last administered on 10/31/16 08:07; Admin Dose 30 GM; Start 10/16/16 at 21:00 Lansoprazole (Prevacid) 30 mg BID@18 GTB Last administered on 10/31/16 05:26 ; Admin Dose 30 MG; Start 10/17/16 at 06:00 Carbidopa/Levodopa (Sinemet (25/ 100)) 1 tab TID GTB Last administered on 08:05; Admin Dose 1 TAB; Start 10/16/16 at 21:00 Lidocaine (Lidocaine 5% Oint) 1 applic TID TOP Last administered on 10/31/16 08 :08; Admin Dose 1 APPLIC; Start 10/16/16 at 21:00 Metoprolol Tartrate (Lopressor) 12.5 mg BID GTB Last administered on 10/31/16 08:06; Admin Dose 12.5 MG; Start 10/16/16 at 21:00 Insulin Aspart (Novolog Insulin Pen) NOVOLOG *MILD* ALGORI... Q6 SC Last administered on 10/31/16 11:40; Admin Dose 1 UNIT; Start 10/24/16 at 18:00 Lactobacillus Acidoph/Bulgaricus (Floranex) 2 tab BID GTB Last administered on 10/31/16 08:05; Admin Dose 2 TAB; Start 10/24/16 at 21:00 Nystatin (Nystatin Susp) 5 ml QID GTB Last administered on 10/31/16 08:07; Admin Dose 5 ML; Start 10/24/16 at 21:00 Levetiracetam (Keppra) 1,000 mg BID PO Last administered on 10/31/16 08:05; Admin Dose 1,000 MG; Start 10/26/16 at 21:00 Insulin Glargine (Lantus) 10 unit DAILY@20 SC Last administered on 10/30/16 21: 18; Admin Dose 10 UNIT; Start 10/26/16 at 20:00 Demeclocycline HCl (Declomycin) 300 mg BID GTB Last administered on 10/31/16 08 :05; Admin Dose 300 MG; Start 10/29/16 at 09:00 Potassium Chloride (Potassium Chloride Pwd/Soln) 40 meq DAILY GTB Last administered on 10/31/16 08:13; Admin Dose 40 MEQ; Start 10/31/16 at 09:00 LISSA PARK MD Oct 31, 2016 12:23
--- NOTE | 2016-10-31 15:33 | CONS ---
Date/Time of Note Date/Time of Note DATE: 10/31/16 TIME: 15:32 Consult Date/Type/Reason Admit Date/Time Oct 10, 2016 at 13:53 Initial Consult Date 10/10/16 Type of Consultation: Pulm Ordering Provider: MADDY HOPKINS MD Subjective No events. Remains unresponsive. Objective Vital Signs Date Time Temp Pulse Resp B/P Pulse Ox O2 Delivery O2 Flow Rate FiO2 10/31/16 12:51 84 14 100 30 10/31/16 11:40 98.4 119/70 Intake and Output 10/30/16 10/30/16 10/31/16 15:00 23:00 07:00 Intake Total 440 ml 560 ml Output Total 3000 ml 1800 ml Balance -2560 ml -1240 ml HEENT: Tracheostomy in place. NECK: Supple, no thyromegaly. CARDIOVASCULAR: Regular rate and rhythm, S1, S2. No murmurs, rubs, or gallops. CHEST: Bilateral rhonchi with occasional wheezing heard. ABDOMEN: Soft, nontender. G-tube site is intact. EXTREMITIES: There is trace bilateral lower extremity edema with muscle wasting. Results/Medications Result Diagram: 10/31/16 0541 10/31/16 0541 Results 24 hrs Laboratory Tests Test 10/30/16 18:31 10/30/16 20:14 10/31/16 00:30 10/31/16 00:31 Bedside Glucose 195 173 204 178 Test 10/31/16 05:26 10/31/16 05:41 10/31/16 11:38 Bedside Glucose 159 158 Anion Gap 15 Basophils # 0.1 Basophils % 0.6 Blood Urea Nitrogen 6 L Calcium Level 8.7 Carbon Dioxide Level 23 Chloride Level 103 # Creatinine 0.36 L Eosinophils # 0.0 Eosinophils % 0.4 Glucose Level 160 Hematocrit 32.9 L Hemoglobin 11.2 L Lymphocytes # 0.7 L Lymphocytes % 5.9 L Mean Corpuscular Hemoglobin 29.9 Mean Corpuscular Hemoglobin Concent 34.0 Mean Corpuscular Volume 88.0 Mean Platelet Volume 8.9 Monocytes # 1.1 H Monocytes % 9.5 Neutrophils # 9.1 H Neutrophils % 81.9 H Nucleated Red Blood Cells # 0.0 Nucleated Red Blood Cells % 0.0 Platelet Count 384 Potassium Level 4.0 Red Blood Count 3.74 L Red Cell Distribution Width 15.2 H Sodium Level 137 # White Blood Count 11.1 #H Medications Current Medications Ondansetron HCl (Zofran Inj) 4 mg Q6H PRN IV NAUSEA AND/OR VOMITING Last administered on 10/29/16 21:15; Admin Dose 4 MG; Start 10/10/16 at 14:00 Nitroglycerin (Nitroglycerin (Sl Tab) 0.4 Mg) 1 tab Q5M PRN SL CHEST PAIN; Start 10/10/16 at 14:00 Acetaminophen (Tylenol Supp) 650 mg Q4H PRN [place] PAIN LEVEL 1-3 OR FEVER Last administered on 10/30/16 14:05; Admin Dose 650 MG; Start 10/10/16 at 14:00 Morphine Sulfate (morphine) 2 mg Q4H PRN IV PAIN LEVEL 7-10; Start 10/10/16 at 14:00 Lorazepam (Ativan) 1 mg Q2H PRN IV ANXIETY Last administered on 10/15/16 20:27 ; Admin Dose 1 MG; Start 10/10/16 at 14:00 Docusate Sodium (Colace) 100 mg Q12H PRN PO CONSTIPATION; Start 10/10/16 at 14: 00 Hydralazine HCl (Apresoline) 10 mg Q6H PRN IV ELEVATED BLOOD PRESSURE Last administered on 10/29/16 23:43; Admin Dose 10 MG; Start 10/10/16 at 19:00 Atorvastatin Calcium (Lipitor) 40 mg QHS GTB Last administered on 10/30/16 20: 58; Admin Dose 40 MG; Start 10/15/16 at 21:00 Benazepril HCl (Lotensin) 10 mg DAILY GTB Last administered on 10/31/16 08:06; Admin Dose 10 MG; Start 10/15/16 at 12:00 Docusate Sodium (Colace Liquid Cup) 200 mg DAILY PRN GTB CONSTIPATION Last administered on 10/16/16 08:44; Admin Dose 200 MG; Start 10/15/16 at 12:00 Ferrous Sulfate (Feosol Liquid Cup) 330 mg DAILY GTB Last administered on 08:07; Admin Dose 330 MG; Start 10/16/16 at 09:00 Hydralazine HCl (Apresoline) 25 mg Q6H PRN GTB ELEVATED BLOOD PRESSURE Last administered on 10/27/16 12:46; Admin Dose 25 MG; Start 10/15/16 at 12:00 Mineral Oil (Fleet Mineral Oil Enema) 133 ml DAILY PRN [place] CONSTIPATION Last administered on 10/16/16 03:54; Admin Dose 133 ML; Start 10/15/16 at 12:00 Multivitamins Therapeutic (Theragran) 1 tab DAILY PO Last administered on 08:05; Admin Dose 1 TAB; Start 10/15/16 at 12:00 Miscellaneous Information 1 ea NOTE XX ; Start 10/15/16 at 21:30 Glucose (Glutose) 15 gm Q15M PRN PO DECREASED GLUCOSE; Start 10/15/16 at 21:30 Glucose (Glutose) 22.5 gm Q15M PRN PO DECREASED GLUCOSE; Start 10/15/16 at 21: 30 Dextrose (D50w Syringe) 25 ml Q15M PRN IV DECREASED GLUCOSE Last administered on 10/26/16 17:48; Admin Dose 25 ML; Start 10/15/16 at 21:30 Dextrose (D50w Syringe) 50 ml Q15M PRN IV DECREASED GLUCOSE; Start 10/15/16 at 21:30 Glucagon (Glucagen) 1 mg Q15M PRN IM DECREASED GLUCOSE; Start 10/15/16 at 21:30 Glucose (Glutose) 15 gm Q15M PRN BUCCAL DECREASED GLUCOSE; Start 10/15/16 at 21 :30 Metoclopramide HCl (Reglan) 10 mg Q6 IV Last administered on 10/31/16 11:35; Admin Dose 10 MG; Start 10/16/16 at 18:00 Lactulose (Enulose) 30 gm BID GTB Last administered on 10/31/16 08:07; Admin Dose 30 GM; Start 10/16/16 at 21:00 Lansoprazole (Prevacid) 30 mg BID@,18 GTB Last administered on 10/31/16 05:26 ; Admin Dose 30 MG; Start 10/17/16 at 06:00 Carbidopa/Levodopa (Sinemet (25/ 100)) 1 tab TID GTB Last administered on 14:03; Admin Dose 1 TAB; Start 10/16/16 at 21:00 Lidocaine (Lidocaine 5% Oint) 1 applic TID TOP Last administered on 10/31/16 14 :03; Admin Dose 1 APPLIC; Start 10/16/16 at 21:00 Metoprolol Tartrate (Lopressor) 12.5 mg BID GTB Last administered on 10/31/16 08:06; Admin Dose 12.5 MG; Start 10/16/16 at 21:00 Insulin Aspart (Novolog Insulin Pen) NOVOLOG *MILD* ALGORI... Q6 SC Last administered on 10/31/16 11:40; Admin Dose 1 UNIT; Start 10/24/16 at 18:00 Lactobacillus Acidoph/Bulgaricus (Floranex) 2 tab BID GTB Last administered on 10/31/16 08:05; Admin Dose 2 TAB; Start 10/24/16 at 21:00 Nystatin (Nystatin Susp) 5 ml QID GTB Last administered on 10/31/16 14:03; Admin Dose 5 ML; Start 10/24/16 at 21:00 Levetiracetam (Keppra) 1,000 mg BID PO Last administered on 10/31/16 08:05; Admin Dose 1,000 MG; Start 10/26/16 at 21:00 Insulin Glargine (Lantus) 10 unit DAILY@20 SC Last administered on 10/30/16 21: 18; Admin Dose 10 UNIT; Start 10/26/16 at 20:00 Demeclocycline HCl (Declomycin) 300 mg BID GTB Last administered on 10/31/16 08 :05; Admin Dose 300 MG; Start 10/29/16 at 09:00 Potassium Chloride (Potassium Chloride Pwd/Soln) 40 meq DAILY GTB Last administered on 10/31/16 08:13; Admin Dose 40 MEQ; Start 10/31/16 at 09:00 Assessment/Plan Additional Assessment/Plan IMPRESSION: 1. Chronic vent-dependent respiratory failure. 2. s/p Sepsis 3. Seizures 4. Hyponatremia 5. Chronic encephalopathy RECOMMENDATIONS: 1. Vent support 2. BD's 3. TF's ELINA BENTLEY MD Oct 31, 2016 15:33
[2016-10-31] MEDS: ATORVASTATIN 40 MG TAB GTB SCH (21:14)
[2016-10-31] MEDS: INSULIN GLARGINE [LANtus] 3 ML PEN SC SCH (21:20)
[2016-11-01] VITALS (23 sets, daily range): BP systolic 107–121; BP diastolic 60–69; PULSE 62–79; RESP 14–24
[2016-11-01] MEDS: METOCLOPRAMIDE 10 MG INJ IV SCH ×4 (00:16→17:51)
[2016-11-01] MEDS: INSULIN ASPART [NOVOLOG] 3 ML PEN SC SCH ×4 (00:17→17:58)
[2016-11-01] MEDS: LANSOPRAZOLE 30 MG CAP GTB SCH ×2 (06:27→17:51)
[2016-11-01] MEDS: LACTULOSE 30ML CUP GTB SCH ×2 (08:37→20:44)
[2016-11-01] MEDS: LACTOBACILLUS CHEW TAB GTB SCH ×2 (08:37→20:44)
[2016-11-01] MEDS: FERROUS SULFATE 60 MG/ML 5ML CUP GTB SCH (08:37)
[2016-11-01] MEDS: NYSTATIN SUSP 5 ML CUP GTB SCH ×4 (08:37→20:44)
[2016-11-01] MEDS: MULTIVITAMINS THERAPEUTIC TAB PO SCH (08:37)
[2016-11-01] MEDS: POTASSIUM CHLORIDE 20 MEQ POWDER FOR ORAL SOLN GTB SCH (08:37)
[2016-11-01] MEDS: CARBIDOPA/LEVODOPA (25/100) TAB GTB SCH ×3 (08:37→20:45)
[2016-11-01] MEDS: DEMECLOCYCLINE 150 MG TAB GTB SCH ×2 (08:37→20:45)
[2016-11-01] MEDS: LEVETIRACETAM 500 MG TAB PO SCH ×2 (08:38→20:45)
[2016-11-01] MEDS: METOPROLOL 25 MG TAB GTB SCH ×2 (08:38→20:46)
[2016-11-01] MEDS: BENAZEPRIL 10 MG TAB GTB SCH (08:38)
[2016-11-01] MEDS: LIDOCAINE 5% 35 GM OINT TOP SCH ×3 (08:39→20:45)
--- NOTE | 2016-11-01 11:49 | CONS ---
Date/Time of Note Date/Time of Note DATE: 11/01/16 TIME: 11:46 Assessment/Plan Assessment/Plan Additional Assessment/Plan 1. Severe hyponatremia with a sodium of 119 on admission with seizures, possibly acute on chronic hyponatremia versus acute severe hyponatremia.- pt went from hyponatremia to hypernatremia with treatment with 3% saline and one dose of tolvaptan - then Improved to normal today wtih D5W IVF and DDAVP 0.2mg PO x2 dose 10/15/16- on 10/16/16 again Na dropped to 119 s/p Tovlaptan 15 mg PO x1 on 10/18/16-now Na 143- decreased Demeclocycline to 150mg BID on 10/26/2016- again Na dropped to 120 on 10/30/2016-Now Na 137 2. Seizures secondary to severe hyponatremia. 3. Sepsis secondary to bilateral pneumonia. 4. Ventilator-dependent respiratory failure, status post tracheostomy, on vent. 5. History of a previous brain tumor, had surgery. Currently, status post ventriculoperitoneal shunt in place. 6. History of a previous cerebellar cerebrovascular accident. PLAN: pt received 3 % saline and tolvaptan one dose on 10/10 and 10/11- went into polyuria, Na went from hyponatremia to hypernatremia- now improved to normal with D5W IVF and 2 dose of DDAVP 0.2mg- again today 10/16- na dropped from 140 to 122- given 3% hypertonic saline for another 12 hr - did not respond well, Na again dropped to 119- One dose of tolvaptan 15 mg X 1 10/18/16- Na dropped to 130 10/22/2016- tolvaptan 15 gram po x 1 dose on 09/21/16- now Na normal, - will decreased demeclocycline to 150mg BID on 10/26/16- Na dropped to 125 10/29/16- increased demeclocycline to 300mg PO BID on 10/29/2016- Na again dropped to 120- will give Tolvaptan 15 mg PO x 1 dose on 10/30/2016- Now Na normal continue demeclocycline 300mg BID onTube feeding continue demeclocycline to avoid use of tolvaptan monitor Na, pt has acute on chronic hyponatremia ventilator care as per pulmonary will follow up Consultation Date/Type/Reason Admit Date/Time Oct 10, 2016 at 13:53 Initial Consult Date 10/10/16 Type of Consultation: Nephrology Reason for Consultation severe Hyponatremia Referring Provider: MADDY HOPKINS MD 24 HR Interval Summary Free Text/Dictation Cr normal, Bps table Na normal Exam/Review of Systems Vital Signs Vitals Vital Signs Date Time Temp Pulse Resp B/P Pulse Ox O2 Delivery O2 Flow Rate FiO2 11/01/16 11:03 67 14 99 30 11/01/16 07:36 98.3 121/69 Intake and Output 10/31/16 10/31/16 11/01/16 15:00 23:00 07:00 Intake Total 650 ml 180 ml Output Total 450 ml Balance 200 ml 180 ml Results Result Diagram: 10/31/16 0541 10/31/16 0541 Results 24 hrs Laboratory Tests Test 10/31/16 17:23 10/31/16 19:43 11/01/16 00:13 11/01/16 06:27 Bedside Glucose 165 148 165 166 Medications Medications Current Medications Ondansetron HCl (Zofran Inj) 4 mg Q6H PRN IV NAUSEA AND/OR VOMITING Last administered on 10/29/16 21:15; Admin Dose 4 MG; Start 10/10/16 at 14:00 Nitroglycerin (Nitroglycerin (Sl Tab) 0.4 Mg) 1 tab Q5M PRN SL CHEST PAIN; Start 10/10/16 at 14:00 Acetaminophen (Tylenol Supp) 650 mg Q4H PRN [place] PAIN LEVEL 1-3 OR FEVER Last administered on 10/30/16 14:05; Admin Dose 650 MG; Start 10/10/16 at 14:00 Morphine Sulfate (morphine) 2 mg Q4H PRN IV PAIN LEVEL 7-10; Start 10/10/16 at 14:00 Lorazepam (Ativan) 1 mg Q2H PRN IV ANXIETY Last administered on 10/15/16 20:27 ; Admin Dose 1 MG; Start 10/10/16 at 14:00 Docusate Sodium (Colace) 100 mg Q12H PRN PO CONSTIPATION; Start 10/10/16 at 14: 00 Hydralazine HCl (Apresoline) 10 mg Q6H PRN IV ELEVATED BLOOD PRESSURE Last administered on 10/29/16 23:43; Admin Dose 10 MG; Start 10/10/16 at 19:00 Atorvastatin Calcium (Lipitor) 40 mg QHS GTB Last administered on 10/31/16 21: 14; Admin Dose 40 MG; Start 10/15/16 at 21:00 Benazepril HCl (Lotensin) 10 mg DAILY GTB Last administered on 11/01/16 08:38; Admin Dose 10 MG; Start 10/15/16 at 12:00 Docusate Sodium (Colace Liquid Cup) 200 mg DAILY PRN GTB CONSTIPATION Last administered on 10/16/16 08:44; Admin Dose 200 MG; Start 10/15/16 at 12:00 Ferrous Sulfate (Feosol Liquid Cup) 330 mg DAILY GTB Last administered on 08:37; Admin Dose 330 MG; Start 10/16/16 at 09:00 Hydralazine HCl (Apresoline) 25 mg Q6H PRN GTB ELEVATED BLOOD PRESSURE Last administered on 10/27/16 12:46; Admin Dose 25 MG; Start 10/15/16 at 12:00 Mineral Oil (Fleet Mineral Oil Enema) 133 ml DAILY PRN [place] CONSTIPATION Last administered on 10/16/16 03:54; Admin Dose 133 ML; Start 10/15/16 at 12:00 Multivitamins Therapeutic (Theragran) 1 tab DAILY PO Last administered on 08:37; Admin Dose 1 TAB; Start 10/15/16 at 12:00 Miscellaneous Information 1 ea NOTE XX ; Start 10/15/16 at 21:30 Glucose (Glutose) 15 gm Q15M PRN PO DECREASED GLUCOSE; Start 10/15/16 at 21:30 Glucose (Glutose) 22.5 gm Q15M PRN PO DECREASED GLUCOSE; Start 10/15/16 at 21: 30 Dextrose (D50w Syringe) 25 ml Q15M PRN IV DECREASED GLUCOSE Last administered on 10/26/16 17:48; Admin Dose 25 ML; Start 10/15/16 at 21:30 Dextrose (D50w Syringe) 50 ml Q15M PRN IV DECREASED GLUCOSE; Start 10/15/16 at 21:30 Glucagon (Glucagen) 1 mg Q15M PRN IM DECREASED GLUCOSE; Start 10/15/16 at 21:30 Glucose (Glutose) 15 gm Q15M PRN BUCCAL DECREASED GLUCOSE; Start 10/15/16 at 21 :30 Metoclopramide HCl (Reglan) 10 mg Q6 IV Last administered on 11/01/16 06:28; Admin Dose 10 MG; Start 10/16/16 at 18:00 Lactulose (Enulose) 30 gm BID GTB Last administered on 11/01/16 08:37; Admin Dose 30 GM; Start 10/16/16 at 21:00 Lansoprazole (Prevacid) 30 mg BID@,18 GTB Last administered on 11/01/16 06:27 ; Admin Dose 30 MG; Start 10/17/16 at 06:00 Carbidopa/Levodopa (Sinemet (25/ )) 1 tab TID GTB Last administered on 08:37; Admin Dose 1 TAB; Start 10/16/16 at 21:00 Lidocaine (Lidocaine 5% Oint) 1 applic TID TOP Last administered on 11/01/16 08 :39; Admin Dose 1 APPLIC; Start 10/16/16 at 21:00 Metoprolol Tartrate (Lopressor) 12.5 mg BID GTB Last administered on 11/01/16 08:38; Admin Dose 12.5 MG; Start 10/16/16 at 21:00 Insulin Aspart (Novolog Insulin Pen) NOVOLOG *MILD* ALGORI... Q6 SC Last administered on 11/01/16 06:28; Admin Dose 1 UNIT; Start 10/24/16 at 18:00 Lactobacillus Acidoph/Bulgaricus (Floranex) 2 tab BID GTB Last administered on 11/01/16 08:37; Admin Dose 2 TAB; Start 10/24/16 at 21:00 Nystatin (Nystatin Susp) 5 ml QID GTB Last administered on 11/01/16 08:37; Admin Dose 5 ML; Start 10/24/16 at 21:00 Levetiracetam (Keppra) 1,000 mg BID PO Last administered on 11/01/16 08:38; Admin Dose 1,000 MG; Start 10/26/16 at 21:00 Insulin Glargine (Lantus) 10 unit DAILY@20 SC Last administered on 10/31/16 21: 20; Admin Dose 10 UNIT; Start 10/26/16 at 20:00 Demeclocycline HCl (Declomycin) 300 mg BID GTB Last administered on 11/01/16 08 :37; Admin Dose 300 MG; Start 10/29/16 at 09:00 Potassium Chloride (Potassium Chloride Pwd/Soln) 40 meq DAILY GTB Last administered on 11/01/16 08:37; Admin Dose 40 MEQ; Start 10/31/16 at 09:00 LISSA PARK MD Nov 01, 2016 11:49
--- NOTE | 2016-11-01 12:03 | PN ---
Date/Time of Note Date/Time of Note DATE: 11/01/16 TIME: 12:02 Assessment/Plan VTE Prophylaxis VTE Prophylaxis Intervention: other Lines/Catheters IV [facility] Type [facility] Urinary Cath still in place: Yes Reason Cath still needed: skin wounds contaminated by urine Assessment/Plan Chief Complaint/Hosp Course 1. Sepsis secondary to urinary tract infection and healthcare-acquired pneumonia. Patient is followed by Dr. Sales in infectious disease consultation. Continue antibiotics per ID. 2. Ventilator dependent respiratory failure. Dr. Unger is following from pulmonology standpoint. Continue bronchodilators and ventilatory support. 3. 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 4. Seizure disorder. Continue Keppra. 5. Hypertension, continue benazepril and hydralazine. 5. Severe hypernatremia. The patient is followed by Dr. Tovar in nephrology consultation. Continue IV fluids per nephrology. 6. Hypokalemia. Potassium replaced. 7. History of cerebrovascular accident. Continue sequential compression device for deep venous thrombosis prophylaxis and Pepcid for peptic ulcer disease prophylaxis. Problems: Subjective 24 Hr Interval Summary Free Text/Dictation Patient resting comfortably Exam/Review of Systems Vital Signs Vitals Vital Signs Date Time Temp Pulse Resp B/P Pulse Ox O2 Delivery O2 Flow Rate FiO2 11/01/16 11:49 98.3 67 14 116/65 100 11/01/16 11:03 30 Intake and Output 10/31/16 10/31/16 11/01/16 15:00 23:00 07:00 Intake Total 650 ml 180 ml Output Total 450 ml Balance 200 ml 180 ml Exam Constitutional: well developed Head: atraumatic, normocephalic Neck: supple Respiratory: clear to auscultation Cardiovascular: regular rate and rhythm Gastrointestinal: non-tender, soft Results Result Diagram: 10/31/16 0541 10/31/16 0541 Results 24 hrs Laboratory Tests Test 10/31/16 17:23 10/31/16 19:43 11/01/16 00:13 11/01/16 06:27 Bedside Glucose 165 148 165 166 Medications Medications Current Medications Ondansetron HCl (Zofran Inj) 4 mg Q6H PRN IV NAUSEA AND/OR VOMITING Last administered on 10/29/16t 21:15; Admin Dose 4 MG; Start 10/10/16 at 14:00 Nitroglycerin (Nitroglycerin (Sl Tab) 0.4 Mg) 1 tab Q5M PRN SL CHEST PAIN; Start 10/10/16 at 14:00 Acetaminophen (Tylenol Supp) 650 mg Q4H PRN [place] PAIN LEVEL 1-3 OR FEVER Last administered on 10/30/16 14:05; Admin Dose 650 MG; Start 10/10/16 at 14:00 Morphine Sulfate (morphine) 2 mg Q4H PRN IV PAIN LEVEL 7-10; Start 10/10/16 at 14:00 Lorazepam (Ativan) 1 mg Q2H PRN IV ANXIETY Last administered on 10/15/16 20:27 ; Admin Dose 1 MG; Start 10/10/16 at 14:00 Docusate Sodium (Colace) 100 mg Q12H PRN PO CONSTIPATION; Start 10/10/16 at 14: 00 Hydralazine HCl (Apresoline) 10 mg Q6H PRN IV ELEVATED BLOOD PRESSURE Last administered on 10/29/16 23:43; Admin Dose 10 MG; Start 10/10/16 at 19:00 Atorvastatin Calcium (Lipitor) 40 mg QHS GTB Last administered on 10/31/16 21: 14; Admin Dose 40 MG; Start 10/15/16 at 21:00 Benazepril HCl (Lotensin) 10 mg DAILY GTB Last administered on 11/01/16 08:38; Admin Dose 10 MG; Start 10/15/16 at 12:00 Docusate Sodium (Colace Liquid Cup) 200 mg DAILY PRN GTB CONSTIPATION Last administered on 10/16/16 08:44; Admin Dose 200 MG; Start 10/15/16 at 12:00 Ferrous Sulfate (Feosol Liquid Cup) 330 mg DAILY GTB Last administered on 08:37; Admin Dose 330 MG; Start 10/16/16 at 09:00 Hydralazine HCl (Apresoline) 25 mg Q6H PRN GTB ELEVATED BLOOD PRESSURE Last administered on 10/27/16 12:46; Admin Dose 25 MG; Start 10/15/16 at 12:00 Mineral Oil (Fleet Mineral Oil Enema) 133 ml DAILY PRN [place] CONSTIPATION Last administered on 10/16/16 03:54; Admin Dose 133 ML; Start 10/15/16 at 12:00 Multivitamins Therapeutic (Theragran) 1 tab DAILY PO Last administered on 08:37; Admin Dose 1 TAB; Start 10/15/16 at 12:00 Miscellaneous Information 1 ea NOTE XX ; Start 10/15/16 at 21:30 Glucose (Glutose) 15 gm Q15M PRN PO DECREASED GLUCOSE; Start 10/15/16 at 21:30 Glucose (Glutose) 22.5 gm Q15M PRN PO DECREASED GLUCOSE; Start 10/15/16 at 21: 30 Dextrose (D50w Syringe) 25 ml Q15M PRN IV DECREASED GLUCOSE Last administered on 10/26/16 17:48; Admin Dose 25 ML; Start 10/15/16 at 21:30 Dextrose (D50w Syringe) 50 ml Q15M PRN IV DECREASED GLUCOSE; Start 10/15/16 at 21:30 Glucagon (Glucagen) 1 mg Q15M PRN IM DECREASED GLUCOSE; Start 10/15/16 at 21:30 Glucose (Glutose) 15 gm Q15M PRN BUCCAL DECREASED GLUCOSE; Start 10/15/16 at 21 :30 Metoclopramide HCl (Reglan) 10 mg Q6 IV Last administered on 11/01/16 06:28; Admin Dose 10 MG; Start 10/16/16 at 18:00 Lactulose (Enulose) 30 gm BID GTB Last administered on 11/01/16 08:37; Admin Dose 30 GM; Start 10/16/16 at 21:00 Lansoprazole (Prevacid) 30 mg BID@,18 GTB Last administered on 11/01/16 06:27 ; Admin Dose 30 MG; Start 10/17/16 at 06:00 Carbidopa/Levodopa (Sinemet (25/ 100)) 1 tab TID GTB Last administered on 08:37; Admin Dose 1 TAB; Start 10/16/16 at 21:00 Lidocaine (Lidocaine 5% Oint) 1 applic TID TOP Last administered on 11/01/16 08 :39; Admin Dose 1 APPLIC; Start 10/16/16 at 21:00 Metoprolol Tartrate (Lopressor) 12.5 mg BID GTB Last administered on 11/01/16 08:38; Admin Dose 12.5 MG; Start 10/16/16 at 21:00 Insulin Aspart (Novolog Insulin Pen) NOVOLOG *MILD* ALGORI... Q6 SC Last administered on 11/01/16 06:28; Admin Dose 1 UNIT; Start 10/24/16 at 18:00 Lactobacillus Acidoph/Bulgaricus (Floranex) 2 tab BID GTB Last administered on 11/01/16 08:37; Admin Dose 2 TAB; Start 10/24/16 at 21:00 Nystatin (Nystatin Susp) 5 ml QID GTB Last administered on 11/01/16 08:37; Admin Dose 5 ML; Start 10/24/16 at 21:00 Levetiracetam (Keppra) 1,000 mg BID PO Last administered on 11/01/16 08:38; Admin Dose 1,000 MG; Start 10/26/16 at 21:00 Insulin Glargine (Lantus) 10 unit DAILY@20 SC Last administered on 10/31/16 21: 20; Admin Dose 10 UNIT; Start 10/26/16 at 20:00 Demeclocycline HCl (Declomycin) 300 mg BID GTB Last administered on 11/01/16 08 :37; Admin Dose 300 MG; Start 10/29/16 at 09:00 Potassium Chloride (Potassium Chloride Pwd/Soln) 40 meq DAILY GTB Last administered on 11/01/16 08:37; Admin Dose 40 MEQ; Start 10/31/16 at 09:00 NORY BARGER Nov 01, 2016 12:03
--- NOTE | 2016-11-01 15:47 | CONS ---
Date/Time of Note Date/Time of Note DATE: 11/01/16 TIME: 15:45 Consult Date/Type/Reason Admit Date/Time Oct 10, 2016 at 13:53 Initial Consult Date 10/10/16 Type of Consultation: Pulm Ordering Provider: MADDY HOPKINS MD Subjective No events. Comfortable on MV. Objective Vital Signs Date Time Temp Pulse Resp B/P Pulse Ox O2 Delivery O2 Flow Rate FiO2 11/01/16 13:16 67 14 100 30 11/01/16 11:49 98.3 116/65 Intake and Output 10/31/16 10/31/16 11/01/16 15:00 23:00 07:00 Intake Total 650 ml 180 ml Output Total 450 ml Balance 200 ml 180 ml HEENT: Tracheostomy in place NECK: Supple, no thyromegaly CARDIOVASCULAR: Regular rate and rhythm, S1, S2. No murmurs, rubs, or gallops CHEST: Bilateral rhonchi with occasional wheezing heard ABDOMEN: Soft, nontender. G-tube site is intact EXTREMITIES: There is trace bilateral lower extremity edema with muscle wasting Results/Medications Result Diagram: 10/31/16 0541 10/31/16 0541 Results 24 hrs Laboratory Tests Test 10/31/16 17:23 10/31/16 19:43 11/01/16 00:13 11/01/16 06:27 Bedside Glucose 165 148 165 166 Test 11/01/16 12:22 Bedside Glucose 212 Medications Current Medications Ondansetron HCl (Zofran Inj) 4 mg Q6H PRN IV NAUSEA AND/OR VOMITING Last administered on 10/29/16 21:15; Admin Dose 4 MG; Start 10/10/16 at 14:00 Nitroglycerin (Nitroglycerin (Sl Tab) 0.4 Mg) 1 tab Q5M PRN SL CHEST PAIN; Start 10/10/16 at 14:00 Acetaminophen (Tylenol Supp) 650 mg Q4H PRN [place] PAIN LEVEL 1-3 OR FEVER Last administered on 10/30/16 14:05; Admin Dose 650 MG; Start 10/10/16 at 14:00 Morphine Sulfate (morphine) 2 mg Q4H PRN IV PAIN LEVEL 7-10; Start 10/10/16 at 14:00 Lorazepam (Ativan) 1 mg Q2H PRN IV ANXIETY Last administered on 10/15/16 20:27 ; Admin Dose 1 MG; Start 10/10/16 at 14:00 Docusate Sodium (Colace) 100 mg Q12H PRN PO CONSTIPATION; Start 10/10/16 at 14: 00 Hydralazine HCl (Apresoline) 10 mg Q6H PRN IV ELEVATED BLOOD PRESSURE Last administered on 10/29/16 23:43; Admin Dose 10 MG; Start 10/10/16 at 19:00 Atorvastatin Calcium (Lipitor) 40 mg QHS GTB Last administered on 10/31/16 21: 14; Admin Dose 40 MG; Start 10/15/16 at 21:00 Benazepril HCl (Lotensin) 10 mg DAILY GTB Last administered on 11/01/16 08:38; Admin Dose 10 MG; Start 10/15/16 at 12:00 Docusate Sodium (Colace Liquid Cup) 200 mg DAILY PRN GTB CONSTIPATION Last administered on 10/16/16 08:44; Admin Dose 200 MG; Start 10/15/16 at 12:00 Ferrous Sulfate (Feosol Liquid Cup) 330 mg DAILY GTB Last administered on 08:37; Admin Dose 330 MG; Start 10/16/16 at 09:00 Hydralazine HCl (Apresoline) 25 mg Q6H PRN GTB ELEVATED BLOOD PRESSURE Last administered on 10/27/16 12:46; Admin Dose 25 MG; Start 10/15/16 at 12:00 Mineral Oil (Fleet Mineral Oil Enema) 133 ml DAILY PRN [place] CONSTIPATION Last administered on 10/16/16 03:54; Admin Dose 133 ML; Start 10/15/16 at 12:00 Multivitamins Therapeutic (Theragran) 1 tab DAILY PO Last administered on 08:37; Admin Dose 1 TAB; Start 10/15/16 at 12:00 Miscellaneous Information 1 ea NOTE XX ; Start 10/15/16 at 21:30 Glucose (Glutose) 15 gm Q15M PRN PO DECREASED GLUCOSE; Start 10/15/16 at 21:30 Glucose (Glutose) 22.5 gm Q15M PRN PO DECREASED GLUCOSE; Start 10/15/16 at 21: 30 Dextrose (D50w Syringe) 25 ml Q15M PRN IV DECREASED GLUCOSE Last administered on 10/26/16 17:48; Admin Dose 25 ML; Start 10/15/16 at 21:30 Dextrose (D50w Syringe) 50 ml Q15M PRN IV DECREASED GLUCOSE; Start 10/15/16 at 21:30 Glucagon (Glucagen) 1 mg Q15M PRN IM DECREASED GLUCOSE; Start 10/15/16 at 21:30 Glucose (Glutose) 15 gm Q15M PRN BUCCAL DECREASED GLUCOSE; Start 10/15/16 at 21 :30 Metoclopramide HCl (Reglan) 10 mg Q6 IV Last administered on 11/01/16 12:23; Admin Dose 10 MG; Start 10/16/16 at 18:00 Lactulose (Enulose) 30 gm BID GTB Last administered on 11/01/16 08:37; Admin Dose 30 GM; Start 10/16/16 at 21:00 Lansoprazole (Prevacid) 30 mg BID@,18 GTB Last administered on 11/01/16 06:27 ; Admin Dose 30 MG; Start 10/17/16 at 06:00 Carbidopa/Levodopa (Sinemet (25/ 100)) 1 tab TID GTB Last administered on 12:23; Admin Dose 1 TAB; Start 10/16/16 at 21:00 Lidocaine (Lidocaine 5% Oint) 1 applic TID TOP Last administered on 11/01/16 12 :23; Admin Dose 1 APPLIC; Start 10/16/16 at 21:00 Metoprolol Tartrate (Lopressor) 12.5 mg BID GTB Last administered on 11/01/16 08:38; Admin Dose 12.5 MG; Start 10/16/16 at 21:00 Insulin Aspart (Novolog Insulin Pen) NOVOLOG *MILD* ALGORI... Q6 SC Last administered on 11/01/16 12:25; Admin Dose 2 UNIT; Start 10/24/16 at 18:00 Lactobacillus Acidoph/Bulgaricus (Floranex) 2 tab BID GTB Last administered on 11/01/16 08:37; Admin Dose 2 TAB; Start 10/24/16 at 21:00 Nystatin (Nystatin Susp) 5 ml QID GTB Last administered on 11/01/16 12:23; Admin Dose 5 ML; Start 10/24/16 at 21:00 Levetiracetam (Keppra) 1,000 mg BID PO Last administered on 11/01/16 08:38; Admin Dose 1,000 MG; Start 10/26/16 at 21:00 Insulin Glargine (Lantus) 10 unit DAILY@20 SC Last administered on 10/31/16 21: 20; Admin Dose 10 UNIT; Start 10/26/16 at 20:00 Demeclocycline HCl (Declomycin) 300 mg BID GTB Last administered on 11/01/16 08 :37; Admin Dose 300 MG; Start 10/29/16 at 09:00 Potassium Chloride (Potassium Chloride Pwd/Soln) 40 meq DAILY GTB Last administered on 11/01/16 08:37; Admin Dose 40 MEQ; Start 10/31/16 at 09:00 Assessment/Plan Additional Assessment/Plan IMPRESSION: 1. Chronic vent-dependent respiratory failure. 2. s/p Sepsis 3. Seizures 4. Hyponatremia 5. Chronic encephalopathy RECOMMENDATIONS: 1. Vent support 2. BD's 3. TF's 4. fluid management as per Renal ELINA BENTLEY MD Nov 01, 2016 15:47
--- NOTE | 2016-11-01 18:19 | CONS ---
DATE OF ADMISSION: 10/10/2016 DATE OF CONSULTATION: CHIEF COMPLAINT: History of increased gastric residual. HISTORY OF PRESENT ILLNESS: The patient has got respiratory failure. He is status post tracheostom y and ventilator dependent. He is unable to tolerate the feeding by mouth, and he has got a G-tube feeding going so at this time G-tube feeding has been difficult because he is a diabetic. He has go t gastroparesis; however, currently he seems to be tolerating the feeding. PLAN: Recommend to continue to increase the tube feeding up to 50 mL an hour. Dictated By: DARNELL BRITO/PIPER Conf#: [id number] DID#: [id number]
[2016-11-01] MEDS: ATORVASTATIN 40 MG TAB GTB SCH (20:44)
[2016-11-01] MEDS: INSULIN GLARGINE [LANtus] 3 ML PEN SC SCH (20:47)
[2016-11-02] VITALS (23 sets, daily range): BP systolic 96–143; BP diastolic 51–83; PULSE 62–76; RESP 14–22
[2016-11-02] MEDS: METOCLOPRAMIDE 10 MG INJ IV SCH ×4 (00:14→18:13)
[2016-11-02] MEDS: INSULIN ASPART [NOVOLOG] 3 ML PEN SC SCH ×4 (00:15→18:00)
[2016-11-02] MEDS: LANSOPRAZOLE 30 MG CAP GTB SCH ×2 (05:44→18:13)
[2016-11-02 06:16] LABS: ADD SCAN DIFF NO
[2016-11-02 06:25] LABS: BASOPHIL # 0.1 10^3/ul (0.0-0.1); BASOPHILS % 0.8 % (0.0-2.0); EOSINOPHILS # 0.1 10^3/ul (0.0-0.5); EOSINOPHILS % 1.3 % (0.0-7.0); HEMATOCRIT 29.1 % (42.0-52.0); HEMOGLOBIN 9.7 g/dl (14.0-18.0); LYMPHOCYTES # 0.8 10^3/ul (0.8-2.9); LYMPHOCYTES % 7.8 % (15.0-51.0); MEAN CORPUSCULAR HEMOGLOBIN 29.8 pg (29.0-33.0); MEAN CORPUSCULAR HGB CONC 33.3 g/dl (32.0-37.0); MEAN CORPUSCULAR VOLUME 89.5 fl (82.0-101.0); MEAN PLATELET VOLUME 8.9 fl (7.4-10.4); MONOCYTE # 1.1 10^3/ul (0.3-0.9); MONOCYTES % 10.4 % (0.0-11.0); NEUTROPHIL # 8.1 10^3/ul (1.6-7.5); NEUTROPHILS % 78.8 % (39.0-77.0); PLATELET COUNT 317 10^3/UL (140-415); RED BLOOD COUNT 3.25 10^6/ul (4.70-6.10); RED CELL DISTRIBUTION WIDTH 15.6 % (11.5-14.5); WHITE BLOOD COUNT 10.3 10^3/ul (4.8-10.8)
[2016-11-02 06:31] LABS: POTASSIUM 3.9 mmol/L (3.5-5.1)
[2016-11-02 06:34] LABS: CREATININE 0.28 mg/dl (0.61-1.24)
[2016-11-02 06:35] LABS: CALCIUM 8.3 mg/dl (8.4-10.2)
[2016-11-02] MEDS: POTASSIUM CHLORIDE 20 MEQ POWDER FOR ORAL SOLN GTB SCH (09:06)
[2016-11-02] MEDS: FERROUS SULFATE 60 MG/ML 5ML CUP GTB SCH (09:06)
[2016-11-02] MEDS: NYSTATIN SUSP 5 ML CUP GTB SCH ×4 (09:06→23:20)
[2016-11-02] MEDS: LACTULOSE 30ML CUP GTB SCH ×2 (09:06→23:11)
[2016-11-02] MEDS: CARBIDOPA/LEVODOPA (25/100) TAB GTB SCH ×3 (09:07→23:09)
[2016-11-02] MEDS: DEMECLOCYCLINE 150 MG TAB GTB SCH ×2 (09:07→23:10)
[2016-11-02] MEDS: MULTIVITAMINS THERAPEUTIC TAB PO SCH (09:07)
[2016-11-02] MEDS: LEVETIRACETAM 500 MG TAB PO SCH ×2 (09:07→23:09)
[2016-11-02] MEDS: LACTOBACILLUS CHEW TAB GTB SCH ×2 (09:07→23:09)
[2016-11-02] MEDS: BENAZEPRIL 10 MG TAB GTB SCH (09:08)
[2016-11-02] MEDS: LIDOCAINE 5% 35 GM OINT TOP SCH ×3 (09:08→23:20)
[2016-11-02] MEDS: METOPROLOL 25 MG TAB GTB SCH ×2 (09:08→23:20)
[2016-11-02] MEDS: ONDANSETRON 4 MG INJ IV PRN (09:52)
--- NOTE | 2016-11-02 10:51 | CONS ---
Date/Time of Note Date/Time of Note DATE: 11/02/16 TIME: 10:49 Assessment/Plan Assessment/Plan Additional Assessment/Plan Ventilator settings; AC of 14, tidal volume 500, PEEP of 5, 30% FiO2. Assessment and recommendations; next 1. Patient admitted for UTI and sepsis with interval resolution. Next 2. History of ventilator dependence due to severe anoxic brain injury. Status post craniotomy. 3. Hyponatremia with interval improvement. 4. History of hypertension and diabetes. Continue current treatment. Patient awaiting transfer to rehab facility. Consultation Date/Type/Reason Admit Date/Time Oct 10, 2016 at 13:53 Initial Consult Date 10/10/16 Type of Consultation: Pulm Referring Provider: MADDY HOPKINS MD 24 HR Interval Summary Free Text/Dictation Patient's condition remains stable. Has remained hemodynamically stable. General examination; middle-aged man, on ventilator via tracheostomy currently in no distress. Remains unresponsive. Exam/Review of Systems Vital Signs Vitals Vital Signs Date Time Temp Pulse Resp B/P Pulse Ox O2 Delivery O2 Flow Rate FiO2 11/02/16 10:01 30 11/02/16 09:03 69 14 98 11/02/16 07:32 98.5 142/78 Intake and Output 11/01/16 11/01/16 11/02/16 15:00 23:00 07:00 Intake Total 330 ml 990 ml 620 ml Output Total 350 ml 300 ml 250 ml Balance -20 ml 690 ml 370 ml Exam H EENT examination; supple neck, no JVD. No lymphadenopathy. Midline trachea. Tracheostomy in place with clean insertion site. There is a well-healed ventral scar. Pupils midsize bilaterally. Chest examination; clear to auscultation bilaterally. S1-S2 audible, no murmurs. Regular rhythm. Abdomen examination; soft, nondistended. No organomegaly. Bowel sounds audible. Extremity examination; no peripheral edema. DEEP SEA DIVER examination; patient remains unresponsive. Results Result Diagram: 11/02/16 0550 11/02/16 0550 Results 24 hrs Laboratory Tests Test 11/01/16 12:22 11/01/16 17:41 11/01/16 20:11 11/02/16 00:13 Bedside Glucose 212 158 156 154 Test 11/02/16 05:43 11/02/16 05:50 Bedside Glucose 137 Anion Gap 11 Basophils # 0.1 Basophils % 0.8 Blood Urea Nitrogen 14 Calcium Level 8.3 L Carbon Dioxide Level 27 Chloride Level 100 Creatinine 0.28 L Eosinophils # 0.1 Eosinophils % 1.3 Glucose Level 126 Hematocrit 29.1 L Hemoglobin 9.7 L Lymphocytes # 0.8 Lymphocytes % 7.8 L Mean Corpuscular Hemoglobin 29.8 Mean Corpuscular Hemoglobin Concent 33.3 Mean Corpuscular Volume 89.5 Mean Platelet Volume 8.9 Monocytes # 1.1 H Monocytes % 10.4 Neutrophils # 8.1 H Neutrophils % 78.8 H Nucleated Red Blood Cells # 0.0 Nucleated Red Blood Cells % 0.0 Platelet Count 317 Potassium Level 3.9 Red Blood Count 3.25 L Red Cell Distribution Width 15.6 H Sodium Level 134 L White Blood Count 10.3 Medications Medications Current Medications Ondansetron HCl (Zofran Inj) 4 mg Q6H PRN IV NAUSEA AND/OR VOMITING Last administered on 11/02/16 09:52; Admin Dose 4 MG; Start 10/10/16 at 14:00 Nitroglycerin (Nitroglycerin (Sl Tab) 0.4 Mg) 1 tab Q5M PRN SL CHEST PAIN; Start 10/10/16 at 14:00 Acetaminophen (Tylenol Supp) 650 mg Q4H PRN [place] PAIN LEVEL 1-3 OR FEVER Last administered on 10/30/16 14:05; Admin Dose 650 MG; Start 10/10/16 at 14:00 Morphine Sulfate (morphine) 2 mg Q4H PRN IV PAIN LEVEL 7-10; Start 10/10/16 at 14:00 Lorazepam (Ativan) 1 mg Q2H PRN IV ANXIETY Last administered on 10/15/16 20:27 ; Admin Dose 1 MG; Start 10/10/16 at 14:00 Docusate Sodium (Colace) 100 mg Q12H PRN PO CONSTIPATION; Start 10/10/16 at 14: 00 Hydralazine HCl (Apresoline) 10 mg Q6H PRN IV ELEVATED BLOOD PRESSURE Last administered on 10/29/16 23:43; Admin Dose 10 MG; Start 10/10/16 at 19:00 Atorvastatin Calcium (Lipitor) 40 mg QHS GTB Last administered on 11/01/16 20: 44; Admin Dose 40 MG; Start 10/15/16 at 21:00 Benazepril HCl (Lotensin) 10 mg DAILY GTB Last administered on 11/02/16 09:08; Admin Dose 10 MG; Start 10/15/16 at 12:00 Docusate Sodium (Colace Liquid Cup) 200 mg DAILY PRN GTB CONSTIPATION Last administered on 10/16/16 08:44; Admin Dose 200 MG; Start 10/15/16 at 12:00 Ferrous Sulfate (Feosol Liquid Cup) 330 mg DAILY GTB Last administered on 09:06; Admin Dose 330 MG; Start 10/16/16 at 09:00 Hydralazine HCl (Apresoline) 25 mg Q6H PRN GTB ELEVATED BLOOD PRESSURE Last administered on 10/27/16 12:46; Admin Dose 25 MG; Start 10/15/16 at 12:00 Mineral Oil (Fleet Mineral Oil Enema) 133 ml DAILY PRN [place] CONSTIPATION Last administered on 10/16/16 03:54; Admin Dose 133 ML; Start 10/15/16 at 12:00 Multivitamins Therapeutic (Theragran) 1 tab DAILY PO Last administered on 09:07; Admin Dose 1 TAB; Start 10/15/16 at 12:00 Miscellaneous Information 1 ea NOTE XX ; Start 10/15/16 at 21:30 Glucose (Glutose) 15 gm Q15M PRN PO DECREASED GLUCOSE; Start 10/15/16 at 21:30 Glucose (Glutose) 22.5 gm Q15M PRN PO DECREASED GLUCOSE; Start 10/15/16 at 21: 30 Dextrose (D50w Syringe) 25 ml Q15M PRN IV DECREASED GLUCOSE Last administered on 10/26/16 17:48; Admin Dose 25 ML; Start 10/15/16 at 21:30 Dextrose (D50w Syringe) 50 ml Q15M PRN IV DECREASED GLUCOSE; Start 10/15/16 at 21:30 Glucagon (Glucagen) 1 mg Q15M PRN IM DECREASED GLUCOSE; Start 10/15/16 at 21:30 Glucose (Glutose) 15 gm Q15M PRN BUCCAL DECREASED GLUCOSE; Start 10/15/16 at 21 :30 Metoclopramide HCl (Reglan) 10 mg Q6 IV Last administered on 11/02/16 05:44; Admin Dose 10 MG; Start 10/16/16 at 18:00 Lactulose (Enulose) 30 gm BID GTB Last administered on 11/02/16 09:06; Admin Dose 30 GM; Start 10/16/16 at 21:00 Lansoprazole (Prevacid) 30 mg BID@06,18 GTB Last administered on 11/02/16 05:44 ; Admin Dose 30 MG; Start 10/17/16 at 06:00 Carbidopa/Levodopa (Sinemet (25/ 100)) 1 tab TID GTB Last administered on 09:07; Admin Dose 1 TAB; Start 10/16/16 at 21:00 Lidocaine (Lidocaine 5% Oint) 1 applic TID TOP Last administered on 11/02/16 09 :08; Admin Dose 1 APPLIC; Start 10/16/16 at 21:00 Metoprolol Tartrate (Lopressor) 12.5 mg BID GTB Last administered on 11/02/16 09:08; Admin Dose 12.5 MG; Start 10/16/16 at 21:00 Insulin Aspart (Novolog Insulin Pen) NOVOLOG *MILD* ALGORI... Q6 SC Last administered on 11/02/16 00:15; Admin Dose 1 UNIT; Start 10/24/16 at 18:00 Lactobacillus Acidoph/Bulgaricus (Floranex) 2 tab BID GTB Last administered on 11/02/16 09:07; Admin Dose 2 TAB; Start 10/24/16 at 21:00 Nystatin (Nystatin Susp) 5 ml QID GTB Last administered on 11/02/16 09:06; Admin Dose 5 ML; Start 10/24/16 at 21:00 Levetiracetam (Keppra) 1,000 mg BID PO Last administered on 11/02/16 09:07; Admin Dose 1,000 MG; Start 10/26/16 at 21:00 Insulin Glargine (Lantus) 10 unit DAILY@20 SC Last administered on 11/01/16 20: 47; Admin Dose 10 UNIT; Start 10/26/16 at 20:00 Demeclocycline HCl (Declomycin) 300 mg BID GTB Last administered on 11/02/16 09 :07; Admin Dose 300 MG; Start 10/29/16 at 09:00 Potassium Chloride (Potassium Chloride Pwd/Soln) 40 meq DAILY GTB Last administered on 11/02/16t 09:06; Admin Dose 40 MEQ; Start 10/31/16 at 09:00 JUANA DE LEÓN Nov 02, 2016 10:51
--- NOTE | 2016-11-02 11:19 | CONS ---
Date/Time of Note Date/Time of Note DATE: 11/02/16 TIME: 11:18 Assessment/Plan Assessment/Plan Additional Assessment/Plan 1. Severe hyponatremia with a sodium of 119 on admission with seizures, possibly acute on chronic hyponatremia versus acute severe hyponatremia.- pt went from hyponatremia to hypernatremia with treatment with 3% saline and one dose of tolvaptan - then Improved to normal today wtih D5W IVF and DDAVP 0.2mg PO x2 dose 10/15/16- on 10/16/16 again Na dropped to 119 s/p Tovlaptan 15 mg PO x1 on 10/18/16-now Na 143- decreased Demeclocycline to 150mg BID on 10/26/2016- again Na dropped to 120 on 10/30/2016-Now Na 137 2. Seizures secondary to severe hyponatremia. 3. Sepsis secondary to bilateral pneumonia. 4. Ventilator-dependent respiratory failure, status post tracheostomy, on vent. 5. History of a previous brain tumor, had surgery. Currently, status post ventriculoperitoneal shunt in place. 6. History of a previous cerebellar cerebrovascular accident. PLAN: pt received 3 % saline and tolvaptan one dose on 10/10 and 10/11- went into polyuria, Na went from hyponatremia to hypernatremia- now improved to normal with D5W IVF and 2 dose of DDAVP 0.2mg- again today 10/16- na dropped from 140 to 122- given 3% hypertonic saline for another 12 hr - did not respond well, Na again dropped to 119- One dose of tolvaptan 15 mg X 1 10/18/16- Na dropped to 130 10/22/2016- tolvaptan 15 gram po x 1 dose on 09/21/16- now Na normal, - will decreased demeclocycline to 150mg BID on 10/26/16- Na dropped to 125 10/29/16- increased demeclocycline to 300mg PO BID on 10/29/2016- Na again dropped to 120- will give Tolvaptan 15 mg PO x 1 dose on 10/30/2016- Now Na 134 today continue demeclocycline 300mg BID onTube feeding continue demeclocycline to avoid use of tolvaptan monitor Na, pt has acute on chronic hyponatremia ventilator care as per pulmonary will follow up Consultation Date/Type/Reason Admit Date/Time Oct 10, 2016 at 13:53 Initial Consult Date 10/10/16 Type of Consultation: NEPHROLOGY Reason for Consultation Hyponatremia Referring Provider: MADDY HOPKINS MD 24 HR Interval Summary Free Text/Dictation Na 134, on Demeclocycline, pt has been having Tube feeding residual and vomiting intermittently Exam/Review of Systems Vital Signs Vitals Vital Signs Date Time Temp Pulse Resp B/P Pulse Ox O2 Delivery O2 Flow Rate FiO2 11/02/16 10:01 30 11/02/16 09:03 69 14 98 11/02/16 07:32 98.5 142/78 Intake and Output 11/01/16 11/01/16 11/02/16 15:00 23:00 07:00 Intake Total 330 ml 990 ml 620 ml Output Total 350 ml 300 ml 250 ml Balance -20 ml 690 ml 370 ml Exam HEENT: Tracheostomy site is clear. LUNGS: Bilateral coarse breath sounds with bilateral basilar rales present and lower lobe rhonchi present. HEART: S1, S2, tachycardia, no murmur. ABDOMEN: Soft. G-tube in place. EXTREMITIES: No clubbing, cyanosis, or edema. The patient is very debilitated. , + steve catheter in place Results Result Diagram: 11/02/16 0550 11/02/16 0550 Results 24 hrs Laboratory Tests Test 11/01/16 12:22 11/01/16 17:41 11/01/16 20:11 11/02/16 00:13 Bedside Glucose 212 158 156 154 Test 11/02/16 05:43 11/02/16 05:50 Bedside Glucose 137 Anion Gap 11 Basophils # 0.1 Basophils % 0.8 Blood Urea Nitrogen 14 Calcium Level 8.3 L Carbon Dioxide Level 27 Chloride Level 100 Creatinine 0.28 L Eosinophils # 0.1 Eosinophils % 1.3 Glucose Level 126 Hematocrit 29.1 L Hemoglobin 9.7 L Lymphocytes # 0.8 Lymphocytes % 7.8 L Mean Corpuscular Hemoglobin 29.8 Mean Corpuscular Hemoglobin Concent 33.3 Mean Corpuscular Volume 89.5 Mean Platelet Volume 8.9 Monocytes # 1.1 H Monocytes % 10.4 Neutrophils # 8.1 H Neutrophils % 78.8 H Nucleated Red Blood Cells # 0.0 Nucleated Red Blood Cells % 0.0 Platelet Count 317 Potassium Level 3.9 Red Blood Count 3.25 L Red Cell Distribution Width 15.6 H Sodium Level 134 L White Blood Count 10.3 Medications Medications Current Medications Ondansetron HCl (Zofran Inj) 4 mg Q6H PRN IV NAUSEA AND/OR VOMITING Last administered on 11/02/16 09:52; Admin Dose 4 MG; Start 10/10/16 at 14:00 Nitroglycerin (Nitroglycerin (Sl Tab) 0.4 Mg) 1 tab Q5M PRN SL CHEST PAIN; Start 10/10/16 at 14:00 Acetaminophen (Tylenol Supp) 650 mg Q4H PRN [place] PAIN LEVEL 1-3 OR FEVER Last administered on 10/30/16 14:05; Admin Dose 650 MG; Start 10/10/16 at 14:00 Morphine Sulfate (morphine) 2 mg Q4H PRN IV PAIN LEVEL 7-10; Start 10/10/16 at 14:00 Lorazepam (Ativan) 1 mg Q2H PRN IV ANXIETY Last administered on 10/15/16 20:27 ; Admin Dose 1 MG; Start 10/10/16 at 14:00 Docusate Sodium (Colace) 100 mg Q12H PRN PO CONSTIPATION; Start 10/10/16 at 14: 00 Hydralazine HCl (Apresoline) 10 mg Q6H PRN IV ELEVATED BLOOD PRESSURE Last administered on 10/29/16 23:43; Admin Dose 10 MG; Start 10/10/16 at 19:00 Atorvastatin Calcium (Lipitor) 40 mg QHS GTB Last administered on 11/01/16 20: 44; Admin Dose 40 MG; Start 10/15/16 at 21:00 Benazepril HCl (Lotensin) 10 mg DAILY GTB Last administered on 11/02/16 09:08; Admin Dose 10 MG; Start 10/15/16 at 12:00 Docusate Sodium (Colace Liquid Cup) 200 mg DAILY PRN GTB CONSTIPATION Last administered on 10/16/16 08:44; Admin Dose 200 MG; Start 10/15/16 at 12:00 Ferrous Sulfate (Feosol Liquid Cup) 330 mg DAILY GTB Last administered on 09:06; Admin Dose 330 MG; Start 10/16/16 at 09:00 Hydralazine HCl (Apresoline) 25 mg Q6H PRN GTB ELEVATED BLOOD PRESSURE Last administered on 10/27/16 12:46; Admin Dose 25 MG; Start 10/15/16 at 12:00 Mineral Oil (Fleet Mineral Oil Enema) 133 ml DAILY PRN [place] CONSTIPATION Last administered on 10/16/16 03:54; Admin Dose 133 ML; Start 10/15/16 at 12:00 Multivitamins Therapeutic (Theragran) 1 tab DAILY PO Last administered on 09:07; Admin Dose 1 TAB; Start 10/15/16 at 12:00 Miscellaneous Information 1 ea NOTE XX ; Start 10/15/16 at 21:30 Glucose (Glutose) 15 gm Q15M PRN PO DECREASED GLUCOSE; Start 10/15/16 at 21:30 Glucose (Glutose) 22.5 gm Q15M PRN PO DECREASED GLUCOSE; Start 10/15/16 at 21: 30 Dextrose (D50w Syringe) 25 ml Q15M PRN IV DECREASED GLUCOSE Last administered on 10/26/16 17:48; Admin Dose 25 ML; Start 10/15/16 at 21:30 Dextrose (D50w Syringe) 50 ml Q15M PRN IV DECREASED GLUCOSE; Start 10/15/16 at 21:30 Glucagon (Glucagen) 1 mg Q15M PRN IM DECREASED GLUCOSE; Start 10/15/16 at 21:30 Glucose (Glutose) 15 gm Q15M PRN BUCCAL DECREASED GLUCOSE; Start 10/15/16 at 21 :30 Metoclopramide HCl (Reglan) 10 mg Q6 IV Last administered on 11/02/16 05:44; Admin Dose 10 MG; Start 10/16/16 at 18:00 Lactulose (Enulose) 30 gm BID GTB Last administered on 11/02/16 09:06; Admin Dose 30 GM; Start 10/16/16 at 21:00 Lansoprazole (Prevacid) 30 mg BID@18 GTB Last administered on 11/02/16 05:44 ; Admin Dose 30 MG; Start 10/17/16 at 06:00 Carbidopa/Levodopa (Sinemet (25/ 100)) 1 tab TID GTB Last administered on 09:07; Admin Dose 1 TAB; Start 10/16/16 at 21:00 Lidocaine (Lidocaine 5% Oint) 1 applic TID TOP Last administered on 11/02/16 09 :08; Admin Dose 1 APPLIC; Start 10/16/16 at 21:00 Metoprolol Tartrate (Lopressor) 12.5 mg BID GTB Last administered on 11/02/16 09:08; Admin Dose 12.5 MG; Start 10/16/16 at 21:00 Insulin Aspart (Novolog Insulin Pen) NOVOLOG *MILD* ALGORI... Q6 SC Last administered on 11/02/16 00:15; Admin Dose 1 UNIT; Start 10/24/16 at 18:00 Lactobacillus Acidoph/Bulgaricus (Floranex) 2 tab BID GTB Last administered on 11/02/16 09:07; Admin Dose 2 TAB; Start 10/24/16 at 21:00 Nystatin (Nystatin Susp) 5 ml QID GTB Last administered on 11/02/16 09:06; Admin Dose 5 ML; Start 10/24/16 at 21:00 Levetiracetam (Keppra) 1,000 mg BID PO Last administered on 11/02/16 09:07; Admin Dose 1,000 MG; Start 10/26/16 at 21:00 Insulin Glargine (Lantus) 10 unit DAILY@20 SC Last administered on 11/01/16 20: 47; Admin Dose 10 UNIT; Start 10/26/16 at 20:00 Demeclocycline HCl (Declomycin) 300 mg BID GTB Last administered on 11/02/16 09 :07; Admin Dose 300 MG; Start 10/29/16 at 09:00 Potassium Chloride (Potassium Chloride Pwd/Soln) 40 meq DAILY GTB Last administered on 11/02/16 09:06; Admin Dose 40 MEQ; Start 10/31/16 at 09:00 LISSA PARK MD Nov 02, 2016 11:19
--- NOTE | 2016-11-02 13:47 | RADRPT ---
PROCEDURE: XR Abdomen. CLINICAL INDICATION: Abdomen pain. Vomiting. TECHNIQUE: AP supine abdomen x-ray. COMPARISON: None. FINDINGS: The bowel gas pattern is normal with no evidence of obstruction. There is a right-sided RN PARALEGAL shunt catheter. A Knapp catheter is present in the bladder. There are no abnormal calcifications overlying the urinary tracts. The osseus structures are unremarkable. IMPRESSION: 1. Right-sided RN PARALEGAL shunt catheter. 2. Knapp catheter in the bladder. 3. Otherwise normal abdomen radiograph. RPTAT: QQ .Shaan Kirk MD, MD Date Time Electronically viewed and signed by .Shaan Kirk MD, MD on 11/02/2016 13:46 .R/
--- NOTE | 2016-11-02 18:20 | PN ---
Date/Time of Note Date/Time of Note DATE: 11/02/16 TIME: 18:20 Assessment/Plan VTE Prophylaxis VTE Prophylaxis Intervention: SCD's Lines/Catheters [facility]from [facility] [place] [employer] Central line still needed: Yes Urinary Cath still in place: Yes Reason Cath still needed: urinary retention Assessment/Plan Chief Complaint/Hosp Course ASSESSMENT AND PLAN: -Persistent Hyponatremia 2 SIADH. Patient is followed by Dr. Tovar in nephrology consultation. - Dysphagia with PEG. Dr. Mas is following gastroenterology consultation. -Status post aspiration, status post treatment. - Sepsis secondary to urinary tract infection and healthcare-acquired pneumonia. Status post treatment. patient is followed by Dr. Sales in infectious disease consultation. - Ventilator dependent respiratory failure. Dr. Unger is following from pulmonology standpoint. Continue bronchodilators and ventilatory support. 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 - Seizure disorder. Continue Keppra. - Hypertension, continue benazepril and hydralazine. - History of cerebrovascular accident. I spoke to patient's daughter at the bedside regarding patient's condition and plan of care , all questions answered. Continue sequential compression device for deep venous thrombosis prophylaxis and Pepcid for peptic ulcer disease prophylaxis. Further recommendations based on clinical course. Plan of care discussed with Dr. Desir. Problems: Exam/Review of Systems Vital Signs Vitals Vital Signs Date Time Temp Pulse Resp B/P Pulse Ox O2 Delivery O2 Flow Rate FiO2 11/02/16 16:19 75 11/02/16 15:24 98.2 18 137/78 100 11/02/16 15:00 30 Intake and Output 11/01/16 11/01/16 11/02/16 15:00 23:00 07:00 Intake Total 330 ml 990 ml 620 ml Output Total 350 ml 300 ml 250 ml Balance -20 ml 690 ml 370 ml Exam GENERAL: This is a well-developed male on ventilator support, does not respond to verbal internal stimuli. HEENT: Head is atraumatic, normocephalic. Pupils equal, round, reactive to light and accommodation. NECK: Supple. Tracheostomy at the base of the neck. CHEST: Scattered rhonchi bilaterally, slightly diminished at the bases. No wheezes noted. HEART: Normal S1, S2. No murmurs, gallops, clicks, rubs noted. ABDOMEN: Protuberant, soft, nondistended, nontender. Bowel sounds present. EXTREMITIES: Mild edema. There is no clubbing or cyanosis. Pulses equal bilaterally 2+. SKIN: There is no rash, petechiae noted. NEUROLOGIC: The patient is obtunded. Results Result Diagram: 11/02/16 0550 11/02/16 0550 Results 24 hrs Laboratory Tests Test 11/01/16 20:11 11/02/16 00:13 11/02/16 05:43 11/02/16 05:50 Bedside Glucose 156 154 137 Anion Gap 11 Basophils # 0.1 Basophils % 0.8 Blood Urea Nitrogen 14 Calcium Level 8.3 L Carbon Dioxide Level 27 Chloride Level 100 Creatinine 0.28 L Eosinophils # 0.1 Eosinophils % 1.3 Glucose Level 126 Hematocrit 29.1 L Hemoglobin 9.7 L Lymphocytes # 0.8 Lymphocytes % 7.8 L Mean Corpuscular Hemoglobin 29.8 Mean Corpuscular Hemoglobin Concent 33.3 Mean Corpuscular Volume 89.5 Mean Platelet Volume 8.9 Monocytes # 1.1 H Monocytes % 10.4 Neutrophils # 8.1 H Neutrophils % 78.8 H Nucleated Red Blood Cells # 0.0 Nucleated Red Blood Cells % 0.0 Platelet Count 317 Potassium Level 3.9 Red Blood Count 3.25 L Red Cell Distribution Width 15.6 H Sodium Level 134 L White Blood Count 10.3 Test 11/02/16 11:35 Bedside Glucose 141 Medications Medications Current Medications Ondansetron HCl (Zofran Inj) 4 mg Q6H PRN IV NAUSEA AND/OR VOMITING Last administered on 11/02/16 09:52; Admin Dose 4 MG; Start 10/10/16 at 14:00 Nitroglycerin (Nitroglycerin (Sl Tab) 0.4 Mg) 1 tab Q5M PRN SL CHEST PAIN; Start 10/10/16 at 14:00 Acetaminophen (Tylenol Supp) 650 mg Q4H PRN [place] PAIN LEVEL 1-3 OR FEVER Last administered on 10/30/16 14:05; Admin Dose 650 MG; Start 10/10/16 at 14:00 Morphine Sulfate (morphine) 2 mg Q4H PRN IV PAIN LEVEL 7-10; Start 10/10/16 at 14:00 Lorazepam (Ativan) 1 mg Q2H PRN IV ANXIETY Last administered on 10/15/16 20:27 ; Admin Dose 1 MG; Start 10/10/16 at 14:00 Docusate Sodium (Colace) 100 mg Q12H PRN PO CONSTIPATION; Start 10/10/16 at 14: 00 Hydralazine HCl (Apresoline) 10 mg Q6H PRN IV ELEVATED BLOOD PRESSURE Last administered on 10/29/16 23:43; Admin Dose 10 MG; Start 10/10/16 at 19:00 Atorvastatin Calcium (Lipitor) 40 mg QHS GTB Last administered on 11/01/16 20: 44; Admin Dose 40 MG; Start 10/15/16 at 21:00 Benazepril HCl (Lotensin) 10 mg DAILY GTB Last administered on 11/02/16 09:08; Admin Dose 10 MG; Start 10/15/16 at 12:00 Docusate Sodium (Colace Liquid Cup) 200 mg DAILY PRN GTB CONSTIPATION Last administered on 10/16/16 08:44; Admin Dose 200 MG; Start 10/15/16 at 12:00 Ferrous Sulfate (Feosol Liquid Cup) 330 mg DAILY GTB Last administered on 09:06; Admin Dose 330 MG; Start 10/16/16 at 09:00 Hydralazine HCl (Apresoline) 25 mg Q6H PRN GTB ELEVATED BLOOD PRESSURE Last administered on 10/27/16 12:46; Admin Dose 25 MG; Start 10/15/16 at 12:00 Mineral Oil (Fleet Mineral Oil Enema) 133 ml DAILY PRN [place] CONSTIPATION Last administered on 10/16/16 03:54; Admin Dose 133 ML; Start 10/15/16 at 12:00 Multivitamins Therapeutic (Theragran) 1 tab DAILY PO Last administered on 09:07; Admin Dose 1 TAB; Start 10/15/16 at 12:00 Miscellaneous Information 1 ea NOTE XX ; Start 10/15/16 at 21:30 Glucose (Glutose) 15 gm Q15M PRN PO DECREASED GLUCOSE; Start 10/15/16 at 21:30 Glucose (Glutose) 22.5 gm Q15M PRN PO DECREASED GLUCOSE; Start 10/15/16 at 21: 30 Dextrose (D50w Syringe) 25 ml Q15M PRN IV DECREASED GLUCOSE Last administered on 10/26/16 17:48; Admin Dose 25 ML; Start 10/15/16 at 21:30 Dextrose (D50w Syringe) 50 ml Q15M PRN IV DECREASED GLUCOSE; Start 10/15/16 at 21:30 Glucagon (Glucagen) 1 mg Q15M PRN IM DECREASED GLUCOSE; Start 10/15/16 at 21:30 Glucose (Glutose) 15 gm Q15M PRN BUCCAL DECREASED GLUCOSE; Start 10/15/16 at 21 :30 Metoclopramide HCl (Reglan) 10 mg Q6 IV Last administered on 11/02/16 18:13; Admin Dose 10 MG; Start 10/16/16 at 18:00 Lactulose (Enulose) 30 gm BID GTB Last administered on 11/02/16 09:06; Admin Dose 30 GM; Start 10/16/16 at 21:00 Lansoprazole (Prevacid) 30 mg BID@,18 GTB Last administered on 11/02/16 18:13 ; Admin Dose 30 MG; Start 10/17/16 at 06:00 Carbidopa/Levodopa (Sinemet (25/ 100)) 1 tab TID GTB Last administered on 12:26; Admin Dose 1 TAB; Start 10/16/16 at 21:00 Lidocaine (Lidocaine 5% Oint) 1 applic TID TOP Last administered on 11/02/16 12 :29; Admin Dose 1 APPLIC; Start 10/16/16 at 21:00 Metoprolol Tartrate (Lopressor) 12.5 mg BID GTB Last administered on 11/02/16 09:08; Admin Dose 12.5 MG; Start 10/16/16 at 21:00 Insulin Aspart (Novolog Insulin Pen) NOVOLOG *MILD* ALGORI... Q6 SC Last administered on 11/02/16 11:37; Admin Dose 1 UNIT; Start 10/24/16 at 18:00 Lactobacillus Acidoph/Bulgaricus (Floranex) 2 tab BID GTB Last administered on 11/02/16 09:07; Admin Dose 2 TAB; Start 10/24/16 at 21:00 Nystatin (Nystatin Susp) 5 ml QID GTB Last administered on 11/02/16 18:13; Admin Dose 5 ML; Start 2/25/17 at 21:00 Levetiracetam (Keppra) 1,000 mg BID PO Last administered on 11/02/16 09:07; Admin Dose 1,000 MG; Start 10/26/16 at 21:00 Insulin Glargine (Lantus) 10 unit DAILY@20 SC Last administered on 11/01/16 20: 47; Admin Dose 10 UNIT; Start 10/26/16 at 20:00 Demeclocycline HCl (Declomycin) 300 mg BID GTB Last administered on 11/02/16 09 :07; Admin Dose 300 MG; Start 10/29/16 at 09:00 Potassium Chloride (Potassium Chloride Pwd/Soln) 40 meq DAILY GTB Last administered on 11/02/16 09:06; Admin Dose 40 MEQ; Start 10/31/16 at 09:00 ALTHEA ACOSTA Nov 02, 2016 18:20
[2016-11-02] MEDS: ATORVASTATIN 40 MG TAB GTB SCH (23:10)
[2016-11-02] MEDS: INSULIN GLARGINE [LANtus] 3 ML PEN SC SCH (23:13)
[2016-11-03] VITALS (24 sets, daily range): BP systolic 90–142; BP diastolic 51–80; PULSE 65–79; RESP 14–21
[2016-11-03] MEDS: morphine 2 MG INJ IV PRN ×2 (01:47→04:59)
[2016-11-03] MEDS: METOCLOPRAMIDE 10 MG INJ IV SCH ×5 (03:18→23:53)
[2016-11-03] MEDS: INSULIN ASPART [NOVOLOG] 3 ML PEN SC SCH ×5 (06:00→23:55)
[2016-11-03] MEDS: LANSOPRAZOLE 30 MG CAP GTB SCH ×2 (06:37→17:02)
[2016-11-03] MEDS: NYSTATIN SUSP 5 ML CUP GTB SCH ×4 (09:31→21:20)
[2016-11-03] MEDS: LACTOBACILLUS CHEW TAB GTB SCH ×2 (09:31→21:19)
[2016-11-03] MEDS: FERROUS SULFATE 60 MG/ML 5ML CUP GTB SCH (09:31)
[2016-11-03] MEDS: LACTULOSE 30ML CUP GTB SCH ×2 (09:31→21:20)
[2016-11-03] MEDS: POTASSIUM CHLORIDE 20 MEQ POWDER FOR ORAL SOLN GTB SCH (09:31)
[2016-11-03] MEDS: MULTIVITAMINS THERAPEUTIC TAB PO SCH (09:32)
[2016-11-03] MEDS: DEMECLOCYCLINE 150 MG TAB GTB SCH ×2 (09:32→21:00)
[2016-11-03] MEDS: LEVETIRACETAM 500 MG TAB PO SCH ×2 (09:32→21:20)
[2016-11-03] MEDS: LIDOCAINE 5% 35 GM OINT TOP SCH ×3 (09:33→21:25)
[2016-11-03] MEDS: BENAZEPRIL 10 MG TAB GTB SCH (09:33)
[2016-11-03] MEDS: METOPROLOL 25 MG TAB GTB SCH ×2 (09:34→21:24)
[2016-11-03] MEDS: CARBIDOPA/LEVODOPA (25/100) TAB GTB SCH ×3 (09:37→21:19)
--- NOTE | 2016-11-03 10:32 | CONS ---
Date/Time of Note Date/Time of Note DATE: 11/03/16 TIME: 10:29 Assessment/Plan Assessment/Plan Additional Assessment/Plan Ventilator settings; AC of 14, tidal volume 500, PEEP of 5, 30% FiO2. Assessment recommendations; 1. Patient admitted for UTI and sepsis off antibiotics now. 2. History of chronic respiratory failure due to anoxic brain injury. Status post intracerebral bleed. 3. Stable diabetes hypertension. Current treatment. Patient awaiting discharge. Consultation Date/Type/Reason Admit Date/Time Oct 10, 2016 at 13:53 Initial Consult Date 10/10/16 Type of Consultation: Pulmonary Referring Provider: MADDY HOPKINS MD 24 HR Interval Summary Free Text/Dictation Patient condition remains stable. Awaiting discharge to rehab center. Has remained hemodynamically stable. General exam; diligent man on ventilator via tracheostomy currently in no distress remains unresponsive. Exam/Review of Systems Vital Signs Vitals Vital Signs Date Time Temp Pulse Resp B/P Pulse Ox O2 Delivery O2 Flow Rate FiO2 11/03/16 09:46 30 11/03/16 09:00 105 14 99 11/03/16 07:22 98.3 134/73 Intake and Output 11/02/16 11/02/16 11/03/16 15:00 23:00 07:00 Intake Total 380 ml 515 ml Output Total 350 ml 500 ml Balance 30 ml 15 ml Exam HEENT examination; supple neck, no JVD. No lymphadenopathy. Tracheostomy in place with clean insertion site. There is a well-healed frontal craniotomy scar. Chest examination; clear to auscultation. S1-S2 audible, no murmurs. Regular rhythm. Abdomen examination; soft, nondistended. Bowel sounds audible. G-tube in place. Extremity examination; no peripheral edema. ETHNOLOGY PROFESSOR examination; patient remains unresponsive. Results Result Diagram: 11/02/16 0550 11/02/16 0550 Results 24 hrs Laboratory Tests Test 11/02/16 11:35 11/02/16 18:12 11/03/16 01:55 11/03/16 06:32 Bedside Glucose 141 102 129 133 Medications Medications Current Medications Ondansetron HCl (Zofran Inj) 4 mg Q6H PRN IV NAUSEA AND/OR VOMITING Last administered on 11/02/16t 09:52; Admin Dose 4 MG; Start 10/10/16 at 14:00 Nitroglycerin (Nitroglycerin (Sl Tab) 0.4 Mg) 1 tab Q5M PRN SL CHEST PAIN; Start 10/10/16 at 14:00 Acetaminophen (Tylenol Supp) 650 mg Q4H PRN [place] PAIN LEVEL 1-3 OR FEVER Last administered on 10/30/16 14:05; Admin Dose 650 MG; Start 10/10/16 at 14:00 Morphine Sulfate (morphine) 2 mg Q4H PRN IV PAIN LEVEL 7-10 Last administered on 11/03/16 04:59; Admin Dose 2 MG; Start 10/10/16 at 14:00 Lorazepam (Ativan) 1 mg Q2H PRN IV ANXIETY Last administered on 10/15/16 20:27 ; Admin Dose 1 MG; Start 10/10/16 at 14:00 Docusate Sodium (Colace) 100 mg Q12H PRN PO CONSTIPATION; Start 10/10/16 at 14: 00 Hydralazine HCl (Apresoline) 10 mg Q6H PRN IV ELEVATED BLOOD PRESSURE Last administered on 10/29/16 23:43; Admin Dose 10 MG; Start 10/10/16 at 19:00 Atorvastatin Calcium (Lipitor) 40 mg QHS GTB Last administered on 11/02/16 23: 10; Admin Dose 40 MG; Start 10/15/16 at 21:00 Benazepril HCl (Lotensin) 10 mg DAILY GTB Last administered on 11/03/16 09:33; Admin Dose 10 MG; Start 10/15/16 at 12:00 Docusate Sodium (Colace Liquid Cup) 200 mg DAILY PRN GTB CONSTIPATION Last administered on 10/16/16 08:44; Admin Dose 200 MG; Start 10/15/16 at 12:00 Ferrous Sulfate (Feosol Liquid Cup) 330 mg DAILY GTB Last administered on 09:31; Admin Dose 330 MG; Start 10/16/16 at 09:00 Hydralazine HCl (Apresoline) 25 mg Q6H PRN GTB ELEVATED BLOOD PRESSURE Last administered on 10/27/16 12:46; Admin Dose 25 MG; Start 10/15/16 at 12:00 Mineral Oil (Fleet Mineral Oil Enema) 133 ml DAILY PRN [place] CONSTIPATION Last administered on 10/16/16 03:54; Admin Dose 133 ML; Start 10/15/16 at 12:00 Multivitamins Therapeutic (Theragran) 1 tab DAILY PO Last administered on 09:32; Admin Dose 1 TAB; Start 10/15/16 at 12:00 Miscellaneous Information 1 ea NOTE XX ; Start 10/15/16 at 21:30 Glucose (Glutose) 15 gm Q15M PRN PO DECREASED GLUCOSE; Start 10/15/16 at 21:30 Glucose (Glutose) 22.5 gm Q15M PRN PO DECREASED GLUCOSE; Start 10/15/16 at 21: 30 Dextrose (D50w Syringe) 25 ml Q15M PRN IV DECREASED GLUCOSE Last administered on 10/26/16 17:48; Admin Dose 25 ML; Start 10/15/16 at 21:30 Dextrose (D50w Syringe) 50 ml Q15M PRN IV DECREASED GLUCOSE; Start 10/15/16 at 21:30 Glucagon (Glucagen) 1 mg Q15M PRN IM DECREASED GLUCOSE; Start 10/15/16 at 21:30 Glucose (Glutose) 15 gm Q15M PRN BUCCAL DECREASED GLUCOSE; Start 10/15/16 at 21 :30 Metoclopramide HCl (Reglan) 10 mg Q6 IV Last administered on 11/03/16 06:37; Admin Dose 10 MG; Start 10/16/16 at 18:00 Lactulose (Enulose) 30 gm BID GTB Last administered on 11/03/16 09:31; Admin Dose 30 GM; Start 10/16/16 at 21:00 Lansoprazole (Prevacid) 30 mg BID@ GTB Last administered on 11/03/16 06:37 ; Admin Dose 30 MG; Start 10/17/16 at 06:00 Carbidopa/Levodopa (Sinemet (25/ 100)) 1 tab TID GTB Last administered on 09:37; Admin Dose 1 TAB; Start 10/16/16 at 21:00 Lidocaine (Lidocaine 5% Oint) 1 applic TID TOP Last administered on 11/03/16 09 :33; Admin Dose 1 APPLIC; Start 10/16/16 at 21:00 Metoprolol Tartrate (Lopressor) 12.5 mg BID GTB Last administered on 11/03/16 09:34; Admin Dose 12.5 MG; Start 10/16/16 at 21:00 Insulin Aspart (Novolog Insulin Pen) NOVOLOG *MILD* ALGORI... Q6 SC Last administered on 11/02/16 11:37; Admin Dose 1 UNIT; Start 10/24/16 at 18:00 Lactobacillus Acidoph/Bulgaricus (Floranex) 2 tab BID GTB Last administered on 11/03/16 09:31; Admin Dose 2 TAB; Start 10/24/16 at 21:00 Nystatin (Nystatin Susp) 5 ml QID GTB Last administered on 11/03/16 09:31; Admin Dose 5 ML; Start 10/24/16 at 21:00 Levetiracetam (Keppra) 1,000 mg BID PO Last administered on 11/03/16 09:32; Admin Dose 1,000 MG; Start 10/26/16 at 21:00 Insulin Glargine (Lantus) 10 unit DAILY@20 SC Last administered on 11/02/16 23: 13; Admin Dose 10 UNIT; Start 10/26/16 at 20:00 Demeclocycline HCl (Declomycin) 300 mg BID GTB Last administered on 11/03/16 09 :32; Admin Dose 300 MG; Start 10/29/16 at 09:00 Potassium Chloride (Potassium Chloride Pwd/Soln) 40 meq DAILY GTB Last administered on 11/03/16 09:31; Admin Dose 40 MEQ; Start 10/31/16 at 09:00 JUANA DE LEÓN 7, 2017 10:32
--- NOTE | 2016-11-03 11:04 | CONS ---
Date/Time of Note Date/Time of Note DATE: 11/03/16 TIME: 11:03 Assessment/Plan Assessment/Plan Additional Assessment/Plan 1. Severe hyponatremia with a sodium of 119 on admission with seizures, possibly acute on chronic hyponatremia versus acute severe hyponatremia.- pt went from hyponatremia to hypernatremia with treatment with 3% saline and one dose of tolvaptan - then Improved to normal today wtih D5W IVF and DDAVP 0.2mg PO x2 dose 10/15/16- on 10/16/16 again Na dropped to 119 s/p Tovlaptan 15 mg PO x1 on 10/18/16-now Na 143- decreased Demeclocycline to 150mg BID on 10/26/2016- again Na dropped to 120 on 10/30/2016-Now Na 134 yesterday, no labs today to review 2. Seizures secondary to severe hyponatremia. 3. Sepsis secondary to bilateral pneumonia. 4. Ventilator-dependent respiratory failure, status post tracheostomy, on vent. 5. History of a previous brain tumor, had surgery. Currently, status post ventriculoperitoneal shunt in place. 6. History of a previous cerebellar cerebrovascular accident. PLAN: pt received 3 % saline and tolvaptan one dose on 10/10 and 10/11- went into polyuria, Na went from hyponatremia to hypernatremia- now improved to normal with D5W IVF and 2 dose of DDAVP 0.2mg- again today 10/16- na dropped from 140 to 122- given 3% hypertonic saline for another 12 hr - did not respond well, Na again dropped to 119- One dose of tolvaptan 15 mg X 1 10/18/16- Na dropped to 130 10/22/2016- tolvaptan 15 gram po x 1 dose on 09/21/16- now Na normal, - will decreased demeclocycline to 150mg BID on 10/26/16- Na dropped to 125 10/29/16- increased demeclocycline to 300mg PO BID on 10/29/2016- Na again dropped to 120- will give Tolvaptan 15 mg PO x 1 dose on 10/30/2016- Now Na 134 yesterday, no labs today to review continue demeclocycline 300mg BID onTube feeding continue demeclocycline 300mg PO BID to avoid use of tolvaptan monitor Na, pt has acute on chronic hyponatremia ventilator care as per pulmonary will follow up Consultation Date/Type/Reason Admit Date/Time Oct 10, 2016 at 13:53 Initial Consult Date 10/10/16 Type of Consultation: NEPHROLOGY Reason for Consultation Hyponatremia severe Referring Provider: MADDY HOPKINS MD 24 HR Interval Summary Free Text/Dictation No labs today , Tube feeding still low Exam/Review of Systems Vital Signs Vitals Vital Signs Date Time Temp Pulse Resp B/P Pulse Ox O2 Delivery O2 Flow Rate FiO2 11/03/16 09:46 30 11/03/16 09:00 105 14 99 11/03/16 07:22 98.3 134/73 Intake and Output 11/02/16 11/02/16 11/03/16 15:00 23:00 07:00 Intake Total 380 ml 515 ml Output Total 350 ml 500 ml Balance 30 ml 15 ml Results Result Diagram: 11/02/16 0550 11/02/16 0550 Results 24 hrs Laboratory Tests Test 11/02/16 11:35 11/02/16 18:12 11/03/16 01:55 11/03/16 06:32 Bedside Glucose 141 102 129 133 Medications Medications Current Medications Ondansetron HCl (Zofran Inj) 4 mg Q6H PRN IV NAUSEA AND/OR VOMITING Last administered on 11/02/16 09:52; Admin Dose 4 MG; Start 10/10/16 at 14:00 Nitroglycerin (Nitroglycerin (Sl Tab) 0.4 Mg) 1 tab Q5M PRN SL CHEST PAIN; Start 10/10/16 at 14:00 Acetaminophen (Tylenol Supp) 650 mg Q4H PRN [place] PAIN LEVEL 1-3 OR FEVER Last administered on 10/30/16 14:05; Admin Dose 650 MG; Start 10/10/16 at 14:00 Morphine Sulfate (morphine) 2 mg Q4H PRN IV PAIN LEVEL 7-10 Last administered on 11/03/16 04:59; Admin Dose 2 MG; Start 10/10/16 at 14:00 Lorazepam (Ativan) 1 mg Q2H PRN IV ANXIETY Last administered on 10/15/16 20:27 ; Admin Dose 1 MG; Start 10/10/16 at 14:00 Docusate Sodium (Colace) 100 mg Q12H PRN PO CONSTIPATION; Start 10/10/16 at 14: 00 Hydralazine HCl (Apresoline) 10 mg Q6H PRN IV ELEVATED BLOOD PRESSURE Last administered on 10/29/16 23:43; Admin Dose 10 MG; Start 10/10/16 at 19:00 Atorvastatin Calcium (Lipitor) 40 mg QHS GTB Last administered on 11/02/16 23: 10; Admin Dose 40 MG; Start 10/15/16 at 21:00 Benazepril HCl (Lotensin) 10 mg DAILY GTB Last administered on 11/03/16 09:33; Admin Dose 10 MG; Start 10/15/16 at 12:00 Docusate Sodium (Colace Liquid Cup) 200 mg DAILY PRN GTB CONSTIPATION Last administered on 10/16/16 08:44; Admin Dose 200 MG; Start 10/15/16 at 12:00 Ferrous Sulfate (Feosol Liquid Cup) 330 mg DAILY GTB Last administered on 09:31; Admin Dose 330 MG; Start 10/16/16 at 09:00 Hydralazine HCl (Apresoline) 25 mg Q6H PRN GTB ELEVATED BLOOD PRESSURE Last administered on 10/27/16 12:46; Admin Dose 25 MG; Start 10/15/16 at 12:00 Mineral Oil (Fleet Mineral Oil Enema) 133 ml DAILY PRN [place] CONSTIPATION Last administered on 10/16/16 03:54; Admin Dose 133 ML; Start 10/15/16 at 12:00 Multivitamins Therapeutic (Theragran) 1 tab DAILY PO Last administered on 09:32; Admin Dose 1 TAB; Start 10/15/16 at 12:00 Miscellaneous Information 1 ea NOTE XX ; Start 10/15/16 at 21:30 Glucose (Glutose) 15 gm Q15M PRN PO DECREASED GLUCOSE; Start 10/15/16 at 21:30 Glucose (Glutose) 22.5 gm Q15M PRN PO DECREASED GLUCOSE; Start 10/15/16 at 21: 30 Dextrose (D50w Syringe) 25 ml Q15M PRN IV DECREASED GLUCOSE Last administered on 10/26/16 17:48; Admin Dose 25 ML; Start 10/15/16 at 21:30 Dextrose (D50w Syringe) 50 ml Q15M PRN IV DECREASED GLUCOSE; Start 10/15/16 at 21:30 Glucagon (Glucagen) 1 mg Q15M PRN IM DECREASED GLUCOSE; Start 10/15/16 at 21:30 Glucose (Glutose) 15 gm Q15M PRN BUCCAL DECREASED GLUCOSE; Start 10/15/16 at 21 :30 Metoclopramide HCl (Reglan) 10 mg Q6 IV Last administered on 11/03/16 06:37; Admin Dose 10 MG; Start 10/16/16 at 18:00 Lactulose (Enulose) 30 gm BID GTB Last administered on 11/03/16 09:31; Admin Dose 30 GM; Start 10/16/16 at 21:00 Lansoprazole (Prevacid) 30 mg BID@18 GTB Last administered on 11/03/16 06:37 ; Admin Dose 30 MG; Start 10/17/16 at 06:00 Carbidopa/Levodopa (Sinemet (25/ 100)) 1 tab TID GTB Last administered on 09:37; Admin Dose 1 TAB; Start 10/16/16 at 21:00 Lidocaine (Lidocaine 5% Oint) 1 applic TID TOP Last administered on 11/03/16 09 :33; Admin Dose 1 APPLIC; Start 10/16/16 at 21:00 Metoprolol Tartrate (Lopressor) 12.5 mg BID GTB Last administered on 11/03/16 09:34; Admin Dose 12.5 MG; Start 10/16/16 at 21:00 Insulin Aspart (Novolog Insulin Pen) NOVOLOG *MILD* ALGORI... Q6 SC Last administered on 11/02/16 11:37; Admin Dose 1 UNIT; Start 10/24/16 at 18:00 Lactobacillus Acidoph/Bulgaricus (Floranex) 2 tab BID GTB Last administered on 11/03/16 09:31; Admin Dose 2 TAB; Start 10/24/16 at 21:00 Nystatin (Nystatin Susp) 5 ml QID GTB Last administered on 11/03/16 09:31; Admin Dose 5 ML; Start 10/24/16 at 21:00 Levetiracetam (Keppra) 1,000 mg BID PO Last administered on 11/03/16 09:32; Admin Dose 1,000 MG; Start 10/26/16 at 21:00 Insulin Glargine (Lantus) 10 unit DAILY@20 SC Last administered on 11/02/16 23: 13; Admin Dose 10 UNIT; Start 10/26/16 at 20:00 Demeclocycline HCl (Declomycin) 300 mg BID GTB Last administered on 11/03/16 09 :32; Admin Dose 300 MG; Start 10/29/16 at 09:00 Potassium Chloride (Potassium Chloride Pwd/Soln) 40 meq DAILY GTB Last administered on 11/03/16 09:31; Admin Dose 40 MEQ; Start 10/31/16 at 09:00 LISSA PARK MD Nov 03, 2016 11:04
--- NOTE | 2016-11-03 16:13 | PN ---
Date/Time of Note Date/Time of Note DATE: 11/03/16 TIME: 16:11 Assessment/Plan VTE Prophylaxis VTE Prophylaxis Intervention: SCD's Lines/Catheters IV Catheter Type (from [facility] Urinary Cath still in place: Yes Reason Cath still needed: urinary retention Assessment/Plan Chief Complaint/Hosp Course ASSESSMENT AND PLAN: -Persistent Hyponatremia 2 SIADH. Patient is followed by Dr. Tovar in nephrology consultation. Continue demeclocycline. - Dysphagia with PEG. Dr. Mas is following gastroenterology consultation. -Status post aspiration, status post treatment. - Sepsis secondary to urinary tract infection and healthcare-acquired pneumonia. Status post treatment. patient is followed by Dr. Sales in infectious disease consultation. - Ventilator dependent respiratory failure. Dr. Unger is following from pulmonology standpoint. Continue bronchodilators and ventilatory support. 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 - Seizure disorder. Continue Keppra. - Hypertension, continue benazepril and hydralazine. - History of cerebrovascular accident. Continue sequential compression device for deep venous thrombosis prophylaxis and Pepcid for peptic ulcer disease prophylaxis. Further recommendations based on clinical course. Plan of care discussed with Dr. Desir. Problems: Subjective 24 Hr Interval Summary Free Text/Dictation Patient tolerates G-tube feeding at 30 cc/h, had episode of vomiting yesterday, no emesis today. Sodium is 134 today, continue to monitor Exam/Review of Systems Vital Signs Vitals Vital Signs Date Time Temp Pulse Resp B/P Pulse Ox O2 Delivery O2 Flow Rate FiO2 11/03/16 15:40 66 14 99 30 11/03/16 15:23 97.5 116/65 Intake and Output 11/02/16 11/02/16 11/03/16 14:59 22:59 06:59 Intake Total 380 ml 515 ml Output Total 350 ml 500 ml Balance 30 ml 15 ml Exam GENERAL: This is a well-developed male on ventilator support, does not respond to verbal internal stimuli. HEENT: Head is atraumatic, normocephalic. Pupils equal, round, reactive to light and accommodation. NECK: Supple. Tracheostomy at the base of the neck. CHEST: Scattered rhonchi bilaterally, slightly diminished at the bases. No wheezes noted. HEART: Normal S1, S2. No murmurs, gallops, clicks, rubs noted. ABDOMEN: Protuberant, soft, nondistended, nontender. Bowel sounds present. EXTREMITIES: Mild edema. There is no clubbing or cyanosis. Pulses equal bilaterally 2+. SKIN: There is no rash, petechiae noted. NEUROLOGIC: The patient is obtunded. Results Result Diagram: 11/02/16 0550 11/02/16 0550 Results 24 hrs Laboratory Tests Test 11/02/16 18:12 11/03/16 01:55 11/03/16 06:32 11/03/16 11:58 Bedside Glucose 102 129 133 139 Medications Medications Current Medications Ondansetron HCl (Zofran Inj) 4 mg Q6H PRN IV NAUSEA AND/OR VOMITING Last administered on 11/02/16 09:52; Admin Dose 4 MG; Start 10/10/16 at 14:00 Nitroglycerin (Nitroglycerin (Sl Tab) 0.4 Mg) 1 tab Q5M PRN SL CHEST PAIN; Start 10/10/16 at 14:00 Acetaminophen (Tylenol Supp) 650 mg Q4H PRN [place] PAIN LEVEL 1-3 OR FEVER Last administered on 10/30/16 14:05; Admin Dose 650 MG; Start 10/10/16 at 14:00 Morphine Sulfate (morphine) 2 mg Q4H PRN IV PAIN LEVEL 7-10 Last administered on 11/03/16 04:59; Admin Dose 2 MG; Start 10/10/16 at 14:00 Lorazepam (Ativan) 1 mg Q2H PRN IV ANXIETY Last administered on 10/15/16 20:27 ; Admin Dose 1 MG; Start 10/10/16 at 14:00 Docusate Sodium (Colace) 100 mg Q12H PRN PO CONSTIPATION; Start 10/10/16 at 14: 00 Hydralazine HCl (Apresoline) 10 mg Q6H PRN IV ELEVATED BLOOD PRESSURE Last administered on 10/29/16 23:43; Admin Dose 10 MG; Start 10/10/16 at 19:00 Atorvastatin Calcium (Lipitor) 40 mg QHS GTB Last administered on 11/02/16 23: 10; Admin Dose 40 MG; Start 10/15/16 at 21:00 Benazepril HCl (Lotensin) 10 mg DAILY GTB Last administered on 11/03/16 09:33; Admin Dose 10 MG; Start 10/15/16 at 12:00 Docusate Sodium (Colace Liquid Cup) 200 mg DAILY PRN GTB CONSTIPATION Last administered on 10/16/16 08:44; Admin Dose 200 MG; Start 10/15/16 at 12:00 Ferrous Sulfate (Feosol Liquid Cup) 330 mg DAILY GTB Last administered on 09:31; Admin Dose 330 MG; Start 10/16/16 at 09:00 Hydralazine HCl (Apresoline) 25 mg Q6H PRN GTB ELEVATED BLOOD PRESSURE Last administered on 10/27/16 12:46; Admin Dose 25 MG; Start 10/15/16 at 12:00 Mineral Oil (Fleet Mineral Oil Enema) 133 ml DAILY PRN [place] CONSTIPATION Last administered on 10/16/16 03:54; Admin Dose 133 ML; Start 10/15/16 at 12:00 Multivitamins Therapeutic (Theragran) 1 tab DAILY PO Last administered on 09:32; Admin Dose 1 TAB; Start 10/15/16 at 12:00 Miscellaneous Information 1 ea NOTE XX ; Start 10/15/16 at 21:30 Glucose (Glutose) 15 gm Q15M PRN PO DECREASED GLUCOSE; Start 10/15/16 at 21:30 Glucose (Glutose) 22.5 gm Q15M PRN PO DECREASED GLUCOSE; Start 10/15/16 at 21: 30 Dextrose (D50w Syringe) 25 ml Q15M PRN IV DECREASED GLUCOSE Last administered on 10/26/16 17:48; Admin Dose 25 ML; Start 10/15/16 at 21:30 Dextrose (D50w Syringe) 50 ml Q15M PRN IV DECREASED GLUCOSE; Start 10/15/16 at 21:30 Glucagon (Glucagen) 1 mg Q15M PRN IM DECREASED GLUCOSE; Start 10/15/16 at 21:30 Glucose (Glutose) 15 gm Q15M PRN BUCCAL DECREASED GLUCOSE; Start 10/15/16 at 21 :30 Metoclopramide HCl (Reglan) 10 mg Q6 IV Last administered on 11/03/16 11:57; Admin Dose 10 MG; Start 10/16/16 at 18:00 Lactulose (Enulose) 30 gm BID GTB Last administered on 11/03/16 09:31; Admin Dose 30 GM; Start 10/16/16 at 21:00 Lansoprazole (Prevacid) 30 mg BID@06,18 GTB Last administered on 11/03/16 06:37 ; Admin Dose 30 MG; Start 10/17/16 at 06:00 Carbidopa/Levodopa (Sinemet (25/ 100)) 1 tab TID GTB Last administered on 12:02; Admin Dose 1 TAB; Start 10/16/16 at 21:00 Lidocaine (Lidocaine 5% Oint) 1 applic TID TOP Last administered on 11/03/16 12 :02; Admin Dose 1 APPLIC; Start 10/16/16 at 21:00 Metoprolol Tartrate (Lopressor) 12.5 mg BID GTB Last administered on 11/03/16 09:34; Admin Dose 12.5 MG; Start 10/16/16 at 21:00 Insulin Aspart (Novolog Insulin Pen) NOVOLOG *MILD* ALGORI... Q6 SC Last administered on 11/02/16 11:37; Admin Dose 1 UNIT; Start 10/24/16 at 18:00 Lactobacillus Acidoph/Bulgaricus (Floranex) 2 tab BID GTB Last administered on 11/03/16 09:31; Admin Dose 2 TAB; Start 10/24/16 at 21:00 Nystatin (Nystatin Susp) 5 ml QID GTB Last administered on 11/03/16 12:02; Admin Dose 5 ML; Start 10/24/16 at 21:00 Levetiracetam (Keppra) 1,000 mg BID PO Last administered on 11/03/16 09:32; Admin Dose 1,000 MG; Start 10/26/16 at 21:00 Insulin Glargine (Lantus) 10 unit DAILY@20 SC Last administered on 11/02/16 23: 13; Admin Dose 10 UNIT; Start 10/26/16 at 20:00 Demeclocycline HCl (Declomycin) 300 mg BID GTB Last administered on 11/03/16 09 :32; Admin Dose 300 MG; Start 10/29/16 at 09:00 Potassium Chloride (Potassium Chloride Pwd/Soln) 40 meq DAILY GTB Last administered on 11/03/16 09:31; Admin Dose 40 MEQ; Start 10/31/16 at 09:00 ALTHEA ACOSTA Nov 03, 2016 16:13
[2016-11-03] MEDS: INSULIN GLARGINE [LANtus] 3 ML PEN SC SCH (20:35)
[2016-11-03] MEDS: ATORVASTATIN 40 MG TAB GTB SCH (21:20)
[2016-11-04] VITALS (24 sets, daily range): BP systolic 114–141; BP diastolic 69–79; PULSE 67–82; RESP 14–20
[2016-11-04] MEDS: METOCLOPRAMIDE 10 MG INJ IV SCH ×3 (06:06→17:07)
[2016-11-04] MEDS: LANSOPRAZOLE 30 MG CAP GTB SCH ×2 (06:06→17:07)
[2016-11-04] MEDS: INSULIN ASPART [NOVOLOG] 3 ML PEN SC SCH ×3 (06:13→17:10)
[2016-11-04 08:05] LABS: ADD SCAN DIFF NO
[2016-11-04 08:31] LABS: CREATININE 0.28 mg/dl (0.61-1.24); MAGNESIUM 1.8 mg/dl (1.7-2.5); PHOSPHORUS 4.3 mg/dl (2.5-4.9)
[2016-11-04 08:32] LABS: CALCIUM 8.2 mg/dl (8.4-10.2)
[2016-11-04 08:42] LABS: BASOPHIL # 0.1 10^3/ul (0.0-0.1); BASOPHILS % 1.2 % (0.0-2.0); EOSINOPHILS # 0.2 10^3/ul (0.0-0.5); EOSINOPHILS % 1.9 % (0.0-7.0); HEMATOCRIT 30.1 % (42.0-52.0); HEMOGLOBIN 10.1 g/dl (14.0-18.0); LYMPHOCYTES # 0.7 10^3/ul (0.8-2.9); LYMPHOCYTES % 8.5 % (15.0-51.0); MEAN CORPUSCULAR HEMOGLOBIN 29.9 pg (29.0-33.0); MEAN CORPUSCULAR HGB CONC 33.6 g/dl (32.0-37.0); MEAN CORPUSCULAR VOLUME 89.1 fl (82.0-101.0); MEAN PLATELET VOLUME 9.1 fl (7.4-10.4); MONOCYTE # 0.9 10^3/ul (0.3-0.9); MONOCYTES % 10.6 % (0.0-11.0); NEUTROPHIL # 6.5 10^3/ul (1.6-7.5); NEUTROPHILS % 76.5 % (39.0-77.0); PLATELET COUNT 302 10^3/UL (140-415); RED BLOOD COUNT 3.38 10^6/ul (4.70-6.10); RED CELL DISTRIBUTION WIDTH 15.1 % (11.5-14.5); WHITE BLOOD COUNT 8.5 10^3/ul (4.8-10.8)
[2016-11-04] MEDS: DEMECLOCYCLINE 150 MG TAB GTB SCH ×2 (09:00→20:54)
[2016-11-04] MEDS: LACTULOSE 30ML CUP GTB SCH ×2 (09:19→20:47)
[2016-11-04] MEDS: FERROUS SULFATE 60 MG/ML 5ML CUP GTB SCH (09:19)
[2016-11-04] MEDS: NYSTATIN SUSP 5 ML CUP GTB SCH ×4 (09:19→20:46)
[2016-11-04] MEDS: POTASSIUM CHLORIDE 20 MEQ POWDER FOR ORAL SOLN GTB SCH (09:19)
[2016-11-04] MEDS: LACTOBACILLUS CHEW TAB GTB SCH ×2 (09:20→20:48)
[2016-11-04] MEDS: BENAZEPRIL 10 MG TAB GTB SCH (09:20)
[2016-11-04] MEDS: MULTIVITAMINS THERAPEUTIC TAB PO SCH (09:20)
[2016-11-04] MEDS: LEVETIRACETAM 500 MG TAB PO SCH ×2 (09:20→20:48)
[2016-11-04] MEDS: CARBIDOPA/LEVODOPA (25/100) TAB GTB SCH ×3 (09:21→20:48)
[2016-11-04] MEDS: METOPROLOL 25 MG TAB GTB SCH ×2 (09:21→20:49)
[2016-11-04] MEDS: LIDOCAINE 5% 35 GM OINT TOP SCH ×3 (09:21→20:47)
--- NOTE | 2016-11-04 10:03 | CONS ---
Date/Time of Note Date/Time of Note DATE: 11/04/16 TIME: 10:02 Assessment/Plan Assessment/Plan Additional Assessment/Plan 1. Severe hyponatremia with a sodium of 119 on admission with seizures, possibly acute on chronic hyponatremia versus acute severe hyponatremia.- pt went from hyponatremia to hypernatremia with treatment with 3% saline and one dose of tolvaptan - then Improved to normal today wtih D5W IVF and DDAVP 0.2mg PO x2 dose 10/15/16- on 10/16/16 again Na dropped to 119 s/p Tovlaptan 15 mg PO x1 on 10/18/16-now Na 143- decreased Demeclocycline to 150mg BID on 10/26/2016- again Na dropped to 120 on 10/30/2016-Now Na 134 yesterday, no labs today to review 2. Seizures secondary to severe hyponatremia. 3. Sepsis secondary to bilateral pneumonia. 4. Ventilator-dependent respiratory failure, status post tracheostomy, on vent. 5. History of a previous brain tumor, had surgery. Currently, status post ventriculoperitoneal shunt in place. 6. History of a previous cerebellar cerebrovascular accident. PLAN: pt received 3 % saline and tolvaptan one dose on 10/10 and 10/11- went into polyuria, Na went from hyponatremia to hypernatremia- now improved to normal with D5W IVF and 2 dose of DDAVP 0.2mg- again today 10/16- na dropped from 140 to 122- given 3% hypertonic saline for another 12 hr - did not respond well, Na again dropped to 119- One dose of tolvaptan 15 mg X 1 10/18/16- Na dropped to 130 10/22/2016- tolvaptan 15 gram po x 1 dose on 09/21/16- now Na normal, - will decreased demeclocycline to 150mg BID on 10/26/16- Na dropped to 125 10/29/16- increased demeclocycline to 300mg PO BID on 10/29/2016- Na again dropped to 120- will give Tolvaptan 15 mg PO x 1 dose on 10/30/2016- Now Na 131 continue demeclocycline 300mg BID onTube feeding continue demeclocycline 300mg PO BID to avoid use of tolvaptan monitor Na, pt has acute on chronic hyponatremia ventilator care as per pulmonary will follow up Consultation Date/Type/Reason Admit Date/Time Oct 10, 2016 at 13:53 Initial Consult Date 10/10/16 Type of Consultation: NEPHROLOGY Reason for Consultation Hyponatremia Referring Provider: MADDY HOPKINS MD 24 HR Interval Summary Free Text/Dictation Na slowly dropping down, tube feeding at 30 cc/hr Exam/Review of Systems Vital Signs Vitals Vital Signs Date Time Temp Pulse Resp B/P Pulse Ox O2 Delivery O2 Flow Rate FiO2 11/04/16 08:49 81 11/04/16 08:35 30 11/04/16 07:48 98.8 20 141/79 98 Intake and Output 11/03/16 11/03/16 11/04/16 15:00 23:00 07:00 Intake Total 560 ml 530 ml Output Total 400 ml 600 ml Balance 160 ml -70 ml Exam HEENT: Tracheostomy site is clear. LUNGS: Bilateral coarse breath sounds with bilateral basilar rales present and lower lobe rhonchi present. HEART: S1, S2, tachycardia, no murmur. ABDOMEN: Soft. G-tube in place. EXTREMITIES: No clubbing, cyanosis, or edema. The patient is very debilitated. , + steve catheter in place Results Result Diagram: 11/04/16 0720 11/04/16 0720 Results 24 hrs Laboratory Tests Test 11/03/16 11:58 11/03/16 17:03 11/03/16 23:55 11/04/16 06:06 Bedside Glucose 139 135 129 159 Test 11/04/16 07:20 Anion Gap 12 Basophils # 0.1 Basophils % 1.2 Blood Urea Nitrogen 11 Calcium Level 8.2 L Carbon Dioxide Level 26 Chloride Level 97 Creatinine 0.28 L Eosinophils # 0.2 Eosinophils % 1.9 Glucose Level 146 Hematocrit 30.1 L Hemoglobin 10.1 L Lymphocytes # 0.7 L Lymphocytes % 8.5 L Magnesium Level 1.8 Mean Corpuscular Hemoglobin 29.9 Mean Corpuscular Hemoglobin Concent 33.6 Mean Corpuscular Volume 89.1 Mean Platelet Volume 9.1 Monocytes # 0.9 Monocytes % 10.6 Neutrophils # 6.5 Neutrophils % 76.5 Nucleated Red Blood Cells # 0.0 Nucleated Red Blood Cells % 0.0 Phosphorus Level 4.3 Platelet Count 302 Potassium Level 4.0 Red Blood Count 3.38 L Red Cell Distribution Width 15.1 H Sodium Level 131 L White Blood Count 8.5 Medications Medications Current Medications Ondansetron HCl (Zofran Inj) 4 mg Q6H PRN IV NAUSEA AND/OR VOMITING Last administered on 11/02/16 09:52; Admin Dose 4 MG; Start 10/10/16 at 14:00 Nitroglycerin (Nitroglycerin (Sl Tab) 0.4 Mg) 1 tab Q5M PRN SL CHEST PAIN; Start 10/10/16 at 14:00 Acetaminophen (Tylenol Supp) 650 mg Q4H PRN [place] PAIN LEVEL 1-3 OR FEVER Last administered on 10/30/16 14:05; Admin Dose 650 MG; Start 10/10/16 at 14:00 Morphine Sulfate (morphine) 2 mg Q4H PRN IV PAIN LEVEL 7-10 Last administered on 11/03/16 04:59; Admin Dose 2 MG; Start 10/10/16 at 14:00 Lorazepam (Ativan) 1 mg Q2H PRN IV ANXIETY Last administered on 10/15/16 20:27 ; Admin Dose 1 MG; Start 10/10/16 at 14:00 Docusate Sodium (Colace) 100 mg Q12H PRN PO CONSTIPATION; Start 10/10/16 at 14: 00 Hydralazine HCl (Apresoline) 10 mg Q6H PRN IV ELEVATED BLOOD PRESSURE Last administered on 10/29/16 23:43; Admin Dose 10 MG; Start 10/10/16 at 19:00 Atorvastatin Calcium (Lipitor) 40 mg QHS GTB Last administered on 11/03/16 21: 20; Admin Dose 40 MG; Start 10/15/16 at 21:00 Benazepril HCl (Lotensin) 10 mg DAILY GTB Last administered on 11/04/16 09:20; Admin Dose 10 MG; Start 10/15/16 at 12:00 Docusate Sodium (Colace Liquid Cup) 200 mg DAILY PRN GTB CONSTIPATION Last administered on 10/16/16 08:44; Admin Dose 200 MG; Start 10/15/16 at 12:00 Ferrous Sulfate (Feosol Liquid Cup) 330 mg DAILY GTB Last administered on 09:19; Admin Dose 330 MG; Start 10/16/16 at 09:00 Hydralazine HCl (Apresoline) 25 mg Q6H PRN GTB ELEVATED BLOOD PRESSURE Last administered on 10/27/16 12:46; Admin Dose 25 MG; Start 10/15/16 at 12:00 Mineral Oil (Fleet Mineral Oil Enema) 133 ml DAILY PRN [place] CONSTIPATION Last administered on 10/16/16 03:54; Admin Dose 133 ML; Start 10/15/16 at 12:00 Multivitamins Therapeutic (Theragran) 1 tab DAILY PO Last administered on 09:20; Admin Dose 1 TAB; Start 10/15/16 at 12:00 Miscellaneous Information 1 ea NOTE XX ; Start 10/15/16 at 21:30 Glucose (Glutose) 15 gm Q15M PRN PO DECREASED GLUCOSE; Start 10/15/16 at 21:30 Glucose (Glutose) 22.5 gm Q15M PRN PO DECREASED GLUCOSE; Start 10/15/16 at 21: 30 Dextrose (D50w Syringe) 25 ml Q15M PRN IV DECREASED GLUCOSE Last administered on 10/26/16 17:48; Admin Dose 25 ML; Start 10/15/16 at 21:30 Dextrose (D50w Syringe) 50 ml Q15M PRN IV DECREASED GLUCOSE; Start 10/15/16 at 21:30 Glucagon (Glucagen) 1 mg Q15M PRN IM DECREASED GLUCOSE; Start 10/15/16 at 21:30 Glucose (Glutose) 15 gm Q15M PRN BUCCAL DECREASED GLUCOSE; Start 10/15/16 at 21 :30 Metoclopramide HCl (Reglan) 10 mg Q6 IV Last administered on 11/04/16 06:06; Admin Dose 10 MG; Start 10/16/16 at 18:00 Lactulose (Enulose) 30 gm BID GTB Last administered on 11/04/16 09:19; Admin Dose 30 GM; Start 10/16/16 at 21:00 Lansoprazole (Prevacid) 30 mg BID@18 GTB Last administered on 11/04/16 06:06 ; Admin Dose 30 MG; Start 10/17/16 at 06:00 Carbidopa/Levodopa (Sinemet (25/ 100)) 1 tab TID GTB Last administered on 09:21; Admin Dose 1 TAB; Start 10/16/16 at 21:00 Lidocaine (Lidocaine 5% Oint) 1 applic TID TOP Last administered on 11/04/16 09 :21; Admin Dose 1 APPLIC; Start 10/16/16 at 21:00 Metoprolol Tartrate (Lopressor) 12.5 mg BID GTB Last administered on 11/04/16 09:21; Admin Dose 12.5 MG; Start 10/16/16 at 21:00 Insulin Aspart (Novolog Insulin Pen) NOVOLOG *MILD* ALGORI... Q6 SC Last administered on 11/04/16 06:13; Admin Dose 1 UNIT; Start 10/24/16 at 18:00 Lactobacillus Acidoph/Bulgaricus (Floranex) 2 tab BID GTB Last administered on 11/04/16 09:20; Admin Dose 2 TAB; Start 10/24/16 at 21:00 Nystatin (Nystatin Susp) 5 ml QID GTB Last administered on 11/04/16 09:19; Admin Dose 5 ML; Start 10/24/16 at 21:00 Levetiracetam (Keppra) 1,000 mg BID PO Last administered on 11/04/16 09:20; Admin Dose 1,000 MG; Start 10/26/16 at 21:00 Insulin Glargine (Lantus) 10 unit DAILY@20 SC Last administered on 11/03/16 20: 35; Admin Dose 10 UNIT; Start 10/26/16 at 20:00 Demeclocycline HCl (Declomycin) 300 mg BID GTB Last administered on 11/03/16 09 :32; Admin Dose 300 MG; Start 10/29/16 at 09:00 Potassium Chloride (Potassium Chloride Pwd/Soln) 40 meq DAILY GTB Last administered on 11/04/16 09:19; Admin Dose 40 MEQ; Start 10/31/16 at 09:00 LISSA PARK MD Nov 04, 2016 10:03
--- NOTE | 2016-11-04 12:10 | PN ---
DATE: The patient has difficulty in tolerating the G-tube feeding. He vomited G-tube contents yesterday, and a KUB was done, and at this time the KUB shows unremarkable findings. PHYSICAL EXAMINATION: GENERAL: Patient is unresponsive. VITAL SIGNS: Pulse is 80, blood pressure is 118/72. CARDIOVASCULAR: Normal heart sounds. RESPIRATORY: Normal breath sounds. ABDOMEN: Shows soft abdomen. G-tube is in place, and current the patient is tolerating the G-tube feeding. LABORATORY WORKUP: WBC is 8500, hemoglobin 10.1. The potassium is 4.0. CLINICAL IMPRESSION: The patient is tolerating the G-tube feeding well at this time. He has some e vidence of gastroparesis, however, seems to be tolerating the feeding well. PLAN: Will gradually increase the feeding up to 50 mL an hour. Dictated By: DARNELL BRITO/PIPER Conf#: [id number] DID#: [id number]
--- NOTE | 2016-11-04 13:27 | CONS ---
Date/Time of Note Date/Time of Note DATE: 11/04/16 TIME: 13:20 Assessment/Plan Assessment/Plan Additional Assessment/Plan Ventilator settings; AC of 14, tidal volume 500, PEEP of 5, 30% FiO2. Assessment recommendations; next 1. Patient admitted for UTI and sepsis with interval resolution. Off antibiotics now. 2. Chronic respiratory failure, due to anoxic encephalopathy. 3. Stable seizure disorder. 4. Stable diabetes. Continue current treatment. Patient awaiting discharge. Consultation Date/Type/Reason Admit Date/Time Oct 10, 2016 at 13:53 Initial Consult Date 10/10/16 Type of Consultation: Pulmonary Referring Provider: MADDY HOPKINS MD 24 HR Interval Summary Free Text/Dictation Patient condition remains stable. Has remained hemodynamically stable. No overt seizure activity noted. General exam; middle aged man, on ventilator via tracheostomy currently in no distress. Patient remains unresponsive. Exam/Review of Systems Vital Signs Vitals Vital Signs Date Time Temp Pulse Resp B/P Pulse Ox O2 Delivery O2 Flow Rate FiO2 11/04/16 12:34 67 11/04/16 11:45 97.8 14 141/76 97 11/04/16 11:15 30 Intake and Output 11/03/16 11/03/16 11/04/16 15:00 23:00 07:00 Intake Total 560 ml 530 ml Output Total 400 ml 600 ml Balance 160 ml -70 ml Exam H EENT examination; supple neck, no JVD. No lymphadenopathy. Midline trachea. No thyromegaly. Tracheostomy in place with clean insertion site. There is a well-healed ventral scar. With a small bilaterally. Chest examination; clear to auscultation bilaterally. S1-S2 audible, no murmurs. Regular rhythm. Abdomen examination; soft, nondistended. No organomegaly. G-tube in place. Extremity examination; no peripheral edema. NETTING WEAVER examination; patient remains unresponsive. Results Result Diagram: 11/04/16 0720 11/04/16 0720 Results 24 hrs Laboratory Tests Test 11/03/16 17:03 11/03/16 23:55 11/04/16 06:06 11/04/16 07:20 Bedside Glucose 135 129 159 Anion Gap 12 Basophils # 0.1 Basophils % 1.2 Blood Urea Nitrogen 11 Calcium Level 8.2 L Carbon Dioxide Level 26 Chloride Level 97 Creatinine 0.28 L Eosinophils # 0.2 Eosinophils % 1.9 Glucose Level 146 Hematocrit 30.1 L Hemoglobin 10.1 L Lymphocytes # 0.7 L Lymphocytes % 8.5 L Magnesium Level 1.8 Mean Corpuscular Hemoglobin 29.9 Mean Corpuscular Hemoglobin Concent 33.6 Mean Corpuscular Volume 89.1 Mean Platelet Volume 9.1 Monocytes # 0.9 Monocytes % 10.6 Neutrophils # 6.5 Neutrophils % 76.5 Nucleated Red Blood Cells # 0.0 Nucleated Red Blood Cells % 0.0 Phosphorus Level 4.3 Platelet Count 302 Potassium Level 4.0 Red Blood Count 3.38 L Red Cell Distribution Width 15.1 H Sodium Level 131 L White Blood Count 8.5 Test 11/04/16 11:43 Bedside Glucose 168 Medications Medications Current Medications Ondansetron HCl (Zofran Inj) 4 mg Q6H PRN IV NAUSEA AND/OR VOMITING Last administered on 11/02/16 09:52; Admin Dose 4 MG; Start 10/10/16 at 14:00 Nitroglycerin (Nitroglycerin (Sl Tab) 0.4 Mg) 1 tab Q5M PRN SL CHEST PAIN; Start 10/10/16 at 14:00 Acetaminophen (Tylenol Supp) 650 mg Q4H PRN [place] PAIN LEVEL 1-3 OR FEVER Last administered on 10/30/16 14:05; Admin Dose 650 MG; Start 10/10/16 at 14:00 Morphine Sulfate (morphine) 2 mg Q4H PRN IV PAIN LEVEL 7-10 Last administered on 11/03/16 04:59; Admin Dose 2 MG; Start 10/10/16 at 14:00 Lorazepam (Ativan) 1 mg Q2H PRN IV ANXIETY Last administered on 10/15/16 20:27 ; Admin Dose 1 MG; Start 10/10/16 at 14:00 Docusate Sodium (Colace) 100 mg Q12H PRN PO CONSTIPATION; Start 10/10/16 at 14: 00 Hydralazine HCl (Apresoline) 10 mg Q6H PRN IV ELEVATED BLOOD PRESSURE Last administered on 10/29/16 23:43; Admin Dose 10 MG; Start 10/10/16 at 19:00 Atorvastatin Calcium (Lipitor) 40 mg QHS GTB Last administered on 11/03/16 21: 20; Admin Dose 40 MG; Start 10/15/16 at 21:00 Benazepril HCl (Lotensin) 10 mg DAILY GTB Last administered on 11/04/16 09:20; Admin Dose 10 MG; Start 10/15/16 at 12:00 Docusate Sodium (Colace Liquid Cup) 200 mg DAILY PRN GTB CONSTIPATION Last administered on 10/16/16 08:44; Admin Dose 200 MG; Start 10/15/16 at 12:00 Ferrous Sulfate (Feosol Liquid Cup) 330 mg DAILY GTB Last administered on 09:19; Admin Dose 330 MG; Start 10/16/16 at 09:00 Hydralazine HCl (Apresoline) 25 mg Q6H PRN GTB ELEVATED BLOOD PRESSURE Last administered on 10/27/16 12:46; Admin Dose 25 MG; Start 10/15/16 at 12:00 Mineral Oil (Fleet Mineral Oil Enema) 133 ml DAILY PRN [place] CONSTIPATION Last administered on 10/16/16 03:54; Admin Dose 133 ML; Start 10/15/16 at 12:00 Multivitamins Therapeutic (Theragran) 1 tab DAILY PO Last administered on 09:20; Admin Dose 1 TAB; Start 10/15/16 at 12:00 Miscellaneous Information 1 ea NOTE XX ; Start 10/15/16 at 21:30 Glucose (Glutose) 15 gm Q15M PRN PO DECREASED GLUCOSE; Start 10/15/16 at 21:30 Glucose (Glutose) 22.5 gm Q15M PRN PO DECREASED GLUCOSE; Start 10/15/16 at 21: 30 Dextrose (D50w Syringe) 25 ml Q15M PRN IV DECREASED GLUCOSE Last administered on 10/26/16 17:48; Admin Dose 25 ML; Start 10/15/16 at 21:30 Dextrose (D50w Syringe) 50 ml Q15M PRN IV DECREASED GLUCOSE; Start 10/15/16 at 21:30 Glucagon (Glucagen) 1 mg Q15M PRN IM DECREASED GLUCOSE; Start 10/15/16 at 21:30 Glucose (Glutose) 15 gm Q15M PRN BUCCAL DECREASED GLUCOSE; Start 10/15/16 at 21 :30 Metoclopramide HCl (Reglan) 10 mg Q6 IV Last administered on 11/04/16 11:42; Admin Dose 10 MG; Start 10/16/16 at 18:00 Lactulose (Enulose) 30 gm BID GTB Last administered on 11/04/16 09:19; Admin Dose 30 GM; Start 10/16/16 at 21:00 Lansoprazole (Prevacid) 30 mg BID@,18 GTB Last administered on 11/04/16 06:06 ; Admin Dose 30 MG; Start 10/17/16 at 06:00 Carbidopa/Levodopa (Sinemet (25/ 100)) 1 tab TID GTB Last administered on 12:30; Admin Dose 1 TAB; Start 10/16/16 at 21:00 Lidocaine (Lidocaine 5% Oint) 1 applic TID TOP Last administered on 11/04/16 12 :30; Admin Dose 1 APPLIC; Start 10/16/16 at 21:00 Metoprolol Tartrate (Lopressor) 12.5 mg BID GTB Last administered on 11/04/16 09:21; Admin Dose 12.5 MG; Start 10/16/16 at 21:00 Insulin Aspart (Novolog Insulin Pen) NOVOLOG *MILD* ALGORI... Q6 SC Last administered on 11/04/16 11:45; Admin Dose 1 UNIT; Start 10/24/16 at 18:00 Lactobacillus Acidoph/Bulgaricus (Floranex) 2 tab BID GTB Last administered on 11/04/16 09:20; Admin Dose 2 TAB; Start 10/24/16 at 21:00 Nystatin (Nystatin Susp) 5 ml QID GTB Last administered on 11/04/16 12:30; Admin Dose 5 ML; Start 10/24/16 at 21:00 Levetiracetam (Keppra) 1,000 mg BID PO Last administered on 11/04/16 09:20; Admin Dose 1,000 MG; Start 10/26/16 at 21:00 Insulin Glargine (Lantus) 10 unit DAILY@20 SC Last administered on 11/03/16 20: 35; Admin Dose 10 UNIT; Start 10/26/16 at 20:00 Demeclocycline HCl (Declomycin) 300 mg BID GTB Last administered on 11/03/16 09 :32; Admin Dose 300 MG; Start 10/29/16 at 09:00 Potassium Chloride (Potassium Chloride Pwd/Soln) 40 meq DAILY GTB Last administered on 11/04/16t 09:19; Admin Dose 40 MEQ; Start 10/31/16 at 09:00 JUANA DE LEÓN Nov 04, 2016 13:27
--- NOTE | 2016-11-04 16:44 | PN ---
DATE: 11/04/2016 ADDENDUM I met with the patient's family regarding advanced care planning. Patient has became progressively nonverbal and is unable to follow commands. Patient has quadriplegia. The patient's was expla ined that the recent MRI had shown extensive brain tumor, and his prognosis is poor. Multiple optio ns including continue current care, hospice, comfort were discussed. Patient remains a DNR, but she wanted to continue G-tube feeding and wants to continue vent support. She is not ready for comfort care at this time. I gave her copies of MRI from [facility], which done in July and the one done on 10/11/2016. She will contact with the patient's oncologist at [facility]. Patient has not had any chemotherapy since 04/2016 and has been declining since then. Plan of care discussed with the patient's nurse. We will request update of patient's POLST. Total time spent 32 minutes. Dictated By: JENELLE RODRIGUEZ/PIPER Conf#: [id number] DID#: [id number]
--- NOTE | 2016-11-04 18:44 | PN ---
Date/Time of Note Date/Time of Note DATE: 11/04/16 TIME: 18:41 Assessment/Plan VTE Prophylaxis VTE Prophylaxis Intervention: SCD's Lines/Catheters [facility] Type [facility]from [facility] Saline Lock Urinary Cath still in place: Yes Reason Cath still needed: urinary retention Assessment/Plan Chief Complaint/Hosp Course ASSESSMENT AND PLAN: - Persistent Hyponatremia 2 SIADH. Patient is followed by Dr. Tovar in nephrology consultation. Continue demeclocycline. - Dysphagia with PEG. Dr. Mas is following gastroenterology consultation. -Status post aspiration, status post treatment. - Sepsis secondary to urinary tract infection and healthcare-acquired pneumonia. Status post treatment. patient is followed by Dr. Sales in infectious disease consultation. - Ventilator dependent respiratory failure. Dr. Unger is following from pulmonology standpoint. Continue bronchodilators and ventilatory support. 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 - Seizure disorder. Continue Keppra. - Hypertension, continue benazepril and hydralazine. - History of cerebrovascular accident. Continue sequential compression device for deep venous thrombosis prophylaxis and Pepcid for peptic ulcer disease prophylaxis. Further recommendations based on clinical course. Plan of care discussed with Dr. Desir. Problems: Subjective 24 Hr Interval Summary Free Text/Dictation Patient tolerated G-tube feeding at 40 cc/h, continue to increase slowly, continue aspiration precautions. Patient remains afebrile, sinus rhythm. Exam/Review of Systems Vital Signs Vitals Vital Signs Date Time Temp Pulse Resp B/P Pulse Ox O2 Delivery O2 Flow Rate FiO2 11/04/16 17:07 73 14 99 30 11/04/16 15:50 97.4 114/69 Intake and Output 11/03/16 11/03/16 11/04/16 14:59 22:59 06:59 Intake Total 560 ml 530 ml Output Total 400 ml 600 ml Balance 160 ml -70 ml Exam GENERAL: This is a well-developed male on ventilator support, does not respond to verbal internal stimuli. HEENT: Head is atraumatic, normocephalic. Pupils equal, round, reactive to light and accommodation. NECK: Supple. Tracheostomy at the base of the neck. CHEST: Scattered rhonchi bilaterally, slightly diminished at the bases. No wheezes noted. HEART: Normal S1, S2. No murmurs, gallops, clicks, rubs noted. ABDOMEN: Protuberant, soft, nondistended, nontender. Bowel sounds present. EXTREMITIES: Mild edema. There is no clubbing or cyanosis. Pulses equal bilaterally 2+. SKIN: There is no rash, petechiae noted. NEUROLOGIC: The patient is obtunded. Results Result Diagram: 11/04/16 0720 11/04/16 0720 Results 24 hrs Laboratory Tests Test 11/03/16 23:55 11/04/16 06:06 11/04/16 07:20 11/04/16 11:43 Bedside Glucose 129 159 168 Anion Gap 12 Basophils # 0.1 Basophils % 1.2 Blood Urea Nitrogen 11 Calcium Level 8.2 L Carbon Dioxide Level 26 Chloride Level 97 Creatinine 0.28 L Eosinophils # 0.2 Eosinophils % 1.9 Glucose Level 146 Hematocrit 30.1 L Hemoglobin 10.1 L Lymphocytes # 0.7 L Lymphocytes % 8.5 L Magnesium Level 1.8 Mean Corpuscular Hemoglobin 29.9 Mean Corpuscular Hemoglobin Concent 33.6 Mean Corpuscular Volume 89.1 Mean Platelet Volume 9.1 Monocytes # 0.9 Monocytes % 10.6 Neutrophils # 6.5 Neutrophils % 76.5 Nucleated Red Blood Cells # 0.0 Nucleated Red Blood Cells % 0.0 Phosphorus Level 4.3 Platelet Count 302 Potassium Level 4.0 Red Blood Count 3.38 L Red Cell Distribution Width 15.1 H Sodium Level 131 L White Blood Count 8.5 Test 11/04/16 17:09 Bedside Glucose 159 Medications Medications Current Medications Ondansetron HCl (Zofran Inj) 4 mg Q6H PRN IV NAUSEA AND/OR VOMITING Last administered on 11/02/16 09:52; Admin Dose 4 MG; Start 10/10/16 at 14:00 Nitroglycerin (Nitroglycerin (Sl Tab) 0.4 Mg) 1 tab Q5M PRN SL CHEST PAIN; Start 10/10/16 at 14:00 Acetaminophen (Tylenol Supp) 650 mg Q4H PRN [place] PAIN LEVEL 1-3 OR FEVER Last administered on 10/30/16 14:05; Admin Dose 650 MG; Start 10/10/16 at 14:00 Morphine Sulfate (morphine) 2 mg Q4H PRN IV PAIN LEVEL 7-10 Last administered on 11/03/16 04:59; Admin Dose 2 MG; Start 10/10/16 at 14:00 Lorazepam (Ativan) 1 mg Q2H PRN IV ANXIETY Last administered on 10/15/16 20:27 ; Admin Dose 1 MG; Start 10/10/16 at 14:00 Docusate Sodium (Colace) 100 mg Q12H PRN PO CONSTIPATION; Start 10/10/16 at 14: 00 Hydralazine HCl (Apresoline) 10 mg Q6H PRN IV ELEVATED BLOOD PRESSURE Last administered on 10/29/16 23:43; Admin Dose 10 MG; Start 10/10/16 at 19:00 Atorvastatin Calcium (Lipitor) 40 mg QHS GTB Last administered on 11/03/16 21: 20; Admin Dose 40 MG; Start 10/15/16 at 21:00 Benazepril HCl (Lotensin) 10 mg DAILY GTB Last administered on 11/04/16 09:20; Admin Dose 10 MG; Start 10/15/16 at 12:00 Docusate Sodium (Colace Liquid Cup) 200 mg DAILY PRN GTB CONSTIPATION Last administered on 10/16/16 08:44; Admin Dose 200 MG; Start 10/15/16 at 12:00 Ferrous Sulfate (Feosol Liquid Cup) 330 mg DAILY GTB Last administered on 09:19; Admin Dose 330 MG; Start 10/16/16 at 09:00 Hydralazine HCl (Apresoline) 25 mg Q6H PRN GTB ELEVATED BLOOD PRESSURE Last administered on 10/27/16 12:46; Admin Dose 25 MG; Start 10/15/16 at 12:00 Mineral Oil (Fleet Mineral Oil Enema) 133 ml DAILY PRN [place] CONSTIPATION Last administered on 10/16/16 03:54; Admin Dose 133 ML; Start 10/15/16 at 12:00 Multivitamins Therapeutic (Theragran) 1 tab DAILY PO Last administered on 09:20; Admin Dose 1 TAB; Start 10/15/16 at 12:00 Miscellaneous Information 1 ea NOTE XX ; Start 10/15/16 at 21:30 Glucose (Glutose) 15 gm Q15M PRN PO DECREASED GLUCOSE; Start 10/15/16 at 21:30 Glucose (Glutose) 22.5 gm Q15M PRN PO DECREASED GLUCOSE; Start 10/15/16 at 21: 30 Dextrose (D50w Syringe) 25 ml Q15M PRN IV DECREASED GLUCOSE Last administered on 10/26/16 17:48; Admin Dose 25 ML; Start 10/15/16 at 21:30 Dextrose (D50w Syringe) 50 ml Q15M PRN IV DECREASED GLUCOSE; Start 10/15/16 at 21:30 Glucagon (Glucagen) 1 mg Q15M PRN IM DECREASED GLUCOSE; Start 10/15/16 at 21:30 Glucose (Glutose) 15 gm Q15M PRN BUCCAL DECREASED GLUCOSE; Start 10/15/16 at 21 :30 Metoclopramide HCl (Reglan) 10 mg Q6 IV Last administered on 11/04/16 17:07; Admin Dose 10 MG; Start 10/16/16 at 18:00 Lansoprazole (Prevacid) 30 mg BID@,18 GTB Last administered on 11/04/16 17:07 ; Admin Dose 30 MG; Start 10/17/16 at 06:00 Carbidopa/Levodopa (Sinemet (25/ 100)) 1 tab TID GTB Last administered on 12:30; Admin Dose 1 TAB; Start 10/16/16 at 21:00 Lidocaine (Lidocaine 5% Oint) 1 applic TID TOP Last administered on 11/04/16 12 :30; Admin Dose 1 APPLIC; Start 10/16/16 at 21:00 Metoprolol Tartrate (Lopressor) 12.5 mg BID GTB Last administered on 11/04/16 09:21; Admin Dose 12.5 MG; Start 10/16/16 at 21:00 Insulin Aspart (Novolog Insulin Pen) NOVOLOG *MILD* ALGORI... Q6 SC Last administered on 11/04/16 17:10; Admin Dose 1 UNIT; Start 10/24/16 at 18:00 Lactobacillus Acidoph/Bulgaricus (Floranex) 2 tab BID GTB Last administered on 11/04/16 09:20; Admin Dose 2 TAB; Start 10/24/16 at 21:00 Nystatin (Nystatin Susp) 5 ml QID GTB Last administered on 11/04/16 17:07; Admin Dose 5 ML; Start 10/24/16 at 21:00 Levetiracetam (Keppra) 1,000 mg BID PO Last administered on 11/04/16 09:20; Admin Dose 1,000 MG; Start 10/26/16 at 21:00 Insulin Glargine (Lantus) 10 unit DAILY@20 SC Last administered on 11/03/16 20: 35; Admin Dose 10 UNIT; Start 10/26/16 at 20:00 Demeclocycline HCl (Declomycin) 300 mg BID GTB Last administered on 11/03/16 09 :32; Admin Dose 300 MG; Start 10/29/16 at 09:00 Potassium Chloride (Potassium Chloride Pwd/Soln) 40 meq DAILY GTB Last administered on 11/04/16 09:19; Admin Dose 40 MEQ; Start 10/31/16 at 09:00 Lactulose (Enulose) 30 gm TID GTB ; Start 11/04/16 at 21:00 ALTHEA ACOSTA Nov 04, 2016 18:43
[2016-11-04] MEDS: INSULIN GLARGINE [LANtus] 3 ML PEN SC SCH (20:01)
[2016-11-04] MEDS: ATORVASTATIN 40 MG TAB GTB SCH (20:48)
[2016-11-05] VITALS (23 sets, daily range): BP systolic 101–137; BP diastolic 64–84; PULSE 68–80; RESP 14–20
[2016-11-05] MEDS: METOCLOPRAMIDE 10 MG INJ IV SCH ×4 (00:11→17:39)
[2016-11-05] MEDS: INSULIN ASPART [NOVOLOG] 3 ML PEN SC SCH ×4 (00:16→17:41)
[2016-11-05] MEDS: LANSOPRAZOLE 30 MG CAP GTB SCH ×2 (06:17→17:39)
[2016-11-05 06:49] LABS: ADD SCAN DIFF NO
[2016-11-05 06:53] LABS: ABNORMAL IP MESSAGE 1; BASOPHIL # 0.1 10^3/ul (0.0-0.1); BASOPHILS % 1.3 % (0.0-2.0); EOSINOPHILS # 0.2 10^3/ul (0.0-0.5); EOSINOPHILS % 2.2 % (0.0-7.0); HEMATOCRIT 28.5 % (42.0-52.0); HEMOGLOBIN 9.6 g/dl (14.0-18.0); LYMPHOCYTES # 0.6 10^3/ul (0.8-2.9); LYMPHOCYTES % 7.4 % (15.0-51.0); MEAN CORPUSCULAR HEMOGLOBIN 29.4 pg (29.0-33.0); MEAN CORPUSCULAR HGB CONC 33.7 g/dl (32.0-37.0); MEAN CORPUSCULAR VOLUME 87.4 fl (82.0-101.0); MEAN PLATELET VOLUME 8.9 fl (7.4-10.4); MONOCYTE # 0.8 10^3/ul (0.3-0.9); MONOCYTES % 10.5 % (0.0-11.0); NEUTROPHILS % 77.4 % (39.0-77.0); PLATELET COUNT 259 10^3/UL (140-415); RED BLOOD COUNT 3.26 10^6/ul (4.70-6.10); WHITE BLOOD COUNT 7.7 10^3/ul (4.8-10.8)
[2016-11-05 07:03] LABS: INR 1.09; PROTIME 14.1 Sec (12.2-14.2); PT RATIO 1.1
[2016-11-05 07:04] LABS: PARTIAL THROMBOPLASTIN TIME 48.3 Sec (25.0-35.0)
[2016-11-05 07:07] LABS: POTASSIUM 3.9 mmol/L (3.5-5.1)
[2016-11-05 07:10] LABS: CREATININE 0.29 mg/dl (0.61-1.24)
[2016-11-05 07:11] LABS: CALCIUM 8.1 mg/dl (8.4-10.2)
[2016-11-05] MEDS: LACTOBACILLUS CHEW TAB GTB SCH ×2 (09:10→21:22)
[2016-11-05] MEDS: BENAZEPRIL 10 MG TAB GTB SCH (09:10)
[2016-11-05] MEDS: DEMECLOCYCLINE 150 MG TAB GTB SCH ×2 (09:11→21:22)
[2016-11-05] MEDS: MULTIVITAMINS THERAPEUTIC TAB PO SCH (09:11)
[2016-11-05] MEDS: METOPROLOL 25 MG TAB GTB SCH ×2 (09:11→21:23)
[2016-11-05] MEDS: LEVETIRACETAM 500 MG TAB PO SCH ×2 (09:11→21:24)
[2016-11-05] MEDS: CARBIDOPA/LEVODOPA (25/100) TAB GTB SCH ×3 (09:11→21:22)
[2016-11-05] MEDS: FERROUS SULFATE 60 MG/ML 5ML CUP GTB SCH (09:13)
[2016-11-05] MEDS: NYSTATIN SUSP 5 ML CUP GTB SCH ×4 (09:13→21:22)
[2016-11-05] MEDS: LACTULOSE 30ML CUP GTB SCH ×3 (09:15→21:22)
[2016-11-05] MEDS: POTASSIUM CHLORIDE 20 MEQ POWDER FOR ORAL SOLN GTB SCH (09:15)
[2016-11-05] MEDS: LIDOCAINE 5% 35 GM OINT TOP SCH ×3 (09:16→21:24)
--- NOTE | 2016-11-05 11:53 | CONS ---
Date/Time of Note Date/Time of Note DATE: 11/05/16 TIME: 11:50 Assessment/Plan Assessment/Plan Additional Assessment/Plan Ventilator settings; AC of 14, tidal volume 500, PEEP of 5, 30% FiO2. Assessment recommendations; 1. Patient admitted for UTI and sepsis with interval resolution. 2. History of anoxic encephalopathy due to intracerebral bleed. Status post craniotomy. 3. Stable seizure disorder. 4. Stable diabetes and hypertension. 5. Hypernatremia with interval improvement as well. Continue current treatment. Patient awaiting discharge. Consultation Date/Type/Reason Admit Date/Time Oct 10, 2016 at 13:53 Initial Consult Date 10/10/16 Type of Consultation: Pulmonary Referring Provider: MADDY HOPKINS MD 24 HR Interval Summary Free Text/Dictation Patient condition remains stable. Has remained hemodynamically stable. No untoward events reported. General exam; middle-aged man, on ventilator by tracheostomy currently in no distress. Patient remains completely unresponsive. Exam/Review of Systems Vital Signs Vitals Vital Signs Date Time Temp Pulse Resp B/P Pulse Ox O2 Delivery O2 Flow Rate FiO2 11/05/16 11:17 68 14 99 30 11/05/16 07:54 98.1 129/77 Intake and Output 11/04/16 11/04/16 11/05/16 15:00 23:00 07:00 Intake Total 560 ml 600 ml Output Total 350 ml 450 ml Balance 210 ml 150 ml Exam HEENT examination; supple neck, no JVD. No lymphadenopathy. Midline trachea. No thyromegaly. Tracheostomy placed at the insertion site. There is a well- healed frontal craniotomy scar. Pupils are midsize bilaterally. Chest examination; clear to auscultation bilaterally. S1-S2 audible, no murmurs. Regular rhythm. Abdomen examination; soft, nondistended. G-tube in place. Bowel sounds audible. Extremity examination; no peripheral edema. Next [employer] examination; patient remains unresponsive. Results Result Diagram: 11/05/16 0517 11/05/16 0617 Results 24 hrs Laboratory Tests Test 11/04/16 17:09 11/05/16 00:10 11/05/16 05:17 11/05/16 06:16 Bedside Glucose 159 150 142 Activated Partial Thromboplast Time 48.3 H Basophils # 0.1 Basophils % 1.3 Eosinophils # 0.2 Eosinophils % 2.2 Hematocrit 28.5 L Hemoglobin 9.6 L INR International Normalized Ratio 1.09 Lymphocytes # 0.6 L Lymphocytes % 7.4 L Mean Corpuscular Hemoglobin 29.4 Mean Corpuscular Hemoglobin Concent 33.7 Mean Corpuscular Volume 87.4 Mean Platelet Volume 8.9 Monocytes # 0.8 Monocytes % 10.5 Neutrophils # 6.0 Neutrophils % 77.4 H Nucleated Red Blood Cells # 0.0 Nucleated Red Blood Cells % 0.0 Platelet Count 259 Prothrombin Time 14.1 Prothrombin Time Ratio 1.1 Red Blood Count 3.26 L Red Cell Distribution Width 15.0 H White Blood Count 7.7 Test 11/05/16 06:17 11/05/16 11:40 Anion Gap 12 Blood Urea Nitrogen 12 Calcium Level 8.1 L Carbon Dioxide Level 27 Chloride Level 96 L Creatinine 0.29 L Glucose Level 136 Potassium Level 3.9 Sodium Level 131 L Bedside Glucose 158 Medications Medications Current Medications Ondansetron HCl (Zofran Inj) 4 mg Q6H PRN IV NAUSEA AND/OR VOMITING Last administered on 11/02/16 09:52; Admin Dose 4 MG; Start 10/10/16 at 14:00 Nitroglycerin (Nitroglycerin (Sl Tab) 0.4 Mg) 1 tab Q5M PRN SL CHEST PAIN; Start 10/10/16 at 14:00 Acetaminophen (Tylenol Supp) 650 mg Q4H PRN [place] PAIN LEVEL 1-3 OR FEVER Last administered on 10/30/16 14:05; Admin Dose 650 MG; Start 10/10/16 at 14:00 Morphine Sulfate (morphine) 2 mg Q4H PRN IV PAIN LEVEL 7-10 Last administered on 11/03/16 04:59; Admin Dose 2 MG; Start 10/10/16 at 14:00 Lorazepam (Ativan) 1 mg Q2H PRN IV ANXIETY Last administered on 10/15/16 20:27 ; Admin Dose 1 MG; Start 10/10/16 at 14:00 Docusate Sodium (Colace) 100 mg Q12H PRN PO CONSTIPATION; Start 10/10/16 at 14: 00 Hydralazine HCl (Apresoline) 10 mg Q6H PRN IV ELEVATED BLOOD PRESSURE Last administered on 10/29/16 23:43; Admin Dose 10 MG; Start 10/10/16 at 19:00 Atorvastatin Calcium (Lipitor) 40 mg QHS GTB Last administered on 11/04/16 20: 48; Admin Dose 40 MG; Start 10/15/16 at 21:00 Benazepril HCl (Lotensin) 10 mg DAILY GTB Last administered on 11/05/16 09:10; Admin Dose 10 MG; Start 10/15/16 at 12:00 Docusate Sodium (Colace Liquid Cup) 200 mg DAILY PRN GTB CONSTIPATION Last administered on 10/16/16 08:44; Admin Dose 200 MG; Start 10/15/16 at 12:00 Ferrous Sulfate (Feosol Liquid Cup) 330 mg DAILY GTB Last administered on 09:13; Admin Dose 330 MG; Start 10/16/16 at 09:00 Hydralazine HCl (Apresoline) 25 mg Q6H PRN GTB ELEVATED BLOOD PRESSURE Last administered on 10/27/16 12:46; Admin Dose 25 MG; Start 10/15/16 at 12:00 Mineral Oil (Fleet Mineral Oil Enema) 133 ml DAILY PRN [place] CONSTIPATION Last administered on 10/16/16 03:54; Admin Dose 133 ML; Start 10/15/16 at 12:00 Multivitamins Therapeutic (Theragran) 1 tab DAILY PO Last administered on 09:11; Admin Dose 1 TAB; Start 10/15/16 at 12:00 Miscellaneous Information 1 ea NOTE XX ; Start 10/15/16 at 21:30 Glucose (Glutose) 15 gm Q15M PRN PO DECREASED GLUCOSE; Start 10/15/16 at 21:30 Glucose (Glutose) 22.5 gm Q15M PRN PO DECREASED GLUCOSE; Start 10/15/16 at 21: 30 Dextrose (D50w Syringe) 25 ml Q15M PRN IV DECREASED GLUCOSE Last administered on 10/26/16 17:48; Admin Dose 25 ML; Start 10/15/16 at 21:30 Dextrose (D50w Syringe) 50 ml Q15M PRN IV DECREASED GLUCOSE; Start 10/15/16 at 21:30 Glucagon (Glucagen) 1 mg Q15M PRN IM DECREASED GLUCOSE; Start 10/15/16 at 21:30 Glucose (Glutose) 15 gm Q15M PRN BUCCAL DECREASED GLUCOSE; Start 10/15/16 at 21 :30 Metoclopramide HCl (Reglan) 10 mg Q6 IV Last administered on 11/05/16 06:17; Admin Dose 10 MG; Start 10/16/16 at 18:00 Lansoprazole (Prevacid) 30 mg BID@,18 GTB Last administered on 11/05/16 06:17 ; Admin Dose 30 MG; Start 10/17/16 at 06:00 Carbidopa/Levodopa (Sinemet (25/ 100)) 1 tab TID GTB Last administered on 09:11; Admin Dose 1 TAB; Start 10/16/16 at 21:00 Lidocaine (Lidocaine 5% Oint) 1 applic TID TOP Last administered on 11/05/16 09 :16; Admin Dose 1 APPLIC; Start 10/16/16 at 21:00 Metoprolol Tartrate (Lopressor) 12.5 mg BID GTB Last administered on 11/05/16 09:11; Admin Dose 12.5 MG; Start 10/16/16 at 21:00 Insulin Aspart (Novolog Insulin Pen) NOVOLOG *MILD* ALGORI... Q6 SC Last administered on 11/05/16 06:23; Admin Dose 1 UNIT; Start 10/24/16 at 18:00 Lactobacillus Acidoph/Bulgaricus (Floranex) 2 tab BID GTB Last administered on 11/05/16 09:10; Admin Dose 2 TAB; Start 10/24/16 at 21:00 Nystatin (Nystatin Susp) 5 ml QID GTB Last administered on 11/05/16 09:13; Admin Dose 5 ML; Start 10/24/16 at 21:00 Levetiracetam (Keppra) 1,000 mg BID PO Last administered on 11/05/16 09:11; Admin Dose 1,000 MG; Start 10/26/16 at 21:00 Insulin Glargine (Lantus) 10 unit DAILY@20 SC Last administered on 11/04/16 20: 01; Admin Dose 10 UNIT; Start 10/26/16 at 20:00 Demeclocycline HCl (Declomycin) 300 mg BID GTB Last administered on 11/05/16 09 :11; Admin Dose 300 MG; Start 10/29/16 at 09:00 Potassium Chloride (Potassium Chloride Pwd/Soln) 40 meq DAILY GTB Last administered on 11/05/16 09:15; Admin Dose 40 MEQ; Start 10/31/16 at 09:00 Lactulose (Enulose) 30 gm TID GTB Last administered on 11/05/16 09:15; Admin Dose 30 GM; Start 11/04/16 at 21:00 JUANA DE LEÓN Nov 05, 2016 11:53
--- NOTE | 2016-11-05 16:05 | PN ---
Date/Time of Note Date/Time of Note DATE: 11/05/16 TIME: 16:03 Assessment/Plan VTE Prophylaxis VTE Prophylaxis Intervention: SCD's Lines/Catheters IV [facility]from [facility] Saline Lock Urinary Cath still in place: Yes Reason Cath still needed: urinary retention Assessment/Plan Assessment/Plan - Atrial fibrillation with rapid ventricular response. Dr. Grady is following patient in cardiology consultation. Continue metoprolol. Continue telemetry monitoring. - Bilateral pleural effusions, status post right sided thoracentesis, pending thoracentesis of the left side. - Acute hypoxic respiratory failure. Dr. Unger is following in pulmonology consultation. Continue ventilatory support and bronchodilators. - Possible healthcare-acquired left lower lung pneumonia versus aspiration. Continue antibiotics per ID. Dr. Sales is following an infection disease consultation. - E. coli ESBL urinary tract infection, status post treatment. - Sepsis with Ecoli ESBL bacteremia 2 UTI, resolved. - Normocytic anemia. Dr Zambrano is following in hematology consultation. - Dysphagia, with G-tube. Status post G-tube removal by patient. Patient passed swallow eval and was started on pured diet. Patient tolerates pured diet well. - History of chronic respiratory failure with tracheostomy. - Benign prostatic hypertrophy. - Schizoaffective disorder. Continue Seroquel and Ativan as needed for agitation. -Hypo-kalemia, potassium replaced, continue to monitor electrolytes. Continue Lovenox for deep venous thrombosis prophylaxis and Pepcid for peptic ulcer disease prophylaxis. Further recommendations based on clinical course. Plan of care discussed with Dr. Desir. Subjective 24 Hr Interval Summary Free Text/Dictation NAD, afebrile, no new issues reported . dw staff. Subjective hx not possible: pt non-verbal Constitutional: requiring IVF, requiring O2 Exam/Review of Systems Vital Signs Vitals Vital Signs Date Time Temp Pulse Resp B/P Pulse Ox O2 Delivery O2 Flow Rate FiO2 11/05/16 15:51 97.0 69 18 114/70 70 11/05/16 13:13 30 Intake and Output 11/04/16 11/04/16 11/05/16 15:00 23:00 07:00 Intake Total 560 ml 600 ml Output Total 350 ml 450 ml Balance 210 ml 150 ml Exam Constitutional: frail, non-verbal Eyes: nl sclera ENMT: nl external ears & nose Neck: non-tender Respiratory: diminished breath sounds Cardiovascular: nl pulses Gastrointestinal: non-tender, other, soft Musculoskeletal: muscle weakness Extremities: normal pulses Neurological: lethargic Skin: nl turgor Lymph: nontender Results Result Diagram: 11/05/16 0517 11/05/16 0617 Results 24 hrs Laboratory Tests Test 11/04/16 17:09 11/05/16 00:10 11/05/16 05:17 11/05/16 06:16 Bedside Glucose 159 150 142 Activated Partial Thromboplast Time 48.3 H Basophils # 0.1 Basophils % 1.3 Eosinophils # 0.2 Eosinophils % 2.2 Hematocrit 28.5 L Hemoglobin 9.6 L INR International Normalized Ratio 1.09 Lymphocytes # 0.6 L Lymphocytes % 7.4 L Mean Corpuscular Hemoglobin 29.4 Mean Corpuscular Hemoglobin Concent 33.7 Mean Corpuscular Volume 87.4 Mean Platelet Volume 8.9 Monocytes # 0.8 Monocytes % 10.5 Neutrophils # 6.0 Neutrophils % 77.4 H Nucleated Red Blood Cells # 0.0 Nucleated Red Blood Cells % 0.0 Platelet Count 259 Prothrombin Time 14.1 Prothrombin Time Ratio 1.1 Red Blood Count 3.26 L Red Cell Distribution Width 15.0 H White Blood Count 7.7 Test 11/05/16 06:17 11/05/16 11:40 Anion Gap 12 Blood Urea Nitrogen 12 Calcium Level 8.1 L Carbon Dioxide Level 27 Chloride Level 96 L Creatinine 0.29 L Glucose Level 136 Potassium Level 3.9 Sodium Level 131 L Bedside Glucose 158 Medications Medications Current Medications Ondansetron HCl (Zofran Inj) 4 mg Q6H PRN IV NAUSEA AND/OR VOMITING Last administered on 11/02/16 09:52; Admin Dose 4 MG; Start 10/10/16 at 14:00 Nitroglycerin (Nitroglycerin (Sl Tab) 0.4 Mg) 1 tab Q5M PRN SL CHEST PAIN; Start 10/10/16 at 14:00 Acetaminophen (Tylenol Supp) 650 mg Q4H PRN [place] PAIN LEVEL 1-3 OR FEVER Last administered on 10/30/16 14:05; Admin Dose 650 MG; Start 10/10/16 at 14:00 Morphine Sulfate (morphine) 2 mg Q4H PRN IV PAIN LEVEL 7-10 Last administered on 11/03/16 04:59; Admin Dose 2 MG; Start 10/10/16 at 14:00 Lorazepam (Ativan) 1 mg Q2H PRN IV ANXIETY Last administered on 10/15/16 20:27 ; Admin Dose 1 MG; Start 10/10/16 at 14:00 Docusate Sodium (Colace) 100 mg Q12H PRN PO CONSTIPATION; Start 10/10/16 at 14: 00 Hydralazine HCl (Apresoline) 10 mg Q6H PRN IV ELEVATED BLOOD PRESSURE Last administered on 10/29/16 23:43; Admin Dose 10 MG; Start 10/10/16 at 19:00 Atorvastatin Calcium (Lipitor) 40 mg QHS GTB Last administered on 11/04/16 20: 48; Admin Dose 40 MG; Start 10/15/16 at 21:00 Benazepril HCl (Lotensin) 10 mg DAILY GTB Last administered on 11/05/16 09:10; Admin Dose 10 MG; Start 10/15/16 at 12:00 Docusate Sodium (Colace Liquid Cup) 200 mg DAILY PRN GTB CONSTIPATION Last administered on 10/16/16 08:44; Admin Dose 200 MG; Start 10/15/16 at 12:00 Ferrous Sulfate (Feosol Liquid Cup) 330 mg DAILY GTB Last administered on 09:13; Admin Dose 330 MG; Start 10/16/16 at 09:00 Hydralazine HCl (Apresoline) 25 mg Q6H PRN GTB ELEVATED BLOOD PRESSURE Last administered on 10/27/16 12:46; Admin Dose 25 MG; Start 10/15/16 at 12:00 Mineral Oil (Fleet Mineral Oil Enema) 133 ml DAILY PRN [place] CONSTIPATION Last administered on 10/16/16 03:54; Admin Dose 133 ML; Start 10/15/16 at 12:00 Multivitamins Therapeutic (Theragran) 1 tab DAILY PO Last administered on 09:11; Admin Dose 1 TAB; Start 10/15/16 at 12:00 Miscellaneous Information 1 ea NOTE XX ; Start 10/15/16 at 21:30 Glucose (Glutose) 15 gm Q15M PRN PO DECREASED GLUCOSE; Start 10/15/16 at 21:30 Glucose (Glutose) 22.5 gm Q15M PRN PO DECREASED GLUCOSE; Start 10/15/16 at 21: 30 Dextrose (D50w Syringe) 25 ml Q15M PRN IV DECREASED GLUCOSE Last administered on 10/26/16 17:48; Admin Dose 25 ML; Start 10/15/16 at 21:30 Dextrose (D50w Syringe) 50 ml Q15M PRN IV DECREASED GLUCOSE; Start 10/15/16 at 21:30 Glucagon (Glucagen) 1 mg Q15M PRN IM DECREASED GLUCOSE; Start 10/15/16 at 21:30 Glucose (Glutose) 15 gm Q15M PRN BUCCAL DECREASED GLUCOSE; Start 10/15/16 at 21 :30 Metoclopramide HCl (Reglan) 10 mg Q6 IV Last administered on 11/05/16 11:47; Admin Dose 10 MG; Start 10/16/16 at 18:00 Lansoprazole (Prevacid) 30 mg BID@,18 GTB Last administered on 11/05/16 06:17 ; Admin Dose 30 MG; Start 10/17/16 at 06:00 Carbidopa/Levodopa (Sinemet (25/ 100)) 1 tab TID GTB Last administered on 14:46; Admin Dose 1 TAB; Start 10/16/16 at 21:00 Lidocaine (Lidocaine 5% Oint) 1 applic TID TOP Last administered on 11/05/16 14 :46; Admin Dose 1 APPLIC; Start 10/16/16 at 21:00 Metoprolol Tartrate (Lopressor) 12.5 mg BID GTB Last administered on 11/05/16 09:11; Admin Dose 12.5 MG; Start 10/16/16 at 21:00 Insulin Aspart (Novolog Insulin Pen) NOVOLOG *MILD* ALGORI... Q6 SC Last administered on 11/05/16 11:50; Admin Dose 1 UNIT; Start 10/24/16 at 18:00 Lactobacillus Acidoph/Bulgaricus (Floranex) 2 tab BID GTB Last administered on 11/05/16 09:10; Admin Dose 2 TAB; Start 10/24/16 at 21:00 Nystatin (Nystatin Susp) 5 ml QID GTB Last administered on 11/05/16 14:46; Admin Dose 5 ML; Start 10/24/16 at 21:00 Levetiracetam (Keppra) 1,000 mg BID PO Last administered on 11/05/16 09:11; Admin Dose 1,000 MG; Start 10/26/16 at 21:00 Insulin Glargine (Lantus) 10 unit DAILY@20 SC Last administered on 11/04/16 20: 01; Admin Dose 10 UNIT; Start 10/26/16 at 20:00 Demeclocycline HCl (Declomycin) 300 mg BID GTB Last administered on 11/05/16 09 :11; Admin Dose 300 MG; Start 10/29/16 at 09:00 Potassium Chloride (Potassium Chloride Pwd/Soln) 40 meq DAILY GTB Last administered on 11/05/16 09:15; Admin Dose 40 MEQ; Start 10/31/16 at 09:00 Lactulose (Enulose) 30 gm TID GTB Last administered on 11/05/16 14:47; Admin Dose 30 GM; Start 11/04/16 at 21:00 KENYATTA CAPPS Nov 05, 2016 16:04
[2016-11-05] MEDS: INSULIN GLARGINE [LANtus] 3 ML PEN SC SCH (21:00)
[2016-11-05] MEDS: ATORVASTATIN 40 MG TAB GTB SCH (21:30)
--- NOTE | 2016-11-05 21:47 | CONS ---
Date/Time of Note Date/Time of Note DATE: 11/05/16 TIME: 21:46 Assessment/Plan Assessment/Plan Additional Assessment/Plan 1. Severe hyponatremia with a sodium of 119 on admission with seizures, possibly acute on chronic hyponatremia versus acute severe hyponatremia.- pt went from hyponatremia to hypernatremia with treatment with 3% saline and one dose of tolvaptan - then Improved to normal today wtih D5W IVF and DDAVP 0.2mg PO x2 dose 10/15/16- on 10/16/16 again Na dropped to 119 s/p Tovlaptan 15 mg PO x1 on 10/18/16-now Na 143- decreased Demeclocycline to 150mg BID on 10/26/2016- again Na dropped to 120 on 10/30/2016-Now Na 134 yesterday, no labs today to review 2. Seizures secondary to severe hyponatremia. 3. Sepsis secondary to bilateral pneumonia. 4. Ventilator-dependent respiratory failure, status post tracheostomy, on vent. 5. History of a previous brain tumor, had surgery. Currently, status post ventriculoperitoneal shunt in place. 6. History of a previous cerebellar cerebrovascular accident. PLAN: pt received 3 % saline and tolvaptan one dose on 10/10 and 10/11- went into polyuria, Na went from hyponatremia to hypernatremia- now improved to normal with D5W IVF and 2 dose of DDAVP 0.2mg- again today 10/16- na dropped from 140 to 122- given 3% hypertonic saline for another 12 hr - did not respond well, Na again dropped to 119- One dose of tolvaptan 15 mg X 1 10/18/16- Na dropped to 130 10/22/2016- tolvaptan 15 gram po x 1 dose on 09/21/16- now Na normal, - will decreased demeclocycline to 150mg BID on 10/26/16- Na dropped to 125 10/29/16- increased demeclocycline to 300mg PO BID on 10/29/2016- Na again dropped to 120- will give Tolvaptan 15 mg PO x 1 dose on 10/30/2016- Now Na 131 continue demeclocycline 300mg BID onTube feeding continue demeclocycline 300mg PO BID to avoid use of tolvaptan monitor Na, pt has acute on chronic hyponatremia ventilator care as per pulmonary will follow up Consultation Date/Type/Reason Admit Date/Time Oct 10, 2016 at 13:53 Initial Consult Date 10/10/16 Type of Consultation: NEPHROLOGY Reason for Consultation Severe Hyponatremia with seizures Referring Provider: MADDY HOPKINS MD 24 HR Interval Summary Free Text/Dictation Na 131, BP stable, pt still having tube feeding issues Exam/Review of Systems Vital Signs Vitals Vital Signs Date Time Temp Pulse Resp B/P Pulse Ox O2 Delivery O2 Flow Rate FiO2 11/05/16 20:40 80 11/05/16 20:23 97.1 14 101/64 99 11/05/16 16:57 30 Intake and Output 11/04/16 11/04/16 11/05/16 15:00 23:00 07:00 Intake Total 560 ml 600 ml Output Total 350 ml 450 ml Balance 210 ml 150 ml Exam HEENT: Tracheostomy site is clear. LUNGS: Bilateral coarse breath sounds with bilateral basilar rales present and lower lobe rhonchi present. HEART: S1, S2, tachycardia, no murmur. ABDOMEN: Soft. G-tube in place. EXTREMITIES: No clubbing, cyanosis, or edema. The patient is very debilitated. , + steve catheter in place Results Result Diagram: 11/05/16 0517 11/05/16 0617 Results 24 hrs Laboratory Tests Test 11/05/16 00:10 11/05/16 05:17 11/05/16 06:16 11/05/16 06:17 Bedside Glucose 150 142 Activated Partial Thromboplast Time 48.3 H Basophils # 0.1 Basophils % 1.3 Eosinophils # 0.2 Eosinophils % 2.2 Hematocrit 28.5 L Hemoglobin 9.6 L INR International Normalized Ratio 1.09 Lymphocytes # 0.6 L Lymphocytes % 7.4 L Mean Corpuscular Hemoglobin 29.4 Mean Corpuscular Hemoglobin Concent 33.7 Mean Corpuscular Volume 87.4 Mean Platelet Volume 8.9 Monocytes # 0.8 Monocytes % 10.5 Neutrophils # 6.0 Neutrophils % 77.4 H Nucleated Red Blood Cells # 0.0 Nucleated Red Blood Cells % 0.0 Platelet Count 259 Prothrombin Time 14.1 Prothrombin Time Ratio 1.1 Red Blood Count 3.26 L Red Cell Distribution Width 15.0 H White Blood Count 7.7 Anion Gap 12 Blood Urea Nitrogen 12 Calcium Level 8.1 L Carbon Dioxide Level 27 Chloride Level 96 L Creatinine 0.29 L Glucose Level 136 Potassium Level 3.9 Sodium Level 131 L Test 11/05/16 11:40 11/05/16 17:36 11/05/16 20:57 Bedside Glucose 158 171 133 Medications Medications Current Medications Ondansetron HCl (Zofran Inj) 4 mg Q6H PRN IV NAUSEA AND/OR VOMITING Last administered on 11/02/16 09:52; Admin Dose 4 MG; Start 10/10/16 at 14:00 Nitroglycerin (Nitroglycerin (Sl Tab) 0.4 Mg) 1 tab Q5M PRN [place] CHEST PAIN; Start 10/10/16 at 14:00 Acetaminophen (Tylenol Supp) 650 mg Q4H PRN [place] PAIN LEVEL 1-3 OR FEVER Last administered on 10/30/16 14:05; Admin Dose 650 MG; Start 10/10/16 at 14:00 Morphine Sulfate (morphine) 2 mg Q4H PRN [place] PAIN LEVEL 7-10 Last administered on 11/03/16 04:59; Admin Dose 2 MG; Start 10/10/16 at 14:00 Lorazepam (Ativan) 1 mg Q2H PRN IV ANXIETY Last administered on 10/15/16 20:27 ; Admin Dose 1 MG; Start 10/10/16 at 14:00 Docusate Sodium (Colace) 100 mg Q12H PRN PO CONSTIPATION; Start 10/10/16 at 14: 00 Hydralazine HCl (Apresoline) 10 mg Q6H PRN IV ELEVATED BLOOD PRESSURE Last administered on 10/29/16 23:43; Admin Dose 10 MG; Start 10/10/16 at 19:00 Atorvastatin Calcium (Lipitor) 40 mg QHS GTB Last administered on 11/05/16 21: 30; Admin Dose 40 MG; Start 10/15/16 at 21:00 Benazepril HCl (Lotensin) 10 mg DAILY GTB Last administered on 11/05/16 09:10; Admin Dose 10 MG; Start 10/15/16 at 12:00 Docusate Sodium (Colace Liquid Cup) 200 mg DAILY PRN GTB CONSTIPATION Last administered on 10/16/16 08:44; Admin Dose 200 MG; Start 10/15/16 at 12:00 Ferrous Sulfate (Feosol Liquid Cup) 330 mg DAILY GTB Last administered on 09:13; Admin Dose 330 MG; Start 10/16/16 at 09:00 Hydralazine HCl (Apresoline) 25 mg Q6H PRN GTB ELEVATED BLOOD PRESSURE Last administered on 10/27/16 12:46; Admin Dose 25 MG; Start 10/15/16 at 12:00 Mineral Oil (Fleet Mineral Oil Enema) 133 ml DAILY PRN [place] CONSTIPATION Last administered on 10/16/16 03:54; Admin Dose 133 ML; Start 10/15/16 at 12:00 Multivitamins Therapeutic (Theragran) 1 tab DAILY PO Last administered on 09:11; Admin Dose 1 TAB; Start 10/15/16 at 12:00 Miscellaneous Information 1 ea NOTE XX ; Start 10/15/16 at 21:30 Glucose (Glutose) 15 gm Q15M PRN PO DECREASED GLUCOSE; Start 10/15/16 at 21:30 Glucose (Glutose) 22.5 gm Q15M PRN PO DECREASED GLUCOSE; Start 10/15/16 at 21: 30 Dextrose (D50w Syringe) 25 ml Q15M PRN IV DECREASED GLUCOSE Last administered on 10/26/16 17:48; Admin Dose 25 ML; Start 10/15/16 at 21:30 Dextrose (D50w Syringe) 50 ml Q15M PRN IV DECREASED GLUCOSE; Start 10/15/16 at 21:30 Glucagon (Glucagen) 1 mg Q15M PRN IM DECREASED GLUCOSE; Start 10/15/16 at 21:30 Glucose (Glutose) 15 gm Q15M PRN BUCCAL DECREASED GLUCOSE; Start 10/15/16 at 21 :30 Metoclopramide HCl (Reglan) 10 mg Q6 IV Last administered on 11/05/16 17:39; Admin Dose 10 MG; Start 10/16/16 at 18:00 Lansoprazole (Prevacid) 30 mg BID@,18 GTB Last administered on 11/05/16 17:39 ; Admin Dose 30 MG; Start 10/17/16 at 06:00 Carbidopa/Levodopa (Sinemet (25/ 100)) 1 tab TID GTB Last administered on 21:22; Admin Dose 1 TAB; Start 10/16/16 at 21:00 Lidocaine (Lidocaine 5% Oint) 1 applic TID TOP Last administered on 11/05/16 21 :24; Admin Dose 1 APPLIC; Start 10/16/16 at 21:00 Metoprolol Tartrate (Lopressor) 12.5 mg BID GTB Last administered on 11/05/16 21:23; Admin Dose 12.5 MG; Start 10/16/16 at 21:00 Insulin Aspart (Novolog Insulin Pen) NOVOLOG *MILD* ALGORI... Q6 SC Last administered on 11/05/16 17:41; Admin Dose 1 UNIT; Start 10/24/16 at 18:00 Lactobacillus Acidoph/Bulgaricus (Floranex) 2 tab BID GTB Last administered on 11/05/16 21:22; Admin Dose 2 TAB; Start 10/24/16 at 21:00 Nystatin (Nystatin Susp) 5 ml QID GTB Last administered on 11/05/16 21:22; Admin Dose 5 ML; Start 10/24/16 at 21:00 Levetiracetam (Keppra) 1,000 mg BID PO Last administered on 11/05/16 21:24; Admin Dose 1,000 MG; Start 10/26/16 at 21:00 Insulin Glargine (Lantus) 10 unit DAILY@20 SC Last administered on 11/05/16 21: 00; Admin Dose 10 UNIT; Start 10/26/16 at 20:00 Demeclocycline HCl (Declomycin) 300 mg BID GTB Last administered on 11/05/16 21 :22; Admin Dose 300 MG; Start 10/29/16 at 09:00 Potassium Chloride (Potassium Chloride Pwd/Soln) 40 meq DAILY GTB Last administered on 11/05/16 09:15; Admin Dose 40 MEQ; Start 10/31/16 at 09:00 Lactulose (Enulose) 30 gm TID GTB Last administered on 11/05/16 21:22; Admin Dose 30 GM; Start 11/04/16 at 21:00 LISSA PARK MD Nov 05, 2016 21:47
[2016-11-06] VITALS (24 sets, daily range): BP systolic 104–141; BP diastolic 60–76; PULSE 64–76; RESP 14–24
[2016-11-06] MEDS: METOCLOPRAMIDE 10 MG INJ IV SCH ×4 (00:10→18:08)
[2016-11-06] MEDS: INSULIN ASPART [NOVOLOG] 3 ML PEN SC SCH ×4 (00:18→18:13)
[2016-11-06] MEDS: LANSOPRAZOLE 30 MG CAP GTB SCH ×2 (06:10→18:35)
[2016-11-06 06:23] LABS: ADD SCAN DIFF NO
[2016-11-06 06:26] LABS: BASOPHIL # 0.1 10^3/ul (0.0-0.1); BASOPHILS % 1.1 % (0.0-2.0); EOSINOPHILS # 0.2 10^3/ul (0.0-0.5); EOSINOPHILS % 2.2 % (0.0-7.0); HEMATOCRIT 27.9 % (42.0-52.0); HEMOGLOBIN 9.2 g/dl (14.0-18.0); LYMPHOCYTES # 0.8 10^3/ul (0.8-2.9); LYMPHOCYTES % 10.4 % (15.0-51.0); MEAN CORPUSCULAR HEMOGLOBIN 29.5 pg (29.0-33.0); MEAN CORPUSCULAR VOLUME 89.4 fl (82.0-101.0); MEAN PLATELET VOLUME 9.1 fl (7.4-10.4); MONOCYTES % 12.9 % (0.0-11.0); NEUTROPHIL # 5.8 10^3/ul (1.6-7.5); NEUTROPHILS % 71.5 % (39.0-77.0); PLATELET COUNT 243 10^3/UL (140-415); RED BLOOD COUNT 3.12 10^6/ul (4.70-6.10); WHITE BLOOD COUNT 8.1 10^3/ul (4.8-10.8)
[2016-11-06 06:49] LABS: POTASSIUM 3.9 mmol/L (3.5-5.1)
[2016-11-06 06:52] LABS: CREATININE 0.26 mg/dl (0.61-1.24)
[2016-11-06] MEDS: LACTOBACILLUS CHEW TAB GTB SCH ×2 (08:11→21:16)
[2016-11-06] MEDS: BENAZEPRIL 10 MG TAB GTB SCH (08:11)
[2016-11-06] MEDS: MULTIVITAMINS THERAPEUTIC TAB PO SCH (08:12)
[2016-11-06] MEDS: POTASSIUM CHLORIDE 20 MEQ POWDER FOR ORAL SOLN GTB SCH (08:12)
[2016-11-06] MEDS: DEMECLOCYCLINE 150 MG TAB GTB SCH ×2 (08:12→21:16)
[2016-11-06] MEDS: LEVETIRACETAM 500 MG TAB PO SCH ×2 (08:12→21:17)
[2016-11-06] MEDS: CARBIDOPA/LEVODOPA (25/100) TAB GTB SCH ×3 (08:12→21:17)
[2016-11-06] MEDS: FERROUS SULFATE 60 MG/ML 5ML CUP GTB SCH (08:13)
[2016-11-06] MEDS: METOPROLOL 25 MG TAB GTB SCH ×2 (08:13→21:17)
[2016-11-06] MEDS: LIDOCAINE 5% 35 GM OINT TOP SCH ×3 (08:13→21:17)
[2016-11-06] MEDS: LACTULOSE 30ML CUP GTB SCH ×3 (08:13→21:16)
[2016-11-06] MEDS: NYSTATIN SUSP 5 ML CUP GTB SCH ×4 (08:13→21:16)
--- NOTE | 2016-11-06 12:14 | CONS ---
Date/Time of Note Date/Time of Note DATE: 11/06/16 TIME: 12:13 Assessment/Plan Assessment/Plan Additional Assessment/Plan 1. Severe hyponatremia with a sodium of 119 on admission with seizures, possibly acute on chronic hyponatremia versus acute severe hyponatremia.- pt went from hyponatremia to hypernatremia with treatment with 3% saline and one dose of tolvaptan - then Improved to normal today wtih D5W IVF and DDAVP 0.2mg PO x2 dose 10/15/16- on 10/16/16 again Na dropped to 119 s/p Tovlaptan 15 mg PO x1 on 10/18/16-now Na 143- decreased Demeclocycline to 150mg BID on 10/26/2016- again Na dropped to 120 on 10/30/2016-Now Na 134 yesterday, no labs today to review 2. Seizures secondary to severe hyponatremia. 3. Sepsis secondary to bilateral pneumonia. 4. Ventilator-dependent respiratory failure, status post tracheostomy, on vent. 5. History of a previous brain tumor, had surgery. Currently, status post ventriculoperitoneal shunt in place. 6. History of a previous cerebellar cerebrovascular accident. PLAN: pt received 3 % saline and tolvaptan one dose on 10/10 and 10/11- went into polyuria, Na went from hyponatremia to hypernatremia- now improved to normal with D5W IVF and 2 dose of DDAVP 0.2mg- again today 10/16- na dropped from 140 to 122- given 3% hypertonic saline for another 12 hr - did not respond well, Na again dropped to 119- One dose of tolvaptan 15 mg X 1 10/18/16- Na dropped to 130 10/22/2016- tolvaptan 15 gram po x 1 dose on 09/21/16- now Na normal, - will decreased demeclocycline to 150mg BID on 10/26/16- Na dropped to 125 10/29/16- increased demeclocycline to 300mg PO BID on 10/29/2016- Na again dropped to 120- will give Tolvaptan 15 mg PO x 1 dose on 10/30/2016- Now Na 131 continue demeclocycline 300mg BID onTube feeding continue demeclocycline 300mg PO BID to avoid use of tolvaptan monitor Na, pt has acute on chronic hyponatremia ventilator care as per pulmonary will follow up Consultation Date/Type/Reason Admit Date/Time Oct 10, 2016 at 13:53 Initial Consult Date 10/10/16 Type of Consultation: NEPHROLOGY Referring Provider: MADDY HOPKINS MD 24 HR Interval Summary Free Text/Dictation pt is still having G tube, Na 131, Exam/Review of Systems Vital Signs Vitals Vital Signs Date Time Temp Pulse Resp B/P Pulse Ox O2 Delivery O2 Flow Rate FiO2 11/06/16 11:02 98.2 65 24 104/61 95 11/06/16 09:06 30 Intake and Output 11/05/16 11/05/16 11/06/16 15:00 23:00 07:00 Intake Total 210 ml 810 ml 850 ml Output Total 300 ml 300 ml Balance 210 ml 510 ml 550 ml Exam HEENT: Tracheostomy site is clear. LUNGS: Bilateral coarse breath sounds with bilateral basilar rales present and lower lobe rhonchi present. HEART: S1, S2, tachycardia, no murmur. ABDOMEN: Soft. G-tube in place. EXTREMITIES: No clubbing, cyanosis, or edema. The patient is very debilitated. , + steve catheter in place Results Result Diagram: 11/06/16 0535 11/06/16 0545 Results 24 hrs Laboratory Tests Test 11/05/16 17:36 11/05/16 20:57 11/06/16 00:11 11/06/16 05:35 Bedside Glucose 171 133 148 Basophils # 0.1 Basophils % 1.1 Eosinophils # 0.2 Eosinophils % 2.2 Hematocrit 27.9 L Hemoglobin 9.2 L Lymphocytes # 0.8 Lymphocytes % 10.4 L Mean Corpuscular Hemoglobin 29.5 Mean Corpuscular Hemoglobin Concent 33.0 Mean Corpuscular Volume 89.4 Mean Platelet Volume 9.1 Monocytes # 1.0 H Monocytes % 12.9 H Neutrophils # 5.8 Neutrophils % 71.5 Nucleated Red Blood Cells # 0.0 Nucleated Red Blood Cells % 0.0 Platelet Count 243 Red Blood Count 3.12 L Red Cell Distribution Width 15.0 H White Blood Count 8.1 Test 11/06/16 05:45 11/06/16 06:11 Anion Gap 10 Blood Urea Nitrogen 11 Calcium Level 8.0 L Carbon Dioxide Level 27 Chloride Level 98 Creatinine 0.26 L Glucose Level 99 Potassium Level 3.9 Sodium Level 131 L Bedside Glucose 112 Medications Medications Current Medications Ondansetron HCl (Zofran Inj) 4 mg Q6H PRN IV NAUSEA AND/OR VOMITING Last administered on 11/02/16 09:52; Admin Dose 4 MG; Start 10/10/16 at 14:00 Nitroglycerin (Nitroglycerin (Sl Tab) 0.4 Mg) 1 tab Q5M PRN SL CHEST PAIN; Start 10/10/16 at 14:00 Acetaminophen (Tylenol Supp) 650 mg Q4H PRN [place] PAIN LEVEL 1-3 OR FEVER Last administered on 10/30/16 14:05; Admin Dose 650 MG; Start 10/10/16 at 14:00 Morphine Sulfate (morphine) 2 mg Q4H PRN [place] PAIN LEVEL 7-10 Last administered on 11/03/16 04:59; Admin Dose 2 MG; Start 10/10/16 at 14:00 Lorazepam (Ativan) 1 mg Q2H PRN IV ANXIETY Last administered on 10/15/16 20:27 ; Admin Dose 1 MG; Start 10/10/16 at 14:00 Docusate Sodium (Colace) 100 mg Q12H PRN PO CONSTIPATION; Start 10/10/16 at 14: 00 Hydralazine HCl (Apresoline) 10 mg Q6H PRN IV ELEVATED BLOOD PRESSURE Last administered on 10/29/16 23:43; Admin Dose 10 MG; Start 10/10/16 at 19:00 Atorvastatin Calcium (Lipitor) 40 mg QHS GTB Last administered on 11/05/16 21: 30; Admin Dose 40 MG; Start 10/15/16 at 21:00 Benazepril HCl (Lotensin) 10 mg DAILY GTB Last administered on 11/06/16 08:11 ; Admin Dose 10 MG; Start 10/15/16 at 12:00 Docusate Sodium (Colace Liquid Cup) 200 mg DAILY PRN GTB CONSTIPATION Last administered on 10/16/16 08:44; Admin Dose 200 MG; Start 10/15/16 at 12:00 Ferrous Sulfate (Feosol Liquid Cup) 330 mg DAILY GTB Last administered on 08:13; Admin Dose 330 MG; Start 10/16/16 at 09:00 Hydralazine HCl (Apresoline) 25 mg Q6H PRN GTB ELEVATED BLOOD PRESSURE Last administered on 10/27/16 12:46; Admin Dose 25 MG; Start 10/15/16 at 12:00 Mineral Oil (Fleet Mineral Oil Enema) 133 ml DAILY PRN [place] CONSTIPATION Last administered on 10/16/16 03:54; Admin Dose 133 ML; Start 10/15/16 at 12:00 Multivitamins Therapeutic (Theragran) 1 tab DAILY PO Last administered on 08:12; Admin Dose 1 TAB; Start 10/15/16 at 12:00 Miscellaneous Information 1 ea NOTE XX ; Start 10/15/16 at 21:30 Glucose (Glutose) 15 gm Q15M PRN PO DECREASED GLUCOSE; Start 10/15/16 at 21:30 Glucose (Glutose) 22.5 gm Q15M PRN PO DECREASED GLUCOSE; Start 10/15/16 at 21: 30 Dextrose (D50w Syringe) 25 ml Q15M PRN IV DECREASED GLUCOSE Last administered on 10/26/16 17:48; Admin Dose 25 ML; Start 10/15/16 at 21:30 Dextrose (D50w Syringe) 50 ml Q15M PRN IV DECREASED GLUCOSE; Start 10/15/16 at 21:30 Glucagon (Glucagen) 1 mg Q15M PRN IM DECREASED GLUCOSE; Start 10/15/16 at 21:30 Glucose (Glutose) 15 gm Q15M PRN BUCCAL DECREASED GLUCOSE; Start 10/15/16 at 21 :30 Metoclopramide HCl (Reglan) 10 mg Q6 IV Last administered on 11/06/16 06:09; Admin Dose 10 MG; Start 10/16/16 at 18:00 Lansoprazole (Prevacid) 30 mg BID@,18 GTB Last administered on 11/06/16 06: 10; Admin Dose 30 MG; Start 10/17/16 at 06:00 Carbidopa/Levodopa (Sinemet (25/ 100)) 1 tab TID GTB Last administered on 08:12; Admin Dose 1 TAB; Start 10/16/16 at 21:00 Lidocaine (Lidocaine 5% Oint) 1 applic TID TOP Last administered on 11/06/16 08:13; Admin Dose 1 APPLIC; Start 10/16/16 at 21:00 Metoprolol Tartrate (Lopressor) 12.5 mg BID GTB Last administered on 11/06/16 08:13; Admin Dose 12.5 MG; Start 10/16/16 at 21:00 Insulin Aspart (Novolog Insulin Pen) NOVOLOG *MILD* ALGORI... Q6 SC Last administered on 11/06/16 00:18; Admin Dose 1 UNIT; Start 10/24/16 at 18:00 Lactobacillus Acidoph/Bulgaricus (Floranex) 2 tab BID GTB Last administered on 11/06/16 08:11; Admin Dose 2 TAB; Start 10/24/16 at 21:00 Nystatin (Nystatin Susp) 5 ml QID GTB Last administered on 11/06/16 08:13; Admin Dose 5 ML; Start 10/24/16 at 21:00 Levetiracetam (Keppra) 1,000 mg BID PO Last administered on 11/06/16 08:12; Admin Dose 1,000 MG; Start 10/26/16 at 21:00 Insulin Glargine (Lantus) 10 unit DAILY@20 SC Last administered on 11/05/16 21: 00; Admin Dose 10 UNIT; Start 10/26/16 at 20:00 Demeclocycline HCl (Declomycin) 300 mg BID GTB Last administered on 11/06/16 08:12; Admin Dose 300 MG; Start 10/29/16 at 09:00 Potassium Chloride (Potassium Chloride Pwd/Soln) 40 meq DAILY GTB Last administered on 11/06/16 08:12; Admin Dose 40 MEQ; Start 10/31/16 at 09:00 Lactulose (Enulose) 30 gm TID GTB Last administered on 11/06/16 08:13; Admin Dose 30 GM; Start 11/04/16 at 21:00 LISSA PARK MD Nov 06, 2016 12:14
--- NOTE | 2016-11-06 14:16 | CONS ---
Date/Time of Note Date/Time of Note DATE: 11/06/16 TIME: 14:14 Assessment/Plan Assessment/Plan Additional Assessment/Plan Ventilator settings; AC of 14, tidal volume 500, PEEP of 5, 30% FiO2. Assessment and recommendations; 1. Patient admitted for UTI and sepsis with marked overall improvement. 2. History of anoxic and brain injury and craniotomy. 3. Stable seizure disorder. 4. Stable diabetes and hypertension. Next 5. Hyponatremia. Sodium level is 131 from today. Continue current treatment. Patient awaiting transfer to residential/rehab facility. Consultation Date/Type/Reason Admit Date/Time Oct 10, 2016 at 13:53 Initial Consult Date 10/10/16 Type of Consultation: Pulmonary Referring Provider: MADDY HOPKINS MD 24 HR Interval Summary Free Text/Dictation Patient condition is stable. Remains unresponsive due to anoxic brain injury. Has remained hemodynamically stable. No seizure activity noted. General exam; middle-aged man, on ventilator via tracheostomy unresponsive. Currently in no distress Exam/Review of Systems Vital Signs Vitals Vital Signs Date Time Temp Pulse Resp B/P Pulse Ox O2 Delivery O2 Flow Rate FiO2 11/06/16 12:16 66 11/06/16 11:45 14 98 30 11/06/16 11:02 98.2 104/61 Intake and Output 11/05/16 11/05/16 11/06/16 15:00 23:00 07:00 Intake Total 210 ml 810 ml 850 ml Output Total 300 ml 300 ml Balance 210 ml 510 ml 550 ml Exam HEENT exam; supple neck, no JVD. No lymphadenopathy. Midline trachea. Tracheostomy in place. With clean insertion site. There is a well-healed frontal craniotomy scar. Chest examination; clear to auscultation bilaterally. S1-S2 audible, no murmurs. Regular rhythm. Abdomen examination; soft, nondistended, no organomegaly. G-tube in place. Bowel sounds audible. Extremity examination; no peripheral edema. [employer] examination a micro patient remains unresponsive. Results Result Diagram: 11/06/16 0535 11/06/16 0545 Results 24 hrs Laboratory Tests Test 11/05/16 17:36 11/05/16 20:57 11/06/16 00:11 11/06/16 05:35 Bedside Glucose 171 133 148 Basophils # 0.1 Basophils % 1.1 Eosinophils # 0.2 Eosinophils % 2.2 Hematocrit 27.9 L Hemoglobin 9.2 L Lymphocytes # 0.8 Lymphocytes % 10.4 L Mean Corpuscular Hemoglobin 29.5 Mean Corpuscular Hemoglobin Concent 33.0 Mean Corpuscular Volume 89.4 Mean Platelet Volume 9.1 Monocytes # 1.0 H Monocytes % 12.9 H Neutrophils # 5.8 Neutrophils % 71.5 Nucleated Red Blood Cells # 0.0 Nucleated Red Blood Cells % 0.0 Platelet Count 243 Red Blood Count 3.12 L Red Cell Distribution Width 15.0 H White Blood Count 8.1 Test 11/06/16 05:45 11/06/16 06:11 11/06/16 13:01 Anion Gap 10 Blood Urea Nitrogen 11 Calcium Level 8.0 L Carbon Dioxide Level 27 Chloride Level 98 Creatinine 0.26 L Glucose Level 99 Potassium Level 3.9 Sodium Level 131 L Bedside Glucose 112 144 Medications Medications Current Medications Ondansetron HCl (Zofran Inj) 4 mg Q6H PRN IV NAUSEA AND/OR VOMITING Last administered on 11/02/16 09:52; Admin Dose 4 MG; Start 10/10/16 at 14:00 Nitroglycerin (Nitroglycerin (Sl Tab) 0.4 Mg) 1 tab Q5M PRN SL CHEST PAIN; Start 10/10/16 at 14:00 Acetaminophen (Tylenol Supp) 650 mg Q4H PRN [place] PAIN LEVEL 1-3 OR FEVER Last administered on 10/30/16 14:05; Admin Dose 650 MG; Start 10/10/16 at 14:00 Morphine Sulfate (morphine) 2 mg Q4H PRN IV PAIN LEVEL 7-10 Last administered on 11/03/16 04:59; Admin Dose 2 MG; Start 10/10/16 at 14:00 Lorazepam (Ativan) 1 mg Q2H PRN IV ANXIETY Last administered on 10/15/16 20:27 ; Admin Dose 1 MG; Start 10/10/16 at 14:00 Docusate Sodium (Colace) 100 mg Q12H PRN PO CONSTIPATION; Start 10/10/16 at 14: 00 Hydralazine HCl (Apresoline) 10 mg Q6H PRN IV ELEVATED BLOOD PRESSURE Last administered on 10/29/16 23:43; Admin Dose 10 MG; Start 10/10/16 at 19:00 Atorvastatin Calcium (Lipitor) 40 mg QHS GTB Last administered on 11/05/16 21: 30; Admin Dose 40 MG; Start 10/15/16 at 21:00 Benazepril HCl (Lotensin) 10 mg DAILY GTB Last administered on 11/06/16 08:11 ; Admin Dose 10 MG; Start 10/15/16 at 12:00 Docusate Sodium (Colace Liquid Cup) 200 mg DAILY PRN GTB CONSTIPATION Last administered on 10/16/16 08:44; Admin Dose 200 MG; Start 10/15/16 at 12:00 Ferrous Sulfate (Feosol Liquid Cup) 330 mg DAILY GTB Last administered on 08:13; Admin Dose 330 MG; Start 10/16/16 at 09:00 Hydralazine HCl (Apresoline) 25 mg Q6H PRN GTB ELEVATED BLOOD PRESSURE Last administered on 10/27/16 12:46; Admin Dose 25 MG; Start 10/15/16 at 12:00 Mineral Oil (Fleet Mineral Oil Enema) 133 ml DAILY PRN [place] CONSTIPATION Last administered on 10/16/16 03:54; Admin Dose 133 ML; Start 10/15/16 at 12:00 Multivitamins Therapeutic (Theragran) 1 tab DAILY PO Last administered on 08:12; Admin Dose 1 TAB; Start 10/15/16 at 12:00 Miscellaneous Information 1 ea NOTE XX ; Start 10/15/16 at 21:30 Glucose (Glutose) 15 gm Q15M PRN PO DECREASED GLUCOSE; Start 10/15/16 at 21:30 Glucose (Glutose) 22.5 gm Q15M PRN PO DECREASED GLUCOSE; Start 10/15/16 at 21: 30 Dextrose (D50w Syringe) 25 ml Q15M PRN IV DECREASED GLUCOSE Last administered on 10/26/16 17:48; Admin Dose 25 ML; Start 10/15/16 at 21:30 Dextrose (D50w Syringe) 50 ml Q15M PRN IV DECREASED GLUCOSE; Start 10/15/16 at 21:30 Glucagon (Glucagen) 1 mg Q15M PRN IM DECREASED GLUCOSE; Start 10/15/16 at 21:30 Glucose (Glutose) 15 gm Q15M PRN BUCCAL DECREASED GLUCOSE; Start 10/15/16 at 21 :30 Metoclopramide HCl (Reglan) 10 mg Q6 IV Last administered on 11/06/16 13:02; Admin Dose 10 MG; Start 10/16/16 at 18:00 Lansoprazole (Prevacid) 30 mg BID@06,18 GTB Last administered on 11/06/16 06: 10; Admin Dose 30 MG; Start 10/17/16 at 06:00 Carbidopa/Levodopa (Sinemet (25/ 100)) 1 tab TID GTB Last administered on 13:02; Admin Dose 1 TAB; Start 10/16/16 at 21:00 Lidocaine (Lidocaine 5% Oint) 1 applic TID TOP Last administered on 11/06/16 13:11; Admin Dose 1 APPLIC; Start 10/16/16 at 21:00 Metoprolol Tartrate (Lopressor) 12.5 mg BID GTB Last administered on 11/06/16 08:13; Admin Dose 12.5 MG; Start 10/16/16 at 21:00 Insulin Aspart (Novolog Insulin Pen) NOVOLOG *MILD* ALGORI... Q6 SC Last administered on 11/06/16 13:04; Admin Dose 1 UNIT; Start 10/24/16 at 18:00 Lactobacillus Acidoph/Bulgaricus (Floranex) 2 tab BID GTB Last administered on 11/06/16 08:11; Admin Dose 2 TAB; Start 10/24/16 at 21:00 Nystatin (Nystatin Susp) 5 ml QID GTB Last administered on 11/06/16 13:02; Admin Dose 5 ML; Start 10/24/16 at 21:00 Levetiracetam (Keppra) 1,000 mg BID PO Last administered on 11/06/16 08:12; Admin Dose 1,000 MG; Start 10/26/16 at 21:00 Insulin Glargine (Lantus) 10 unit DAILY@20 SC Last administered on 11/05/16 21: 00; Admin Dose 10 UNIT; Start 10/26/16 at 20:00 Demeclocycline HCl (Declomycin) 300 mg BID GTB Last administered on 11/06/16 08:12; Admin Dose 300 MG; Start 10/29/16 at 09:00 Potassium Chloride (Potassium Chloride Pwd/Soln) 40 meq DAILY GTB Last administered on 11/06/16 08:12; Admin Dose 40 MEQ; Start 10/31/16 at 09:00 Lactulose (Enulose) 30 gm TID GTB Last administered on 11/06/16 13:02; Admin Dose 30 GM; Start 11/04/16 at 21:00 JUANA DE LEÓN Nov 06, 2016 14:16
--- NOTE | 2016-11-06 17:56 | PN ---
Date/Time of Note Date/Time of Note DATE: 11/06/16 TIME: 17:54 Assessment/Plan VTE Prophylaxis VTE Prophylaxis Intervention: SCD's Lines/Catheters IV C[facility]ter Type (from [facility] Peripheral IV Urinary Cath still in place: Yes Reason Cath still needed: urinary retention Assessment/Plan Chief Complaint/Hosp Course ASSESSMENT AND PLAN: - Persistent Hyponatremia 2 SIADH. Patient is followed by Dr. Tovar in nephrology consultation. Continue demeclocycline. - Dysphagia with PEG. Dr. Mas is following gastroenterology consultation. - Status post aspiration, status post treatment. - Sepsis secondary to urinary tract infection and healthcare-acquired pneumonia. Status post treatment. patient is followed by Dr. Sales in infectious disease consultation. - Ventilator dependent respiratory failure. Dr. Unger is following from pulmonology standpoint. Continue bronchodilators and ventilatory support. 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 - Seizure disorder. Continue Keppra. - Hypertension, continue benazepril and hydralazine. - History of cerebrovascular accident. Continue sequential compression device for deep venous thrombosis prophylaxis and Pepcid for peptic ulcer disease prophylaxis. Further recommendations based on clinical course. Plan of care discussed with Dr. Desir. Problems: Subjective 24 Hr Interval Summary Free Text/Dictation Patient was tolerating G-tube feeding at the rate of 50cc/hr until today, when residual was 175, G-tube feeding is held. Patient remains afebrile. Exam/Review of Systems Vital Signs Vitals Vital Signs Date Time Temp Pulse Resp B/P Pulse Ox O2 Delivery O2 Flow Rate FiO2 11/06/16 17:41 79 16 98 30 11/06/16 15:02 98.5 112/60 Intake and Output 11/05/16 11/05/16 11/06/16 15:00 23:00 07:00 Intake Total 210 ml 810 ml 850 ml Output Total 300 ml 300 ml Balance 210 ml 510 ml 550 ml Exam GENERAL: This is a well-developed male on ventilator support, does not respond to verbal internal stimuli. HEENT: Head is atraumatic, normocephalic. Pupils equal, round, reactive to light and accommodation. NECK: Supple. Tracheostomy at the base of the neck. CHEST: Scattered rhonchi bilaterally, slightly diminished at the bases. No wheezes noted. HEART: Normal S1, S2. No murmurs, gallops, clicks, rubs noted. ABDOMEN: Protuberant, soft, nondistended, nontender. Bowel sounds present. EXTREMITIES: Mild edema. There is no clubbing or cyanosis. Pulses equal bilaterally 2+. SKIN: There is no rash, petechiae noted. NEUROLOGIC: The patient is obtunded. Results Result Diagram: 11/06/16 0535 11/06/16 0545 Results 24 hrs Laboratory Tests Test 11/05/16 20:57 11/06/16 00:11 11/06/16 05:35 11/06/16 05:45 Bedside Glucose 133 148 Basophils # 0.1 Basophils % 1.1 Eosinophils # 0.2 Eosinophils % 2.2 Hematocrit 27.9 L Hemoglobin 9.2 L Lymphocytes # 0.8 Lymphocytes % 10.4 L Mean Corpuscular Hemoglobin 29.5 Mean Corpuscular Hemoglobin Concent 33.0 Mean Corpuscular Volume 89.4 Mean Platelet Volume 9.1 Monocytes # 1.0 H Monocytes % 12.9 H Neutrophils # 5.8 Neutrophils % 71.5 Nucleated Red Blood Cells # 0.0 Nucleated Red Blood Cells % 0.0 Platelet Count 243 Red Blood Count 3.12 L Red Cell Distribution Width 15.0 H White Blood Count 8.1 Anion Gap 10 Blood Urea Nitrogen 11 Calcium Level 8.0 L Carbon Dioxide Level 27 Chloride Level 98 Creatinine 0.26 L Glucose Level 99 Potassium Level 3.9 Sodium Level 131 L Test 11/06/16 06:11 11/06/16 13:01 Bedside Glucose 112 144 Medications Medications Current Medications Ondansetron HCl (Zofran Inj) 4 mg Q6H PRN IV NAUSEA AND/OR VOMITING Last administered on 11/02/16 09:52; Admin Dose 4 MG; Start 10/10/16 at 14:00 Nitroglycerin (Nitroglycerin (Sl Tab) 0.4 Mg) 1 tab Q5M PRN SL CHEST PAIN; Start 10/10/16 at 14:00 Acetaminophen (Tylenol Supp) 650 mg Q4H PRN [place] PAIN LEVEL 1-3 OR FEVER Last administered on 10/30/16 14:05; Admin Dose 650 MG; Start 10/10/16 at 14:00 Morphine Sulfate (morphine) 2 mg Q4H PRN IV PAIN LEVEL 7-10 Last administered on 11/03/16 04:59; Admin Dose 2 MG; Start 10/10/16 at 14:00 Lorazepam (Ativan) 1 mg Q2H PRN IV ANXIETY Last administered on 10/15/16 20:27 ; Admin Dose 1 MG; Start 10/10/16 at 14:00 Docusate Sodium (Colace) 100 mg Q12H PRN PO CONSTIPATION; Start 10/10/16 at 14: 00 Hydralazine HCl (Apresoline) 10 mg Q6H PRN IV ELEVATED BLOOD PRESSURE Last administered on 10/29/16 23:43; Admin Dose 10 MG; Start 10/10/16 at 19:00 Atorvastatin Calcium (Lipitor) 40 mg QHS GTB Last administered on 11/05/16 21: 30; Admin Dose 40 MG; Start 10/15/16 at 21:00 Benazepril HCl (Lotensin) 10 mg DAILY GTB Last administered on 11/06/16 08:11 ; Admin Dose 10 MG; Start 10/15/16 at 12:00 Docusate Sodium (Colace Liquid Cup) 200 mg DAILY PRN GTB CONSTIPATION Last administered on 10/16/16 08:44; Admin Dose 200 MG; Start 10/15/16 at 12:00 Ferrous Sulfate (Feosol Liquid Cup) 330 mg DAILY GTB Last administered on 08:13; Admin Dose 330 MG; Start 10/16/16 at 09:00 Hydralazine HCl (Apresoline) 25 mg Q6H PRN GTB ELEVATED BLOOD PRESSURE Last administered on 10/27/16 12:46; Admin Dose 25 MG; Start 10/15/16 at 12:00 Mineral Oil (Fleet Mineral Oil Enema) 133 ml DAILY PRN [place] CONSTIPATION Last administered on 10/16/16 03:54; Admin Dose 133 ML; Start 10/15/16 at 12:00 Multivitamins Therapeutic (Theragran) 1 tab DAILY PO Last administered on 08:12; Admin Dose 1 TAB; Start 10/15/16 at 12:00 Miscellaneous Information 1 ea NOTE XX ; Start 10/15/16 at 21:30 Glucose (Glutose) 15 gm Q15M PRN PO DECREASED GLUCOSE; Start 10/15/16 at 21:30 Glucose (Glutose) 22.5 gm Q15M PRN PO DECREASED GLUCOSE; Start 10/15/16 at 21: 30 Dextrose (D50w Syringe) 25 ml Q15M PRN IV DECREASED GLUCOSE Last administered on 10/26/16 17:48; Admin Dose 25 ML; Start 10/15/16 at 21:30 Dextrose (D50w Syringe) 50 ml Q15M PRN IV DECREASED GLUCOSE; Start 10/15/16 at 21:30 Glucagon (Glucagen) 1 mg Q15M PRN IM DECREASED GLUCOSE; Start 10/15/16 at 21:30 Glucose (Glutose) 15 gm Q15M PRN BUCCAL DECREASED GLUCOSE; Start 10/15/16 at 21 :30 Metoclopramide HCl (Reglan) 10 mg Q6 IV Last administered on 11/06/16 13:02; Admin Dose 10 MG; Start 10/16/16 at 18:00 Lansoprazole (Prevacid) 30 mg BID@,18 GTB Last administered on 11/06/16 06: 10; Admin Dose 30 MG; Start 10/17/16 at 06:00 Carbidopa/Levodopa (Sinemet (25/ 100)) 1 tab TID GTB Last administered on 13:02; Admin Dose 1 TAB; Start 10/16/16 at 21:00 Lidocaine (Lidocaine 5% Oint) 1 applic TID TOP Last administered on 11/06/16 13:11; Admin Dose 1 APPLIC; Start 10/16/16 at 21:00 Metoprolol Tartrate (Lopressor) 12.5 mg BID GTB Last administered on 11/06/16 08:13; Admin Dose 12.5 MG; Start 10/16/16 at 21:00 Insulin Aspart (Novolog Insulin Pen) NOVOLOG *MILD* ALGORI... Q6 SC Last administered on 11/06/16 13:04; Admin Dose 1 UNIT; Start 10/24/16 at 18:00 Lactobacillus Acidoph/Bulgaricus (Floranex) 2 tab BID GTB Last administered on 11/06/16 08:11; Admin Dose 2 TAB; Start 10/24/16 at 21:00 Nystatin (Nystatin Susp) 5 ml QID GTB Last administered on 11/06/16 13:02; Admin Dose 5 ML; Start 10/24/16 at 21:00 Levetiracetam (Keppra) 1,000 mg BID PO Last administered on 11/06/16 08:12; Admin Dose 1,000 MG; Start 10/26/16 at 21:00 Insulin Glargine (Lantus) 10 unit DAILY@20 SC Last administered on 11/05/16 21: 00; Admin Dose 10 UNIT; Start 10/26/16 at 20:00 Demeclocycline HCl (Declomycin) 300 mg BID GTB Last administered on 11/06/16 08:12; Admin Dose 300 MG; Start 10/29/16 at 09:00 Potassium Chloride (Potassium Chloride Pwd/Soln) 40 meq DAILY GTB Last administered on 11/06/16 08:12; Admin Dose 40 MEQ; Start 10/31/16 at 09:00 Lactulose (Enulose) 30 gm TID GTB Last administered on 11/06/16 13:02; Admin Dose 30 GM; Start 11/04/16 at 21:00 ALTHEA ACOSTA Nov 06, 2016 17:56
[2016-11-06] MEDS: INSULIN GLARGINE [LANtus] 3 ML PEN SC SCH (20:26)
[2016-11-06] MEDS: ATORVASTATIN 40 MG TAB GTB SCH (21:16)
[2016-11-07] VITALS (21 sets, daily range): BP systolic 100–124; BP diastolic 59–68; PULSE 65–72; RESP 14–19
[2016-11-07] MEDS: METOCLOPRAMIDE 10 MG INJ IV SCH ×4 (00:38→18:02)
[2016-11-07] MEDS: INSULIN ASPART [NOVOLOG] 3 ML PEN SC SCH ×4 (00:53→18:00)
[2016-11-07] MEDS: LANSOPRAZOLE 30 MG CAP GTB SCH ×2 (05:11→18:02)
[2016-11-07 06:10] LABS: ADD SCAN DIFF NO
[2016-11-07 06:29] LABS: BASOPHIL # 0.1 10^3/ul (0.0-0.1); EOSINOPHILS # 0.2 10^3/ul (0.0-0.5); EOSINOPHILS % 2.8 % (0.0-7.0); HEMATOCRIT 27.2 % (42.0-52.0); HEMOGLOBIN 8.8 g/dl (14.0-18.0); LYMPHOCYTES # 0.8 10^3/ul (0.8-2.9); LYMPHOCYTES % 9.4 % (15.0-51.0); MEAN CORPUSCULAR HEMOGLOBIN 28.6 pg (29.0-33.0); MEAN CORPUSCULAR HGB CONC 32.4 g/dl (32.0-37.0); MEAN CORPUSCULAR VOLUME 88.3 fl (82.0-101.0); MEAN PLATELET VOLUME 8.9 fl (7.4-10.4); MONOCYTE # 0.9 10^3/ul (0.3-0.9); MONOCYTES % 11.7 % (0.0-11.0); NEUTROPHIL # 5.9 10^3/ul (1.6-7.5); NEUTROPHILS % 73.6 % (39.0-77.0); PLATELET COUNT 242 10^3/UL (140-415); POTASSIUM 4.1 mmol/L (3.5-5.1); RED BLOOD COUNT 3.08 10^6/ul (4.70-6.10); RED CELL DISTRIBUTION WIDTH 15.2 % (11.5-14.5)
[2016-11-07 06:31] LABS: CREATININE 0.3 mg/dl (0.61-1.24)
[2016-11-07 06:32] LABS: CALCIUM 7.7 mg/dl (8.4-10.2)
[2016-11-07] MEDS: LACTULOSE 30ML CUP GTB SCH ×3 (08:42→21:03)
[2016-11-07] MEDS: DEMECLOCYCLINE 150 MG TAB GTB SCH ×2 (08:42→21:04)
[2016-11-07] MEDS: POTASSIUM CHLORIDE 20 MEQ POWDER FOR ORAL SOLN GTB SCH (08:43)
[2016-11-07] MEDS: CARBIDOPA/LEVODOPA (25/100) TAB GTB SCH ×3 (08:43→21:04)
[2016-11-07] MEDS: LACTOBACILLUS CHEW TAB GTB SCH ×2 (08:43→21:04)
[2016-11-07] MEDS: NYSTATIN SUSP 5 ML CUP GTB SCH ×4 (08:43→21:04)
[2016-11-07] MEDS: FERROUS SULFATE 60 MG/ML 5ML CUP GTB SCH (08:43)
[2016-11-07] MEDS: MULTIVITAMINS THERAPEUTIC TAB PO SCH (08:44)
[2016-11-07] MEDS: METOPROLOL 25 MG TAB GTB SCH ×2 (08:44→21:13)
[2016-11-07] MEDS: LEVETIRACETAM 500 MG TAB PO SCH ×2 (08:44→21:04)
[2016-11-07] MEDS: BENAZEPRIL 10 MG TAB GTB SCH (08:44)
[2016-11-07] MEDS: LIDOCAINE 5% 35 GM OINT TOP SCH ×3 (08:48→21:05)
--- NOTE | 2016-11-07 12:24 | CONS ---
Date/Time of Note Date/Time of Note DATE: 11/07/16 TIME: 12:21 Assessment/Plan Assessment/Plan Additional Assessment/Plan 1. Severe hyponatremia with a sodium of 119 on admission with seizures, possibly acute on chronic hyponatremia versus acute severe hyponatremia.- pt went from hyponatremia to hypernatremia with treatment with 3% saline and one dose of tolvaptan - then Improved to normal today wtih D5W IVF and DDAVP 0.2mg PO x2 dose 10/15/16- on 10/16/16 again Na dropped to 119 s/p Tovlaptan 15 mg PO x1 on 10/18/16-now Na 143- decreased Demeclocycline to 150mg BID on 10/26/2016- again Na dropped to 120 on 10/30/2016- Now Na dropped to128- will give tolvaptan 15mg PO x 1 dose today 2. Seizures secondary to severe hyponatremia. 3. Sepsis secondary to bilateral pneumonia. 4. Ventilator-dependent respiratory failure, status post tracheostomy, on vent. 5. History of a previous brain tumor, had surgery. Currently, status post ventriculoperitoneal shunt in place. 6. History of a previous cerebellar cerebrovascular accident. PLAN: pt received 3 % saline and tolvaptan one dose on 10/10 and 10/11- went into polyuria, Na went from hyponatremia to hypernatremia- now improved to normal with D5W IVF and 2 dose of DDAVP 0.2mg- again today 10/16- na dropped from 140 to 122- given 3% hypertonic saline for another 12 hr - did not respond well, Na again dropped to 119- One dose of tolvaptan 15 mg X 1 10/18/16- Na dropped to 130 10/22/2016- tolvaptan 15 gram po x 1 dose on 09/21/16- now Na normal, - will decreased demeclocycline to 150mg BID on 10/26/16- Na dropped to 125 10/29/16- increased demeclocycline to 300mg PO BID on 10/29/2016- Na again dropped to 120- will give Tolvaptan 15 mg PO x 1 dose on 10/30/2016- Now Na dropped to128 on 07/16- will give tolvaptan 15mg PO x 1 dose 11/07/16 continue demeclocycline 300mg BID onTube feeding continue demeclocycline 300mg PO BID to avoid use of tolvaptan monitor Na, pt has acute on chronic hyponatremia ventilator care as per pulmonary will follow up Consultation Date/Type/Reason Admit Date/Time Oct 10, 2016 at 13:53 Initial Consult Date 10/10/16 Type of Consultation: NEPHROLOGY Reason for Consultation Severe Hyponatremia Referring Provider: MADDY HOPKINS MD 24 HR Interval Summary Free Text/Dictation Na dropped to 128 Exam/Review of Systems Vital Signs Vitals Vital Signs Date Time Temp Pulse Resp B/P Pulse Ox O2 Delivery O2 Flow Rate FiO2 11/07/16 11:15 67 14 100 30 11/07/16 07:27 98.3 124/61 Intake and Output 11/06/16 11/06/16 11/07/16 15:00 23:00 07:00 Intake Total 485 ml 360 ml 800 ml Output Total 350 ml 300 ml Balance 485 ml 10 ml 500 ml Exam HEENT: Tracheostomy site is clear. LUNGS: Bilateral coarse breath sounds with bilateral basilar rales present and lower lobe rhonchi present. HEART: S1, S2, tachycardia, no murmur. ABDOMEN: Soft. G-tube in place. EXTREMITIES: No clubbing, cyanosis, or edema. The patient is very debilitated. , + steve catheter in place Results Result Diagram: 11/07/16 0540 11/07/16 0540 Results 24 hrs Laboratory Tests Test 11/06/16 13:01 11/06/16 18:07 11/06/16 20:23 11/07/16 00:37 Bedside Glucose 144 144 124 152 Test 11/07/16 05:10 11/07/16 05:40 11/07/16 11:20 Bedside Glucose 113 134 Anion Gap 11 Basophils # 0.1 Basophils % 1.0 Blood Urea Nitrogen 11 Calcium Level 7.7 L Carbon Dioxide Level 25 Chloride Level 96 L Creatinine 0.30 L Eosinophils # 0.2 Eosinophils % 2.8 Glucose Level 98 Hematocrit 27.2 L Hemoglobin 8.8 L Lymphocytes # 0.8 Lymphocytes % 9.4 L Mean Corpuscular Hemoglobin 28.6 L Mean Corpuscular Hemoglobin Concent 32.4 Mean Corpuscular Volume 88.3 Mean Platelet Volume 8.9 Monocytes # 0.9 Monocytes % 11.7 H Neutrophils # 5.9 Neutrophils % 73.6 Nucleated Red Blood Cells # 0.0 Nucleated Red Blood Cells % 0.0 Platelet Count 242 Potassium Level 4.1 Red Blood Count 3.08 L Red Cell Distribution Width 15.2 H Sodium Level 128 L White Blood Count 8.0 Medications Medications Current Medications Ondansetron HCl (Zofran Inj) 4 mg Q6H PRN IV NAUSEA AND/OR VOMITING Last administered on 11/02/16 09:52; Admin Dose 4 MG; Start 10/10/16 at 14:00 Nitroglycerin (Nitroglycerin (Sl Tab) 0.4 Mg) 1 tab Q5M PRN SL CHEST PAIN; Start 10/10/16 at 14:00 Acetaminophen (Tylenol Supp) 650 mg Q4H PRN [place] PAIN LEVEL 1-3 OR FEVER Last administered on 10/30/16 14:05; Admin Dose 650 MG; Start 10/10/16 at 14:00 Morphine Sulfate (morphine) 2 mg Q4H PRN IV PAIN LEVEL 7-10 Last administered on 11/03/16 04:59; Admin Dose 2 MG; Start 10/10/16 at 14:00 Lorazepam (Ativan) 1 mg Q2H PRN IV ANXIETY Last administered on 10/15/16 20:27 ; Admin Dose 1 MG; Start 10/10/16 at 14:00 Docusate Sodium (Colace) 100 mg Q12H PRN PO CONSTIPATION; Start 10/10/16 at 14: 00 Hydralazine HCl (Apresoline) 10 mg Q6H PRN IV ELEVATED BLOOD PRESSURE Last administered on 10/29/16 23:43; Admin Dose 10 MG; Start 10/10/16 at 19:00 Atorvastatin Calcium (Lipitor) 40 mg QHS GTB Last administered on 11/06/16 21: 16; Admin Dose 40 MG; Start 10/15/16 at 21:00 Benazepril HCl (Lotensin) 10 mg DAILY GTB Last administered on 11/07/16 08:44 ; Admin Dose 10 MG; Start 10/15/16 at 12:00 Docusate Sodium (Colace Liquid Cup) 200 mg DAILY PRN GTB CONSTIPATION Last administered on 10/16/16 08:44; Admin Dose 200 MG; Start 10/15/16 at 12:00 Ferrous Sulfate (Feosol Liquid Cup) 330 mg DAILY GTB Last administered on 08:43; Admin Dose 330 MG; Start 10/16/16 at 09:00 Hydralazine HCl (Apresoline) 25 mg Q6H PRN GTB ELEVATED BLOOD PRESSURE Last administered on 10/27/16 12:46; Admin Dose 25 MG; Start 10/15/16 at 12:00 Mineral Oil (Fleet Mineral Oil Enema) 133 ml DAILY PRN [place] CONSTIPATION Last administered on 10/16/16 03:54; Admin Dose 133 ML; Start 10/15/16 at 12:00 Multivitamins Therapeutic (Theragran) 1 tab DAILY PO Last administered on 08:44; Admin Dose 1 TAB; Start 10/15/16 at 12:00 Miscellaneous Information 1 ea NOTE XX ; Start 10/15/16 at 21:30 Glucose (Glutose) 15 gm Q15M PRN PO DECREASED GLUCOSE; Start 10/15/16 at 21:30 Glucose (Glutose) 22.5 gm Q15M PRN PO DECREASED GLUCOSE; Start 10/15/16 at 21: 30 Dextrose (D50w Syringe) 25 ml Q15M PRN IV DECREASED GLUCOSE Last administered on 10/26/16 17:48; Admin Dose 25 ML; Start 10/15/16 at 21:30 Dextrose (D50w Syringe) 50 ml Q15M PRN IV DECREASED GLUCOSE; Start 10/15/16 at 21:30 Glucagon (Glucagen) 1 mg Q15M PRN IM DECREASED GLUCOSE; Start 10/15/16 at 21:30 Glucose (Glutose) 15 gm Q15M PRN BUCCAL DECREASED GLUCOSE; Start 10/15/16 at 21 :30 Metoclopramide HCl (Reglan) 10 mg Q6 IV Last administered on 11/07/16 11:32; Admin Dose 10 MG; Start 10/16/16 at 18:00 Lansoprazole (Prevacid) 30 mg BID@,18 GTB Last administered on 11/07/16 05: 11; Admin Dose 30 MG; Start 10/17/16 at 06:00 Carbidopa/Levodopa (Sinemet (25/ 100)) 1 tab TID GTB Last administered on 08:43; Admin Dose 1 TAB; Start 10/16/16 at 21:00 Lidocaine (Lidocaine 5% Oint) 1 applic TID TOP Last administered on 11/07/16 08:48; Admin Dose 1 APPLIC; Start 10/16/16 at 21:00 Metoprolol Tartrate (Lopressor) 12.5 mg BID GTB Last administered on 11/07/16 08:44; Admin Dose 12.5 MG; Start 10/16/16 at 21:00 Insulin Aspart (Novolog Insulin Pen) NOVOLOG *MILD* ALGORI... Q6 SC Last administered on 11/07/16 00:53; Admin Dose 1 UNIT; Start 10/24/16 at 18:00 Lactobacillus Acidoph/Bulgaricus (Floranex) 2 tab BID GTB Last administered on 11/07/16 08:43; Admin Dose 2 TAB; Start 10/24/16 at 21:00 Nystatin (Nystatin Susp) 5 ml QID GTB Last administered on 11/07/16 08:43; Admin Dose 5 ML; Start 10/24/16 at 21:00 Levetiracetam (Keppra) 1,000 mg BID PO Last administered on 11/07/16 08:44; Admin Dose 1,000 MG; Start 10/26/16 at 21:00 Insulin Glargine (Lantus) 10 unit DAILY@20 SC Last administered on 11/06/16 20 :26; Admin Dose 10 UNIT; Start 10/26/16 at 20:00 Demeclocycline HCl (Declomycin) 300 mg BID GTB Last administered on 11/07/16 08:42; Admin Dose 300 MG; Start 10/29/16 at 09:00 Potassium Chloride (Potassium Chloride Pwd/Soln) 40 meq DAILY GTB Last administered on 11/07/16 08:43; Admin Dose 40 MEQ; Start 10/31/16 at 09:00 Lactulose (Enulose) 30 gm TID GTB Last administered on 11/07/16 08:42; Admin Dose 30 GM; Start 11/04/16 at 21:00 LISSA PARK MD Nov 07, 2016 12:23
--- NOTE | 2016-11-07 12:47 | CONS ---
Date/Time of Note Date/Time of Note DATE: 11/07/16 TIME: 12:45 Assessment/Plan Assessment/Plan Additional Assessment/Plan Ventilator settings; AC of 14, tidal volume 500, PEEP of 5, 30% FiO2. Assessment recommendations; 1. Patient admitted for UTI with sepsis with interval resolution. Off antibiotics. 2. Chronic respiratory failure due to anoxic brain injury. Status post craniotomy. 3. Patient remains ventilator dependent. 4. Stable seizure disorder. 5. Stable hypertension or diabetes. 6. High you for neutropenia, with clinical improvement as well. Continue current treatment. Patient awaiting transfer to rehab facility. Consultation Date/Type/Reason Admit Date/Time Oct 10, 2016 at 13:53 Initial Consult Date 10/10/16 Type of Consultation: Pulmonary Referring Provider: MADDY HOPKINS MD 24 HR Interval Summary Free Text/Dictation Patient condition stable. Remains completely unresponsive. Has remained hemodynamically stable. No overt seizure activity noted. General exam; middle-aged man, on ventilator via tracheostomy currently in no distress. Unresponsive. Exam/Review of Systems Vital Signs Vitals Vital Signs Date Time Temp Pulse Resp B/P Pulse Ox O2 Delivery O2 Flow Rate FiO2 11/07/16 11:15 67 14 100 30 11/07/16 07:27 98.3 124/61 Intake and Output 11/06/16 11/06/16 11/07/16 15:00 23:00 07:00 Intake Total 485 ml 360 ml 800 ml Output Total 350 ml 300 ml Balance 485 ml 10 ml 500 ml Exam HEENT examination; supple neck, no JVD. No lymphadenopathy. Midline trachea. No thyromegaly. Tracheostomy in place. Insertion site is clean. There is a well-healed frontal scar. Chest examination; to auscultation bilaterally. S1-S2 audible, no murmurs. Regular rhythm. Abdomen examination; soft, nondistended. No organomegaly. Bowel sounds audible. G-tube in place. Extremity examination; no peripheral edema. SLAB PULLER examination; patient remains unresponsive. Results Result Diagram: 11/07/16 0540 11/07/16 0540 Results 24 hrs Laboratory Tests Test 11/06/16 13:01 11/06/16 18:07 11/06/16 20:23 11/07/16 00:37 Bedside Glucose 144 144 124 152 Test 11/07/16 05:10 11/07/16 05:40 11/07/16 11:20 Bedside Glucose 113 134 Anion Gap 11 Basophils # 0.1 Basophils % 1.0 Blood Urea Nitrogen 11 Calcium Level 7.7 L Carbon Dioxide Level 25 Chloride Level 96 L Creatinine 0.30 L Eosinophils # 0.2 Eosinophils % 2.8 Glucose Level 98 Hematocrit 27.2 L Hemoglobin 8.8 L Lymphocytes # 0.8 Lymphocytes % 9.4 L Mean Corpuscular Hemoglobin 28.6 L Mean Corpuscular Hemoglobin Concent 32.4 Mean Corpuscular Volume 88.3 Mean Platelet Volume 8.9 Monocytes # 0.9 Monocytes % 11.7 H Neutrophils # 5.9 Neutrophils % 73.6 Nucleated Red Blood Cells # 0.0 Nucleated Red Blood Cells % 0.0 Platelet Count 242 Potassium Level 4.1 Red Blood Count 3.08 L Red Cell Distribution Width 15.2 H Sodium Level 128 L White Blood Count 8.0 Medications Medications Current Medications Ondansetron HCl (Zofran Inj) 4 mg Q6H PRN IV NAUSEA AND/OR VOMITING Last administered on 11/02/16 09:52; Admin Dose 4 MG; Start 10/10/16 at 14:00 Nitroglycerin (Nitroglycerin (Sl Tab) 0.4 Mg) 1 tab Q5M PRN SL CHEST PAIN; Start 10/10/16 at 14:00 Acetaminophen (Tylenol Supp) 650 mg Q4H PRN [place] PAIN LEVEL 1-3 OR FEVER Last administered on 10/30/16 14:05; Admin Dose 650 MG; Start 10/10/16 at 14:00 Morphine Sulfate (morphine) 2 mg Q4H PRN IV PAIN LEVEL 7-10 Last administered on 11/03/16 04:59; Admin Dose 2 MG; Start 10/10/16 at 14:00 Lorazepam (Ativan) 1 mg Q2H PRN IV ANXIETY Last administered on 10/15/16 20:27 ; Admin Dose 1 MG; Start 10/10/16 at 14:00 Docusate Sodium (Colace) 100 mg Q12H PRN PO CONSTIPATION; Start 10/10/16 at 14: 00 Hydralazine HCl (Apresoline) 10 mg Q6H PRN IV ELEVATED BLOOD PRESSURE Last administered on 10/29/16 23:43; Admin Dose 10 MG; Start 10/10/16 at 19:00 Atorvastatin Calcium (Lipitor) 40 mg QHS GTB Last administered on 11/06/16 21: 16; Admin Dose 40 MG; Start 10/15/16 at 21:00 Benazepril HCl (Lotensin) 10 mg DAILY GTB Last administered on 11/07/16 08:44 ; Admin Dose 10 MG; Start 10/15/16 at 12:00 Docusate Sodium (Colace Liquid Cup) 200 mg DAILY PRN GTB CONSTIPATION Last administered on 10/16/16 08:44; Admin Dose 200 MG; Start 10/15/16 at 12:00 Ferrous Sulfate (Feosol Liquid Cup) 330 mg DAILY GTB Last administered on 08:43; Admin Dose 330 MG; Start 10/16/16 at 09:00 Hydralazine HCl (Apresoline) 25 mg Q6H PRN GTB ELEVATED BLOOD PRESSURE Last administered on 10/27/16 12:46; Admin Dose 25 MG; Start 10/15/16 at 12:00 Mineral Oil (Fleet Mineral Oil Enema) 133 ml DAILY PRN [place] CONSTIPATION Last administered on 10/16/16 03:54; Admin Dose 133 ML; Start 10/15/16 at 12:00 Multivitamins Therapeutic (Theragran) 1 tab DAILY PO Last administered on 08:44; Admin Dose 1 TAB; Start 10/15/16 at 12:00 Miscellaneous Information 1 ea NOTE XX ; Start 10/15/16 at 21:30 Glucose (Glutose) 15 gm Q15M PRN PO DECREASED GLUCOSE; Start 10/15/16 at 21:30 Glucose (Glutose) 22.5 gm Q15M PRN PO DECREASED GLUCOSE; Start 10/15/16 at 21: 30 Dextrose (D50w Syringe) 25 ml Q15M PRN IV DECREASED GLUCOSE Last administered on 10/26/16 17:48; Admin Dose 25 ML; Start 10/15/16 at 21:30 Dextrose (D50w Syringe) 50 ml Q15M PRN IV DECREASED GLUCOSE; Start 10/15/16 at 21:30 Glucagon (Glucagen) 1 mg Q15M PRN IM DECREASED GLUCOSE; Start 10/15/16 at 21:30 Glucose (Glutose) 15 gm Q15M PRN BUCCAL DECREASED GLUCOSE; Start 10/15/16 at 21 :30 Metoclopramide HCl (Reglan) 10 mg Q6 IV Last administered on 11/07/16 11:32; Admin Dose 10 MG; Start 10/16/16 at 18:00 Lansoprazole (Prevacid) 30 mg BID@06,18 GTB Last administered on 11/07/16 05: 11; Admin Dose 30 MG; Start 10/17/16 at 06:00 Carbidopa/Levodopa (Sinemet (25/ 100)) 1 tab TID GTB Last administered on 08:43; Admin Dose 1 TAB; Start 10/16/16 at 21:00 Lidocaine (Lidocaine 5% Oint) 1 applic TID TOP Last administered on 11/07/16 08:48; Admin Dose 1 APPLIC; Start 10/16/16 at 21:00 Metoprolol Tartrate (Lopressor) 12.5 mg BID GTB Last administered on 11/07/16 08:44; Admin Dose 12.5 MG; Start 10/16/16 at 21:00 Insulin Aspart (Novolog Insulin Pen) NOVOLOG *MILD* ALGORI... Q6 SC Last administered on 11/07/16 00:53; Admin Dose 1 UNIT; Start 10/24/16 at 18:00 Lactobacillus Acidoph/Bulgaricus (Floranex) 2 tab BID GTB Last administered on 11/07/16 08:43; Admin Dose 2 TAB; Start 10/24/16 at 21:00 Nystatin (Nystatin Susp) 5 ml QID GTB Last administered on 11/07/16 08:43; Admin Dose 5 ML; Start 10/24/16 at 21:00 Levetiracetam (Keppra) 1,000 mg BID PO Last administered on 11/07/16 08:44; Admin Dose 1,000 MG; Start 10/26/16 at 21:00 Insulin Glargine (Lantus) 10 unit DAILY@20 SC Last administered on 11/06/16 20 :26; Admin Dose 10 UNIT; Start 10/26/16 at 20:00 Demeclocycline HCl (Declomycin) 300 mg BID GTB Last administered on 11/07/16 08:42; Admin Dose 300 MG; Start 10/29/16 at 09:00 Potassium Chloride (Potassium Chloride Pwd/Soln) 40 meq DAILY GTB Last administered on 11/07/16 08:43; Admin Dose 40 MEQ; Start 10/31/16 at 09:00 Lactulose (Enulose) 30 gm TID GTB Last administered on 11/07/16 08:42; Admin Dose 30 GM; Start 11/04/16 at 21:00 Tolvaptan (Samsca) 15 mg ONCE ONCE PO ; Start 11/07/16 at 13:30; Stop 11/07/16 at 13:31 JUANA DE LEÓN Nov 07, 2016 12:47
[2016-11-07 13:10] LABS: SODIUM 130 mmol/L (135-144)
[2016-11-07 13:13] LABS: ALANINE AMINOTRANSFERASE 24 IU/L (13-69); ASPARTATE AMINO TRANSFERASE 40 IU/L (15-46)
[2016-11-07] MEDS ORDERED: TOLVAPTAN 15 MG TABLET PO ONE (13:30)
--- NOTE | 2016-11-07 13:41 | PN ---
Date/Time of Note Date/Time of Note DATE: 11/07/16 TIME: 13:39 Assessment/Plan VTE Prophylaxis VTE Prophylaxis Intervention: SCD's Lines/Catheters IV C[facility] Type [facility]from [facility] Saline [facility] Urinary Cath still in place: Yes Assessment/Plan Assessment/Plan 1. Urinary tract infection per UA. Continue Vfend. 2. Systemic inflammatory response syndrome secondary to urinary tract infection. Dr. Sales is following an infection disease consultation. 3. Anemia of possible gastrointestinal bleed. Stool for occult blood is positive. Dr. Mas is following the patient in gastroenterology consultation. Continue to monitor hemoglobin and hematocrit. Status post EGD today with notion of gastritis, continue Protonix. 4 Chronic respiratory failure. Continue patient on ventilatory support. Continue pulmonary toilet and bronchodilators. Dr. Clarke will be following the patient from pulmonology standpoint. 5. Dysphagia with G-tube. 6. Hypertension. Continue patient on Lotensin, Norvasc and metoprolol. 7. Parkinson's disease. Continue Sinemet. 8. Cervical myelopathy, status post cervical spine and upper thoracic spine surgery by Dr. Sprague. 9. Neck cystic mass, status post conservative treatment. Dr. Sprague, neurosurgery consultation is appreciated. No drainage is recommended at this time. 10. Left-sided quadriparesis secondary to a cervical and thoracic stenosis. Continue to assist patient with activities of daily living. 11. Hypornatremia continue IV fluids 12. Hypokalemia- resolved Continue sequential compression devices for deep venous thrombosis prophylaxis and Prevacid for peptic ulcer disease prophylaxis. Further recommendations based on clinical course. Plan of care discussed with Dr. Desir. Subjective 24 Hr Interval Summary Free Text/Dictation nad, family at bed side, tolerates tube feedings.no new issues reported by staff Constitutional: requiring IVF, requiring O2 Exam/Review of Systems Vital Signs Vitals Vital Signs Date Time Temp Pulse Resp B/P Pulse Ox O2 Delivery O2 Flow Rate FiO2 11/07/16 12:18 65 11/07/16 11:15 14 100 30 11/07/16 07:27 98.3 124/61 Intake and Output 11/06/16 11/06/16 11/07/16 15:00 23:00 07:00 Intake Total 485 ml 360 ml 800 ml Output Total 350 ml 300 ml Balance 485 ml 10 ml 500 ml Exam Constitutional: non-verbal Eyes: nl sclera ENMT: nl external ears & nose Respiratory: diminished breath sounds Cardiovascular: nl pulses Gastrointestinal: non-tender, other, soft Musculoskeletal: muscle weakness Neurological: unresponsive Lymph: nontender Results Result Diagram: 11/07/16 0540 11/07/16 1250 Results 24 hrs Laboratory Tests Test 11/06/16 18:07 11/06/16 20:23 11/07/16 00:37 11/07/16 05:10 Bedside Glucose 144 124 152 113 Test 11/07/16 05:40 11/07/16 11:20 11/07/16 12:50 Anion Gap 11 Basophils # 0.1 Basophils % 1.0 Blood Urea Nitrogen 11 Calcium Level 7.7 L Carbon Dioxide Level 25 Chloride Level 96 L Creatinine 0.30 L Eosinophils # 0.2 Eosinophils % 2.8 Glucose Level 98 Hematocrit 27.2 L Hemoglobin 8.8 L Lymphocytes # 0.8 Lymphocytes % 9.4 L Mean Corpuscular Hemoglobin 28.6 L Mean Corpuscular Hemoglobin Concent 32.4 Mean Corpuscular Volume 88.3 Mean Platelet Volume 8.9 Monocytes # 0.9 Monocytes % 11.7 H Neutrophils # 5.9 Neutrophils % 73.6 Nucleated Red Blood Cells # 0.0 Nucleated Red Blood Cells % 0.0 Platelet Count 242 Potassium Level 4.1 Red Blood Count 3.08 L Red Cell Distribution Width 15.2 H Sodium Level 128 L 130 L White Blood Count 8.0 Bedside Glucose 134 Alanine Aminotransferase (ALT/SGPT) 24 Aspartate Amino Transf (AST/SGOT) 40 Medications Medications Current Medications Ondansetron HCl (Zofran Inj) 4 mg Q6H PRN IV NAUSEA AND/OR VOMITING Last administered on 11/02/16 09:52; Admin Dose 4 MG; Start 10/10/16 at 14:00 Nitroglycerin (Nitroglycerin (Sl Tab) 0.4 Mg) 1 tab Q5M PRN SL CHEST PAIN; Start 10/10/16 at 14:00 Acetaminophen (Tylenol Supp) 650 mg Q4H PRN OR PAIN LEVEL 1-3 OR FEVER Last administered on 10/30/16 14:05; Admin Dose 650 MG; Start 10/10/16 at 14:00 Morphine Sulfate (morphine) 2 mg Q4H PRN IV PAIN LEVEL 7-10 Last administered on 11/03/16 04:59; Admin Dose 2 MG; Start 10/10/16 at 14:00 Lorazepam (Ativan) 1 mg Q2H PRN IV ANXIETY Last administered on 10/15/16 20:27 ; Admin Dose 1 MG; Start 10/10/16 at 14:00 Docusate Sodium (Colace) 100 mg Q12H PRN PO CONSTIPATION; Start 10/10/16 at 14: 00 Hydralazine HCl (Apresoline) 10 mg Q6H PRN IV ELEVATED BLOOD PRESSURE Last administered on 10/29/16 23:43; Admin Dose 10 MG; Start 10/10/16 at 19:00 Atorvastatin Calcium (Lipitor) 40 mg QHS GTB Last administered on 11/06/16 21: 16; Admin Dose 40 MG; Start 10/15/16 at 21:00 Benazepril HCl (Lotensin) 10 mg DAILY GTB Last administered on 11/07/16 08:44 ; Admin Dose 10 MG; Start 10/15/16 at 12:00 Docusate Sodium (Colace Liquid Cup) 200 mg DAILY PRN GTB CONSTIPATION Last administered on 10/16/16 08:44; Admin Dose 200 MG; Start 10/15/16 at 12:00 Ferrous Sulfate (Feosol Liquid Cup) 330 mg DAILY GTB Last administered on 08:43; Admin Dose 330 MG; Start 10/16/16 at 09:00 Hydralazine HCl (Apresoline) 25 mg Q6H PRN GTB ELEVATED BLOOD PRESSURE Last administered on 10/27/16 12:46; Admin Dose 25 MG; Start 10/15/16 at 12:00 Mineral Oil (Fleet Mineral Oil Enema) 133 ml DAILY PRN OR CONSTIPATION Last administered on 10/16/16 03:54; Admin Dose 133 ML; Start 10/15/16 at 12:00 Multivitamins Therapeutic (Theragran) 1 tab DAILY PO Last administered on 08:44; Admin Dose 1 TAB; Start 10/15/16 at 12:00 Miscellaneous Information 1 ea NOTE XX ; Start 10/15/16 at 21:30 Glucose (Glutose) 15 gm Q15M PRN PO DECREASED GLUCOSE; Start 10/15/16 at 21:30 Glucose (Glutose) 22.5 gm Q15M PRN PO DECREASED GLUCOSE; Start 10/15/16 at 21: 30 Dextrose (D50w Syringe) 25 ml Q15M PRN IV DECREASED GLUCOSE Last administered on 10/26/16 17:48; Admin Dose 25 ML; Start 10/15/16 at 21:30 Dextrose (D50w Syringe) 50 ml Q15M PRN IV DECREASED GLUCOSE; Start 10/15/16 at 21:30 Glucagon (Glucagen) 1 mg Q15M PRN IM DECREASED GLUCOSE; Start 10/15/16 at 21:30 Glucose (Glutose) 15 gm Q15M PRN BUCCAL DECREASED GLUCOSE; Start 10/15/16 at 21 :30 Metoclopramide HCl (Reglan) 10 mg Q6 IV Last administered on 11/07/16 11:32; Admin Dose 10 MG; Start 10/16/16 at 18:00 Lansoprazole (Prevacid) 30 mg BID@,18 GTB Last administered on 11/07/16 05: 11; Admin Dose 30 MG; Start 10/17/16 at 06:00 Carbidopa/Levodopa (Sinemet (25/ 100)) 1 tab TID GTB Last administered on 13:12; Admin Dose 1 TAB; Start 10/16/16 at 21:00 Lidocaine (Lidocaine 5% Oint) 1 applic TID TOP Last administered on 11/07/16 13:12; Admin Dose 1 APPLIC; Start 10/16/16 at 21:00 Metoprolol Tartrate (Lopressor) 12.5 mg BID GTB Last administered on 11/07/16 08:44; Admin Dose 12.5 MG; Start 10/16/16 at 21:00 Insulin Aspart (Novolog Insulin Pen) NOVOLOG *MILD* ALGORI... Q6 SC Last administered on 11/07/16 00:53; Admin Dose 1 UNIT; Start 10/24/16 at 18:00 Lactobacillus Acidoph/Bulgaricus (Floranex) 2 tab BID GTB Last administered on 11/07/16 08:43; Admin Dose 2 TAB; Start 10/24/16 at 21:00 Nystatin (Nystatin Susp) 5 ml QID GTB Last administered on 11/07/16 13:12; Admin Dose 5 ML; Start 10/24/16 at 21:00 Levetiracetam (Keppra) 1,000 mg BID PO Last administered on 11/07/16 08:44; Admin Dose 1,000 MG; Start 10/26/16 at 21:00 Insulin Glargine (Lantus) 10 unit DAILY@20 SC Last administered on 11/06/16 20 :26; Admin Dose 10 UNIT; Start 10/26/16 at 20:00 Demeclocycline HCl (Declomycin) 300 mg BID GTB Last administered on 11/07/16 08:42; Admin Dose 300 MG; Start 10/29/16 at 09:00 Potassium Chloride (Potassium Chloride Pwd/Soln) 40 meq DAILY GTB Last administered on 11/07/16 08:43; Admin Dose 40 MEQ; Start 10/31/16 at 09:00 Lactulose (Enulose) 30 gm TID GTB Last administered on 11/07/16 13:11; Admin Dose 30 GM; Start 11/04/16 at 21:00 KENYATTA CAPPS Nov 07, 2016 13:41
[2016-11-07] MEDS: ATORVASTATIN 40 MG TAB GTB SCH (21:04)
[2016-11-07] MEDS: INSULIN GLARGINE [LANtus] 3 ML PEN SC SCH (21:17)
[2016-11-08] VITALS (25 sets, daily range): BP systolic 91–129; BP diastolic 56–75; PULSE 74–90; RESP 14–19
[2016-11-08] MEDS: METOCLOPRAMIDE 10 MG INJ IV SCH ×4 (00:12→17:22)
[2016-11-08] MEDS: INSULIN ASPART [NOVOLOG] 3 ML PEN SC SCH ×4 (00:20→17:22)
[2016-11-08] MEDS: LANSOPRAZOLE 30 MG CAP GTB SCH ×2 (05:50→17:22)
[2016-11-08] MEDS: FERROUS SULFATE 60 MG/ML 5ML CUP GTB SCH (09:13)
[2016-11-08] MEDS: LACTULOSE 30ML CUP GTB SCH ×3 (09:13→21:04)
[2016-11-08] MEDS: LACTOBACILLUS CHEW TAB GTB SCH ×2 (09:14→21:04)
[2016-11-08] MEDS: LEVETIRACETAM 500 MG TAB PO SCH ×2 (09:14→21:04)
[2016-11-08] MEDS: DEMECLOCYCLINE 150 MG TAB GTB SCH ×2 (09:14→21:04)
[2016-11-08] MEDS: NYSTATIN SUSP 5 ML CUP GTB SCH ×4 (09:14→21:04)
[2016-11-08] MEDS: MULTIVITAMINS THERAPEUTIC TAB PO SCH (09:14)
[2016-11-08] MEDS: POTASSIUM CHLORIDE 20 MEQ POWDER FOR ORAL SOLN GTB SCH (09:14)
[2016-11-08] MEDS: CARBIDOPA/LEVODOPA (25/100) TAB GTB SCH ×3 (09:14→21:04)
[2016-11-08] MEDS: METOPROLOL 25 MG TAB GTB SCH ×2 (09:15→21:00)
[2016-11-08] MEDS: BENAZEPRIL 10 MG TAB GTB SCH (09:21)
[2016-11-08] MEDS: LIDOCAINE 5% 35 GM OINT TOP SCH ×3 (09:26→21:04)
--- NOTE | 2016-11-08 14:18 | CONS ---
Date/Time of Note Date/Time of Note DATE: 11/08/16 TIME: 14:15 Assessment/Plan Assessment/Plan Additional Assessment/Plan Ventilator settings; AC of 14, tidal volume 500, PEEP of 5, 30% FiO2. Assessment recommendations; 1. Patient admitted for UTI and sepsis that interval improvement. Off antibiotics. 2. Chronic respiratory failure, status post intracerebral bleed status post craniotomy. Severe anoxic brain injury. 3. Chronic respiratory failure. Patient ventilator dependent. 4. Stable seizure disorder. 5. Hypernatremia, with interval improvement. 6. History of hypertension, diabetes. Continue current treatment. Patient awaiting discharge. Consultation Date/Type/Reason Admit Date/Time Oct 10, 2016 at 13:53 Initial Consult Date 10/10/16 Type of Consultation: Pulmonary Referring Provider: MADDY HOPKINS MD 24 HR Interval Summary Free Text/Dictation Patient condition remains stable. Has remained hemodynamically stable. No overt seizure activity noted. General exam; middle-aged man, on ventilator via tracheostomy currently in no distress. Patient remains completely unresponsive. Exam/Review of Systems Vital Signs Vitals Vital Signs Date Time Temp Pulse Resp B/P Pulse Ox O2 Delivery O2 Flow Rate FiO2 11/08/16 13:15 74 14 98 30 11/08/16 11:31 98.6 111/66 Intake and Output 11/07/16 11/07/16 11/08/16 15:00 23:00 07:00 Intake Total 800 ml 850 ml Output Total 850 ml 1800 ml Balance -50 ml -950 ml Exam H EENT examination; supple neck, no JVD. No lymphadenopathy. Midline trachea. No thyromegaly. Tracheostomy in place with clean insertion site. There is a well-healed ventral scar. Chest examination; diminished but clear breath sounds bilaterally. No added sound. S1-S2 audible, no murmurs. Regular rhythm. Abdomen exam is; soft, nondistended. No organomegaly. Bowel is audible. G- tube in place. Extremity examination; no peripheral edema. Pulses 1+ bilaterally. GUN STOCKER examination; patient remains unresponsive. Results Result Diagram: 11/07/16 0540 11/08/16 0542 Results 24 hrs Laboratory Tests Test 11/07/16 17:34 11/07/16 20:25 11/07/16 21:07 11/08/16 00:14 Bedside Glucose 122 150 158 Sodium Level 137 Test 11/08/16 05:42 11/08/16 05:49 11/08/16 11:48 Sodium Level 140 Bedside Glucose 151 147 Medications Medications Current Medications Ondansetron HCl (Zofran Inj) 4 mg Q6H PRN IV NAUSEA AND/OR VOMITING Last administered on 11/02/16 09:52; Admin Dose 4 MG; Start 10/10/16 at 14:00 Nitroglycerin (Nitroglycerin (Sl Tab) 0.4 Mg) 1 tab Q5M PRN SL CHEST PAIN; Start 10/10/16 at 14:00 Acetaminophen (Tylenol Supp) 650 mg Q4H PRN [place] PAIN LEVEL 1-3 OR FEVER Last administered on 10/30/16 14:05; Admin Dose 650 MG; Start 10/10/16 at 14:00 Morphine Sulfate (morphine) 2 mg Q4H PRN IV PAIN LEVEL 7-10 Last administered on 11/03/16 04:59; Admin Dose 2 MG; Start 10/10/16 at 14:00 Lorazepam (Ativan) 1 mg Q2H PRN IV ANXIETY Last administered on 10/15/16 20:27 ; Admin Dose 1 MG; Start 10/10/16 at 14:00 Docusate Sodium (Colace) 100 mg Q12H PRN PO CONSTIPATION; Start 10/10/16 at 14: 00 Hydralazine HCl (Apresoline) 10 mg Q6H PRN IV ELEVATED BLOOD PRESSURE Last administered on 10/29/16 23:43; Admin Dose 10 MG; Start 10/10/16 at 19:00 Atorvastatin Calcium (Lipitor) 40 mg QHS GTB Last administered on 11/07/16 21: 04; Admin Dose 40 MG; Start 10/15/16 at 21:00 Benazepril HCl (Lotensin) 10 mg DAILY GTB Last administered on 11/08/16 09:21 ; Admin Dose 10 MG; Start 10/15/16 at 12:00 Docusate Sodium (Colace Liquid Cup) 200 mg DAILY PRN GTB CONSTIPATION Last administered on 10/16/16 08:44; Admin Dose 200 MG; Start 10/15/16 at 12:00 Ferrous Sulfate (Feosol Liquid Cup) 330 mg DAILY GTB Last administered on 09:13; Admin Dose 330 MG; Start 10/16/16 at 09:00 Hydralazine HCl (Apresoline) 25 mg Q6H PRN GTB ELEVATED BLOOD PRESSURE Last administered on 10/27/16 12:46; Admin Dose 25 MG; Start 10/15/16 at 12:00 Mineral Oil (Fleet Mineral Oil Enema) 133 ml DAILY PRN [place] CONSTIPATION Last administered on 10/16/16 03:54; Admin Dose 133 ML; Start 10/15/16 at 12:00 Multivitamins Therapeutic (Theragran) 1 tab DAILY PO Last administered on 09:14; Admin Dose 1 TAB; Start 10/15/16 at 12:00 Miscellaneous Information 1 ea NOTE XX ; Start 10/15/16 at 21:30 Glucose (Glutose) 15 gm Q15M PRN PO DECREASED GLUCOSE; Start 10/15/16 at 21:30 Glucose (Glutose) 22.5 gm Q15M PRN PO DECREASED GLUCOSE; Start 10/15/16 at 21: 30 Dextrose (D50w Syringe) 25 ml Q15M PRN IV DECREASED GLUCOSE Last administered on 10/26/16 17:48; Admin Dose 25 ML; Start 10/15/16 at 21:30 Dextrose (D50w Syringe) 50 ml Q15M PRN IV DECREASED GLUCOSE; Start 10/15/16 at 21:30 Glucagon (Glucagen) 1 mg Q15M PRN IM DECREASED GLUCOSE; Start 10/15/16 at 21:30 Glucose (Glutose) 15 gm Q15M PRN BUCCAL DECREASED GLUCOSE; Start 10/15/16 at 21 :30 Metoclopramide HCl (Reglan) 10 mg Q6 IV Last administered on 11/08/16 12:09; Admin Dose 10 MG; Start 10/16/16 at 18:00 Lansoprazole (Prevacid) 30 mg BID@ GTB Last administered on 11/08/16 05: 50; Admin Dose 30 MG; Start 10/17/16 at 06:00 Carbidopa/Levodopa (Sinemet (25/ 100)) 1 tab TID GTB Last administered on 12:09; Admin Dose 1 TAB; Start 10/16/16 at 21:00 Lidocaine (Lidocaine 5% Oint) 1 applic TID TOP Last administered on 11/08/16 12:09; Admin Dose 1 APPLIC; Start 10/16/16 at 21:00 Metoprolol Tartrate (Lopressor) 12.5 mg BID GTB Last administered on 11/08/16 09:15; Admin Dose 12.5 MG; Start 10/16/16 at 21:00 Insulin Aspart (Novolog Insulin Pen) NOVOLOG *MILD* ALGORI... Q6 SC Last administered on 11/08/16 12:10; Admin Dose 1 UNIT; Start 10/24/16 at 18:00 Lactobacillus Acidoph/Bulgaricus (Floranex) 2 tab BID GTB Last administered on 11/08/16 09:14; Admin Dose 2 TAB; Start 10/24/16 at 21:00 Nystatin (Nystatin Susp) 5 ml QID GTB Last administered on 11/08/16 12:09; Admin Dose 5 ML; Start 10/24/16 at 21:00 Levetiracetam (Keppra) 1,000 mg BID PO Last administered on 11/08/16 09:14; Admin Dose 1,000 MG; Start 10/26/16 at 21:00 Insulin Glargine (Lantus) 10 unit DAILY@20 SC Last administered on 11/07/16 21 :17; Admin Dose 10 UNIT; Start 10/26/16 at 20:00 Demeclocycline HCl (Declomycin) 300 mg BID GTB Last administered on 11/08/16 09:14; Admin Dose 300 MG; Start 10/29/16 at 09:00 Potassium Chloride (Potassium Chloride Pwd/Soln) 40 meq DAILY GTB Last administered on 11/08/16 09:14; Admin Dose 40 MEQ; Start 10/31/16 at 09:00 Lactulose (Enulose) 30 gm TID GTB Last administered on 11/08/16 12:09; Admin Dose 30 GM; Start 11/04/16 at 21:00 JUANA DE LEÓN 12, 2017 14:17
--- NOTE | 2016-11-08 15:28 | PN ---
Date/Time of Note Date/Time of Note DATE: 11/08/16 TIME: 15:26 Assessment/Plan VTE Prophylaxis VTE Prophylaxis Intervention: other Lines/Catheters IV [facility] Type (from [facility] Urinary Cath still in place: Yes Assessment/Plan Assessment/Plan 1. Urinary tract infection per UA. Continue Vfend. 2. Systemic inflammatory response syndrome secondary to urinary tract infection. Dr. Sales is following an infection disease consultation. 3. Anemia of possible gastrointestinal bleed. Stool for occult blood is positive. Dr. Mas is following the patient in gastroenterology consultation. Continue to monitor hemoglobin and hematocrit. Status post EGD today with notion of gastritis, continue Protonix. 4 Chronic respiratory failure. Continue patient on ventilatory support. Continue pulmonary toilet and bronchodilators. Dr. Clarke will be following the patient from pulmonology standpoint. 5. Dysphagia with G-tube. 6. Hypertension. Continue patient on Lotensin, Norvasc and metoprolol. 7. Parkinson's disease. Continue Sinemet. 8. Cervical myelopathy, status post cervical spine and upper thoracic spine surgery by Dr. Sprague. 9. Neck cystic mass, status post conservative treatment. Dr. Sprague, neurosurgery consultation is appreciated. No drainage is recommended at this time. 10. Left-sided quadriparesis secondary to a cervical and thoracic stenosis. Continue to assist patient with activities of daily living. 11. Hypornatremia continue IV fluids 12. Hypokalemia- resolved Continue sequential compression devices for deep venous thrombosis prophylaxis and Prevacid for peptic ulcer disease prophylaxis. Further recommendations based on clinical course. Plan of care discussed with Dr. Desir. Exam/Review of Systems Vital Signs Vitals Vital Signs Date Time Temp Pulse Resp B/P Pulse Ox O2 Delivery O2 Flow Rate FiO2 11/08/16 13:15 74 14 98 30 11/08/16 11:31 98.6 111/66 Intake and Output 11/07/16 11/07/16 11/08/16 15:00 23:00 07:00 Intake Total 800 ml 850 ml Output Total 850 ml 1800 ml Balance -50 ml -950 ml Exam Constitutional: non-verbal Eyes: nl sclera Respiratory: diminished breath sounds Cardiovascular: nl pulses Gastrointestinal: non-tender, soft Musculoskeletal: muscle weakness Extremities: normal pulses Neurological: unresponsive Lymph: nontender Results Result Diagram: 11/07/16 0540 11/08/16 0542 Results 24 hrs Laboratory Tests Test 11/07/16 17:34 11/07/16 20:25 11/07/16 21:07 11/08/16 00:14 Bedside Glucose 122 150 158 Sodium Level 137 Test 11/08/16 05:42 11/08/16 05:49 11/08/16 11:48 Sodium Level 140 Bedside Glucose 151 147 Medications Medications Current Medications Ondansetron HCl (Zofran Inj) 4 mg Q6H PRN IV NAUSEA AND/OR VOMITING Last administered on 11/02/16 09:52; Admin Dose 4 MG; Start 10/10/16 at 14:00 Nitroglycerin (Nitroglycerin (Sl Tab) 0.4 Mg) 1 tab Q5M PRN SL CHEST PAIN; Start 10/10/16 at 14:00 Acetaminophen (Tylenol Supp) 650 mg Q4H PRN [place] PAIN LEVEL 1-3 OR FEVER Last administered on 10/30/16 14:05; Admin Dose 650 MG; Start 10/10/16 at 14:00 Morphine Sulfate (morphine) 2 mg Q4H PRN IV PAIN LEVEL 7-10 Last administered on 11/03/16 04:59; Admin Dose 2 MG; Start 10/10/16 at 14:00 Lorazepam (Ativan) 1 mg Q2H PRN IV ANXIETY Last administered on 10/15/16 20:27 ; Admin Dose 1 MG; Start 10/10/16 at 14:00 Docusate Sodium (Colace) 100 mg Q12H PRN PO CONSTIPATION; Start 10/10/16 at 14: 00 Hydralazine HCl (Apresoline) 10 mg Q6H PRN IV ELEVATED BLOOD PRESSURE Last administered on 10/29/16 23:43; Admin Dose 10 MG; Start 10/10/16 at 19:00 Atorvastatin Calcium (Lipitor) 40 mg QHS GTB Last administered on 11/07/16 21: 04; Admin Dose 40 MG; Start 10/15/16 at 21:00 Benazepril HCl (Lotensin) 10 mg DAILY GTB Last administered on 11/08/16 09:21 ; Admin Dose 10 MG; Start 10/15/16 at 12:00 Docusate Sodium (Colace Liquid Cup) 200 mg DAILY PRN GTB CONSTIPATION Last administered on 10/16/16 08:44; Admin Dose 200 MG; Start 10/15/16 at 12:00 Ferrous Sulfate (Feosol Liquid Cup) 330 mg DAILY GTB Last administered on 09:13; Admin Dose 330 MG; Start 10/16/16 at 09:00 Hydralazine HCl (Apresoline) 25 mg Q6H PRN GTB ELEVATED BLOOD PRESSURE Last administered on 10/27/16 12:46; Admin Dose 25 MG; Start 10/15/16 at 12:00 Mineral Oil (Fleet Mineral Oil Enema) 133 ml DAILY PRN [place] CONSTIPATION Last administered on 10/16/16 03:54; Admin Dose 133 ML; Start 10/15/16 at 12:00 Multivitamins Therapeutic (Theragran) 1 tab DAILY PO Last administered on 09:14; Admin Dose 1 TAB; Start 10/15/16 at 12:00 Miscellaneous Information 1 ea NOTE XX ; Start 10/15/16 at 21:30 Glucose (Glutose) 15 gm Q15M PRN PO DECREASED GLUCOSE; Start 10/15/16 at 21:30 Glucose (Glutose) 22.5 gm Q15M PRN PO DECREASED GLUCOSE; Start 10/15/16 at 21: 30 Dextrose (D50w Syringe) 25 ml Q15M PRN IV DECREASED GLUCOSE Last administered on 10/26/16 17:48; Admin Dose 25 ML; Start 10/15/16 at 21:30 Dextrose (D50w Syringe) 50 ml Q15M PRN IV DECREASED GLUCOSE; Start 10/15/16 at 21:30 Glucagon (Glucagen) 1 mg Q15M PRN IM DECREASED GLUCOSE; Start 10/15/16 at 21:30 Glucose (Glutose) 15 gm Q15M PRN BUCCAL DECREASED GLUCOSE; Start 10/15/16 at 21 :30 Metoclopramide HCl (Reglan) 10 mg Q6 IV Last administered on 11/08/16 12:09; Admin Dose 10 MG; Start 10/16/16 at 18:00 Lansoprazole (Prevacid) 30 mg BID@ GTB Last administered on 11/08/16 05: 50; Admin Dose 30 MG; Start 10/17/16 at 06:00 Carbidopa/Levodopa (Sinemet (25/ 100)) 1 tab TID GTB Last administered on 12:09; Admin Dose 1 TAB; Start 10/16/16 at 21:00 Lidocaine (Lidocaine 5% Oint) 1 applic TID TOP Last administered on 11/08/16 12:09; Admin Dose 1 APPLIC; Start 10/16/16 at 21:00 Metoprolol Tartrate (Lopressor) 12.5 mg BID GTB Last administered on 11/08/16 09:15; Admin Dose 12.5 MG; Start 10/16/16 at 21:00 Insulin Aspart (Novolog Insulin Pen) NOVOLOG *MILD* ALGORI... Q6 SC Last administered on 11/08/16 12:10; Admin Dose 1 UNIT; Start 10/24/16 at 18:00 Lactobacillus Acidoph/Bulgaricus (Floranex) 2 tab BID GTB Last administered on 11/08/16 09:14; Admin Dose 2 TAB; Start 10/24/16 at 21:00 Nystatin (Nystatin Susp) 5 ml QID GTB Last administered on 11/08/16 12:09; Admin Dose 5 ML; Start 10/24/16 at 21:00 Levetiracetam (Keppra) 1,000 mg BID PO Last administered on 11/08/16 09:14; Admin Dose 1,000 MG; Start 10/26/16 at 21:00 Insulin Glargine (Lantus) 10 unit DAILY@20 SC Last administered on 11/07/16 21 :17; Admin Dose 10 UNIT; Start 10/26/16 at 20:00 Demeclocycline HCl (Declomycin) 300 mg BID GTB Last administered on 11/08/16 09:14; Admin Dose 300 MG; Start 10/29/16 at 09:00 Potassium Chloride (Potassium Chloride Pwd/Soln) 40 meq DAILY GTB Last administered on 11/08/16 09:14; Admin Dose 40 MEQ; Start 10/31/16 at 09:00 Lactulose (Enulose) 30 gm TID GTB Last administered on 11/08/16 12:09; Admin Dose 30 GM; Start 11/04/16 at 21:00 KENYATTA CAPPS Nov 08, 2016 15:28
[2016-11-08] MEDS: ATORVASTATIN 40 MG TAB GTB SCH (21:04)
[2016-11-08] MEDS: INSULIN GLARGINE [LANtus] 3 ML PEN SC SCH (21:12)
--- NOTE | 2016-11-08 22:34 | CONS ---
Date/Time of Note Date/Time of Note DATE: 11/08/16 TIME: 22:32 Assessment/Plan Assessment/Plan Additional Assessment/Plan 1. Severe hyponatremia with a sodium of 119 on admission with seizures, possibly acute on chronic hyponatremia versus acute severe hyponatremia.- pt went from hyponatremia to hypernatremia with treatment with 3% saline and one dose of tolvaptan - then Improved to normal today wtih D5W IVF and DDAVP 0.2mg PO x2 dose 10/15/16- on 10/16/16 again Na dropped to 119 s/p Tovlaptan 15 mg PO x1 on 10/18/16-now Na 143- decreased Demeclocycline to 150mg BID on 10/26/2016- again Na dropped to 120 on 10/30/2016- Now Na dropped to128- will give tolvaptan 15mg PO x 1 dose 11/07/16- Na 137 2. Seizures secondary to severe hyponatremia. 3. Sepsis secondary to bilateral pneumonia. 4. Ventilator-dependent respiratory failure, status post tracheostomy, on vent. 5. History of a previous brain tumor, had surgery. Currently, status post ventriculoperitoneal shunt in place. 6. History of a previous cerebellar cerebrovascular accident. PLAN: pt received 3 % saline and tolvaptan one dose on 10/10 and 10/11- went into polyuria, Na went from hyponatremia to hypernatremia- now improved to normal with D5W IVF and 2 dose of DDAVP 0.2mg- again today 10/16- na dropped from 140 to 122- given 3% hypertonic saline for another 12 hr - did not respond well, Na again dropped to 119- One dose of tolvaptan 15 mg X 1 10/18/16- Na dropped to 130 10/22/2016- tolvaptan 15 gram po x 1 dose on 09/21/16- now Na normal, - will decreased demeclocycline to 150mg BID on 10/26/16- Na dropped to 125 10/29/16- increased demeclocycline to 300mg PO BID on 10/29/2016- Na again dropped to 120- will give Tolvaptan 15 mg PO x 1 dose on 10/30/2016- Now Na dropped to128 on 07/16- will give tolvaptan 15mg PO x 1 dose 11/07/16- Na 137 continue demeclocycline 300mg BID onTube feeding continue demeclocycline 300mg PO BID to avoid use of tolvaptan monitor Na, pt has acute on chronic hyponatremia ventilator care as per pulmonary will follow up Consultation Date/Type/Reason Admit Date/Time Oct 10, 2016 at 13:53 Initial Consult Date 10/10/16 Type of Consultation: NEPHROLOGY Referring Provider: MADDY HOPKINS MD 24 HR Interval Summary Free Text/Dictation Na stable, no acute events Exam/Review of Systems Vital Signs Vitals Vital Signs Date Time Temp Pulse Resp B/P Pulse Ox O2 Delivery O2 Flow Rate FiO2 11/08/16 21:28 72 14 99 30 11/08/16 20:00 98.9 129/75 Intake and Output 11/07/16 11/07/16 11/08/16 15:00 23:00 07:00 Intake Total 800 ml 850 ml Output Total 850 ml 1800 ml Balance -50 ml -950 ml Results Result Diagram: 11/07/16 0540 11/08/16 0542 Results 24 hrs Laboratory Tests Test 11/08/16 00:14 11/08/16 05:42 11/08/16 05:49 11/08/16 11:48 Bedside Glucose 158 151 147 Sodium Level 140 Test 11/08/16 17:20 11/08/16 21:10 Bedside Glucose 135 140 Medications Medications Current Medications Ondansetron HCl (Zofran Inj) 4 mg Q6H PRN IV NAUSEA AND/OR VOMITING Last administered on 11/02/16 09:52; Admin Dose 4 MG; Start 10/10/16 at 14:00 Nitroglycerin (Nitroglycerin (Sl Tab) 0.4 Mg) 1 tab Q5M PRN SL CHEST PAIN; Start 10/10/16 at 14:00 Acetaminophen (Tylenol Supp) 650 mg Q4H PRN [place] PAIN LEVEL 1-3 OR FEVER Last administered on 10/30/16 14:05; Admin Dose 650 MG; Start 10/10/16 at 14:00 Morphine Sulfate (morphine) 2 mg Q4H PRN [place] PAIN LEVEL 7-10 Last administered on 11/03/16 04:59; Admin Dose 2 MG; Start 10/10/16 at 14:00 Lorazepam (Ativan) 1 mg Q2H PRN IV ANXIETY Last administered on 10/15/16 20:27 ; Admin Dose 1 MG; Start 10/10/16 at 14:00 Docusate Sodium (Colace) 100 mg Q12H PRN PO CONSTIPATION; Start 10/10/16 at 14: 00 Hydralazine HCl (Apresoline) 10 mg Q6H PRN IV ELEVATED BLOOD PRESSURE Last administered on 10/29/16 23:43; Admin Dose 10 MG; Start 10/10/16 at 19:00 Atorvastatin Calcium (Lipitor) 40 mg QHS GTB Last administered on 11/08/16 21: 04; Admin Dose 40 MG; Start 10/15/16 at 21:00 Benazepril HCl (Lotensin) 10 mg DAILY GTB Last administered on 11/08/16 09:21 ; Admin Dose 10 MG; Start 10/15/16 at 12:00 Docusate Sodium (Colace Liquid Cup) 200 mg DAILY PRN GTB CONSTIPATION Last administered on 10/16/16 08:44; Admin Dose 200 MG; Start 10/15/16 at 12:00 Ferrous Sulfate (Feosol Liquid Cup) 330 mg DAILY GTB Last administered on 09:13; Admin Dose 330 MG; Start 10/16/16 at 09:00 Hydralazine HCl (Apresoline) 25 mg Q6H PRN GTB ELEVATED BLOOD PRESSURE Last administered on 10/27/16 12:46; Admin Dose 25 MG; Start 10/15/16 at 12:00 Mineral Oil (Fleet Mineral Oil Enema) 133 ml DAILY PRN [place] CONSTIPATION Last administered on 10/16/16 03:54; Admin Dose 133 ML; Start 10/15/16 at 12:00 Multivitamins Therapeutic (Theragran) 1 tab DAILY PO Last administered on 09:14; Admin Dose 1 TAB; Start 10/15/16 at 12:00 Miscellaneous Information 1 ea NOTE XX ; Start 10/15/16 at 21:30 Glucose (Glutose) 15 gm Q15M PRN PO DECREASED GLUCOSE; Start 10/15/16 at 21:30 Glucose (Glutose) 22.5 gm Q15M PRN PO DECREASED GLUCOSE; Start 10/15/16 at 21: 30 Dextrose (D50w Syringe) 25 ml Q15M PRN IV DECREASED GLUCOSE Last administered on 10/26/16 17:48; Admin Dose 25 ML; Start 10/15/16 at 21:30 Dextrose (D50w Syringe) 50 ml Q15M PRN IV DECREASED GLUCOSE; Start 10/15/16 at 21:30 Glucagon (Glucagen) 1 mg Q15M PRN IM DECREASED GLUCOSE; Start 10/15/16 at 21:30 Glucose (Glutose) 15 gm Q15M PRN BUCCAL DECREASED GLUCOSE; Start 10/15/16 at 21 :30 Metoclopramide HCl (Reglan) 10 mg Q6 IV Last administered on 11/08/16 17:22; Admin Dose 10 MG; Start 10/16/16 at 18:00 Lansoprazole (Prevacid) 30 mg BID@,18 GTB Last administered on 11/08/16 17: 22; Admin Dose 30 MG; Start 10/17/16 at 06:00 Carbidopa/Levodopa (Sinemet (25/ 100)) 1 tab TID GTB Last administered on 21:04; Admin Dose 1 TAB; Start 10/16/16 at 21:00 Lidocaine (Lidocaine 5% Oint) 1 applic TID TOP Last administered on 11/08/16 21:04; Admin Dose 1 APPLIC; Start 10/16/16 at 21:00 Metoprolol Tartrate (Lopressor) 12.5 mg BID GTB Last administered on 11/08/16 09:15; Admin Dose 12.5 MG; Start 10/16/16 at 21:00 Insulin Aspart (Novolog Insulin Pen) NOVOLOG *MILD* ALGORI... Q6 SC Last administered on 11/08/16 12:10; Admin Dose 1 UNIT; Start 10/24/16 at 18:00 Lactobacillus Acidoph/Bulgaricus (Floranex) 2 tab BID GTB Last administered on 11/08/16 21:04; Admin Dose 2 TAB; Start 10/24/16 at 21:00 Nystatin (Nystatin Susp) 5 ml QID GTB Last administered on 11/08/16 21:04; Admin Dose 5 ML; Start 10/24/16 at 21:00 Levetiracetam (Keppra) 1,000 mg BID PO Last administered on 11/08/16 21:04; Admin Dose 1,000 MG; Start 10/26/16 at 21:00 Insulin Glargine (Lantus) 10 unit DAILY@20 SC Last administered on 11/08/16 21 :12; Admin Dose 10 UNIT; Start 10/26/16 at 20:00 Demeclocycline HCl (Declomycin) 300 mg BID GTB Last administered on 11/08/16 21:04; Admin Dose 300 MG; Start 10/29/16 at 09:00 Potassium Chloride (Potassium Chloride Pwd/Soln) 40 meq DAILY GTB Last administered on 11/08/16 09:14; Admin Dose 40 MEQ; Start 10/31/16 at 09:00 Lactulose (Enulose) 30 gm TID GTB Last administered on 11/08/16 21:04; Admin Dose 30 GM; Start 11/04/16 at 21:00 LISSA PARK MD Nov 08, 2016 22:34
[2016-11-09] VITALS (26 sets, daily range): BP systolic 91–112; BP diastolic 57–69; PULSE 63–85; RESP 14–19
[2016-11-09] MEDS: METOCLOPRAMIDE 10 MG INJ IV SCH ×5 (01:07→23:49)
[2016-11-09] MEDS: INSULIN ASPART [NOVOLOG] 3 ML PEN SC SCH ×5 (01:16→23:49)
[2016-11-09] MEDS: LANSOPRAZOLE 30 MG CAP GTB SCH ×2 (05:40→17:36)
[2016-11-09 07:06] LABS: ADD SCAN DIFF NO
[2016-11-09 07:15] LABS: BASOPHIL # 0.1 10^3/ul (0.0-0.1); BASOPHILS % 1.1 % (0.0-2.0); EOSINOPHILS # 0.2 10^3/ul (0.0-0.5); EOSINOPHILS % 2.3 % (0.0-7.0); HEMATOCRIT 29.2 % (42.0-52.0); HEMOGLOBIN 9.5 g/dl (14.0-18.0); LYMPHOCYTES # 0.8 10^3/ul (0.8-2.9); LYMPHOCYTES % 8.7 % (15.0-51.0); MEAN CORPUSCULAR HEMOGLOBIN 29.5 pg (29.0-33.0); MEAN CORPUSCULAR HGB CONC 32.5 g/dl (32.0-37.0); MEAN CORPUSCULAR VOLUME 90.7 fl (82.0-101.0); MEAN PLATELET VOLUME 9.5 fl (7.4-10.4); MONOCYTE # 0.9 10^3/ul (0.3-0.9); NEUTROPHIL # 6.9 10^3/ul (1.6-7.5); NEUTROPHILS % 76.5 % (39.0-77.0); PLATELET COUNT 293 10^3/UL (140-415); RED BLOOD COUNT 3.22 10^6/ul (4.70-6.10); RED CELL DISTRIBUTION WIDTH 15.4 % (11.5-14.5)
[2016-11-09 07:30] LABS: POTASSIUM 4.1 mmol/L (3.5-5.1)
[2016-11-09 07:33] LABS: CREATININE 0.28 mg/dl (0.61-1.24)
[2016-11-09] MEDS: FERROUS SULFATE 60 MG/ML 5ML CUP GTB SCH (09:48)
[2016-11-09] MEDS: NYSTATIN SUSP 5 ML CUP GTB SCH ×4 (09:48→21:26)
[2016-11-09] MEDS: LACTULOSE 30ML CUP GTB SCH ×3 (09:49→21:27)
[2016-11-09] MEDS: POTASSIUM CHLORIDE 20 MEQ POWDER FOR ORAL SOLN GTB SCH (09:49)
[2016-11-09] MEDS: LEVETIRACETAM 500 MG TAB PO SCH ×2 (09:49→21:27)
[2016-11-09] MEDS: DEMECLOCYCLINE 150 MG TAB GTB SCH ×2 (09:49→21:27)
[2016-11-09] MEDS: BENAZEPRIL 10 MG TAB GTB SCH (09:50)
[2016-11-09] MEDS: CARBIDOPA/LEVODOPA (25/100) TAB GTB SCH ×3 (09:50→21:27)
[2016-11-09] MEDS: MULTIVITAMINS THERAPEUTIC TAB PO SCH (09:50)
[2016-11-09] MEDS: METOPROLOL 25 MG TAB GTB SCH (09:50)
[2016-11-09] MEDS: LIDOCAINE 5% 35 GM OINT TOP SCH ×3 (09:53→21:26)
[2016-11-09] MEDS: LACTOBACILLUS CHEW TAB GTB SCH ×2 (09:53→21:27)
--- NOTE | 2016-11-09 14:20 | PN ---
DATE: 11/09/2016 SUBJECTIVE: The patient is stable this morning. No evidence of respiratory distress. PHYSICAL EXAMINATION: VITAL SIGNS: Temperature 98, pulse is 77, blood pressure 97/61, O2 saturation 96% on 30% FIO2. NECK: Supple. No JVD or lymphadenopathy. CARDIAC: S1, S2, no added sounds or murmurs. CHEST: Diminished air entry bilaterally. ABDOMEN: Soft, nontender. No guarding or rebound. EXTREMITIES: No cyanosis, clubbing or edema. NEUROLOGIC: Generalized weakness. LABORATORY DATA: White count 9, hemoglobin 9.5, platelets 293. BUN 15, creatinine 0.28. INR 1.09. ABG: PaO2 was 148, pH 7.43 on current ventilator settings. IMPRESSION AND PLAN: 1. Vent dependent respiratory failure, currently stable. 2. History of recent urinary tract infection with sepsis resolved. 3. History of intracerebral bleed with craniotomy, stable anoxic brain injury. From pulmonary [place] [place], the patient is stable for discharge back to the [facility] facility. Dictated By: JOSE MENA/PIPER Conf#: [id number] DID#: [id number]
--- NOTE | 2016-11-09 17:13 | CONS ---
Date/Time of Note Date/Time of Note DATE: 11/09/16 TIME: 17:12 Assessment/Plan Assessment/Plan Additional Assessment/Plan 1. Severe hyponatremia with a sodium of 119 on admission with seizures, possibly acute on chronic hyponatremia versus acute severe hyponatremia.- pt went from hyponatremia to hypernatremia with treatment with 3% saline and one dose of tolvaptan - then Improved to normal today wtih D5W IVF and DDAVP 0.2mg PO x2 dose 10/15/16- on 10/16/16 again Na dropped to 119 s/p Tovlaptan 15 mg PO x1 on 10/18/16-now Na 143- decreased Demeclocycline to 150mg BID on 10/26/2016- again Na dropped to 120 on 10/30/2016- Now Na dropped to128- will give tolvaptan 15mg PO x 1 dose 11/07/16- Na 137 2. Seizures secondary to severe hyponatremia. 3. Sepsis secondary to bilateral pneumonia. 4. Ventilator-dependent respiratory failure, status post tracheostomy, on vent. 5. History of a previous brain tumor, had surgery. Currently, status post ventriculoperitoneal shunt in place. 6. History of a previous cerebellar cerebrovascular accident. PLAN: pt received 3 % saline and tolvaptan one dose on 10/10 and 10/11- went into polyuria, Na went from hyponatremia to hypernatremia- now improved to normal with D5W IVF and 2 dose of DDAVP 0.2mg- again today 10/16- na dropped from 140 to 122- given 3% hypertonic saline for another 12 hr - did not respond well, Na again dropped to 119- One dose of tolvaptan 15 mg X 1 10/18/16- Na dropped to 130 10/22/2016- tolvaptan 15 gram po x 1 dose on 09/21/16- now Na normal, - will decreased demeclocycline to 150mg BID on 10/26/16- Na dropped to 125 10/29/16- increased demeclocycline to 300mg PO BID on 10/29/2016- Na again dropped to 120- will give Tolvaptan 15 mg PO x 1 dose on 10/30/2016- Now Na dropped to128 on 07/16- will give tolvaptan 15mg PO x 1 dose 11/07/16- today Na 139 continue demeclocycline 300mg BID onTube feeding continue demeclocycline 300mg PO BID to avoid use of tolvaptan monitor Na, pt has acute on chronic hyponatremia ventilator care as per pulmonary will follow up Consultation Date/Type/Reason Admit Date/Time Oct 10, 2016 at 13:53 Initial Consult Date 10/10/16 Type of Consultation: NEPHROLOGY Referring Provider: MADDY HOPKINS MD 24 HR Interval Summary Free Text/Dictation Na 139, no acute events overnight Exam/Review of Systems Vital Signs Vitals Vital Signs Date Time Temp Pulse Resp B/P Pulse Ox O2 Delivery O2 Flow Rate FiO2 11/09/16 16:57 63 11/09/16 16:39 98.1 15 100/57 100 11/09/16 15:15 30 Intake and Output 11/08/16 11/08/16 11/09/16 15:00 23:00 07:00 Intake Total 800 ml 850 ml Output Total 600 ml 300 ml Balance 200 ml 550 ml Exam HEENT: Tracheostomy site is clear. LUNGS: Bilateral coarse breath sounds with bilateral basilar rales present and lower lobe rhonchi present. HEART: S1, S2, tachycardia, no murmur. ABDOMEN: Soft. G-tube in place. EXTREMITIES: No clubbing, cyanosis, or edema. The patient is very debilitated. , + steve catheter in place Results Result Diagram: 11/09/16 0548 11/09/16 0548 Results 24 hrs Laboratory Tests Test 11/08/16 17:20 11/08/16 21:10 11/09/16 01:10 11/09/16 05:42 Bedside Glucose 135 140 156 159 Test 11/09/16 05:48 11/09/16 11:32 Anion Gap 13 Basophils # 0.1 Basophils % 1.1 Blood Urea Nitrogen 15 Calcium Level 8.0 L Carbon Dioxide Level 28 Chloride Level 102 Creatinine 0.28 L Eosinophils # 0.2 Eosinophils % 2.3 Glucose Level 133 Hematocrit 29.2 L Hemoglobin 9.5 L Lymphocytes # 0.8 Lymphocytes % 8.7 L Mean Corpuscular Hemoglobin 29.5 Mean Corpuscular Hemoglobin Concent 32.5 Mean Corpuscular Volume 90.7 Mean Platelet Volume 9.5 Monocytes # 0.9 Monocytes % 10.0 Neutrophils # 6.9 Neutrophils % 76.5 Nucleated Red Blood Cells # 0.0 Nucleated Red Blood Cells % 0.0 Platelet Count 293 # Potassium Level 4.1 Red Blood Count 3.22 L Red Cell Distribution Width 15.4 H Sodium Level 139 White Blood Count 9.0 Bedside Glucose 165 Medications Medications Current Medications Ondansetron HCl (Zofran Inj) 4 mg Q6H PRN IV NAUSEA AND/OR VOMITING Last administered on 11/02/16 09:52; Admin Dose 4 MG; Start 10/10/16 at 14:00 Nitroglycerin (Nitroglycerin (Sl Tab) 0.4 Mg) 1 tab Q5M PRN SL CHEST PAIN; Start 10/10/16 at 14:00 Acetaminophen (Tylenol Supp) 650 mg Q4H PRN [place] PAIN LEVEL 1-3 OR FEVER Last administered on 10/30/16 14:05; Admin Dose 650 MG; Start 10/10/16 at 14:00 Morphine Sulfate (morphine) 2 mg Q4H PRN IV PAIN LEVEL 7-10 Last administered on 11/03/16 04:59; Admin Dose 2 MG; Start 10/10/16 at 14:00 Lorazepam (Ativan) 1 mg Q2H PRN IV ANXIETY Last administered on 10/15/16 20:27 ; Admin Dose 1 MG; Start 10/10/16 at 14:00 Docusate Sodium (Colace) 100 mg Q12H PRN PO CONSTIPATION; Start 10/10/16 at 14: 00 Hydralazine HCl (Apresoline) 10 mg Q6H PRN IV ELEVATED BLOOD PRESSURE Last administered on 10/29/16 23:43; Admin Dose 10 MG; Start 10/10/16 at 19:00 Atorvastatin Calcium (Lipitor) 40 mg QHS GTB Last administered on 11/08/16 21: 04; Admin Dose 40 MG; Start 10/15/16 at 21:00 Benazepril HCl (Lotensin) 10 mg DAILY GTB Last administered on 11/09/16 09:50 ; Admin Dose 10 MG; Start 10/15/16 at 12:00 Docusate Sodium (Colace Liquid Cup) 200 mg DAILY PRN GTB CONSTIPATION Last administered on 10/16/16 08:44; Admin Dose 200 MG; Start 10/15/16 at 12:00 Ferrous Sulfate (Feosol Liquid Cup) 330 mg DAILY GTB Last administered on 09:48; Admin Dose 330 MG; Start 10/16/16 at 09:00 Hydralazine HCl (Apresoline) 25 mg Q6H PRN GTB ELEVATED BLOOD PRESSURE Last administered on 10/27/16 12:46; Admin Dose 25 MG; Start 10/15/16 at 12:00 Mineral Oil (Fleet Mineral Oil Enema) 133 ml DAILY PRN [place] CONSTIPATION Last administered on 10/16/16 03:54; Admin Dose 133 ML; Start 10/15/16 at 12:00 Multivitamins Therapeutic (Theragran) 1 tab DAILY PO Last administered on 09:50; Admin Dose 1 TAB; Start 10/15/16 at 12:00 Miscellaneous Information 1 ea NOTE XX ; Start 10/15/16 at 21:30 Glucose (Glutose) 15 gm Q15M PRN PO DECREASED GLUCOSE; Start 10/15/16 at 21:30 Glucose (Glutose) 22.5 gm Q15M PRN PO DECREASED GLUCOSE; Start 10/15/16 at 21: 30 Dextrose (D50w Syringe) 25 ml Q15M PRN IV DECREASED GLUCOSE Last administered on 10/26/16 17:48; Admin Dose 25 ML; Start 10/15/16 at 21:30 Dextrose (D50w Syringe) 50 ml Q15M PRN IV DECREASED GLUCOSE; Start 10/15/16 at 21:30 Glucagon (Glucagen) 1 mg Q15M PRN IM DECREASED GLUCOSE; Start 10/15/16 at 21:30 Glucose (Glutose) 15 gm Q15M PRN BUCCAL DECREASED GLUCOSE; Start 10/15/16 at 21 :30 Metoclopramide HCl (Reglan) 10 mg Q6 IV Last administered on 11/09/16 12:22; Admin Dose 10 MG; Start 10/16/16 at 18:00 Lansoprazole (Prevacid) 30 mg BID@18 GTB Last administered on 11/09/16 05: 40; Admin Dose 30 MG; Start 10/17/16 at 06:00 Carbidopa/Levodopa (Sinemet (25/ 100)) 1 tab TID GTB Last administered on 12:20; Admin Dose 1 TAB; Start 10/16/16 at 21:00 Lidocaine (Lidocaine 5% Oint) 1 applic TID TOP Last administered on 11/09/16 12:23; Admin Dose 1 APPLIC; Start 10/16/16 at 21:00 Insulin Aspart (Novolog Insulin Pen) NOVOLOG *MILD* ALGORI... Q6 SC Last administered on 11/09/16 12:22; Admin Dose 1 UNIT; Start 10/24/16 at 18:00 Lactobacillus Acidoph/Bulgaricus (Floranex) 2 tab BID GTB Last administered on 11/09/16 09:53; Admin Dose 2 TAB; Start 10/24/16 at 21:00 Nystatin (Nystatin Susp) 5 ml QID GTB Last administered on 11/09/16 12:20; Admin Dose 5 ML; Start 10/24/16 at 21:00 Levetiracetam (Keppra) 1,000 mg BID PO Last administered on 11/09/16 09:49; Admin Dose 1,000 MG; Start 10/26/16 at 21:00 Insulin Glargine (Lantus) 10 unit DAILY@20 SC Last administered on 11/08/16 21 :12; Admin Dose 10 UNIT; Start 10/26/16 at 20:00 Demeclocycline HCl (Declomycin) 300 mg BID GTB Last administered on 11/09/16 09:49; Admin Dose 300 MG; Start 10/29/16 at 09:00 Potassium Chloride (Potassium Chloride Pwd/Soln) 40 meq DAILY GTB Last administered on 11/09/16 09:49; Admin Dose 40 MEQ; Start 10/31/16 at 09:00 Lactulose (Enulose) 30 gm TID GTB Last administered on 11/09/16 12:20; Admin Dose 30 GM; Start 11/04/16 at 21:00 LISSA PARK MD Nov 09, 2016 17:13
--- NOTE | 2016-11-09 19:13 | PN ---
Date/Time of Note Date/Time of Note DATE: 11/09/16 TIME: 19:10 Assessment/Plan VTE Prophylaxis VTE Prophylaxis Intervention: SCD's Lines/Catheters IV [facility] Urinary Cath still in place: Yes Reason Cath still needed: urinary retention Assessment/Plan Chief Complaint/Hosp Course ASSESSMENT AND PLAN: - Hypotension, continue intravenous fluid bolus, continue telemetry monitoring. - Persistent Hyponatremia 2 SIADH. Patient is followed by Dr. Tovar in nephrology consultation. Continue demeclocycline. - Dysphagia with PEG. Dr. Mas is following gastroenterology consultation. - Status post aspiration, status post treatment. - Sepsis secondary to urinary tract infection and healthcare-acquired pneumonia. Status post treatment. patient is followed by Dr. Sales in infectious disease consultation. - Ventilator dependent respiratory failure. Dr. Unger is following from pulmonology standpoint. Continue bronchodilators and ventilatory support. 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 - Seizure disorder. Continue Keppra. - Hypertension, continue benazepril and hydralazine. - History of cerebrovascular accident. Continue sequential compression device for deep venous thrombosis prophylaxis and Pepcid for peptic ulcer disease prophylaxis. Further recommendations based on clinical course. Plan of care discussed with Dr. Desir. Problems: Subjective 24 Hr Interval Summary Free Text/Dictation Patient was episodes of hypotension with systolic blood pressure being in the 80s, status post IV fluids boluses with some improvement, continue close monitoring on telemetry floor. There is no vomiting per RN. Patient tolerates G-tube feeding well so far. Exam/Review of Systems Vital Signs Vitals Vital Signs Date Time Temp Pulse Resp B/P Pulse Ox O2 Delivery O2 Flow Rate FiO2 11/09/16 17:35 98.4 67 16 106/65 98 11/09/16 17:25 30 Intake and Output 11/08/16 11/08/16 11/09/16 15:00 23:00 07:00 Intake Total 800 ml 850 ml Output Total 600 ml 300 ml Balance 200 ml 550 ml Exam GENERAL: This is a well-developed male on ventilator support, does not respond to verbal internal stimuli. HEENT: Head is atraumatic, normocephalic. Pupils equal, round, reactive to light and accommodation. NECK: Supple. Tracheostomy at the base of the neck. CHEST: Scattered rhonchi bilaterally, slightly diminished at the bases. No wheezes noted. HEART: Normal S1, S2. No murmurs, gallops, clicks, rubs noted. ABDOMEN: Protuberant, soft, nondistended, nontender. Bowel sounds present. EXTREMITIES: Mild edema. There is no clubbing or cyanosis. Pulses equal bilaterally 2+. SKIN: There is no rash, petechiae noted. NEUROLOGIC: The patient is obtunded. Results Result Diagram: 11/09/16 0548 11/09/16 0548 Results 24 hrs Laboratory Tests Test 11/08/16 21:10 11/09/16 01:10 11/09/16 05:42 11/09/16 05:48 Bedside Glucose 140 156 159 Anion Gap 13 Basophils # 0.1 Basophils % 1.1 Blood Urea Nitrogen 15 Calcium Level 8.0 L Carbon Dioxide Level 28 Chloride Level 102 Creatinine 0.28 L Eosinophils # 0.2 Eosinophils % 2.3 Glucose Level 133 Hematocrit 29.2 L Hemoglobin 9.5 L Lymphocytes # 0.8 Lymphocytes % 8.7 L Mean Corpuscular Hemoglobin 29.5 Mean Corpuscular Hemoglobin Concent 32.5 Mean Corpuscular Volume 90.7 Mean Platelet Volume 9.5 Monocytes # 0.9 Monocytes % 10.0 Neutrophils # 6.9 Neutrophils % 76.5 Nucleated Red Blood Cells # 0.0 Nucleated Red Blood Cells % 0.0 Platelet Count 293 # Potassium Level 4.1 Red Blood Count 3.22 L Red Cell Distribution Width 15.4 H Sodium Level 139 White Blood Count 9.0 Test 11/09/16 11:32 11/09/16 17:34 Bedside Glucose 165 156 Medications Medications Current Medications Ondansetron HCl (Zofran Inj) 4 mg Q6H PRN IV NAUSEA AND/OR VOMITING Last administered on 11/02/16 09:52; Admin Dose 4 MG; Start 10/10/16 at 14:00 Nitroglycerin (Nitroglycerin (Sl Tab) 0.4 Mg) 1 tab Q5M PRN SL CHEST PAIN; Start 10/10/16 at 14:00 Acetaminophen (Tylenol Supp) 650 mg Q4H PRN [place] PAIN LEVEL 1-3 OR FEVER Last administered on 10/30/16 14:05; Admin Dose 650 MG; Start 10/10/16 at 14:00 Morphine Sulfate (morphine) 2 mg Q4H PRN IV PAIN LEVEL 7-10 Last administered on 11/03/16 04:59; Admin Dose 2 MG; Start 10/10/16 at 14:00 Lorazepam (Ativan) 1 mg Q2H PRN IV ANXIETY Last administered on 10/15/16 20:27 ; Admin Dose 1 MG; Start 10/10/16 at 14:00 Docusate Sodium (Colace) 100 mg Q12H PRN PO CONSTIPATION; Start 10/10/16 at 14: 00 Hydralazine HCl (Apresoline) 10 mg Q6H PRN IV ELEVATED BLOOD PRESSURE Last administered on 10/29/16 23:43; Admin Dose 10 MG; Start 10/10/16 at 19:00 Atorvastatin Calcium (Lipitor) 40 mg QHS GTB Last administered on 11/08/16 21: 04; Admin Dose 40 MG; Start 10/15/16 at 21:00 Benazepril HCl (Lotensin) 10 mg DAILY GTB Last administered on 11/09/16 09:50 ; Admin Dose 10 MG; Start 10/15/16 at 12:00 Docusate Sodium (Colace Liquid Cup) 200 mg DAILY PRN GTB CONSTIPATION Last administered on 10/16/16 08:44; Admin Dose 200 MG; Start 10/15/16 at 12:00 Ferrous Sulfate (Feosol Liquid Cup) 330 mg DAILY GTB Last administered on 09:48; Admin Dose 330 MG; Start 10/16/16 at 09:00 Hydralazine HCl (Apresoline) 25 mg Q6H PRN GTB ELEVATED BLOOD PRESSURE Last administered on 10/27/16 12:46; Admin Dose 25 MG; Start 10/15/16 at 12:00 Mineral Oil (Fleet Mineral Oil Enema) 133 ml DAILY PRN [place] CONSTIPATION Last administered on 10/16/16 03:54; Admin Dose 133 ML; Start 10/15/16 at 12:00 Multivitamins Therapeutic (Theragran) 1 tab DAILY PO Last administered on 09:50; Admin Dose 1 TAB; Start 10/15/16 at 12:00 Miscellaneous Information 1 ea NOTE XX ; Start 10/15/16 at 21:30 Glucose (Glutose) 15 gm Q15M PRN PO DECREASED GLUCOSE; Start 10/15/16 at 21:30 Glucose (Glutose) 22.5 gm Q15M PRN PO DECREASED GLUCOSE; Start 10/15/16 at 21: 30 Dextrose (D50w Syringe) 25 ml Q15M PRN IV DECREASED GLUCOSE Last administered on 10/26/16 17:48; Admin Dose 25 ML; Start 10/15/16 at 21:30 Dextrose (D50w Syringe) 50 ml Q15M PRN IV DECREASED GLUCOSE; Start 10/15/16 at 21:30 Glucagon (Glucagen) 1 mg Q15M PRN IM DECREASED GLUCOSE; Start 10/15/16 at 21:30 Glucose (Glutose) 15 gm Q15M PRN BUCCAL DECREASED GLUCOSE; Start 10/15/16 at 21 :30 Metoclopramide HCl (Reglan) 10 mg Q6 IV Last administered on 11/09/16 17:36; Admin Dose 10 MG; Start 10/16/16 at 18:00 Lansoprazole (Prevacid) 30 mg BID@18 GTB Last administered on 11/09/16 17: 36; Admin Dose 30 MG; Start 10/17/16 at 06:00 Carbidopa/Levodopa (Sinemet (25/ 100)) 1 tab TID GTB Last administered on 12:20; Admin Dose 1 TAB; Start 10/16/16 at 21:00 Lidocaine (Lidocaine 5% Oint) 1 applic TID TOP Last administered on 11/09/16 12:23; Admin Dose 1 APPLIC; Start 10/16/16 at 21:00 Insulin Aspart (Novolog Insulin Pen) NOVOLOG *MILD* ALGORI... Q6 SC Last administered on 11/09/16 17:47; Admin Dose 1 UNIT; Start 10/24/16 at 18:00 Lactobacillus Acidoph/Bulgaricus (Floranex) 2 tab BID GTB Last administered on 11/09/16 09:53; Admin Dose 2 TAB; Start 10/24/16 at 21:00 Nystatin (Nystatin Susp) 5 ml QID GTB Last administered on 11/09/16 17:36; Admin Dose 5 ML; Start 10/24/16 at 21:00 Levetiracetam (Keppra) 1,000 mg BID PO Last administered on 11/09/16 09:49; Admin Dose 1,000 MG; Start 10/26/16 at 21:00 Insulin Glargine (Lantus) 10 unit DAILY@20 SC Last administered on 11/08/16 21 :12; Admin Dose 10 UNIT; Start 10/26/16 at 20:00 Demeclocycline HCl (Declomycin) 300 mg BID GTB Last administered on 11/09/16 09:49; Admin Dose 300 MG; Start 10/29/16 at 09:00 Potassium Chloride (Potassium Chloride Pwd/Soln) 40 meq DAILY GTB Last administered on 11/09/16 09:49; Admin Dose 40 MEQ; Start 10/31/16 at 09:00 Lactulose (Enulose) 30 gm TID GTB Last administered on 11/09/16 12:20; Admin Dose 30 GM; Start 11/04/16 at 21:00 ALTHEA ACOSTA Nov 09, 2016 19:12
[2016-11-09] MEDS: INSULIN GLARGINE [LANtus] 3 ML PEN SC SCH (21:25)
[2016-11-09] MEDS: ATORVASTATIN 40 MG TAB GTB SCH (21:27)
[2016-11-10] VITALS (26 sets, daily range): BP systolic 99–134; BP diastolic 59–87; PULSE 60–73; RESP 14–21
[2016-11-10] MEDS: METOCLOPRAMIDE 10 MG INJ IV SCH ×3 (05:47→18:08)
[2016-11-10] MEDS: LANSOPRAZOLE 30 MG CAP GTB SCH ×2 (05:47→18:08)
[2016-11-10] MEDS: INSULIN ASPART [NOVOLOG] 3 ML PEN SC SCH ×3 (05:52→18:09)
[2016-11-10 06:59] LABS: ADD SCAN DIFF NO
[2016-11-10 07:02] LABS: BASOPHIL # 0.1 10^3/ul (0.0-0.1); EOSINOPHILS # 0.2 10^3/ul (0.0-0.5); EOSINOPHILS % 2.7 % (0.0-7.0); HEMATOCRIT 28.2 % (42.0-52.0); LYMPHOCYTES # 0.9 10^3/ul (0.8-2.9); MEAN CORPUSCULAR HGB CONC 31.9 g/dl (32.0-37.0); MEAN PLATELET VOLUME 9.4 fl (7.4-10.4); MONOCYTE # 0.9 10^3/ul (0.3-0.9); MONOCYTES % 10.5 % (0.0-11.0); NEUTROPHIL # 6.1 10^3/ul (1.6-7.5); NEUTROPHILS % 73.6 % (39.0-77.0); PLATELET COUNT 232 10^3/UL (140-415); RED CELL DISTRIBUTION WIDTH 15.6 % (11.5-14.5); WHITE BLOOD COUNT 8.3 10^3/ul (4.8-10.8)
[2016-11-10 07:20] LABS: CREATININE 0.31 mg/dl (0.61-1.24)
[2016-11-10] MEDS: NYSTATIN SUSP 5 ML CUP GTB SCH ×4 (09:22→21:58)
[2016-11-10] MEDS: DEMECLOCYCLINE 150 MG TAB GTB SCH ×2 (09:23→21:59)
[2016-11-10] MEDS: LACTULOSE 30ML CUP GTB SCH ×3 (09:23→21:58)
[2016-11-10] MEDS: FERROUS SULFATE 60 MG/ML 5ML CUP GTB SCH (09:23)
[2016-11-10] MEDS: POTASSIUM CHLORIDE 20 MEQ POWDER FOR ORAL SOLN GTB SCH (09:24)
[2016-11-10] MEDS: BENAZEPRIL 10 MG TAB GTB SCH (09:24)
[2016-11-10] MEDS: LIDOCAINE 5% 35 GM OINT TOP SCH ×3 (09:24→21:59)
[2016-11-10] MEDS: CARBIDOPA/LEVODOPA (25/100) TAB GTB SCH ×3 (09:24→21:59)
[2016-11-10] MEDS: LACTOBACILLUS CHEW TAB GTB SCH ×2 (09:24→21:59)
[2016-11-10] MEDS: LEVETIRACETAM 500 MG TAB PO SCH ×2 (09:24→21:59)
[2016-11-10] MEDS: MULTIVITAMINS THERAPEUTIC TAB PO SCH (09:24)
--- NOTE | 2016-11-10 15:31 | CONS ---
Date/Time of Note Date/Time of Note DATE: 11/10/16 TIME: 15:26 Assessment/Plan Assessment/Plan Additional Assessment/Plan 1. Severe hyponatremia with a sodium of 119 on admission with seizures, possibly acute on chronic hyponatremia versus acute severe hyponatremia.- pt went from hyponatremia to hypernatremia with treatment with 3% saline and one dose of tolvaptan - then Improved to normal today wtih D5W IVF and DDAVP 0.2mg PO x2 dose 10/15/16- on 10/16/16 again Na dropped to 119 s/p Tovlaptan 15 mg PO x1 on 10/18/16-now Na 143- decreased Demeclocycline to 150mg BID on 10/26/2016- again Na dropped to 120 on 10/30/2016- Now Na dropped to128- will give tolvaptan 15mg PO x 1 dose 11/07/16- Na 137 2. Seizures secondary to severe hyponatremia. 3. Sepsis secondary to bilateral pneumonia. 4. Ventilator-dependent respiratory failure, status post tracheostomy, on vent. 5. History of a previous brain tumor, had surgery. Currently, status post ventriculoperitoneal shunt in place. 6. History of a previous cerebellar cerebrovascular accident. PLAN: pt received 3 % saline and tolvaptan one dose on 10/10 and 10/11- went into polyuria, Na went from hyponatremia to hypernatremia- now improved to normal with D5W IVF and 2 dose of DDAVP 0.2mg- again today 10/16- na dropped from 140 to 122- given 3% hypertonic saline for another 12 hr - did not respond well, Na again dropped to 119- One dose of tolvaptan 15 mg X 1 10/18/16- Na dropped to 130 10/22/2016- tolvaptan 15 gram po x 1 dose on 09/21/16- now Na normal, - will decreased demeclocycline to 150mg BID on 10/26/16- Na dropped to 125 10/29/16- increased demeclocycline to 300mg PO BID on 10/29/2016- Na again dropped to 120- will give Tolvaptan 15 mg PO x 1 dose on 10/30/2016- Now Na dropped to128 on 07/16- will give tolvaptan 15mg PO x 1 dose 11/07/16- today Na 137 continue demeclocycline 300mg BID onTube feeding continue demeclocycline 300mg PO BID to avoid use of tolvaptan monitor Na, pt has acute on chronic hyponatremia ventilator care as per pulmonary will follow up Consultation Date/Type/Reason Admit Date/Time Oct 10, 2016 at 13:53 Initial Consult Date 10/10/16 Type of Consultation: NEPHROLOGY Reason for Consultation Hyponatremia Referring Provider: MADDY HOPKINS MD 24 HR Interval Summary Free Text/Dictation pt remained stable,Na 137 Exam/Review of Systems Vital Signs Vitals Vital Signs Date Time Temp Pulse Resp B/P Pulse Ox O2 Delivery O2 Flow Rate FiO2 11/10/16 15:19 98.5 78 21 118/70 97 11/10/16 12:15 30 Intake and Output 11/09/16 11/09/16 11/10/16 15:00 23:00 07:00 Intake Total 850 ml 680 ml Output Total 500 ml 700 ml Balance 350 ml -20 ml Exam HEENT: Tracheostomy site is clear. LUNGS: Bilateral coarse breath sounds with bilateral basilar rales present and lower lobe rhonchi present. HEART: S1, S2, tachycardia, no murmur. ABDOMEN: Soft. G-tube in place. EXTREMITIES: No clubbing, cyanosis, or edema. The patient is very debilitated. , + steve catheter in place Results Result Diagram: 11/10/16 0605 11/10/16 0605 Results 24 hrs Laboratory Tests Test 11/09/16 17:34 11/09/16 20:15 11/10/16 05:32 11/10/16 06:05 Bedside Glucose 156 159 170 Anion Gap 10 Basophils # 0.1 Basophils % 1.0 Blood Urea Nitrogen 18 Calcium Level 8.0 L Carbon Dioxide Level 28 Chloride Level 103 Creatinine 0.31 L Eosinophils # 0.2 Eosinophils % 2.7 Glucose Level 145 Hematocrit 28.2 L Hemoglobin 9.0 L Lymphocytes # 0.9 Lymphocytes % 11.0 L Mean Corpuscular Hemoglobin 29.0 Mean Corpuscular Hemoglobin Concent 31.9 L Mean Corpuscular Volume 91.0 Mean Platelet Volume 9.4 Monocytes # 0.9 Monocytes % 10.5 Neutrophils # 6.1 Neutrophils % 73.6 Nucleated Red Blood Cells # 0.0 Nucleated Red Blood Cells % 0.0 Platelet Count 232 # Potassium Level 4.0 Red Blood Count 3.10 L Red Cell Distribution Width 15.6 H Sodium Level 137 White Blood Count 8.3 Test 11/10/16 12:22 Bedside Glucose 129 Medications Medications Current Medications Ondansetron HCl (Zofran Inj) 4 mg Q6H PRN IV NAUSEA AND/OR VOMITING Last administered on 11/02/16 09:52; Admin Dose 4 MG; Start 10/10/16 at 14:00 Nitroglycerin (Nitroglycerin (Sl Tab) 0.4 Mg) 1 tab Q5M PRN SL CHEST PAIN; Start 10/10/16 at 14:00 Acetaminophen (Tylenol Supp) 650 mg Q4H PRN [place] PAIN LEVEL 1-3 OR FEVER Last administered on 10/30/16 14:05; Admin Dose 650 MG; Start 10/10/16 at 14:00 Morphine Sulfate (morphine) 2 mg Q4H PRN IV PAIN LEVEL 7-10 Last administered on 11/03/16 04:59; Admin Dose 2 MG; Start 10/10/16 at 14:00 Lorazepam (Ativan) 1 mg Q2H PRN IV ANXIETY Last administered on 10/15/16 20:27 ; Admin Dose 1 MG; Start 10/10/16 at 14:00 Docusate Sodium (Colace) 100 mg Q12H PRN PO CONSTIPATION; Start 10/10/16 at 14: 00 Hydralazine HCl (Apresoline) 10 mg Q6H PRN IV ELEVATED BLOOD PRESSURE Last administered on 10/29/16 23:43; Admin Dose 10 MG; Start 10/10/16 at 19:00 Atorvastatin Calcium (Lipitor) 40 mg QHS GTB Last administered on 11/09/16 21: 27; Admin Dose 40 MG; Start 10/15/16 at 21:00 Benazepril HCl (Lotensin) 10 mg DAILY GTB Last administered on 11/10/16 09:24 ; Admin Dose 10 MG; Start 10/15/16 at 12:00 Docusate Sodium (Colace Liquid Cup) 200 mg DAILY PRN GTB CONSTIPATION Last administered on 10/16/16 08:44; Admin Dose 200 MG; Start 10/15/16 at 12:00 Ferrous Sulfate (Feosol Liquid Cup) 330 mg DAILY GTB Last administered on 09:23; Admin Dose 330 MG; Start 10/16/16 at 09:00 Hydralazine HCl (Apresoline) 25 mg Q6H PRN GTB ELEVATED BLOOD PRESSURE Last administered on 10/27/16 12:46; Admin Dose 25 MG; Start 10/15/16 at 12:00 Mineral Oil (Fleet Mineral Oil Enema) 133 ml DAILY PRN [place] CONSTIPATION Last administered on 10/16/16 03:54; Admin Dose 133 ML; Start 10/15/16 at 12:00 Multivitamins Therapeutic (Theragran) 1 tab DAILY PO Last administered on 09:24; Admin Dose 1 TAB; Start 10/15/16 at 12:00 Miscellaneous Information 1 ea NOTE XX ; Start 10/15/16 at 21:30 Glucose (Glutose) 15 gm Q15M PRN PO DECREASED GLUCOSE; Start 10/15/16 at 21:30 Glucose (Glutose) 22.5 gm Q15M PRN PO DECREASED GLUCOSE; Start 10/15/16 at 21: 30 Dextrose (D50w Syringe) 25 ml Q15M PRN IV DECREASED GLUCOSE Last administered on 10/26/16 17:48; Admin Dose 25 ML; Start 10/15/16 at 21:30 Dextrose (D50w Syringe) 50 ml Q15M PRN IV DECREASED GLUCOSE; Start 10/15/16 at 21:30 Glucagon (Glucagen) 1 mg Q15M PRN IM DECREASED GLUCOSE; Start 10/15/16 at 21:30 Glucose (Glutose) 15 gm Q15M PRN BUCCAL DECREASED GLUCOSE; Start 10/15/16 at 21 :30 Metoclopramide HCl (Reglan) 10 mg Q6 IV Last administered on 11/10/16 12:22; Admin Dose 10 MG; Start 10/16/16 at 18:00 Lansoprazole (Prevacid) 30 mg BID@18 GTB Last administered on 11/10/16 05: 47; Admin Dose 30 MG; Start 10/17/16 at 06:00 Carbidopa/Levodopa (Sinemet (25/ 100)) 1 tab TID GTB Last administered on 12:22; Admin Dose 1 TAB; Start 10/16/16 at 21:00 Lidocaine (Lidocaine 5% Oint) 1 applic TID TOP Last administered on 11/10/16 12:23; Admin Dose 1 APPLIC; Start 10/16/16 at 21:00 Insulin Aspart (Novolog Insulin Pen) NOVOLOG *MILD* ALGORI... Q6 SC Last administered on 11/10/16 05:52; Admin Dose 1 UNIT; Start 10/24/16 at 18:00 Lactobacillus Acidoph/Bulgaricus (Floranex) 2 tab BID GTB Last administered on 11/10/16 09:24; Admin Dose 2 TAB; Start 10/24/16 at 21:00 Nystatin (Nystatin Susp) 5 ml QID GTB Last administered on 11/10/16 12:22; Admin Dose 5 ML; Start 10/24/16 at 21:00 Levetiracetam (Keppra) 1,000 mg BID PO Last administered on 11/10/16 09:24; Admin Dose 1,000 MG; Start 10/26/16 at 21:00 Insulin Glargine (Lantus) 10 unit DAILY@20 SC Last administered on 11/09/16 21 :25; Admin Dose 10 UNIT; Start 10/26/16 at 20:00 Demeclocycline HCl (Declomycin) 300 mg BID GTB Last administered on 11/10/16 09:23; Admin Dose 300 MG; Start 10/29/16 at 09:00 Potassium Chloride (Potassium Chloride Pwd/Soln) 40 meq DAILY GTB Last administered on 11/10/16 09:24; Admin Dose 40 MEQ; Start 10/31/16 at 09:00 Lactulose (Enulose) 30 gm TID GTB Last administered on 11/10/16 12:23; Admin Dose 30 GM; Start 11/04/16 at 21:00 LISSA PARK MD Nov 10, 2016 15:30
--- NOTE | 2016-11-10 15:37 | PN ---
DATE: 11/10/2016 SUBJECTIVE: This is a follow up note. The patient is stable this morning. PHYSICAL EXAMINATION: VITAL SIGNS: Temperature 98, pulse is 60, blood pressure 134/87 on 30% FIO2. NECK: Trach site clean and intact. CARDIAC: S1, S2, no added sounds or murmurs. CHEST: Diminished air entry bilaterally. ABDOMEN: Soft, nontender. No guarding or rebound. EXTREMITIES: No cyanosis, clubbing, edema. NEUROLOGIC: Grossly intact. No focal deficits. LABORATORY DATA: White count 8.3, hemoglobin 9, platelets of 232. Chemistry within normal limits. IMPRESSION AND PLAN: 1. Vent dependent respiratory failure, currently stable. 2. Syndrome of inappropriate antidiuretic hormone, resolved. 3. Dysphagia with percutaneous endoscopic gastrostomy tube, stable. 4. History of urinary tract infection now improved. 5. From a pulmonary standpoint, the patient can be discharged back to intermediate facility. Dictated By: JOSE MENA/PIPER Conf#: [id number] DID#: [id number]
--- NOTE | 2016-11-10 20:49 | DS ---
DATE OF ADMISSION: 10/10/2016 DATE OF DISCHARGE: 11/10/2016 FINAL DIAGNOSES: 1. Persistent hyponatremia secondary to syndrome of inappropriate antidiuretic hormone. 2. Dysphagia with G-tube. 3. Status post aspiration. 4. Sepsis secondary to urinary tract infection and healthcare-acquired pneumonia on admission. 5. Ventilator dependent respiratory failure. 6. History of brainstem glioma. 7. Status post ventriculoperitoneal shunt placement. 8. Chronic encephalopathy. 9. Seizure disorder. 10. Hypertension. 11. History of cerebrovascular accident. 12. Bedridden status. BRIEF HISTORY: The patient is an unfortunate 51-year-old gentleman with medical history of CCA, CVA , brain cancer, chronic encephalopathy, history of seizures, history of anemia, status post [employer]URE [employer] shunt placement. The patient was admitted from alf facility due to seizure activities noted at alf facility. The patient was treated with Ativan with seizure ____ at the emergency room. However, patient was found to have sodium was 119 and patient was admitted for further evalu ation and management. HOSPITAL COURSE: The patient was evaluated by Dr. Toney in neurology consultation. The pat ient was placed on Keppra. The patient also was evaluated by Dr. Kendall in neurosurgery consultati on. The patient had a clinical progression of brainstem glioma in spite of chemo and radiation. Ap parently, patient was evaluated previously at [facility] in [facility] and the tumor was found i noperable. The patient had persistent hypernatremia and was evaluated by Dr. Tovar in nephrology co nsultation. The patient was started on tolvaptan and had a response of sodium being elevated. The patient was closely monitored. The patient's electrolytes were closely monitored. The patient was later on switched to demeclocycline with relatively good response. The patient was also followed by Dr. Clarke's group in pulmonology consultation. Continue vent management. The patient had multip le episodes of vomiting and was not able to tolerate G-tube feeding. The patient was evaluated and followed by Dr. Mas in gastroenterology consultation. The patient had multiple tests and abdomin al CT that does not show any obstruction. The patient was started on Reglan and currently tolerates G-tube feedings at a rate of 50 mL per hour with no episodes of emesis. The patient was also evalu ated and followed by Dr. Sales in infectious disease consultation. The patient has completed treat ment for urinary tract infection and pneumonia. The patient's leukocytosis resolved. The patient c ontinues to be obtunded. Multiple family conferences were held with the patient's discussing marce drew's condition and prognosis. The patient is DNR. However, the patient's continued with G -tube feeding and ventilator support. The patient's overall condition is stabilized and the patient will be discharged to a alf facility. CONDITION ON DISCHARGE: Hemodynamically stable. ACTIVITY: As patient tolerates. DISCHARGE DIET: Continue current G-tube feedings at 50 mL per hour with goal being 65 mL per hour. Will gradually increase at alf facility. DISCHARGE MEDICATIONS: 1. Tylenol p.r.n. 2. Lipitor. 3. Benazepril. 4. Demeclocycline 300 mg G-tube b.i.d. 5. Colace. 6. Ferrous sulfate. 7. Hypoglycemia protocol. 8. Protein supplements. 9. Hydralazine p.r.n. for systolic blood pressure above 160. 10. NovoLog per mild algorithm sliding scale. 11. Lantus 10 units subcu at bedtime. 12. Atrovent and albuterol q.6h. p.r.n. 13. Floranex. 14. Lactulose p.r.n. 15. Prevacid. 16. Keppra 1000 mg p.o. b.i.d. 17. Sinemet 1 tablet G-tube 3 times a day. 18. Ativan 1 mg. 19. Mineral oil p.r.n. for constipation. 20. Multivitamins. 21. Nystatin 5 mL G-tube 4 times daily for 2 more days. 22. Zofran p.r.n. for nausea. 23. Reglan 10 mg via G-tube q.6h. routine. Interdisciplinary care was established for this patient. Plan of care was discussed with Dr. Neelima aponte. Dictated By: ALTHEA ACOSTA STRUCTURAL ENGINEERING DRAFTING OFFICER for JENELLE COLBY MD SR/NTS Conf#: [id number] DID#: [id number] CC: MADDY HOPKINS MD;*End*
[2016-11-10] MEDS: ATORVASTATIN 40 MG TAB GTB SCH (21:59)
[2016-11-10] MEDS: INSULIN GLARGINE [LANtus] 3 ML PEN SC SCH (22:01)
[2016-11-11] VITALS (13 sets, daily range): BP systolic 103–136; BP diastolic 60–71; PULSE 69–88; RESP 14–22
[2016-11-11] MEDS: METOCLOPRAMIDE 10 MG INJ IV SCH ×2 (00:32→06:13)
[2016-11-11] MEDS: INSULIN ASPART [NOVOLOG] 3 ML PEN SC SCH ×3 (00:33→12:00)
[2016-11-11] MEDS: LANSOPRAZOLE 30 MG CAP GTB SCH (06:13)
[2016-11-11] MEDS: LACTULOSE 30ML CUP GTB SCH (09:40)
[2016-11-11] MEDS: NYSTATIN SUSP 5 ML CUP GTB SCH (09:40)
[2016-11-11] MEDS: FERROUS SULFATE 60 MG/ML 5ML CUP GTB SCH (09:40)
[2016-11-11] MEDS: POTASSIUM CHLORIDE 20 MEQ POWDER FOR ORAL SOLN GTB SCH (09:40)
[2016-11-11] MEDS: LEVETIRACETAM 500 MG TAB PO SCH (09:40)
--- NOTE | 2016-11-11 09:40 | PN ---
Date/Time of Note Date/Time of Note DATE: 11/11/16 TIME: 09:38 Assessment/Plan VTE Prophylaxis VTE Prophylaxis Intervention: other (per pmd) Lines/Catheters IV Catheter Type (from Nrsg): Saline Lock Urinary Cath still in place: Yes Reason Cath still needed: other (indicate) (per pmd) Assessment/Plan Chief Complaint/Hosp Course gi stable Problems: Subjective 24 Hr Interval Summary Free Text/Dictation pt non verbal s/p trach no emesis Exam/Review of Systems Vital Signs Vitals Vital Signs Date Time Temp Pulse Resp B/P Pulse Ox O2 Delivery O2 Flow Rate FiO2 11/11/16 09:28 79 11/11/16 09:17 14 99 30 11/11/16 06:50 98.6 136/71 Intake and Output 11/10/16 11/10/16 11/11/16 15:00 23:00 07:00 Intake Total 850 ml 780 ml Output Total 1000 ml 700 ml Balance -150 ml 80 ml Exam pt s/p trach non verbal abd soft g tube functioning well Results Result Diagram: 11/10/1660411/10/16604 Results 24 hrs Laboratory Tests Test 11/10/16 12:22 11/10/16 18:07 11/10/16 20:32 11/11/16 06:13 Bedside Glucose 129 168 165 135 Medications Medications Current Medications Ondansetron HCl (Zofran Inj) 4 mg Q6H PRN IV NAUSEA AND/OR VOMITING Last administered on 11/02/16 09:52; Admin Dose 4 MG; Start 10/10/16 at 14:00 Nitroglycerin (Nitroglycerin (Sl Tab) 0.4 Mg) 1 tab Q5M PRN SL CHEST PAIN; Start 10/10/16 at 14:00 Acetaminophen (Tylenol Supp) 650 mg Q4H PRN SC PAIN LEVEL 1-3 OR FEVER Last administered on 10/30/16 14:05; Admin Dose 650 MG; Start 10/10/16 at 14:00 Morphine Sulfate (morphine) 2 mg Q4H PRN IV PAIN LEVEL 7-10 Last administered on 11/03/16 04:59; Admin Dose 2 MG; Start 10/10/16 at 14:00 Lorazepam (Ativan) 1 mg Q2H PRN IV ANXIETY Last administered on 10/15/16 20:27 ; Admin Dose 1 MG; Start 10/10/16 at 14:00 Docusate Sodium (Colace) 100 mg Q12H PRN PO CONSTIPATION; Start 10/10/16 at 14: 00 Hydralazine HCl (Apresoline) 10 mg Q6H PRN IV ELEVATED BLOOD PRESSURE Last administered on 10/29/16 23:43; Admin Dose 10 MG; Start 10/10/16 at 19:00 Atorvastatin Calcium (Lipitor) 40 mg QHS GTB Last administered on 11/10/16 21: 59; Admin Dose 40 MG; Start 10/15/16 at 21:00 Benazepril HCl (Lotensin) 10 mg DAILY GTB Last administered on 11/10/16 09:24 ; Admin Dose 10 MG; Start 10/15/16 at 12:00 Docusate Sodium (Colace Liquid Cup) 200 mg DAILY PRN GTB CONSTIPATION Last administered on 10/16/16 08:44; Admin Dose 200 MG; Start 10/15/16 at 12:00 Ferrous Sulfate (Feosol Liquid Cup) 330 mg DAILY GTB Last administered on 09:23; Admin Dose 330 MG; Start 10/16/16 at 09:00 Hydralazine HCl (Apresoline) 25 mg Q6H PRN GTB ELEVATED BLOOD PRESSURE Last administered on 10/27/16 12:46; Admin Dose 25 MG; Start 10/15/16 at 12:00 Mineral Oil (Fleet Mineral Oil Enema) 133 ml DAILY PRN SC CONSTIPATION Last administered on 10/16/16 03:54; Admin Dose 133 ML; Start 10/15/16 at 12:00 Multivitamins Therapeutic (Theragran) 1 tab DAILY PO Last administered on 09:24; Admin Dose 1 TAB; Start 10/15/16 at 12:00 Miscellaneous Information 1 ea NOTE XX ; Start 10/15/16 at 21:30 Glucose (Glutose) 15 gm Q15M PRN PO DECREASED GLUCOSE; Start 10/15/16 at 21:30 Glucose (Glutose) 22.5 gm Q15M PRN PO DECREASED GLUCOSE; Start 10/15/16 at 21: 30 Dextrose (D50w Syringe) 25 ml Q15M PRN IV DECREASED GLUCOSE Last administered on 10/26/16 17:48; Admin Dose 25 ML; Start 10/15/16 at 21:30 Dextrose (D50w Syringe) 50 ml Q15M PRN IV DECREASED GLUCOSE; Start 10/15/16 at 21:30 Glucagon (Glucagen) 1 mg Q15M PRN IM DECREASED GLUCOSE; Start 10/15/16 at 21:30 Glucose (Glutose) 15 gm Q15M PRN BUCCAL DECREASED GLUCOSE; Start 10/15/16 at 21 :30 Metoclopramide HCl (Reglan) 10 mg Q6 IV Last administered on 11/11/16 06:13; Admin Dose 10 MG; Start 10/16/16 at 18:00 Lansoprazole (Prevacid) 30 mg BID@,18 GTB Last administered on 11/11/16 06: 13; Admin Dose 30 MG; Start 10/17/16 at 06:00 Carbidopa/Levodopa (Sinemet (25/ 100)) 1 tab TID GTB Last administered on 21:59; Admin Dose 1 TAB; Start 10/16/16 at 21:00 Lidocaine (Lidocaine 5% Oint) 1 applic TID TOP Last administered on 11/10/16 21:59; Admin Dose 1 APPLIC; Start 10/16/16 at 21:00 Insulin Aspart (Novolog Insulin Pen) NOVOLOG *MILD* ALGORI... Q6 SC Last administered on 11/11/16 00:33; Admin Dose 1 UNIT; Start 10/24/16 at 18:00 Lactobacillus Acidoph/Bulgaricus (Floranex) 2 tab BID GTB Last administered on 11/10/16 21:59; Admin Dose 2 TAB; Start 10/24/16 at 21:00 Nystatin (Nystatin Susp) 5 ml QID GTB Last administered on 11/10/16 21:58; Admin Dose 5 ML; Start 10/24/16 at 21:00 Levetiracetam (Keppra) 1,000 mg BID PO Last administered on 11/10/16 21:59; Admin Dose 1,000 MG; Start 10/26/16 at 21:00 Insulin Glargine (Lantus) 10 unit DAILY@20 SC Last administered on 11/10/16 22 :01; Admin Dose 10 UNIT; Start 10/26/16 at 20:00 Demeclocycline HCl (Declomycin) 300 mg BID GTB Last administered on 11/10/16 21:59; Admin Dose 300 MG; Start 10/29/16 at 09:00 Potassium Chloride (Potassium Chloride Pwd/Soln) 40 meq DAILY GTB Last administered on 11/10/16 09:24; Admin Dose 40 MEQ; Start 10/31/16 at 09:00 Lactulose (Enulose) 30 gm TID GTB Last administered on 11/10/16 21:58; Admin Dose 30 GM; Start 11/04/16 at 21:00 DARNELL HERNANDEZ MD Nov 11, 2016 09:40
[2016-11-11] MEDS: BENAZEPRIL 10 MG TAB GTB SCH (09:41)
[2016-11-11] MEDS: MULTIVITAMINS THERAPEUTIC TAB PO SCH (09:41)
[2016-11-11] MEDS: LACTOBACILLUS CHEW TAB GTB SCH (09:41)
[2016-11-11] MEDS: DEMECLOCYCLINE 150 MG TAB GTB SCH (09:41)
[2016-11-11] MEDS: CARBIDOPA/LEVODOPA (25/100) TAB GTB SCH (09:41)
[2016-11-11] MEDS: LIDOCAINE 5% 35 GM OINT TOP SCH (09:43)
--- NOTE | 2016-11-11 10:05 | PN ---
DATE: CHIEF COMPLAINT: History of anemia. HISTORY OF PRESENT ILLNESS AND OBJECTIVE FINDINGS: The patient had upper endoscopy done which showe d evidence of gastritis. He is not showing any active bleeding. Stool is brown. PHYSICAL EXAMINATION: GENERAL: He is in a vegetative status, status post tracheostomy. VITAL SIGNS: Pulse is 82, blood pressure 102/70. CARDIOVASCULAR: Heart sounds well heard. RESPIRATORY: Normal breath sounds. ABDOMEN: Showing G-tube in place. LABORATORY WORKUP: Hemoglobin was 9.0 yesterday. CLINICAL IMPRESSION: He has got gastritis, G-tube in place, no active bleeding noted. PLAN: The patient is being discharged. If the patient comes back with anemia, colonoscopy will be performed. Dictated By: DARNELL BRITO/PIPER Conf#: [id number] DID#: [id number] CC: DARNELL HERNANDEZ MD;*EndCC*
--- NOTE | 2016-11-11 11:44 | CONS ---
Date/Time of Note Date/Time of Note DATE: 11/11/16 TIME: 11:42 Assessment/Plan Assessment/Plan Additional Assessment/Plan 1. Severe hyponatremia with a sodium of 119 on admission with seizures, possibly acute on chronic hyponatremia versus acute severe hyponatremia.- pt went from hyponatremia to hypernatremia with treatment with 3% saline and one dose of tolvaptan - then Improved to normal today wtih D5W IVF and DDAVP 0.2mg PO x2 dose 10/15/16- on 10/16/16 again Na dropped to 119 s/p Tovlaptan 15 mg PO x1 on 10/18/16-now Na 143- decreased Demeclocycline to 150mg BID on 10/26/2016- again Na dropped to 120 on 10/30/2016- Now Na dropped to128- will give tolvaptan 15mg PO x 1 dose 11/07/16- Na 137 on 11/10/16- no labs today to review 2. Seizures secondary to severe hyponatremia. 3. Sepsis secondary to bilateral pneumonia. 4. Ventilator-dependent respiratory failure, status post tracheostomy, on vent. 5. History of a previous brain tumor, had surgery. Currently, status post ventriculoperitoneal shunt in place. 6. History of a previous cerebellar cerebrovascular accident. PLAN: pt received 3 % saline and tolvaptan one dose on 10/10 and 10/11- went into polyuria, Na went from hyponatremia to hypernatremia- now improved to normal with D5W IVF and 2 dose of DDAVP 0.2mg- again today 10/16- na dropped from 140 to 122- given 3% hypertonic saline for another 12 hr - did not respond well, Na again dropped to 119- One dose of tolvaptan 15 mg X 1 10/18/16- Na dropped to 130 10/22/2016- tolvaptan 15 gram po x 1 dose on 09/21/16- now Na normal, - will decreased demeclocycline to 150mg BID on 10/26/16- Na dropped to 125 10/29/16- increased demeclocycline to 300mg PO BID on 10/29/2016- Na again dropped to 120- will give Tolvaptan 15 mg PO x 1 dose on 10/30/2016- Now Na dropped to128 on 07/16- will give tolvaptan 15mg PO x 1 dose 11/07/16- Na 137 on 11/10/16- no labs today to review continue demeclocycline 300mg BID onTube feeding continue demeclocycline 300mg PO BID to avoid use of tolvaptan monitor Na, pt has acute on chronic hyponatremia ventilator care as per pulmonary will follow up Consultation Date/Type/Reason Admit Date/Time Oct 10, 2016 at 13:53 Initial Consult Date 10/10/16 Type of Consultation: NEPHROLOGY Referring Provider: MADDY HOPKINS MD 24 HR Interval Summary Free Text/Dictation no labs today to review, yesterday Na was normal, Bp stable Exam/Review of Systems Vital Signs Vitals Vital Signs Date Time Temp Pulse Resp B/P Pulse Ox O2 Delivery O2 Flow Rate FiO2 11/11/16 11:00 81 14 98 30 11/11/16 10:59 97.8 115/65 Intake and Output 11/10/16 11/10/16 11/11/16 15:00 23:00 07:00 Intake Total 850 ml 780 ml Output Total 1000 ml 700 ml Balance -150 ml 80 ml Exam HEENT: Tracheostomy site is clear. LUNGS: Bilateral coarse breath sounds with bilateral basilar rales present and lower lobe rhonchi present. HEART: S1, S2, tachycardia, no murmur. ABDOMEN: Soft. G-tube in place. EXTREMITIES: No clubbing, cyanosis, or edema. The patient is very debilitated. , + steve catheter in place Results Result Diagram: 11/10/16 0611/10/16 0605 Results 24 hrs Laboratory Tests Test 11/10/16 12:22 11/10/16 18:07 11/10/16 20:32 11/11/16 06:13 Bedside Glucose 129 168 165 135 Medications Medications Current Medications Ondansetron HCl (Zofran Inj) 4 mg Q6H PRN IV NAUSEA AND/OR VOMITING Last administered on 11/02/16t 09:52; Admin Dose 4 MG; Start 10/10/16 at 14:00 Nitroglycerin (Nitroglycerin (Sl Tab) 0.4 Mg) 1 tab Q5M PRN SL CHEST PAIN; Start 10/10/16 at 14:00 Acetaminophen (Tylenol Supp) 650 mg Q4H PRN [place] PAIN LEVEL 1-3 OR FEVER Last administered on 10/30/16 14:05; Admin Dose 650 MG; Start 10/10/16 at 14:00 Morphine Sulfate (morphine) 2 mg Q4H PRN IV PAIN LEVEL 7-10 Last administered on 11/03/16 04:59; Admin Dose 2 MG; Start 10/10/16 at 14:00 Lorazepam (Ativan) 1 mg Q2H PRN IV ANXIETY Last administered on 10/15/16 20:27 ; Admin Dose 1 MG; Start 10/10/16 at 14:00 Docusate Sodium (Colace) 100 mg Q12H PRN PO CONSTIPATION; Start 10/10/16 at 14: 00 Hydralazine HCl (Apresoline) 10 mg Q6H PRN IV ELEVATED BLOOD PRESSURE Last administered on 10/29/16 23:43; Admin Dose 10 MG; Start 10/10/16 at 19:00 Atorvastatin Calcium (Lipitor) 40 mg QHS GTB Last administered on 11/10/16 21: 59; Admin Dose 40 MG; Start 10/15/16 at 21:00 Benazepril HCl (Lotensin) 10 mg DAILY GTB Last administered on 11/11/16 09:41 ; Admin Dose 10 MG; Start 10/15/16 at 12:00 Docusate Sodium (Colace Liquid Cup) 200 mg DAILY PRN GTB CONSTIPATION Last administered on 10/16/16 08:44; Admin Dose 200 MG; Start 10/15/16 at 12:00 Ferrous Sulfate (Feosol Liquid Cup) 330 mg DAILY GTB Last administered on 09:40; Admin Dose 330 MG; Start 10/16/16 at 09:00 Hydralazine HCl (Apresoline) 25 mg Q6H PRN GTB ELEVATED BLOOD PRESSURE Last administered on 10/27/16 12:46; Admin Dose 25 MG; Start 10/15/16 at 12:00 Mineral Oil (Fleet Mineral Oil Enema) 133 ml DAILY PRN [place] CONSTIPATION Last administered on 10/16/16 03:54; Admin Dose 133 ML; Start 10/15/16 at 12:00 Multivitamins Therapeutic (Theragran) 1 tab DAILY PO Last administered on 09:41; Admin Dose 1 TAB; Start 10/15/16 at 12:00 Miscellaneous Information 1 ea NOTE XX ; Start 10/15/16 at 21:30 Glucose (Glutose) 15 gm Q15M PRN PO DECREASED GLUCOSE; Start 10/15/16 at 21:30 Glucose (Glutose) 22.5 gm Q15M PRN PO DECREASED GLUCOSE; Start 10/15/16 at 21: 30 Dextrose (D50w Syringe) 25 ml Q15M PRN IV DECREASED GLUCOSE Last administered on 10/26/16 17:48; Admin Dose 25 ML; Start 10/15/16 at 21:30 Dextrose (D50w Syringe) 50 ml Q15M PRN IV DECREASED GLUCOSE; Start 10/15/16 at 21:30 Glucagon (Glucagen) 1 mg Q15M PRN IM DECREASED GLUCOSE; Start 10/15/16 at 21:30 Glucose (Glutose) 15 gm Q15M PRN BUCCAL DECREASED GLUCOSE; Start 10/15/16 at 21 :30 Metoclopramide HCl (Reglan) 10 mg Q6 IV Last administered on 11/11/16 06:13; Admin Dose 10 MG; Start 10/16/16 at 18:00 Lansoprazole (Prevacid) 30 mg BID@,18 GTB Last administered on 11/11/16 06: 13; Admin Dose 30 MG; Start 10/17/16 at 06:00 Carbidopa/Levodopa (Sinemet (25/ 100)) 1 tab TID GTB Last administered on 09:41; Admin Dose 1 TAB; Start 10/16/16 at 21:00 Lidocaine (Lidocaine 5% Oint) 1 applic TID TOP Last administered on 11/11/16 09:43; Admin Dose 1 APPLIC; Start 10/16/16 at 21:00 Insulin Aspart (Novolog Insulin Pen) NOVOLOG *MILD* ALGORI... Q6 SC Last administered on 11/11/16 00:33; Admin Dose 1 UNIT; Start 10/24/16 at 18:00 Lactobacillus Acidoph/Bulgaricus (Floranex) 2 tab BID GTB Last administered on 11/11/16 09:41; Admin Dose 2 TAB; Start 10/24/16 at 21:00 Nystatin (Nystatin Susp) 5 ml QID GTB Last administered on 11/11/16 09:40; Admin Dose 5 ML; Start 10/24/16 at 21:00 Levetiracetam (Keppra) 1,000 mg BID PO Last administered on 11/11/16 09:40; Admin Dose 1,000 MG; Start 10/26/16 at 21:00 Insulin Glargine (Lantus) 10 unit DAILY@20 SC Last administered on 11/10/16 22 :01; Admin Dose 10 UNIT; Start 10/26/16 at 20:00 Demeclocycline HCl (Declomycin) 300 mg BID GTB Last administered on 11/11/16 09:41; Admin Dose 300 MG; Start 10/29/16 at 09:00 Potassium Chloride (Potassium Chloride Pwd/Soln) 40 meq DAILY GTB Last administered on 11/11/16 09:40; Admin Dose 40 MEQ; Start 10/31/16 at 09:00 Lactulose (Enulose) 30 gm TID GTB Last administered on 11/11/16 09:40; Admin Dose 30 GM; Start 11/04/16 at 21:00 LISSA PARK MD Nov 11, 2016 11:43
--- NOTE | 2016-11-11 14:10 | PN ---
DATE: 11/11/2016 SUBJECTIVE: This patient is stable this morning. No new events. PHYSICAL EXAMINATION: VITAL SIGNS: Temperature 98, pulse is 69, blood pressure 115/65, O2 saturation 96%, FIO2 of 30%. NECK: Trach site clean and intact. CARDIAC: S1, S2, no added sounds or murmurs. CHEST: Diminished air entry bilaterally. ABDOMEN: Soft, nontender. No guarding or rebound. EXTREMITIES: No cyanosis, clubbing, edema. NEUROLOGIC: Generalized weakness. LABORATORY DATA: Not drawn today. IMPRESSION AND PLAN: Status post respiratory failure. Continues mechanical ventilation for [facility] are-associated pneumonia with a history of encephalopathy. The patient should continue vent support , antibiotics, tube feeding, DVT and GI prophylaxis and discharge planning. Dictated By: JOSE MENA/PIPER Conf#: [id number] DID#: [id number]
--- NOTE | 2016-11-11 16:05 | PN ---
Date/Time of Note Date/Time of Note DATE: 11/11/16 TIME: 15:58 Assessment/Plan VTE Prophylaxis VTE Prophylaxis Intervention: SCD's Lines/Catheters IV Catheter [facility]from [facility] Saline Lock Urinary Cath still in place: Yes Reason Cath still needed: urinary retention Assessment/Plan Chief Complaint/Hosp Course ASSESSMENT AND PLAN: - Persistent Hyponatremia 2 SIADH. Patient is followed by Dr. Tovar in nephrology consultation. Continue demeclocycline. - Dysphagia with PEG. Dr. Mas is following gastroenterology consultation. - Status post aspiration, status post treatment. - Sepsis secondary to urinary tract infection and healthcare-acquired pneumonia. Status post treatment. patient is followed by Dr. Sales in infectious disease consultation. - Ventilator dependent respiratory failure. Dr. Unger is following from pulmonology standpoint. Continue bronchodilators and ventilatory support. 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 - Seizure disorder. Continue Keppra. - Hypertension, continue benazepril and hydralazine. - History of cerebrovascular accident. Continue sequential compression device for deep venous thrombosis prophylaxis and Pepcid for peptic ulcer disease prophylaxis. Further recommendations based on clinical course. Plan of care discussed with Dr. Desir. Problems: Subjective 24 Hr Interval Summary Free Text/Dictation D/c was held yesterday due to slightly low BP, BP is stable in AM, OK to d/c today. Exam/Review of Systems Vital Signs Vitals Vital Signs Date Time Temp Pulse Resp B/P Pulse Ox O2 Delivery O2 Flow Rate FiO2 11/11/16 12:48 69 11/11/16 11:00 14 98 30 11/11/16 10:59 97.8 115/65 Intake and Output 11/10/16 11/10/16 11/11/16 15:00 23:00 07:00 Intake Total 850 ml 780 ml Output Total 1000 ml 700 ml Balance -150 ml 80 ml Exam GENERAL: This is a well-developed male on ventilator support, does not respond to verbal internal stimuli. HEENT: Head is atraumatic, normocephalic. Pupils equal, round, reactive to light and accommodation. NECK: Supple. Tracheostomy at the base of the neck. CHEST: Scattered rhonchi bilaterally, slightly diminished at the bases. No wheezes noted. HEART: Normal S1, S2. No murmurs, gallops, clicks, rubs noted. ABDOMEN: Protuberant, soft, nondistended, nontender. Bowel sounds present. EXTREMITIES: Mild edema. There is no clubbing or cyanosis. Pulses equal bilaterally 2+. SKIN: There is no rash, petechiae noted. NEUROLOGIC: The patient is obtunded. Results Result Diagram: 11/10/16 0605 11/10/16 0605 Results 24 hrs Laboratory Tests Test 11/10/16 18:07 11/10/16 20:32 11/11/16 06:13 11/11/16 12:51 Bedside Glucose 168 165 135 140 ALTHEA ACOSTA Nov 11, 2016 16:05
== END 2016-11-11 12:57 | DRG 870 ==
LOC: E/R 11:09 → ICU 13:53 → TEL 10-18 08:26
PROVIDERS: ADMIT Student in an Organized Health Care Education/Training Program; ATTEND Internal Medicine
PROC: 5A1955Z Respiratory Ventilation, Greater than 96 Consecutive Hours (ICD-10-PCS; principal; 2016-10-10)
DX: A41.9 Sepsis, unspecified organism (principal); J18.9 Pneumonia, unspecified organism; Z99.11 Dependence on respirator [ventilator] status; J96.11 Chronic respiratory failure with hypoxia; E87.0 Hyperosmolality and hypernatremia; E22.2 Syndrome of inappropriate secretion of antidiuretic hormone; Z93.0 Tracheostomy status; T83.511A Infection and inflammatory reaction due to indwelling urethral catheter, initial encounter; N39.0 Urinary tract infection, site not specified; G40.802 Other epilepsy, not intractable, without status epilepticus; C71.9 Malignant neoplasm of brain, unspecified; Y95 Nosocomial condition; E87.8 Other disorders of electrolyte and fluid balance, not elsewhere classified; D63.8 Anemia in other chronic diseases classified elsewhere; Z66 Do not resuscitate; E87.6 Hypokalemia; R11.10 Vomiting, unspecified; E11.9 Type 2 diabetes mellitus without complications; B95.2 Enterococcus as the cause of diseases classified elsewhere; Z74.01 Bed confinement status; Y84.6 Urinary catheterization as the cause of abnormal reaction of the patient, or of later complication, without mention of misadventure at the time of the procedure; Y92.128 Other place in nursing home as the place of occurrence of the external cause; Z86.73 Personal history of transient ischemic attack (TIA), and cerebral infarction without residual deficits; Z93.1 Gastrostomy status
CPT/HCPCS: 36415; 36600; 70450; 70553; 71010; 74000; 74178; 80048; 80053; 80202; 81001; 81003; 82150; 82533; 82550; 82553; 82607; 82746; 82803; 82962; 83036; 83605; 83690; 83735; 83930; 83935; 84100; 84132; 84155; 84295; 84300; 84439; 84443; 84450; 84460; 84484; 84560; 85025; 85610; 85730; 87040; 87070; 87086; 89190; 93005; 94002; 94003; 94640; 94799; 95819; 96374; 96375; C9113; J0360; J0690; J0692; J0744; J1815; J1953; J1956; J2060; J2270; J2405; J2543; J2765; J3370; J3475; J3480; J7030; J7050; Q9967

== ENCOUNTER 2016-11-18 00:13 | Inpatient (IN) | payer MEDICARE, OTHER ==
[~2016-11-18] VITALS: Ht 162.6 cm; Wt 77.3 kg
[~2016-11-18 00:13] MED LIST: ACET-2047 GTB; ASPI81TA3 GTB; ATOR40TA68 GTB; BENA10TA48 GTB; FAMO20TA18 GTB; FLEETOIL PR; GLUC1VIA6 IJ; HYDR-3671 GTB; INSU100V3 IJ; IPRA3AMP INHALATION; LEVEM SC; METO-448 GTB; MULTI PO; ONDA-43 GTB; PROT946L GTB; SODI1TAB2 GTB; TAMS-14 GTB; UDCOL GTB; UDFER GTB; UDKCL40 GTB
[2016-11-18 01:24] LABS: ADD SCAN DIFF NO
[2016-11-18 01:26] LABS: ABNORMAL IP MESSAGE 1; BASOPHIL # 0.1 10^3/ul (0.0-0.1); BASOPHILS % 1.3 % (0.0-2.0); EOSINOPHILS # 0.2 10^3/ul (0.0-0.5); EOSINOPHILS % 3.4 % (0.0-7.0); HEMATOCRIT 27.1 % (42.0-52.0); HEMOGLOBIN 9.4 g/dl (14.0-18.0); LYMPHOCYTES # 0.6 10^3/ul (0.8-2.9); LYMPHOCYTES % 11.1 % (15.0-51.0); MEAN CORPUSCULAR HGB CONC 34.7 g/dl (32.0-37.0); MEAN CORPUSCULAR VOLUME 86.6 fl (82.0-101.0); MEAN PLATELET VOLUME 8.9 fl (7.4-10.4); MONOCYTE # 0.7 10^3/ul (0.3-0.9); MONOCYTES % 13.3 % (0.0-11.0); NEUTROPHIL # 3.7 10^3/ul (1.6-7.5); NEUTROPHILS % 68.6 % (39.0-77.0); PLATELET COUNT 221 10^3/UL (140-415); RED BLOOD COUNT 3.13 10^6/ul (4.70-6.10); RED CELL DISTRIBUTION WIDTH 15.8 % (11.5-14.5); WHITE BLOOD COUNT 5.3 10^3/ul (4.8-10.8)
[2016-11-18 01:35] LABS: ALBUMIN 2.7 g/dl (3.3-4.9); CHLORIDE 91 mmol/L (97-110); POTASSIUM 4.4 mmol/L (3.5-5.1); SODIUM 124 mmol/L (135-144)
[2016-11-18 01:37] LABS: CREATININE 0.27 mg/dl (0.61-1.24)
[2016-11-18 01:38] LABS: ALANINE AMINOTRANSFERASE 94 IU/L (13-69); ALKALINE PHOSPHATASE 168 IU/L (42-121); ANION GAP 11 (8-16); ASPARTATE AMINO TRANSFERASE 139 IU/L (15-46); BILIRUBIN,INDIRECT 0.1 mg/dl (0-1.1); BILIRUBIN,TOTAL 0.1 mg/dl (0.2-1.3); BLOOD UREA NITROGEN 11 mg/dl (7-20); CARBON DIOXIDE 26 mmol/L (21-31); GLUCOSE 122 mg/dl (70-220); TOTAL PROTEIN 5.7 g/dl (6.1-8.1)
[2016-11-18 01:39] LABS: CALCIUM 7.8 mg/dl (8.4-10.2)
[2016-11-18 01:44] LABS: INR 0.95; PROTIME 12.7 Sec (12.2-14.2)
[2016-11-18 01:45] LABS: PARTIAL THROMBOPLASTIN TIME 42.4 Sec (25.0-35.0)
--- NOTE | 2016-11-18 01:45 | RADRPT ---
PROCEDURE: XR Chest. CLINICAL INDICATION: Chest pain. TECHNIQUE: Single frontal view of the chest was obtained COMPARISON: Chest dated 10/25/2016. FINDINGS: Tracheostomy tube in place. Right [employer] shunt catheter overlies the right hemithorax. Cardiomegaly. Bilateral lung base atelectasis versus airspace disease, left greater than right, with bilateral sma ll pleural effusions, left greater than right. Findings are new at the right lung base and increased at the left lung base. There is no pneumothorax. IMPRESSION: 1. Bilateral lung base atelectasis versus airspace disease, left greater than right. 2. Bilateral small pleural effusions, left greater than right. RPTAT: UU Physician Sonido Date Time Electronically viewed and signed by Physician Sonido on 11/18/2016 01:45 RS/
[2016-11-18 01:47] LABS: B-TYPE NATRIURETIC PEPTIDE 721 PG/ML (0-125)
[2016-11-18 02:12] LABS: TROPONIN-I < 0.012 ng/ml (0.00-0.12)
[2016-11-18] MEDS ORDERED: SOD CHLORIDE 0.9% 500 ML IV ONE ×2 (02:30→11:00)
[2016-11-18 09:00] VITALS: TEMP 98.5
--- NOTE | 2016-11-18 11:19 | CONS ---
DATE OF ADMISSION: 11/18/2016 DATE OF CONSULTATION: 11/18/2016 TYPE OF CONSULTATION: Nephrology. REFERRING PHYSICIAN: Cleveland Desir MD REASON FOR CONSULTATION: Severe hyponatremia, possibly acute on chronic hyponatremia, possible SIAD H. HISTORY OF PRESENT ILLNESS: This is a 51-year-old male who has chronic respiratory failure, status post tracheostomy, on ventilator, who was at the [facility]. The missael ent was recently admitted from 10/10/2016 to 11/11/2016 for sepsis. At that time, he was evaluated by me for possible severe hyponatremia. On his last admission, his severe hyponatremia was associat ed with seizures. The patient received tolvaptan intermittently on that admission. He went into no rmal urine output with a polyuric phase. The sodium bumped up to 161. Subsequently, received DDAVP and has been dropped down in the low normal. The patient received every 3 or 4 days one dose of to lvaptan on the last admission and he was discharged home with a sodium of 137, to [facility]. At the [facility], he had labs done which revealed a sodium o f 129. The patient was continued on demeclocycline 300 mg p.o. b.i.d. and tolvaptan was not given u nfortunately due to the insurance reasons and the group home facility. He was sent back to [facility] Emergency Room with a complaint of altered mental status. The patient is noted to have a sodium of 124. He is lethargic. He is not responding. The patient has chronic res piratory failure on a ventilator. He also had some sacral wounds on admission. The patient has sig nificant wounds noted on his heels and right ankle. He is currently on FIO2 of 30%, getting admitte d to the telemetry floor by Dr. Desir, and renal has been consulted for hyponatremia, sodium of 1 24. REVIEW OF SYSTEMS: The patient has ventilator-dependent respiratory failure, unable to obtain any r eview of systems from him. PAST MEDICAL HISTORY: Notable for a history of previous brain tumor, had BREAD MOLDER shunt placement in the past, chronic respiratory failure, status post tracheostomy on a ventilator, chronic encephalopathy , history of diabetes mellitus, history of hypertension, history of possible chronic hyponatremia se condary to SIADH. PAST SURGICAL HISTORY: History of BREAD MOLDER shunt placement, history of tracheostomy, history of PEG tube placement. 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 No smoking or alcohol as per the chart review. FAMILY HISTORY: Not available. PHYSICAL EXAMINATION: VITAL SIGNS: Temperature 98.5, heart rate 68, respirations 15, blood pressure 137/80, saturation is 100% on FIO2 30% on ventilator. GENERAL: The patient is nonverbal and noncommunicative. HEENT: Pupils equal and reactive to light. NECK: Status post tracheostomy, on ventilator. Neck is supple. Site is clear. No erythema, no di scharge. LUNGS: Bilateral coarse breath sounds heard. No wheezing. HEART: S1, S2, tachycardia, no murmur. ABDOMEN: Soft. G-tube site is clear. No leaking, no discharge. Erythema around the G-tube. EXTREMITIES: 1+ pitting edema in the right ankle. SKIN: The patient has some pressure ulcers on admissions including the right heel and buttocks. NEUROLOGICAL: Uncooperative for examination secondary to chronic encephalopathy. LABORATORY DATA/DIAGNOSTIC IMAGING: WBC 5.3, hemoglobin 9.4, platelet count 221. Sodium 124, potas sium 4.4, chloride 91, bicarbonate 26, BUN 11, creatinine 0.2, glucose 122, calcium 7.8. LFTs are s lightly elevated, AST 139, ALT 94, alkaline phosphatase 168. BNP 721. Albumin 2.7. PT 12.7, PTT 4 2.4, INR 0.95. Chest x-ray, 1 view portable, done in the emergency room shows bilateral lung base atelectasis versu s , this is left greater than right. Bilateral small pleural effusions, left greater than righ t. IMPRESSION: This is a 51-year-old male who has chronic encephalopathy secondary to a previous brain tumor, chronic respiratory failure, status post tracheostomy on a ventilator, who is a skilled nurs ing resident at [facility], who was brought in by paramedics because of altered mental status a nd also noted to have severe hyponatremia with a sodium of 124. The patient has a previous episode of severe hyponatremia with a sodium down to 119 associated with seizure-like activities, and he is getting admitted by Dr. Desir. Renal has been consulted for: 1. Severe hyponatremia, acute on chronic hyponatremia secondary to syndrome of inappropriate antidi uretic hormone with some prerenal azotemia. 2. History of possible chronic hyponatremia secondary to syndrome of inappropriate antidiuretic hor edda. The patient has been on demeclocycline 300 mg p.o. b.i.d., maximum dose, unresponsive. Tolva ptan was not covered in the group home facility. 3. History of hypertension. 4. History of diabetes mellitus. 5. Chronic encephalopathy. 6. 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 7. History of G-tube in place. 8. Elevated liver enzymes. Rule out any liver cirrhosis versus other etiology. Thank you, Dr. Desir, for this consultation. The patient was seen in the emergency room bed #1. At the time of my evaluation, his saturation was 100% on FIO2 of 30%. He is hemodynamically stable . Blood pressure systolic 130s to 140s. I will send his urine studies including a urine sodium, ur ine osmolality and serum osmolality, TSH, free T4, cortisol for workup of hyponatremia. The patient likely has acute on chronic hyponatremia secondary to SIADH. I will continue the demeclocycline 300 mg p.o. b.i.d. Due to the elevated liver enzymes at this point, we will currently hold off on giving tolvaptan. I will order an abdominal ultrasound to better workup the elevated liver enzymes. We will trend his liver enzymes and a subsequent plan for tolvaptan will be decided depending on his liver enzymes level. I will give him NS 500 mL bolus in the emergency room and patient will be admitted by Dr. Desir. Thank you, Dr. Desir, for this consultation. I will continue to follow this patient. Total time spent on this patient's evaluation in the emergency room, communicating with the nursing staff and also updating the plan for admission and the further plan for IV fluid bolus followed by a bdominal ultrasound took more than 90 minutes. Dictated By: LISSA PARK MD, KP/PIPER Conf#: [id number] DID#: [id number]
--- NOTE | 2016-11-18 12:02 | RADRPT ---
PROCEDURE: Ultrasound of the abdomen and retroperitoneum. CLINICAL INDICATION: Abdominal pain. Abnormal labs. TECHNIQUE: Multiple real-time longitudinal and transverse images of the abdomen were acquired util izing a curved array transducer. Images were reviewed on a high-resolution PACS workstation. COMPARISON: CT abdomen pelvis 10/24/2016 FINDINGS: The liver is normal in size, shape, and echogenicity. No hepatic masses are seen. There is no evide nce of intra or extrahepatic ductal dilatation. The common bile duct measures 3.7 mm in maximal dim ension. Gallstones are identified within the gallbladder. There is mild gallbladder wall thickening . The visualized portions of the pancreas are unremarkable with obscuration of the tail of the pancrea s. No free fluid is identified. The spleen is normal and measures 9.2 cm. The kidneys are without calcifications or hydronephrosis. The right kidney measures 12.5 cm, and t he left kidney measures 12.3 cm. The visualized portions of the aorta and inferior vena cava are unremarkable. IMPRESSION: 1. Cholelithiasis and mild gallbladder wall thickening. 2. Otherwise unremarkable ultrasound of the abdomen and retroperitoneum. RPTAT: KK .Bam Michael MD, MD Date Time Electronically viewed and signed by .Bam Michael MD, MD on 11/18/2016 12:02 .B/
[2016-11-18 12:08] LABS: THYROID STIMULATING HORMONE 2.1 MIU/L (0.465-4.680)
--- NOTE | 2016-11-18 14:02 | HP ---
DATE OF ADMISSION: 11/18/2016 CHIEF COMPLAINT: Patient was sent from [facility] for hyponatremia with sodium being 1 24. HISTORY OF PRESENT ILLNESS: The patient is a 51-year-old unfortunate male known to me from previous admissions and the patient is with history of brainstem glioma, status post ventriculoperi toneal shunt, status post ventilator-dependent respiratory failure with tracheostomy. Patient with chronic encephalopathy, seizure disorder, hypertension, history of cerebrovascular accident and bedr idden status. Patient with dysphagia with G-tube placement. The patient had persistent hyponatremi a secondary to syndrome of inappropriate antidiuretic hormone, was discharged on demeclocycline with stable sodium and the patient was noted to have hyponatremia on routine lab at [facility], and was brought in for further evaluation to the emergency room. In the emergency room, the p atient's sodium was 124. There is no fever, there is no nausea, vomiting reported. The patient is with chronic encephalopathy and cannot provide any history. Most of the history was obtained from jennifer johnson to the nursing staff and medical records. The patient will be admitted for further evaluatio n and management. PAST MEDICAL HISTORY: Per HPI. PAST SURGICAL HISTORY: Status post COAL CHEMIST shunt placement. CHEST: Status post tracheostomy, status post PEG placement. FAMILY HISTORY: Noncontributory. SOCIAL HISTORY: Patient is a resident of a nursing home facility. ALLERGIES: NO KNOWN ALLERGIES. MEDICATIONS ON ADMISSION: 1. Tylenol. 2. Lipitor. 3. Benazepril. 4. Demeclocycline. 5. Colace. 6. Ferrous sulfate. 7. Hydralazine. 8. NovoLog. 9. Lantus. 10. Atrovent. 11. Floranex. 12. Lactulose. 13. Prevacid. 14. Keppra. 15. Sinemet. 16. Ativan. 17. Mineral oil p.r.n. for constipation. 18. Multivitamins. 19. Zofran. 20. Reglan. REVIEW OF SYSTEMS: A 12-point review of systems negative unless what mentioned in the HPI. PHYSICAL ASSESSMENT GENERAL: A well-developed, obtunded gentleman on ventilator support via tracheostomy. VITAL SIGNS: Temperature is 98.5, pulse is 67, blood pressure is 148/79, respiratory rate 16, oxyge n saturation 100% on 30% FIO2. HEENT: Head is atraumatic, normocephalic. Pupils equal, round, reactive to light and accommodation . Oral mucosa is pink and moist. NECK: Supple. There is a tracheostomy at the base of the neck. LUNGS: Scattered rhonchi bilaterally. There is no wheezing noted. Slightly diminished at the base s. CARDIOVASCULAR: Normal S1, S2. The patient is slightly tachycardic. No murmurs, gallops, clicks, rubs noted. ABDOMEN: Round, soft, nondistended, nontender. Patient has a G-tube. EXTREMITIES: Mild edema. There is no clubbing or cyanosis. SKIN: Patient has multiple pressure ulcers present on admission including a right heel and buttocks . NEUROLOGIC: Patient is obtunded, does not follow any commands, did not move any extremities. LABORATORY DATA: On admission, CBC: White blood cells 5.3, hemoglobin 9.4, hematocrit 27.1, platel ets 221. Chemistry: Sodium is 124, potassium 4.4, chloride 91, carbon dioxide 26, anion gap 11, BU N is 11, creatinine 0.27, glucose 122. AST is 139, ALT 94, alkaline phosphatase 168. Troponin less than 0.012. IMAGING: Chest x-ray with bilateral lung base atelectasis versus airspace disease, left greater delma n right. Bilateral small pleural effusion, left greater than right. ASSESSMENT AND PLAN: 1. Acute on chronic hyponatremia secondary to syndrome of inappropriate antidiuretic hormone. Dr. Tovar is following in nephrology consultation. Continue to monitor sodium. 2. Ventilator-dependent respiratory failure. Continue ventilatory support. Dr. Clarke will be fo llowing the patient in pulmonology consultation. Continue bronchodilators. 3. Brainstem glioma, status post ventriculoperitoneal shunt placement. 4. Status post cerebrovascular accident. 5. Chronic encephalopathy. 6. Seizure disorder. Will continue Keppra. 7. Dysphagia with G-tube. 8. Transaminitis. The patient is getting an abdominal ultrasound. We will ask Dr. Mas to follo w up the patient in gastroenterology consultation. 9. Diabetes mellitus type 2. Continue NovoLog and Lantus. 10. Hypertension. Continue benazepril 11. Hyperlipidemia, continue Lipitor. 12. Bedridden status with functional quadriplegia. Continue to assist patient with activities of d aily living. 13. Multiple pressure sores present on admission. Continue current wound care. We will obtain wou nd care consultation. Continue sequential compression device for deep venous thrombosis prophylaxis . 14. Prevacid for peptic ulcer disease prophylaxis. Further recommendations based on clinical course. Plan of care discussed with Dr. Colby. Dictated By: ALTHEA ACOSTA REFLECTOR [employer]LLER [employer] DEBURRER for JENELLE COLBY MD SR/NTS Conf#: [id number] DID#: [id number]
[2016-11-18 16:44] LABS: POTASSIUM 3.9 mmol/L (3.5-5.1)
[2016-11-18 16:46] LABS: CREATININE 0.23 mg/dl (0.61-1.24)
[2016-11-18 16:47] LABS: CALCIUM 7.5 mg/dl (8.4-10.2)
[2016-11-18 20:21] VITALS: PULSE 69
[2016-11-18 20:49] VITALS: RESP 12
[2016-11-18 21:00] VITALS: Ht 162.6 cm; Wt 77.3 kg
[2016-11-18 21:08] VITALS: BP 155/76; RESP 18
[2016-11-18 22:42] VITALS: RESP 12
[2016-11-18] MEDS ORDERED: MINERAL OIL 133 ML ENEMA PR PRN (23:30)
[2016-11-18] MEDS ORDERED: ACETAMINOPHEN 325 MG TAB GTB PRN (23:30)
[2016-11-18] MEDS ORDERED: GLUCAGON 1 MG INJ IM PRN ×2 (23:30→23:45)
[2016-11-18] MEDS ORDERED: DOCUSATE SODIUM 10 MG/ML (10ML CUP) GTB PRN (23:30)
[2016-11-18] MEDS ORDERED: ONDANSETRON 4 MG TAB GTB PRN (23:30)
[2016-11-18] MEDS ORDERED: GLUCOSE GEL 15 GRAM TUBE PO PRN ×2 (23:45)
[2016-11-18] MEDS ORDERED: GLUCOSE GEL 15 GRAM TUBE BUCCAL PRN (23:45)
[2016-11-18] MEDS ORDERED: DEXTROSE 50% 50 ML SYRINGE IV PRN (23:45)
[2016-11-18 23:53] VITALS: BP 160/77; RESP 18
[2016-11-19] VITALS (23 sets, daily range): BP systolic 122–145; BP diastolic 69–80; PULSE 58–94; RESP 12–19
[2016-11-19] MEDS ORDERED: SOD CHLORIDE 0.9% 500 ML IV ONE (00:15)
[2016-11-19] MEDS: METOPROLOL 25 MG TAB GTB SCH ×3 (00:23→21:59)
[2016-11-19 06:06] LABS: ADD SCAN DIFF NO
[2016-11-19 06:17] LABS: BASOPHIL # 0.1 10^3/ul (0.0-0.1); BASOPHILS % 0.8 % (0.0-2.0); EOSINOPHILS # 0.1 10^3/ul (0.0-0.5); EOSINOPHILS % 2.1 % (0.0-7.0); HEMOGLOBIN 10.1 g/dl (14.0-18.0); LYMPHOCYTES # 0.6 10^3/ul (0.8-2.9); LYMPHOCYTES % 10.2 % (15.0-51.0); MEAN CORPUSCULAR HEMOGLOBIN 28.8 pg (29.0-33.0); MEAN CORPUSCULAR HGB CONC 32.6 g/dl (32.0-37.0); MEAN CORPUSCULAR VOLUME 88.3 fl (82.0-101.0); MONOCYTES % 15.4 % (0.0-11.0); NEUTROPHIL # 4.3 10^3/ul (1.6-7.5); RED BLOOD COUNT 3.51 10^6/ul (4.70-6.10); RED CELL DISTRIBUTION WIDTH 16.4 % (11.5-14.5); WHITE BLOOD COUNT 6.2 10^3/ul (4.8-10.8)
[2016-11-19 06:22] LABS: POTASSIUM 4.2 mmol/L (3.5-5.1)
[2016-11-19 06:25] LABS: CREATININE 0.24 mg/dl (0.61-1.24)
[2016-11-19 06:55] LABS: PLATELET COUNT 274 10^3/UL (140-415)
[2016-11-19] MEDS ORDERED: NON-FORMULARY/PATIENT OWN MED (Protein Supplement (Promod) 30 ML) GTB SCH (09:00)
[2016-11-19] MEDS: ASPIRIN 81 MG TAB GTB SCH (09:30)
[2016-11-19] MEDS: FERROUS SULFATE 60 MG/ML 5ML CUP GTB SCH (09:30)
[2016-11-19] MEDS: BENAZEPRIL 10 MG TAB GTB SCH (09:31)
[2016-11-19] MEDS: MULTIVITAMINS THERAPEUTIC TAB PO SCH (09:31)
[2016-11-19] MEDS: FAMOTIDINE 20 MG TAB GTB SCH (09:31)
[2016-11-19] MEDS: SODIUM CHLORIDE 1 GM TAB GTB SCH ×3 (09:31→21:58)
[2016-11-19] MEDS: POTASSIUM CHLORIDE (1.33 MEQ/ML PO SYG) GTB SCH (09:32)
[2016-11-19] MEDS: INSULIN DETEMIR [LEVEMIR] 3ML CART SC SCH ×2 (09:37→22:14)
--- NOTE | 2016-11-19 11:48 | CONS ---
Date/Time of Note Date/Time of Note DATE: 11/19/16 TIME: 11:43 Assessment/Plan Assessment/Plan Additional Assessment/Plan Ventilator settings; AC of 12, tidal volume 500, PEEP of 5, 30% FiO2. Assessment recommendations; 1. Patient with chronic respiratory failure now admitted for hyponatremia. 2. Recent UTI and sepsis. Status post antibiotic treatment. 3. Stable diabetes and hypertension. Add tolvaptan 50 mg daily. Continue current supportive care. Consultation Date/Type/Reason Admit Date/Time Nov 18, 2016 at 02:08 Date of Consultation: Nov 19, 2016 Reason for Consultation Pulmonary consultation obtained for management of chronic respiratory failure. History presenting illness; patient is a 57-year-old male who [facility] a [facility] stay at [facility] for UTI and sepsis apparently the patient had blood mild hyponatremia and was discharged back to [facility] for management of hyponatremia. The patient because of history of severe anoxic brain injury remains completely unresponsive and remains completely ventilator dependent. History was obtained from medical records as well as from my prior visitationhim during his prolonged stay recently over here. Past medical history; 1. History of respiratory failure, ventilator dependent. 2. History of intracerebral bleed status post craniotomy. 3. Hypertension. 4. Diabetes. 5. Recent UTI and sepsis. 6. Episodes of hyponatremia. Medications; were reviewed. Allergies; are none. Social history; is noncontributory. Family history; patient is very supportive family. Review of systems; currently unable to be obtained. Next rub General exam; middle aged man, on ventilator via tracheostomy, unresponsive. Social History Smoking Status: Unknown if ever smoked Exam/Review of Systems Vital Signs Vitals Vital Signs Date Time Temp Pulse Resp B/P Pulse Ox O2 Delivery O2 Flow Rate FiO2 11/19/16 11:36 97.3 63 19 133/69 99 11/19/16 09:23 30 11/18/16 19:09 Mechanical Ventilator Intake and Output 11/18/16 11/18/16 11/19/16 15:00 23:00 07:00 Intake Total 1000 ml Balance 1000 ml Exam HEENT examination; supple neck, no JVD. No lymphadenopathy. Midline trachea. No thyromegaly. Tracheostomy in place with clean insertion site. Has fair dentition. There is a well-healed frontal craniotomy scar. Chest examination a micro clear to auscultation. S1-S2 audible, no murmurs. Regular rhythm. Abdomen examination; soft, nondistended. No organomegaly. G-tube in place. Bowel sounds audible. Extremity exam is; no peripheral edema. FRAME OPERATOR examination; she remains unresponsive. Results Result Diagram: 11/19/16 0540 11/19/16 0540 Results 24 hrs Laboratory Tests Test 11/18/16 16:15 11/19/16 05:40 Sodium Level 124 L 126 L Potassium Level 3.9 4.2 Chloride Level 94 L 94 L Carbon Dioxide Level 25 25 Anion Gap 9 11 Blood Urea Nitrogen 9 9 Creatinine 0.23 L 0.24 L Glucose Level 94 92 Calcium Level 7.5 L 8.0 L White Blood Count 6.2 Red Blood Count 3.51 L Hemoglobin 10.1 L Hematocrit 31.0 L Mean Corpuscular Volume 88.3 Mean Corpuscular Hemoglobin 28.8 L Mean Corpuscular Hemoglobin Concent 32.6 Red Cell Distribution Width 16.4 H Platelet Count 274 # Mean Platelet Volume 10.0 Neutrophils % 70.0 Lymphocytes % 10.2 L Monocytes % 15.4 H Eosinophils % 2.1 Basophils % 0.8 Nucleated Red Blood Cells % 0.0 Neutrophils # 4.3 Lymphocytes # 0.6 L Monocytes # 1.0 H Eosinophils # 0.1 Basophils # 0.1 Nucleated Red Blood Cells # 0.0 Medications Medications Current Medications Acetaminophen (Tylenol Tab) 650 mg Q6H PRN GTB PAIN AND OR ELEVATED TEMP; Start 11/18/16 at 23:30 Aspirin (Aspirin) 81 mg DAILY GTB Last administered on 11/19/16 09:30; Admin Dose 81 MG; Start 11/19/16 at 09:00 Atorvastatin Calcium (Lipitor) 40 mg QHS GTB ; Start 11/19/16 at 21:00 Benazepril HCl (Lotensin) 10 mg DAILY GTB Last administered on 11/19/16 09:31 ; Admin Dose 10 MG; Start 11/19/16 at 09:00 Docusate Sodium (Colace Liquid Cup) 200 mg DAILY PRN GTB CONSTIPATION; Start at 23:30 Famotidine (Pepcid) 20 mg DAILY GTB Last administered on 11/19/16 09:31; Admin Dose 20 MG; Start 11/19/16 at 09:00 Ferrous Sulfate (Feosol Liquid Cup) 330 mg DAILY GTB Last administered on 09:30; Admin Dose 330 MG; Start 11/19/16 at 09:00 Hydralazine HCl (Apresoline) 25 mg Q6H PRN GTB ELEVATED BLOOD PRESSURE; Start 11/18/16 at 23:30 Metoprolol Tartrate (Lopressor) 25 mg BID GTB Last administered on 11/19/16 09 :31; Admin Dose 25 MG; Start 11/18/16 at 23:30 Mineral Oil (Fleet Mineral Oil Enema) 133 ml DAILY PRN [place] CONSTIPATION; Start 11/18/16 at 23:30 Multivitamins Therapeutic (Theragran) 1 tab DAILY PO Last administered on 09:31; Admin Dose 1 TAB; Start 11/19/16 at 09:00 Ondansetron HCl (Zofran Tab) 4 mg Q4H PRN GTB NAUSEA AND/OR VOMITING; Start at 23:30 Potassium Chloride (KCl Liq (Ped)) 40 meq DAILY GTB Last administered on 09:32; Admin Dose 40 MEQ; Start 11/19/16 at 09:00 Sodium Chloride (Nacl) 1 gm TID GTB Last administered on 11/19/16 09:31; Admin Dose 1 GM; Start 11/19/16 at 09:00 Tamsulosin HCl (Flomax) 0.4 mg HS PO ; Start 11/19/16 at 21:00 Glucagon (Glucagen) 1 mg DAILY PRN IM LOW GLUCOSE; Start 11/18/16 at 23:30 Insulin Detemir (Levemir) 16 unit BID SC Last administered on 11/19/16 09:37; Admin Dose 16 UNIT; Start 11/19/16 at 09:00 Miscellaneous Information 30 ml DAILY GTB ; Start 11/19/16 at 09:00; Status UNV Miscellaneous Information 1 ea NOTE XX ; Start 11/18/16 at 23:45 Glucose (Glutose) 15 gm Q15M PRN PO DECREASED GLUCOSE; Start 11/18/16 at 23:45 Glucose (Glutose) 22.5 gm Q15M PRN PO DECREASED GLUCOSE; Start 11/18/16 at 23: 45 Dextrose (D50w Syringe) 25 ml Q15M PRN IV DECREASED GLUCOSE; Start 11/18/16 at 23:45 Dextrose (D50w Syringe) 50 ml Q15M PRN IV DECREASED GLUCOSE; Start 11/18/16 at 23:45 Glucagon (Glucagen) 1 mg Q15M PRN IM DECREASED GLUCOSE; Start 11/18/16 at 23:45 Glucose (Glutose) 15 gm Q15M PRN BUCCAL DECREASED GLUCOSE; Start 11/18/16 at 23 :45 JUANA DE LEÓN Nov 19, 2016 11:48
[2016-11-19] MEDS ORDERED: TOLVAPTAN 15 MG TABLET PO SCH (12:00)
[2016-11-19 14:47] LABS: SODIUM 126 mmol/L (135-144)
[2016-11-19 14:50] LABS: ALANINE AMINOTRANSFERASE 95 IU/L (13-69); ASPARTATE AMINO TRANSFERASE 98 IU/L (15-46)
--- NOTE | 2016-11-19 18:35 | PN ---
Date/Time of Note Date/Time of Note DATE: 11/19/16 TIME: 18:34 Assessment/Plan VTE Prophylaxis VTE Prophylaxis Intervention: other Lines/Catheters IV Catheter Type (from [facility]): [facility] Urinary Cath still in place: Yes Assessment/Plan Assessment/Plan 1. Acute on chronic hyponatremia secondary to syndrome of inappropriate antidiuretic hormone. Dr. Tovar is following in nephrology consultation. Continue to monitor sodium. 2. Ventilator-dependent respiratory failure. Continue ventilatory support. Dr. Clarke will be following the patient in pulmonology consultation. Continue bronchodilators. 3. Brainstem glioma, status post ventriculoperitoneal shunt placement. 4. Status post cerebrovascular accident. 5. Chronic encephalopathy. 6. Seizure disorder. Will continue Keppra. 7. Dysphagia with G-tube. 8. Transaminitis. The patient is getting an abdominal ultrasound. We will ask Dr. Mas to follow up the patient in gastroenterology consultation. 9. Diabetes mellitus type 2. Continue NovoLog and Lantus. 10. Hypertension. Continue benazepril 11. Hyperlipidemia, continue Lipitor. 12. Bedridden status with functional quadriplegia. Continue to assist patient with activities of daily living. 13. Multiple pressure sores present on admission. Continue current wound care. We will obtain wound care consultation. Continue sequential compression device for deep venous thrombosis prophylaxis. 14. Prevacid for peptic ulcer disease prophylaxis. Further recommendations based on clinical course. Plan of care discussed with Dr. Desir. Exam/Review of Systems Vital Signs Vitals Vital Signs Date Time Temp Pulse Resp B/P Pulse Ox O2 Delivery O2 Flow Rate FiO2 11/19/16 17:24 76 12 100 30 11/19/16 15:47 97.4 122/73 11/18/16 19:09 Mechanical Ventilator Intake and Output 11/18/16 11/18/16 11/19/16 15:00 23:00 07:00 Intake Total 1000 ml Balance 1000 ml Exam Eyes: nl sclera ENMT: nl external ears & nose Neck: non-tender Respiratory: diminished breath sounds Cardiovascular: nl pulses Musculoskeletal: muscle weakness Extremities: normal pulses Lymph: nontender Results Result Diagram: 11/19/16 0540 11/19/16 1350 Results 24 hrs Laboratory Tests Test 11/19/16 05:40 11/19/16 13:50 11/19/16 17:20 White Blood Count 6.2 Red Blood Count 3.51 L Hemoglobin 10.1 L Hematocrit 31.0 L Mean Corpuscular Volume 88.3 Mean Corpuscular Hemoglobin 28.8 L Mean Corpuscular Hemoglobin Concent 32.6 Red Cell Distribution Width 16.4 H Platelet Count 274 # Mean Platelet Volume 10.0 Neutrophils % 70.0 Lymphocytes % 10.2 L Monocytes % 15.4 H Eosinophils % 2.1 Basophils % 0.8 Nucleated Red Blood Cells % 0.0 Neutrophils # 4.3 Lymphocytes # 0.6 L Monocytes # 1.0 H Eosinophils # 0.1 Basophils # 0.1 Nucleated Red Blood Cells # 0.0 Sodium Level 126 L 126 L Potassium Level 4.2 Chloride Level 94 L Carbon Dioxide Level 25 Anion Gap 11 Blood Urea Nitrogen 9 Creatinine 0.24 L Glucose Level 92 Calcium Level 8.0 L Aspartate Amino Transf (AST/SGOT) 98 H Alanine Aminotransferase (ALT/SGPT) 95 H Urine Random Sodium 14 L Medications Medications Current Medications Acetaminophen (Tylenol Tab) 650 mg Q6H PRN GTB PAIN AND OR ELEVATED TEMP; Start 11/18/16 at 23:30 Aspirin (Aspirin) 81 mg DAILY GTB Last administered on 11/19/16 09:30; Admin Dose 81 MG; Start 11/19/16 at 09:00 Atorvastatin Calcium (Lipitor) 40 mg QHS GTB ; Start 11/19/16 at 21:00 Benazepril HCl (Lotensin) 10 mg DAILY GTB Last administered on 11/19/16 09:31 ; Admin Dose 10 MG; Start 11/19/16 at 09:00 Docusate Sodium (Colace Liquid Cup) 200 mg DAILY PRN GTB CONSTIPATION; Start at 23:30 Famotidine (Pepcid) 20 mg DAILY GTB Last administered on 11/19/16 09:31; Admin Dose 20 MG; Start 11/19/16 at 09:00 Ferrous Sulfate (Feosol Liquid Cup) 330 mg DAILY GTB Last administered on 09:30; Admin Dose 330 MG; Start 11/19/16 at 09:00 Hydralazine HCl (Apresoline) 25 mg Q6H PRN GTB ELEVATED BLOOD PRESSURE; Start 11/18/16 at 23:30 Metoprolol Tartrate (Lopressor) 25 mg BID GTB Last administered on 11/19/16 09 :31; Admin Dose 25 MG; Start 11/18/16 at 23:30 Mineral Oil (Fleet Mineral Oil Enema) 133 ml DAILY PRN [place] CONSTIPATION; Start 11/18/16 at 23:30 Multivitamins Therapeutic (Theragran) 1 tab DAILY PO Last administered on 09:31; Admin Dose 1 TAB; Start 11/19/16 at 09:00 Ondansetron HCl (Zofran Tab) 4 mg Q4H PRN GTB NAUSEA AND/OR VOMITING; Start at 23:30 Potassium Chloride (KCl Liq (Ped)) 40 meq DAILY GTB Last administered on 09:32; Admin Dose 40 MEQ; Start 11/19/16 at 09:00 Sodium Chloride (Nacl) 1 gm TID GTB Last administered on 11/19/16 12:26; Admin Dose 1 GM; Start 11/19/16 at 09:00 Tamsulosin HCl (Flomax) 0.4 mg HS PO ; Start 11/19/16 at 21:00 Glucagon (Glucagen) 1 mg DAILY PRN IM LOW GLUCOSE; Start 11/18/16 at 23:30 Insulin Detemir (Levemir) 16 unit BID SC Last administered on 11/19/16 09:37; Admin Dose 16 UNIT; Start 11/19/16 at 09:00 Miscellaneous Information 1 ea NOTE XX ; Start 11/18/16 at 23:45 Glucose (Glutose) 15 gm Q15M PRN PO DECREASED GLUCOSE; Start 11/18/16 at 23:45 Glucose (Glutose) 22.5 gm Q15M PRN PO DECREASED GLUCOSE; Start 11/18/16 at 23: 45 Dextrose (D50w Syringe) 25 ml Q15M PRN IV DECREASED GLUCOSE; Start 11/18/16 at 23:45 Dextrose (D50w Syringe) 50 ml Q15M PRN IV DECREASED GLUCOSE; Start 11/18/16 at 23:45 Glucagon (Glucagen) 1 mg Q15M PRN IM DECREASED GLUCOSE; Start 11/18/16 at 23:45 Glucose (Glutose) 15 gm Q15M PRN BUCCAL DECREASED GLUCOSE; Start 11/18/16 at 23 :45 Tolvaptan (Samsca) 15 mg Q24H PO Last administered on 11/19/16t 12:26; Admin Dose 15 MG; Start 11/19/16 at 12:00 KENYATTA CAPPS Nov 19, 2016 18:35
--- NOTE | 2016-11-19 19:09 | CONS ---
Date/Time of Note Date/Time of Note DATE: 11/19/16 TIME: 19:06 Assessment/Plan Assessment/Plan Additional Assessment/Plan 1. Severe hyponatremia, acute on chronic hyponatremia secondary to syndrome of inappropriate antidiuretic hormone with some prerenal azotemia. 2. History of possible chronic hyponatremia secondary to syndrome of inappropriate antidiuretic hormone. The patient has been on demeclocycline 300 mg p.o. b.i.d., maximum dose, unresponsive. Tolvaptan was not covered in the care home facility. 3. History of hypertension. 4. History of diabetes mellitus. 5. Chronic encephalopathy. 6. 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 7. History of G-tube in place. 8. Elevated liver enzymes. Rule out any liver cirrhosis versus other etiology. plan: continue Demeclocycline now for low Na Na still1 26- wll start tolvaptan 15mg po daily will follow up Consultation Date/Type/Reason Admit Date/Time Nov 18, 2016 at 02:08 Initial Consult Date 11/18/16 Type of Consultation: NEPHROLOGY Reason for Consultation Hyponatremia severe Referring Provider: JENELLE COLBY MD 24 HR Interval Summary Free Text/Dictation Na 126, Bp low, Exam/Review of Systems Vital Signs Vitals Vital Signs Date Time Temp Pulse Resp B/P Pulse Ox O2 Delivery O2 Flow Rate FiO2 11/19/16 17:24 76 12 100 30 11/19/16 15:47 97.4 122/73 11/18/16 19:09 Mechanical Ventilator Intake and Output 11/18/16 11/18/16 11/19/16 15:00 23:00 07:00 Intake Total 1000 ml Balance 1000 ml Exam GENERAL: The patient is nonverbal and noncommunicative. HEENT: Pupils equal and reactive to light. NECK: Status post tracheostomy, on ventilator. Neck is supple. Site is clear. No erythema, no discharge. LUNGS: Bilateral coarse breath sounds heard. No wheezing. HEART: S1, S2, tachycardia, no murmur. ABDOMEN: Soft. G-tube site is clear. No leaking, no discharge. Erythema around the G-tube. EXTREMITIES: 1+ pitting edema in the right ankle. SKIN: The patient has some pressure ulcers on admissions including the right heel and buttocks. NEUROLOGICAL: Uncooperative for examination secondary to chronic encephalopathy. Results Result Diagram: 11/19/16 0540 11/19/16 1350 Results 24 hrs Laboratory Tests Test 11/19/16 05:40 11/19/16 13:50 11/19/16 17:20 White Blood Count 6.2 Red Blood Count 3.51 L Hemoglobin 10.1 L Hematocrit 31.0 L Mean Corpuscular Volume 88.3 Mean Corpuscular Hemoglobin 28.8 L Mean Corpuscular Hemoglobin Concent 32.6 Red Cell Distribution Width 16.4 H Platelet Count 274 # Mean Platelet Volume 10.0 Neutrophils % 70.0 Lymphocytes % 10.2 L Monocytes % 15.4 H Eosinophils % 2.1 Basophils % 0.8 Nucleated Red Blood Cells % 0.0 Neutrophils # 4.3 Lymphocytes # 0.6 L Monocytes # 1.0 H Eosinophils # 0.1 Basophils # 0.1 Nucleated Red Blood Cells # 0.0 Sodium Level 126 L 126 L Potassium Level 4.2 Chloride Level 94 L Carbon Dioxide Level 25 Anion Gap 11 Blood Urea Nitrogen 9 Creatinine 0.24 L Glucose Level 92 Calcium Level 8.0 L Aspartate Amino Transf (AST/SGOT) 98 H Alanine Aminotransferase (ALT/SGPT) 95 H Urine Random Sodium 14 L Medications Medications Current Medications Acetaminophen (Tylenol Tab) 650 mg Q6H PRN GTB PAIN AND OR ELEVATED TEMP; Start 11/18/16 at 23:30 Aspirin (Aspirin) 81 mg DAILY GTB Last administered on 11/19/16 09:30; Admin Dose 81 MG; Start 11/19/16 at 09:00 Atorvastatin Calcium (Lipitor) 40 mg QHS GTB ; Start 11/19/16 at 21:00 Benazepril HCl (Lotensin) 10 mg DAILY GTB Last administered on 11/19/16 09:31 ; Admin Dose 10 MG; Start 11/19/16 at 09:00 Docusate Sodium (Colace Liquid Cup) 200 mg DAILY PRN GTB CONSTIPATION; Start at 23:30 Famotidine (Pepcid) 20 mg DAILY GTB Last administered on 11/19/16 09:31; Admin Dose 20 MG; Start 11/19/16 at 09:00 Ferrous Sulfate (Feosol Liquid Cup) 330 mg DAILY GTB Last administered on 09:30; Admin Dose 330 MG; Start 11/19/16 at 09:00 Hydralazine HCl (Apresoline) 25 mg Q6H PRN GTB ELEVATED BLOOD PRESSURE; Start 11/18/16 at 23:30 Metoprolol Tartrate (Lopressor) 25 mg BID GTB Last administered on 11/19/16 09 :31; Admin Dose 25 MG; Start 11/18/16 at 23:30 Mineral Oil (Fleet Mineral Oil Enema) 133 ml DAILY PRN [place] CONSTIPATION; Start 11/18/16 at 23:30 Multivitamins Therapeutic (Theragran) 1 tab DAILY PO Last administered on 09:31; Admin Dose 1 TAB; Start 11/19/16 at 09:00 Ondansetron HCl (Zofran Tab) 4 mg Q4H PRN GTB NAUSEA AND/OR VOMITING; Start at 23:30 Potassium Chloride (KCl Liq (Ped)) 40 meq DAILY GTB Last administered on 09:32; Admin Dose 40 MEQ; Start 11/19/16 at 09:00 Sodium Chloride (Nacl) 1 gm TID GTB Last administered on 11/19/16 12:26; Admin Dose 1 GM; Start 11/19/16 at 09:00 Tamsulosin HCl (Flomax) 0.4 mg HS PO ; Start 11/19/16 at 21:00 Glucagon (Glucagen) 1 mg DAILY PRN IM LOW GLUCOSE; Start 11/18/16 at 23:30 Insulin Detemir (Levemir) 16 unit BID SC Last administered on 11/19/16 09:37; Admin Dose 16 UNIT; Start 11/19/16 at 09:00 Miscellaneous Information 1 ea NOTE XX ; Start 11/18/16 at 23:45 Glucose (Glutose) 15 gm Q15M PRN PO DECREASED GLUCOSE; Start 11/18/16 at 23:45 Glucose (Glutose) 22.5 gm Q15M PRN PO DECREASED GLUCOSE; Start 11/18/16 at 23: 45 Dextrose (D50w Syringe) 25 ml Q15M PRN IV DECREASED GLUCOSE; Start 11/18/16 at 23:45 Dextrose (D50w Syringe) 50 ml Q15M PRN IV DECREASED GLUCOSE; Start 11/18/16 at 23:45 Glucagon (Glucagen) 1 mg Q15M PRN IM DECREASED GLUCOSE; Start 11/18/16 at 23:45 Glucose (Glutose) 15 gm Q15M PRN BUCCAL DECREASED GLUCOSE; Start 11/18/16 at 23 :45 Tolvaptan (Samsca) 15 mg Q24H PO Last administered on 11/19/16t 12:26; Admin Dose 15 MG; Start 11/19/16 at 12:00 Miscellaneous Information (* Miscellaneous Pharmacy Order) HYPOGLYCEMIA PROTOCOL w... ONCE ONCE XX ; Start 11/19/16 at 19:00; Stop 11/19/16 at 19:01; Status UNV Miscellaneous Information (* Miscellaneous Pharmacy Order) Discontinue Glyburide , Glipizide,... ONCE ONCE XX ; Start 11/19/16 at 19:00; Stop 11/19/16 at 19:01 ; Status UNV Miscellaneous Information (* Miscellaneous Pharmacy Order) Discontinue all previ... ONCE ONCE XX ; Start 11/19/16 at 19:00; Stop 11/19/16 at 19:01; Status UNV Diagnostic Test (Pha) (Accu-Chek) 1 ea Q6 XX ; Start 11/20/16 at 00:00; Status UNV LISSA PARK MD Nov 19, 2016 19:09
[2016-11-19] MEDS ORDERED: INSULIN ASPART [NOVOLOG] 3 ML PEN SC SCH (21:00)
[2016-11-19] MEDS: ATORVASTATIN 40 MG TAB GTB SCH (21:59)
[2016-11-19] MEDS: TAMSULOSIN (SR) 0.4 MG CAP PO SCH (21:59)
[2016-11-20] VITALS (24 sets, daily range): BP systolic 91–130; BP diastolic 57–73; PULSE 65–87; RESP 12–18
[2016-11-20] MEDS: INSULIN ASPART [NOVOLOG] 3 ML PEN SC SCH ×4 (00:39→18:00)
[2016-11-20 04:52] LABS: ADD SCAN DIFF NO
[2016-11-20 04:56] LABS: ABNORMAL IP MESSAGE 1; BASOPHIL # 0.1 10^3/ul (0.0-0.1); BASOPHILS % 0.9 % (0.0-2.0); EOSINOPHILS # 0.1 10^3/ul (0.0-0.5); EOSINOPHILS % 1.4 % (0.0-7.0); HEMATOCRIT 30.7 % (42.0-52.0); HEMOGLOBIN 10.2 g/dl (14.0-18.0); LYMPHOCYTES # 0.5 10^3/ul (0.8-2.9); MEAN CORPUSCULAR HEMOGLOBIN 29.6 pg (29.0-33.0); MEAN CORPUSCULAR HGB CONC 33.2 g/dl (32.0-37.0); MEAN PLATELET VOLUME 9.4 fl (7.4-10.4); NEUTROPHIL # 4.8 10^3/ul (1.6-7.5); NEUTROPHILS % 74.2 % (39.0-77.0); PLATELET COUNT 297 10^3/UL (140-415); RED BLOOD COUNT 3.45 10^6/ul (4.70-6.10); RED CELL DISTRIBUTION WIDTH 16.8 % (11.5-14.5); WHITE BLOOD COUNT 6.5 10^3/ul (4.8-10.8)
[2016-11-20 05:01] LABS: LYMPHOCYTES % 7.6 % (15.0-51.0); POTASSIUM 4.1 mmol/L (3.5-5.1)
[2016-11-20 05:03] LABS: CREATININE 0.31 mg/dl (0.61-1.24)
[2016-11-20 05:04] LABS: CALCIUM 8.4 mg/dl (8.4-10.2)
[2016-11-20] MEDS: ACCU-CHEK XX SCH ×4 (06:00→18:14)
[2016-11-20] MEDS: FAMOTIDINE 20 MG TAB GTB SCH (09:00)
[2016-11-20] MEDS: ASPIRIN 81 MG TAB GTB SCH (09:00)
[2016-11-20] MEDS: MULTIVITAMINS THERAPEUTIC TAB PO SCH (09:00)
[2016-11-20] MEDS: FERROUS SULFATE 60 MG/ML 5ML CUP GTB SCH (09:00)
[2016-11-20] MEDS: SODIUM CHLORIDE 1 GM TAB GTB SCH ×3 (09:00→21:45)
[2016-11-20] MEDS: POTASSIUM CHLORIDE (1.33 MEQ/ML PO SYG) GTB SCH (09:01)
[2016-11-20] MEDS: METOPROLOL 25 MG TAB GTB SCH ×2 (09:02→21:45)
[2016-11-20] MEDS: BENAZEPRIL 10 MG TAB GTB SCH (09:02)
[2016-11-20] MEDS: INSULIN DETEMIR [LEVEMIR] 3ML CART SC SCH ×2 (09:29→21:00)
--- NOTE | 2016-11-20 11:14 | CONS ---
Date/Time of Note Date/Time of Note DATE: 11/20/16 TIME: 11:11 Assessment/Plan Assessment/Plan Additional Assessment/Plan 1. Severe hyponatremia, acute on chronic hyponatremia secondary to syndrome of inappropriate antidiuretic hormone with some prerenal azotemia. 2. History of possible chronic hyponatremia secondary to syndrome of inappropriate antidiuretic hormone. The patient has been on demeclocycline 300 mg p.o. b.i.d., maximum dose, unresponsive. [facility]vaptan [facility] not covered in the [facility]. 3. History of hypertension. 4. History of diabetes mellitus. 5. Chronic encephalopathy. 6. 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 7. History of G-tube in place. plan: demeclocycline stopped, on soidum chloride tablet 1 gram PO TID Na improved with tolvaptan director of casework department consult to check if Tolvaptan covered for patient at [facility] CMP in AM to follow up on LFTs will follow up Consultation Date/Type/Reason Admit Date/Time Nov 18, 2016 at 02:08 Initial Consult Date 11/18/16 Type of Consultation: NEPHROLOGY Referring Provider: JENELLE COLBY MD 24 HR Interval Summary Free Text/Dictation Na 141, Bp stable, on tolvaptan Exam/Review of Systems Vital Signs Vitals Vital Signs Date Time Temp Pulse Resp B/P Pulse Ox O2 Delivery O2 Flow Rate FiO2 11/20/16 11:04 65 12 98 30 11/20/16 07:07 97.6 130/73 11/18/16 19:09 Mechanical Ventilator Intake and Output 11/19/16 11/19/16 11/20/16 15:00 23:00 07:00 Intake Total 1015 ml 735 ml Output Total 3000 ml 1800 ml Balance -1985 ml -1065 ml Results Result Diagram: 11/20/16 0410 11/20/16 0410 Results 24 hrs Laboratory Tests Test 11/19/16 13:50 11/19/16 17:20 11/19/16 19:30 11/19/16 22:02 Sodium Level 126 L 135 Aspartate Amino Transf (AST/SGOT) 98 H Alanine Aminotransferase (ALT/SGPT) 95 H Urine Osmolality 97 L Urine Random Sodium 14 L Bedside Glucose 176 Test 11/20/16 00:29 11/20/16 04:10 11/20/16 06:29 Bedside Glucose 185 96 White Blood Count 6.5 Red Blood Count 3.45 L Hemoglobin 10.2 L Hematocrit 30.7 L Mean Corpuscular Volume 89.0 Mean Corpuscular Hemoglobin 29.6 Mean Corpuscular Hemoglobin Concent 33.2 Red Cell Distribution Width 16.8 H Platelet Count 297 Mean Platelet Volume 9.4 Neutrophils % 74.2 Lymphocytes % 7.6 L Monocytes % 15.0 H Eosinophils % 1.4 Basophils % 0.9 Nucleated Red Blood Cells % 0.0 Neutrophils # 4.8 Lymphocytes # 0.5 L Monocytes # 1.0 H Eosinophils # 0.1 Basophils # 0.1 Nucleated Red Blood Cells # 0.0 Sodium Level 141 Potassium Level 4.1 Chloride Level 104 # Carbon Dioxide Level 31 Anion Gap 10 Blood Urea Nitrogen 10 Creatinine 0.31 L Glucose Level 102 Calcium Level 8.4 Medications Medications Current Medications Acetaminophen (Tylenol Tab) 650 mg Q6H PRN GTB PAIN AND OR ELEVATED TEMP; Start 11/18/16 at 23:30 Aspirin (Aspirin) 81 mg DAILY GTB Last administered on 11/20/16 09:00; Admin Dose 81 MG; Start 11/19/16 at 09:00 Atorvastatin Calcium (Lipitor) 40 mg QHS GTB Last administered on 11/19/16 21: 59; Admin Dose 40 MG; Start 11/19/16 at 21:00 Benazepril HCl (Lotensin) 10 mg DAILY GTB Last administered on 11/20/16 09:02 ; Admin Dose 10 MG; Start 11/19/16 at 09:00 Docusate Sodium (Colace Liquid Cup) 200 mg DAILY PRN GTB CONSTIPATION; Start at 23:30 Famotidine (Pepcid) 20 mg DAILY GTB Last administered on 11/20/16 09:00; Admin Dose 20 MG; Start 11/19/16 at 09:00 Ferrous Sulfate (Feosol Liquid Cup) 330 mg DAILY GTB Last administered on 09:00; Admin Dose 330 MG; Start 11/19/16 at 09:00 Hydralazine HCl (Apresoline) 25 mg Q6H PRN GTB ELEVATED BLOOD PRESSURE; Start 11/18/16 at 23:30 Metoprolol Tartrate (Lopressor) 25 mg BID GTB Last administered on 11/20/16 09 :02; Admin Dose 25 MG; Start 11/18/16 at 23:30 Mineral Oil (Fleet Mineral Oil Enema) 133 ml DAILY PRN [place] CONSTIPATION; Start 11/18/16 at 23:30 Multivitamins Therapeutic (Theragran) 1 tab DAILY PO Last administered on 09:00; Admin Dose 1 TAB; Start 11/19/16 at 09:00 Ondansetron HCl (Zofran Tab) 4 mg Q4H PRN GTB NAUSEA AND/OR VOMITING; Start at 23:30 Potassium Chloride (KCl Liq (Ped)) 40 meq DAILY GTB Last administered on 09:01; Admin Dose 40 MEQ; Start 11/19/16 at 09:00 Sodium Chloride (Nacl) 1 gm TID GTB Last administered on 11/20/16 09:00; Admin Dose 1 GM; Start 11/19/16 at 09:00 Tamsulosin HCl (Flomax) 0.4 mg HS PO Last administered on 11/19/16 21:59; Admin Dose 0.4 MG; Start 11/19/16 at 21:00 Glucagon (Glucagen) 1 mg DAILY PRN IM LOW GLUCOSE; Start 11/18/16 at 23:30 Insulin Detemir (Levemir) 16 unit BID SC Last administered on 11/20/16 09:29; Admin Dose 16 UNIT; Start 11/19/16 at 09:00 Miscellaneous Information 1 ea NOTE XX ; Start 11/18/16 at 23:45 Glucose (Glutose) 15 gm Q15M PRN PO DECREASED GLUCOSE; Start 11/18/16 at 23:45 Glucose (Glutose) 22.5 gm Q15M PRN PO DECREASED GLUCOSE; Start 11/18/16 at 23: 45 Dextrose (D50w Syringe) 25 ml Q15M PRN IV DECREASED GLUCOSE; Start 11/18/16 at 23:45 Dextrose (D50w Syringe) 50 ml Q15M PRN IV DECREASED GLUCOSE; Start 11/18/16 at 23:45 Glucagon (Glucagen) 1 mg Q15M PRN IM DECREASED GLUCOSE; Start 11/18/16 at 23:45 Glucose (Glutose) 15 gm Q15M PRN BUCCAL DECREASED GLUCOSE; Start 11/18/16 at 23 :45 Diagnostic Test (Pha) (Accu-Chek) 1 ea Q6 XX ; Start 11/20/16 at 00:00 Insulin Aspart (Novolog Insulin Pen) NOVOLOG *MILD* ALGORITHM Q6 SC Last administered on 11/20/16t 00:39; Admin Dose 1 UNIT; Start 11/20/16 at 00:00 LISSA PARK MD Nov 20, 2016 11:14
--- NOTE | 2016-11-20 11:57 | CONS ---
Date/Time of Note Date/Time of Note DATE: 11/20/16 TIME: 11:54 Assessment/Plan Assessment/Plan Additional Assessment/Plan Ventilator settings; AC of 14, tidal volume 500, PEEP of 5, 30% FiO2. Assessment recommendations; 1. Patient admitted for hyponatremia with interval improvement. 2. Chronic respiratory failure, status post anoxic encephalopathy. Status post craniotomy. 3. Hypertension. 4. Diabetes. 5. Recent UTI and sepsis. Continue current treatment. [facility] Consultation Date/Type/Reason Admit Date/Time Nov 18, 2016 at 02:08 Initial Consult Date 11/19/16 Type of Consultation: Pulmonary/critical care Referring Provider: JENELLE COLBY MD 24 HR Interval Summary Free Text/Dictation Patient condition remains unchanged. Has remained hemodynamically stable. No untoward events reported. General exam; middle-aged man, on ventilator via tracheostomy currently in no distress. Patient is unresponsive. Exam/Review of Systems Vital Signs Vitals Vital Signs Date Time Temp Pulse Resp B/P Pulse Ox O2 Delivery O2 Flow Rate FiO2 11/20/16 11:04 65 12 98 30 11/20/16 07:07 97.6 130/73 11/18/16 19:09 Mechanical Ventilator Intake and Output 11/19/16 11/19/16 11/20/16 15:00 23:00 07:00 Intake Total 1015 ml 735 ml Output Total 3000 ml 1800 ml Balance -1985 ml -1065 ml Exam HEENT examination; supple neck, no JVD. No lymphadenopathy. Midline trachea. No thyromegaly. Tracheostomy in place. Pupils are midsize reactive to light. There is a well-healed frontal scar. Chest examination; clear to auscultation bilaterally. S1-S2 audible, no murmurs. Regular rhythm. Abdomen examination; soft, nondistended. No organomegaly. Bowel sounds audible. G-tube in place. Extremity examination; no peripheral edema. IMPROVEMENT COORDINATOR examination; patient remains unresponsive. Results Result Diagram: 11/20/16 0410 11/20/16 0410 Results 24 hrs Laboratory Tests Test 11/19/16 13:50 11/19/16 17:20 11/19/16 19:30 11/19/16 22:02 Sodium Level 126 L 135 Aspartate Amino Transf (AST/SGOT) 98 H Alanine Aminotransferase (ALT/SGPT) 95 H Urine Osmolality 97 L Urine Random Sodium 14 L Bedside Glucose 176 Test 11/20/16 00:29 11/20/16 04:10 11/20/16 06:29 Bedside Glucose 185 96 White Blood Count 6.5 Red Blood Count 3.45 L Hemoglobin 10.2 L Hematocrit 30.7 L Mean Corpuscular Volume 89.0 Mean Corpuscular Hemoglobin 29.6 Mean Corpuscular Hemoglobin Concent 33.2 Red Cell Distribution Width 16.8 H Platelet Count 297 Mean Platelet Volume 9.4 Neutrophils % 74.2 Lymphocytes % 7.6 L Monocytes % 15.0 H Eosinophils % 1.4 Basophils % 0.9 Nucleated Red Blood Cells % 0.0 Neutrophils # 4.8 Lymphocytes # 0.5 L Monocytes # 1.0 H Eosinophils # 0.1 Basophils # 0.1 Nucleated Red Blood Cells # 0.0 Sodium Level 141 Potassium Level 4.1 Chloride Level 104 # Carbon Dioxide Level 31 Anion Gap 10 Blood Urea Nitrogen 10 Creatinine 0.31 L Glucose Level 102 Calcium Level 8.4 Medications Medications Current Medications Acetaminophen (Tylenol Tab) 650 mg Q6H PRN GTB PAIN AND OR ELEVATED TEMP; Start 11/18/16 at 23:30 Aspirin (Aspirin) 81 mg DAILY GTB Last administered on 11/20/16 09:00; Admin Dose 81 MG; Start 11/19/16 at 09:00 Atorvastatin Calcium (Lipitor) 40 mg QHS GTB Last administered on 11/19/16 21: 59; Admin Dose 40 MG; Start 11/19/16 at 21:00 Benazepril HCl (Lotensin) 10 mg DAILY GTB Last administered on 11/20/16 09:02 ; Admin Dose 10 MG; Start 11/19/16 at 09:00 Docusate Sodium (Colace Liquid Cup) 200 mg DAILY PRN GTB CONSTIPATION; Start at 23:30 Famotidine (Pepcid) 20 mg DAILY GTB Last administered on 11/20/16 09:00; Admin Dose 20 MG; Start 11/19/16 at 09:00 Ferrous Sulfate (Feosol Liquid Cup) 330 mg DAILY GTB Last administered on 09:00; Admin Dose 330 MG; Start 11/19/16 at 09:00 Hydralazine HCl (Apresoline) 25 mg Q6H PRN GTB ELEVATED BLOOD PRESSURE; Start 11/18/16 at 23:30 Metoprolol Tartrate (Lopressor) 25 mg BID GTB Last administered on 11/20/16 09 :02; Admin Dose 25 MG; Start 11/18/16 at 23:30 Mineral Oil (Fleet Mineral Oil Enema) 133 ml DAILY PRN [place] CONSTIPATION; Start 11/18/16 at 23:30 Multivitamins Therapeutic (Theragran) 1 tab DAILY PO Last administered on 09:00; Admin Dose 1 TAB; Start 11/19/16 at 09:00 Ondansetron HCl (Zofran Tab) 4 mg Q4H PRN GTB NAUSEA AND/OR VOMITING; Start at 23:30 Potassium Chloride (KCl Liq (Ped)) 40 meq DAILY GTB Last administered on 09:01; Admin Dose 40 MEQ; Start 11/19/16 at 09:00 Sodium Chloride (Nacl) 1 gm TID GTB Last administered on 11/20/16 09:00; Admin Dose 1 GM; Start 11/19/16 at 09:00 Tamsulosin HCl (Flomax) 0.4 mg HS PO Last administered on 11/19/16 21:59; Admin Dose 0.4 MG; Start 11/19/16 at 21:00 Glucagon (Glucagen) 1 mg DAILY PRN IM LOW GLUCOSE; Start 11/18/16 at 23:30 Insulin Detemir (Levemir) 16 unit BID SC Last administered on 11/20/16 09:29; Admin Dose 16 UNIT; Start 11/19/16 at 09:00 Miscellaneous Information 1 ea NOTE XX ; Start 11/18/16 at 23:45 Glucose (Glutose) 15 gm Q15M PRN PO DECREASED GLUCOSE; Start 11/18/16 at 23:45 Glucose (Glutose) 22.5 gm Q15M PRN PO DECREASED GLUCOSE; Start 11/18/16 at 23: 45 Dextrose (D50w Syringe) 25 ml Q15M PRN IV DECREASED GLUCOSE; Start 11/18/16 at 23:45 Dextrose (D50w Syringe) 50 ml Q15M PRN IV DECREASED GLUCOSE; Start 11/18/16 at 23:45 Glucagon (Glucagen) 1 mg Q15M PRN IM DECREASED GLUCOSE; Start 11/18/16 at 23:45 Glucose (Glutose) 15 gm Q15M PRN BUCCAL DECREASED GLUCOSE; Start 11/18/16 at 23 :45 Diagnostic Test (Pha) (Accu-Chek) 1 ea Q6 XX ; Start 11/20/16 at 00:00 Insulin Aspart (Novolog Insulin Pen) NOVOLOG *MILD* ALGORITHM Q6 SC Last administered on 11/20/16t 00:39; Admin Dose 1 UNIT; Start 11/20/16 at 00:00 JUANA DE LEÓN Nov 20, 2016 11:56
--- NOTE | 2016-11-20 16:40 | PN ---
Date/Time of Note Date/Time of Note DATE: 11/20/16 TIME: 16:29 Assessment/Plan VTE Prophylaxis VTE Prophylaxis Intervention: SCD's Lines/Catheters IV [facility] Saline Lock Urinary Cath still in place: Yes Reason Cath still needed: urinary retention Assessment/Plan Chief Complaint/Hosp Course ASSESSMENT AND PLAN: 1. Acute on chronic hyponatremia secondary to syndrome of inappropriate antidiuretic hormone. Dr. Tovar is following in nephrology consultation. Continue to monitor sodium. 2. Ventilator-dependent respiratory failure. Continue ventilatory support. Dr. Clarke is following the patient in pulmonology consultation. Continue bronchodilators. 3. Brainstem glioma, status post ventriculoperitoneal shunt placement. Dr. Anand is asked to see patient in palliative care. 4. Status post cerebrovascular accident. 5. Chronic encephalopathy. 6. Seizure disorder. Continue Keppra. 7. Dysphagia with G-tube. 8. Transaminitis. The patient is getting an abdominal ultrasound. Dr. Mas to follow up the patient in gastroenterology consultation. 9. Diabetes mellitus type 2. Continue NovoLog and Lantus. 10. Hypertension. Continue benazepril 11. Hyperlipidemia, continue Lipitor. 12. Bedridden status with functional quadriplegia. Continue to assist patient with activities of daily living. 13. Multiple pressure sores present on admission. Continue current wound care. Continue sequential compression device for deep venous thrombosis prophylaxis. Prevacid for peptic ulcer disease prophylaxis. Further recommendations based on clinical course. Plan of care discussed with Dr. Desir. Problems: Subjective 24 Hr Interval Summary Free Text/Dictation No acute events overnight, sinus rhythm on telemetry, patient remains afebrile, on ventilatory support. Exam/Review of Systems Vital Signs Vitals Vital Signs Date Time Temp Pulse Resp B/P Pulse Ox O2 Delivery O2 Flow Rate FiO2 11/20/16 15:56 97.8 70 18 118/62 100 11/20/16 15:45 30 11/18/16 19:09 Mechanical Ventilator Intake and Output 11/19/16 11/19/16 11/20/16 14:59 22:59 06:59 Intake Total 1015 ml 735 ml Output Total 3000 ml 1800 ml Balance -1985 ml -1065 ml Exam PHYSICAL ASSESSMENT GENERAL: A well-developed, obtunded gentleman on ventilator support via tracheostomy. HEENT: Head is atraumatic, normocephalic. PERRLA. NECK: Supple. There is a tracheostomy at the base of the neck. LUNGS: Scattered rhonchi bilaterally. There is no wheezing noted. Slightly diminished at the bases. CARDIOVASCULAR: Normal S1, S2. The patient is slightly tachycardic. No murmurs, gallops, clicks, rubs noted. ABDOMEN: Round, soft, nondistended, nontender. Patient has a G-tube. EXTREMITIES: Mild edema. There is no clubbing or cyanosis. SKIN: Patient has multiple pressure ulcers present on admission including a right heel and buttocks. NEUROLOGIC: Patient is obtunded, does not follow any commands, did not move any extremities. Results Result Diagram: 11/20/16 0410 11/20/16 0410 Results 24 hrs Laboratory Tests Test 11/19/16 17:20 11/19/16 19:30 11/19/16 22:02 11/20/16 00:29 Urine Osmolality 97 L Urine Random Sodium 14 L Sodium Level 135 Bedside Glucose 176 185 Test 11/20/16 04:10 11/20/16 06:29 11/20/16 12:20 White Blood Count 6.5 Red Blood Count 3.45 L Hemoglobin 10.2 L Hematocrit 30.7 L Mean Corpuscular Volume 89.0 Mean Corpuscular Hemoglobin 29.6 Mean Corpuscular Hemoglobin Concent 33.2 Red Cell Distribution Width 16.8 H Platelet Count 297 Mean Platelet Volume 9.4 Neutrophils % 74.2 Lymphocytes % 7.6 L Monocytes % 15.0 H Eosinophils % 1.4 Basophils % 0.9 Nucleated Red Blood Cells % 0.0 Neutrophils # 4.8 Lymphocytes # 0.5 L Monocytes # 1.0 H Eosinophils # 0.1 Basophils # 0.1 Nucleated Red Blood Cells # 0.0 Sodium Level 141 Potassium Level 4.1 Chloride Level 104 # Carbon Dioxide Level 31 Anion Gap 10 Blood Urea Nitrogen 10 Creatinine 0.31 L Glucose Level 102 Calcium Level 8.4 Bedside Glucose 96 109 Medications Medications Current Medications Acetaminophen (Tylenol Tab) 650 mg Q6H PRN GTB PAIN AND OR ELEVATED TEMP; Start 11/18/16 at 23:30 Aspirin (Aspirin) 81 mg DAILY GTB Last administered on 11/20/16t 09:00; Admin Dose 81 MG; Start 11/19/16 at 09:00 Atorvastatin Calcium (Lipitor) 40 mg QHS GTB Last administered on 11/19/16 21: 59; Admin Dose 40 MG; Start 11/19/16 at 21:00 Benazepril HCl (Lotensin) 10 mg DAILY GTB Last administered on 11/20/16 09:02 ; Admin Dose 10 MG; Start 11/19/16 at 09:00 Docusate Sodium (Colace Liquid Cup) 200 mg DAILY PRN GTB CONSTIPATION; Start at 23:30 Famotidine (Pepcid) 20 mg DAILY GTB Last administered on 11/20/16 09:00; Admin Dose 20 MG; Start 11/19/16 at 09:00 Ferrous Sulfate (Feosol Liquid Cup) 330 mg DAILY GTB Last administered on 09:00; Admin Dose 330 MG; Start 11/19/16 at 09:00 Hydralazine HCl (Apresoline) 25 mg Q6H PRN GTB ELEVATED BLOOD PRESSURE; Start 11/18/16 at 23:30 Metoprolol Tartrate (Lopressor) 25 mg BID GTB Last administered on 11/20/16 09 :02; Admin Dose 25 MG; Start 11/18/16 at 23:30 Mineral Oil (Fleet Mineral Oil Enema) 133 ml DAILY PRN [place] CONSTIPATION; Start 11/18/16 at 23:30 Multivitamins Therapeutic (Theragran) 1 tab DAILY PO Last administered on 09:00; Admin Dose 1 TAB; Start 11/19/16 at 09:00 Ondansetron HCl (Zofran Tab) 4 mg Q4H PRN GTB NAUSEA AND/OR VOMITING; Start at 23:30 Potassium Chloride (KCl Liq (Ped)) 40 meq DAILY GTB Last administered on 09:01; Admin Dose 40 MEQ; Start 11/19/16 at 09:00 Sodium Chloride (Nacl) 1 gm TID GTB Last administered on 11/20/16 12:23; Admin Dose 1 GM; Start 11/19/16 at 09:00 Tamsulosin HCl (Flomax) 0.4 mg HS PO Last administered on 11/19/16 21:59; Admin Dose 0.4 MG; Start 11/19/16 at 21:00 Glucagon (Glucagen) 1 mg DAILY PRN IM LOW GLUCOSE; Start 11/18/16 at 23:30 Insulin Detemir (Levemir) 16 unit BID SC Last administered on 11/20/16 09:29; Admin Dose 16 UNIT; Start 11/19/16 at 09:00 Miscellaneous Information 1 ea NOTE XX ; Start 11/18/16 at 23:45 Glucose (Glutose) 15 gm Q15M PRN PO DECREASED GLUCOSE; Start 11/18/16 at 23:45 Glucose (Glutose) 22.5 gm Q15M PRN PO DECREASED GLUCOSE; Start 11/18/16 at 23: 45 Dextrose (D50w Syringe) 25 ml Q15M PRN IV DECREASED GLUCOSE; Start 11/18/16 at 23:45 Dextrose (D50w Syringe) 50 ml Q15M PRN IV DECREASED GLUCOSE; Start 11/18/16 at 23:45 Glucagon (Glucagen) 1 mg Q15M PRN IM DECREASED GLUCOSE; Start 11/18/16 at 23:45 Glucose (Glutose) 15 gm Q15M PRN BUCCAL DECREASED GLUCOSE; Start 11/18/16 at 23 :45 Diagnostic Test (Pha) (Accu-Chek) 1 ea Q6 XX Last administered on 11/20/16 12: 23; Admin Dose 1 EA; Start 11/20/16 at 00:00 Insulin Aspart (Novolog Insulin Pen) NOVOLOG *MILD* ALGORITHM Q6 SC Last administered on 11/20/16 00:39; Admin Dose 1 UNIT; Start 11/20/16 at 00:00 ALTHEA ACOSTA Nov 20, 2016 16:39
[2016-11-20] MEDS: DEXTROSE 50% 50 ML SYRINGE IV PRN (18:41)
[2016-11-20] MEDS: TAMSULOSIN (SR) 0.4 MG CAP PO SCH (21:45)
[2016-11-20] MEDS: ATORVASTATIN 40 MG TAB GTB SCH (21:45)
[2016-11-21] VITALS (24 sets, daily range): BP systolic 110–149; BP diastolic 57–72; PULSE 55–69; RESP 12–20
[2016-11-21] MEDS: ACCU-CHEK XX SCH ×4 (06:00→17:43)
[2016-11-21] MEDS: INSULIN ASPART [NOVOLOG] 3 ML PEN SC SCH ×4 (06:00→17:43)
[2016-11-21] MEDS: DEXTROSE 50% 50 ML SYRINGE IV PRN (06:27)
[2016-11-21 07:41] LABS: ADD SCAN DIFF NO
[2016-11-21 07:42] LABS: BASOPHIL # 0.1 10^3/ul (0.0-0.1); BASOPHILS % 0.8 % (0.0-2.0); EOSINOPHILS # 0.1 10^3/ul (0.0-0.5); EOSINOPHILS % 1.3 % (0.0-7.0); HEMATOCRIT 29.9 % (42.0-52.0); HEMOGLOBIN 9.7 g/dl (14.0-18.0); LYMPHOCYTES # 1.4 10^3/ul (0.8-2.9); LYMPHOCYTES % 16.2 % (15.0-51.0); MEAN CORPUSCULAR HEMOGLOBIN 29.2 pg (29.0-33.0); MEAN CORPUSCULAR HGB CONC 32.4 g/dl (32.0-37.0); MEAN CORPUSCULAR VOLUME 90.1 fl (82.0-101.0); MEAN PLATELET VOLUME 9.5 fl (7.4-10.4); MONOCYTE # 0.9 10^3/ul (0.3-0.9); MONOCYTES % 11.1 % (0.0-11.0); NEUTROPHIL # 5.9 10^3/ul (1.6-7.5); PLATELET COUNT 290 10^3/UL (140-415); RED BLOOD COUNT 3.32 10^6/ul (4.70-6.10); RED CELL DISTRIBUTION WIDTH 17.4 % (11.5-14.5); WHITE BLOOD COUNT 8.5 10^3/ul (4.8-10.8)
[2016-11-21 07:49] LABS: ALBUMIN 2.7 g/dl (3.3-4.9)
[2016-11-21 07:50] LABS: POTASSIUM 3.8 mmol/L (3.5-5.1)
[2016-11-21 07:52] LABS: ALBUMIN/GLOBULIN RATIO 0.87; BILIRUBIN,INDIRECT 0.2 mg/dl (0-1.1); BILIRUBIN,TOTAL 0.2 mg/dl (0.2-1.3); CREATININE 0.3 mg/dl (0.61-1.24); TOTAL PROTEIN 5.8 g/dl (6.1-8.1)
[2016-11-21 07:53] LABS: CALCIUM 8.6 mg/dl (8.4-10.2)
[2016-11-21] MEDS: SODIUM CHLORIDE 1 GM TAB GTB SCH ×3 (08:21→20:39)
[2016-11-21] MEDS: FERROUS SULFATE 60 MG/ML 5ML CUP GTB SCH (08:21)
[2016-11-21] MEDS: BENAZEPRIL 10 MG TAB GTB SCH (08:22)
[2016-11-21] MEDS: METOPROLOL 25 MG TAB GTB SCH ×2 (08:22→20:39)
[2016-11-21] MEDS: MULTIVITAMINS THERAPEUTIC TAB PO SCH (08:22)
[2016-11-21] MEDS: FAMOTIDINE 20 MG TAB GTB SCH (08:22)
[2016-11-21] MEDS: ASPIRIN 81 MG TAB GTB SCH (08:22)
[2016-11-21] MEDS: POTASSIUM CHLORIDE (1.33 MEQ/ML PO SYG) GTB SCH (08:23)
[2016-11-21] MEDS: INSULIN DETEMIR [LEVEMIR] 3ML CART SC SCH ×2 (08:39→20:40)
--- NOTE | 2016-11-21 12:00 | CONS ---
Date/Time of Note Date/Time of Note DATE: 11/21/16 TIME: 11:58 Assessment/Plan Assessment/Plan Additional Assessment/Plan 1. Severe hyponatremia, acute on chronic hyponatremia secondary to syndrome of inappropriate antidiuretic hormone with some prerenal azotemia. 2. History of possible chronic hyponatremia secondary to syndrome of inappropriate antidiuretic hormone. The patient has been on demeclocycline 300 mg p.o. b.i.d., maximum dose, unresponsive. Tolvaptan was not covered in the senior care facility. 3. History of hypertension. 4. History of diabetes mellitus. 5. Chronic encephalopathy. 6. 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 7. History of G-tube in place. plan: demeclocycline stopped, on soidum chloride tablet 1 gram PO TID Na improved with tolvaptan, now will monitor Na and use tolvaptan as needed due to mildly elevated LFTs on labs today wrapper caser consult to check if Tolvaptan covered for patient at group home [facility] will follow up Consultation Date/Type/Reason Admit Date/Time Nov 18, 2016 at 15:20 Initial Consult Date 11/18/16 Type of Consultation: NEPHROLOGY Reason for Consultation hyponatremia Referring Provider: JENELLE COLBY MD 24 HR Interval Summary Free Text/Dictation Na stable, on Na chloride tablet, off demeclocycline Exam/Review of Systems Vital Signs Vitals Vital Signs Date Time Temp Pulse Resp B/P Pulse Ox O2 Delivery O2 Flow Rate FiO2 11/21/16 11:15 55 12 100 90 11/21/16 07:58 98.2 140/72 11/18/16 19:09 Mechanical Ventilator Intake and Output 11/20/16 11/20/16 11/21/16 15:00 23:00 07:00 Intake Total 1180 ml 980 ml Output Total 1100 ml 500 ml Balance 80 ml 480 ml Exam GENERAL: The patient is nonverbal and noncommunicative. HEENT: Pupils equal and reactive to light. NECK: Status post tracheostomy, on ventilator. Neck is supple. Site is clear. No erythema, no discharge. LUNGS: Bilateral coarse breath sounds heard. No wheezing. HEART: S1, S2, tachycardia, no murmur. ABDOMEN: Soft. G-tube site is clear. No leaking, no discharge. Erythema around the G-tube. EXTREMITIES: 1+ pitting edema in the right ankle. SKIN: The patient has some pressure ulcers on admissions including the right heel and buttocks. NEUROLOGICAL: Uncooperative for examination secondary to chronic encephalopathy. Results Result Diagram: 11/21/16 0605 11/21/16 0510 Results 24 hrs Laboratory Tests Test 11/20/16 12:20 11/20/16 17:57 11/20/16 18:37 11/20/16 19:01 Bedside Glucose 109 69 L 67 L 88 Test 11/20/16 21:40 11/21/16 00:04 11/21/16 05:10 11/21/16 06:05 Bedside Glucose 101 98 Sodium Level 138 Potassium Level 3.8 Chloride Level 102 Carbon Dioxide Level 31 Anion Gap 9 Blood Urea Nitrogen 15 Creatinine 0.30 L Glucose Level 56 #L Calcium Level 8.6 Total Bilirubin 0.2 Direct Bilirubin 0.00 Indirect Bilirubin 0.2 Aspartate Amino Transf (AST/SGOT) 100 H Alanine Aminotransferase (ALT/SGPT) 95 H Alkaline Phosphatase 192 H Total Protein 5.8 L Albumin 2.7 L Globulin 3.10 Albumin/Globulin Ratio 0.87 White Blood Count 8.5 # Red Blood Count 3.32 L Hemoglobin 9.7 L Hematocrit 29.9 L Mean Corpuscular Volume 90.1 Mean Corpuscular Hemoglobin 29.2 Mean Corpuscular Hemoglobin Concent 32.4 Red Cell Distribution Width 17.4 H Platelet Count 290 Mean Platelet Volume 9.5 Neutrophils % 70.0 Lymphocytes % 16.2 Monocytes % 11.1 H Eosinophils % 1.3 Basophils % 0.8 Nucleated Red Blood Cells % 0.0 Neutrophils # 5.9 Lymphocytes # 1.4 Monocytes # 0.9 Eosinophils # 0.1 Basophils # 0.1 Nucleated Red Blood Cells # 0.0 Test 11/21/16 06:45 Bedside Glucose 119 Medications Medications Current Medications Acetaminophen (Tylenol Tab) 650 mg Q6H PRN GTB PAIN AND OR ELEVATED TEMP; Start 11/18/16 at 23:30 Aspirin (Aspirin) 81 mg DAILY GTB Last administered on 11/21/16 08:22; Admin Dose 81 MG; Start 11/19/16 at 09:00 Atorvastatin Calcium (Lipitor) 40 mg QHS GTB Last administered on 11/20/16 21: 45; Admin Dose 40 MG; Start 11/19/16 at 21:00 Benazepril HCl (Lotensin) 10 mg DAILY GTB Last administered on 11/21/16 08:22 ; Admin Dose 10 MG; Start 11/19/16 at 09:00 Docusate Sodium (Colace Liquid Cup) 200 mg DAILY PRN GTB CONSTIPATION; Start at 23:30 Famotidine (Pepcid) 20 mg DAILY GTB Last administered on 11/21/16 08:22; Admin Dose 20 MG; Start 11/19/16 at 09:00 Ferrous Sulfate (Feosol Liquid Cup) 330 mg DAILY GTB Last administered on 08:21; Admin Dose 330 MG; Start 11/19/16 at 09:00 Hydralazine HCl (Apresoline) 25 mg Q6H PRN GTB ELEVATED BLOOD PRESSURE; Start 11/18/16 at 23:30 Metoprolol Tartrate (Lopressor) 25 mg BID GTB Last administered on 11/21/16 08 :22; Admin Dose 25 MG; Start 11/18/16 at 23:30 Mineral Oil (Fleet Mineral Oil Enema) 133 ml DAILY PRN [place] CONSTIPATION; Start 11/18/16 at 23:30 Multivitamins Therapeutic (Theragran) 1 tab DAILY PO Last administered on 08:22; Admin Dose 1 TAB; Start 11/19/16 at 09:00 Ondansetron HCl (Zofran Tab) 4 mg Q4H PRN GTB NAUSEA AND/OR VOMITING; Start at 23:30 Potassium Chloride (KCl Liq (Ped)) 40 meq DAILY GTB Last administered on 08:23; Admin Dose 40 MEQ; Start 11/19/16 at 09:00 Sodium Chloride (Nacl) 1 gm TID GTB Last administered on 11/21/16 08:21; Admin Dose 1 GM; Start 11/19/16 at 09:00 Tamsulosin HCl (Flomax) 0.4 mg HS PO Last administered on 11/20/16 21:45; Admin Dose 0.4 MG; Start 11/19/16 at 21:00 Glucagon (Glucagen) 1 mg DAILY PRN IM LOW GLUCOSE; Start 11/18/16 at 23:30 Miscellaneous Information 1 ea NOTE XX ; Start 11/18/16 at 23:45 Glucose (Glutose) 15 gm Q15M PRN PO DECREASED GLUCOSE; Start 11/18/16 at 23:45 Glucose (Glutose) 22.5 gm Q15M PRN PO DECREASED GLUCOSE; Start 11/18/16 at 23: 45 Dextrose (D50w Syringe) 25 ml Q15M PRN IV DECREASED GLUCOSE Last administered on 11/21/16 06:27; Admin Dose 25 ML; Start 11/18/16 at 23:45 Dextrose (D50w Syringe) 50 ml Q15M PRN IV DECREASED GLUCOSE; Start 11/18/16 at 23:45 Glucagon (Glucagen) 1 mg Q15M PRN IM DECREASED GLUCOSE; Start 11/18/16 at 23:45 Glucose (Glutose) 15 gm Q15M PRN BUCCAL DECREASED GLUCOSE; Start 11/18/16 at 23 :45 Diagnostic Test (Pha) (Accu-Chek) 1 ea Q6 XX Last administered on 11/20/16 18: 14; Admin Dose 1 EA; Start 11/20/16 at 00:00 Insulin Aspart (Novolog Insulin Pen) NOVOLOG *MILD* ALGORITHM Q6 SC Last administered on 11/20/16 00:39; Admin Dose 1 UNIT; Start 11/20/16 at 00:00 Insulin Detemir (Levemir) 10 unit BID SC Last administered on 11/21/16 08:39; Admin Dose 10 UNIT; Start 11/20/16 at 21:00 LISSA PARK MD Nov 21, 2016 12:00
--- NOTE | 2016-11-21 12:04 | PN ---
Date/Time of Note Date/Time of Note DATE: 11/21/16 TIME: 12:02 Assessment/Plan VTE Prophylaxis VTE Prophylaxis Intervention: SCD's, other Lines/Catheters IV Catheter Type (from [facility]): [facility] Urinary Cath still in place: Yes Assessment/Plan Assessment/Plan 1. Acute on chronic hyponatremia secondary to syndrome of inappropriate antidiuretic hormone. Dr. Tovar is following in nephrology consultation. Continue to monitor sodium. 2. Ventilator-dependent respiratory failure. Continue ventilatory support. Dr. Clarke is following the patient in pulmonology consultation. Continue bronchodilators. 3. Brainstem glioma, status post ventriculoperitoneal shunt placement. Dr. Anand is asked to see patient in palliative care. 4. Status post cerebrovascular accident. 5. Chronic encephalopathy. 6. Seizure disorder. Continue Keppra. 7. Dysphagia with G-tube. 8. Transaminitis. The patient is getting an abdominal ultrasound. Dr. Mas to follow up the patient in gastroenterology consultation. 9. Diabetes mellitus type 2. Continue NovoLog and Lantus. 10. Hypertension. Continue benazepril 11. Hyperlipidemia, continue Lipitor. 12. Bedridden status with functional quadriplegia. Continue to assist patient with activities of daily living. 13. Multiple pressure sores present on admission. Continue current wound care. Continue sequential compression device for deep venous thrombosis prophylaxis.Prevacid for peptic ulcer disease prophylaxis. Further recommendations based on clinical course. Plan of care discussed with Dr. Desir. Subjective 24 Hr Interval Summary Subjective hx not possible: pt non-verbal Constitutional: requiring O2 Exam/Review of Systems Vital Signs Vitals Vital Signs Date Time Temp Pulse Resp B/P Pulse Ox O2 Delivery O2 Flow Rate FiO2 11/21/16 11:15 55 12 100 90 11/21/16 07:58 98.2 140/72 11/18/16 19:09 Mechanical Ventilator Intake and Output 11/20/16 11/20/16 11/21/16 15:00 23:00 07:00 Intake Total 1180 ml 980 ml Output Total 1100 ml 500 ml Balance 80 ml 480 ml Exam Constitutional: non-verbal Eyes: nl sclera, other ENMT: nl external ears & nose Neck: non-tender Respiratory: diminished breath sounds Cardiovascular: nl pulses Gastrointestinal: non-tender, soft Musculoskeletal: muscle weakness Neurological: other, unresponsive Skin: other Results Result Diagram: 11/21/16 0605 11/21/16 0510 Results 24 hrs Laboratory Tests Test 11/20/16 12:20 11/20/16 17:57 11/20/16 18:37 11/20/16 19:01 Bedside Glucose 109 69 L 67 L 88 Test 11/20/16 21:40 11/21/16 00:04 11/21/16 05:10 11/21/16 06:05 Bedside Glucose 101 98 Sodium Level 138 Potassium Level 3.8 Chloride Level 102 Carbon Dioxide Level 31 Anion Gap 9 Blood Urea Nitrogen 15 Creatinine 0.30 L Glucose Level 56 #L Calcium Level 8.6 Total Bilirubin 0.2 Direct Bilirubin 0.00 Indirect Bilirubin 0.2 Aspartate Amino Transf (AST/SGOT) 100 H Alanine Aminotransferase (ALT/SGPT) 95 H Alkaline Phosphatase 192 H Total Protein 5.8 L Albumin 2.7 L Globulin 3.10 Albumin/Globulin Ratio 0.87 White Blood Count 8.5 # Red Blood Count 3.32 L Hemoglobin 9.7 L Hematocrit 29.9 L Mean Corpuscular Volume 90.1 Mean Corpuscular Hemoglobin 29.2 Mean Corpuscular Hemoglobin Concent 32.4 Red Cell Distribution Width 17.4 H Platelet Count 290 Mean Platelet Volume 9.5 Neutrophils % 70.0 Lymphocytes % 16.2 Monocytes % 11.1 H Eosinophils % 1.3 Basophils % 0.8 Nucleated Red Blood Cells % 0.0 Neutrophils # 5.9 Lymphocytes # 1.4 Monocytes # 0.9 Eosinophils # 0.1 Basophils # 0.1 Nucleated Red Blood Cells # 0.0 Test 11/21/16 06:45 Bedside Glucose 119 Medications Medications Current Medications Acetaminophen (Tylenol Tab) 650 mg Q6H PRN GTB PAIN AND OR ELEVATED TEMP; Start 11/18/16 at 23:30 Aspirin (Aspirin) 81 mg DAILY GTB Last administered on 11/21/16 08:22; Admin Dose 81 MG; Start 11/19/16 at 09:00 Atorvastatin Calcium (Lipitor) 40 mg QHS GTB Last administered on 11/20/16 21: 45; Admin Dose 40 MG; Start 11/19/16 at 21:00 Benazepril HCl (Lotensin) 10 mg DAILY GTB Last administered on 11/21/16 08:22 ; Admin Dose 10 MG; Start 11/19/16 at 09:00 Docusate Sodium (Colace Liquid Cup) 200 mg DAILY PRN GTB CONSTIPATION; Start at 23:30 Famotidine (Pepcid) 20 mg DAILY GTB Last administered on 11/21/16 08:22; Admin Dose 20 MG; Start 11/19/16 at 09:00 Ferrous Sulfate (Feosol Liquid Cup) 330 mg DAILY GTB Last administered on 08:21; Admin Dose 330 MG; Start 11/19/16 at 09:00 Hydralazine HCl (Apresoline) 25 mg Q6H PRN GTB ELEVATED BLOOD PRESSURE; Start 11/18/16 at 23:30 Metoprolol Tartrate (Lopressor) 25 mg BID GTB Last administered on 11/21/16 08 :22; Admin Dose 25 MG; Start 11/18/16 at 23:30 Mineral Oil (Fleet Mineral Oil Enema) 133 ml DAILY PRN [place] CONSTIPATION; Start 11/18/16 at 23:30 Multivitamins Therapeutic (Theragran) 1 tab DAILY PO Last administered on 08:22; Admin Dose 1 TAB; Start 11/19/16 at 09:00 Ondansetron HCl (Zofran Tab) 4 mg Q4H PRN GTB NAUSEA AND/OR VOMITING; Start at 23:30 Potassium Chloride (KCl Liq (Ped)) 40 meq DAILY GTB Last administered on 08:23; Admin Dose 40 MEQ; Start 11/19/16 at 09:00 Sodium Chloride (Nacl) 1 gm TID GTB Last administered on 11/21/16 08:21; Admin Dose 1 GM; Start 11/19/16 at 09:00 Tamsulosin HCl (Flomax) 0.4 mg HS PO Last administered on 11/20/16 21:45; Admin Dose 0.4 MG; Start 11/19/16 at 21:00 Glucagon (Glucagen) 1 mg DAILY PRN IM LOW GLUCOSE; Start 11/18/16 at 23:30 Miscellaneous Information 1 ea NOTE XX ; Start 11/18/16 at 23:45 Glucose (Glutose) 15 gm Q15M PRN PO DECREASED GLUCOSE; Start 11/18/16 at 23:45 Glucose (Glutose) 22.5 gm Q15M PRN PO DECREASED GLUCOSE; Start 11/18/16 at 23: 45 Dextrose (D50w Syringe) 25 ml Q15M PRN IV DECREASED GLUCOSE Last administered on 11/21/16 06:27; Admin Dose 25 ML; Start 11/18/16 at 23:45 Dextrose (D50w Syringe) 50 ml Q15M PRN IV DECREASED GLUCOSE; Start 11/18/16 at 23:45 Glucagon (Glucagen) 1 mg Q15M PRN IM DECREASED GLUCOSE; Start 11/18/16 at 23:45 Glucose (Glutose) 15 gm Q15M PRN BUCCAL DECREASED GLUCOSE; Start 11/18/16 at 23 :45 Diagnostic Test (Pha) (Accu-Chek) 1 ea Q6 XX Last administered on 11/20/16 18: 14; Admin Dose 1 EA; Start 11/20/16 at 00:00 Insulin Aspart (Novolog Insulin Pen) NOVOLOG *MILD* ALGORITHM Q6 SC Last administered on 11/20/16 00:39; Admin Dose 1 UNIT; Start 11/20/16 at 00:00 Insulin Detemir (Levemir) 10 unit BID SC Last administered on 11/21/16 08:39; Admin Dose 10 UNIT; Start 11/20/16 at 21:00 KENYATTA CAPPS Nov 21, 2016 12:04
[2016-11-21] MEDS: ATORVASTATIN 40 MG TAB GTB SCH (20:38)
[2016-11-21] MEDS: TAMSULOSIN (SR) 0.4 MG CAP PO SCH (20:39)
[2016-11-22] VITALS (24 sets, daily range): BP systolic 103–139; BP diastolic 55–75; PULSE 57–61; RESP 12–20
[2016-11-22] MEDS: INSULIN ASPART [NOVOLOG] 3 ML PEN SC SCH ×4 (05:49→17:57)
[2016-11-22] MEDS: ACCU-CHEK XX SCH ×4 (05:51→17:57)
[2016-11-22 07:09] LABS: ADD SCAN DIFF NO
[2016-11-22 07:16] LABS: ABNORMAL IP MESSAGE 1; BASOPHIL # 0.1 10^3/ul (0.0-0.1); BASOPHILS % 0.5 % (0.0-2.0); EOSINOPHILS # 0.1 10^3/ul (0.0-0.5); EOSINOPHILS % 1.4 % (0.0-7.0); HEMATOCRIT 27.4 % (42.0-52.0); HEMOGLOBIN 8.9 g/dl (14.0-18.0); LYMPHOCYTES # 0.5 10^3/ul (0.8-2.9); LYMPHOCYTES % 5.5 % (15.0-51.0); MEAN CORPUSCULAR HEMOGLOBIN 29.6 pg (29.0-33.0); MEAN CORPUSCULAR HGB CONC 32.5 g/dl (32.0-37.0); MEAN PLATELET VOLUME 9.9 fl (7.4-10.4); MONOCYTE # 0.8 10^3/ul (0.3-0.9); MONOCYTES % 8.5 % (0.0-11.0); NEUTROPHIL # 8.1 10^3/ul (1.6-7.5); NEUTROPHILS % 83.7 % (39.0-77.0); PLATELET COUNT 243 10^3/UL (140-415); RED BLOOD COUNT 3.01 10^6/ul (4.70-6.10); RED CELL DISTRIBUTION WIDTH 17.5 % (11.5-14.5); WHITE BLOOD COUNT 9.7 10^3/ul (4.8-10.8)
[2016-11-22 07:21] LABS: CALCIUM 8.3 mg/dl (8.4-10.2); CREATININE 0.31 mg/dl (0.61-1.24)
[2016-11-22] MEDS: ASPIRIN 81 MG TAB GTB SCH (08:51)
[2016-11-22] MEDS: MULTIVITAMINS THERAPEUTIC TAB PO SCH (08:52)
[2016-11-22] MEDS: FAMOTIDINE 20 MG TAB GTB SCH (08:52)
[2016-11-22] MEDS: BENAZEPRIL 10 MG TAB GTB SCH (08:52)
[2016-11-22] MEDS: SODIUM CHLORIDE 1 GM TAB GTB SCH ×3 (08:52→21:13)
[2016-11-22] MEDS: METOPROLOL 25 MG TAB GTB SCH ×2 (08:53→21:14)
[2016-11-22] MEDS: FERROUS SULFATE 60 MG/ML 5ML CUP GTB SCH (08:53)
[2016-11-22] MEDS: POTASSIUM CHLORIDE (1.33 MEQ/ML PO SYG) GTB SCH (08:53)
[2016-11-22] MEDS: INSULIN DETEMIR [LEVEMIR] 3ML CART SC SCH ×2 (08:57→21:00)
--- NOTE | 2016-11-22 13:58 | PN ---
Date/Time of Note Date/Time of Note DATE: 11/22/16 TIME: 13:51 Assessment/Plan VTE Prophylaxis VTE Prophylaxis Intervention: other Lines/Catheters [facility] Urinary Cath still in place: Yes Assessment/Plan Assessment/Plan 1. Acute on chronic hyponatremia secondary to syndrome of inappropriate antidiuretic hormone. Dr. Tovar is following in nephrology consultation. Continue to monitor sodium. 2. Ventilator-dependent respiratory failure. Continue ventilatory support. Dr. Clarke is following the patient in pulmonology consultation. Continue bronchodilators. 3. Brainstem glioma, status post ventriculoperitoneal shunt placement. Dr. Anand is asked to see patient in palliative care. 4. Status post cerebrovascular accident. 5. Chronic encephalopathy. 6. Seizure disorder. Continue Keppra. - Seizure precautions 7. Dysphagia with G-tube. 8. Transaminitis. The patient is getting an abdominal ultrasound. Dr. Mas to follow up the patient in gastroenterology consultation. 9. Diabetes mellitus type 2. Continue NovoLog and Lantus. 10. Hypertension. Continue benazepril 11. Hyperlipidemia, continue Lipitor. 12. Bedridden status with functional quadriplegia. Continue to assist patient with activities of daily living. 13. Multiple pressure sores present on admission. Continue current wound care. Continue sequential compression device for deep venous thrombosis prophylaxis.Prevacid for peptic ulcer disease prophylaxis. Further recommendations based on clinical course. Plan of care discussed with Dr. Desir. Subjective 24 Hr Interval Summary Free Text/Dictation NAD, family at [facility] side- all Qs answered. seems comfortable. dw staff- no acute issues reported. Constitutional: requiring IVF, requiring O2 Exam/Review of Systems Vital Signs Vitals Vital Signs Date Time Temp Pulse Resp B/P Pulse Ox O2 Delivery O2 Flow Rate FiO2 11/22/16 12:00 61 11/22/16 11:30 98.2 18 123/75 100 11/22/16 11:00 35 11/18/16 19:09 Mechanical Ventilator Intake and Output 11/21/16 11/21/16 11/22/16 15:00 23:00 07:00 Intake Total 980 ml Output Total 600 ml 550 ml Balance -600 ml 430 ml Exam Constitutional: non-verbal Eyes: nl sclera ENMT: nl external ears & nose Respiratory: diminished breath sounds Cardiovascular: nl pulses Gastrointestinal: non-tender, other, soft Musculoskeletal: muscle weakness Neurological: unresponsive Results Result Diagram: 11/22/16 0555 11/22/16 0555 Results 24 hrs Laboratory Tests Test 11/21/16 17:42 11/21/16 20:27 11/22/16 00:55 11/22/16 05:46 Bedside Glucose 99 111 127 150 Test 11/22/16 05:55 11/22/16 07:33 11/22/16 12:17 White Blood Count 9.7 Red Blood Count 3.01 L Hemoglobin 8.9 L Hematocrit 27.4 L Mean Corpuscular Volume 91.0 Mean Corpuscular Hemoglobin 29.6 Mean Corpuscular Hemoglobin Concent 32.5 Red Cell Distribution Width 17.5 H Platelet Count 243 Mean Platelet Volume 9.9 Neutrophils % 83.7 H Lymphocytes % 5.5 L Monocytes % 8.5 Eosinophils % 1.4 Basophils % 0.5 Nucleated Red Blood Cells % 0.0 Neutrophils # 8.1 H Lymphocytes # 0.5 L Monocytes # 0.8 Eosinophils # 0.1 Basophils # 0.1 Nucleated Red Blood Cells # 0.0 Sodium Level 134 L Potassium Level 4.0 Chloride Level 100 Carbon Dioxide Level 30 Anion Gap 8 Blood Urea Nitrogen 21 H Creatinine 0.31 L Glucose Level 134 # Calcium Level 8.3 L Bedside Glucose 137 115 Medications Medications Current Medications Acetaminophen (Tylenol Tab) 650 mg Q6H PRN GTB PAIN AND OR ELEVATED TEMP; Start 11/18/16 at 23:30 Aspirin (Aspirin) 81 mg DAILY GTB Last administered on 11/22/16 08:51; Admin Dose 81 MG; Start 11/19/16 at 09:00 Atorvastatin Calcium (Lipitor) 40 mg QHS GTB Last administered on 11/21/16 20: 38; Admin Dose 40 MG; Start 11/19/16 at 21:00 Benazepril HCl (Lotensin) 10 mg DAILY GTB Last administered on 11/22/16 08:52 ; Admin Dose 10 MG; Start 11/19/16 at 09:00 Docusate Sodium (Colace Liquid Cup) 200 mg DAILY PRN GTB CONSTIPATION; Start at 23:30 Famotidine (Pepcid) 20 mg DAILY GTB Last administered on 11/22/16 08:52; Admin Dose 20 MG; Start 11/19/16 at 09:00 Ferrous Sulfate (Feosol Liquid Cup) 330 mg DAILY GTB Last administered on 08:53; Admin Dose 330 MG; Start 11/19/16 at 09:00 Hydralazine HCl (Apresoline) 25 mg Q6H PRN GTB ELEVATED BLOOD PRESSURE; Start 11/18/16 at 23:30 Metoprolol Tartrate (Lopressor) 25 mg BID GTB Last administered on 11/22/16 08 :53; Admin Dose 25 MG; Start 11/18/16 at 23:30 Mineral Oil (Fleet Mineral Oil Enema) 133 ml DAILY PRN [place] CONSTIPATION; Start 11/18/16 at 23:30 Multivitamins Therapeutic (Theragran) 1 tab DAILY PO Last administered on 08:52; Admin Dose 1 TAB; Start 11/19/16 at 09:00 Ondansetron HCl (Zofran Tab) 4 mg Q4H PRN GTB NAUSEA AND/OR VOMITING; Start at 23:30 Potassium Chloride (KCl Liq (Ped)) 40 meq DAILY GTB Last administered on 08:53; Admin Dose 40 MEQ; Start 11/19/16 at 09:00 Sodium Chloride (Nacl) 1 gm TID GTB Last administered on 11/22/16 08:52; Admin Dose 1 GM; Start 11/19/16 at 09:00 Tamsulosin HCl (Flomax) 0.4 mg HS PO Last administered on 11/21/16 20:39; Admin Dose 0.4 MG; Start 11/19/16 at 21:00 Glucagon (Glucagen) 1 mg DAILY PRN IM LOW GLUCOSE; Start 11/18/16 at 23:30 Miscellaneous Information 1 ea NOTE XX ; Start 11/18/16 at 23:45 Glucose (Glutose) 15 gm Q15M PRN PO DECREASED GLUCOSE; Start 11/18/16 at 23:45 Glucose (Glutose) 22.5 gm Q15M PRN PO DECREASED GLUCOSE; Start 11/18/16 at 23: 45 Dextrose (D50w Syringe) 25 ml Q15M PRN IV DECREASED GLUCOSE Last administered on 11/21/16 06:27; Admin Dose 25 ML; Start 11/18/16 at 23:45 Dextrose (D50w Syringe) 50 ml Q15M PRN IV DECREASED GLUCOSE; Start 11/18/16 at 23:45 Glucagon (Glucagen) 1 mg Q15M PRN IM DECREASED GLUCOSE; Start 11/18/16 at 23:45 Glucose (Glutose) 15 gm Q15M PRN BUCCAL DECREASED GLUCOSE; Start 11/18/16 at 23 :45 Diagnostic Test (Pha) (Accu-Chek) 1 ea Q6 XX Last administered on 11/22/16 12: 32; Admin Dose 1 EA; Start 11/20/16 at 00:00 Insulin Aspart (Novolog Insulin Pen) NOVOLOG *MILD* ALGORITHM Q6 SC Last administered on 11/22/16 05:49; Admin Dose 1 UNIT; Start 11/20/16 at 00:00 Insulin Detemir (Levemir) 10 unit BID SC Last administered on 11/22/16 08:57; Admin Dose 10 UNIT; Start 11/20/16 at 21:00 KENYATTA CAPPS Nov 22, 2016 13:58
--- NOTE | 2016-11-22 15:40 | CONS ---
Date/Time of Note Date/Time of Note DATE: 11/22/16 TIME: 15:39 Assessment/Plan Assessment/Plan Additional Assessment/Plan 1. Severe hyponatremia, acute on chronic hyponatremia secondary to syndrome of inappropriate antidiuretic hormone 2. History of possible chronic hyponatremia secondary to syndrome of inappropriate antidiuretic hormone. The patient has been on demeclocycline 300 mg p.o. b.i.d., maximum dose, unresponsive. . 3. History of hypertension. 4. History of diabetes mellitus. 5. Chronic encephalopathy. 6. 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 7. History of G-tube in place. plan: demeclocycline stopped, on soidum chloride tablet 1 gram PO TID Na improved with tolvaptan, now will monitor Na and use tolvaptan as needed due to mildly elevated LFTs on labs today renal case manager consult to check if Tolvaptan covered for patient at [facility] facility will follow up Consultation Date/Type/Reason Admit Date/Time Initial Consult Date 11/18/16 Type of Consultation: NEPHROLOGY Referring Provider: JENELLE COLBY MD 24 HR Interval Summary Free Text/Dictation Na 134, BP stable, afebrile Exam/Review of Systems Vital Signs Vitals Vital Signs Date Time Temp Pulse Resp B/P Pulse Ox O2 Delivery O2 Flow Rate FiO2 11/22/16 13:16 59 12 100 35 11/22/16 11:30 98.2 123/75 11/18/16 19:09 Mechanical Ventilator Intake and Output 11/21/16 11/21/16 11/22/16 15:00 23:00 07:00 Intake Total 980 ml Output Total 600 ml 550 ml Balance -600 ml 430 ml Results Result Diagram: 11/22/16 0555 11/22/16 0555 Results 24 hrs Laboratory Tests Test 11/21/16 17:42 11/21/16 20:27 11/22/16 00:55 11/22/16 05:46 Bedside Glucose 99 111 127 150 Test 11/22/16 05:55 11/22/16 07:33 11/22/16 12:17 White Blood Count 9.7 Red Blood Count 3.01 L Hemoglobin 8.9 L Hematocrit 27.4 L Mean Corpuscular Volume 91.0 Mean Corpuscular Hemoglobin 29.6 Mean Corpuscular Hemoglobin Concent 32.5 Red Cell Distribution Width 17.5 H Platelet Count 243 Mean Platelet Volume 9.9 Neutrophils % 83.7 H Lymphocytes % 5.5 L Monocytes % 8.5 Eosinophils % 1.4 Basophils % 0.5 Nucleated Red Blood Cells % 0.0 Neutrophils # 8.1 H Lymphocytes # 0.5 L Monocytes # 0.8 Eosinophils # 0.1 Basophils # 0.1 Nucleated Red Blood Cells # 0.0 Sodium Level 134 L Potassium Level 4.0 Chloride Level 100 Carbon Dioxide Level 30 Anion Gap 8 Blood Urea Nitrogen 21 H Creatinine 0.31 L Glucose Level 134 # Calcium Level 8.3 L Bedside Glucose 137 115 Medications Medications Current Medications Acetaminophen (Tylenol Tab) 650 mg Q6H PRN GTB PAIN AND OR ELEVATED TEMP; Start 11/18/16 at 23:30 Aspirin (Aspirin) 81 mg DAILY GTB Last administered on 11/22/16 08:51; Admin Dose 81 MG; Start 11/19/16 at 09:00 Atorvastatin Calcium (Lipitor) 40 mg QHS GTB Last administered on 11/21/16 20: 38; Admin Dose 40 MG; Start 11/19/16 at 21:00 Benazepril HCl (Lotensin) 10 mg DAILY GTB Last administered on 11/22/16 08:52 ; Admin Dose 10 MG; Start 11/19/16 at 09:00 Docusate Sodium (Colace Liquid Cup) 200 mg DAILY PRN GTB CONSTIPATION; Start at 23:30 Famotidine (Pepcid) 20 mg DAILY GTB Last administered on 11/22/16 08:52; Admin Dose 20 MG; Start 11/19/16 at 09:00 Ferrous Sulfate (Feosol Liquid Cup) 330 mg DAILY GTB Last administered on 08:53; Admin Dose 330 MG; Start 11/19/16 at 09:00 Hydralazine HCl (Apresoline) 25 mg Q6H PRN GTB ELEVATED BLOOD PRESSURE; Start 11/18/16 at 23:30 Metoprolol Tartrate (Lopressor) 25 mg BID GTB Last administered on 11/22/16 08 :53; Admin Dose 25 MG; Start 11/18/16 at 23:30 Mineral Oil (Fleet Mineral Oil Enema) 133 ml DAILY PRN [place] CONSTIPATION; Start 11/18/16 at 23:30 Multivitamins Therapeutic (Theragran) 1 tab DAILY PO Last administered on 08:52; Admin Dose 1 TAB; Start 11/19/16 at 09:00 Ondansetron HCl (Zofran Tab) 4 mg Q4H PRN GTB NAUSEA AND/OR VOMITING; Start at 23:30 Potassium Chloride (KCl Liq (Ped)) 40 meq DAILY GTB Last administered on 08:53; Admin Dose 40 MEQ; Start 11/19/16 at 09:00 Sodium Chloride (Nacl) 1 gm TID GTB Last administered on 11/22/16 15:18; Admin Dose 1 GM; Start 11/19/16 at 09:00 Tamsulosin HCl (Flomax) 0.4 mg HS PO Last administered on 11/21/16 20:39; Admin Dose 0.4 MG; Start 11/19/16 at 21:00 Glucagon (Glucagen) 1 mg DAILY PRN IM LOW GLUCOSE; Start 11/18/16 at 23:30 Miscellaneous Information 1 ea NOTE XX ; Start 11/18/16 at 23:45 Glucose (Glutose) 15 gm Q15M PRN PO DECREASED GLUCOSE; Start 11/18/16 at 23:45 Glucose (Glutose) 22.5 gm Q15M PRN PO DECREASED GLUCOSE; Start 11/18/16 at 23: 45 Dextrose (D50w Syringe) 25 ml Q15M PRN IV DECREASED GLUCOSE Last administered on 11/21/16 06:27; Admin Dose 25 ML; Start 11/18/16 at 23:45 Dextrose (D50w Syringe) 50 ml Q15M PRN IV DECREASED GLUCOSE; Start 11/18/16 at 23:45 Glucagon (Glucagen) 1 mg Q15M PRN IM DECREASED GLUCOSE; Start 11/18/16 at 23:45 Glucose (Glutose) 15 gm Q15M PRN BUCCAL DECREASED GLUCOSE; Start 11/18/16 at 23 :45 Diagnostic Test (Pha) (Accu-Chek) 1 ea Q6 XX Last administered on 11/22/16 12: 32; Admin Dose 1 EA; Start 11/20/16 at 00:00 Insulin Aspart (Novolog Insulin Pen) NOVOLOG *MILD* ALGORITHM Q6 SC Last administered on 11/22/16 05:49; Admin Dose 1 UNIT; Start 11/20/16 at 00:00 Insulin Detemir (Levemir) 10 unit BID SC Last administered on 11/22/16 08:57; Admin Dose 10 UNIT; Start 11/20/16 at 21:00 LISSA PARK MD Nov 22, 2016 15:40
[2016-11-22] MEDS: TAMSULOSIN (SR) 0.4 MG CAP PO SCH (21:13)
[2016-11-22] MEDS: ATORVASTATIN 40 MG TAB GTB SCH (21:13)
[2016-11-23] VITALS (23 sets, daily range): BP systolic 114–142; BP diastolic 59–71; PULSE 56–63; RESP 12–22
[2016-11-23] MEDS: DEXTROSE 50% 50 ML SYRINGE IV PRN (00:27)
[2016-11-23] MEDS: ACCU-CHEK XX SCH ×4 (06:00→18:11)
[2016-11-23] MEDS: INSULIN ASPART [NOVOLOG] 3 ML PEN SC SCH ×4 (06:00→18:00)
[2016-11-23 07:19] LABS: ADD SCAN DIFF NO
[2016-11-23 07:25] LABS: ABNORMAL IP MESSAGE 1; BASOPHIL # 0.1 10^3/ul (0.0-0.1); BASOPHILS % 0.8 % (0.0-2.0); EOSINOPHILS # 0.2 10^3/ul (0.0-0.5); EOSINOPHILS % 2.3 % (0.0-7.0); HEMATOCRIT 28.7 % (42.0-52.0); HEMOGLOBIN 9.2 g/dl (14.0-18.0); LYMPHOCYTES # 0.6 10^3/ul (0.8-2.9); LYMPHOCYTES % 6.6 % (15.0-51.0); MEAN CORPUSCULAR HEMOGLOBIN 29.2 pg (29.0-33.0); MEAN CORPUSCULAR HGB CONC 32.1 g/dl (32.0-37.0); MEAN CORPUSCULAR VOLUME 91.1 fl (82.0-101.0); MEAN PLATELET VOLUME 9.5 fl (7.4-10.4); MONOCYTE # 0.8 10^3/ul (0.3-0.9); MONOCYTES % 8.7 % (0.0-11.0); NEUTROPHIL # 7.1 10^3/ul (1.6-7.5); NEUTROPHILS % 81.3 % (39.0-77.0); PLATELET COUNT 265 10^3/UL (140-415); RED BLOOD COUNT 3.15 10^6/ul (4.70-6.10); RED CELL DISTRIBUTION WIDTH 17.4 % (11.5-14.5); WHITE BLOOD COUNT 8.7 10^3/ul (4.8-10.8)
[2016-11-23 07:41] LABS: POTASSIUM 3.9 mmol/L (3.5-5.1)
[2016-11-23 07:44] LABS: CREATININE 0.29 mg/dl (0.61-1.24)
[2016-11-23] MEDS: ASPIRIN 81 MG TAB GTB SCH (08:05)
[2016-11-23] MEDS: BENAZEPRIL 10 MG TAB GTB SCH (08:05)
[2016-11-23] MEDS: SODIUM CHLORIDE 1 GM TAB GTB SCH ×3 (08:05→20:14)
[2016-11-23] MEDS: MULTIVITAMINS THERAPEUTIC TAB PO SCH (08:06)
[2016-11-23] MEDS: METOPROLOL 25 MG TAB GTB SCH ×2 (08:06→20:16)
[2016-11-23] MEDS: FERROUS SULFATE 60 MG/ML 5ML CUP GTB SCH (08:06)
[2016-11-23] MEDS: FAMOTIDINE 20 MG TAB GTB SCH (08:06)
[2016-11-23] MEDS: INSULIN DETEMIR [LEVEMIR] 3ML CART SC SCH ×2 (08:27→20:13)
--- NOTE | 2016-11-23 10:18 | CONS ---
Date/Time of Note Date/Time of Note DATE: 11/23/16 TIME: 10:15 Assessment/Plan Assessment/Plan Additional Assessment/Plan 1. Severe hyponatremia, acute on chronic hyponatremia secondary to syndrome of inappropriate antidiuretic hormone with some prerenal azotemia. 2. History of possible chronic hyponatremia secondary to syndrome of inappropriate antidiuretic hormone. The patient has been on demeclocycline 300 mg p.o. b.i.d., maximum dose, unresponsive. Tolvaptan was not covered in the care home facility. 3. History of hypertension. 4. History of diabetes mellitus. 5. Chronic encephalopathy. 6. 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 7. History of G-tube in place. plan: demeclocycline stopped, on soidum chloride tablet 1 gram PO TID , Tolvaptan will not be covered in SNF as per police manager, Na slightly dropped to 132 Na improved with tolvaptan, now will monitor Na and use tolvaptan as needed due to mildly elevated LFTs on labs today will follow up Consultation Date/Type/Reason Admit Date/Time Initial Consult Date 11/18/16 Type of Consultation: NEPHROLOGY Referring Provider: JENELLE COLBY MD 24 HR Interval Summary Free Text/Dictation no acute events, Na 132, Tolvaptan will not be covered in SNF, Exam/Review of Systems Vital Signs Vitals Vital Signs Date Time Temp Pulse Resp B/P Pulse Ox O2 Delivery O2 Flow Rate FiO2 11/23/16 08:34 61 11/23/16 07:45 98.2 19 128/68 100 11/23/16 05:47 30 Intake and Output 11/22/16 11/22/16 11/23/16 15:00 23:00 07:00 Intake Total 300 ml 720 ml Output Total 450 ml Balance -150 ml 720 ml Exam GENERAL: no acute distress, non verbal, non communicative HEENT: Pupils equal and reactive to light. NECK: Status post tracheostomy, on ventilator. Neck is supple. Site is clear. No erythema, no discharge. LUNGS: Bilateral coarse breath sounds heard. No wheezing. HEART: S1, S2, tachycardia, no murmur. ABDOMEN: Soft. G-tube site is clear. No leaking, no discharge. Erythema around the G-tube. EXTREMITIES: 1+ pitting edema in the right ankle. SKIN: The patient has some pressure ulcers on admissions including the right heel and buttocks. NEUROLOGICAL: Uncooperative for examination secondary to chronic encephalopathy. Results Result Diagram: 11/23/16 0640 11/23/16 0640 Results 24 hrs Laboratory Tests Test 11/22/16 12:17 11/22/16 17:55 11/22/16 20:12 11/23/16 00:47 Bedside Glucose 115 95 72 122 Test 11/23/16 05:36 11/23/16 06:40 11/23/16 07:31 Bedside Glucose 94 110 White Blood Count 8.7 Red Blood Count 3.15 L Hemoglobin 9.2 L Hematocrit 28.7 L Mean Corpuscular Volume 91.1 Mean Corpuscular Hemoglobin 29.2 Mean Corpuscular Hemoglobin Concent 32.1 Red Cell Distribution Width 17.4 H Platelet Count 265 Mean Platelet Volume 9.5 Neutrophils % 81.3 H Lymphocytes % 6.6 L Monocytes % 8.7 Eosinophils % 2.3 Basophils % 0.8 Nucleated Red Blood Cells % 0.0 Neutrophils # 7.1 Lymphocytes # 0.6 L Monocytes # 0.8 Eosinophils # 0.2 Basophils # 0.1 Nucleated Red Blood Cells # 0.0 Sodium Level 132 L Potassium Level 3.9 Chloride Level 101 Carbon Dioxide Level 27 Anion Gap 8 Blood Urea Nitrogen 19 Creatinine 0.29 L Glucose Level 89 # Calcium Level 8.0 L Medications Medications Current Medications Acetaminophen (Tylenol Tab) 650 mg Q6H PRN GTB PAIN AND OR ELEVATED TEMP; Start 11/18/16 at 23:30 Aspirin (Aspirin) 81 mg DAILY GTB Last administered on 11/23/16 08:05; Admin Dose 81 MG; Start 11/19/16 at 09:00 Atorvastatin Calcium (Lipitor) 40 mg QHS GTB Last administered on 11/22/16 21: 13; Admin Dose 40 MG; Start 11/19/16 at 21:00 Benazepril HCl (Lotensin) 10 mg DAILY GTB Last administered on 11/23/16 08:05 ; Admin Dose 10 MG; Start 11/19/16 at 09:00 Docusate Sodium (Colace Liquid Cup) 200 mg DAILY PRN GTB CONSTIPATION; Start at 23:30 Famotidine (Pepcid) 20 mg DAILY GTB Last administered on 11/23/16 08:06; Admin Dose 20 MG; Start 11/19/16 at 09:00 Ferrous Sulfate (Feosol Liquid Cup) 330 mg DAILY GTB Last administered on 08:06; Admin Dose 330 MG; Start 11/19/16 at 09:00 Hydralazine HCl (Apresoline) 25 mg Q6H PRN GTB ELEVATED BLOOD PRESSURE; Start 11/18/16 at 23:30 Metoprolol Tartrate (Lopressor) 25 mg BID GTB Last administered on 11/23/16 08 :06; Admin Dose 25 MG; Start 11/18/16 at 23:30 Mineral Oil (Fleet Mineral Oil Enema) 133 ml DAILY PRN [place] CONSTIPATION; Start 11/18/16 at 23:30 Multivitamins Therapeutic (Theragran) 1 tab DAILY PO Last administered on 08:06; Admin Dose 1 TAB; Start 11/19/16 at 09:00 Ondansetron HCl (Zofran Tab) 4 mg Q4H PRN GTB NAUSEA AND/OR VOMITING; Start at 23:30 Sodium Chloride (Nacl) 1 gm TID GTB Last administered on 11/23/16 08:05; Admin Dose 1 GM; Start 11/19/16 at 09:00 Tamsulosin HCl (Flomax) 0.4 mg HS PO Last administered on 11/22/16 21:13; Admin Dose 0.4 MG; Start 11/19/16 at 21:00 Glucagon (Glucagen) 1 mg DAILY PRN IM LOW GLUCOSE; Start 11/18/16 at 23:30 Miscellaneous Information 1 ea NOTE XX ; Start 11/18/16 at 23:45 Glucose (Glutose) 15 gm Q15M PRN PO DECREASED GLUCOSE; Start 11/18/16 at 23:45 Glucose (Glutose) 22.5 gm Q15M PRN PO DECREASED GLUCOSE; Start 11/18/16 at 23: 45 Dextrose (D50w Syringe) 25 ml Q15M PRN IV DECREASED GLUCOSE Last administered on 11/23/16 00:27; Admin Dose 25 ML; Start 11/18/16 at 23:45 Dextrose (D50w Syringe) 50 ml Q15M PRN IV DECREASED GLUCOSE; Start 11/18/16 at 23:45 Glucagon (Glucagen) 1 mg Q15M PRN IM DECREASED GLUCOSE; Start 11/18/16 at 23:45 Glucose (Glutose) 15 gm Q15M PRN BUCCAL DECREASED GLUCOSE; Start 11/18/16 at 23 :45 Diagnostic Test (Pha) (Accu-Chek) 1 ea Q6 XX Last administered on 11/22/16 17: 57; Admin Dose 1 EA; Start 11/20/16 at 00:00 Insulin Aspart (Novolog Insulin Pen) NOVOLOG *MILD* ALGORITHM Q6 SC Last administered on 11/22/16 05:49; Admin Dose 1 UNIT; Start 11/20/16 at 00:00 Insulin Detemir (Levemir) 10 unit BID SC Last administered on 11/23/16 08:27; Admin Dose 10 UNIT; Start 11/20/16 at 21:00 Potassium Chloride (Potassium Chloride Pwd/Soln) 40 meq DAILY GTB ; Start at 09:00 LISSA PARK MD Nov 23, 2016 10:18
[2016-11-23] MEDS: POTASSIUM CHLORIDE 20 MEQ POWDER FOR ORAL SOLN GTB SCH (11:25)
--- NOTE | 2016-11-23 16:53 | CONS ---
Date/Time of Note Date/Time of Note DATE: 11/23/16 TIME: 16:51 Consult Date/Type/Reason Admit Date/Time Nov 20, 2016 at 15:20 Initial Consult Date 11/19/16 Type of Consultation: pulmonary Ordering Provider: JENELLE COLBY MD Subjective Patient remains stable somnolent on mechanical ventilation Objective Vital Signs Date Time Temp Pulse Resp B/P Pulse Ox O2 Delivery O2 Flow Rate FiO2 11/23/16 16:41 59 11/23/16 15:59 97.6 22 136/66 100 11/23/16 15:21 30 Intake and Output 11/22/16 11/22/16 11/23/16 15:00 23:00 07:00 Intake Total 300 ml 720 ml Output Total 450 ml Balance -150 ml 720 ml Exam PHYSICAL EXAMINATION GENERAL: Chronically ill-appearing gentleman on mechanical ventilation VITAL SIGNS: see below. HEENT: Pupils equal, round, and reactive to light. Tracheostomy site clean and intact. CARDIAC: S1, S2, no added sounds or murmurs CHEST: Diminished air entry bilaterally. ABDOMEN: Mildly distended. Bowel sounds present no guarding or rebound EXTREMITIES: No cyanosis, clubbing edema +1 NEUROLOGIC: Generalized weakness Results/Medications Result Diagram: 11/23/16 0640 11/23/16 0640 Results 24 hrs Laboratory Tests Test 11/22/16 17:55 11/22/16 20:12 11/23/16 00:21 11/23/16 00:47 Bedside Glucose 95 72 68 L 122 Test 11/23/16 05:36 11/23/16 06:40 11/23/16 07:31 11/23/16 11:27 Bedside Glucose 94 110 100 White Blood Count 8.7 Red Blood Count 3.15 L Hemoglobin 9.2 L Hematocrit 28.7 L Mean Corpuscular Volume 91.1 Mean Corpuscular Hemoglobin 29.2 Mean Corpuscular Hemoglobin Concent 32.1 Red Cell Distribution Width 17.4 H Platelet Count 265 Mean Platelet Volume 9.5 Neutrophils % 81.3 H Lymphocytes % 6.6 L Monocytes % 8.7 Eosinophils % 2.3 Basophils % 0.8 Nucleated Red Blood Cells % 0.0 Neutrophils # 7.1 Lymphocytes # 0.6 L Monocytes # 0.8 Eosinophils # 0.2 Basophils # 0.1 Nucleated Red Blood Cells # 0.0 Sodium Level 132 L Potassium Level 3.9 Chloride Level 101 Carbon Dioxide Level 27 Anion Gap 8 Blood Urea Nitrogen 19 Creatinine 0.29 L Glucose Level 89 # Calcium Level 8.0 L Medications Current Medications Acetaminophen (Tylenol Tab) 650 mg Q6H PRN GTB PAIN AND OR ELEVATED TEMP; Start 11/18/16 at 23:30 Aspirin (Aspirin) 81 mg DAILY GTB Last administered on 11/23/16 08:05; Admin Dose 81 MG; Start 11/19/16 at 09:00 Atorvastatin Calcium (Lipitor) 40 mg QHS GTB Last administered on 11/22/16 21: 13; Admin Dose 40 MG; Start 11/19/16 at 21:00 Benazepril HCl (Lotensin) 10 mg DAILY GTB Last administered on 11/23/16 08:05 ; Admin Dose 10 MG; Start 11/19/16 at 09:00 Docusate Sodium (Colace Liquid Cup) 200 mg DAILY PRN GTB CONSTIPATION; Start at 23:30 Famotidine (Pepcid) 20 mg DAILY GTB Last administered on 11/23/16 08:06; Admin Dose 20 MG; Start 11/19/16 at 09:00 Ferrous Sulfate (Feosol Liquid Cup) 330 mg DAILY GTB Last administered on 08:06; Admin Dose 330 MG; Start 11/19/16 at 09:00 Hydralazine HCl (Apresoline) 25 mg Q6H PRN GTB ELEVATED BLOOD PRESSURE; Start 11/18/16 at 23:30 Metoprolol Tartrate (Lopressor) 25 mg BID GTB Last administered on 11/23/16 08 :06; Admin Dose 25 MG; Start 11/18/16 at 23:30 Mineral Oil (Fleet Mineral Oil Enema) 133 ml DAILY PRN [place] CONSTIPATION; Start 11/18/16 at 23:30 Multivitamins Therapeutic (Theragran) 1 tab DAILY PO Last administered on 08:06; Admin Dose 1 TAB; Start 11/19/16 at 09:00 Ondansetron HCl (Zofran Tab) 4 mg Q4H PRN GTB NAUSEA AND/OR VOMITING; Start at 23:30 Sodium Chloride (Nacl) 1 gm TID GTB Last administered on 11/23/16 11:25; Admin Dose 1 GM; Start 11/19/16 at 09:00 Tamsulosin HCl (Flomax) 0.4 mg HS PO Last administered on 11/22/16 21:13; Admin Dose 0.4 MG; Start 11/19/16 at 21:00 Glucagon (Glucagen) 1 mg DAILY PRN IM LOW GLUCOSE; Start 11/18/16 at 23:30 Miscellaneous Information 1 ea NOTE XX ; Start 11/18/16 at 23:45 Glucose (Glutose) 15 gm Q15M PRN PO DECREASED GLUCOSE; Start 11/18/16 at 23:45 Glucose (Glutose) 22.5 gm Q15M PRN PO DECREASED GLUCOSE; Start 11/18/16 at 23: 45 Dextrose (D50w Syringe) 25 ml Q15M PRN IV DECREASED GLUCOSE Last administered on 11/23/16 00:27; Admin Dose 25 ML; Start 11/18/16 at 23:45 Dextrose (D50w Syringe) 50 ml Q15M PRN IV DECREASED GLUCOSE; Start 11/18/16 at 23:45 Glucagon (Glucagen) 1 mg Q15M PRN IM DECREASED GLUCOSE; Start 11/18/16 at 23:45 Glucose (Glutose) 15 gm Q15M PRN BUCCAL DECREASED GLUCOSE; Start 11/18/16 at 23 :45 Diagnostic Test (Pha) (Accu-Chek) 1 ea Q6 XX Last administered on 11/23/16 11: 25; Admin Dose 1 EA; Start 11/20/16 at 00:00 Insulin Aspart (Novolog Insulin Pen) NOVOLOG *MILD* ALGORITHM Q6 SC Last administered on 11/22/16 05:49; Admin Dose 1 UNIT; Start 11/20/16 at 00:00 Insulin Detemir (Levemir) 10 unit BID SC Last administered on 11/23/16 08:27; Admin Dose 10 UNIT; Start 11/20/16 at 21:00 Potassium Chloride (Potassium Chloride Pwd/Soln) 40 meq DAILY GTB Last administered on 11/23/16 11:25; Admin Dose 40 MEQ; Start 11/23/16 at 09:00 Assessment/Plan Chief Complaint/Hosp Course Assessment 1. Vent dependent respiratory failure 2. 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 Dysphagia with G-tube 4. Anemia of chronic disease Plan 1. Agree with palliative care consult 2. Continue mechanical ventilation 3. Continue DVT and GI prophylaxis 4. Tube feeding as tolerated Disposition Consider transfer back to subacute. Problems: JOSE MONTES DE OCA MD, [facility] Nov 23, 2016 16:53
--- NOTE | 2016-11-23 17:07 | PN ---
Date/Time of Note Date/Time of Note DATE: 11/23/16 TIME: 17:04 Assessment/Plan VTE Prophylaxis VTE Prophylaxis Intervention: SCD's Lines/Catheters IV C[facility]ter Type (from [facility]): [place] [employer] line still needed: Yes Urinary Cath still in place: Yes Reason Cath still needed: urinary retention Assessment/Plan Chief Complaint/Hosp Course ASSESSMENT AND PLAN: 1. Acute on chronic hyponatremia secondary to syndrome of inappropriate antidiuretic hormone. Dr. Tovar is following in nephrology consultation. Patient is currently on sodium tablets supplement, continue to monitor sodium. 2. Ventilator-dependent respiratory failure. Continue ventilatory support. Dr. Clarke is following the patient in pulmonology consultation. Continue bronchodilators. 3. Brainstem glioma, status post ventriculoperitoneal shunt placement. Dr. Anand is asked to see patient in palliative care consult. 4. Status post cerebrovascular accident. 5. Chronic encephalopathy. 6. Seizure disorder. Continue Keppra. 7. Dysphagia with G-tube. 8. Transaminitis. Dr. Mas to follow up the patient in gastroenterology consultation. 9. Diabetes mellitus type 2. Continue NovoLog and Lantus. 10. Hypertension. Continue benazepril 11. Hyperlipidemia, continue Lipitor. 12. Bedridden status with functional quadriplegia. Continue to assist patient with activities of daily living. 13. Multiple pressure sores present on admission. Continue current wound care. 14. DNR status. Continue sequential compression device for deep venous thrombosis prophylaxis. Prevacid for peptic ulcer disease prophylaxis. Further recommendations based on clinical course. Plan of care discussed with Dr. Desir. Problems: Subjective 24 Hr Interval Summary Free Text/Dictation Patient remains afebrile, no acute events overnight. [facility] social worker met with family, family request patient is DNR. Exam/Review of Systems Vital Signs Vitals Vital Signs Date Time Temp Pulse Resp B/P Pulse Ox O2 Delivery O2 Flow Rate FiO2 11/23/16 16:41 59 11/23/16 15:59 97.6 22 136/66 100 11/23/16 15:21 30 Intake and Output 11/22/16 11/22/16 11/23/16 15:00 23:00 07:00 Intake Total 300 ml 720 ml Output Total 450 ml Balance -150 ml 720 ml Exam PHYSICAL ASSESSMENT GENERAL: A well-developed, obtunded gentleman on ventilator support via tracheostomy. HEENT: Head is atraumatic, normocephalic. PERRLA. NECK: Supple. There is a tracheostomy at the base of the neck. LUNGS: Scattered rhonchi bilaterally. There is no wheezing noted. Slightly diminished at the bases. CARDIOVASCULAR: Normal S1, S2. The patient is slightly tachycardic. No murmurs, gallops, clicks, rubs noted. ABDOMEN: Round, soft, nondistended, nontender. Patient has a G-tube. EXTREMITIES: Mild edema. There is no clubbing or cyanosis. SKIN: Patient has multiple pressure ulcers present on admission including a right heel and buttocks. NEUROLOGIC: Patient is obtunded, does not follow any commands, did not move any extremities. Results Result Diagram: 11/23/16 0640 11/23/16 0640 Results 24 hrs Laboratory Tests Test 11/22/16 17:55 11/22/16 20:12 11/23/16 00:21 11/23/16 00:47 Bedside Glucose 95 72 68 L 122 Test 11/23/16 05:36 11/23/16 06:40 11/23/16 07:31 11/23/16 11:27 Bedside Glucose 94 110 100 White Blood Count 8.7 Red Blood Count 3.15 L Hemoglobin 9.2 L Hematocrit 28.7 L Mean Corpuscular Volume 91.1 Mean Corpuscular Hemoglobin 29.2 Mean Corpuscular Hemoglobin Concent 32.1 Red Cell Distribution Width 17.4 H Platelet Count 265 Mean Platelet Volume 9.5 Neutrophils % 81.3 H Lymphocytes % 6.6 L Monocytes % 8.7 Eosinophils % 2.3 Basophils % 0.8 Nucleated Red Blood Cells % 0.0 Neutrophils # 7.1 Lymphocytes # 0.6 L Monocytes # 0.8 Eosinophils # 0.2 Basophils # 0.1 Nucleated Red Blood Cells # 0.0 Sodium Level 132 L Potassium Level 3.9 Chloride Level 101 Carbon Dioxide Level 27 Anion Gap 8 Blood Urea Nitrogen 19 Creatinine 0.29 L Glucose Level 89 # Calcium Level 8.0 L Medications Medications Current Medications Acetaminophen (Tylenol Tab) 650 mg Q6H PRN GTB PAIN AND OR ELEVATED TEMP; Start 11/18/16 at 23:30 Aspirin (Aspirin) 81 mg DAILY GTB Last administered on 11/23/16t 08:05; Admin Dose 81 MG; Start 11/19/16 at 09:00 Atorvastatin Calcium (Lipitor) 40 mg QHS GTB Last administered on 11/22/16 21: 13; Admin Dose 40 MG; Start 11/19/16 at 21:00 Benazepril HCl (Lotensin) 10 mg DAILY GTB Last administered on 11/23/16 08:05 ; Admin Dose 10 MG; Start 11/19/16 at 09:00 Docusate Sodium (Colace Liquid Cup) 200 mg DAILY PRN GTB CONSTIPATION; Start at 23:30 Famotidine (Pepcid) 20 mg DAILY GTB Last administered on 11/23/16 08:06; Admin Dose 20 MG; Start 11/19/16 at 09:00 Ferrous Sulfate (Feosol Liquid Cup) 330 mg DAILY GTB Last administered on 08:06; Admin Dose 330 MG; Start 11/19/16 at 09:00 Hydralazine HCl (Apresoline) 25 mg Q6H PRN GTB ELEVATED BLOOD PRESSURE; Start 11/18/16 at 23:30 Metoprolol Tartrate (Lopressor) 25 mg BID GTB Last administered on 11/23/16 08 :06; Admin Dose 25 MG; Start 11/18/16 at 23:30 Mineral Oil (Fleet Mineral Oil Enema) 133 ml DAILY PRN [place] CONSTIPATION; Start 11/18/16 at 23:30 Multivitamins Therapeutic (Theragran) 1 tab DAILY PO Last administered on 08:06; Admin Dose 1 TAB; Start 11/19/16 at 09:00 Ondansetron HCl (Zofran Tab) 4 mg Q4H PRN GTB NAUSEA AND/OR VOMITING; Start at 23:30 Sodium Chloride (Nacl) 1 gm TID GTB Last administered on 11/23/16 11:25; Admin Dose 1 GM; Start 11/19/16 at 09:00 Tamsulosin HCl (Flomax) 0.4 mg HS PO Last administered on 11/22/16 21:13; Admin Dose 0.4 MG; Start 11/19/16 at 21:00 Glucagon (Glucagen) 1 mg DAILY PRN IM LOW GLUCOSE; Start 11/18/16 at 23:30 Miscellaneous Information 1 ea NOTE XX ; Start 11/18/16 at 23:45 Glucose (Glutose) 15 gm Q15M PRN PO DECREASED GLUCOSE; Start 11/18/16 at 23:45 Glucose (Glutose) 22.5 gm Q15M PRN PO DECREASED GLUCOSE; Start 11/18/16 at 23: 45 Dextrose (D50w Syringe) 25 ml Q15M PRN IV DECREASED GLUCOSE Last administered on 11/23/16 00:27; Admin Dose 25 ML; Start 11/18/16 at 23:45 Dextrose (D50w Syringe) 50 ml Q15M PRN IV DECREASED GLUCOSE; Start 11/18/16 at 23:45 Glucagon (Glucagen) 1 mg Q15M PRN IM DECREASED GLUCOSE; Start 11/18/16 at 23:45 Glucose (Glutose) 15 gm Q15M PRN BUCCAL DECREASED GLUCOSE; Start 11/18/16 at 23 :45 Diagnostic Test (Pha) (Accu-Chek) 1 ea Q6 XX Last administered on 11/23/16 11: 25; Admin Dose 1 EA; Start 11/20/16 at 00:00 Insulin Aspart (Novolog Insulin Pen) NOVOLOG *MILD* ALGORITHM Q6 SC Last administered on 11/22/16 05:49; Admin Dose 1 UNIT; Start 11/20/16 at 00:00 Insulin Detemir (Levemir) 10 unit BID SC Last administered on 11/23/16 08:27; Admin Dose 10 UNIT; Start 11/20/16 at 21:00 Potassium Chloride (Potassium Chloride Pwd/Soln) 40 meq DAILY GTB Last administered on 11/23/16 11:25; Admin Dose 40 MEQ; Start 11/23/16 at 09:00 ALTHEA ACOSTA Nov 23, 2016 17:07
[2016-11-23] MEDS: TAMSULOSIN (SR) 0.4 MG CAP PO SCH (20:14)
[2016-11-23] MEDS: ATORVASTATIN 40 MG TAB GTB SCH (20:14)
[2016-11-24] VITALS (22 sets, daily range): BP systolic 134–150; BP diastolic 56–80; PULSE 56–64; RESP 12–21
[2016-11-24] MEDS: ACCU-CHEK XX SCH ×4 (00:53→18:03)
--- NOTE | 2016-11-24 02:05 | CONS ---
DATE OF ADMISSION: 11/20/2016 DATE OF CONSULTATION: 11/23/2016 HISTORY OF PRESENT ILLNESS: This is a 51-year-old gentleman I have known from prior hospitalization when he was admitted for sepsis syndrome approximately 1 month ago. He was readmitted to [facility] at this time with hyponatremia secondary to SIADH. He is being seen by Dr. Rehana rangel from nephrology standpoint. 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 He has been encephalopathic since I have seen him last. He has un derlying history of seizures, presumably secondary to glioblastoma and multiple other comorbid medic al problems including type 2 diabetes, hyperlipidemia, hypertension. The patient is unable to do an y activities of daily living. I had seen and examined this gentleman during prior hospitalization a nd at that time, 10/12/2016, I consulted, and I had a family conference on 10/14/2016. At that time reviewed medical records with patient's , who is the primary decision maker, who gave me a past medical history. The patient was diagnosed and had been followed at [facility]. He had some typ e of an event within the last 6 months. That is when he required intubation, trach, PEG placed. At that time we opened up a line of communication with the , who made it very clear she was the pr imary decision maker, but does convey the information to other first degree family members. The pat ient was then a DO NOT RESUSCITATE; that has been transferred over towards this hospitalization by Catie Eastman today, 11/23/2016; however, he has had multiple re-hospitalizations since 07/2016, 6 prior hospitalizations for respiratory failure, altered level of consciousness, respiratory failu re, sepsis syndrome and this admission for fluid and electrolyte abnormalities. Therefore, the ques tion arises whether or not family would like to discuss hospice care. MEDICATIONS: Please refer to reconciliation sheets. ALLERGIES: NO KNOWN DRUG ALLERGIES. MAJOR MEDICAL PROBLEMS IN THE PAST: As per history of present illness. SOCIAL HISTORY: Lives in a subacute unit. We have an incomplete database, do not know about his so cial history, family history, and cannot obtain a review of systems. PHYSICAL EXAMINATION: GENERAL: Shows a trached male who is nonresponsive to any verbal or tactile stimulation. CHEST: Shows clear inspiratory and expiratory breath sounds throughout both lung soares. COR: S1, S2, without S3, S4, murmur, gallop, rub. Normal rate, normal rhythm. ABDOMEN: Grossly benign. NEUROLOGIC: He has bilateral sluggish left pupillary light reflex, right difficult to evaluate. He has bilateral disconjugate gaze: he has no doll's eyes on examination. There is no spontaneous m ovement. LABORATORIES: Laboratory tests and imaging studies have been reviewed. I will contact the patient' s in the morning and schedule a family conference. Unfortunately, the prognosis is that this g entleman will have recurrent rehospitalizations for complications related to his underlying major me dical problem, glioblastoma and will probably require rehospitalizations on many occasions for eithe r fluid and electrolyte abnormalities, dehydration, infectious process, etc. I will speak to family members. My last conversation with them was pleasant. Hopefully, that will carry through to the ne xt conversation. Dictated By: MARY VILLALPANDO MD, LP/PIPER Conf#: [id number] DID#: [id number]
[2016-11-24] MEDS: INSULIN ASPART [NOVOLOG] 3 ML PEN SC SCH ×4 (06:00→18:00)
[2016-11-24] MEDS: FERROUS SULFATE 60 MG/ML 5ML CUP GTB SCH (10:06)
[2016-11-24] MEDS: SODIUM CHLORIDE 1 GM TAB GTB SCH ×3 (10:07→21:36)
[2016-11-24] MEDS: POTASSIUM CHLORIDE 20 MEQ POWDER FOR ORAL SOLN GTB SCH (10:07)
[2016-11-24] MEDS: MULTIVITAMINS THERAPEUTIC TAB PO SCH (10:08)
[2016-11-24] MEDS: METOPROLOL 25 MG TAB GTB SCH ×2 (10:08→21:39)
[2016-11-24] MEDS: FAMOTIDINE 20 MG TAB GTB SCH (10:08)
[2016-11-24] MEDS: BENAZEPRIL 10 MG TAB GTB SCH (10:09)
[2016-11-24] MEDS: INSULIN DETEMIR [LEVEMIR] 3ML CART SC SCH ×2 (10:11→21:49)
[2016-11-24] MEDS: ASPIRIN 81 MG TAB GTB SCH (10:13)
--- NOTE | 2016-11-24 10:16 | CONS ---
Date/Time of Note Date/Time of Note DATE: 11/24/16 TIME: 10:14 Assessment/Plan Assessment/Plan Additional Assessment/Plan 1. Severe hyponatremia, acute on chronic hyponatremia secondary to syndrome of inappropriate antidiuretic hormone with some prerenal azotemia. 2. History of possible chronic hyponatremia secondary to syndrome of inappropriate antidiuretic hormone. The patient has been on demeclocycline 300 mg p.o. b.i.d., maximum dose, unresponsive. Tolvaptan was not covered in the residential facility. 3. History of hypertension. 4. History of diabetes mellitus. 5. Chronic encephalopathy. 6. 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 7. History of G-tube in place. plan: demeclocycline stopped, on soidum chloride tablet 1 gram PO TID , Tolvaptan will not be covered in SNF as per resort manager, Na slightly dropped to 132 yesterday, no labs today to review, will order BMP stat today to follow up on Na Na improved with tolvaptan, now will monitor Na and use tolvaptan as needed due to mildly elevated LFTs on labs today will follow up Consultation Date/Type/Reason Admit Date/Time Initial Consult Date 11/18/16 Type of Consultation: NEPHROLOGY Reason for Consultation Hyponatremia Referring Provider: JENELLE COLBY MD 24 HR Interval Summary Free Text/Dictation pt stable, Na 132 yesterday, no labs today to review Exam/Review of Systems Vital Signs Vitals Vital Signs Date Time Temp Pulse Resp B/P Pulse Ox O2 Delivery O2 Flow Rate FiO2 11/24/16 08:26 63 11/24/16 07:23 97.9 18 144/65 97 11/24/16 06:03 30 Intake and Output 11/23/16 11/23/16 11/24/16 15:00 23:00 07:00 Intake Total 1200 ml Output Total 1000 ml Balance 200 ml Exam GENERAL: no acute distress, non verbal, non communicative HEENT: Pupils equal and reactive to light. NECK: Status post tracheostomy, on ventilator. Neck is supple. Site is clear. No erythema, no discharge. LUNGS: Bilateral coarse breath sounds heard. No wheezing. HEART: S1, S2, tachycardia, no murmur. ABDOMEN: Soft. G-tube site is clear. No leaking, no discharge. Erythema around the G-tube. EXTREMITIES: 1+ pitting edema in the right ankle. SKIN: The patient has some pressure ulcers on admissions including the right heel and buttocks. NEUROLOGICAL: Uncooperative for examination secondary to chronic encephalopathy. Constitutional: alert, oriented, well developed Results Result Diagram: 11/23/16 0640 11/23/16 0640 Results 24 hrs Laboratory Tests Test 11/23/16 11:27 11/23/16 18:09 11/23/16 19:57 11/24/16 00:45 Bedside Glucose 100 75 84 110 Test 11/24/16 06:00 11/24/16 10:06 Bedside Glucose 113 119 Medications Medications Current Medications Acetaminophen (Tylenol Tab) 650 mg Q6H PRN GTB PAIN AND OR ELEVATED TEMP; Start 11/18/16 at 23:30 Aspirin (Aspirin) 81 mg DAILY GTB Last administered on 11/24/16 10:13; Admin Dose 81 MG; Start 11/19/16 at 09:00 Atorvastatin Calcium (Lipitor) 40 mg QHS GTB Last administered on 11/23/16 20: 14; Admin Dose 40 MG; Start 11/19/16 at 21:00 Benazepril HCl (Lotensin) 10 mg DAILY GTB Last administered on 11/24/16 10:09 ; Admin Dose 10 MG; Start 11/19/16 at 09:00 Docusate Sodium (Colace Liquid Cup) 200 mg DAILY PRN GTB CONSTIPATION; Start at 23:30 Famotidine (Pepcid) 20 mg DAILY GTB Last administered on 11/24/16 10:08; Admin Dose 20 MG; Start 11/19/16 at 09:00 Ferrous Sulfate (Feosol Liquid Cup) 330 mg DAILY GTB Last administered on 10:06; Admin Dose 330 MG; Start 11/19/16 at 09:00 Hydralazine HCl (Apresoline) 25 mg Q6H PRN GTB ELEVATED BLOOD PRESSURE; Start 11/18/16 at 23:30 Metoprolol Tartrate (Lopressor) 25 mg BID GTB Last administered on 11/24/16 10 :08; Admin Dose 25 MG; Start 11/18/16 at 23:30 Mineral Oil (Fleet Mineral Oil Enema) 133 ml DAILY PRN [place] CONSTIPATION; Start 11/18/16 at 23:30 Multivitamins Therapeutic (Theragran) 1 tab DAILY PO Last administered on 10:08; Admin Dose 1 TAB; Start 11/19/16 at 09:00 Ondansetron HCl (Zofran Tab) 4 mg Q4H PRN GTB NAUSEA AND/OR VOMITING; Start at 23:30 Sodium Chloride (Nacl) 1 gm TID GTB Last administered on 11/24/16 10:07; Admin Dose 1 GM; Start 11/19/16 at 09:00 Tamsulosin HCl (Flomax) 0.4 mg HS PO Last administered on 11/23/16 20:14; Admin Dose 0.4 MG; Start 11/19/16 at 21:00 Glucagon (Glucagen) 1 mg DAILY PRN IM LOW GLUCOSE; Start 11/18/16 at 23:30 Miscellaneous Information 1 ea NOTE XX ; Start 11/18/16 at 23:45 Glucose (Glutose) 15 gm Q15M PRN PO DECREASED GLUCOSE; Start 11/18/16 at 23:45 Glucose (Glutose) 22.5 gm Q15M PRN PO DECREASED GLUCOSE; Start 11/18/16 at 23: 45 Dextrose (D50w Syringe) 25 ml Q15M PRN IV DECREASED GLUCOSE Last administered on 11/23/16 00:27; Admin Dose 25 ML; Start 11/18/16 at 23:45 Dextrose (D50w Syringe) 50 ml Q15M PRN IV DECREASED GLUCOSE; Start 11/18/16 at 23:45 Glucagon (Glucagen) 1 mg Q15M PRN IM DECREASED GLUCOSE; Start 11/18/16 at 23:45 Glucose (Glutose) 15 gm Q15M PRN BUCCAL DECREASED GLUCOSE; Start 11/18/16 at 23 :45 Diagnostic Test (Pha) (Accu-Chek) 1 ea Q6 XX Last administered on 11/24/16 06: 00; Admin Dose 1 EA; Start 11/20/16 at 00:00 Insulin Aspart (Novolog Insulin Pen) NOVOLOG *MILD* ALGORITHM Q6 SC Last administered on 11/22/16 05:49; Admin Dose 1 UNIT; Start 11/20/16 at 00:00 Insulin Detemir (Levemir) 10 unit BID SC Last administered on 11/24/16 10:11; Admin Dose 10 UNIT; Start 11/20/16 at 21:00 Potassium Chloride (Potassium Chloride Pwd/Soln) 40 meq DAILY GTB Last administered on 11/24/16 10:07; Admin Dose 40 MEQ; Start 11/23/16 at 09:00 LISSA PARK MD Nov 24, 2016 10:16
--- NOTE | 2016-11-24 11:04 | CONS ---
Date/Time of Note Date/Time of Note DATE: 11/24/16 TIME: 11:00 Assessment/Plan Assessment/Plan Additional Assessment/Plan Ventilator settings; AC of 14, tidal volume 500, PEEP of 5, 30% FiO2. Assessment recommendations; 1. Patient admitted for hyponatremia with interval improvement. 2. Chronic respiratory failure, history of craniotomy. 3. Extremely poor mental status. 4. Hypertension and diabetes. 5. Recent UTI and sepsis. Continue current treatment. Patient can be transferred to the shelter. Overall prognosis remains extremely poor. Consultation Date/Type/Reason Admit Date/Time Nov 20, 2016 at 15:20 Initial Consult Date 11/19/16 Type of Consultation: Pulmonary Referring Provider: JENELLE COLBY MD 24 HR Interval Summary Free Text/Dictation Patient condition remains stable. Has remained hemodynamically stable. No untoward events reported. General exam; middle-aged man, on ventilator via tracheostomy remains completely unresponsive. Exam/Review of Systems Vital Signs Vitals Vital Signs Date Time Temp Pulse Resp B/P Pulse Ox O2 Delivery O2 Flow Rate FiO2 11/24/16 08:26 63 11/24/16 07:23 97.9 18 144/65 97 11/24/16 06:03 30 Intake and Output 11/23/16 11/23/16 11/24/16 15:00 23:00 07:00 Intake Total 1200 ml Output Total 1000 ml Balance 200 ml Exam HEENT examination; supple neck, no JVD. No lymphadenopathy. Midline trachea. No thyromegaly. Tracheostomy in place. Insertion site is clean. There is a well-healed frontal craniotomy scar. Pupils are midsize reactive to light. Chest examination; clear to auscultation. S1-S2 audible, no murmurs. Regular rhythm. Abdomen examination; soft, nondistended. G-tube in place. Bowel sounds audible. No organomegaly. Extremity exam; no peripheral edema. DIGITAL PRODUCTION ARTIST examination; patient remains unresponsive. Results Result Diagram: 11/23/16 0640 11/23/16 0640 Results 24 hrs Laboratory Tests Test 11/23/16 11:27 11/23/16 18:09 11/23/16 19:57 11/24/16 00:45 Bedside Glucose 100 75 84 110 Test 11/24/16 06:00 11/24/16 10:06 Bedside Glucose 113 119 Medications Medications Current Medications Acetaminophen (Tylenol Tab) 650 mg Q6H PRN GTB PAIN AND OR ELEVATED TEMP; Start 11/18/16 at 23:30 Aspirin (Aspirin) 81 mg DAILY GTB Last administered on 11/24/16 10:13; Admin Dose 81 MG; Start 11/19/16 at 09:00 Atorvastatin Calcium (Lipitor) 40 mg QHS GTB Last administered on 11/23/16 20: 14; Admin Dose 40 MG; Start 11/19/16 at 21:00 Benazepril HCl (Lotensin) 10 mg DAILY GTB Last administered on 11/24/16 10:09 ; Admin Dose 10 MG; Start 11/19/16 at 09:00 Docusate Sodium (Colace Liquid Cup) 200 mg DAILY PRN GTB CONSTIPATION; Start at 23:30 Famotidine (Pepcid) 20 mg DAILY GTB Last administered on 11/24/16 10:08; Admin Dose 20 MG; Start 11/19/16 at 09:00 Ferrous Sulfate (Feosol Liquid Cup) 330 mg DAILY GTB Last administered on 10:06; Admin Dose 330 MG; Start 11/19/16 at 09:00 Hydralazine HCl (Apresoline) 25 mg Q6H PRN GTB ELEVATED BLOOD PRESSURE; Start 11/18/16 at 23:30 Metoprolol Tartrate (Lopressor) 25 mg BID GTB Last administered on 11/24/16 10 :08; Admin Dose 25 MG; Start 11/18/16 at 23:30 Mineral Oil (Fleet Mineral Oil Enema) 133 ml DAILY PRN [place] CONSTIPATION; Start 11/18/16 at 23:30 Multivitamins Therapeutic (Theragran) 1 tab DAILY PO Last administered on 10:08; Admin Dose 1 TAB; Start 11/19/16 at 09:00 Ondansetron HCl (Zofran Tab) 4 mg Q4H PRN GTB NAUSEA AND/OR VOMITING; Start at 23:30 Sodium Chloride (Nacl) 1 gm TID GTB Last administered on 11/24/16 10:07; Admin Dose 1 GM; Start 11/19/16 at 09:00 Tamsulosin HCl (Flomax) 0.4 mg HS PO Last administered on 11/23/16 20:14; Admin Dose 0.4 MG; Start 11/19/16 at 21:00 Glucagon (Glucagen) 1 mg DAILY PRN IM LOW GLUCOSE; Start 11/18/16 at 23:30 Miscellaneous Information 1 ea NOTE XX ; Start 11/18/16 at 23:45 Glucose (Glutose) 15 gm Q15M PRN PO DECREASED GLUCOSE; Start 11/18/16 at 23:45 Glucose (Glutose) 22.5 gm Q15M PRN PO DECREASED GLUCOSE; Start 11/18/16 at 23: 45 Dextrose (D50w Syringe) 25 ml Q15M PRN IV DECREASED GLUCOSE Last administered on 11/23/16 00:27; Admin Dose 25 ML; Start 11/18/16 at 23:45 Dextrose (D50w Syringe) 50 ml Q15M PRN IV DECREASED GLUCOSE; Start 11/18/16 at 23:45 Glucagon (Glucagen) 1 mg Q15M PRN IM DECREASED GLUCOSE; Start 11/18/16 at 23:45 Glucose (Glutose) 15 gm Q15M PRN BUCCAL DECREASED GLUCOSE; Start 11/18/16 at 23 :45 Diagnostic Test (Pha) (Accu-Chek) 1 ea Q6 XX Last administered on 11/24/16 06: 00; Admin Dose 1 EA; Start 11/20/16 at 00:00 Insulin Aspart (Novolog Insulin Pen) NOVOLOG *MILD* ALGORITHM Q6 SC Last administered on 11/22/16 05:49; Admin Dose 1 UNIT; Start 11/20/16 at 00:00 Insulin Detemir (Levemir) 10 unit BID SC Last administered on 11/24/16 10:11; Admin Dose 10 UNIT; Start 11/20/16 at 21:00 Potassium Chloride (Potassium Chloride Pwd/Soln) 40 meq DAILY GTB Last administered on 11/24/16 10:07; Admin Dose 40 MEQ; Start 11/23/16 at 09:00 JUANA DE LEÓN 28, 2017 11:04
[2016-11-24 11:58] LABS: POTASSIUM 4.2 mmol/L (3.5-5.1)
[2016-11-24 12:01] LABS: CREATININE 0.29 mg/dl (0.61-1.24)
[2016-11-24 12:02] LABS: CALCIUM 8.1 mg/dl (8.4-10.2)
--- NOTE | 2016-11-24 13:32 | PN ---
DATE: 11/24/2016 I spoke to case management today and briefly spoke to the patient's , who does not speak much En glish. I have asked her if her children are available and I can speak to them in [place] and they w ere not. I spoke to case management who has spoken to the family. I spoke to the and apparent ly she wants to continue with the DNR status, but she wants to do everything else. In the event delma t this gentleman decompensates while hospitalized, then I will organize another family conference. Please refer to my consultation done 11/23/2016, my prior meetings with the family. Dictated By: MARY VILLALPANDO MD, LP/PIPER Conf#: [id number] DID#: [id number]
--- NOTE | 2016-11-24 18:36 | PN ---
Date/Time of Note Date/Time of Note DATE: 11/24/16 TIME: 18:34 Assessment/Plan VTE Prophylaxis VTE Prophylaxis Intervention: SCD's Lines/Catheters IV [facility] Saline Lock Urinary Cath still in place: Yes Reason Cath still needed: urinary retention Assessment/Plan Chief Complaint/Hosp Course ASSESSMENT AND PLAN: 1. Acute on chronic hyponatremia secondary to syndrome of inappropriate antidiuretic hormone. Dr. Tovar is following in nephrology consultation. Patient is currently on sodium tablets supplement, continue to monitor sodium. 2. Ventilator-dependent respiratory failure. Continue ventilatory support. Dr. Clarke is following the patient in pulmonology consultation. Continue bronchodilators. 3. Brainstem glioma, status post ventriculoperitoneal shunt placement. Dr. Anand, palliative care consult is appreciated. 4. Status post cerebrovascular accident. 5. Chronic encephalopathy. 6. Seizure disorder. Continue Keppra. 7. Dysphagia with G-tube. 8. Transaminitis. Dr. Mas to follow up the patient in gastroenterology consultation. 9. Diabetes mellitus type 2. Continue NovoLog and Lantus. 10. Hypertension. Continue benazepril 11. Hyperlipidemia, continue Lipitor. 12. Bedridden status with functional quadriplegia. Continue to assist patient with activities of daily living. 13. Multiple pressure sores present on admission. Continue current wound care. 14. DNR status. Continue sequential compression device for deep venous thrombosis prophylaxis. Prevacid for peptic ulcer disease prophylaxis. Further recommendations based on clinical course. Plan of care discussed with Dr. Desir. Problems: Subjective 24 Hr Interval Summary Free Text/Dictation Patient remains afebrile, tolerates G-tube feeding well. Exam/Review of Systems Vital Signs Vitals Vital Signs Date Time Temp Pulse Resp B/P Pulse Ox O2 Delivery O2 Flow Rate FiO2 11/24/16 17:32 60 12 100 30 11/24/16 15:31 97.8 134/56 Intake and Output 11/23/16 11/23/16 11/24/16 15:00 23:00 07:00 Intake Total 1200 ml Output Total 1000 ml Balance 200 ml Exam PHYSICAL ASSESSMENT GENERAL: A well-developed, obtunded gentleman on ventilator support via tracheostomy. HEENT: Head is atraumatic, normocephalic. PERRLA. NECK: Supple. There is a tracheostomy at the base of the neck. LUNGS: Scattered rhonchi bilaterally. There is no wheezing noted. Slightly diminished at the bases. CARDIOVASCULAR: Normal S1, S2. The patient is slightly tachycardic. No murmurs, gallops, clicks, rubs noted. ABDOMEN: Round, soft, nondistended, nontender. Patient has a G-tube. EXTREMITIES: Mild edema. There is no clubbing or cyanosis. SKIN: Patient has multiple pressure ulcers present on admission including a right heel and buttocks. NEUROLOGIC: Patient is obtunded, does not follow any commands, did not move any extremities. Results Result Diagram: 11/23/16 0640 11/24/16 1139 Results 24 hrs Laboratory Tests Test 11/23/16 19:57 11/24/16 00:45 11/24/16 06:00 11/24/16 10:06 Bedside Glucose 84 110 113 119 Test 11/24/16 11:39 11/24/16 12:36 Sodium Level 129 L Potassium Level 4.2 Chloride Level 98 Carbon Dioxide Level 30 Anion Gap 5 L Blood Urea Nitrogen 17 Creatinine 0.29 L Glucose Level 131 # Calcium Level 8.1 L Bedside Glucose 156 Medications Medications Current Medications Acetaminophen (Tylenol Tab) 650 mg Q6H PRN GTB PAIN AND OR ELEVATED TEMP; Start 11/18/16 at 23:30 Aspirin (Aspirin) 81 mg DAILY GTB Last administered on 11/24/16 10:13; Admin Dose 81 MG; Start 11/19/16 at 09:00 Atorvastatin Calcium (Lipitor) 40 mg QHS GTB Last administered on 11/23/16 20: 14; Admin Dose 40 MG; Start 11/19/16 at 21:00 Benazepril HCl (Lotensin) 10 mg DAILY GTB Last administered on 11/24/16 10:09 ; Admin Dose 10 MG; Start 11/19/16 at 09:00 Docusate Sodium (Colace Liquid Cup) 200 mg DAILY PRN GTB CONSTIPATION; Start at 23:30 Famotidine (Pepcid) 20 mg DAILY GTB Last administered on 11/24/16 10:08; Admin Dose 20 MG; Start 11/19/16 at 09:00 Ferrous Sulfate (Feosol Liquid Cup) 330 mg DAILY GTB Last administered on 10:06; Admin Dose 330 MG; Start 11/19/16 at 09:00 Hydralazine HCl (Apresoline) 25 mg Q6H PRN GTB ELEVATED BLOOD PRESSURE; Start 11/18/16 at 23:30 Metoprolol Tartrate (Lopressor) 25 mg BID GTB Last administered on 11/24/16 10 :08; Admin Dose 25 MG; Start 11/18/16 at 23:30 Mineral Oil (Fleet Mineral Oil Enema) 133 ml DAILY PRN [place] CONSTIPATION; Start 11/18/16 at 23:30 Multivitamins Therapeutic (Theragran) 1 tab DAILY PO Last administered on 10:08; Admin Dose 1 TAB; Start 11/19/16 at 09:00 Ondansetron HCl (Zofran Tab) 4 mg Q4H PRN GTB NAUSEA AND/OR VOMITING; Start at 23:30 Sodium Chloride (Nacl) 1 gm TID GTB Last administered on 11/24/16 13:58; Admin Dose 1 GM; Start 11/19/16 at 09:00 Tamsulosin HCl (Flomax) 0.4 mg HS PO Last administered on 11/23/16 20:14; Admin Dose 0.4 MG; Start 11/19/16 at 21:00 Glucagon (Glucagen) 1 mg DAILY PRN IM LOW GLUCOSE; Start 11/18/16 at 23:30 Miscellaneous Information 1 ea NOTE XX ; Start 11/18/16 at 23:45 Glucose (Glutose) 15 gm Q15M PRN PO DECREASED GLUCOSE; Start 11/18/16 at 23:45 Glucose (Glutose) 22.5 gm Q15M PRN PO DECREASED GLUCOSE; Start 11/18/16 at 23: 45 Dextrose (D50w Syringe) 25 ml Q15M PRN IV DECREASED GLUCOSE Last administered on 11/23/16 00:27; Admin Dose 25 ML; Start 11/18/16 at 23:45 Dextrose (D50w Syringe) 50 ml Q15M PRN IV DECREASED GLUCOSE; Start 11/18/16 at 23:45 Glucagon (Glucagen) 1 mg Q15M PRN IM DECREASED GLUCOSE; Start 11/18/16 at 23:45 Glucose (Glutose) 15 gm Q15M PRN BUCCAL DECREASED GLUCOSE; Start 11/18/16 at 23 :45 Diagnostic Test (Pha) (Accu-Chek) 1 ea Q6 XX Last administered on 11/24/16 18: 03; Admin Dose 1 EA; Start 11/20/16 at 00:00 Insulin Aspart (Novolog Insulin Pen) NOVOLOG *MILD* ALGORITHM Q6 SC Last administered on 11/24/16 12:39; Admin Dose 1 UNIT; Start 11/20/16 at 00:00 Insulin Detemir (Levemir) 10 unit BID SC Last administered on 11/24/16 10:11; Admin Dose 10 UNIT; Start 11/20/16 at 21:00 Potassium Chloride (Potassium Chloride Pwd/Soln) 40 meq DAILY GTB Last administered on 11/24/16 10:07; Admin Dose 40 MEQ; Start 11/23/16 at 09:00 ALTHEA ACOSTA Nov 24, 2016 18:36
[2016-11-24] MEDS: TAMSULOSIN (SR) 0.4 MG CAP PO SCH (21:00)
[2016-11-24] MEDS: ATORVASTATIN 40 MG TAB GTB SCH (21:38)
[2016-11-25] VITALS (24 sets, daily range): BP systolic 117–156; BP diastolic 60–87; PULSE 51–70; RESP 12–22
[2016-11-25] MEDS: INSULIN ASPART [NOVOLOG] 3 ML PEN SC SCH ×4 (06:00→18:00)
[2016-11-25] MEDS: ACCU-CHEK XX SCH ×4 (06:00→18:00)
[2016-11-25] MEDS: DEXTROSE 50% 50 ML SYRINGE IV PRN (06:42)
[2016-11-25 06:48] LABS: ADD SCAN DIFF NO
[2016-11-25 06:59] LABS: BASOPHIL # 0.1 10^3/ul (0.0-0.1); BASOPHILS % 1.3 % (0.0-2.0); EOSINOPHILS # 0.2 10^3/ul (0.0-0.5); EOSINOPHILS % 2.7 % (0.0-7.0); HEMATOCRIT 30.1 % (42.0-52.0); HEMOGLOBIN 9.8 g/dl (14.0-18.0); LYMPHOCYTES # 1.1 10^3/ul (0.8-2.9); LYMPHOCYTES % 19.2 % (15.0-51.0); MEAN CORPUSCULAR HEMOGLOBIN 29.3 pg (29.0-33.0); MEAN CORPUSCULAR HGB CONC 32.6 g/dl (32.0-37.0); MEAN CORPUSCULAR VOLUME 90.1 fl (82.0-101.0); MEAN PLATELET VOLUME 9.5 fl (7.4-10.4); MONOCYTE # 0.7 10^3/ul (0.3-0.9); MONOCYTES % 12.3 % (0.0-11.0); NEUTROPHIL # 3.8 10^3/ul (1.6-7.5); PLATELET COUNT 272 10^3/UL (140-415); RED BLOOD COUNT 3.34 10^6/ul (4.70-6.10); RED CELL DISTRIBUTION WIDTH 16.6 % (11.5-14.5); WHITE BLOOD COUNT 5.9 10^3/ul (4.8-10.8)
[2016-11-25 07:22] LABS: POTASSIUM 4.1 mmol/L (3.5-5.1)
[2016-11-25 07:25] LABS: CREATININE 0.31 mg/dl (0.61-1.24)
[2016-11-25 07:26] LABS: CALCIUM 8.1 mg/dl (8.4-10.2)
[2016-11-25] MEDS: FERROUS SULFATE 60 MG/ML 5ML CUP GTB SCH (08:21)
[2016-11-25] MEDS: MULTIVITAMINS THERAPEUTIC TAB PO SCH (08:22)
[2016-11-25] MEDS: SODIUM CHLORIDE 1 GM TAB GTB SCH ×3 (08:22→20:54)
[2016-11-25] MEDS: FAMOTIDINE 20 MG TAB GTB SCH (08:23)
[2016-11-25] MEDS: BENAZEPRIL 10 MG TAB GTB SCH (08:23)
[2016-11-25] MEDS: POTASSIUM CHLORIDE 20 MEQ POWDER FOR ORAL SOLN GTB SCH (08:23)
[2016-11-25] MEDS: ASPIRIN 81 MG TAB GTB SCH (09:48)
[2016-11-25] MEDS: METOPROLOL 25 MG TAB GTB SCH ×2 (09:49→20:55)
[2016-11-25] MEDS: INSULIN DETEMIR [LEVEMIR] 3ML CART SC SCH ×2 (09:52→21:00)
--- NOTE | 2016-11-25 11:13 | CONS ---
Date/Time of Note Date/Time of Note DATE: 11/25/16 TIME: 11:12 Assessment/Plan Assessment/Plan Additional Assessment/Plan 1. Severe hyponatremia, acute on chronic hyponatremia secondary to syndrome of inappropriate antidiuretic hormone with some prerenal azotemia. 2. History of possible chronic hyponatremia secondary to syndrome of inappropriate antidiuretic hormone. The patient has been on demeclocycline 300 mg p.o. b.i.d., maximum dose, unresponsive. Tolvaptan was not covered in the shelter facility. 3. History of hypertension. 4. History of diabetes mellitus. 5. Chronic encephalopathy. 6. 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 7. History of G-tube in place. plan: demeclocycline stopped, on soidum chloride tablet 1 gram PO TID , Tolvaptan will not be covered in SNF as per capture manager, Na 131 today Na improved with tolvaptan, now will monitor Na and use tolvaptan as needed due to mildly elevated LFTs on labs today will follow up Consultation Date/Type/Reason Admit Date/Time Initial Consult Date 11/18/16 Type of Consultation: NEPHROLOGY Referring Provider: JENELLE COLBY MD 24 HR Interval Summary Free Text/Dictation pt remained stable, Na 131 today from 129 Exam/Review of Systems Vital Signs Vitals Vital Signs Date Time Temp Pulse Resp B/P Pulse Ox O2 Delivery O2 Flow Rate FiO2 11/25/16 09:24 58 12 99 30 11/25/16 07:28 98.5 127/87 Intake and Output 11/24/16 11/24/16 11/25/16 15:00 23:00 07:00 Intake Total 980 ml Output Total 700 ml Balance 280 ml Exam GENERAL: no acute distress, non verbal, non communicative HEENT: Pupils equal and reactive to light. NECK: Status post tracheostomy, on ventilator. Neck is supple. Site is clear. No erythema, no discharge. LUNGS: Bilateral coarse breath sounds heard. No wheezing. HEART: S1, S2, tachycardia, no murmur. ABDOMEN: Soft. G-tube site is clear. No leaking, no discharge. Erythema around the G-tube. EXTREMITIES: 1+ pitting edema in the right ankle. SKIN: The patient has some pressure ulcers on admissions including the right heel and buttocks. NEUROLOGICAL: Uncooperative for examination secondary to chronic encephalopathy. Constitutional: alert, oriented, well developed Results Result Diagram: 11/25/16 0625 11/25/16 0625 Results 24 hrs Laboratory Tests Test 11/24/16 11:39 11/24/16 12:36 11/24/16 21:44 11/25/16 00:24 Sodium Level 129 L Potassium Level 4.2 Chloride Level 98 Carbon Dioxide Level 30 Anion Gap 5 L Blood Urea Nitrogen 17 Creatinine 0.29 L Glucose Level 131 # Calcium Level 8.1 L Bedside Glucose 156 100 105 Test 11/25/16 06:25 11/25/16 06:32 11/25/16 07:01 White Blood Count 5.9 # Red Blood Count 3.34 L Hemoglobin 9.8 L Hematocrit 30.1 L Mean Corpuscular Volume 90.1 Mean Corpuscular Hemoglobin 29.3 Mean Corpuscular Hemoglobin Concent 32.6 Red Cell Distribution Width 16.6 H Platelet Count 272 Mean Platelet Volume 9.5 Neutrophils % 64.0 Lymphocytes % 19.2 Monocytes % 12.3 H Eosinophils % 2.7 Basophils % 1.3 Nucleated Red Blood Cells % 0.0 Neutrophils # 3.8 Lymphocytes # 1.1 Monocytes # 0.7 Eosinophils # 0.2 Basophils # 0.1 Nucleated Red Blood Cells # 0.0 Sodium Level 131 L Potassium Level 4.1 Chloride Level 97 Carbon Dioxide Level 28 Anion Gap 10 # Blood Urea Nitrogen 17 Creatinine 0.31 L Glucose Level 55 #L Calcium Level 8.1 L Bedside Glucose 58 L 108 Medications Medications Current Medications Acetaminophen (Tylenol Tab) 650 mg Q6H PRN GTB PAIN AND OR ELEVATED TEMP; Start 11/18/16 at 23:30 Aspirin (Aspirin) 81 mg DAILY GTB Last administered on 11/25/16 09:48; Admin Dose 81 MG; Start 11/19/16 at 09:00 Atorvastatin Calcium (Lipitor) 40 mg QHS GTB Last administered on 11/24/16 21: 38; Admin Dose 40 MG; Start 11/19/16 at 21:00 Benazepril HCl (Lotensin) 10 mg DAILY GTB Last administered on 11/25/16 08:23 ; Admin Dose 10 MG; Start 11/19/16 at 09:00 Docusate Sodium (Colace Liquid Cup) 200 mg DAILY PRN GTB CONSTIPATION; Start at 23:30 Famotidine (Pepcid) 20 mg DAILY GTB Last administered on 11/25/16 08:23; Admin Dose 20 MG; Start 11/19/16 at 09:00 Ferrous Sulfate (Feosol Liquid Cup) 330 mg DAILY GTB Last administered on 08:21; Admin Dose 330 MG; Start 11/19/16 at 09:00 Hydralazine HCl (Apresoline) 25 mg Q6H PRN GTB ELEVATED BLOOD PRESSURE; Start 11/18/16 at 23:30 Metoprolol Tartrate (Lopressor) 25 mg BID GTB Last administered on 11/25/16 09 :49; Admin Dose 25 MG; Start 11/18/16 at 23:30 Mineral Oil (Fleet Mineral Oil Enema) 133 ml DAILY PRN [place] CONSTIPATION; Start 11/18/16 at 23:30 Multivitamins Therapeutic (Theragran) 1 tab DAILY PO Last administered on 08:22; Admin Dose 1 TAB; Start 11/19/16 at 09:00 Ondansetron HCl (Zofran Tab) 4 mg Q4H PRN GTB NAUSEA AND/OR VOMITING; Start at 23:30 Sodium Chloride (Nacl) 1 gm TID GTB Last administered on 11/25/16 08:22; Admin Dose 1 GM; Start 11/19/16 at 09:00 Tamsulosin HCl (Flomax) 0.4 mg HS PO Last administered on 11/23/16 20:14; Admin Dose 0.4 MG; Start 11/19/16 at 21:00 Glucagon (Glucagen) 1 mg DAILY PRN IM LOW GLUCOSE; Start 11/18/16 at 23:30 Miscellaneous Information 1 ea NOTE XX ; Start 11/18/16 at 23:45 Glucose (Glutose) 15 gm Q15M PRN PO DECREASED GLUCOSE; Start 11/18/16 at 23:45 Glucose (Glutose) 22.5 gm Q15M PRN PO DECREASED GLUCOSE; Start 11/18/16 at 23: 45 Dextrose (D50w Syringe) 25 ml Q15M PRN IV DECREASED GLUCOSE Last administered on 11/25/16 06:42; Admin Dose 25 ML; Start 11/18/16 at 23:45 Dextrose (D50w Syringe) 50 ml Q15M PRN IV DECREASED GLUCOSE; Start 11/18/16 at 23:45 Glucagon (Glucagen) 1 mg Q15M PRN IM DECREASED GLUCOSE; Start 11/18/16 at 23:45 Glucose (Glutose) 15 gm Q15M PRN BUCCAL DECREASED GLUCOSE; Start 11/18/16 at 23 :45 Diagnostic Test (Pha) (Accu-Chek) 1 ea Q6 XX Last administered on 11/24/16 18: 03; Admin Dose 1 EA; Start 11/20/16 at 00:00 Insulin Aspart (Novolog Insulin Pen) NOVOLOG *MILD* ALGORITHM Q6 SC Last administered on 11/24/16 12:39; Admin Dose 1 UNIT; Start 11/20/16 at 00:00 Insulin Detemir (Levemir) 10 unit BID SC Last administered on 11/25/16 09:52; Admin Dose 10 UNIT; Start 11/20/16 at 21:00 Potassium Chloride (Potassium Chloride Pwd/Soln) 40 meq DAILY GTB Last administered on 11/25/16 08:23; Admin Dose 40 MEQ; Start 11/23/16 at 09:00 LISSA PARK MD Nov 25, 2016 11:13
--- NOTE | 2016-11-25 12:04 | CONS ---
Date/Time of Note Date/Time of Note DATE: 11/25/16 TIME: 12:02 Assessment/Plan Assessment/Plan Additional Assessment/Plan Ventilator settings; AC of 14, tidal volume 5 oh, PEEP of 5, 30% FiO2. Assessment recommendations; 1. Patient admitted for hyponatremia with interval resolution. 2. Chronic respiratory failure, patient with severe anoxic brain injury. Status post craniotomy. Remains ventilator dependent. 3. Hypertension. 4. Diabetes. 5. Status post recent UTI and sepsis. Off antibiotics now. Patient awaiting transfer to rehab center. Prognosis remains poor. Consultation Date/Type/Reason Admit Date/Time Nov 20, 2016 at 15:20 Initial Consult Date 11/19/16 Type of Consultation: Pulmonary Referring Provider: JENELLE COLBY MD 24 HR Interval Summary Free Text/Dictation Patient condition is stable. Has remained hemodynamically stable. 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 General exam; middle-aged man, on ventilator via tracheostomy currently in no distress. Remains unresponsive. Exam/Review of Systems Vital Signs Vitals Vital Signs Date Time Temp Pulse Resp B/P Pulse Ox O2 Delivery O2 Flow Rate FiO2 11/25/16 11:24 60 12 99 30 11/25/16 11:23 98.2 128/67 Intake and Output 11/24/16 11/24/16 11/25/16 15:00 23:00 07:00 Intake Total 980 ml Output Total 700 ml Balance 280 ml Exam HEENT exam; supple neck, no JVD. No lymphadenopathy. Midline trachea. Tracheostomy in place. There is a well-healed frontal craniotomy scar. Chest examination AL: Clear to auscultation. S1-S2 audible, no murmurs. Regular rhythm. Abdomen examination; soft, nondistended. No organomegaly. Bowel is audible. G -tube in place. Extremity exam is; no peripheral edema. FO[employer]BILE [employer] examination; patient remains unresponsive. Results Result Diagram: 11/25/16 0625 11/25/16 0625 Results 24 hrs Laboratory Tests Test 11/24/16 12:36 11/24/16 21:44 11/25/16 00:24 11/25/16 06:25 Bedside Glucose 156 100 105 White Blood Count 5.9 # Red Blood Count 3.34 L Hemoglobin 9.8 L Hematocrit 30.1 L Mean Corpuscular Volume 90.1 Mean Corpuscular Hemoglobin 29.3 Mean Corpuscular Hemoglobin Concent 32.6 Red Cell Distribution Width 16.6 H Platelet Count 272 Mean Platelet Volume 9.5 Neutrophils % 64.0 Lymphocytes % 19.2 Monocytes % 12.3 H Eosinophils % 2.7 Basophils % 1.3 Nucleated Red Blood Cells % 0.0 Neutrophils # 3.8 Lymphocytes # 1.1 Monocytes # 0.7 Eosinophils # 0.2 Basophils # 0.1 Nucleated Red Blood Cells # 0.0 Sodium Level 131 L Potassium Level 4.1 Chloride Level 97 Carbon Dioxide Level 28 Anion Gap 10 # Blood Urea Nitrogen 17 Creatinine 0.31 L Glucose Level 55 #L Calcium Level 8.1 L Test 11/25/16 06:32 11/25/16 07:01 11/25/16 11:53 Bedside Glucose 58 L 108 92 Medications Medications Current Medications Acetaminophen (Tylenol Tab) 650 mg Q6H PRN GTB PAIN AND OR ELEVATED TEMP; Start 11/18/16 at 23:30 Aspirin (Aspirin) 81 mg DAILY GTB Last administered on 11/25/16 09:48; Admin Dose 81 MG; Start 11/19/16 at 09:00 Atorvastatin Calcium (Lipitor) 40 mg QHS GTB Last administered on 11/24/16 21: 38; Admin Dose 40 MG; Start 11/19/16 at 21:00 Benazepril HCl (Lotensin) 10 mg DAILY GTB Last administered on 11/25/16 08:23 ; Admin Dose 10 MG; Start 11/19/16 at 09:00 Docusate Sodium (Colace Liquid Cup) 200 mg DAILY PRN GTB CONSTIPATION; Start at 23:30 Famotidine (Pepcid) 20 mg DAILY GTB Last administered on 11/25/16 08:23; Admin Dose 20 MG; Start 11/19/16 at 09:00 Ferrous Sulfate (Feosol Liquid Cup) 330 mg DAILY GTB Last administered on 08:21; Admin Dose 330 MG; Start 11/19/16 at 09:00 Hydralazine HCl (Apresoline) 25 mg Q6H PRN GTB ELEVATED BLOOD PRESSURE; Start 11/18/16 at 23:30 Metoprolol Tartrate (Lopressor) 25 mg BID GTB Last administered on 11/25/16 09 :49; Admin Dose 25 MG; Start 11/18/16 at 23:30 Mineral Oil (Fleet Mineral Oil Enema) 133 ml DAILY PRN [place] CONSTIPATION; Start 11/18/16 at 23:30 Multivitamins Therapeutic (Theragran) 1 tab DAILY PO Last administered on 08:22; Admin Dose 1 TAB; Start 11/19/16 at 09:00 Ondansetron HCl (Zofran Tab) 4 mg Q4H PRN GTB NAUSEA AND/OR VOMITING; Start at 23:30 Sodium Chloride (Nacl) 1 gm TID GTB Last administered on 11/25/16 08:22; Admin Dose 1 GM; Start 11/19/16 at 09:00 Tamsulosin HCl (Flomax) 0.4 mg HS PO Last administered on 11/23/16 20:14; Admin Dose 0.4 MG; Start 11/19/16 at 21:00 Glucagon (Glucagen) 1 mg DAILY PRN IM LOW GLUCOSE; Start 11/18/16 at 23:30 Miscellaneous Information 1 ea NOTE XX ; Start 11/18/16 at 23:45 Glucose (Glutose) 15 gm Q15M PRN PO DECREASED GLUCOSE; Start 11/18/16 at 23:45 Glucose (Glutose) 22.5 gm Q15M PRN PO DECREASED GLUCOSE; Start 11/18/16 at 23: 45 Dextrose (D50w Syringe) 25 ml Q15M PRN IV DECREASED GLUCOSE Last administered on 11/25/16 06:42; Admin Dose 25 ML; Start 11/18/16 at 23:45 Dextrose (D50w Syringe) 50 ml Q15M PRN IV DECREASED GLUCOSE; Start 11/18/16 at 23:45 Glucagon (Glucagen) 1 mg Q15M PRN IM DECREASED GLUCOSE; Start 11/18/16 at 23:45 Glucose (Glutose) 15 gm Q15M PRN BUCCAL DECREASED GLUCOSE; Start 11/18/16 at 23 :45 Diagnostic Test (Pha) (Accu-Chek) 1 ea Q6 XX Last administered on 11/24/16 18: 03; Admin Dose 1 EA; Start 11/20/16 at 00:00 Insulin Aspart (Novolog Insulin Pen) NOVOLOG *MILD* ALGORITHM Q6 SC Last administered on 11/24/16 12:39; Admin Dose 1 UNIT; Start 11/20/16 at 00:00 Insulin Detemir (Levemir) 10 unit BID SC Last administered on 11/25/16 09:52; Admin Dose 10 UNIT; Start 11/20/16 at 21:00 Potassium Chloride (Potassium Chloride Pwd/Soln) 40 meq DAILY GTB Last administered on 11/25/16 08:23; Admin Dose 40 MEQ; Start 11/23/16 at 09:00 JUANA DE LEÓN Nov 25, 2016 12:04
--- NOTE | 2016-11-25 14:05 | PN ---
Date/Time of Note Date/Time of Note DATE: 11/25/16 TIME: 13:45 Assessment/Plan VTE Prophylaxis VTE Prophylaxis Intervention: SCD's Lines/Catheters IV Catheter Type (from [facility] [facility] Urinary Cath still in place: Yes Reason Cath still needed: urinary retention Assessment/Plan Chief Complaint/Hosp Course ASSESSMENT AND PLAN: 1. Acute on chronic hyponatremia secondary to syndrome of inappropriate antidiuretic hormone. Dr. Tovar is following in nephrology consultation. Patient is currently on sodium tablets supplement, continue to monitor sodium. 2. Ventilator-dependent respiratory failure. Continue ventilatory support. Dr. Clarke is following the patient in pulmonology consultation. Continue bronchodilators. 3. Brainstem glioma, status post ventriculoperitoneal shunt placement. Dr. Anand, palliative care consult is appreciated. 4. Status post cerebrovascular accident. 5. Chronic encephalopathy. 6. Seizure disorder. Continue Keppra. 7. Dysphagia with G-tube. 8. Transaminitis. Dr. Mas is following in gastroenterology consultation. 9. Diabetes mellitus type 2. Continue NovoLog and Lantus. 10. Hypertension. Continue benazepril 11. Hyperlipidemia, continue Lipitor. 12. Bedridden status with functional quadriplegia. Continue to assist patient with activities of daily living. 13. Multiple pressure sores present on admission. Continue current wound care. 14. R great big toe ulcer, Dr. Jaffe is asked to see patient in podiatry consultation DNR status. Continue sequential compression device for deep venous thrombosis prophylaxis. Prevacid for peptic ulcer disease prophylaxis. Further recommendations based on clinical course. Plan of care discussed with Dr. Desir. Problems: Subjective 24 Hr Interval Summary Free Text/Dictation Patient tolerates G-tube feeding well, remains afebrile, sinus bradycardia on telemetry. Exam/Review of Systems Vital Signs Vitals Vital Signs Date Time Temp Pulse Resp B/P Pulse Ox O2 Delivery O2 Flow Rate FiO2 11/25/16 13:25 56 12 99 30 11/25/16 11:23 98.2 128/67 Intake and Output 11/24/16 11/24/16 11/25/16 15:00 23:00 07:00 Intake Total 980 ml Output Total 700 ml Balance 280 ml Exam PHYSICAL ASSESSMENT GENERAL: A well-developed, obtunded gentleman on ventilator support via tracheostomy. HEENT: Head is atraumatic, normocephalic. PERRLA. NECK: Supple. There is a tracheostomy at the base of the neck. LUNGS: Scattered rhonchi bilaterally. There is no wheezing noted. Slightly diminished at the bases. CARDIOVASCULAR: Normal S1, S2. The patient is slightly tachycardic. No murmurs, gallops, clicks, rubs noted. ABDOMEN: Round, soft, nondistended, nontender. Patient has a G-tube. EXTREMITIES: Mild edema. There is no clubbing or cyanosis. SKIN: Patient has multiple pressure ulcers present on admission including a right heel and buttocks. NEUROLOGIC: Patient is obtunded, does not follow any commands, did not move any extremities. Results Result Diagram: 11/25/1662411/25/16624 Results 24 hrs Laboratory Tests Test 11/24/16 21:44 11/25/16 00:24 11/25/16 06:25 11/25/16 06:32 Bedside Glucose 100 105 58 L White Blood Count 5.9 # Red Blood Count 3.34 L Hemoglobin 9.8 L Hematocrit 30.1 L Mean Corpuscular Volume 90.1 Mean Corpuscular Hemoglobin 29.3 Mean Corpuscular Hemoglobin Concent 32.6 Red Cell Distribution Width 16.6 H Platelet Count 272 Mean Platelet Volume 9.5 Neutrophils % 64.0 Lymphocytes % 19.2 Monocytes % 12.3 H Eosinophils % 2.7 Basophils % 1.3 Nucleated Red Blood Cells % 0.0 Neutrophils # 3.8 Lymphocytes # 1.1 Monocytes # 0.7 Eosinophils # 0.2 Basophils # 0.1 Nucleated Red Blood Cells # 0.0 Sodium Level 131 L Potassium Level 4.1 Chloride Level 97 Carbon Dioxide Level 28 Anion Gap 10 # Blood Urea Nitrogen 17 Creatinine 0.31 L Glucose Level 55 #L Calcium Level 8.1 L Test 11/25/16 07:01 11/25/16 11:53 Bedside Glucose 108 92 Medications Medications Current Medications Acetaminophen (Tylenol Tab) 650 mg Q6H PRN GTB PAIN AND OR ELEVATED TEMP; Start 11/18/16 at 23:30 Aspirin (Aspirin) 81 mg DAILY GTB Last administered on 11/25/16t 09:48; Admin Dose 81 MG; Start 11/19/16 at 09:00 Atorvastatin Calcium (Lipitor) 40 mg QHS GTB Last administered on 11/24/16 21: 38; Admin Dose 40 MG; Start 11/19/16 at 21:00 Benazepril HCl (Lotensin) 10 mg DAILY GTB Last administered on 11/25/16 08:23 ; Admin Dose 10 MG; Start 11/19/16 at 09:00 Docusate Sodium (Colace Liquid Cup) 200 mg DAILY PRN GTB CONSTIPATION; Start at 23:30 Famotidine (Pepcid) 20 mg DAILY GTB Last administered on 11/25/16 08:23; Admin Dose 20 MG; Start 11/19/16 at 09:00 Ferrous Sulfate (Feosol Liquid Cup) 330 mg DAILY GTB Last administered on 08:21; Admin Dose 330 MG; Start 11/19/16 at 09:00 Hydralazine HCl (Apresoline) 25 mg Q6H PRN GTB ELEVATED BLOOD PRESSURE; Start 11/18/16 at 23:30 Metoprolol Tartrate (Lopressor) 25 mg BID GTB Last administered on 11/25/16 09 :49; Admin Dose 25 MG; Start 11/18/16 at 23:30 Mineral Oil (Fleet Mineral Oil Enema) 133 ml DAILY PRN [place] CONSTIPATION; Start 11/18/16 at 23:30 Multivitamins Therapeutic (Theragran) 1 tab DAILY PO Last administered on 08:22; Admin Dose 1 TAB; Start 11/19/16 at 09:00 Ondansetron HCl (Zofran Tab) 4 mg Q4H PRN GTB NAUSEA AND/OR VOMITING; Start at 23:30 Sodium Chloride (Nacl) 1 gm TID GTB Last administered on 11/25/16 13:00; Admin Dose 1 GM; Start 11/19/16 at 09:00 Tamsulosin HCl (Flomax) 0.4 mg HS PO Last administered on 11/23/16 20:14; Admin Dose 0.4 MG; Start 11/19/16 at 21:00 Glucagon (Glucagen) 1 mg DAILY PRN IM LOW GLUCOSE; Start 11/18/16 at 23:30 Miscellaneous Information 1 ea NOTE XX ; Start 11/18/16 at 23:45 Glucose (Glutose) 15 gm Q15M PRN PO DECREASED GLUCOSE; Start 11/18/16 at 23:45 Glucose (Glutose) 22.5 gm Q15M PRN PO DECREASED GLUCOSE; Start 11/18/16 at 23: 45 Dextrose (D50w Syringe) 25 ml Q15M PRN IV DECREASED GLUCOSE Last administered on 11/25/16 06:42; Admin Dose 25 ML; Start 11/18/16 at 23:45 Dextrose (D50w Syringe) 50 ml Q15M PRN IV DECREASED GLUCOSE; Start 11/18/16 at 23:45 Glucagon (Glucagen) 1 mg Q15M PRN IM DECREASED GLUCOSE; Start 11/18/16 at 23:45 Glucose (Glutose) 15 gm Q15M PRN BUCCAL DECREASED GLUCOSE; Start 11/18/16 at 23 :45 Diagnostic Test (Pha) (Accu-Chek) 1 ea Q6 XX Last administered on 11/25/16 12: 07; Admin Dose 1 EA; Start 11/20/16 at 00:00 Insulin Aspart (Novolog Insulin Pen) NOVOLOG *MILD* ALGORITHM Q6 SC Last administered on 11/24/16 12:39; Admin Dose 1 UNIT; Start 11/20/16 at 00:00 Insulin Detemir (Levemir) 10 unit BID SC Last administered on 11/25/16 09:52; Admin Dose 10 UNIT; Start 11/20/16 at 21:00 Potassium Chloride (Potassium Chloride Pwd/Soln) 40 meq DAILY GTB Last administered on 11/25/16 08:23; Admin Dose 40 MEQ; Start 11/23/16 at 09:00 ALTHEA ACOSTA Nov 25, 2016 14:03
[2016-11-25] MEDS ORDERED: CEPHALEXIN 500 MG CAP PO SCH (18:30)
[2016-11-25] MEDS: TAMSULOSIN (SR) 0.4 MG CAP PO SCH (20:47)
[2016-11-25] MEDS: ATORVASTATIN 40 MG TAB GTB SCH (20:54)
--- NOTE | 2016-11-25 22:49 | CONS ---
Date/Time of Note Date/Time of Note DATE: 11/25/16 TIME: 22:49 Consultation Date/Type/Reason Admit Date/Time Nov 20, 2016 at 15:20 Constitutional: requiring IVF, requiring O2 Social History Smoking Status: Unknown if ever smoked Exam/Review of Systems Vital Signs Vitals Vital Signs Date Time Temp Pulse Resp B/P Pulse Ox O2 Delivery O2 Flow Rate FiO2 11/25/16 20:24 70 11/25/16 19:40 98.0 20 156/74 100 11/25/16 17:29 30 Intake and Output 11/24/16 11/24/16 11/25/16 15:00 23:00 07:00 Intake Total 980 ml Output Total 700 ml Balance 280 ml Results Result Diagram: 11/25/1625 11/25/16 0625 Results 24 hrs Laboratory Tests Test 11/25/16 00:24 11/25/16 06:25 11/25/16 06:32 11/25/16 07:01 Bedside Glucose 105 58 L 108 White Blood Count 5.9 # Red Blood Count 3.34 L Hemoglobin 9.8 L Hematocrit 30.1 L Mean Corpuscular Volume 90.1 Mean Corpuscular Hemoglobin 29.3 Mean Corpuscular Hemoglobin Concent 32.6 Red Cell Distribution Width 16.6 H Platelet Count 272 Mean Platelet Volume 9.5 Neutrophils % 64.0 Lymphocytes % 19.2 Monocytes % 12.3 H Eosinophils % 2.7 Basophils % 1.3 Nucleated Red Blood Cells % 0.0 Neutrophils # 3.8 Lymphocytes # 1.1 Monocytes # 0.7 Eosinophils # 0.2 Basophils # 0.1 Nucleated Red Blood Cells # 0.0 Sodium Level 131 L Potassium Level 4.1 Chloride Level 97 Carbon Dioxide Level 28 Anion Gap 10 # Blood Urea Nitrogen 17 Creatinine 0.31 L Glucose Level 55 #L Calcium Level 8.1 L Test 11/25/16 11:53 11/25/16 17:45 11/25/16 21:00 Bedside Glucose 92 96 86 Medications Medications Current Medications Acetaminophen (Tylenol Tab) 650 mg Q6H PRN GTB PAIN AND OR ELEVATED TEMP; Start 11/18/16 at 23:30 Aspirin (Aspirin) 81 mg DAILY GTB Last administered on 11/25/16t 09:48; Admin Dose 81 MG; Start 11/19/16 at 09:00 Atorvastatin Calcium (Lipitor) 40 mg QHS GTB Last administered on 11/25/16 20: 54; Admin Dose 40 MG; Start 11/19/16 at 21:00 Benazepril HCl (Lotensin) 10 mg DAILY GTB Last administered on 11/25/16 08:23 ; Admin Dose 10 MG; Start 11/19/16 at 09:00 Docusate Sodium (Colace Liquid Cup) 200 mg DAILY PRN GTB CONSTIPATION; Start at 23:30 Famotidine (Pepcid) 20 mg DAILY GTB Last administered on 11/25/16 08:23; Admin Dose 20 MG; Start 11/19/16 at 09:00 Ferrous Sulfate (Feosol Liquid Cup) 330 mg DAILY GTB Last administered on 08:21; Admin Dose 330 MG; Start 11/19/16 at 09:00 Hydralazine HCl (Apresoline) 25 mg Q6H PRN GTB ELEVATED BLOOD PRESSURE; Start 11/18/16 at 23:30 Metoprolol Tartrate (Lopressor) 25 mg BID GTB Last administered on 11/25/16 20 :55; Admin Dose 25 MG; Start 11/18/16 at 23:30 Mineral Oil (Fleet Mineral Oil Enema) 133 ml DAILY PRN [place] CONSTIPATION; Start 11/18/16 at 23:30 Multivitamins Therapeutic (Theragran) 1 tab DAILY PO Last administered on 08:22; Admin Dose 1 TAB; Start 11/19/16 at 09:00 Ondansetron HCl (Zofran Tab) 4 mg Q4H PRN GTB NAUSEA AND/OR VOMITING; Start at 23:30 Sodium Chloride (Nacl) 1 gm TID GTB Last administered on 11/25/16 20:54; Admin Dose 1 GM; Start 11/19/16 at 09:00 Tamsulosin HCl (Flomax) 0.4 mg HS PO Last administered on 11/23/16 20:14; Admin Dose 0.4 MG; Start 11/19/16 at 21:00 Glucagon (Glucagen) 1 mg DAILY PRN IM LOW GLUCOSE; Start 11/18/16 at 23:30 Miscellaneous Information 1 ea NOTE XX ; Start 11/18/16 at 23:45 Glucose (Glutose) 15 gm Q15M PRN PO DECREASED GLUCOSE; Start 11/18/16 at 23:45 Glucose (Glutose) 22.5 gm Q15M PRN PO DECREASED GLUCOSE; Start 11/18/16 at 23: 45 Dextrose (D50w Syringe) 25 ml Q15M PRN IV DECREASED GLUCOSE Last administered on 11/25/16 06:42; Admin Dose 25 ML; Start 11/18/16 at 23:45 Dextrose (D50w Syringe) 50 ml Q15M PRN IV DECREASED GLUCOSE; Start 11/18/16 at 23:45 Glucagon (Glucagen) 1 mg Q15M PRN IM DECREASED GLUCOSE; Start 11/18/16 at 23:45 Glucose (Glutose) 15 gm Q15M PRN BUCCAL DECREASED GLUCOSE; Start 11/18/16 at 23 :45 Diagnostic Test (Pha) (Accu-Chek) 1 ea Q6 XX Last administered on 11/25/16 18: 00; Admin Dose 1 EA; Start 11/20/16 at 00:00 Insulin Aspart (Novolog Insulin Pen) NOVOLOG *MILD* ALGORITHM Q6 SC Last administered on 11/24/16 12:39; Admin Dose 1 UNIT; Start 11/20/16 at 00:00 Insulin Detemir (Levemir) 10 unit BID SC Last administered on 11/25/16 09:52; Admin Dose 10 UNIT; Start 11/20/16 at 21:00 Potassium Chloride (Potassium Chloride Pwd/Soln) 40 meq DAILY GTB Last administered on 11/25/16 08:23; Admin Dose 40 MEQ; Start 11/23/16 at 09:00 Cephalexin (Keflex) 500 mg Q6 PO Last administered on 11/25/16 18:36; Admin Dose 500 MG; Start 11/25/16 at 18:30 RANDAL LEAL DPM Nov 25, 2016 22:49
[2016-11-26] VITALS (23 sets, daily range): BP systolic 121–156; BP diastolic 64–79; PULSE 56–80; RESP 12–20
[2016-11-26] MEDS: CEPHALEXIN (50 MG/ML PO SYG) GTB SCH ×4 (02:50→17:24)
[2016-11-26] MEDS: INSULIN ASPART [NOVOLOG] 3 ML PEN SC SCH ×4 (05:53→17:22)
[2016-11-26] MEDS: ACCU-CHEK XX SCH ×4 (06:00→17:22)
[2016-11-26 06:34] LABS: ADD SCAN DIFF NO
[2016-11-26 06:37] LABS: BASOPHIL # 0.1 10^3/ul (0.0-0.1); BASOPHILS % 1.1 % (0.0-2.0); EOSINOPHILS # 0.2 10^3/ul (0.0-0.5); EOSINOPHILS % 3.6 % (0.0-7.0); HEMATOCRIT 27.7 % (42.0-52.0); HEMOGLOBIN 9.1 g/dl (14.0-18.0); LYMPHOCYTES # 0.7 10^3/ul (0.8-2.9); LYMPHOCYTES % 13.8 % (15.0-51.0); MEAN CORPUSCULAR HEMOGLOBIN 29.4 pg (29.0-33.0); MEAN CORPUSCULAR HGB CONC 32.9 g/dl (32.0-37.0); MEAN CORPUSCULAR VOLUME 89.4 fl (82.0-101.0); MEAN PLATELET VOLUME 9.4 fl (7.4-10.4); MONOCYTE # 0.7 10^3/ul (0.3-0.9); NEUTROPHIL # 3.1 10^3/ul (1.6-7.5); NEUTROPHILS % 66.9 % (39.0-77.0); PLATELET COUNT 252 10^3/UL (140-415); RED CELL DISTRIBUTION WIDTH 16.6 % (11.5-14.5); WHITE BLOOD COUNT 4.7 10^3/ul (4.8-10.8)
[2016-11-26 06:47] LABS: POTASSIUM 3.8 mmol/L (3.5-5.1)
[2016-11-26 06:50] LABS: CREATININE 0.28 mg/dl (0.61-1.24)
[2016-11-26] MEDS: ASPIRIN 81 MG TAB GTB SCH (09:00)
[2016-11-26] MEDS: SODIUM CHLORIDE 1 GM TAB GTB SCH ×3 (10:16→20:56)
[2016-11-26] MEDS: FERROUS SULFATE 60 MG/ML 5ML CUP GTB SCH (10:16)
[2016-11-26] MEDS: FAMOTIDINE 20 MG TAB GTB SCH (10:16)
[2016-11-26] MEDS: MULTIVITAMINS THERAPEUTIC TAB PO SCH (10:16)
[2016-11-26] MEDS: POTASSIUM CHLORIDE 20 MEQ POWDER FOR ORAL SOLN GTB SCH (10:16)
[2016-11-26] MEDS: BENAZEPRIL 10 MG TAB GTB SCH (10:17)
[2016-11-26] MEDS: METOPROLOL 25 MG TAB GTB SCH ×2 (10:18→20:56)
[2016-11-26] MEDS: INSULIN DETEMIR [LEVEMIR] 3ML CART SC SCH ×2 (10:20→20:58)
--- NOTE | 2016-11-26 11:15 | CONS ---
Date/Time of Note Date/Time of Note DATE: 11/26/16 TIME: 11:12 Assessment/Plan Assessment/Plan Additional Assessment/Plan 1. Severe hyponatremia, acute on chronic hyponatremia secondary to syndrome of inappropriate antidiuretic hormone with some prerenal azotemia. 2. History of possible chronic hyponatremia secondary to syndrome of inappropriate antidiuretic hormone. The patient has been on demeclocycline 300 mg p.o. b.i.d., maximum dose, unresponsive. Tolvaptan was not covered in the senior care facility. 3. History of hypertension. 4. History of diabetes mellitus. 5. Chronic encephalopathy. 6. 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 7. History of G-tube in place. plan: demeclocycline stopped, on soidum chloride tablet 1 gram PO TID , Tolvaptan will not be covered in SNF as per clerk manager, Na slightly dropped to 130 today Na improved with tolvaptan, now will monitor Na and use tolvaptan as needed due to mildly elevated LFTs on labs today - no plan for tolvaptan today AM labs ordered for today will follow up Consultation Date/Type/Reason Admit Date/Time Initial Consult Date 11/18/16 Type of Consultation: NEPHROLOGY Reason for Consultation acute severe hyponatremia Referring Provider: JENELLE COLBY MD 24 HR Interval Summary Free Text/Dictation Na dropped to 130, BP stable, pt has toe open wound, podiatry has been consulted on the case Exam/Review of Systems Vital Signs Vitals Vital Signs Date Time Temp Pulse Resp B/P Pulse Ox O2 Delivery O2 Flow Rate FiO2 11/26/16 08:27 56 11/26/16 07:49 30 11/26/16 07:47 97.6 18 138/69 99 Intake and Output 11/25/16 11/25/16 11/26/16 15:00 23:00 07:00 Intake Total 720 ml 915 ml 720 ml Output Total 500 ml 600 ml 500 ml Balance 220 ml 315 ml 220 ml Exam GENERAL: no acute distress, non verbal, non communicative LUNGS: Bilateral coarse breath sounds heard. No wheezing. HEART: S1, S2, tachycardia, no murmur. ABDOMEN: Soft. G-tube site is clear. No leaking, no discharge. Erythema around the G-tube. EXTREMITIES: 1+ pitting edema in the right ankle. SKIN: The patient has some pressure ulcers on admissions including the right heel and buttocks. small open wound on toe, s/p podiatry evaluation Results Result Diagram: 11/26/16 0619 11/26/16 0619 Results 24 hrs Laboratory Tests Test 11/25/16 11:53 11/25/16 17:45 11/25/16 21:00 11/26/16 01:31 Bedside Glucose 92 96 86 98 Test 11/26/16 05:53 11/26/16 06:19 Bedside Glucose 85 White Blood Count 4.7 #L Red Blood Count 3.10 L Hemoglobin 9.1 L Hematocrit 27.7 L Mean Corpuscular Volume 89.4 Mean Corpuscular Hemoglobin 29.4 Mean Corpuscular Hemoglobin Concent 32.9 Red Cell Distribution Width 16.6 H Platelet Count 252 Mean Platelet Volume 9.4 Neutrophils % 66.9 Lymphocytes % 13.8 L Monocytes % 14.0 H Eosinophils % 3.6 Basophils % 1.1 Nucleated Red Blood Cells % 0.0 Neutrophils # 3.1 Lymphocytes # 0.7 L Monocytes # 0.7 Eosinophils # 0.2 Basophils # 0.1 Nucleated Red Blood Cells # 0.0 Sodium Level 130 L Potassium Level 3.8 Chloride Level 98 Carbon Dioxide Level 27 Anion Gap 9 Blood Urea Nitrogen 17 Creatinine 0.28 L Glucose Level 85 Calcium Level 8.0 L Medications Medications Current Medications Acetaminophen (Tylenol Tab) 650 mg Q6H PRN GTB PAIN AND OR ELEVATED TEMP; Start 11/18/16 at 23:30 Aspirin (Aspirin) 81 mg DAILY GTB Last administered on 11/26/16 09:00; Admin Dose 81 MG; Start 11/19/16 at 09:00 Atorvastatin Calcium (Lipitor) 40 mg QHS GTB Last administered on 11/25/16 20: 54; Admin Dose 40 MG; Start 11/19/16 at 21:00 Benazepril HCl (Lotensin) 10 mg DAILY GTB Last administered on 11/26/16 10:17 ; Admin Dose 10 MG; Start 11/19/16 at 09:00 Docusate Sodium (Colace Liquid Cup) 200 mg DAILY PRN GTB CONSTIPATION; Start at 23:30 Famotidine (Pepcid) 20 mg DAILY GTB Last administered on 11/26/16 10:16; Admin Dose 20 MG; Start 11/19/16 at 09:00 Ferrous Sulfate (Feosol Liquid Cup) 330 mg DAILY GTB Last administered on 10:16; Admin Dose 330 MG; Start 11/19/16 at 09:00 Hydralazine HCl (Apresoline) 25 mg Q6H PRN GTB ELEVATED BLOOD PRESSURE; Start 11/18/16 at 23:30 Metoprolol Tartrate (Lopressor) 25 mg BID GTB Last administered on 11/26/16 10 :18; Admin Dose 25 MG; Start 11/18/16 at 23:30 Mineral Oil (Fleet Mineral Oil Enema) 133 ml DAILY PRN [place] CONSTIPATION; Start 11/18/16 at 23:30 Multivitamins Therapeutic (Theragran) 1 tab DAILY PO Last administered on 10:16; Admin Dose 1 TAB; Start 11/19/16 at 09:00 Ondansetron HCl (Zofran Tab) 4 mg Q4H PRN GTB NAUSEA AND/OR VOMITING; Start at 23:30 Sodium Chloride (Nacl) 1 gm TID GTB Last administered on 11/26/16 10:16; Admin Dose 1 GM; Start 11/19/16 at 09:00 Tamsulosin HCl (Flomax) 0.4 mg HS PO Last administered on 11/23/16 20:14; Admin Dose 0.4 MG; Start 11/19/16 at 21:00 Glucagon (Glucagen) 1 mg DAILY PRN IM LOW GLUCOSE; Start 11/18/16 at 23:30 Miscellaneous Information 1 ea NOTE XX ; Start 11/18/16 at 23:45 Glucose (Glutose) 15 gm Q15M PRN PO DECREASED GLUCOSE; Start 11/18/16 at 23:45 Glucose (Glutose) 22.5 gm Q15M PRN PO DECREASED GLUCOSE; Start 11/18/16 at 23: 45 Dextrose (D50w Syringe) 25 ml Q15M PRN IV DECREASED GLUCOSE Last administered on 11/25/16 06:42; Admin Dose 25 ML; Start 11/18/16 at 23:45 Dextrose (D50w Syringe) 50 ml Q15M PRN IV DECREASED GLUCOSE; Start 11/18/16 at 23:45 Glucagon (Glucagen) 1 mg Q15M PRN IM DECREASED GLUCOSE; Start 11/18/16 at 23:45 Glucose (Glutose) 15 gm Q15M PRN BUCCAL DECREASED GLUCOSE; Start 11/18/16 at 23 :45 Diagnostic Test (Pha) (Accu-Chek) 1 ea Q6 XX Last administered on 11/25/16 18: 00; Admin Dose 1 EA; Start 11/20/16 at 00:00 Insulin Aspart (Novolog Insulin Pen) NOVOLOG *MILD* ALGORITHM Q6 SC Last administered on 11/24/16 12:39; Admin Dose 1 UNIT; Start 11/20/16 at 00:00 Insulin Detemir (Levemir) 10 unit BID SC Last administered on 11/26/16 10:20; Admin Dose 10 UNIT; Start 11/20/16 at 21:00 Potassium Chloride (Potassium Chloride Pwd/Soln) 40 meq DAILY GTB Last administered on 11/26/16 10:16; Admin Dose 40 MEQ; Start 11/23/16 at 09:00 Cephalexin (Keflex Susp (Ped)) 500 mg Q6 GTB Last administered on 11/26/16 05: 51; Admin Dose 500 MG; Start 11/26/16 at 01:30 LISSA PARK MD Nov 26, 2016 11:15
--- NOTE | 2016-11-26 11:15 | CONS ---
Date/Time of Note Date/Time of Note DATE: 11/26/16 TIME: 11:13 Consult Date/Type/Reason Admit Date/Time Nov 20, 2016 at 15:20 Initial Consult Date 11/19/16 Type of Consultation: Pulmonary Ordering Provider: JENELLE COLBY MD Subjective Patient withdraws to painful stimuli otherwise unresponsive Objective Vital Signs Date Time Temp Pulse Resp B/P Pulse Ox O2 Delivery O2 Flow Rate FiO2 11/26/16 08:27 56 11/26/16 07:49 30 11/26/16 07:47 97.6 18 138/69 99 Intake and Output 11/25/16 11/25/16 11/26/16 15:00 23:00 07:00 Intake Total 720 ml 915 ml 720 ml Output Total 500 ml 600 ml 500 ml Balance 220 ml 315 ml 220 ml Exam PHYSICAL EXAMINATION GENERAL: Chronically ill-appearing gentleman on mechanical ventilation VITAL SIGNS: see below. HEENT: Pupils equal, round, and reactive to light. Tracheostomy site clean and intact. CARDIAC: S1, S2, no added sounds or murmurs CHEST: Diminished air entry bilaterally. ABDOMEN: Mildly distended. Bowel sounds present no guarding or rebound EXTREMITIES: No cyanosis, clubbing edema +1 NEUROLOGIC: Generalized weakness Results/Medications Result Diagram: 11/26/16 0619 11/26/16 0619 Results 24 hrs Laboratory Tests Test 11/25/16 11:53 11/25/16 17:45 11/25/16 21:00 11/26/16 01:31 Bedside Glucose 92 96 86 98 Test 11/26/16 05:53 11/26/16 06:19 Bedside Glucose 85 White Blood Count 4.7 #L Red Blood Count 3.10 L Hemoglobin 9.1 L Hematocrit 27.7 L Mean Corpuscular Volume 89.4 Mean Corpuscular Hemoglobin 29.4 Mean Corpuscular Hemoglobin Concent 32.9 Red Cell Distribution Width 16.6 H Platelet Count 252 Mean Platelet Volume 9.4 Neutrophils % 66.9 Lymphocytes % 13.8 L Monocytes % 14.0 H Eosinophils % 3.6 Basophils % 1.1 Nucleated Red Blood Cells % 0.0 Neutrophils # 3.1 Lymphocytes # 0.7 L Monocytes # 0.7 Eosinophils # 0.2 Basophils # 0.1 Nucleated Red Blood Cells # 0.0 Sodium Level 130 L Potassium Level 3.8 Chloride Level 98 Carbon Dioxide Level 27 Anion Gap 9 Blood Urea Nitrogen 17 Creatinine 0.28 L Glucose Level 85 Calcium Level 8.0 L Medications Current Medications Acetaminophen (Tylenol Tab) 650 mg Q6H PRN GTB PAIN AND OR ELEVATED TEMP; Start 11/18/16 at 23:30 Aspirin (Aspirin) 81 mg DAILY GTB Last administered on 11/26/16 09:00; Admin Dose 81 MG; Start 11/19/16 at 09:00 Atorvastatin Calcium (Lipitor) 40 mg QHS GTB Last administered on 11/25/16 20: 54; Admin Dose 40 MG; Start 11/19/16 at 21:00 Benazepril HCl (Lotensin) 10 mg DAILY GTB Last administered on 11/26/16 10:17 ; Admin Dose 10 MG; Start 11/19/16 at 09:00 Docusate Sodium (Colace Liquid Cup) 200 mg DAILY PRN GTB CONSTIPATION; Start at 23:30 Famotidine (Pepcid) 20 mg DAILY GTB Last administered on 11/26/16 10:16; Admin Dose 20 MG; Start 11/19/16 at 09:00 Ferrous Sulfate (Feosol Liquid Cup) 330 mg DAILY GTB Last administered on 10:16; Admin Dose 330 MG; Start 11/19/16 at 09:00 Hydralazine HCl (Apresoline) 25 mg Q6H PRN GTB ELEVATED BLOOD PRESSURE; Start 11/18/16 at 23:30 Metoprolol Tartrate (Lopressor) 25 mg BID GTB Last administered on 11/26/16 10 :18; Admin Dose 25 MG; Start 11/18/16 at 23:30 Mineral Oil (Fleet Mineral Oil Enema) 133 ml DAILY PRN [place] CONSTIPATION; Start 11/18/16 at 23:30 Multivitamins Therapeutic (Theragran) 1 tab DAILY PO Last administered on 10:16; Admin Dose 1 TAB; Start 11/19/16 at 09:00 Ondansetron HCl (Zofran Tab) 4 mg Q4H PRN GTB NAUSEA AND/OR VOMITING; Start at 23:30 Sodium Chloride (Nacl) 1 gm TID GTB Last administered on 11/26/16 10:16; Admin Dose 1 GM; Start 11/19/16 at 09:00 Tamsulosin HCl (Flomax) 0.4 mg HS PO Last administered on 11/23/16 20:14; Admin Dose 0.4 MG; Start 11/19/16 at 21:00 Glucagon (Glucagen) 1 mg DAILY PRN IM LOW GLUCOSE; Start 11/18/16 at 23:30 Miscellaneous Information 1 ea NOTE XX ; Start 11/18/16 at 23:45 Glucose (Glutose) 15 gm Q15M PRN PO DECREASED GLUCOSE; Start 11/18/16 at 23:45 Glucose (Glutose) 22.5 gm Q15M PRN PO DECREASED GLUCOSE; Start 11/18/16 at 23: 45 Dextrose (D50w Syringe) 25 ml Q15M PRN IV DECREASED GLUCOSE Last administered on 11/25/16 06:42; Admin Dose 25 ML; Start 11/18/16 at 23:45 Dextrose (D50w Syringe) 50 ml Q15M PRN IV DECREASED GLUCOSE; Start 11/18/16 at 23:45 Glucagon (Glucagen) 1 mg Q15M PRN IM DECREASED GLUCOSE; Start 11/18/16 at 23:45 Glucose (Glutose) 15 gm Q15M PRN BUCCAL DECREASED GLUCOSE; Start 11/18/16 at 23 :45 Diagnostic Test (Pha) (Accu-Chek) 1 ea Q6 XX Last administered on 11/25/16 18: 00; Admin Dose 1 EA; Start 11/20/16 at 00:00 Insulin Aspart (Novolog Insulin Pen) NOVOLOG *MILD* ALGORITHM Q6 SC Last administered on 11/24/16 12:39; Admin Dose 1 UNIT; Start 11/20/16 at 00:00 Insulin Detemir (Levemir) 10 unit BID SC Last administered on 11/26/16 10:20; Admin Dose 10 UNIT; Start 11/20/16 at 21:00 Potassium Chloride (Potassium Chloride Pwd/Soln) 40 meq DAILY GTB Last administered on 11/26/16 10:16; Admin Dose 40 MEQ; Start 11/23/16 at 09:00 Cephalexin (Keflex Susp (Ped)) 500 mg Q6 GTB Last administered on 11/26/16 05: 51; Admin Dose 500 MG; Start 11/26/16 at 01:30 Assessment/Plan Chief Complaint/Hosp Course Assessment 1. Vent dependent respiratory failure 2. 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 Dysphagia with G-tube 4. Anemia of chronic disease Plan 1. Agree with palliative care consult 2. Continue mechanical ventilation 3. Continue DVT and GI prophylaxis 4. Tube feeding as tolerated Disposition Consider transfer back to subacute. Problems: JOSE MONTES DE OCA MD, [facility] Nov 26, 2016 11:15
--- NOTE | 2016-11-26 11:22 | PN ---
DATE: 11/26/2016 PALLIATIVE CARE I have spoken to case management today, and try and set up a meeting today with family at 1400 hours . Followup note will be done at that time. Dictated By: MARY VILLALPANDO MD, LP/PIPER Conf#: [id number] DID#: [id number]
--- NOTE | 2016-11-26 19:26 | PN ---
Date/Time of Note Date/Time of Note DATE: 11/26/16 TIME: 19:25 Assessment/Plan VTE Prophylaxis VTE Prophylaxis Intervention: other Lines/Catheters IV [facility]ter Type [facility]from [facility] Urinary Cath still in place: Yes Assessment/Plan Assessment/Plan 1. Acute on chronic hyponatremia secondary to syndrome of inappropriate antidiuretic hormone. Dr. Tovar is following in nephrology consultation. Patient is currently on sodium tablets supplement, continue to monitor sodium. 2. Ventilator-dependent respiratory failure. Continue ventilatory support. Dr. Clarke is following the patient in pulmonology consultation. Continue bronchodilators. 3. Brainstem glioma, status post ventriculoperitoneal shunt placement. Dr. Anand, palliative care consult is appreciated. 4. Status post cerebrovascular accident. 5. Chronic encephalopathy. 6. Seizure disorder. Continue Keppra. 7. Dysphagia with G-tube. 8. Transaminitis. Dr. Mas is following in gastroenterology consultation. 9. Diabetes mellitus type 2. Continue NovoLog and Lantus. 10. Hypertension. Continue benazepril 11. Hyperlipidemia, continue Lipitor. 12. Bedridden status with functional quadriplegia. Continue to assist patient with activities of daily living. 13. Multiple pressure sores present on admission. Continue current wound care. 14. R great big toe ulcer, Dr. Jaffe is asked to see patient in podiatry consultation DNR status. Continue sequential compression device for deep venous thrombosis prophylaxis. Prevacid for peptic ulcer disease prophylaxis. Further recommendations based on clinical course. Plan of care discussed with Dr. Desir. Subjective 24 Hr Interval Summary Constitutional: requiring IVF, requiring O2 Exam/Review of Systems Vital Signs Vitals Vital Signs Date Time Temp Pulse Resp B/P Pulse Ox O2 Delivery O2 Flow Rate FiO2 11/26/16 17:10 67 13 98 30 11/26/16 14:57 98.4 152/78 Intake and Output 11/25/16 11/25/16 11/26/16 15:00 23:00 07:00 Intake Total 720 ml 915 ml 720 ml Output Total 500 ml 600 ml 500 ml Balance 220 ml 315 ml 220 ml Exam Constitutional: non-verbal Genitourinary - Male: other (fc- cloudy urine) Results Result Diagram: 11/26/1619 11/26/16618 Results 24 hrs Laboratory Tests Test 11/25/16 21:00 11/26/16 01:31 11/26/16 05:53 11/26/16 06:19 Bedside Glucose 86 98 85 White Blood Count 4.7 #L Red Blood Count 3.10 L Hemoglobin 9.1 L Hematocrit 27.7 L Mean Corpuscular Volume 89.4 Mean Corpuscular Hemoglobin 29.4 Mean Corpuscular Hemoglobin Concent 32.9 Red Cell Distribution Width 16.6 H Platelet Count 252 Mean Platelet Volume 9.4 Neutrophils % 66.9 Lymphocytes % 13.8 L Monocytes % 14.0 H Eosinophils % 3.6 Basophils % 1.1 Nucleated Red Blood Cells % 0.0 Neutrophils # 3.1 Lymphocytes # 0.7 L Monocytes # 0.7 Eosinophils # 0.2 Basophils # 0.1 Nucleated Red Blood Cells # 0.0 Sodium Level 130 L Potassium Level 3.8 Chloride Level 98 Carbon Dioxide Level 27 Anion Gap 9 Blood Urea Nitrogen 17 Creatinine 0.28 L Glucose Level 85 Calcium Level 8.0 L Test 11/26/16 12:30 11/26/16 17:06 Bedside Glucose 111 115 Medications Medications Current Medications Acetaminophen (Tylenol Tab) 650 mg Q6H PRN GTB PAIN AND OR ELEVATED TEMP; Start 11/18/16 at 23:30 Aspirin (Aspirin) 81 mg DAILY GTB Last administered on 11/26/16 09:00; Admin Dose 81 MG; Start 11/19/16 at 09:00 Atorvastatin Calcium (Lipitor) 40 mg QHS GTB Last administered on 11/25/16 20: 54; Admin Dose 40 MG; Start 11/19/16 at 21:00 Benazepril HCl (Lotensin) 10 mg DAILY GTB Last administered on 11/26/16 10:17 ; Admin Dose 10 MG; Start 11/19/16 at 09:00 Docusate Sodium (Colace Liquid Cup) 200 mg DAILY PRN GTB CONSTIPATION; Start at 23:30 Famotidine (Pepcid) 20 mg DAILY GTB Last administered on 11/26/16 10:16; Admin Dose 20 MG; Start 11/19/16 at 09:00 Ferrous Sulfate (Feosol Liquid Cup) 330 mg DAILY GTB Last administered on 10:16; Admin Dose 330 MG; Start 11/19/16 at 09:00 Hydralazine HCl (Apresoline) 25 mg Q6H PRN GTB ELEVATED BLOOD PRESSURE; Start 11/18/16 at 23:30 Metoprolol Tartrate (Lopressor) 25 mg BID GTB Last administered on 11/26/16 10 :18; Admin Dose 25 MG; Start 11/18/16 at 23:30 Mineral Oil (Fleet Mineral Oil Enema) 133 ml DAILY PRN [place] CONSTIPATION; Start 11/18/16 at 23:30 Multivitamins Therapeutic (Theragran) 1 tab DAILY PO Last administered on 10:16; Admin Dose 1 TAB; Start 11/19/16 at 09:00 Ondansetron HCl (Zofran Tab) 4 mg Q4H PRN GTB NAUSEA AND/OR VOMITING; Start at 23:30 Sodium Chloride (Nacl) 1 gm TID GTB Last administered on 11/26/16 12:36; Admin Dose 1 GM; Start 11/19/16 at 09:00 Tamsulosin HCl (Flomax) 0.4 mg HS PO Last administered on 11/23/16 20:14; Admin Dose 0.4 MG; Start 11/19/16 at 21:00 Glucagon (Glucagen) 1 mg DAILY PRN IM LOW GLUCOSE; Start 11/18/16 at 23:30 Miscellaneous Information 1 ea NOTE XX ; Start 11/18/16 at 23:45 Glucose (Glutose) 15 gm Q15M PRN PO DECREASED GLUCOSE; Start 11/18/16 at 23:45 Glucose (Glutose) 22.5 gm Q15M PRN PO DECREASED GLUCOSE; Start 11/18/16 at 23: 45 Dextrose (D50w Syringe) 25 ml Q15M PRN IV DECREASED GLUCOSE Last administered on 11/25/16 06:42; Admin Dose 25 ML; Start 11/18/16 at 23:45 Dextrose (D50w Syringe) 50 ml Q15M PRN IV DECREASED GLUCOSE; Start 11/18/16 at 23:45 Glucagon (Glucagen) 1 mg Q15M PRN IM DECREASED GLUCOSE; Start 11/18/16 at 23:45 Glucose (Glutose) 15 gm Q15M PRN BUCC[place] DECREASED GLUCOSE; Start 11/18/16 at 23 :45 Diagnostic Test (Pha) (Accu-Chek) 1 ea Q6 XX Last administered on 11/25/16 18: 00; Admin Dose 1 EA; Start 11/20/16 at 00:00 Insulin Aspart (Novolog Insulin Pen) NOVOLOG *MILD* ALGORITHM Q6 SC Last administered on 11/24/16 12:39; Admin Dose 1 UNIT; Start 11/20/16 at 00:00 Insulin Detemir (Levemir) 10 unit BID SC Last administered on 11/26/16 10:20; Admin Dose 10 UNIT; Start 11/20/16 at 21:00 Potassium Chloride (Potassium Chloride Pwd/Soln) 40 meq DAILY GTB Last administered on 11/26/16 10:16; Admin Dose 40 MEQ; Start 11/23/16 at 09:00 Cephalexin (Keflex Susp (Ped)) 500 mg Q6 GTB Last administered on 11/26/16 17: 24; Admin Dose 500 MG; Start 11/26/16 at 01:30 KENYATTA CAPPS Nov 26, 2016 19:26
[2016-11-26] MEDS: TAMSULOSIN (SR) 0.4 MG CAP PO SCH (20:56)
[2016-11-26] MEDS: ATORVASTATIN 40 MG TAB GTB SCH (20:56)
[2016-11-27] VITALS (25 sets, daily range): BP systolic 121–163; BP diastolic 68–81; PULSE 61–95; RESP 12–20
[2016-11-27] MEDS: CEPHALEXIN (50 MG/ML PO SYG) GTB SCH ×4 (00:13→18:06)
[2016-11-27] MEDS: ACCU-CHEK XX SCH ×4 (00:15→17:59)
[2016-11-27 01:15] LABS: ADD UMIC YES; URINE BILIRUBIN (Dip) NEGATIVE (NEGATIVE); URINE BLOOD (Dip) 3+ (NEGATIVE); URINE COLOR LT. YELLOW (YELLOW); URINE GLUCOSE (Dip) NEGATIVE (NEGATIVE); URINE KETONES (Dip) NEGATIVE (NEGATIVE); URINE LEUKOCYTE ESTERASE (Dip) 1+ (NEGATIVE); URINE NITRITE (Dip) POSITIVE (NEGATIVE); URINE TOTAL PROTEIN (Dip) TRACE (NEGATIVE); URINE UROBILINOGEN (Dip) 1.0 E.U./dL (0.1-1.0)
[2016-11-27 01:21] LABS: URINE RBCS >200 /HPF (0)
[2016-11-27 01:22] LABS: BACTERIA,URINE MANY; MUCUS,URINE OCCASIONAL; SQUAMOUS EPITHELIAL CELL,UR FEW
[2016-11-27] MEDS: INSULIN ASPART [NOVOLOG] 3 ML PEN SC SCH ×4 (05:51→18:06)
[2016-11-27 07:25] LABS: ADD SCAN DIFF NO
[2016-11-27 07:32] LABS: BASOPHIL # 0.1 10^3/ul (0.0-0.1); BASOPHILS % 1.2 % (0.0-2.0); EOSINOPHILS # 0.2 10^3/ul (0.0-0.5); HEMATOCRIT 28.9 % (42.0-52.0); HEMOGLOBIN 9.7 g/dl (14.0-18.0); LYMPHOCYTES # 0.8 10^3/ul (0.8-2.9); LYMPHOCYTES % 10.7 % (15.0-51.0); MEAN CORPUSCULAR HEMOGLOBIN 29.7 pg (29.0-33.0); MEAN CORPUSCULAR HGB CONC 33.6 g/dl (32.0-37.0); MEAN CORPUSCULAR VOLUME 88.4 fl (82.0-101.0); MEAN PLATELET VOLUME 9.3 fl (7.4-10.4); MONOCYTE # 0.7 10^3/ul (0.3-0.9); MONOCYTES % 9.3 % (0.0-11.0); NEUTROPHIL # 5.7 10^3/ul (1.6-7.5); NEUTROPHILS % 76.1 % (39.0-77.0); PLATELET COUNT 259 10^3/UL (140-415); RED BLOOD COUNT 3.27 10^6/ul (4.70-6.10); RED CELL DISTRIBUTION WIDTH 16.3 % (11.5-14.5); WHITE BLOOD COUNT 7.5 10^3/ul (4.8-10.8)
[2016-11-27 07:52] LABS: ALBUMIN 2.7 g/dl (3.3-4.9); POTASSIUM 4.1 mmol/L (3.5-5.1)
[2016-11-27 07:54] LABS: BILIRUBIN,INDIRECT 0.3 mg/dl (0-1.1); BILIRUBIN,TOTAL 0.3 mg/dl (0.2-1.3); CREATININE 0.27 mg/dl (0.61-1.24)
[2016-11-27 07:55] LABS: ALBUMIN/GLOBULIN RATIO 0.9; CALCIUM 7.8 mg/dl (8.4-10.2); TOTAL PROTEIN 5.7 g/dl (6.1-8.1)
[2016-11-27] MEDS: ASPIRIN 81 MG TAB GTB SCH (09:57)
[2016-11-27] MEDS: FERROUS SULFATE 60 MG/ML 5ML CUP GTB SCH (09:57)
[2016-11-27] MEDS: BENAZEPRIL 10 MG TAB GTB SCH (09:58)
[2016-11-27] MEDS: MULTIVITAMINS THERAPEUTIC TAB PO SCH (09:58)
[2016-11-27] MEDS: FAMOTIDINE 20 MG TAB GTB SCH (09:58)
[2016-11-27] MEDS: POTASSIUM CHLORIDE 20 MEQ POWDER FOR ORAL SOLN GTB SCH (09:58)
[2016-11-27] MEDS: METOPROLOL 25 MG TAB GTB SCH ×2 (09:58→20:19)
[2016-11-27] MEDS: SODIUM CHLORIDE 1 GM TAB GTB SCH ×3 (09:58→20:08)
[2016-11-27] MEDS: INSULIN DETEMIR [LEVEMIR] 3ML CART SC SCH ×2 (10:00→20:14)
[2016-11-27] MEDS ORDERED: TOLVAPTAN 15 MG TABLET PO ONE (12:30)
--- NOTE | 2016-11-27 13:58 | CONS ---
Date/Time of Note Date/Time of Note DATE: 11/27/16 TIME: 13:57 Consult Date/Type/Reason Admit Date/Time Nov 20, 2016 at 15:20 Initial Consult Date 11/19/16 Type of Consultation: pulmonary Ordering Provider: JENELLE COLBY MD Subjective Patient remained stable no new events Discussed with palliative care regarding goals of care that were addressed with family Objective Vital Signs Date Time Temp Pulse Resp B/P Pulse Ox O2 Delivery O2 Flow Rate FiO2 11/27/16 12:18 62 11/27/16 12:00 98.2 20 163/81 100 11/27/16 11:00 30 Intake and Output 11/26/16 11/26/16 11/27/16 15:00 23:00 07:00 Intake Total 986 ml 555 ml Output Total 450 ml 600 ml Balance 536 ml -45 ml Exam PHYSICAL EXAMINATION GENERAL: Chronically ill-appearing gentleman on mechanical ventilation VITAL SIGNS: see below. HEENT: Pupils equal, round, and reactive to light. Tracheostomy site clean and intact. CARDIAC: S1, S2, no added sounds or murmurs CHEST: Diminished air entry bilaterally. ABDOMEN: Mildly distended. Bowel sounds present no guarding or rebound EXTREMITIES: No cyanosis, clubbing edema +1 NEUROLOGIC: Generalized weakness Results/Medications Result Diagram: 11/27/16 0609 11/27/16 0609 Results 24 hrs Laboratory Tests Test 11/26/16 17:06 11/27/16 00:13 11/27/16 01:00 11/27/16 05:51 Bedside Glucose 115 130 100 Urine Color LT. YELLOW Urine Clarity CLOUDY H Urine pH 8.0 Urine Specific [place] 1.020 Urine Ketones NEGATIVE Urine Nitrite POSITIVE H Urine Bilirubin NEGATIVE Urine Urobilinogen 1.0 E.U./dL Urine Leukocyte Esterase 1+ H Urine Microscopic RBC >200 Urine Microscopic WBC 10-25 Urine Squamous Epithelial Cells FEW Urine Bacteria MANY Urine Mucus OCCASIONAL Urine Hemoglobin 3+ H Urine Glucose NEGATIVE Urine Total Protein TRACE Test 11/27/16 06:09 11/27/16 09:57 11/27/16 11:48 White Blood Count 7.5 # Red Blood Count 3.27 L Hemoglobin 9.7 L Hematocrit 28.9 L Mean Corpuscular Volume 88.4 Mean Corpuscular Hemoglobin 29.7 Mean Corpuscular Hemoglobin Concent 33.6 Red Cell Distribution Width 16.3 H Platelet Count 259 Mean Platelet Volume 9.3 Neutrophils % 76.1 Lymphocytes % 10.7 L Monocytes % 9.3 Eosinophils % 2.0 Basophils % 1.2 Nucleated Red Blood Cells % 0.0 Neutrophils # 5.7 Lymphocytes # 0.8 Monocytes # 0.7 Eosinophils # 0.2 Basophils # 0.1 Nucleated Red Blood Cells # 0.0 Sodium Level 126 L Potassium Level 4.1 Chloride Level 94 L Carbon Dioxide Level 27 Anion Gap 9 Blood Urea Nitrogen 13 Creatinine 0.27 L Glucose Level 95 Calcium Level 7.8 L Total Bilirubin 0.3 Direct Bilirubin 0.00 Indirect Bilirubin 0.3 Aspartate Amino Transf (AST/SGOT) 61 H Alanine Aminotransferase (ALT/SGPT) 62 Alkaline Phosphatase 165 H Total Protein 5.7 L Albumin 2.7 L Globulin 3.00 Albumin/Globulin Ratio 0.90 Bedside Glucose 126 145 Medications Current Medications Acetaminophen (Tylenol Tab) 650 mg Q6H PRN GTB PAIN AND OR ELEVATED TEMP; Start 11/18/16 at 23:30 Aspirin (Aspirin) 81 mg DAILY GTB Last administered on 11/27/16 09:57; Admin Dose 81 MG; Start 11/19/16 at 09:00 Atorvastatin Calcium (Lipitor) 40 mg QHS GTB Last administered on 11/26/16 20: 56; Admin Dose 40 MG; Start 11/19/16 at 21:00 Benazepril HCl (Lotensin) 10 mg DAILY GTB Last administered on 11/27/16 09:58 ; Admin Dose 10 MG; Start 11/19/16 at 09:00 Docusate Sodium (Colace Liquid Cup) 200 mg DAILY PRN GTB CONSTIPATION; Start at 23:30 Famotidine (Pepcid) 20 mg DAILY GTB Last administered on 11/27/16 09:58; Admin Dose 20 MG; Start 11/19/16 at 09:00 Ferrous Sulfate (Feosol Liquid Cup) 330 mg DAILY GTB Last administered on 09:57; Admin Dose 330 MG; Start 11/19/16 at 09:00 Hydralazine HCl (Apresoline) 25 mg Q6H PRN GTB ELEVATED BLOOD PRESSURE Last administered on 11/27/16 12:45; Admin Dose 25 MG; Start 11/18/16 at 23:30 Metoprolol Tartrate (Lopressor) 25 mg BID GTB Last administered on 11/27/16 09 :58; Admin Dose 25 MG; Start 11/18/16 at 23:30 Mineral Oil (Fleet Mineral Oil Enema) [address] CONSTIPATION; Start 11/18/16 at 23:30 Multivitamins Therapeutic (Theragran) 1 tab DAILY PO Last administered on 09:58; Admin Dose 1 TAB; Start 11/19/16 at 09:00 Ondansetron HCl (Zofran Tab) 4 mg Q4H PRN GTB NAUSEA AND/OR VOMITING; Start at 23:30 Sodium Chloride (Nacl) 1 gm TID GTB Last administered on 11/27/16 12:36; Admin Dose 1 GM; Start 11/19/16 at 09:00 Tamsulosin HCl (Flomax) 0.4 mg HS PO Last administered on 11/26/16 20:56; Admin Dose 0.4 MG; Start 11/19/16 at 21:00 Glucagon (Glucagen) 1 mg DAILY PRN IM LOW GLUCOSE; Start 11/18/16 at 23:30 Miscellaneous Information 1 ea NOTE XX ; Start 11/18/16 at 23:45 Glucose (Glutose) 15 gm Q15M PRN PO DECREASED GLUCOSE; Start 11/18/16 at 23:45 Glucose (Glutose) 22.5 gm Q15M PRN PO DECREASED GLUCOSE; Start 11/18/16 at 23: 45 Dextrose (D50w Syringe) 25 ml Q15M PRN IV DECREASED GLUCOSE Last administered on 11/25/16 06:42; Admin Dose 25 ML; Start 11/18/16 at 23:45 Dextrose (D50w Syringe) 50 ml Q15M PRN IV DECREASED GLUCOSE; Start 11/18/16 at 23:45 Glucagon (Glucagen) 1 mg Q15M PRN IM DECREASED GLUCOSE; Start 11/18/16 at 23:45 Glucose (Glutose) 15 gm Q15M PRN BUCCAL DECREASED GLUCOSE; Start 11/18/16 at 23 :45 Diagnostic Test (Pha) (Accu-Chek) 1 ea Q6 XX Last administered on 11/27/16 11: 50; Admin Dose 1 EA; Start 11/20/16 at 00:00 Insulin Aspart (Novolog Insulin Pen) NOVOLOG *MILD* ALGORITHM Q6 SC Last administered on 11/27/16 11:54; Admin Dose 1 UNIT; Start 11/20/16 at 00:00 Insulin Detemir (Levemir) 10 unit BID SC Last administered on 11/27/16 10:00; Admin Dose 10 UNIT; Start 11/20/16 at 21:00 Potassium Chloride (Potassium Chloride Pwd/Soln) 40 meq DAILY GTB Last administered on 11/27/16 09:58; Admin Dose 40 MEQ; Start 11/23/16 at 09:00 Cephalexin (Keflex Susp (Ped)) 500 mg Q6 GTB Last administered on 11/27/16 11: 47; Admin Dose 500 MG; Start 11/26/16 at 01:30 Assessment/Plan Chief Complaint/Hosp Course Assessment 1. Vent dependent respiratory failure 2. 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 Dysphagia with G-tube 4. Anemia of chronic disease 5. Hyponatremia likely SIADH Plan 1. Agree with palliative care consult 2. Continue mechanical ventilation 3. Continue DVT and GI prophylaxis 4. Tube feeding as tolerated 5. Consider holding free water flushes consider fluid restriction, renal recommendations Disposition Transfer back to subacute facility once electrolytes improved Problems: JO[facility] MONTES [facility], [facility] Nov 27, 2016 13:58
--- NOTE | 2016-11-27 15:42 | CONS ---
Date/Time of Note Date/Time of Note DATE: 11/27/16 TIME: 15:39 Assessment/Plan Assessment/Plan Additional Assessment/Plan 1. Severe hyponatremia, acute on chronic hyponatremia secondary to syndrome of inappropriate antidiuretic hormone with some prerenal azotemia. 2. History of possible chronic hyponatremia secondary to syndrome of inappropriate antidiuretic hormone. pt did not respond to max dose of Tolvaptan 300mg pO BID. Tolvaptan was not covered in the detention facility. 3. History of hypertension. 4. History of diabetes mellitus. 5. Chronic encephalopathy. 6. 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 7. History of G-tube in place. plan: demeclocycline stopped, on soidum chloride tablet 1 gram PO TID , Na dropped to 124- will give tolvaptan 15 mg pO x 1 dose now previolsy pt Na has been improved with one dose of tolvaptan - now will monitor Na and use tolvaptan as needed. will follow up Consultation Date/Type/Reason Admit Date/Time Initial Consult Date 11/18/16 Type of Consultation: NEPHROLOGY Referring Provider: JENELLE COLBY MD 24 HR Interval Summary Free Text/Dictation Na dropped to 124, BP stable Exam/Review of Systems Vital Signs Vitals Vital Signs Date Time Temp Pulse Resp B/P Pulse Ox O2 Delivery O2 Flow Rate FiO2 11/27/16 13:40 62 12 98 30 11/27/16 12:00 98.2 163/81 Intake and Output 11/26/16 11/26/16 11/27/16 15:00 23:00 07:00 Intake Total 986 ml 555 ml Output Total 450 ml 600 ml Balance 536 ml -45 ml Exam GENERAL: no acute distress, non verbal, non communicative LUNGS: Bilateral coarse breath sounds heard. No wheezing. HEART: S1, S2, tachycardia, no murmur. ABDOMEN: Soft. G-tube site is clear. No leaking, no discharge. Erythema around the G-tube. EXTREMITIES: 1+ pitting edema in the right ankle. SKIN: The patient has some pressure ulcers on admissions including the right heel and buttocks. small open wound on toe, s/p podiatry evaluation Results Result Diagram: 11/27/16 0609 11/27/16 1345 Results 24 hrs Laboratory Tests Test 11/26/16 17:06 11/27/16 00:13 11/27/16 01:00 11/27/16 05:51 Bedside Glucose 115 130 100 Urine Color LT. YELLOW Urine Clarity CLOUDY H Urine pH 8.0 Urine Specific [place] 1.020 Urine Ketones NEGATIVE Urine Nitrite POSITIVE H Urine Bilirubin NEGATIVE Urine Urobilinogen 1.0 E.U./dL Urine Leukocyte Esterase 1+ H Urine Microscopic RBC >200 Urine Microscopic WBC 10-25 Urine Squamous Epithelial Cells FEW Urine Bacteria MANY Urine Mucus OCCASIONAL Urine Hemoglobin 3+ H Urine Glucose NEGATIVE Urine Total Protein TRACE Test 11/27/16 06:09 11/27/16 09:57 11/27/16 11:48 11/27/16 13:45 White Blood Count 7.5 # Red Blood Count 3.27 L Hemoglobin 9.7 L Hematocrit 28.9 L Mean Corpuscular Volume 88.4 Mean Corpuscular Hemoglobin 29.7 Mean Corpuscular Hemoglobin Concent 33.6 Red Cell Distribution Width 16.3 H Platelet Count 259 Mean Platelet Volume 9.3 Neutrophils % 76.1 Lymphocytes % 10.7 L Monocytes % 9.3 Eosinophils % 2.0 Basophils % 1.2 Nucleated Red Blood Cells % 0.0 Neutrophils # 5.7 Lymphocytes # 0.8 Monocytes # 0.7 Eosinophils # 0.2 Basophils # 0.1 Nucleated Red Blood Cells # 0.0 Sodium Level 126 L 124 L Potassium Level 4.1 Chloride Level 94 L Carbon Dioxide Level 27 Anion Gap 9 Blood Urea Nitrogen 13 Creatinine 0.27 L Glucose Level 95 Calcium Level 7.8 L Total Bilirubin 0.3 Direct Bilirubin 0.00 Indirect Bilirubin 0.3 Aspartate Amino Transf (AST/SGOT) 61 H Alanine Aminotransferase (ALT/SGPT) 62 Alkaline Phosphatase 165 H Total Protein 5.7 L Albumin 2.7 L Globulin 3.00 Albumin/Globulin Ratio 0.90 Bedside Glucose 126 145 Medications Medications Current Medications Acetaminophen (Tylenol Tab) 650 mg Q6H PRN GTB PAIN AND OR ELEVATED TEMP; Start 11/18/16 at 23:30 Aspirin (Aspirin) 81 mg DAILY GTB Last administered on 11/27/16 09:57; Admin Dose 81 MG; Start 11/19/16 at 09:00 Atorvastatin Calcium (Lipitor) 40 mg QHS GTB Last administered on 11/26/16 20: 56; Admin Dose 40 MG; Start 11/19/16 at 21:00 Benazepril HCl (Lotensin) 10 mg DAILY GTB Last administered on 11/27/16 09:58 ; Admin Dose 10 MG; Start 11/19/16 at 09:00 Docusate Sodium (Colace Liquid Cup) 200 mg DAILY PRN GTB CONSTIPATION; Start at 23:30 Famotidine (Pepcid) 20 mg DAILY GTB Last administered on 11/27/16 09:58; Admin Dose 20 MG; Start 11/19/16 at 09:00 Ferrous Sulfate (Feosol Liquid Cup) 330 mg DAILY GTB Last administered on 09:57; Admin Dose 330 MG; Start 11/19/16 at 09:00 Hydralazine HCl (Apresoline) 25 mg Q6H PRN GTB ELEVATED BLOOD PRESSURE Last administered on 11/27/16 12:45; Admin Dose 25 MG; Start 11/18/16 at 23:30 Metoprolol Tartrate (Lopressor) 25 mg BID GTB Last administered on 11/27/16 09 :58; Admin Dose 25 MG; Start 11/18/16 at 23:30 Mineral Oil (Fleet Mineral Oil Enema) 133 ml DAILY PRN [place] CONSTIPATION; Start 11/18/16 at 23:30 Multivitamins Therapeutic (Theragran) 1 tab DAILY PO Last administered on 09:58; Admin Dose 1 TAB; Start 11/19/16 at 09:00 Ondansetron HCl (Zofran Tab) 4 mg Q4H PRN GTB NAUSEA AND/OR VOMITING; Start at 23:30 Sodium Chloride (Nacl) 1 gm TID GTB Last administered on 11/27/16 12:36; Admin Dose 1 GM; Start 11/19/16 at 09:00 Tamsulosin HCl (Flomax) 0.4 mg HS PO Last administered on 11/26/16 20:56; Admin Dose 0.4 MG; Start 11/19/16 at 21:00 Glucagon (Glucagen) 1 mg DAILY PRN IM LOW GLUCOSE; Start 11/18/16 at 23:30 Miscellaneous Information 1 ea NOTE XX ; Start 11/18/16 at 23:45 Glucose (Glutose) 15 gm Q15M PRN PO DECREASED GLUCOSE; Start 11/18/16 at 23:45 Glucose (Glutose) 22.5 gm Q15M PRN PO DECREASED GLUCOSE; Start 11/18/16 at 23: 45 Dextrose (D50w Syringe) 25 ml Q15M PRN IV DECREASED GLUCOSE Last administered on 11/25/16 06:42; Admin Dose 25 ML; Start 11/18/16 at 23:45 Dextrose (D50w Syringe) 50 ml Q15M PRN IV DECREASED GLUCOSE; Start 11/18/16 at 23:45 Glucagon (Glucagen) 1 mg Q15M PRN IM DECREASED GLUCOSE; Start 11/18/16 at 23:45 Glucose (Glutose) 15 gm Q15M PRN BUCCAL DECREASED GLUCOSE; Start 11/18/16 at 23 :45 Diagnostic Test (Pha) (Accu-Chek) 1 ea Q6 XX Last administered on 11/27/16 11: 50; Admin Dose 1 EA; Start 11/20/16 at 00:00 Insulin Aspart (Novolog Insulin Pen) NOVOLOG *MILD* ALGORITHM Q6 SC Last administered on 11/27/16 11:54; Admin Dose 1 UNIT; Start 11/20/16 at 00:00 Insulin Detemir (Levemir) 10 unit BID SC Last administered on 11/27/16 10:00; Admin Dose 10 UNIT; Start 11/20/16 at 21:00 Potassium Chloride (Potassium Chloride Pwd/Soln) 40 meq DAILY GTB Last administered on 11/27/16 09:58; Admin Dose 40 MEQ; Start 11/23/16 at 09:00 Cephalexin (Keflex Susp (Ped)) 500 mg Q6 GTB Last administered on 11/27/16 11: 47; Admin Dose 500 MG; Start 11/26/16 at 01:30 LISSA PARK MD Nov 27, 2016 15:42
--- NOTE | 2016-11-27 18:00 | PN ---
Date/Time of Note Date/Time of Note DATE: 11/27/16 TIME: 17:57 Assessment/Plan VTE Prophylaxis VTE Prophylaxis Intervention: SCD's Lines/Catheters [facility] Saline Lock Urinary Cath still in place: Yes Reason Cath still needed: urinary retention Assessment/Plan Chief Complaint/Hosp Course ASSESSMENT AND PLAN: 1. Acute on chronic hyponatremia secondary to syndrome of inappropriate antidiuretic hormone. Dr. Tovar is following in nephrology consultation. Patient is currently on sodium tablets supplement, status post tolvaptan on . continue to monitor sodium. 2. Ventilator-dependent respiratory failure. Continue ventilatory support. Dr. Clarke is following the patient in pulmonology consultation. Continue bronchodilators. 3. Brainstem glioma, status post ventriculoperitoneal shunt placement. Dr. Anand, palliative care consult is appreciated. 4. Status post cerebrovascular accident. 5. Chronic encephalopathy. 6. Seizure disorder. Continue Keppra. 7. Dysphagia with G-tube. 8. Transaminitis. Dr. Mas is following in gastroenterology consultation. 9. Diabetes mellitus type 2. Continue NovoLog and Lantus. 10. Hypertension. Continue benazepril 11. Hyperlipidemia, continue Lipitor. 12. Bedridden status with functional quadriplegia. Continue to assist patient with activities of daily living. 13. Multiple pressure sores present on admission. Continue current wound care. 14. R great big toe ulcer, Dr. Jaffe is following patient in podiatry consultation. DNR status. Continue sequential compression device for deep venous thrombosis prophylaxis. Prevacid for peptic ulcer disease prophylaxis. Further recommendations based on clinical course. Plan of care discussed with Dr. Desir. Problems: Subjective 24 Hr Interval Summary Free Text/Dictation Sodium is dropped to 124, status post tolvaptan today. Patient remains afebrile , no acute events reported per RN. Exam/Review of Systems Vital Signs Vitals Vital Signs Date Time Temp Pulse Resp B/P Pulse Ox O2 Delivery O2 Flow Rate FiO2 11/27/16 16:28 67 11/27/16 16:06 97.6 20 152/71 100 11/27/16 15:10 30 Intake and Output 11/26/16 11/26/16 11/27/16 15:00 23:00 07:00 Intake Total 986 ml 555 ml Output Total 450 ml 600 ml Balance 536 ml -45 ml Exam PHYSICAL ASSESSMENT GENERAL: A well-developed, obtunded gentleman on ventilator support via tracheostomy. HEENT: Head is atraumatic, normocephalic. PERRLA. NECK: Supple. There is a tracheostomy at the base of the neck. LUNGS: Scattered rhonchi bilaterally. There is no wheezing noted. Slightly diminished at the bases. CARDIOVASCULAR: Normal S1, S2. The patient is slightly tachycardic. No murmurs, gallops, clicks, rubs noted. ABDOMEN: Round, soft, nondistended, nontender. Patient has a G-tube. EXTREMITIES: Mild edema. There is no clubbing or cyanosis. SKIN: Patient has multiple pressure ulcers present on admission including a right heel and buttocks. NEUROLOGIC: Patient is obtunded, does not follow any commands, did not move any extremities. Results Result Diagram: 11/27/16 0609 11/27/16 1345 Results 24 hrs Laboratory Tests Test 11/27/16 00:13 11/27/16 01:00 11/27/16 05:51 11/27/16 06:09 Bedside Glucose 130 100 Urine Color LT. YELLOW Urine Clarity CLOUDY H Urine pH 8.0 Urine Specific [place] 1.020 Urine Ketones NEGATIVE Urine Nitrite POSITIVE H Urine Bilirubin NEGATIVE Urine Urobilinogen 1.0 E.U./dL Urine Leukocyte Esterase 1+ H Urine Microscopic RBC >200 Urine Microscopic WBC 10-25 Urine Squamous Epithelial Cells FEW Urine Bacteria MANY Urine Mucus OCCASIONAL Urine Hemoglobin 3+ H Urine Glucose NEGATIVE Urine Total Protein TRACE White Blood Count 7.5 # Red Blood Count 3.27 L Hemoglobin 9.7 L Hematocrit 28.9 L Mean Corpuscular Volume 88.4 Mean Corpuscular Hemoglobin 29.7 Mean Corpuscular Hemoglobin Concent 33.6 Red Cell Distribution Width 16.3 H Platelet Count 259 Mean Platelet Volume 9.3 Neutrophils % 76.1 Lymphocytes % 10.7 L Monocytes % 9.3 Eosinophils % 2.0 Basophils % 1.2 Nucleated Red Blood Cells % 0.0 Neutrophils # 5.7 Lymphocytes # 0.8 Monocytes # 0.7 Eosinophils # 0.2 Basophils # 0.1 Nucleated Red Blood Cells # 0.0 Sodium Level 126 L Potassium Level 4.1 Chloride Level 94 L Carbon Dioxide Level 27 Anion Gap 9 Blood Urea Nitrogen 13 Creatinine 0.27 L Glucose Level 95 Calcium Level 7.8 L Total Bilirubin 0.3 Direct Bilirubin 0.00 Indirect Bilirubin 0.3 Aspartate Amino Transf (AST/SGOT) 61 H Alanine Aminotransferase (ALT/SGPT) 62 Alkaline Phosphatase 165 H Total Protein 5.7 L Albumin 2.7 L Globulin 3.00 Albumin/Globulin Ratio 0.90 Test 11/27/16 09:57 11/27/16 11:48 11/27/16 13:45 Bedside Glucose 126 145 Sodium Level 124 L Medications Medications Current Medications Acetaminophen (Tylenol Tab) 650 mg Q6H PRN GTB PAIN AND OR ELEVATED TEMP; Start 11/18/16 at 23:30 Aspirin (Aspirin) 81 mg DAILY GTB Last administered on 11/27/16 09:57; Admin Dose 81 MG; Start 11/19/16 at 09:00 Atorvastatin Calcium (Lipitor) 40 mg QHS GTB Last administered on 11/26/16 20: 56; Admin Dose 40 MG; Start 11/19/16 at 21:00 Benazepril HCl (Lotensin) 10 mg DAILY GTB Last administered on 11/27/16 09:58 ; Admin Dose 10 MG; Start 11/19/16 at 09:00 Docusate Sodium (Colace Liquid Cup) 200 mg DAILY PRN GTB CONSTIPATION; Start at 23:30 Famotidine (Pepcid) 20 mg DAILY GTB Last administered on 11/27/16 09:58; Admin Dose 20 MG; Start 11/19/16 at 09:00 Ferrous Sulfate (Feosol Liquid Cup) 330 mg DAILY GTB Last administered on 09:57; Admin Dose 330 MG; Start 11/19/16 at 09:00 Hydralazine HCl (Apresoline) 25 mg Q6H PRN GTB ELEVATED BLOOD PRESSURE Last administered on 11/27/16 12:45; Admin Dose 25 MG; Start 11/18/16 at 23:30 Metoprolol Tartrate (Lopressor) 25 mg BID GTB Last administered on 11/27/16 09 :58; Admin Dose 25 MG; Start 11/18/16 at 23:30 Mineral Oil (Fleet Mineral Oil Enema) 133 ml DAILY PRN [place] CONSTIPATION; Start 11/18/16 at 23:30 Multivitamins Therapeutic (Theragran) 1 tab DAILY PO Last administered on 09:58; Admin Dose 1 TAB; Start 11/19/16 at 09:00 Ondansetron HCl (Zofran Tab) 4 mg Q4H PRN GTB NAUSEA AND/OR VOMITING; Start at 23:30 Sodium Chloride (Nacl) 1 gm TID GTB Last administered on 11/27/16 12:36; Admin Dose 1 GM; Start 11/19/16 at 09:00 Tamsulosin HCl (Flomax) 0.4 mg HS PO Last administered on 11/26/16 20:56; Admin Dose 0.4 MG; Start 11/19/16 at 21:00 Glucagon (Glucagen) 1 mg DAILY PRN IM LOW GLUCOSE; Start 11/18/16 at 23:30 Miscellaneous Information 1 ea NOTE XX ; Start 11/18/16 at 23:45 Glucose (Glutose) 15 gm Q15M PRN PO DECREASED GLUCOSE; Start 11/18/16 at 23:45 Glucose (Glutose) 22.5 gm Q15M PRN PO DECREASED GLUCOSE; Start 11/18/16 at 23: 45 Dextrose (D50w Syringe) 25 ml Q15M PRN IV DECREASED GLUCOSE Last administered on 11/25/16 06:42; Admin Dose 25 ML; Start 11/18/16 at 23:45 Dextrose (D50w Syringe) 50 ml Q15M PRN IV DECREASED GLUCOSE; Start 11/18/16 at 23:45 Glucagon (Glucagen) 1 mg Q15M PRN IM DECREASED GLUCOSE; Start 11/18/16 at 23:45 Glucose (Glutose) 15 gm Q15M PRN BUCCAL DECREASED GLUCOSE; Start 11/18/16 at 23 :45 Diagnostic Test (Pha) (Accu-Chek) 1 ea Q6 XX Last administered on 11/27/16 11: 50; Admin Dose 1 EA; Start 11/20/16 at 00:00 Insulin Aspart (Novolog Insulin Pen) NOVOLOG *MILD* ALGORITHM Q6 SC Last administered on 11/27/16 11:54; Admin Dose 1 UNIT; Start 11/20/16 at 00:00 Insulin Detemir (Levemir) 10 unit BID SC Last administered on 11/27/16 10:00; Admin Dose 10 UNIT; Start 11/20/16 at 21:00 Potassium Chloride (Potassium Chloride Pwd/Soln) 40 meq DAILY GTB Last administered on 11/27/16 09:58; Admin Dose 40 MEQ; Start 11/23/16 at 09:00 Cephalexin (Keflex Susp (Ped)) 500 mg Q6 GTB Last administered on 11/27/16 11: 47; Admin Dose 500 MG; Start 11/26/16 at 01:30 ALTHEA ACOSTA Nov 27, 2016 18:00
--- NOTE | 2016-11-27 18:04 | PN ---
Date/Time of Note Date/Time of Note DATE: 11/27/16 TIME: 18:03 Assessment/Plan Lines/Catheters IV Catheter Type (from Nrs): Saline Lock Knapp in Place (from Nrs): Yes Assessment/Plan Problems: (1) Ingrown right big toenail (2) Pain of right great toe (3) Paronychia of great toe, right Assessment/Plan Bedside partial nail avulsion of the right big toe ingrown toenail will be scheduled. Exam/Review of Systems Vital Signs Vitals Vital Signs Date Time Temp Pulse Resp B/P Pulse Ox O2 Delivery O2 Flow Rate FiO2 11/27/16 16:28 67 11/27/16 16:06 97.6 20 152/71 100 11/27/16 15:10 30 Intake and Output 11/26/16 11/26/16 11/27/16 15:00 23:00 07:00 Intake Total 986 ml 555 ml Output Total 450 ml 600 ml Balance 536 ml -45 ml Results Result Diagram: 11/27/16 0609 11/27/16 1345 RANDAL LEAL DPM Nov 27, 2016 18:04
[2016-11-27] MEDS: ATORVASTATIN 40 MG TAB GTB SCH (20:08)
[2016-11-27] MEDS: TAMSULOSIN (SR) 0.4 MG CAP PO SCH (20:08)
[2016-11-28] VITALS (23 sets, daily range): BP systolic 110–135; BP diastolic 59–70; PULSE 66–74; RESP 12–14
[2016-11-28] MEDS: CEPHALEXIN (50 MG/ML PO SYG) GTB SCH ×4 (00:23→18:14)
[2016-11-28] MEDS: ACCU-CHEK XX SCH ×4 (00:23→18:14)
[2016-11-28] MEDS: INSULIN ASPART [NOVOLOG] 3 ML PEN SC SCH ×4 (00:26→18:00)
[2016-11-28 06:25] LABS: ADD SCAN DIFF NO
[2016-11-28 06:41] LABS: BASOPHIL # 0.1 10^3/ul (0.0-0.1); BASOPHILS % 1.4 % (0.0-2.0); EOSINOPHILS # 0.1 10^3/ul (0.0-0.5); EOSINOPHILS % 2.1 % (0.0-7.0); HEMATOCRIT 33.4 % (42.0-52.0); LYMPHOCYTES # 0.8 10^3/ul (0.8-2.9); LYMPHOCYTES % 12.7 % (15.0-51.0); MEAN CORPUSCULAR HEMOGLOBIN 29.6 pg (29.0-33.0); MEAN CORPUSCULAR HGB CONC 32.9 g/dl (32.0-37.0); MEAN PLATELET VOLUME 9.8 fl (7.4-10.4); MONOCYTE # 0.9 10^3/ul (0.3-0.9); MONOCYTES % 13.9 % (0.0-11.0); NEUTROPHIL # 4.4 10^3/ul (1.6-7.5); NEUTROPHILS % 69.1 % (39.0-77.0); PLATELET COUNT 287 10^3/UL (140-415); RED BLOOD COUNT 3.71 10^6/ul (4.70-6.10); RED CELL DISTRIBUTION WIDTH 16.5 % (11.5-14.5); WHITE BLOOD COUNT 6.3 10^3/ul (4.8-10.8)
[2016-11-28 07:08] LABS: POTASSIUM 4.3 mmol/L (3.5-5.1)
[2016-11-28 07:10] LABS: CREATININE 0.31 mg/dl (0.61-1.24)
[2016-11-28 07:11] LABS: CALCIUM 8.7 mg/dl (8.4-10.2)
[2016-11-28] MEDS: ASPIRIN 81 MG TAB GTB SCH (09:41)
[2016-11-28] MEDS: METOPROLOL 25 MG TAB GTB SCH ×2 (09:41→20:16)
[2016-11-28] MEDS: SODIUM CHLORIDE 1 GM TAB GTB SCH ×3 (09:41→20:14)
[2016-11-28] MEDS: FERROUS SULFATE 60 MG/ML 5ML CUP GTB SCH (09:41)
[2016-11-28] MEDS: BENAZEPRIL 10 MG TAB GTB SCH (09:42)
[2016-11-28] MEDS: MULTIVITAMINS THERAPEUTIC TAB PO SCH (09:42)
[2016-11-28] MEDS: POTASSIUM CHLORIDE 20 MEQ POWDER FOR ORAL SOLN GTB SCH (09:44)
[2016-11-28] MEDS: FAMOTIDINE 20 MG TAB GTB SCH (09:44)
[2016-11-28] MEDS: INSULIN DETEMIR [LEVEMIR] 3ML CART SC SCH ×2 (10:18→20:24)
--- NOTE | 2016-11-28 12:26 | PN ---
Date/Time of Note Date/Time of Note DATE: 11/28/16 TIME: 12:25 Assessment/Plan VTE Prophylaxis VTE Prophylaxis Intervention: other Lines/Catheters IV Catheter Type (from [facility]): Saline Lock Urinary Cath still in place: Yes Reason Cath still needed: skin wounds contaminated by urine Assessment/Plan Chief Complaint/Hosp Course 1. Acute on chronic hyponatremia secondary to syndrome of inappropriate antidiuretic hormone. Dr. Tovar is following in nephrology consultation. Patient is currently on sodium tablets supplement, status post tolvaptan on . continue to monitor sodium. 2. Ventilator-dependent respiratory failure. Continue ventilatory support. Dr. Clarke is following the patient in pulmonology consultation. Continue bronchodilators. 3. Brainstem glioma, status post ventriculoperitoneal shunt placement. Dr. Anand, palliative care consult is appreciated. 4. Status post cerebrovascular accident. 5. Chronic encephalopathy. 6. Seizure disorder. Continue Keppra. 7. Dysphagia with G-tube. 8. Transaminitis. Dr. Mas is following in gastroenterology consultation. 9. Diabetes mellitus type 2. Continue NovoLog and Lantus. 10. Hypertension. Continue benazepril 11. Hyperlipidemia, continue Lipitor. 12. Bedridden status with functional quadriplegia. Continue to assist patient with activities of daily living. 13. Multiple pressure sores present on admission. Continue current wound care. 14. R great big toe ulcer, Dr. Jaffe is following patient in podiatry consultation. DNR status. Problems: Subjective 24 Hr Interval Summary Free Text/Dictation Patient resting, on ventilator via trach Exam/Review of Systems Vital Signs Vitals Vital Signs Date Time Temp Pulse Resp B/P Pulse Ox O2 Delivery O2 Flow Rate FiO2 11/28/16 12:21 68 11/28/16 11:50 98.5 14 135/65 98 11/28/16 11:12 30 Intake and Output 11/27/16 11/27/16 11/28/16 15:00 23:00 07:00 Intake Total 980 ml 550 ml Output Total 750 ml 2800 ml Balance 230 ml -2250 ml Exam Constitutional: well developed Head: atraumatic, normocephalic Neck: supple Respiratory: diminished breath sounds Cardiovascular: regular rate and rhythm Gastrointestinal: non-tender, soft Extremities: normal pulses Results Result Diagram: 11/28/16 0540 11/28/16 0540 Results 24 hrs Laboratory Tests Test 11/27/16 13:45 11/27/16 17:57 11/27/16 20:07 11/27/16 20:30 Sodium Level 124 L 126 L Bedside Glucose 156 156 Test 11/28/16 00:20 11/28/16 05:06 11/28/16 05:40 11/28/16 09:52 Bedside Glucose 207 135 181 White Blood Count 6.3 Red Blood Count 3.71 L Hemoglobin 11.0 L Hematocrit 33.4 L Mean Corpuscular Volume 90.0 Mean Corpuscular Hemoglobin 29.6 Mean Corpuscular Hemoglobin Concent 32.9 Red Cell Distribution Width 16.5 H Platelet Count 287 Mean Platelet Volume 9.8 Neutrophils % 69.1 Lymphocytes % 12.7 L Monocytes % 13.9 H Eosinophils % 2.1 Basophils % 1.4 Nucleated Red Blood Cells % 0.0 Neutrophils # 4.4 Lymphocytes # 0.8 Monocytes # 0.9 Eosinophils # 0.1 Basophils # 0.1 Nucleated Red Blood Cells # 0.0 Sodium Level 133 L Potassium Level 4.3 Chloride Level 101 Carbon Dioxide Level 28 Anion Gap 8 Blood Urea Nitrogen 12 Creatinine 0.31 L Glucose Level 145 # Calcium Level 8.7 Test 11/28/16 11:23 Bedside Glucose 168 Medications Medications Current Medications Acetaminophen (Tylenol Tab) 650 mg Q6H PRN GTB PAIN AND OR ELEVATED TEMP; Start 11/18/16 at 23:30 Aspirin (Aspirin) 81 mg DAILY GTB Last administered on 11/28/16 09:41; Admin Dose 81 MG; Start 11/19/16 at 09:00 Atorvastatin Calcium (Lipitor) 40 mg QHS GTB Last administered on 11/27/16 20: 08; Admin Dose 40 MG; Start 11/19/16 at 21:00 Benazepril HCl (Lotensin) 10 mg DAILY GTB Last administered on 11/28/16 09:42; Admin Dose 10 MG; Start 11/19/16 at 09:00 Docusate Sodium (Colace Liquid Cup) 200 mg DAILY PRN GTB CONSTIPATION; Start at 23:30 Famotidine (Pepcid) 20 mg DAILY GTB Last administered on 11/28/16 09:44; Admin Dose 20 MG; Start 11/19/16 at 09:00 Ferrous Sulfate (Feosol Liquid Cup) 330 mg DAILY GTB Last administered on 09:41; Admin Dose 330 MG; Start 11/19/16 at 09:00 Hydralazine HCl (Apresoline) 25 mg Q6H PRN GTB ELEVATED BLOOD PRESSURE Last administered on 11/27/16 12:45; Admin Dose 25 MG; Start 11/18/16 at 23:30 Metoprolol Tartrate (Lopressor) 25 mg BID GTB Last administered on 11/28/16 09: 41; Admin Dose 25 MG; Start 11/18/16 at 23:30 Mineral Oil (Fleet Mineral Oil Enema) 133 ml DAILY PRN [place] CONSTIPATION; Start 11/18/16 at 23:30 Multivitamins Therapeutic (Theragran) 1 tab DAILY PO Last administered on 09:42; Admin Dose 1 TAB; Start 11/19/16 at 09:00 Ondansetron HCl (Zofran Tab) 4 mg Q4H PRN GTB NAUSEA AND/OR VOMITING; Start at 23:30 Sodium Chloride (Nacl) 1 gm TID GTB Last administered on 11/28/16 09:41; Admin Dose 1 GM; Start 11/19/16 at 09:00 Tamsulosin HCl (Flomax) 0.4 mg HS PO Last administered on 11/27/16 20:08; Admin Dose 0.4 MG; Start 11/19/16 at 21:00 Glucagon (Glucagen) 1 mg DAILY PRN IM LOW GLUCOSE; Start 11/18/16 at 23:30 Miscellaneous Information 1 ea NOTE XX ; Start 11/18/16 at 23:45 Glucose (Glutose) 15 gm Q15M PRN PO DECREASED GLUCOSE; Start 11/18/16 at 23:45 Glucose (Glutose) 22.5 gm Q15M PRN PO DECREASED GLUCOSE; Start 11/18/16 at 23: 45 Dextrose (D50w Syringe) 25 ml Q15M PRN IV DECREASED GLUCOSE Last administered on 11/25/16 06:42; Admin Dose 25 ML; Start 11/18/16 at 23:45 Dextrose (D50w Syringe) 50 ml Q15M PRN IV DECREASED GLUCOSE; Start 11/18/16 at 23:45 Glucagon (Glucagen) 1 mg Q15M PRN IM DECREASED GLUCOSE; Start 11/18/16 at 23:45 Glucose (Glutose) 15 gm Q15M PRN BUCCAL DECREASED GLUCOSE; Start 11/18/16 at 23 :45 Diagnostic Test (Pha) (Accu-Chek) 1 ea Q6 XX Last administered on 11/28/16 05: 07; Admin Dose 1 EA; Start 11/20/16 at 00:00 Insulin Aspart (Novolog Insulin Pen) NOVOLOG *MILD* ALGORITHM Q6 SC Last administered on 11/28/16 00:26; Admin Dose 1 UNIT; Start 11/20/16 at 00:00 Insulin Detemir (Levemir) 10 unit BID SC Last administered on 11/28/16 10:18; Admin Dose 10 UNIT; Start 11/20/16 at 21:00 Potassium Chloride (Potassium Chloride Pwd/Soln) 40 meq DAILY GTB Last administered on 11/28/16 09:44; Admin Dose 40 MEQ; Start 11/23/16 at 09:00 Cephalexin (Keflex Susp (Ped)) 500 mg Q6 GTB Last administered on 11/28/16 05: 03; Admin Dose 500 MG; Start 11/26/16 at 01:30 NORY BARGER Nov 28, 2016 12:26
--- NOTE | 2016-11-28 13:14 | PN ---
DATE: 11/27/2016 FAMILY CONFERENCE I had a long conversation with patient's on 11/26/2016. She had made it very clear that she wa nted to keep him as a DO NOT RESUSCITATE, but all other interventions are to continue. She does not want to withdraw care in spite of the fact that the patient remained in a vegetative state. She con centrates her attention on an MR study and other issues associated with his current including pediat hamzah care and nursing care. Continue to support her decision. I do not believe there is any indicati on at this time for a bioethics consult. Dictated By: MARY VILLALPANDO MD LP/NTS Conf#: [id number] DID#: [id number]
--- NOTE | 2016-11-28 19:17 | CONS ---
Date/Time of Note Date/Time of Note DATE: 11/28/16 TIME: 19:16 Consult Date/Type/Reason Admit Date/Time Nov 20, 2016 at 15:20 Initial Consult Date 11/19/16 Type of Consultation: Pulm Ordering Provider: JENELLE COLBY MD Subjective Unresponsive on vent. Objective Vital Signs Date Time Temp Pulse Resp B/P Pulse Ox O2 Delivery O2 Flow Rate FiO2 11/28/16 17:12 83 12 98 30 11/28/16 15:31 98.3 132/66 Intake and Output 11/27/16 11/27/16 11/28/16 15:00 23:00 07:00 Intake Total 980 ml 550 ml Output Total 750 ml 2800 ml Balance 230 ml -2250 ml Exam HEENT: Pupils equal, round, and reactive to light. Tracheostomy site clean and intact. CARDIAC: S1, S2, no added sounds or murmurs CHEST: Diminished air entry bilaterally. ABDOMEN: Mildly distended. Bowel sounds present no guarding or rebound EXTREMITIES: No cyanosis, clubbing edema +1 Results/Medications Result Diagram: 11/28/16 0540 11/28/16 0540 Results 24 hrs Laboratory Tests Test 11/27/16 20:07 11/27/16 20:30 11/28/16 00:20 11/28/16 05:06 Bedside Glucose 156 207 135 Sodium Level 126 L Test 11/28/16 05:40 11/28/16 09:52 11/28/16 11:23 11/28/16 18:13 White Blood Count 6.3 Red Blood Count 3.71 L Hemoglobin 11.0 L Hematocrit 33.4 L Mean Corpuscular Volume 90.0 Mean Corpuscular Hemoglobin 29.6 Mean Corpuscular Hemoglobin Concent 32.9 Red Cell Distribution Width 16.5 H Platelet Count 287 Mean Platelet Volume 9.8 Neutrophils % 69.1 Lymphocytes % 12.7 L Monocytes % 13.9 H Eosinophils % 2.1 Basophils % 1.4 Nucleated Red Blood Cells % 0.0 Neutrophils # 4.4 Lymphocytes # 0.8 Monocytes # 0.9 Eosinophils # 0.1 Basophils # 0.1 Nucleated Red Blood Cells # 0.0 Sodium Level 133 L Potassium Level 4.3 Chloride Level 101 Carbon Dioxide Level 28 Anion Gap 8 Blood Urea Nitrogen 12 Creatinine 0.31 L Glucose Level 145 # Calcium Level 8.7 Bedside Glucose 181 168 122 Medications Current Medications Acetaminophen (Tylenol Tab) 650 mg Q6H PRN GTB PAIN AND OR ELEVATED TEMP; Start 11/18/16 at 23:30 Aspirin (Aspirin) 81 mg DAILY GTB Last administered on 11/28/16 09:41; Admin Dose 81 MG; Start 11/19/16 at 09:00 Atorvastatin Calcium (Lipitor) 40 mg QHS GTB Last administered on 11/27/16 20: 08; Admin Dose 40 MG; Start 11/19/16 at 21:00 Benazepril HCl (Lotensin) 10 mg DAILY GTB Last administered on 11/28/16 09:42; Admin Dose 10 MG; Start 11/19/16 at 09:00 Docusate Sodium (Colace Liquid Cup) 200 mg DAILY PRN GTB CONSTIPATION; Start at 23:30 Famotidine (Pepcid) 20 mg DAILY GTB Last administered on 11/28/16 09:44; Admin Dose 20 MG; Start 11/19/16 at 09:00 Ferrous Sulfate (Feosol Liquid Cup) 330 mg DAILY GTB Last administered on 09:41; Admin Dose 330 MG; Start 11/19/16 at 09:00 Hydralazine HCl (Apresoline) 25 mg Q6H PRN GTB ELEVATED BLOOD PRESSURE Last administered on 11/27/16 12:45; Admin Dose 25 MG; Start 11/18/16 at 23:30 Metoprolol Tartrate (Lopressor) 25 mg BID GTB Last administered on 11/28/16 09: 41; Admin Dose 25 MG; Start 11/18/16 at 23:30 Mineral Oil (Fleet Mineral Oil Enema) 133 ml DAILY PRN [place] CONSTIPATION; Start 11/18/16 at 23:30 Multivitamins Therapeutic (Theragran) 1 tab DAILY PO Last administered on 09:42; Admin Dose 1 TAB; Start 11/19/16 at 09:00 Ondansetron HCl (Zofran Tab) 4 mg Q4H PRN GTB NAUSEA AND/OR VOMITING; Start at 23:30 Sodium Chloride (Nacl) 1 gm TID GTB Last administered on 11/28/16 12:52; Admin Dose 1 GM; Start 11/19/16 at 09:00 Tamsulosin HCl (Flomax) 0.4 mg HS PO Last administered on 11/27/16 20:08; Admin Dose 0.4 MG; Start 11/19/16 at 21:00 Glucagon (Glucagen) 1 mg DAILY PRN IM LOW GLUCOSE; Start 11/18/16 at 23:30 Miscellaneous Information 1 ea NOTE XX ; Start 11/18/16 at 23:45 Glucose (Glutose) 15 gm Q15M PRN PO DECREASED GLUCOSE; Start 11/18/16 at 23:45 Glucose (Glutose) 22.5 gm Q15M PRN PO DECREASED GLUCOSE; Start 11/18/16 at 23: 45 Dextrose (D50w Syringe) 25 ml Q15M PRN IV DECREASED GLUCOSE Last administered on 11/25/16 06:42; Admin Dose 25 ML; Start 11/18/16 at 23:45 Dextrose (D50w Syringe) 50 ml Q15M PRN IV DECREASED GLUCOSE; Start 11/18/16 at 23:45 Glucagon (Glucagen) 1 mg Q15M PRN IM DECREASED GLUCOSE; Start 11/18/16 at 23:45 Glucose (Glutose) 15 gm Q15M PRN BUCCAL DECREASED GLUCOSE; Start 11/18/16 at 23 :45 Diagnostic Test (Pha) (Accu-Chek) 1 ea Q6 XX Last administered on 11/28/16 18: 14; Admin Dose 1 EA; Start 11/20/16 at 00:00 Insulin Aspart (Novolog Insulin Pen) NOVOLOG *MILD* ALGORITHM Q6 SC Last administered on 11/28/16 12:51; Admin Dose 1 UNIT; Start 11/20/16 at 00:00 Insulin Detemir (Levemir) 10 unit BID SC Last administered on 11/28/16 10:18; Admin Dose 10 UNIT; Start 11/20/16 at 21:00 Potassium Chloride (Potassium Chloride Pwd/Soln) 40 meq DAILY GTB Last administered on 11/28/16 09:44; Admin Dose 40 MEQ; Start 11/23/16 at 09:00 Cephalexin (Keflex Susp (Ped)) 500 mg Q6 GTB Last administered on 11/28/16 18: 14; Admin Dose 500 MG; Start 11/26/16 at 01:30 Assessment/Plan Additional Assessment/Plan IMP: 1. Vent dependent respiratory failure 2. Encephalopathy, brainstem glioma with [employer] shunt 3. Dysphagia with G-tube 4. Anemia of chronic disease 5. Hyponatremia likely SIADH RECS: 1. Agree with palliative care consult-->DNR 2. Continue mechanical ventilation 3. Continue DVT and GI prophylaxis 4. TF/Free H2O ELINA BENTLEY MD Nov 28, 2016 19:17
[2016-11-28] MEDS: TAMSULOSIN (SR) 0.4 MG CAP PO SCH (20:15)
[2016-11-28] MEDS: ATORVASTATIN 40 MG TAB GTB SCH (20:15)
--- NOTE | 2016-11-28 22:14 | CONS ---
Date/Time of Note Date/Time of Note DATE: 11/28/16 TIME: 22:12 Assessment/Plan Assessment/Plan Additional Assessment/Plan 1. Severe hyponatremia, acute on chronic hyponatremia secondary to syndrome of inappropriate antidiuretic hormone with some prerenal azotemia. 2. History of possible chronic hyponatremia secondary to syndrome of inappropriate antidiuretic hormone. pt did not respond to max dose of Tolvaptan 300mg pO BID. Tolvaptan was not covered in the retirement facility. 3. History of hypertension. 4. History of diabetes mellitus. 5. Chronic encephalopathy. 6. 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 7. History of G-tube in place. plan: on soidum chloride tablet 1 gram PO TID , Na dropped to 124- s/p tolvaptan 15 mg pO x 1 dose on 11/27/16 Na improved to 133 previolsy pt Na has been improved with one dose of tolvaptan - now will monitor Na and use tolvaptan as needed. will follow up Consultation Date/Type/Reason Admit Date/Time Initial Consult Date 11/18/16 Type of Consultation: NEPHROLOGY Referring Provider: JENELLE COLBY MD 24 HR Interval Summary Free Text/Dictation S/p one dose of tolvaptan 15mg, Na improved to 133, Bp stable Exam/Review of Systems Vital Signs Vitals Vital Signs Date Time Temp Pulse Resp B/P Pulse Ox O2 Delivery O2 Flow Rate FiO2 11/28/16 21:47 75 12 98 30 11/28/16 20:10 98.3 110/59 Intake and Output 11/27/16 11/27/16 11/28/16 15:00 23:00 07:00 Intake Total 980 ml 550 ml Output Total 750 ml 2800 ml Balance 230 ml -2250 ml Exam GENERAL: no acute distress, non verbal, non communicative LUNGS: Bilateral coarse breath sounds heard. No wheezing. HEART: S1, S2, tachycardia, no murmur. ABDOMEN: Soft. G-tube site is clear. No leaking, no discharge. Erythema around the G-tube. EXTREMITIES: 1+ pitting edema in the right ankle. SKIN: The patient has some pressure ulcers on admissions including the right heel and buttocks. small open wound on toe, s/p podiatry evaluation Results Result Diagram: 11/28/16 0540 11/28/16 0540 Results 24 hrs Laboratory Tests Test 11/28/16 00:20 11/28/16 05:06 11/28/16 05:40 11/28/16 09:52 Bedside Glucose 207 135 181 White Blood Count 6.3 Red Blood Count 3.71 L Hemoglobin 11.0 L Hematocrit 33.4 L Mean Corpuscular Volume 90.0 Mean Corpuscular Hemoglobin 29.6 Mean Corpuscular Hemoglobin Concent 32.9 Red Cell Distribution Width 16.5 H Platelet Count 287 Mean Platelet Volume 9.8 Neutrophils % 69.1 Lymphocytes % 12.7 L Monocytes % 13.9 H Eosinophils % 2.1 Basophils % 1.4 Nucleated Red Blood Cells % 0.0 Neutrophils # 4.4 Lymphocytes # 0.8 Monocytes # 0.9 Eosinophils # 0.1 Basophils # 0.1 Nucleated Red Blood Cells # 0.0 Sodium Level 133 L Potassium Level 4.3 Chloride Level 101 Carbon Dioxide Level 28 Anion Gap 8 Blood Urea Nitrogen 12 Creatinine 0.31 L Glucose Level 145 # Calcium Level 8.7 Test 11/28/16 11:23 11/28/16 18:13 11/28/16 20:14 Bedside Glucose 168 122 117 Medications Medications Current Medications Acetaminophen (Tylenol Tab) 650 mg Q6H PRN GTB PAIN AND OR ELEVATED TEMP; Start 11/18/16 at 23:30 Aspirin (Aspirin) 81 mg DAILY GTB Last administered on 11/28/16 09:41; Admin Dose 81 MG; Start 11/19/16 at 09:00 Atorvastatin Calcium (Lipitor) 40 mg QHS GTB Last administered on 11/28/16 20: 15; Admin Dose 40 MG; Start 11/19/16 at 21:00 Benazepril HCl (Lotensin) 10 mg DAILY GTB Last administered on 11/28/16 09:42; Admin Dose 10 MG; Start 11/19/16 at 09:00 Docusate Sodium (Colace Liquid Cup) 200 mg DAILY PRN GTB CONSTIPATION; Start at 23:30 Famotidine (Pepcid) 20 mg DAILY GTB Last administered on 11/28/16 09:44; Admin Dose 20 MG; Start 11/19/16 at 09:00 Ferrous Sulfate (Feosol Liquid Cup) 330 mg DAILY GTB Last administered on 09:41; Admin Dose 330 MG; Start 11/19/16 at 09:00 Hydralazine HCl (Apresoline) 25 mg Q6H PRN GTB ELEVATED BLOOD PRESSURE Last administered on 11/27/16 12:45; Admin Dose 25 MG; Start 11/18/16 at 23:30 Metoprolol Tartrate (Lopressor) 25 mg BID GTB Last administered on 11/28/16 20: 16; Admin Dose 25 MG; Start 11/18/16 at 23:30 Mineral Oil (Fleet Mineral Oil Enema) 133 ml DAILY PRN [place] CONSTIPATION; Start 11/18/16 at 23:30 Multivitamins Therapeutic (Theragran) 1 tab DAILY PO Last administered on 09:42; Admin Dose 1 TAB; Start 11/19/16 at 09:00 Ondansetron HCl (Zofran Tab) 4 mg Q4H PRN GTB NAUSEA AND/OR VOMITING; Start at 23:30 Sodium Chloride (Nacl) 1 gm TID GTB Last administered on 11/28/16 20:14; Admin Dose 1 GM; Start 11/19/16 at 09:00 Tamsulosin HCl (Flomax) 0.4 mg HS PO Last administered on 11/28/16 20:15; Admin Dose 0.4 MG; Start 11/19/16 at 21:00 Glucagon (Glucagen) 1 mg DAILY PRN IM LOW GLUCOSE; Start 11/18/16 at 23:30 Miscellaneous Information 1 ea NOTE XX ; Start 11/18/16 at 23:45 Glucose (Glutose) 15 gm Q15M PRN PO DECREASED GLUCOSE; Start 11/18/16 at 23:45 Glucose (Glutose) 22.5 gm Q15M PRN PO DECREASED GLUCOSE; Start 11/18/16 at 23: 45 Dextrose (D50w Syringe) 25 ml Q15M PRN IV DECREASED GLUCOSE Last administered on 11/25/16 06:42; Admin Dose 25 ML; Start 11/18/16 at 23:45 Dextrose (D50w Syringe) 50 ml Q15M PRN IV DECREASED GLUCOSE; Start 11/18/16 at 23:45 Glucagon (Glucagen) 1 mg Q15M PRN IM DECREASED GLUCOSE; Start 3/22/17 at 23:45 Glucose (Glutose) 15 gm Q15M PRN BUCCAL DECREASED GLUCOSE; Start 11/18/16 at 23 :45 Diagnostic Test (Pha) (Accu-Chek) 1 ea Q6 XX Last administered on 11/28/16 18: 14; Admin Dose 1 EA; Start 11/20/16 at 00:00 Insulin Aspart (Novolog Insulin Pen) NOVOLOG *MILD* ALGORITHM Q6 SC Last administered on 11/28/16 12:51; Admin Dose 1 UNIT; Start 11/20/16 at 00:00 Insulin Detemir (Levemir) 10 unit BID SC Last administered on 11/28/16 20:24; Admin Dose 10 UNIT; Start 11/20/16 at 21:00 Potassium Chloride (Potassium Chloride Pwd/Soln) 40 meq DAILY GTB Last administered on 11/28/16 09:44; Admin Dose 40 MEQ; Start 11/23/16 at 09:00 Cephalexin (Keflex Susp (Ped)) 500 mg Q6 GTB Last administered on 11/28/16 18: 14; Admin Dose 500 MG; Start 11/26/16 at 01:30 LISSA PARK MD Nov 28, 2016 22:14
[2016-11-29] VITALS (24 sets, daily range): BP systolic 101–128; BP diastolic 58–62; PULSE 63–85; RESP 12–20
[2016-11-29] MEDS: CEPHALEXIN (50 MG/ML PO SYG) GTB SCH ×4 (00:43→17:48)
[2016-11-29] MEDS: ACCU-CHEK XX SCH ×4 (00:44→17:48)
[2016-11-29] MEDS: INSULIN ASPART [NOVOLOG] 3 ML PEN SC SCH ×4 (05:53→17:48)
[2016-11-29 07:09] LABS: POTASSIUM 3.7 mmol/L (3.5-5.1)
[2016-11-29 07:12] LABS: CREATININE 0.28 mg/dl (0.61-1.24)
[2016-11-29 07:13] LABS: CALCIUM 8.4 mg/dl (8.4-10.2)
[2016-11-29] MEDS: ASPIRIN 81 MG TAB GTB SCH (08:18)
[2016-11-29] MEDS: FERROUS SULFATE 60 MG/ML 5ML CUP GTB SCH (08:19)
[2016-11-29] MEDS: METOPROLOL 25 MG TAB GTB SCH ×2 (08:21→21:18)
[2016-11-29] MEDS: SODIUM CHLORIDE 1 GM TAB GTB SCH ×3 (08:22→21:16)
[2016-11-29] MEDS: BENAZEPRIL 10 MG TAB GTB SCH (08:22)
[2016-11-29] MEDS: FAMOTIDINE 20 MG TAB GTB SCH (08:22)
[2016-11-29] MEDS: MULTIVITAMINS THERAPEUTIC TAB PO SCH (08:24)
[2016-11-29] MEDS: POTASSIUM CHLORIDE 20 MEQ POWDER FOR ORAL SOLN GTB SCH (08:24)
[2016-11-29] MEDS: INSULIN DETEMIR [LEVEMIR] 3ML CART SC SCH ×2 (08:40→21:24)
--- NOTE | 2016-11-29 11:43 | PN ---
Date/Time of Note Date/Time of Note DATE: 11/29/16 TIME: 11:42 Assessment/Plan VTE Prophylaxis VTE Prophylaxis Intervention: other Lines/Catheters [facility] Saline Lock Urinary Cath still in place: Yes Reason Cath still needed: skin wounds contaminated by urine Assessment/Plan Chief Complaint/Hosp Course 1. Acute on chronic hyponatremia secondary to syndrome of inappropriate antidiuretic hormone. Dr. Tovar is following in nephrology consultation. Patient is currently on sodium tablets supplement, status post tolvaptan on . continue to monitor sodium. 2. Ventilator-dependent respiratory failure. Continue ventilatory support. Dr. Clarke is following the patient in pulmonology consultation. Continue bronchodilators. 3. Brainstem glioma, status post ventriculoperitoneal shunt placement. Dr. Anand, palliative care consult is appreciated. 4. Status post cerebrovascular accident. 5. Chronic encephalopathy. 6. Seizure disorder. Continue Keppra. 7. Dysphagia with G-tube. 8. Transaminitis. Dr. Mas is following in gastroenterology consultation. 9. Diabetes mellitus type 2. Continue NovoLog and Lantus. 10. Hypertension. Continue benazepril 11. Hyperlipidemia, continue Lipitor. 12. Bedridden status with functional quadriplegia. Continue to assist patient with activities of daily living. 13. Multiple pressure sores present on admission. Continue current wound care. 14. R great big toe ulcer, Dr. Jaffe is following patient in podiatry consultation. DNR status. Problems: Subjective 24 Hr Interval Summary Free Text/Dictation Patient is sedated, on ventilator Exam/Review of Systems Vital Signs Vitals Vital Signs Date Time Temp Pulse Resp B/P Pulse Ox O2 Delivery O2 Flow Rate FiO2 11/29/16 09:58 77 12 97 30 11/29/16 08:13 98.1 105/58 Intake and Output 11/28/16 11/28/16 11/29/16 15:00 23:00 07:00 Intake Total 850 ml 460 ml Output Total 1800 ml 450 ml Balance -950 ml 10 ml Exam Constitutional: well developed Head: atraumatic, normocephalic Neck: supple Respiratory: diminished breath sounds Cardiovascular: regular rate and rhythm Gastrointestinal: non-tender, soft Extremities: normal pulses Results Result Diagram: 11/28/16 0540 11/29/16 0604 Results 24 hrs Laboratory Tests Test 11/28/16 18:13 11/28/16 20:14 11/29/16 00:36 11/29/16 05:51 Bedside Glucose 122 117 104 82 Test 11/29/16 06:04 11/29/16 08:34 Sodium Level 137 Potassium Level 3.7 Chloride Level 105 Carbon Dioxide Level 28 Anion Gap 8 Blood Urea Nitrogen 15 Creatinine 0.28 L Glucose Level 83 # Calcium Level 8.4 Bedside Glucose 86 Medications Medications Current Medications Acetaminophen (Tylenol Tab) 650 mg Q6H PRN GTB PAIN AND OR ELEVATED TEMP; Start 11/18/16 at 23:30 Aspirin (Aspirin) 81 mg DAILY GTB Last administered on 11/29/16 08:18; Admin Dose 81 MG; Start 11/19/16 at 09:00 Atorvastatin Calcium (Lipitor) 40 mg QHS GTB Last administered on 11/28/16 20: 15; Admin Dose 40 MG; Start 11/19/16 at 21:00 Benazepril HCl (Lotensin) 10 mg DAILY GTB Last administered on 11/29/16 08:22; Admin Dose 10 MG; Start 11/19/16 at 09:00 Docusate Sodium (Colace Liquid Cup) 200 mg DAILY PRN GTB CONSTIPATION; Start at 23:30 Famotidine (Pepcid) 20 mg DAILY GTB Last administered on 11/29/16 08:22; Admin Dose 20 MG; Start 11/19/16 at 09:00 Ferrous Sulfate (Feosol Liquid Cup) 330 mg DAILY GTB Last administered on 08:19; Admin Dose 330 MG; Start 11/19/16 at 09:00 Hydralazine HCl (Apresoline) 25 mg Q6H PRN GTB ELEVATED BLOOD PRESSURE Last administered on 11/27/16 12:45; Admin Dose 25 MG; Start 11/18/16 at 23:30 Metoprolol Tartrate (Lopressor) 25 mg BID GTB Last administered on 11/29/16 08: 21; Admin Dose 25 MG; Start 11/18/16 at 23:30 Mineral Oil (Fleet Mineral Oil Enema) 133 ml DAILY PRN [place] CONSTIPATION; Start 11/18/16 at 23:30 Multivitamins Therapeutic (Theragran) 1 tab DAILY PO Last administered on 08:24; Admin Dose 1 TAB; Start 11/19/16 at 09:00 Ondansetron HCl (Zofran Tab) 4 mg Q4H PRN GTB NAUSEA AND/OR VOMITING; Start at 23:30 Sodium Chloride (Nacl) 1 gm TID GTB Last administered on 11/29/16 08:22; Admin Dose 1 GM; Start 11/19/16 at 09:00 Tamsulosin HCl (Flomax) 0.4 mg HS PO Last administered on 11/28/16 20:15; Admin Dose 0.4 MG; Start 11/19/16 at 21:00 Glucagon (Glucagen) 1 mg DAILY PRN IM LOW GLUCOSE; Start 11/18/16 at 23:30 Miscellaneous Information 1 ea NOTE XX ; Start 11/18/16 at 23:45 Glucose (Glutose) 15 gm Q15M PRN PO DECREASED GLUCOSE; Start 11/18/16 at 23:45 Glucose (Glutose) 22.5 gm Q15M PRN PO DECREASED GLUCOSE; Start 11/18/16 at 23: 45 Dextrose (D50w Syringe) 25 ml Q15M PRN IV DECREASED GLUCOSE Last administered on 11/25/16 06:42; Admin Dose 25 ML; Start 11/18/16 at 23:45 Dextrose (D50w Syringe) 50 ml Q15M PRN IV DECREASED GLUCOSE; Start 11/18/16 at 23:45 Glucagon (Glucagen) 1 mg Q15M PRN IM DECREASED GLUCOSE; Start 11/18/16 at 23:45 Glucose (Glutose) 15 gm Q15M PRN BUCCAL DECREASED GLUCOSE; Start 11/18/16 at 23 :45 Diagnostic Test (Pha) (Accu-Chek) 1 ea Q6 XX Last administered on 11/29/16 05: 53; Admin Dose 1 EA; Start 11/20/16 at 00:00 Insulin Aspart (Novolog Insulin Pen) NOVOLOG *MILD* ALGORITHM Q6 SC Last administered on 11/28/16 12:51; Admin Dose 1 UNIT; Start 11/20/16 at 00:00 Insulin Detemir (Levemir) 10 unit BID SC Last administered on 11/29/16 08:40; Admin Dose 10 UNIT; Start 11/20/16 at 21:00 Potassium Chloride (Potassium Chloride Pwd/Soln) 40 meq DAILY GTB Last administered on 11/29/16 08:24; Admin Dose 40 MEQ; Start 11/23/16 at 09:00 Cephalexin (Keflex Susp (Ped)) 500 mg Q6 GTB Last administered on 11/29/16 05: 52; Admin Dose 500 MG; Start 11/26/16 at 01:30 NORY BARGER Nov 29, 2016 11:43
--- NOTE | 2016-11-29 13:47 | CONS ---
Date/Time of Note Date/Time of Note DATE: 11/29/16 TIME: 13:41 Assessment/Plan Assessment/Plan Additional Assessment/Plan 1. Severe hyponatremia, acute on chronic hyponatremia secondary to syndrome of inappropriate antidiuretic hormone with some prerenal azotemia. 2. History of possible chronic hyponatremia secondary to syndrome of inappropriate antidiuretic hormone. pt did not respond to max dose of Tolvaptan 300mg pO BID. Tolvaptan was not covered in the residential facility. 3. History of hypertension. 4. History of diabetes mellitus. 5. Chronic encephalopathy. 6. 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 7. History of G-tube in place. plan: on soidum chloride tablet 1 gram PO TID , Na dropped to 124- s/p tolvaptan 15 mg pO x 1 dose on 11/27/16 Na improved to 137 previolsy pt Na has been improved with one dose of tolvaptan - now will monitor Na and use tolvaptan as needed. Total time spent 30 minutes on this patient's follow up progress note, communicating with Nursing Staff, and discussing with MD. Further clinical recommendations depend upon patient's clinical course. Dw Dr Aguilar Tovar. Consultation Date/Type/Reason Admit Date/Time Nov 20, 2016 at 15:20 Initial Consult Date 11/19/16 Type of Consultation: NEPHROLOGY Referring Provider: JENELLE COLBY MD 24 HR Interval Summary Free Text/Dictation NAD, seems comfortable, sfebrile. dw staff. Subjective hx not possible: pt non-verbal Constitutional: requiring IVF, requiring O2 Exam/Review of Systems Vital Signs Vitals Vital Signs Date Time Temp Pulse Resp B/P Pulse Ox O2 Delivery O2 Flow Rate FiO2 11/29/16 12:23 63 11/29/16 11:48 98.1 18 128/60 98 11/29/16 09:58 30 Intake and Output 11/28/16 11/28/16 11/29/16 15:00 23:00 07:00 Intake Total 850 ml 460 ml Output Total 1800 ml 450 ml Balance -950 ml 10 ml Exam Constitutional: non-verbal Results Result Diagram: 11/28/16 0540 11/29/16 0604 Results 24 hrs Laboratory Tests Test 11/28/16 18:13 11/28/16 20:14 11/29/16 00:36 11/29/16 05:51 Bedside Glucose 122 117 104 82 Test 11/29/16 06:04 11/29/16 08:34 11/29/16 11:45 Sodium Level 137 Potassium Level 3.7 Chloride Level 105 Carbon Dioxide Level 28 Anion Gap 8 Blood Urea Nitrogen 15 Creatinine 0.28 L Glucose Level 83 # Calcium Level 8.4 Bedside Glucose 86 102 Medications Medications Current Medications Acetaminophen (Tylenol Tab) 650 mg Q6H PRN GTB PAIN AND OR ELEVATED TEMP; Start 11/18/16 at 23:30 Aspirin (Aspirin) 81 mg DAILY GTB Last administered on 11/29/16 08:18; Admin Dose 81 MG; Start 11/19/16 at 09:00 Atorvastatin Calcium (Lipitor) 40 mg QHS GTB Last administered on 11/28/16 20: 15; Admin Dose 40 MG; Start 11/19/16 at 21:00 Benazepril HCl (Lotensin) 10 mg DAILY GTB Last administered on 11/29/16 08:22; Admin Dose 10 MG; Start 11/19/16 at 09:00 Docusate Sodium (Colace Liquid Cup) 200 mg DAILY PRN GTB CONSTIPATION; Start at 23:30 Famotidine (Pepcid) 20 mg DAILY GTB Last administered on 11/29/16 08:22; Admin Dose 20 MG; Start 11/19/16 at 09:00 Ferrous Sulfate (Feosol Liquid Cup) 330 mg DAILY GTB Last administered on 08:19; Admin Dose 330 MG; Start 11/19/16 at 09:00 Hydralazine HCl (Apresoline) 25 mg Q6H PRN GTB ELEVATED BLOOD PRESSURE Last administered on 11/27/16 12:45; Admin Dose 25 MG; Start 11/18/16 at 23:30 Metoprolol Tartrate (Lopressor) 25 mg BID GTB Last administered on 11/29/16 08: 21; Admin Dose 25 MG; Start 11/18/16 at 23:30 Mineral Oil (Fleet Mineral Oil Enema) 133 ml DAILY PRN [place] CONSTIPATION; Start 11/18/16 at 23:30 Multivitamins Therapeutic (Theragran) 1 tab DAILY PO Last administered on 08:24; Admin Dose 1 TAB; Start 11/19/16 at 09:00 Ondansetron HCl (Zofran Tab) 4 mg Q4H PRN GTB NAUSEA AND/OR VOMITING; Start at 23:30 Sodium Chloride (Nacl) 1 gm TID GTB Last administered on 11/29/16 12:53; Admin Dose 1 GM; Start 11/19/16 at 09:00 Tamsulosin HCl (Flomax) 0.4 mg HS PO Last administered on 11/28/16 20:15; Admin Dose 0.4 MG; Start 11/19/16 at 21:00 Glucagon (Glucagen) 1 mg DAILY PRN IM LOW GLUCOSE; Start 11/18/16 at 23:30 Miscellaneous Information 1 ea NOTE XX ; Start 11/18/16 at 23:45 Glucose (Glutose) 15 gm Q15M PRN PO DECREASED GLUCOSE; Start 11/18/16 at 23:45 Glucose (Glutose) 22.5 gm Q15M PRN PO DECREASED GLUCOSE; Start 11/18/16 at 23: 45 Dextrose (D50w Syringe) 25 ml Q15M PRN IV DECREASED GLUCOSE Last administered on 11/25/16 06:42; Admin Dose 25 ML; Start 11/18/16 at 23:45 Dextrose (D50w Syringe) 50 ml Q15M PRN IV DECREASED GLUCOSE; Start 11/18/16 at 23:45 Glucagon (Glucagen) 1 mg Q15M PRN IM DECREASED GLUCOSE; Start 11/18/16 at 23:45 Glucose (Glutose) 15 gm Q15M PRN BUCCAL DECREASED GLUCOSE; Start 11/18/16 at 23 :45 Diagnostic Test (Pha) (Accu-Chek) 1 ea Q6 XX Last administered on 11/29/16 12: 13; Admin Dose 1 EA; Start 11/20/16 at 00:00 Insulin Aspart (Novolog Insulin Pen) NOVOLOG *MILD* ALGORITHM Q6 SC Last administered on 11/28/16 12:51; Admin Dose 1 UNIT; Start 11/20/16 at 00:00 Insulin Detemir (Levemir) 10 unit BID SC Last administered on 11/29/16 08:40; Admin Dose 10 UNIT; Start 11/20/16 at 21:00 Potassium Chloride (Potassium Chloride Pwd/Soln) 40 meq DAILY GTB Last administered on 11/29/16 08:24; Admin Dose 40 MEQ; Start 11/23/16 at 09:00 Cephalexin (Keflex Susp (Ped)) 500 mg Q6 GTB Last administered on 11/29/16 12: 53; Admin Dose 500 MG; Start 11/26/16 at 01:30 KENYATTA CAPPS Nov 29, 2016 13:47
--- NOTE | 2016-11-29 16:47 | CONS ---
Date/Time of Note Date/Time of Note DATE: 11/29/16 TIME: 16:46 Consult Date/Type/Reason Admit Date/Time Nov 20, 2016 at 15:20 Initial Consult Date 11/19/16 Type of Consultation: Pulm Ordering Provider: JENELLE COLBY MD Subjective On vent; not responsive Objective Vital Signs Date Time Temp Pulse Resp B/P Pulse Ox O2 Delivery O2 Flow Rate FiO2 11/29/16 16:21 64 11/29/16 15:50 14 97 30 11/29/16 15:34 98.8 119/59 Intake and Output 11/28/16 11/28/16 11/29/16 15:00 23:00 07:00 Intake Total 850 ml 460 ml Output Total 1800 ml 450 ml Balance -950 ml 10 ml Exam HEENT: Pupils equal, round, and reactive to light. Tracheostomy site clean and intact. CARDIAC: S1, S2, no added sounds or murmurs CHEST: Diminished air entry bilaterally. ABDOMEN: Mildly distended. Bowel sounds present no guarding or rebound EXTREMITIES: No cyanosis, clubbing edema +1 Results/Medications Result Diagram: 11/28/16 0540 11/29/16 0604 Results 24 hrs Laboratory Tests Test 11/28/16 18:13 11/28/16 20:14 11/29/16 00:36 11/29/16 05:51 Bedside Glucose 122 117 104 82 Test 11/29/16 06:04 11/29/16 08:34 11/29/16 11:45 Sodium Level 137 Potassium Level 3.7 Chloride Level 105 Carbon Dioxide Level 28 Anion Gap 8 Blood Urea Nitrogen 15 Creatinine 0.28 L Glucose Level 83 # Calcium Level 8.4 Bedside Glucose 86 102 Medications Current Medications Acetaminophen (Tylenol Tab) 650 mg Q6H PRN GTB PAIN AND OR ELEVATED TEMP; Start 11/18/16 at 23:30 Aspirin (Aspirin) 81 mg DAILY GTB Last administered on 11/29/16 08:18; Admin Dose 81 MG; Start 11/19/16 at 09:00 Atorvastatin Calcium (Lipitor) 40 mg QHS GTB Last administered on 11/28/16 20: 15; Admin Dose 40 MG; Start 11/19/16 at 21:00 Benazepril HCl (Lotensin) 10 mg DAILY GTB Last administered on 11/29/16 08:22; Admin Dose 10 MG; Start 11/19/16 at 09:00 Docusate Sodium (Colace Liquid Cup) 200 mg DAILY PRN GTB CONSTIPATION; Start at 23:30 Famotidine (Pepcid) 20 mg DAILY GTB Last administered on 11/29/16 08:22; Admin Dose 20 MG; Start 11/19/16 at 09:00 Ferrous Sulfate (Feosol Liquid Cup) 330 mg DAILY GTB Last administered on 08:19; Admin Dose 330 MG; Start 11/19/16 at 09:00 Hydralazine HCl (Apresoline) 25 mg Q6H PRN GTB ELEVATED BLOOD PRESSURE Last administered on 11/27/16 12:45; Admin Dose 25 MG; Start 11/18/16 at 23:30 Metoprolol Tartrate (Lopressor) 25 mg BID GTB Last administered on 11/29/16 08: 21; Admin Dose 25 MG; Start 11/18/16 at 23:30 Mineral Oil (Fleet Mineral Oil Enema) 133 ml DAILY PRN [place] CONSTIPATION; Start 11/18/16 at 23:30 Multivitamins Therapeutic (Theragran) 1 tab DAILY PO Last administered on 08:24; Admin Dose 1 TAB; Start 11/19/16 at 09:00 Ondansetron HCl (Zofran Tab) 4 mg Q4H PRN GTB NAUSEA AND/OR VOMITING; Start at 23:30 Sodium Chloride (Nacl) 1 gm TID GTB Last administered on 11/29/16 12:53; Admin Dose 1 GM; Start 11/19/16 at 09:00 Tamsulosin HCl (Flomax) 0.4 mg HS PO Last administered on 11/28/16 20:15; Admin Dose 0.4 MG; Start 11/19/16 at 21:00 Glucagon (Glucagen) 1 mg DAILY PRN IM LOW GLUCOSE; Start 11/18/16 at 23:30 Miscellaneous Information 1 ea NOTE XX ; Start 11/18/16 at 23:45 Glucose (Glutose) 15 gm Q15M PRN PO DECREASED GLUCOSE; Start 11/18/16 at 23:45 Glucose (Glutose) 22.5 gm Q15M PRN PO DECREASED GLUCOSE; Start 11/18/16 at 23: 45 Dextrose (D50w Syringe) 25 ml Q15M PRN IV DECREASED GLUCOSE Last administered on 11/25/16 06:42; Admin Dose 25 ML; Start 11/18/16 at 23:45 Dextrose (D50w Syringe) 50 ml Q15M PRN IV DECREASED GLUCOSE; Start 11/18/16 at 23:45 Glucagon (Glucagen) 1 mg Q15M PRN IM DECREASED GLUCOSE; Start 11/18/16 at 23:45 Glucose (Glutose) 15 gm Q15M PRN BUCCAL DECREASED GLUCOSE; Start 11/18/16 at 23 :45 Diagnostic Test (Pha) (Accu-Chek) 1 ea Q6 XX Last administered on 11/29/16 12: 13; Admin Dose 1 EA; Start 11/20/16 at 00:00 Insulin Aspart (Novolog Insulin Pen) NOVOLOG *MILD* ALGORITHM Q6 SC Last administered on 11/28/16 12:51; Admin Dose 1 UNIT; Start 11/20/16 at 00:00 Insulin Detemir (Levemir) 10 unit BID SC Last administered on 11/29/16 08:40; Admin Dose 10 UNIT; Start 11/20/16 at 21:00 Potassium Chloride (Potassium Chloride Pwd/Soln) 40 meq DAILY GTB Last administered on 11/29/16 08:24; Admin Dose 40 MEQ; Start 11/23/16 at 09:00 Cephalexin (Keflex Susp (Ped)) 500 mg Q6 GTB Last administered on 11/29/16 12: 53; Admin Dose 500 MG; Start 11/26/16 at 01:30 Assessment/Plan Additional Assessment/Plan IMP: 1. Vent dependent respiratory failure 2. 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 Dysphagia with G-tube 4. Anemia of chronic disease 5. Hyponatremia likely SIADH RECS: 1. Agree with palliative care consult-->DNR 2. Continue mechanical ventilation 3. Continue DVT and GI prophylaxis 4. TF/Free H2O ELINA BENTLEY MD Nov 29, 2016 16:47
[2016-11-29] MEDS: ATORVASTATIN 40 MG TAB GTB SCH (21:17)
[2016-11-29] MEDS: TAMSULOSIN (SR) 0.4 MG CAP PO SCH (21:17)
[2016-11-30] VITALS (19 sets, daily range): BP systolic 101–139; BP diastolic 53–65; PULSE 58–93; RESP 12–64
[2016-11-30] MEDS: INSULIN ASPART [NOVOLOG] 3 ML PEN SC SCH ×4 (06:00→17:29)
[2016-11-30] MEDS: CEPHALEXIN (50 MG/ML PO SYG) GTB SCH ×4 (06:08→17:28)
[2016-11-30] MEDS: ACCU-CHEK XX SCH ×4 (06:09→17:29)
[2016-11-30 07:09] LABS: ADD SCAN DIFF NO
[2016-11-30 07:14] LABS: BASOPHIL # 0.1 10^3/ul (0.0-0.1); BASOPHILS % 1.1 % (0.0-2.0); EOSINOPHILS # 0.2 10^3/ul (0.0-0.5); EOSINOPHILS % 2.4 % (0.0-7.0); HEMATOCRIT 31.2 % (42.0-52.0); HEMOGLOBIN 9.8 g/dl (14.0-18.0); LYMPHOCYTES # 0.8 10^3/ul (0.8-2.9); LYMPHOCYTES % 10.2 % (15.0-51.0); MEAN CORPUSCULAR HGB CONC 31.4 g/dl (32.0-37.0); MEAN CORPUSCULAR VOLUME 92.3 fl (82.0-101.0); MEAN PLATELET VOLUME 9.5 fl (7.4-10.4); MONOCYTE # 1.1 10^3/ul (0.3-0.9); MONOCYTES % 13.2 % (0.0-11.0); NEUTROPHILS % 72.1 % (39.0-77.0); PLATELET COUNT 255 10^3/UL (140-415); RED BLOOD COUNT 3.38 10^6/ul (4.70-6.10); RED CELL DISTRIBUTION WIDTH 17.3 % (11.5-14.5); WHITE BLOOD COUNT 8.3 10^3/ul (4.8-10.8)
[2016-11-30 07:29] LABS: POTASSIUM 4.3 mmol/L (3.5-5.1)
[2016-11-30 07:31] LABS: CREATININE 0.32 mg/dl (0.61-1.24)
[2016-11-30 07:32] LABS: CALCIUM 8.2 mg/dl (8.4-10.2)
[2016-11-30] MEDS: FERROUS SULFATE 60 MG/ML 5ML CUP GTB SCH (09:55)
[2016-11-30] MEDS: POTASSIUM CHLORIDE 20 MEQ POWDER FOR ORAL SOLN GTB SCH (09:55)
[2016-11-30] MEDS: MULTIVITAMINS THERAPEUTIC TAB PO SCH (09:56)
[2016-11-30] MEDS: BENAZEPRIL 10 MG TAB GTB SCH (09:56)
[2016-11-30] MEDS: SODIUM CHLORIDE 1 GM TAB GTB SCH ×2 (09:56→12:34)
[2016-11-30] MEDS: METOPROLOL 25 MG TAB GTB SCH (09:56)
[2016-11-30] MEDS: FAMOTIDINE 20 MG TAB GTB SCH (09:56)
[2016-11-30] MEDS: ASPIRIN 81 MG TAB GTB SCH (09:56)
[2016-11-30] MEDS: INSULIN DETEMIR [LEVEMIR] 3ML CART SC SCH (10:15)
--- NOTE | 2016-11-30 11:35 | CONS ---
Date/Time of Note Date/Time of Note DATE: 11/30/16 TIME: 11:34 Consult Date/Type/Reason Admit Date/Time Nov 20, 2016 at 15:20 Initial Consult Date 11/19/16 Type of Consultation: Pulm Ordering Provider: JENELLE COLBY MD Subjective No significant changes patient remains somnolent Objective Vital Signs Date Time Temp Pulse Resp B/P Pulse Ox O2 Delivery O2 Flow Rate FiO2 11/30/16 11:22 30 11/30/16 11:05 58 12 99 11/30/16 07:36 97.6 116/56 Intake and Output 11/29/16 11/29/16 11/30/16 15:00 23:00 07:00 Intake Total 850 ml 720 ml Output Total 400 ml 450 ml Balance 450 ml 270 ml Exam PHYSICAL EXAMINATION GENERAL: Chronically ill-appearing gentleman on mechanical ventilation VITAL SIGNS: see below. HEENT: Pupils equal, round, and reactive to light. Tracheostomy site clean and intact. CARDIAC: S1, S2, no added sounds or murmurs CHEST: Diminished air entry bilaterally. ABDOMEN: Mildly distended. Bowel sounds present no guarding or rebound EXTREMITIES: No cyanosis, clubbing edema +1 NEUROLOGIC: Generalized weakness Results/Medications Result Diagram: 11/30/16 0630 11/30/16 0630 Results 24 hrs Laboratory Tests Test 11/29/16 11:45 11/29/16 17:46 11/29/16 21:11 11/29/16 23:53 Bedside Glucose 102 99 108 102 Test 11/30/16 06:05 11/30/16 06:30 Bedside Glucose 109 White Blood Count 8.3 # Red Blood Count 3.38 L Hemoglobin 9.8 L Hematocrit 31.2 L Mean Corpuscular Volume 92.3 Mean Corpuscular Hemoglobin 29.0 Mean Corpuscular Hemoglobin Concent 31.4 L Red Cell Distribution Width 17.3 H Platelet Count 255 Mean Platelet Volume 9.5 Neutrophils % 72.1 Lymphocytes % 10.2 L Monocytes % 13.2 H Eosinophils % 2.4 Basophils % 1.1 Nucleated Red Blood Cells % 0.0 Neutrophils # 6.0 Lymphocytes # 0.8 Monocytes # 1.1 H Eosinophils # 0.2 Basophils # 0.1 Nucleated Red Blood Cells # 0.0 Sodium Level 133 L Potassium Level 4.3 Chloride Level 103 Carbon Dioxide Level 29 Anion Gap 5 L Blood Urea Nitrogen 20 Creatinine 0.32 L Glucose Level 106 Calcium Level 8.2 L Medications Current Medications Acetaminophen (Tylenol Tab) 650 mg Q6H PRN GTB PAIN AND OR ELEVATED TEMP; Start 11/18/16 at 23:30 Aspirin (Aspirin) 81 mg DAILY GTB Last administered on 11/30/16 09:56; Admin Dose 81 MG; Start 11/19/16 at 09:00 Atorvastatin Calcium (Lipitor) 40 mg QHS GTB Last administered on 11/29/16 21: 17; Admin Dose 40 MG; Start 11/19/16 at 21:00 Benazepril HCl (Lotensin) 10 mg DAILY GTB Last administered on 11/30/16 09:56; Admin Dose 10 MG; Start 11/19/16 at 09:00 Docusate Sodium (Colace Liquid Cup) 200 mg DAILY PRN GTB CONSTIPATION; Start at 23:30 Famotidine (Pepcid) 20 mg DAILY GTB Last administered on 11/30/16 09:56; Admin Dose 20 MG; Start 11/19/16 at 09:00 Ferrous Sulfate (Feosol Liquid Cup) 330 mg DAILY GTB Last administered on 09:55; Admin Dose 330 MG; Start 11/19/16 at 09:00 Hydralazine HCl (Apresoline) 25 mg Q6H PRN GTB ELEVATED BLOOD PRESSURE Last administered on 11/27/16 12:45; Admin Dose 25 MG; Start 11/18/16 at 23:30 Metoprolol Tartrate (Lopressor) 25 mg BID GTB Last administered on 11/30/16 09: 56; Admin Dose 25 MG; Start 11/18/16 at 23:30 Mineral Oil (Fleet Mineral Oil Enema) 133 ml DAILY PRN [place] CONSTIPATION; Start 11/18/16 at 23:30 Multivitamins Therapeutic (Theragran) 1 tab DAILY PO Last administered on 09:56; Admin Dose 1 TAB; Start 11/19/16 at 09:00 Ondansetron HCl (Zofran Tab) 4 mg Q4H PRN GTB NAUSEA AND/OR VOMITING; Start at 23:30 Sodium Chloride (Nacl) 1 gm TID GTB Last administered on 11/30/16 09:56; Admin Dose 1 GM; Start 11/19/16 at 09:00 Tamsulosin HCl (Flomax) 0.4 mg HS PO Last administered on 11/29/16 21:17; Admin Dose 0.4 MG; Start 11/19/16 at 21:00 Glucagon (Glucagen) 1 mg DAILY PRN IM LOW GLUCOSE; Start 11/18/16 at 23:30 Miscellaneous Information 1 ea NOTE XX ; Start 11/18/16 at 23:45 Glucose (Glutose) 15 gm Q15M PRN PO DECREASED GLUCOSE; Start 11/18/16 at 23:45 Glucose (Glutose) 22.5 gm Q15M PRN PO DECREASED GLUCOSE; Start 11/18/16 at 23: 45 Dextrose (D50w Syringe) 25 ml Q15M PRN IV DECREASED GLUCOSE Last administered on 11/25/16 06:42; Admin Dose 25 ML; Start 11/18/16 at 23:45 Dextrose (D50w Syringe) 50 ml Q15M PRN IV DECREASED GLUCOSE; Start 11/18/16 at 23:45 Glucagon (Glucagen) 1 mg Q15M PRN IM DECREASED GLUCOSE; Start 11/18/16 at 23:45 Glucose (Glutose) 15 gm Q15M PRN BUCCAL DECREASED GLUCOSE; Start 11/18/16 at 23 :45 Diagnostic Test (Pha) (Accu-Chek) 1 ea Q6 XX Last administered on 11/30/16 06: 09; Admin Dose 1 EA; Start 11/20/16 at 00:00 Insulin Aspart (Novolog Insulin Pen) NOVOLOG *MILD* ALGORITHM Q6 SC Last administered on 11/28/16 12:51; Admin Dose 1 UNIT; Start 11/20/16 at 00:00 Insulin Detemir (Levemir) 10 unit BID SC Last administered on 11/30/16 10:15; Admin Dose 10 UNIT; Start 11/20/16 at 21:00 Potassium Chloride (Potassium Chloride Pwd/Soln) 40 meq DAILY GTB Last administered on 11/30/16 09:55; Admin Dose 40 MEQ; Start 11/23/16 at 09:00 Cephalexin (Keflex Susp (Ped)) 500 mg Q6 GTB Last administered on 11/30/16 06: 08; Admin Dose 500 MG; Start 11/26/16 at 01:30 Assessment/Plan Chief Complaint/Hosp Course Assessment 1. Vent dependent respiratory failure 2. Encephalopathy, brainstem glioma with SWAMPER shunt 3. Dysphagia with G-tube 4. Anemia of chronic disease 5. Hyponatremia likely SIADH now improved Plan 1. Agree with palliative care consult 2. Continue mechanical ventilation 3. Continue DVT and GI prophylaxis 4. Tube feeding as tolerated 5. Consider holding free water flushes consider fluid restriction, renal recommendations Disposition Consider transfer back to [facility] facility Problems: JOSE MONTES DE OCA MD, [facility] Nov 30, 2016 11:35
--- NOTE | 2016-11-30 12:28 | CONS ---
Date/Time of Note Date/Time of Note DATE: 11/30/16 TIME: 12:26 Assessment/Plan Assessment/Plan Additional Assessment/Plan 1. Severe hyponatremia, acute on chronic hyponatremia secondary to syndrome of inappropriate antidiuretic hormone with some prerenal azotemia. 2. History of possible chronic hyponatremia secondary to syndrome of inappropriate antidiuretic hormone. pt did not respond to max dose of demeclocycline 300mg pO BID. Tolvaptan was not covered in the residential facility. 3. History of hypertension. 4. History of diabetes mellitus. 5. Chronic encephalopathy. 6. 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 7. History of G-tube in place. plan: on soidum chloride tablet 1 gram PO TID ,s/p tolvaptan 15 mg pO x 1 dose on - Na 133 today Na improved to 133 previolsy pt Na has been improved with one dose of tolvaptan - now will monitor Na and use tolvaptan as needed. will follow up Consultation Date/Type/Reason Admit Date/Time Initial Consult Date 11/18/16 Type of Consultation: NEPHROLOGY Reason for Consultation Severe hyponatremia Referring Provider: JENELLE COLBY MD Exam/Review of Systems Vital Signs Vitals Vital Signs Date Time Temp Pulse Resp B/P Pulse Ox O2 Delivery O2 Flow Rate FiO2 11/30/16 11:46 97.7 58 16 139/65 99 11/30/16 11:22 30 Intake and Output 11/29/16 11/29/16 11/30/16 15:00 23:00 07:00 Intake Total 850 ml 720 ml Output Total 400 ml 450 ml Balance 450 ml 270 ml Exam GENERAL: no acute distress, non verbal, non communicative LUNGS: Bilateral coarse breath sounds heard. No wheezing. HEART: S1, S2, tachycardia, no murmur. ABDOMEN: Soft. G-tube site is clear. No leaking, no discharge. Erythema around the G-tube. EXTREMITIES: 1+ pitting edema in the right ankle. SKIN: The patient has some pressure ulcers on admissions including the right heel and buttocks. small open wound on toe, s/p podiatry evaluation Results Result Diagram: 11/30/16 0630 11/30/16 0630 Results 24 hrs Laboratory Tests Test 11/29/16 17:46 11/29/16 21:11 11/29/16 23:53 11/30/16 06:05 Bedside Glucose 99 108 102 109 Test 11/30/16 06:30 White Blood Count 8.3 # Red Blood Count 3.38 L Hemoglobin 9.8 L Hematocrit 31.2 L Mean Corpuscular Volume 92.3 Mean Corpuscular Hemoglobin 29.0 Mean Corpuscular Hemoglobin Concent 31.4 L Red Cell Distribution Width 17.3 H Platelet Count 255 Mean Platelet Volume 9.5 Neutrophils % 72.1 Lymphocytes % 10.2 L Monocytes % 13.2 H Eosinophils % 2.4 Basophils % 1.1 Nucleated Red Blood Cells % 0.0 Neutrophils # 6.0 Lymphocytes # 0.8 Monocytes # 1.1 H Eosinophils # 0.2 Basophils # 0.1 Nucleated Red Blood Cells # 0.0 Sodium Level 133 L Potassium Level 4.3 Chloride Level 103 Carbon Dioxide Level 29 Anion Gap 5 L Blood Urea Nitrogen 20 Creatinine 0.32 L Glucose Level 106 Calcium Level 8.2 L Medications Medications Current Medications Acetaminophen (Tylenol Tab) 650 mg Q6H PRN GTB PAIN AND OR ELEVATED TEMP; Start 11/18/16 at 23:30 Aspirin (Aspirin) 81 mg DAILY GTB Last administered on 11/30/16 09:56; Admin Dose 81 MG; Start 11/19/16 at 09:00 Atorvastatin Calcium (Lipitor) 40 mg QHS GTB Last administered on 11/29/16 21: 17; Admin Dose 40 MG; Start 11/19/16 at 21:00 Benazepril HCl (Lotensin) 10 mg DAILY GTB Last administered on 11/30/16 09:56; Admin Dose 10 MG; Start 11/19/16 at 09:00 Docusate Sodium (Colace Liquid Cup) 200 mg DAILY PRN GTB CONSTIPATION; Start at 23:30 Famotidine (Pepcid) 20 mg DAILY GTB Last administered on 11/30/16 09:56; Admin Dose 20 MG; Start 11/19/16 at 09:00 Ferrous Sulfate (Feosol Liquid Cup) 330 mg DAILY GTB Last administered on 09:55; Admin Dose 330 MG; Start 11/19/16 at 09:00 Hydralazine HCl (Apresoline) 25 mg Q6H PRN GTB ELEVATED BLOOD PRESSURE Last administered on 11/27/16 12:45; Admin Dose 25 MG; Start 11/18/16 at 23:30 Metoprolol Tartrate (Lopressor) 25 mg BID GTB Last administered on 11/30/16 09: 56; Admin Dose 25 MG; Start 11/18/16 at 23:30 Mineral Oil (Fleet Mineral Oil Enema) 133 ml DAILY PRN [place] CONSTIPATION; Start 11/18/16 at 23:30 Multivitamins Therapeutic (Theragran) 1 tab DAILY PO Last administered on 09:56; Admin Dose 1 TAB; Start 11/19/16 at 09:00 Ondansetron HCl (Zofran Tab) 4 mg Q4H PRN GTB NAUSEA AND/OR VOMITING; Start at 23:30 Sodium Chloride (Nacl) 1 gm TID GTB Last administered on 11/30/16 09:56; Admin Dose 1 GM; Start 11/19/16 at 09:00 Tamsulosin HCl (Flomax) 0.4 mg HS PO Last administered on 11/29/16 21:17; Admin Dose 0.4 MG; Start 11/19/16 at 21:00 Glucagon (Glucagen) 1 mg DAILY PRN IM LOW GLUCOSE; Start 11/18/16 at 23:30 Miscellaneous Information 1 ea NOTE XX ; Start 11/18/16 at 23:45 Glucose (Glutose) 15 gm Q15M PRN PO DECREASED GLUCOSE; Start 11/18/16 at 23:45 Glucose (Glutose) 22.5 gm Q15M PRN PO DECREASED GLUCOSE; Start 11/18/16 at 23: 45 Dextrose (D50w Syringe) 25 ml Q15M PRN IV DECREASED GLUCOSE Last administered on 11/25/16 06:42; Admin Dose 25 ML; Start 11/18/16 at 23:45 Dextrose (D50w Syringe) 50 ml Q15M PRN IV DECREASED GLUCOSE; Start 11/18/16 at 23:45 Glucagon (Glucagen) 1 mg Q15M PRN IM DECREASED GLUCOSE; Start 11/18/16 at 23:45 Glucose (Glutose) 15 gm Q15M PRN BUCCAL DECREASED GLUCOSE; Start 11/18/16 at 23 :45 Diagnostic Test (Pha) (Accu-Chek) 1 ea Q6 XX Last administered on 11/30/16 06: 09; Admin Dose 1 EA; Start 11/20/16 at 00:00 Insulin Aspart (Novolog Insulin Pen) NOVOLOG *MILD* ALGORITHM Q6 SC Last administered on 11/28/16 12:51; Admin Dose 1 UNIT; Start 11/20/16 at 00:00 Insulin Detemir (Levemir) 10 unit BID SC Last administered on 11/30/16 10:15; Admin Dose 10 UNIT; Start 11/20/16 at 21:00 Potassium Chloride (Potassium Chloride Pwd/Soln) 40 meq DAILY GTB Last administered on 11/30/16 09:55; Admin Dose 40 MEQ; Start 11/23/16 at 09:00 Cephalexin (Keflex Susp (Ped)) 500 mg Q6 GTB Last administered on 11/30/16 06: 08; Admin Dose 500 MG; Start 11/26/16 at 01:30 LISSA PARK MD Nov 30, 2016 12:28
--- NOTE | 2016-12-01 06:29 | DS ---
DATE OF ADMISSION: 11/20/2016 DATE OF DISCHARGE: 11/30/2016 FINAL DIAGNOSES: 1. Acute on chronic hyponatremia secondary to syndrome of inappropriate antidiuretic hormone. 2. Ventilator-dependent respiratory failure. 3. 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 4. Status post cerebrovascular accident. 5. Chronic encephalopathy. 6. Seizure disorder. 7. Dysphagia with G-tube. 8. Transaminitis. 9. Diabetes mellitus type 2. 10. Hypertension. 11. Hyperlipidemia. 12. Bedridden status with functional quadriplegia. 13. Multiple pressure sores present on admission. 14. Right great big toe ulcer. BRIEF HISTORY: The patient is an unfortunate 51-year-old male with history of brainstem glioma stat us post ventriculoperitoneal shunt, status post ventilator-dependent respiratory failure with trache ostomy. The patient with chronic encephalopathy, seizure disorder, hypertension, CVA, and bedridden status. The patient had persistent hyponatremia secondary to syndrome of inappropriate antidiureti c hormone, and patient [facility] on demeclocycline with stable sodium; how ever, the patient did develop hyponatremia which was noted on routine lab to [facility] and was brought for further evaluation and management. The patient's sodium was 124 on admission. The patient was admitted for further evaluation and management. HOSPITAL COURSE: The patient was evaluated by Dr. Tovar in nephrology consultation. The patient wa s given sodium tablets t.i.d. and a dose of tolvaptan. The patient was also followed by Dr. Clarke in pulmonology consultation. Continue the ventilator support. The patient was evaluated by Dr. Jeremiah green in palliative care services. Dr. Lucio met with the patient's family. The patient is cur rently DNR status. However, the patient with bedridden status and chronic encephalopathy and brains tem glioma; however, by the patient's , wants to continue with current treatment and does not wa nt to withdraw care in spite of the fact that the patient remained in vegetative state. The patient was also evaluated by Dr. Jaffe in podiatry consultation and was continued on current wound care. The patient also noted to have E coli ESBL and was started on Keflex. The patient did not have any leukocytosis, no fever. The patient's condition improved. The patient's electrolytes were closely monitored and the patient's sodium is stable now, and the [facility]. CONDITION ON DISCHARGE: Hemodynamically stable. ACTIVITY: As patient tolerates. DISCHARGE DIET: Continue current G-tube feeding. MEDICATIONS ON DISCHARGE: 1. Tylenol. 2. Aspirin. 3. Lipitor 4. Atorvastatin. 5. Lotensin. 6. Keflex for 5 more days. 7. Colace. 8. Pepcid. 9. Ferrous sulfate. 10. Hypoglycemia protocol. 11. ____. 12. Hydralazine. 13. NovoLog per mild algorithm sliding scale. 14. Levemir 10 units subQ b.i.d. 15. Lopressor 25 mg G-tube b.i.d. 16. Mineral oil enema p.r.n. 17. Multivitamins. 18. Zofran p.r.n. for nausea. 19. Sodium chloride tablets 1 g G-tube 3 times a day. 20. Tolvaptan 15 mg G-tube each week. Next dose due on 12/04/2016 per recommendation of nephrology , and the patient is to continue to monitor electrolytes, BNP every 2 weeks. 21. Flomax and breathing treatments p.r.n. for shortness of breath. Interdisciplinary plan of care was established for this patient. Plan of care was discussed with Dr Manuel Colby. Dictated By: ALTHEA ACOSTA DIRECTOR MISSION for JENELLE COLBY MD SR/NTS Conf#: [id number] DID#: [id number]
== END 2016-11-30 18:50 | DRG 643 ==
LOC: E/R 00:13 → TEL 02:08 → OBSVTOIN 11-20 15:20
PROVIDERS: ADMIT Internal Medicine; ATTEND Internal Medicine
PROC: 5A1945Z Respiratory Ventilation, 24-96 Consecutive Hours (ICD-10-PCS; principal; 2016-11-20)
DX: E22.2 Syndrome of inappropriate secretion of antidiuretic hormone (principal); G93.49 Other encephalopathy; Z99.11 Dependence on respirator [ventilator] status; R40.3 Persistent vegetative state; J96.10 Chronic respiratory failure, unspecified whether with hypoxia or hypercapnia; R53.2 Functional quadriplegia; L89.151 Pressure ulcer of sacral region, stage 1; C71.7 Malignant neoplasm of brain stem; Z99.81 Dependence on supplemental oxygen; Z66 Do not resuscitate; Z93.0 Tracheostomy status; I10 Essential (primary) hypertension; E11.9 Type 2 diabetes mellitus without complications; Z93.1 Gastrostomy status; G40.909 Epilepsy, unspecified, not intractable, without status epilepticus; R13.10 Dysphagia, unspecified; Z98.2 Presence of cerebrospinal fluid drainage device; Z74.01 Bed confinement status; Z86.73 Personal history of transient ischemic attack (TIA), and cerebral infarction without residual deficits; R74.0 Nonspecific elevation of levels of transaminase and lactic acid dehydrogenase [LDH]; D63.8 Anemia in other chronic diseases classified elsewhere; L60.0 Ingrowing nail; L03.031 Cellulitis of right toe; A49.8 Other bacterial infections of unspecified site; L89.891 Pressure ulcer of other site, stage 1
CPT/HCPCS: 71010; 76700; 80048; 80053; 81001; 81003; 82533; 82962; 83880; 83930; 83935; 84295; 84300; 84439; 84443; 84450; 84460; 84484; 85025; 85610; 85730; 87081; 87086; 93005; 94002; 94003; 97162; G0378; J1815; J7040